=== PATIENT | female | born 1980 | race African-American/Black ===

== ENCOUNTER 2017-04-12 05:30 | Outpatient (CLI) | payer MEDICAID ==
[~2017-04-12] VITALS: Ht 167.6 cm; Wt 149.7 kg
[~2017-04-12 05:30] MED LIST: AC500T PO; AMOX500C2 PO; CARB200T6 PO; CETI10TA17 PO; CYCL10TA9 PO; DULO30CA PO; GABA800T2 PO; HCTZ12.5T PO; HYDR-3816 PO; HYDR-757 PO; HYDR1TAB3 PO; IBP800T PO; LRZ1T PO; METR500T PO; MOBIC; MTF500T PO; NAPR-243 PO; OMEP40CA36 PO; ONDA8TAB9 PO; PREG50C PO; PRM25T PO; RABE20TA PO; TRAM50TA2 PO; TRAZ150T42 PO; VENL25TA5 PO
[2017-04-12] MEDS ORDERED: CHOL500050 PO (11:31)
[2017-04-12] MEDS ORDERED: NF-PILO5T PO (11:31)
[2017-04-12] MEDS ORDERED: CYCL10TA9 PO (11:31)
== END 2017-04-12 11:33 ==
LOC: PREOP 05:30
PROVIDERS: ATTEND Surgery
DX: Z01.818 Encounter for other preprocedural examination (principal); D64.9 Anemia, unspecified

== ENCOUNTER 2017-04-16 10:14 | Day surgery (SDC) | payer MEDICAID ==
[~2017-04-16] VITALS: Ht 167.6 cm; Wt 149.7 kg
[~2017-04-16 10:14] MED LIST changes: +CHOL500050 PO; +NF-PILO5T PO
--- OUTSIDE RECORDS SUMMARY | 2017-04-16 10:19 | XMS REPORT | Continuity of Care Document ---
Author Author [employer] Organization [facility] Address Unknown Phone Unavailable Care Team Providers Care Director Of Tax Services Name Role Phone [employer] Unavailable Unavailable Problems Medications Allergies, Adverse Reactions, Alerts Immunizations Results Vital Signs Encounters Location Location Details Encounter Type Encounter Number Reason For Visit Attending Provider ADM Date DC Date Status Source O 02/19/2017 Active [facility] OUTPATIENT [id number] JONI ACKERMAN 02/19/20172016 Active [facility] Procedures Plan of Care Social History Assessment and Plan Family History Value Date Source Advance Directives Order Name Results Value Date Source
--- OUTSIDE RECORDS SUMMARY | 2017-04-16 10:19 | XMS REPORT | Clinical Summary ---
Author Author [facility] Organization [facility] Address Unknown Phone Unavailable Care Team Providers Care Warehouse Insulation Worker Name Role Phone PCP Unavailable Source Comments Some departments are not documenting in the electronic medical record. If you do not see the information that you expected, contact Release of Information in the Health Information Management department at [phone] for further assistance in locating additional records.[facility] Allergies Active Allergy Reactions Severity Noted Date Comments Meperidine SWELLING 07/23/2007 Duloxetine NAUSEA AND VOMITING Low 12/21/2015 Venlafaxine NAUSEA ONLY Low 12/21/2015 Pregabalin NAUSEA AND VOMITING Low 12/21/2015 Naproxen NAUSEA AND VOMITING Low 12/21/2015 Gabapentin NAUSEA AND VOMITING Low 12/21/2015 Current Medications Prescription Sig. Disp. Refills Start End Date Status Date cyclobenzaprine Take 10 mg by mouth three Active (FLEXERIL) 10 mg tablet times daily as needed for Muscle Cramps. traMADol (ULTRAM) 50 mg Take 50 mg by mouth every Active tablet 6 hours as needed for Pain. omeprazole DR(+) Take 40 mg by mouth twice Active (PRILOSEC) 40 mg capsule daily. sertraline (ZOLOFT) 100 Take 100 mg by mouth Active mg tablet daily. hydrocortisone (CORTEF) 5 Take 20 mg by mouth daily Active mg tab with breakfast. HYDROcodone/acetaminophen Take 1 Tab by mouth every Active (NORCO) 7.5/325 mg tablet 6 hours as needed for Pain ergocalciferol (VITAMIN Take 1 Cap by mouth every 8 Cap 0 02/24/20 Active D) 50,000 unit 7 days. After eight 16 capsuleIndications: weeks, recheck blood VITAMIN D DEFICIENCY level. Indications: VITAMIN D DEFICIENCY fluticasone (FLONASE) 50 Apply to each nostril as Active mcg/actuation nasal spray directed daily. Shake bottle gently before using. vitamins, B complex tab Take 1 Tab by mouth Active daily. carBAMazepine (TEGRETOL) Take 1 Tab by mouth twice 60 Tab 2 11/16/19 Active 200 mg tabletIndications: daily. 17 Fibromyalgia, Carpal tunnel syndrome of left wrist, Paresthesia of both feet phentermine-topiramate Take 1 Cap by mouth every Active (QSYMIA) 3.75-23 mg morning. capsule pilocarpine (SALAGEN) 5 Take 1 Tab by mouth three 100 Tab 3 11/22/19 Active mg tabletIndications: times daily. Indications: 17 XEROSTOMIA XEROSTOMIA Active Problems Problem Noted Date Chronic pain of left knee 08/01/2016 Idiopathic polyneuropathy 04/17/2016 JOSE positive 04/17/2016 Chronic nonintractable headache 04/17/2016 Heat intolerance 04/17/2016 Malaise and fatigue 02/22/2016 Hypovitaminosis D 02/22/2016 Fibromyalgia 12/21/2015 Bipolar affective disorder (HCC) 08/19/2007 Alcoholism ([facility]) 08/19/2007 Obesity 08/19/2007 Encounters Date Type Specialty Care Team Description 02/19/2017 Hospital Tab Norman DO Fibromyalgia Encounter 02/19/2017 Office Visit Neurology Tab Norman DO Fibromyalgia (Primary Dx);Idiopathic polyneuropathy;JOSE positive;Morbid obesity, unspecified obesity type 02/11/2017 Telephone Allergy,Immunology and Emerald Arita MD Follow- up Phone Call Rheumatology from Last 3 Months Family History Medical History Relation Name Comments Autism Brother Allergy-severe Daughter Arthritis Father Heart Attack Mother Heart Disease Mother Arthritis Other Cancer Other Colon/ Breast Diabetes Other Stroke Other Allergy-severe Son Anxiety Son Fibromyalgia Son Inflammatory Bowel Son Disease Other Son Chronic Fatigue Syndrome Relation Name Status Comments Brother Alive Daughter Alive Father Alive Maternal Grandmother cancer, ? primary Mother obese, panic attacks Other Paternal Grandfather colon cancer Son Alive Social History Tobacco Use Types Packs/Day Years Used Date Never Smoker Smokeless Tobacco: Never Used Tobacco Cessation: Counseling Given: No Alcohol Use Drinks/Week oz/Week Comments No 0 Standard 0.0 drinks three times a year now drinks or equivalent Sex Assigned at Date Recorded Not on file Last Filed Vital Signs Vital Sign Reading Time Taken Blood Pressure 146/87 02/19/2017 10:31 AM CDT Pulse 99 02/19/2017 10:31 AM CDT Temperature 37.1 C (98.7 F) 02/19/2017 10:31 AM CDT Respiratory Rate 16 02/19/2017 10:31 AM CDT Oxygen Saturation 100% 02/19/2017 10:31 AM CDT Inhaled Oxygen - - Concentration Weight 151 kg (333 lb) 02/19/2017 10:31 AM CDT Height 167.6 cm (5' 6") 02/19/2017 10:31 AM CDT Body Mass Index 53.75 02/19/2017 10:31 AM CDT Plan of Treatment Health Maintenance Due Date Last Done Comments PHYSICAL (COMPREHENSIVE) 1988 EXAM PERTUSSIS VACCINE 1992 TETANUS VACCINE 1998 CERVICAL CANCER SCREENING 2011 INFLUENZA VACCINE 01/29/2017 Results * CBC AND DIFF (02/19/2017 11:52 AM) Component Value Ref Range White Blood Cells 6.1 4.5 - 11.0 K/UL RBC 4.68 4.0 - 5.0 M/UL Hemoglobin 11.6 (L) 12.0 - 15.0 GM/DL Hematocrit 36.1 36 - 45 % MCV 77.2 (L) 80 - 100 FL MCH 24.7 (L) 26 - 34 PG MCHC 32.0 32.0 - 36.0 G/DL RDW 15.0 11 - 15 % Platelet Count 278 150 - 400 K/UL MPV 8.8 7 - 11 FL Neutrophils 51 41 - 77 % Lymphocytes 39 24 - 44 % Monocytes 7 4 - 12 % Eosinophils 2 0 - 5 % Basophils 1 0 - 2 % Absolute Neutrophil Count 3.10 1.8 - 7.0 K/UL Absolute Lymph Count 2.40 1.0 - 4.8 K/UL Absolute Monocyte Count 0.40 0 - 0.80 K/UL Absolute Eosinophil Count 0.10 0 - 0.45 K/UL Absolute Basophil Count 0.10 0 - 0.20 K/UL Specimen Performing Laboratory [facility] [address] [place] [address] * COMPREHENSIVE METABOLIC PANEL (02/19/2017 11:52 AM) Component Value Ref Range Sodium 140 137 - 147 MMOL/L Potassium 3.9 3.5 - 5.1 MMOL/L Chloride 108 98 - 110 MMOL/L Glucose 96 70 - 100 MG/DL Blood Urea Nitrogen 12 7 - 25 MG/DL Creatinine 0.92 0.4 - 1.00 MG/DL Calcium 9.0 8.5 - 10.6 MG/DL Total Protein 7.0 6.0 - 8.0 G/DL Total Bilirubin 0.3 0.3 - 1.2 MG/DL Albumin 3.8 3.5 - 5.0 G/DL Alk Phosphatase 67 25 - 110 U/L AST (SGOT) 16 7 - 40 U/L CO2 25 21 - 30 MMOL/L ALT (SGPT) 17 7 - 56 U/L Anion Gap 7 3 - 12 eGFR Non >60 >60 mL/min Comment: The eGFR is not validated for use in drug dosing adjustments. Continue to use estimated creatinine clearance per dosing reference text. Please contact the Clinical Pharmacist for questions. eGFR >60 >60 mL/min Comment: The eGFR is not validated for use in drug dosing adjustments. Continue to use estimated creatinine clearance per dosing reference text. Please contact the Clinical Pharmacist for questions. Specimen Performing Laboratory [facility] [address] [place] [address] from Last 3 Months
--- OUTSIDE RECORDS SUMMARY | 2017-04-16 10:20 | XMS REPORT ---
Author Author MILIND CHU [facility] Address [address] [place] [address] Care Team Providers Care Tail Board Man Name Role Phone MILIND CHU Unavailable PROBLEMS Type Condition ICD9-CM Code QAN92-AG Code Onset Dates Condition Status SNOMED Code Problem History of anemia Z86.2 Active 586039877 Problem Arthritis of both knees M19.90 Active 988379345 Problem Fibromyalgia M79.7 Active 78312842 Problem Pain in left knee M25.562 Active 30134441 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 85358377 Problem Pain in right knee M25.561 Active 11601693 Problem Unspecified nonsuppurative otitis media, right ear H65.91 Active 82831545 Problem Other chronic pain G89.29 Active 84964570 Problem Insomnia due to medical condition G47.01 Active 654108224 Problem Bad odor of urine R82.90 Active 988067661538700 Problem Long-term use of high-risk medication Z79.899 Active 893118647 Problem Tinnitus of right ear H93.11 Active 80501964 Problem Vitamin D deficiency E55.9 Active 82306620 Problem Pre-diabetes R73.03 Active 575929335 Problem Morbid obesity due to excess calories E66.01 Active 578339809 Problem SI (sacroiliac) pain M53.3 Active 496299881 Problem Neuropathy G62.9 Active 985976560 Problem Depression F32.9 Active 13276365 Problem Chronic fatigue R53.82 Active 27845621 Problem Chronic fatigue, unspecified R53.82 Active 46688756 Problem Heartburn R12 Active 54326634 Problem Memory change R41.3 Active 881402160 Problem Idiopathic neuropathy G60.9 Active 61825627 Problem Pain in right shoulder M25.511 Active 50974595 Problem Systemic involvement of connective tissue, unspecified M35.9 Active 629882596 ALLERGIES Substance Reaction Event Type Date Status Neurontin Unknown Drug Allergy Aug, Active Lyrica Nausea, diarrhea, headaches Drug Allergy Aug, Active Effexor Unknown Drug Allergy Aug, Active Cymbalta 30 Mg Capsule, Delayed Release(e.c.) Unknown Non Drug Allergy Aug, Active SOCIAL HISTORY Never Assessed PLAN OF CARE Activity Details Follow Up 4 Weeks Reason:weight VITAL SIGNS Height 68 in 2016-09-06 Weight 358 lbs 2016-09-06 Temperature 98.4 degrees Fahrenheit 2016-09-06 Heart Rate 70 bpm 2016-09-06 Respiratory Rate 20 2016-09-06 BMI 54.43 kg/m2 2016-09-06 Blood pressure systolic 110 mmHg 2016-09-06 Blood pressure diastolic 82 mmHg 2016-09-06 MEDICATIONS Medication Instructions Dosage Frequency Start Date End Date Duration Status Wheelchair - xtra large Jul, Active Carbamazepine 200 MG Orally Twice a day 1 tablet 12h Active Fluticasone Propionate 50 MCG/ACT Nasally Once a day 1 spray in each nostril 24h Sep, Active Phentermine HCl 37.5 MG Orally Once a day 1 tablet 24h Aug,Sep 28 days Active Omeprazole 40 MG Orally Once a day 1 capsule 24h Active Hydrocodone-Acetaminophen Active Cholecalciferol 54995 UNIT Orally once weekly for 8 weeks once completed start 5,000 units OTC daily 1 tablet Jul, Active Cetirizine HCl 10 MG Orally Once a day 1 tablet 24h Active Cyclobenzaprine HCl 10 mg Orally Three times a day 1 tablet 8h 30 Active RESULTS Name Result Date Reference Range A1C (IN HOUSE) 2016-09-06 A1C IN HOUSE 5.9 4.3 - 5.6 % Previous A1c N/A Lot [id number] Exp date PROCEDURES Procedure Date Ordered Result Body Site GLYCATED HEMOGLOBIN TEST September 06, 2016 IMMUNIZATIONS No Known Immunizations MEDICAL (GENERAL) HISTORY Type Description Date Medical History endocine disorders patient was told was pre-diabetec at urgent care Medical History fibromyalgia 2009 Medical History psychiatric disorders Bipolar dx 2 in 2nd grade not on anymeds at this time , PTSD Medical History ADHD in 2nd grade not on meds at this time Medical History chlamydial infections Medical History trichomoniasis Medical History Carpal tunnel syndrome Medical History Bipolar I disorder, most recent episode (or current) manic, moderate Medical History Anorexia Medical History Quit Smoking August 2015 Surgical History tubal ligation 2004 Surgical History right knee surgery 01/18/2016 Hospitalization History Surgeries only
--- OUTSIDE RECORDS SUMMARY | 2017-04-16 10:20 | XMS REPORT | Encounter Summary ---
Author Author [facility] Organization [facility] Address Unknown Phone Unavailable Care Team Providers Care Dressed Poultry Grader Name Role Phone PCP Unavailable Encounter Details Date Type Department Care Team Description [facility]2017 [facility] En[facility] [address] [facility] [address] [place] [address] [address] [place] [address] [phone] Social History Tobacco Use Types Packs/Day Years Used Date Never Smoker Smokeless Tobacco: Never Used Alcohol Use Drinks/Week oz/Week Comments No 0 Standard 0.0 drinks three times a year now drinks or equivalent Sex Assigned at Date Recorded Not on file as of this encounter Functional Status Functional Status Response Date of Assessment Does the patient have a hearing impairment: No 08/01/2016 Does the patient have a visual impairment: Yes 08/01/2016 Does the patient have impaired ambulation: Yes 08/01/2016 Does the patient have an activity of daily living No 08/01/2016 (ADL) impairment: Does the patient have an instrumental activity of No 08/01/2016 daily living (IADL) impairment: Cognitive Status Response Date of Assessment Does the patient have a cognitive impairment: No 08/01/2016 as of this encounter Medications at Time of Discharge Medication Sig. Disp. Refills Start Date End Date carBAMazepine (TEGRETOL) Take 1 Tab by mouth twice 60 Tab 2 2016 200 mg tabletIndications: daily. Fibromyalgia, Carpal tunnel syndrome of left wrist, Paresthesia of both feet cyclobenzaprine Take 10 mg by mouth three (FLEXERIL) 10 mg tablet times daily as needed for Muscle Cramps. ergocalciferol (VITAMIN Take 1 Cap by mouth every 8 Cap 0 02/24/2016 D) 50,000 unit 7 days. After eight capsuleIndications: weeks, recheck blood VITAMIN D DEFICIENCY level. Indications: VITAMIN D DEFICIENCY fluticasone (FLONASE) 50 Apply to each nostril as mcg/actuation nasal spray directed daily. Shake bottle gently before using. HYDROcodone/acetaminophen Take 1 Tab by mouth every (NORCO) 7.5/325 mg tablet 6 hours as needed for Pain hydrocortisone (CORTEF) 5 Take 20 mg by mouth daily mg tab with breakfast. omeprazole DR(+) Take 40 mg by mouth twice (PRILOSEC) 40 mg capsule daily. phentermine-topiramate Take 1 Cap by mouth every (QSYMIA) 3.75-23 mg morning. capsule pilocarpine (SALAGEN) 5 Take 1 Tab by mouth three 100 Tab 3 2016 mg tabletIndications: times daily. Indications: XEROSTOMIA XEROSTOMIA sertraline (ZOLOFT) 100 Take 100 mg by mouth mg tablet daily. traMADol (ULTRAM) 50 mg Take 50 mg by mouth every tablet 6 hours as needed for Pain. vitamins, B complex tab Take 1 Tab by mouth daily. as of this encounter Plan of Treatment Not on fileas of this encounter Results * COMPREHENSIVE METABOLIC PANEL (02/19/2017 11:52 AM) [...] Performing Laboratory [facility] [address] [place] [address] * CBC AND DIFF (02/19/2017 11:52 AM) [...] - 0.20 K/UL Specimen Performing Laboratory [facility] [address] [place] [address] in this encounter Visit Diagnoses Diagnosis Fibromyalgia Mylagia and myositis, unspecified Idiopathic polyneuropathy Unspecified hereditary and idiopathic peripheral neuropathy JOSE positive Other and unspecified nonspecific immunological findings Morbid obesity, unspecified obesity type (HCC) in this encounter Admitting Diagnoses Diagnosis Fibromyalgia Hereditary and idiopathic neuropathy, unspecified Other specified abnormal immunological findings in serum Morbid (severe) obesity due to excess calories (HCC) Morbid (severe) obesity due to excess calories in this encounter
--- OUTSIDE RECORDS SUMMARY | 2017-04-16 10:20 | XMS REPORT | Encounter Summary ---
Author Author [facility] Organization [facility] Address Unknown Phone Unavailable Care Team Providers Care Accounting Officer Name Role Phone PCP Unavailable Reason for Visit * Reason Comments Follow-up Phone Call Encounter Details Date Type Department Care Team Description 02/11/2017 Telephone [facility] Emerald Arita MD Follow-up Phone Call Physicians - Internal [address] [facility] Medicine [address] [place] [address] [address] [facility] [phone] [place] [address] Social History Tobacco Use Types Packs/Day Years [...] impairment: No 08/01/2016 as of this encounter Miscellaneous Notes * Telephone Encounter - Vero Cruz RN - 02/12/2017 2:46 PM CDT Per discussion with Dr. Arita, regarding labs and symptoms, left voicemail advising patient to arrange urgent visit with PCP or ordering provider of labs, if unable to see PCP then to go to urgent care. * Telephone Encounter - Amy Mcgee RN - 02/11/2017 3:01 PM CDT Pt called and lvm inquiring about results. Called pt and she stated that she was having some new symptoms. Pt stated that she does have neck and jaw pain. Pt stated that that the jaw pain is right below her ear. Pt stated that this is on both sides. Pt stated that she got results back that showed her creatinine was high. Pt stated that she has her labs done at [facility]. Pt stated that she had these done on 01/20/17. Pt stated that she has been experiencing some kidney pain, but no blood/odor/burning sensations. Pt stated that she has also had a metallic taste in her mouth lately. Pt stated that the salivary glands continue to be blocked and they are bigger as well. Informed pt that return call would be made with recommendations. Pt stated understanding. Routing to [facility] Pham for f/u. in this encounter Plan of Treatment Not on fileas of this encounter Visit Diagnoses Not on filein this encounter
--- OUTSIDE RECORDS SUMMARY | 2017-04-16 10:20 | XMS REPORT ---
Author Author MILIND CHU [facility] [employer] Address Unknown Phone Unavailable Care Team Providers Care Director Specialty Name Role Phone MILIND CHU CP Unavailable Allergies No Known Allergies Problems Problem Type Condition ICD-9 Code Onset Dates Condition Status Problem Dysfunction of Eustachian tube 381.81 Active Problem Disturbance of skin sensation 782.0 Active Problem Nausea with vomiting 787.01 Active Problem Unspecified tinnitus 388.30 Active Problem Candidiasis of skin and nails 112.3 Active Problem Insomnia, unspecified 780.52 Active Problem Cough 786.2 Active Problem Acute pharyngitis 462 Active Problem Pain in joint, site unspecified 719.40 Active Problem Unspecified hereditary and idiopathic peripheral neuropathy 356.9 Active Problem Unspecified episodic mood disorder 296.90 Active Problem Unspecified visual loss 369.9 Active Problem Unspecified sleep disturbance 780.50 Active Problem Pain in joint, lower leg 719.46 Active Problem Anxiety state, unspecified 300.00 Active Problem Allergic rhinitis, cause unspecified 477.9 Active Problem Other atopic dermatitis and related conditions 691.8 Active Problem Pain in soft tissues of limb 729.5 Active Problem Pain in thoracic spine 724.1 Active Problem Other diseases of nasal cavity and sinuses 478.19 Active Problem Anorexia 783.0 Active Problem Excessive or frequent menstruation 626.2 Active Problem Screening for malignant neoplasm of the cervix V76.2 Active Problem Unspecified pruritic disorder 698.9 Active Problem Carpal tunnel syndrome 354.0 Active Problem Bipolar I disorder, most recent episode (or current) mixed, moderate 296.62 Active Problem Routine general medical examination at health care facility V70.0 Active Problem Depressive disorder, not elsewhere classified 311 Active Problem Other and unspecified bipolar disorders 296.89 Active Problem Chondromalacia 733.92 Active Problem Contact dermatitis and other eczema, due to unspecified cause 692.9 Active Problem Unspecified alopecia 704.00 Active Problem Bipolar I disorder, most recent episode (or current) manic, moderate 296.42 Active Medications No Known Medications Results No Known Results Summary Purpose [employer] Submission
--- OUTSIDE RECORDS SUMMARY | 2017-04-16 10:20 | XMS REPORT | Encounter Summary ---
Author Author [facility] Organization [facility] Address Unknown Phone Unavailable Care Team Providers Care Sole Leather Cutting Machine Operator Name Role Phone PCP Unavailable Reason for Visit * Reason Comments Neuropathy 6mo FUV Weakness left side of body, has worsened Other numbness in the feet Encounter Details Date Type Department Care Team Description 02/19/2017 [facility] Visit [facility] Tab Norman DO Fibromyalgia (Primary [address] Dx);Idiopathic DC DEWEY MS 2011 polyneuropathy;JOSE [place] [address] positive;Morbid obesity, [place] [address] unspecified obesity type [phone] Social History Tobacco Use Types Packs/Day Years Used Date Never Smoker Smokeless Tobacco: Never Used Alcohol Use Drinks/Week oz/Week Comments No 0 Standard 0.0 drinks three times a year now drinks or equivalent Sex Assigned at Date Recorded Not on file as of this encounter Last Filed Vital Signs Vital Sign Reading [...] Mass Index 53.75 02/19/2017 10:31 AM CDT in this encounter Functional Status Functional Status Response [...] impairment: No 08/01/2016 as of this encounter Progress Notes * Tab Norman, DO - 02/19/2017 10:00 AM CDT Formatting of this note may be different from the original. Date of Service: 02/19/2017 Subjective: Prisca Randall is a 36 y.o. female. History of Present Illness I last saw Prisca in March. She says that her symptoms have intensified. There is increased tingling in both feet. It happens daily and is worse at night. It lasts about 20 minutes. Getting up to walking can help. She has had associated cramps in the legs 'something feeling.' She grads it 03/10. She saw Rheumatology because of an elevated JOSE level. No definite connective tissue disease has yet been found. She has fibromyalgia. She says that she is 'confined to my bedroom.' She says she finds it very hard to get up and move around in the shop. She saw Dr. Horton and has not been back to see her. She do not agree with the advice to ' get up and move around more.' She says that she is trying to do more activity on her own such as get up and walking, standing to cook, and picking up things around the house. She is also planning and considering bariatric surgery for weight loss. She has lost 25 pounds, but she does not think she will be able to lose as much weight she needs to on her own. She has tried gabapentin, Cymbalta, and Lyrica in the past. Previous EMG have shown a mild sensorimotor polyneuropathy. Workup was otherwise benign except for positive JOSE. Previous MRI head from November 06, 2016, was also unremarkable. There is no sign of any demyelinating process. She says that she has been told that she had 'kidney problems.' Last blood work here from October showed normal renal function. There have been no other changes. ([id number]) Review of Systems Constitutional: Positive for activity change, appetite change, chills, diaphoresis and fatigue. HENT: Positive for dental problem, hearing loss, mouth sores, sneezing, sore throat and tinnitus. Eyes: Positive for photophobia. Respiratory: Positive for apnea, cough, chest tightness and shortness of breath. Cardiovascular: Positive for leg swelling. Gastrointestinal: Positive for abdominal pain, constipation, diarrhea and nausea. Endocrine: Positive for cold intolerance and heat intolerance. Genitourinary: Positive for flank pain, frequency, menstrual problem and pelvic pain. Musculoskeletal: Positive for arthralgias, back pain, joint swelling, neck pain and neck stiffness. Skin: Positive for rash and wound. Allergic/Immunologic: Negative. Neurological: Positive for dizziness, speech difficulty, weakness, light- headedness, numbness and headaches. Hematological: Bruises/bleeds easily. Psychiatric/Behavioral: Positive for agitation, confusion, decreased concentration and sleep disturbance. The patient is nervous/anxious. Chief Complaint: Chief Complaint Patient presents with Neuropathy 6mo FUV Weakness left side of body, has worsened Other numbness in the feet Past Medical History: Past Medical History: Diagnosis Date Anemia Anxiety disorder Arthritis Asthma Bipolar affective disorder (HCC) diagnosed as child, eighth grade Cancer (HCC) Depression Fibromyalgia Hx: recurrent pneumonia Hypertension OA (osteoarthritis) Surgical History: Past Surgical History: Procedure Laterality Date HX CHOLECYSTECTOMY 02/02 HX SURGERY L.E.A.P LEEP PROCEDURE 2005 TUBAL LIGATION Social History: Social History Social History Marital status: Single Spouse name: N/A Number of children: N/A Years of education: N/A Occupational History Not on file. Social History Main Topics Smoking status: Never Smoker Smokeless tobacco: Never Used Alcohol use No Comment: drinks three times a year now Drug use: No Sexual activity: Not on file Other Topics Concern Not on file Social History Narrative Family History: Family History Problem Relation Age of Onset Heart Attack Mother Heart Disease Mother Arthritis Father Autism Brother Anxiety Son Inflammatory Bowel Disease Son Allergy-severe Son Fibromyalgia Son Other Son Chronic Fatigue Syndrome Allergy-severe Daughter Cancer Other Colon/ Breast Arthritis Other Diabetes Other Stroke Other Allergies: Allergies Allergen Reactions Meperidine SWELLING Cymbalta [Duloxetine] NAUSEA AND VOMITING Effexor [Venlafaxine] NAUSEA ONLY Lyrica [Pregabalin] NAUSEA AND VOMITING Naproxen NAUSEA AND VOMITING Neurontin [Gabapentin] NAUSEA AND VOMITING Objective: carBAMazepine (TEGRETOL) 200 mg tablet Take 1 Tab by mouth twice daily. cyclobenzaprine (FLEXERIL) 10 mg tablet Take 10 mg by mouth three times daily as needed for Muscle Cramps. ergocalciferol (VITAMIN D) 50,000 unit capsule Take 1 Cap by mouth every 7 days. After eight weeks, recheck blood level. Indications: VITAMIN D DEFICIENCY fluticasone (FLONASE) 50 mcg/actuation nasal spray Apply to each nostril as directed daily. Shake bottle gently before using. HYDROcodone/acetaminophen (NORCO) 7.5/325 mg tablet Take 1 Tab by mouth every 6 hours as needed for Pain hydrocortisone (CORTEF) 5 mg tab Take 20 mg by mouth daily with breakfast. omeprazole DR(+) (PRILOSEC) 40 mg capsule Take 40 mg by mouth twice daily. phentermine-topiramate (QSYMIA) 3.75-23 mg capsule Take 1 Cap by mouth every morning. pilocarpine (SALAGEN) 5 mg tablet Take 1 Tab by mouth three times daily. Indications: XEROSTOMIA sertraline (ZOLOFT) 100 mg tablet Take 100 mg by mouth daily. traMADol (ULTRAM) 50 mg tablet Take 50 mg by mouth every 6 hours as needed for Pain. vitamins, B complex tab Take 1 Tab by mouth daily. Vitals: 02/19/17 1031 BP: 146/87 Pulse: 99 Resp: 16 Temp: 37.1 C (98.7 F) TempSrc: Oral SpO2: 100% Weight: (!) 151 kg (333 lb) Height: 167.6 cm (66") Body mass index is 53.75 kg/(m^2). Physical Exam General: AAOx4, NAD HEENT: NC/AT Cardiac: RRR Speech: fluent, no dysarthria or aphasia CN:PERRL, EOMI, facial sensation symmetric, No facial droop, tongue midline Motor: tone normal Strength: SA/EF/EE/WF/WE/HF/KE/DF/ 5/5 Sensation: LT symmetric in all limbs DTRs, 2/2 in BR/B / P/A Gait: antalgic without ataxia, uses cane Assessment and Plan: 1. Fibromyalgia. 2. Mild sensorimotor polyneuropathy. 3. Positive JOSE. Plan: 1. Increase carbamazepine to 400 b.i.d. Side effect risks were discussed today. 2. Check CBC and CMP. I have asked the patient to follow up results on MyChart before starting carbamazepine. She will have labs drawn today. 3. I offered physical therapy, which she declined it. 4. She is planning on bariatric surgery, which I think could be helpful for her generalized pain. 5. Follow up with pain management. She says that she has not gone back and seeing Dr. Horton. Chronic pain management probably will be most helpful for her. 6. If she does not respond to carbamazepine, I do not think there is really anything else neurologically that I am going to offer for her. For now, I will set up a six-month followup. If there is side effect or neurologic changes, I have asked her to call me. If however, she has had similar symptoms as now, then I will consider discharging her to care of her primary care provider with recommended pain management followup. ([id number]) This note was prepared with partial use of dictation and errors of satellite dish technician are possible. Please contact me with any questions. in this encounter Plan of Treatment Not [...] Pharmacist for questions. Specimen Performing Laboratory [facility] [address] [place] [address] * CBC AND DIFF (02/19/2017 11:52 AM) [...] Specimen Performing Laboratory [facility] MA[facility] [address] [place] [address] in this encounter Visit Diagnoses Diagnosis Fibromyalgia - Primary Mylagia and myositis, unspecified Idiopathic polyneuropathy Unspecified hereditary and idiopathic peripheral neuropathy JOSE positive Other and unspecified nonspecific immunological findings Morbid obesity, unspecified obesity type (HCC) in this encounter
--- OUTSIDE RECORDS SUMMARY | 2017-04-16 10:20 | XMS REPORT ---
Author Author MILIND CHU [facility] e[employer] Address Unknown Phone Unavailable Care Team Providers Care Social Media Analyst Name Role Phone MILIND CHU CP Unavailable Allergies, Adverse Reactions, Alerts Substance Reaction Event Type Neurontin Info Not Available Drug Allergy Lyrica Nausea, diarrhea, headaches Drug Allergy Effexor Info Not Available Drug Allergy Cymbalta 30 Mg Capsule, Delayed Release(e.c.) Info Not Available Non Drug Allergy Problems Problem Type Condition Code Onset Dates Condition Status Assessment Middle ear effusion, right H65.91 Active Problem Fibromyalgia M79.7 Active 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 Assessment Heartburn R12 Active Assessment Fibromyalgia M79.7 Active Problem Depression F32.9 Active Problem Long-term use of high-risk medication Z79.899 Active Problem Chronic fatigue R53.82 Active Problem Tinnitus of right ear H93.11 Active Problem Vitamin D deficiency E55.9 Active Problem Heartburn R12 Active Problem Chronic fatigue, unspecified R53.82 Active Medications Medication Code System Code Instructions Start Date End Date Status Dosage Zyrtec Allergy [facility] [address]-36 10 mg Orally Once a day October 27, 2015 Apr 24, 2016 1 tablet as needed Cortisporin [facility] [address]-59 3.5-45943-7 Otic Three times a day January 08, 2016 4 drops into affected ear Omeprazole [facility] [address]-99 40 MG Orally Once a day 1 capsule Cyclobenzaprine HCl [facility] [address]-42 10 MG TAKE ONE TABLET BY MOUTH THREE TIMES DAILY NEEDED PredniSONE [facility] [address]-06 40 mg Orally Once a day start 01/09/16DecemberJanuary 12, 2016 1 tablet Tramadol HCl [facility] [address]-41 50 mg Orally every 6 hrs prn must last 30 days 1 tablet as needed sertraline [facility] 0 100 mg Apr 12, 2014 1 tablet by Oral route 1 time per day Fluticasone Propionate [facility] [address]-94 50 MCG/ACT Nasally Once a day October 27, 2015 1 spray in each nostril Carbamazepine [facility] [address]-51 200 MG Orally Twice a day 1 tablet Procedures Procedure Coding System Code Date Office Visit, Est Pt., Level 4 CPT-4 15439 January 11, 2016 Vital Signs Date/Time: January 11, 2016 Cardiac Monitoring Heart Rate 80 bpm Weight 349.1 lbs Height 68 in Blood Pressure Diastolic 78 mmHg Blood Pressure Systolic 126 mmHg Results No Known Results Summary Purpose eClinicalWorks Submission
--- OUTSIDE RECORDS SUMMARY | 2017-04-16 10:20 | XMS REPORT ---
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 01659953 Problem Pain in right knee M25.561 Active 61232152 Problem Unspecified nonsuppurative otitis media, right ear H65.91 Active 87382598 Problem Other chronic pain G89.29 Active 12896280 Problem Insomnia due to medical condition G47.01 Active 689873876 Problem Bad odor of urine R82.90 Active 923927983676752 Problem Long-term use of high-risk medication Z79.899 Active 799873276 Problem Tinnitus of right ear H93.11 Active 37254029 Problem Vitamin D deficiency E55.9 Active 18294214 Problem Pre-diabetes R73.03 Active 166619839 Problem Morbid obesity due to excess calories E66.01 Active 124259769 Problem SI (sacroiliac) pain M53.3 Active 720012967 Problem Neuropathy G62.9 Active 579949509 Problem Depression F32.9 Active 90838743 Problem Chronic fatigue R53.82 Active 13449939 Problem Chronic fatigue, unspecified R53.82 Active 87319971 Problem Heartburn R12 Active 51031720 Problem Memory change R41.3 Active 543458234 Problem Idiopathic neuropathy G60.9 Active 73648808 Problem Pain in right shoulder M25.511 Active 89578174 Problem Systemic involvement of connective tissue, unspecified M35.9 Active 382674270 ALLERGIES Unknown Allergies SOCIAL HISTORY No smoking Hx information available PLAN OF CARE VITAL SIGNS MEDICATIONS Medication Instructions Dosage Frequency Start Date End Date Duration Status Cholecalciferol 61253 UNIT Orally once weekly for 8 weeks once completed start 5,000 units OTC daily 1 tablet Jul, Active RESULTS No Results PROCEDURES No Known procedures IMMUNIZATIONS No Known Immunizations
--- OUTSIDE RECORDS SUMMARY | 2017-04-16 10:20 | XMS REPORT ---
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
--- OUTSIDE RECORDS SUMMARY | 2017-04-16 10:21 | XMS REPORT ---
Author Author MILIND CHU Organization [employer] Address Unknown Phone Unavailable Care Team Providers Care Homicide Investigator Name Role Phone MILIND CHU CP Unavailable [...]
--- OUTSIDE RECORDS SUMMARY | 2017-04-16 10:21 | XMS REPORT ---
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 Problem Vitamin D deficiency E55.9 Active Assessment Vitamin D deficiency E55.9 Active Assessment Diarrhea R19.7 Active Assessment Fibromyalgia M79.7 Active Assessment 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 Medications Medication Code System Code Instructions Start Date End Date Status Dosage Cyclobenzaprine HCl [facility] [address]-46 10 MG Orally Three times a day prn 1 [place] [address]-02 20 MG Orally Once a day September 08, 2014 1 Tablet by Oral route 1 time per day Vitamin D3 [facility] 48361-[address]16 1,000 unit September 14, 2014 3 Tablet by Oral route 1 time per day total of 3,000 units daily sertraline NDC 0 100 mg Apr 12, 2014 1 tablet by Oral route 1 time per day Tramadol HCl [facility] [address]-67 50 MG Orally every 6 hrs 1 tablet as needed Procedures Procedure Coding System Code Date Office Visit, Est Pt., Level 4 CPT-4 59557 Apr 06, 2015 COMPREHEN METABOLIC PANEL CPT-4 94372 Apr 06, 2015 Vital Signs Date/Time: Apr 06, 2015 Temperature 97.4 F Weight 306.0 lbs Height 68 in BMI 46.52 Index Blood Pressure Diastolic 84 mmHg Blood Pressure Systolic 128 mmHg Cardiac Monitoring Heart Rate 80 bpm Results No Known Results Summary Purpose eClinicalWorks Submission
--- OUTSIDE RECORDS SUMMARY | 2017-04-16 10:21 | XMS REPORT ---
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 87823338 Problem Pain in right knee M25.561 Active 67424424 Problem Unspecified nonsuppurative otitis media, right ear H65.91 Active 01839656 Problem Other chronic pain G89.29 Active 03319302 Problem Insomnia due to medical condition G47.01 Active 718435860 Problem Bad odor of urine R82.90 Active 053838409039406 Problem Long-term use of high-risk medication Z79.899 Active 875077405 Problem Tinnitus of right ear H93.11 Active 29260297 Problem Vitamin D deficiency E55.9 Active 65820983 Problem Pre-diabetes R73.03 Active 861530488 Problem Morbid obesity due to excess calories E66.01 Active 655982746 Problem SI (sacroiliac) pain M53.3 Active 228225023 Problem Neuropathy G62.9 Active 258296774 Problem Depression F32.9 Active 23832824 Problem Chronic fatigue R53.82 Active 69677125 Problem Chronic fatigue, unspecified R53.82 Active 94053357 Problem Heartburn R12 Active 96954477 Problem Memory change R41.3 Active 776890320 Problem Idiopathic neuropathy G60.9 Active 70331125 Problem Pain in right shoulder M25.511 Active 23730890 Problem Systemic involvement of connective tissue, unspecified M35.9 Active 592612231 ALLERGIES No Information SOCIAL HISTORY Never Assessed PLAN OF CARE VITAL SIGNS MEDICATIONS Unknown Medications RESULTS No Results PROCEDURES No Known procedures IMMUNIZATIONS No Known Immunizations MEDICAL (GENERAL) HISTORY Type Description Date Medical History 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
--- OUTSIDE RECORDS SUMMARY | 2017-04-16 10:21 | XMS REPORT ---
Author Author MILIND CHU [facility] e[employer] Address Unknown Phone Unavailable Care Team Providers Care Concession Attendant Name Role Phone MILIND CHU CP Unavailable [...] medication Z79.899 Active Problem Heartburn R12 Active Assessment H/O right knee surgery Z98.89 Active Assessment Fibromyalgia M79.7 Active Assessment Pain in right shoulder M25.511 Active Assessment Dermatitis L30.9 Active Medications Medication Code System Code Instructions Start Date End Date Status Dosage Zyrtec Allergy [facility] [address]-25 10 mg Orally Once a day October 27, 2015 Apr 24, 2016 1 tablet as needed Cortisporin [facility] [address]-74 3.5-86447-0 Otic Three times a day January 08, 2016 4 drops into affected ear Cyclobenzaprine HCl [facility] [address]-22 10 mg Orally Three times a day 1 tablet Tramadol HCl [facility] [address]-40 50 mg Orally every 6 hrs prn must last 30 days 1 tablet as needed Fluticasone Propionate [facility] [address]-82 50 MCG/ACT Nasally Once a day October 27, 2015 1 spray in each nostril Carbamazepine [facility] [address]-83 200 MG Orally Twice a day 1 tablet Triamcinolone Acetonide [facility] [address]-56 0.1 % Externally Twice a day Feb 15, 2016 1 application to affected area PredniSONE [facility] [address]-93 10 mg Orally twice a day Feb 15, 2016Jan 1 tablet Omeprazole [facility] [address]-42 40 MG Orally Once a day 1 capsule Bath/Shower Seat [facility] 07834-26[address] -1 SHOWER CHAIR NEEDED FOR SAFETY Feb 15, 2016 as directed sertraline [facility] 0 100 mg Apr 12, 2014 1 tablet by Oral route 1 time per day Procedures Procedure Coding System Code Date Office Visit, Est Pt., Level 4 CPT-4 28101 Feb 15, 2016 X-RAY EXAM OF SHOULDER CPT-4 38057 Feb 15, 2016 Vital Signs Date/Time: Feb 15, 2016 Cardiac Monitoring Heart Rate 88 bpm Weight 360 lbs Height 68 in BMI 54.73 Index Blood Pressure Diastolic 76 mmHg Blood Pressure Systolic 132 mmHg Results No Known Results Summary Purpose eClinicalWorks Submission
--- OUTSIDE RECORDS SUMMARY | 2017-04-16 10:21 | XMS REPORT ---
Author Author JADE FERNANDES [facility] [employer] Address Unknown Phone Unavailable Care Team Providers Care Lace Inspector Name Role Phone JADE FERNANDES Unavailable Allergies, Adverse Reactions, Alerts Substance Reaction Event Type Neurontin Info Not Available Drug Allergy Lyrica Nausea, diarrhea, headaches Drug Allergy Effexor Info Not Available Drug Allergy Cymbalta 30 Mg Capsule, Delayed Release(e.c.) Info Not Available Non Drug Allergy Problems Problem Type Condition Code Onset Dates Condition Status Assessment Otalgia of right ear H92.01 Active Problem Fibromyalgia M79.7 Active 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 Assessment Middle ear effusion, right H65.91 Active Problem Depression F32.9 Active Problem Long-term use of high-risk medication Z79.899 Active Problem Chronic fatigue R53.82 Active Problem Tinnitus of right ear H93.11 Active Problem Vitamin D deficiency E55.9 Active Problem Heartburn R12 Active Problem Chronic fatigue, unspecified R53.82 Active Medications Medication Code System Code Instructions Start Date End Date Status Dosage sertraline ND 0 100 mg Apr 12, 2014 1 tablet by Oral route 1 time per day Sudafed 12 Hour [facility] [address]-66 120 MG Orally every 12 hrs for decongestion January 08, 2016 1 tablet Cyclobenzaprine HCl [facility] [address]-33 10 MG TAKE ONE TABLET BY MOUTH THREE TIMES DAILY NEEDED Omeprazole [facility] [address]-23 40 mg Orally Once a day Jul 28, 2015 1 capsule Cortisporin [facility] [address]-32 3.5-78491-3 Otic Three times a day January 08, 2016 4 drops into affected ear Vitamin D3 [facility] 57588-57626 1,000 unit 3 Tablet by Oral route 1 time per day total of 3,000 units daily Fluticasone Propionate [facility] [address]-84 50 MCG/ACT Nasally Once a day October 27, 2015 1 spray in each nostril Zoloft NDC 0 100 mg Oral 2 tab Tramadol HCl [facility] [address]-61 50 mg Orally every 6 hrs prn must last 30 days 1 tablet as needed PredniSONE [facility] [address]-85 40 mg Orally Once a day start 01/09/16DecemberJanuary 12, 2016 1 tablet Zyrtec Allergy [facility] [address]-59 10 mg Orally Once a day October 27, 2015 Apr 24, 2016 1 tablet as needed Procedures Procedure Coding System Code Date THER/PROPH/DIAG INJ, SC/IM CPT-4 22705 January 08, 2016 Office Visit, Est Pt., Level 3 CPT-4 80448 January 08, 2016 SOLUMEDROL (UP TO 125 MG) CPT-4 J2930 January 08, 2016 Vital Signs Date/Time: January 08, 2016 Cardiac Monitoring Heart Rate 88 bpm Weight 340.6 lbs Height 68 in Blood Pressure Diastolic 78 mmHg Blood Pressure Systolic 128 mmHg Results No Known Results Summary Purpose eClinicalWorks Submission
--- OUTSIDE RECORDS SUMMARY | 2017-04-16 10:21 | XMS REPORT ---
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
--- OUTSIDE RECORDS SUMMARY | 2017-04-16 10:21 | XMS REPORT ---
Author Author MILIND CHU [facility] eClinicalWorks Address Unknown Phone Unavailable Care Team Providers Care Medical Office Representative Name Role Phone MILIND CHU CP Unavailable [...] Z79.899 Active Problem Heartburn R12 Active Medications Medication Code System Code Instructions Start Date End Date Status Dosage Tramadol HCl [facility] [address]-78 50 mg Orally every 6 hrs prn must last 28 days- appt needed for futher refills 1 tablet as needed Results No Known Results Summary Purpose eClinicalWorks Submission
--- OUTSIDE RECORDS SUMMARY | 2017-04-16 10:22 | XMS REPORT ---
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
--- OUTSIDE RECORDS SUMMARY | 2017-04-16 10:22 | XMS REPORT ---
Author Author MACKENZIE SANCHEZ [facility] Address [address] [place] [address] Care Team Providers Care Plans Examiner Name Role Phone DANIEL MACKENZIE Unavailable PROBLEMS Type Condition ICD9-CM Code [id number] Code Onset Dates Condition Status SNOMED Code Problem Pain in right knee M25.561 Active 78046207 Problem Unspecified nonsuppurative otitis media, right ear H65.91 Active 89000162 Problem Other chronic pain G89.29 Active 74631786 Problem Insomnia due to medical condition G47.01 Active 391253702 Problem Long-term use of high-risk medication Z79.899 Active 853491425 Problem Bad odor of urine R82.90 Active 120156868445481 Problem Tinnitus of right ear H93.11 Active 80701291 Problem Vitamin D deficiency E55.9 Active 21589675 Problem Pre-diabetes R73.03 Active 869308913 Problem Morbid obesity due to excess calories E66.01 Active 754376580 Problem SI (sacroiliac) pain M53.3 Active 300372000 Problem Neuropathy G62.9 Active 260566864 Problem Depression F32.9 Active 14929969 Problem Chronic fatigue R53.82 Active 35608899 Problem Chronic fatigue, unspecified R53.82 Active 16045901 Problem Heartburn R12 Active 79991341 Problem Memory change R41.3 Active 909109137 Problem Idiopathic neuropathy G60.9 Active 54271353 Problem Fibromyalgia M79.7 Active 92813058 Problem Pain in right shoulder M25.511 Active 58403137 Problem Arthritis of both knees M19.90 Active 913805915 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
--- OUTSIDE RECORDS SUMMARY | 2017-04-16 10:22 | XMS REPORT ---
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 00158925 Problem Pain in right knee M25.561 Active 73511680 Problem Unspecified nonsuppurative otitis media, right ear H65.91 Active 87272016 Problem Other chronic pain G89.29 Active 97536318 Problem Insomnia due to medical condition G47.01 Active 750190020 Problem Bad odor of urine R82.90 Active 687623771307259 Problem Long-term use of high-risk medication Z79.899 Active 273175480 Problem Tinnitus of right ear H93.11 Active 25222270 Problem Vitamin D deficiency E55.9 Active 95826455 Problem Pre-diabetes R73.03 Active 370030749 Problem Morbid obesity due to excess calories E66.01 Active 262099155 Problem SI (sacroiliac) pain M53.3 Active 142061488 Problem Neuropathy G62.9 Active 017073912 Problem Depression F32.9 Active 00785166 Problem Chronic fatigue R53.82 Active 95452825 Problem Chronic fatigue, unspecified R53.82 Active 47683469 Problem Heartburn R12 Active 48243686 Problem Memory change R41.3 Active 630395698 Problem Idiopathic neuropathy G60.9 Active 68537849 Problem Pain in right shoulder M25.511 Active 22111654 Problem Systemic involvement of connective tissue, unspecified M35.9 Active 948568158 ALLERGIES Substance Reaction Event Type Date Status Neurontin Unknown Drug Allergy Aug, Active Lyrica Nausea, diarrhea, headaches Drug Allergy Aug, Active Effexor Unknown Drug Allergy Aug, Active Cymbalta 30 Mg Capsule, Delayed Release(e.c.) Unknown Non Drug Allergy Aug, Active SOCIAL HISTORY Never Assessed PLAN OF CARE Activity Details Follow Up prn Reason: VITAL SIGNS Height 68 in 2016-08-20 Weight 362 lbs 2016-08-20 Temperature 97 degrees Fahrenheit 2016-08-20 Heart Rate 86 bpm 2016-08-20 Respiratory Rate 18 2016-08-20 BMI 55.04 kg/m2 2016-08-20 Blood pressure systolic 132 mmHg 2016-08-20 Blood pressure diastolic 76 mmHg 2016-08-20 MEDICATIONS Medication Instructions Dosage Frequency Start Date End Date Duration Status Cholecalciferol 59586 UNIT Orally once weekly for 8 weeks once completed start 5,000 units OTC daily 1 tablet Jul, Active Cyclobenzaprine HCl 10 mg Orally Three times a day 1 tablet 8h 30 Active Omeprazole 40 MG Orally Once a day 1 capsule 24h Active Ciprodex 0.3-0.1 % Otic Twice a day 4 drops into right ear 12h Aug, 10 days Active Cetirizine HCl 10 MG Orally Once a day 1 tablet 24h Active Wheelchair - xtra large Jul, Active Hydrocodone-Acetaminophen Active Carbamazepine 200 MG Orally Twice a day 1 tablet 12h Active Fluticasone Propionate 50 MCG/ACT Nasally Once a day 1 spray in each nostril 24h Sep, Active RESULTS No Results PROCEDURES No Known [...]
--- OUTSIDE RECORDS SUMMARY | 2017-04-16 10:22 | XMS REPORT ---
Author Author MILIND CHU [facility] Address [address] [place] [address] Care Team Providers Care Nursery School Attendant Name Role Phone MILIND CHU Unavailable PROBLEMS Type Condition ICD9-CM Code IWS52-IE Code Onset Dates Condition Status SNOMED Code Problem Pain in right knee M25.561 Active 95455775 Problem Unspecified nonsuppurative otitis media, right ear H65.91 Active 65429585 Problem Other chronic pain G89.29 Active 91719472 Problem Insomnia due to medical condition G47.01 Active 896192262 Problem Long-term use of high-risk medication Z79.899 Active 182881456 Problem Bad odor of urine R82.90 Active 305259577730138 Problem Tinnitus of right ear H93.11 Active 14113352 Problem Vitamin D deficiency E55.9 Active 52263357 Problem Pre-diabetes R73.03 Active 991143855 Problem Morbid obesity due to excess calories E66.01 Active 279833238 Problem SI (sacroiliac) pain M53.3 Active 078507276 Problem Neuropathy G62.9 Active 039697037 Problem Depression F32.9 Active 16994818 Problem Chronic fatigue R53.82 Active 61487463 Problem Chronic fatigue, unspecified R53.82 Active 05660718 Problem Heartburn R12 Active 33183145 Problem Memory change R41.3 Active 086492672 Problem Idiopathic neuropathy G60.9 Active 77691782 Problem Fibromyalgia M79.7 Active 34139232 Problem Pain in right shoulder M25.511 Active 97020901 Problem Arthritis of both knees M19.90 Active 939144119 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 77529793 Problem Systemic involvement of connective tissue, unspecified M35.9 Active 942567180 Problem Pain in left knee M25.562 Active 64902913 ALLERGIES Substance Reaction Event Type Date Status Neurontin Unknown Drug Allergy Jul, Active Lyrica Nausea, diarrhea, headaches Drug Allergy Jul, Active Effexor Unknown Drug Allergy Jul, Active Cymbalta 30 Mg Capsule, Delayed Release(e.c.) Unknown Non Drug Allergy Jul, Active SOCIAL HISTORY No smoking Hx information available PLAN OF CARE Activity Details Follow Up 3 Months, prn Reason:pain/fibromyalgia VITAL SIGNS Height 68 in 2016-07-19 Weight 365 lbs 2016-07-19 Temperature 98.4 degrees Fahrenheit 2016-07-19 Heart Rate 90 bpm 2016-07-19 Respiratory Rate 20 2016-07-19 BMI 55.49 kg/m2 2016-07-19 Blood pressure systolic 128 mmHg 2016-07-19 Blood pressure diastolic 88 mmHg 2016-07-19 MEDICATIONS Medication Instructions Dosage Frequency Start Date End Date Duration Status Wheelchair - xtra large Jul, Active Cyclobenzaprine HCl 10 mg Orally Three times a day 1 tablet 8h 30 Active Hydrocodone-Acetaminophen 7.5-325 MG Orally 2 times a day 1/2-1 tablet 12h 16 Aug, 2016 28 days Active Omeprazole 40 MG Orally Once a day 1 capsule 24h Active Carbamazepine 200 MG Orally Twice a day 1 tablet 12h Active Fluticasone Propionate 50 MCG/ACT Nasally Once a day 1 spray in each nostril 24h Sep, Active Cetirizine HCl 10 MG Orally Once a day 1 tablet 24h Active RESULTS No Results PROCEDURES Procedure Date Ordered Related Diagnosis Body Site LAB NOT BILLED BY [facility] Jul 19, 2016 Office Visit, Est Pt., Level 5 Jul 19, 2016 VENIPUNCT, ROUTINE* Jul 19, 2016 IMMUNIZATIONS No Known Immunizations
--- OUTSIDE RECORDS SUMMARY | 2017-04-16 10:22 | XMS REPORT ---
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
--- OUTSIDE RECORDS SUMMARY | 2017-04-16 10:22 | XMS REPORT ---
Author Author MILIND CHU [facility] Address [address] [place] [address] Care Team Providers Care Marine Engineering Consultant Name Role Phone MILIND CHU Unavailable PROBLEMS Type Condition ICD9-CM Code SIJ33-RY Code Onset Dates Condition Status SNOMED Code Problem Pain in left knee M25.562 Active 88991369 Problem Other chronic pain G89.29 Active 05069765 Problem Pain in right knee M25.561 Active 38481641 Problem Insomnia due to medical condition G47.01 Active 354153634 Problem Tinnitus of right ear H93.11 Active 99176147 Problem Bad odor of urine R82.90 Active 622468872297968 Problem Vitamin D deficiency E55.9 Active 02694861 Problem Fibromyalgia M79.7 Active 29183081 Problem Morbid obesity due to excess calories E66.01 Active 489595645 Problem Unspecified nonsuppurative otitis media, right ear H65.91 Active 47735632 Problem SI (sacroiliac) pain M53.3 Active 525754042 Problem Pre-diabetes R73.03 Active 302454966 Problem Long-term use of high-risk medication Z79.899 Active 446234724 Problem Depression F32.9 Active 32480741 Problem Chronic fatigue, unspecified R53.82 Active 36019606 Problem Heartburn R12 Active 38099634 Problem Systemic involvement of connective tissue, unspecified M35.9 Active 431885695 Problem Memory change R41.3 Active 716493444 Problem Chronic fatigue R53.82 Active 84153105 Problem Idiopathic neuropathy G60.9 Active 43637674 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 13784349 Problem Pain in right shoulder M25.511 Active 72604412 Problem Arthritis of both knees M19.90 Active 274126818 ALLERGIES Substance Reaction Event Type Date Status Neurontin Unknown Drug Allergy May, Active Lyrica Nausea, diarrhea, headaches Drug Allergy May, Active Effexor Unknown Drug Allergy May, Active Cymbalta 30 Mg Capsule, Delayed Release(e.c.) Unknown Non Drug Allergy May, Active SOCIAL HISTORY No smoking Hx information available PLAN OF CARE Activity Details Follow Up 2 Months Reason: VITAL SIGNS Height 68 in 2016-05-31 Weight 362 lbs 2016-05-31 Temperature 98.0 degrees Fahrenheit 2016-05-31 Heart Rate 84 bpm 2016-05-31 Respiratory Rate 20 2016-05-31 BMI 55.04 kg/m2 2016-05-31 Blood pressure systolic 136 mmHg 2016-05-31 Blood pressure diastolic 80 mmHg 2016-05-31 MEDICATIONS Medication Instructions Dosage Frequency Start Date End Date Duration Status Carbamazepine 200 MG Orally Twice a day 1 tablet 12h Active Cyclobenzaprine HCl 10 mg Orally Three times a day 1 tablet 8h 30 Active Fluticasone Propionate 50 MCG/ACT Nasally Once a day 1 spray in each nostril 24h Sep, Active Hydrocodone-Acetaminophen 7.5-325 MG Orally every 6 hrs 1 tablet as needed 6h Active Omeprazole 40 MG Orally Once a day 1 capsule 24h Active Tramadol HCl 50 mg Orally every 6 hrs prn must last 30 days 1 tablet as needed Active RESULTS No Results PROCEDURES Procedure Date Ordered Related Diagnosis Body Site Office Visit, Est Pt., Level 4 May 31, 2016 IMMUNIZATIONS No Known Immunizations
--- OUTSIDE RECORDS SUMMARY | 2017-04-16 10:22 | XMS REPORT ---
Author Author MILIND CHU [facility] eClinicalWorks Address Unknown Phone Unavailable Care Team Providers Care Property Preservation Specialist Name Role Phone MILIND CHU CP Unavailable Allergies, Adverse Reactions, Alerts Substance Reaction Event Type Neurontin Info Not Available Drug Allergy Lyrica Nausea, diarrhea, headaches Drug Allergy Effexor Info Not Available Drug Allergy Cymbalta 30 Mg Capsule, Delayed Release(e.c.) Info Not Available Non Drug Allergy Problems Problem Type Condition Code Onset Dates Condition Status Problem Vitamin D deficiency E55.9 Active Problem Chronic fatigue, unspecified R53.82 Active Problem Tinnitus of right ear H93.11 Active Problem Memory change R41.3 Active Problem Pain in right shoulder M25.511 Active Problem Idiopathic neuropathy G60.9 Active Problem Long-term use of high-risk medication Z79.899 Active Problem Heartburn R12 Active Problem Chronic fatigue R53.82 Active Problem Depression F32.9 Active Assessment Idiopathic neuropathy G60.9 Active Assessment Fibromyalgia M79.7 Active Assessment Memory change R41.3 Active 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 [address]-85 50 MCG/ACT Nasally Once a day October 27, 2015 1 spray in each nostril Carbamazepine [facility] [address]-47 200 MG Orally Twice a day 1 tablet Cholecalciferol [facility] [address] UNIT Orally twice weekly Aug 03, 2015 1 tablet Omeprazole [facility] [address]-92 40 MG Orally Once a day 1 capsule Tramadol HCl [facility] [address]-56 50 mg Orally every 6 hrs prn must last 30 days 1 tablet as needed Cyclobenzaprine HCl [facility] [address]-18 10 mg Orally Three times a day 1 tablet Procedures Procedure Coding System Code Date Office Visit, Est Pt., Level 4 CPT-4 53271 May 17, 2016 Vital Signs Date/Time: May 17, 2016 Cardiac Monitoring Heart Rate 84 bpm Weight 360.8 lbs Height 68 in BMI 54.85 Index Blood Pressure Diastolic 80 mmHg Blood Pressure Systolic 124 mmHg Results No Known Results Summary Purpose eClinicalWorks Submission
--- OUTSIDE RECORDS SUMMARY | 2017-04-16 10:22 | XMS REPORT ---
Author Author MILIND CHU Organization eClinicalWorks Address Unknown Phone Unavailable Care Team Providers Care Chief Telephone Operator Name Role Phone MILIND CHU CP Unavailable [...] Instructions Start Date End Date Status Dosage Omeprazole [facility] [address]-67 40 mg Orally Once a day Jul 28, 2015 1 capsule Results No Known Results Summary Purpose eClinicalWorks Submission
--- OUTSIDE RECORDS SUMMARY | 2017-04-16 10:22 | XMS REPORT ---
Author Author MILIND CHU [facility] eClinicalWorks Address Unknown Phone Unavailable Care Team Providers Care Break And Load Operator Name Role Phone MILIND CHU CP Unavailable Allergies, Adverse Reactions, Alerts Substance Reaction Event Type Neurontin Info Not Available Drug Allergy Effexor Info Not Available Drug Allergy Cymbalta 30 Mg Capsule, Delayed Release(e.c.) Info Not Available Non Drug Allergy Problems Problem Type Condition ICD-9 Code Onset Dates Condition Status Problem Other and unspecified bipolar disorders 296.89 Active Problem Routine general medical examination at health care facility V70.0 Active Problem Bipolar I disorder, most recent episode (or current) mixed, moderate 296.62 Active Problem Unspecified sleep disturbance 780.50 Active Assessment Unspecified sleep disturbance 780.50 Active Problem Unspecified episodic mood disorder 296.90 Active Assessment Left ankle pain 719.47 Active Assessment Insomnia 780.52 Active Problem Anxiety state, unspecified 300.00 Active Problem Bipolar I disorder, most recent episode (or current) manic, moderate 296.42 Active Problem Unspecified alopecia 704.00 Active Problem Pain in joint, site unspecified 719.40 Active Problem Chondromalacia 733.92 Active Problem Disturbance of skin sensation 782.0 Active Problem Unspecified tinnitus 388.30 Active Assessment Unspecified hereditary and idiopathic peripheral neuropathy 356.9 Active Assessment Fibromyalgia 729.1 Active Problem Acute pharyngitis 462 Active Problem Unspecified hereditary and idiopathic peripheral neuropathy 356.9 Active Problem Candidiasis of skin and nails 112.3 Active Problem Anorexia 783.0 Active Problem Insomnia, unspecified 780.52 Active Problem Depressive disorder, not elsewhere classified 311 Active Medications Medication Code System Code Instructions Start Date End Date Status Dosage Vitamin D3 [facility] [address] 1,000 unit September 14, 2014 3 Tablet by Oral route 1 time per day total of 3,000 units daily sertraline NDC 0 100 mg Apr 12, 2014 1 tablet by Oral route 1 time per day Cyclobenzaprine HCl [facility] 98292977138 10 MG TAKE ONE TABLET BY MOUTH THREE TIMES DAILY Procedures Procedure Coding System Code Date Office Visit, Est Pt., Level 4 CPT-4 41649 Mar 22, 2015 Vital Signs Date/Time: Mar 22, 2015 Temperature 97.2 F Weight 312.3 lbs Height 68 in BMI 47.48 Index Blood Pressure Diastolic 88 mmHg Blood Pressure Systolic 138 mmHg Cardiac Monitoring Heart Rate 80 bpm Results No Known Results Summary Purpose eClinicalWorks Submission
--- OUTSIDE RECORDS SUMMARY | 2017-04-16 10:26 | XMS REPORT | Continuity of Care Document ---
Author Author [facility] Address Unknown Phone Unavailable Allergies Active Description Code Type Severity Reaction Onset Reported/Identified Relationship to Patient Clinical Status Yes meperidine [id number] Drug Allergy Mild SWELLING 12/12/2009 Yes Demerol Drug Allergy N/A N/A 12/24/2009 Yes Demerol Drug Allergy 12/24/2009 Yes naproxen Drug Allergy N/A N/A 01/04/2010 Yes naproxen Drug Allergy 01/04/2010 Yes Cymbalta 30 mg Capsule, Delayed Release(E.C.) Drug Allergy N/A N/A 10/01/2012 Yes Cymbalta 30 mg Capsule, Delayed Release(E.C.) Drug Allergy 10/01/2012 Yes Effexor Drug Allergy N/A N/A 07/09/2013 Yes Neurontin Drug Allergy N/A N/A 07/09/2013 Yes gabapentin [id number] Drug Allergy Unknown N/A 11/24/2015 Yes NAPROXYN NAPROXYN Unknown ABD PAIN AND VO 11/24/2015 Yes pregabalin [id number] Drug Allergy Unknown N/A 11/24/2015 Yes venlafaxine [id number] Drug Allergy Unknown N/A 11/24/2015 Yes naproxen [id number] Drug Allergy Unknown NAUSEA 01/12/2016 Medications Problems Date Dx Coded Attending Type Code Diagnosis Diagnosed By 12/12/2009 Ot 131.01 12/12/2009 Ot 614.9 12/12/2009 Ot 625.9 12/24/2009 GUZMAN FORD DO 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 12/24/2009 GUZMAN FORD DO 625.3 DYSMENORRHEA 12/24/2009 GUZMAN FORD DO 789.00 ABDOMINAL PAIN UNSPECIFIED SITE 12/24/2009 KIARA WILLAMS MD 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 12/24/2009 EASH KAMI MD, KIARA A 625.3 DYSMENORRHEA 12/24/2009 NOEMÍ MCCLURE MD, KIARA A 789.00 ABDOMINAL PAIN UNSPECIFIED SITE 12/24/2009 CARLEEN ACCOUNT SERVICE ASSOCIATE, KASSY S 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 12/24/2009 CARLEEN ACCOUNT SERVICE ASSOCIATE, KASSY S 625.3 DYSMENORRHEA 12/24/2009 CARLEEN ACCOUNT SERVICE ASSOCIATE, KASSY S 789.00 ABDOMINAL PAIN UNSPECIFIED SITE 12/24/2009 CARLEEN ACCOUNT SERVICE ASSOCIATE, KASSY S 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 12/24/2009 CARLEEN ACCOUNT SERVICE ASSOCIATE, KASSY S 625.3 DYSMENORRHEA 12/24/2009 CARLEEN ACCOUNT SERVICE ASSOCIATE, KASSY S 789.00 ABDOMINAL PAIN UNSPECIFIED SITE 12/24/2009 FORD DO, GUZMAN K 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 12/24/2009 FORD DO, GUZMAN K 625.3 DYSMENORRHEA 12/24/2009 FORD DO, GUZMAN K 789.00 ABDOMINAL PAIN UNSPECIFIED SITE 12/24/2009 RACIEL ACCOUNT SERVICE ASSOCIATE, EVANS R 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 12/24/2009 RAICEL ACCOUNT SERVICE ASSOCIATE, EVANS R 625.3 DYSMENORRHEA 12/24/2009 RACIEL ACCOUNT SERVICE ASSOCIATE, EVANS R 789.00 ABDOMINAL PAIN UNSPECIFIED SITE 12/24/2009 RODRIGUEZ CASHERO ACCOUNT SERVICE ASSOCIATE, ALICE N 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 12/24/2009 RODRIGUEZ CASHERO ACCOUNT SERVICE ASSOCIATE, ALICE N 625.3 DYSMENORRHEA 12/24/2009 RODRIGUEZ CASHERO ACCOUNT SERVICE ASSOCIATE, ALICE N 789.00 ABDOMINAL PAIN UNSPECIFIED SITE 12/24/2009 FORD DO, GUZMAN K 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 12/24/2009 FORD DO, GUZMAN K 625.3 DYSMENORRHEA 12/24/2009 FORD DO, GUZMAN K 789.00 ABDOMINAL PAIN UNSPECIFIED SITE 12/24/2009 CARLEEN ACCOUNT SERVICE ASSOCIATE, KASSY S 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 12/24/2009 CARLEEN ACCOUNT SERVICE ASSOCIATE, KASSY S 625.3 DYSMENORRHEA 12/24/2009 CARLEEN ACCOUNT SERVICE ASSOCIATE, KASSY S 789.00 ABDOMINAL PAIN UNSPECIFIED SITE 12/24/2009 RODRIGUEZ CASHALVAREZ LEE, ALICE N 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 12/24/2009 RODRIGUEZ JESSICAALVAREZ LEE, ALICE N 625.3 DYSMENORRHEA 12/24/2009 RODRIGUEZ CRISTY ACCOUNT SERVICE ASSOCIATE, ALICE N 789.00 ABDOMINAL PAIN UNSPECIFIED SITE 12/24/2009 RACIEL LEE, EVANS R 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 12/24/2009 RACIEL LEE, EVANS R 625.3 DYSMENORRHEA 12/24/2009 RACIEL LEE, EVANS R 789.00 ABDOMINAL PAIN UNSPECIFIED SITE 12/24/2009 FORD DO, GUZMAN K 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 12/24/2009 FORD DO, GUZMAN K 625.3 DYSMENORRHEA 12/24/2009 FORD DO, GUZMAN K 789.00 ABDOMINAL PAIN UNSPECIFIED SITE 12/24/2009 AR LEE, ORLY A 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 12/24/2009 AR LEE, ORLY A 625.3 DYSMENORRHEA 12/24/2009 KATHYE JESUS, ORLY A 789.00 ABDOMINAL PAIN UNSPECIFIED SITE 12/24/2009 RACIEL LEE, EVANS R 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 12/24/2009 RACIEL LEE, EVANS R 625.3 DYSMENORRHEA 12/24/2009 RACIEL LEE, EVANS R 789.00 ABDOMINAL PAIN UNSPECIFIED SITE 12/24/2009 TERRI MUNROE APRN 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 12/24/2009 TERRI MUNROE APRN 625.3 DYSMENORRHEA 12/24/2009 TERRI MUNROE APRN 789.00 ABDOMINAL PAIN UNSPECIFIED SITE 12/24/2009 DEANNE AVILAF, KENYETTA Hernandez 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 12/24/2009 DEANNE AVIALF, KENYETTA W 625.3 DYSMENORRHEA 12/24/2009 DEANNE AVILAF, KENYETTA W 789.00 ABDOMINAL PAIN UNSPECIFIED SITE 12/24/2009 MILIND CHU APRN L 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 12/24/2009 MADL ACCOUNT SERVICE ASSOCIATE, MILIND L 625.3 DYSMENORRHEA 12/24/2009 MADL ACCOUNT SERVICE ASSOCIATE, MILIND L 789.00 ABDOMINAL PAIN UNSPECIFIED SITE 12/24/2009 DEANNE LCMF, KENYETTA W 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 12/24/2009 DEANNE LCMF, KENYETTA W 625.3 DYSMENORRHEA 12/24/2009 DEANNE AICHAMF, KENYETTA W 789.00 ABDOMINAL PAIN UNSPECIFIED SITE 12/24/2009 CINTHIA PORCELAIN ENAMEL REPAIRER, DIANE M 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 12/24/2009 CINTHIA PORCELAIN ENAMEL REPAIRER, DIANE M 625.3 DYSMENORRHEA 12/24/2009 CINTHIA PORCELAIN ENAMEL REPAIRER, DIANE M 789.00 ABDOMINAL PAIN UNSPECIFIED SITE 01/04/2010 LOGAN DO, GUZMAN K V72.31 AGRONOMY SUPERVISOR EXAM, ROUTINE 01/04/2010 NOEMÍ MCCLURE MD, KIARA A V72.31 AGRONOMY SUPERVISOR EXAM, ROUTINE 01/04/2010 CARLEEN LEE, KASSY S V72.31 AGRONOMY SUPERVISOR EXAM, ROUTINE 01/04/2010 ROXANE DURANT APRNNDA S V72.31 AGRONOMY SUPERVISOR EXAM, ROUTINE 01/04/2010 FORD DO, GUZMAN K V72.31 AGRONOMY SUPERVISOR EXAM, ROUTINE 01/04/2010 RACIEL LEE EVANS R V72.31 AGRONOMY SUPERVISOR EXAM, ROUTINE 01/04/2010 MICHAEL MUNIZ ACCOUNT SERVICE ASSOCIATEOMKAR BillCY N V72.31 AGRONOMY SUPERVISOR EXAM, ROUTINE 01/04/2010 FORD DO, GUZMAN K V72.31 AGRONOMY SUPERVISOR EXAM, ROUTINE 01/04/2010 CARLEEN ACCOUNT SERVICE ASSOCIATE, KASSY S V72.31 AGRONOMY SUPERVISOR EXAM, ROUTINE 01/04/2010 MICHAEL MUNIZ ACCOUNT SERVICE ASSOCIATE ALICE N V72.31 AGRONOMY SUPERVISOR EXAM, ROUTINE 01/04/2010 RACIEL ACCOUNT SERVICE ASSOCIATE, EVANS R V72.31 AGRONOMY SUPERVISOR EXAM, ROUTINE 01/04/2010 FORD DO, GUZMAN K V72.31 AGRONOMY SUPERVISOR EXAM, ROUTINE 01/04/2010 ORLY JOYNER APRN A V72.31 AGRONOMY SUPERVISOR EXAM, ROUTINE 01/04/2010 RACIEL ACCOUNT SERVICE ASSOCIATE, EVANS R V72.31 AGRONOMY SUPERVISOR EXAM, ROUTINE 01/04/2010 TERRI MUNROE APRN V72.31 AGRONOMY SUPERVISOR EXAM, ROUTINE 01/04/2010 DEANNE HOLCOMBMF, KENYETTA W V72.31 AGRONOMY SUPERVISOR EXAM, ROUTINE 01/04/2010 VLAD ACCOUNT SERVICE ASSOCIATE, MILIND Andre V72.31 AGRONOMY SUPERVISOR EXAM, ROUTINE 01/04/2010 DEANNE HOLCOMBMF, KENYETTA W V72.31 AGRONOMY SUPERVISOR EXAM, ROUTINE 01/04/2010 CINTHIA JONATHON, DIANE Pham V72.31 AGRONOMY SUPERVISOR EXAM, ROUTINE 01/09/2010 FORD DO, GUZMAN K 278.00 OBESITY, UNSPECIFIED 01/09/2010 FORD DO, GUZMAN K 782.3 Edema 01/09/2010 FORD DO, GUZMAN K 783.5 POLYDIPSIA 01/09/2010 FORD DO, GUZMAN K 788.42 POLYURIA 01/09/2010 NOEMÍ MCCLURE MD, KIARA A 278.00 OBESITY, UNSPECIFIED 01/09/2010 NOEMÍ MCCLURE MD, KIARA A 782.3 Edema 01/09/2010 NOEMÍ MCCLURE MD, KIARA A 783.5 POLYDIPSIA 01/09/2010 NOEMÍ MCCLURE MD, KIARA A 788.42 POLYURIA 01/09/2010 CARLEEN ACCOUNT SERVICE ASSOCIATE, KASSY S 278.00 OBESITY, UNSPECIFIED 01/09/2010 CARLEEN ACCOUNT SERVICE ASSOCIATE, KASSY S 782.3 Edema 01/09/2010 CARLEEN ACCOUNT SERVICE ASSOCIATE, KASSY S 783.5 POLYDIPSIA 01/09/2010 CARLEEN ACCOUNT SERVICE ASSOCIATE, KASSY S 788.42 POLYURIA 01/09/2010 CARLEEN ACCOUNT SERVICE ASSOCIATE, KASSY S 278.00 OBESITY, UNSPECIFIED 01/09/2010 CARLEEN ACCOUNT SERVICE ASSOCIATE, KASSY S 782.3 Edema 01/09/2010 CARLEEN ACCOUNT SERVICE ASSOCIATE, KASSY S 783.5 POLYDIPSIA 01/09/2010 CARLEEN ACCOUNT SERVICE ASSOCIATE, KASSY S 788.42 POLYURIA 01/09/2010 FORD DO, GUZMAN K 278.00 OBESITY, UNSPECIFIED 01/09/2010 FORD DO, GUZMAN K 782.3 Edema 01/09/2010 FORD DO, GUZMAN K 783.5 POLYDIPSIA 01/09/2010 FORD DO, GUZMAN K 788.42 POLYURIA 01/09/2010 EVANS SCHRADER APRN R 278.00 OBESITY, UNSPECIFIED 01/09/2010 RACIEL LEE EVANS R 782.3 Edema 01/09/2010 RACIEL ACCOUNT SERVICE ASSOCIATE, EVANS R 783.5 POLYDIPSIA 01/09/2010 RACIEL ACCOUNT SERVICE ASSOCIATE, EVANS R 788.42 POLYURIA 01/09/2010 MICHAEL MUNIZ APRN, ALICE N 278.00 OBESITY, UNSPECIFIED 01/09/2010 MICHAEL MUNIZ ACCOUNT SERVICE ASSOCIATE, ALICE N 782.3 Edema 01/09/2010 MICHAEL MUNIZ ACCOUNT SERVICE ASSOCIATE, ALICE N 783.5 POLYDIPSIA 01/09/2010 MICHAEL MUNIZ APRN, ALICE N 788.42 POLYURIA 01/09/2010 FORD DO, GUZMAN K 278.00 OBESITY, UNSPECIFIED 01/09/2010 FORD DO, GUZMAN K 782.3 Edema 01/09/2010 FORD DO, GUZMAN K 783.5 POLYDIPSIA 01/09/2010 FORD DO, GUZMAN K 788.42 POLYURIA 01/09/2010 CARLEEN ACCOUNT SERVICE ASSOCIATE, KASSY S 278.00 OBESITY, UNSPECIFIED 01/09/2010 CARLEEN ACCOUNT SERVICE ASSOCIATE, KASSY S 782.3 Edema 01/09/2010 CARLEEN ACCOUNT SERVICE ASSOCIATE, KASSY S 783.5 POLYDIPSIA 01/09/2010 CARLEEN ACCOUNT SERVICE ASSOCIATE, KASSY S 788.42 POLYURIA 01/09/2010 RODRIGUEZKARTIK MUNIZ APRN, ALICE N 278.00 OBESITY, UNSPECIFIED 01/09/2010 RODRIGUEZKARTIK MUNIZ APRN, ALICE N 782.3 Edema 01/09/2010 MICHAEL MUNIZ APRN, ALICE N 783.5 POLYDIPSIA 01/09/2010 RODRIGUEZKARTIK MUNIZ APRN, ALICE N 788.42 POLYURIA 01/09/2010 RACIEL ACCOUNT SERVICE ASSOCIATE, EVANS R 278.00 OBESITY, UNSPECIFIED 01/09/2010 RACIEL ACCOUNT SERVICE ASSOCIATE, EVANS R 782.3 Edema 01/09/2010 RACIEL ACCOUNT SERVICE ASSOCIATE, EVANS R 783.5 POLYDIPSIA 01/09/2010 RACIEL ACCOUNT SERVICE ASSOCIATE, EVANS R 788.42 POLYURIA 01/09/2010 FORD DO, GUZMAN K 278.00 OBESITY, UNSPECIFIED 01/09/2010 FORD DO, GUZMAN K 782.3 Edema 01/09/2010 FORD DO, GUZMAN K 783.5 POLYDIPSIA 01/09/2010 FORD DO, GUZMAN K 788.42 POLYURIA 01/09/2010 RAJOTTE ACCOUNT SERVICE ASSOCIATE, ORLY A 278.00 OBESITY, UNSPECIFIED 01/09/2010 RAJOTTE ACCOUNT SERVICE ASSOCIATE, ORLY A 782.3 Edema 01/09/2010 RAJOTTE ACCOUNT SERVICE ASSOCIATE, ORLY A 783.5 POLYDIPSIA 01/09/2010 RAJOTTE ACCOUNT SERVICE ASSOCIATE, ORLY A 788.42 POLYURIA 01/09/2010 RACIEL ACCOUNT SERVICE ASSOCIATE, EVANS R 278.00 OBESITY, UNSPECIFIED 01/09/2010 RACIEL ACCOUNT SERVICE ASSOCIATE, EVANS R 782.3 Edema 01/09/2010 RACIEL ACCOUNT SERVICE ASSOCIATE, EVANS R 783.5 POLYDIPSIA 01/09/2010 RACIEL ACCOUNT SERVICE ASSOCIATE, EVANS R 788.42 POLYURIA 01/09/2010 MUNROE ACCOUNT SERVICE ASSOCIATE, TERRI D 278.00 OBESITY, UNSPECIFIED 01/09/2010 MUNROE ACCOUNT SERVICE ASSOCIATE, TERRI D 782.3 Edema 01/09/2010 MUNROE ACCOUNT SERVICE ASSOCIATE, TERRI D 783.5 POLYDIPSIA 01/09/2010 MUNROE ACCOUNT SERVICE ASSOCIATE, TERRI D 788.42 POLYURIA 01/09/2010 DEANNE LCMF, KENYETTA W 278.00 OBESITY, UNSPECIFIED 01/09/2010 DEANNE LCMF, KENYETTA W 782.3 Edema 01/09/2010 DEANNE LCMF, KENYETTA W 783.5 POLYDIPSIA 01/09/2010 DEANNE LCMF, KENYETTA W 788.42 POLYURIA 01/09/2010 MADL ACCOUNT SERVICE ASSOCIATE, MILIND L 278.00 OBESITY, UNSPECIFIED 01/09/2010 MADL ACCOUNT SERVICE ASSOCIATE, MILIND L 782.3 Edema 01/09/2010 MADL ACCOUNT SERVICE ASSOCIATE, MILIND L 783.5 POLYDIPSIA 01/09/2010 MADL ACCOUNT SERVICE ASSOCIATE, MILIND L 788.42 POLYURIA 01/09/2010 DEANNE LCMF, KENYETTA W 278.00 OBESITY, UNSPECIFIED 01/09/2010 DEANNE LCMF, KENYETTA W 782.3 Edema 01/09/2010 DEANNE LCMF, KENYETTA W 783.5 POLYDIPSIA 01/09/2010 DEANNE LCMF, KENYETTA W 788.42 POLYURIA 01/09/2010 DIANE ANGELA 278.00 OBESITY, UNSPECIFIED 01/09/2010 CINTHIA PORCELAIN ENAMEL REPAIRER, DIANE M 782.3 Edema 01/09/2010 CINTHIA PORCELAIN ENAMEL REPAIRER, DIANE M 783.5 POLYDIPSIA 01/09/2010 CINTHIA PORCELAIN ENAMEL REPAIRER, DIANE M 788.42 POLYURIA 01/12/2010 FORD DO, GUZMAN K 268.9 VITAMIN D DEFICIENCY 01/12/2010 FORD DO, GUZMAN K 285.9 ANEMIA UNSPECIFIED 01/12/2010 NOEMÍ MCCLURE MD, KIARA A 268.9 VITAMIN D DEFICIENCY 01/12/2010 NOEMÍ MCCLURE MD, KIRAA A 285.9 ANEMIA UNSPECIFIED 01/12/2010 CARLEEN ACCOUNT SERVICE ASSOCIATE, KASSY S 268.9 VITAMIN D DEFICIENCY 01/12/2010 CARLEEN ACCOUNT SERVICE ASSOCIATE, KASSY S 285.9 ANEMIA UNSPECIFIED 01/12/2010 CARLEEN ACCOUNT SERVICE ASSOCIATE, KASSY S 268.9 VITAMIN D DEFICIENCY 01/12/2010 CARLEEN ACCOUNT SERVICE ASSOCIATE, KASSY S 285.9 ANEMIA UNSPECIFIED 01/12/2010 FORD DO, GUZMAN K 268.9 VITAMIN D DEFICIENCY 01/12/2010 FORD DO, GUZMAN K 285.9 ANEMIA UNSPECIFIED 01/12/2010 RACIEL ACCOUNT SERVICE ASSOCIATE, EVANS R 268.9 VITAMIN D DEFICIENCY 01/12/2010 RACIEL ACCOUNT SERVICE ASSOCIATE, EVANS R 285.9 ANEMIA UNSPECIFIED 01/12/2010 MICHAEL CASHERO ACCOUNT SERVICE ASSOCIATE, ALICE N 268.9 VITAMIN D DEFICIENCY 01/12/2010 RODRIGUEZ CASHERO ACCOUNT SERVICE ASSOCIATE, ALICE N 285.9 ANEMIA UNSPECIFIED 01/12/2010 FORD DO, GUZMAN K 268.9 VITAMIN D DEFICIENCY 01/12/2010 FORD DO, GUZMAN K 285.9 ANEMIA UNSPECIFIED 01/12/2010 CARLEEN ACCOUNT SERVICE ASSOCIATE, KASSY S 268.9 VITAMIN D DEFICIENCY 01/12/2010 CARLEEN ACCOUNT SERVICE ASSOCIATE, KASSY S 285.9 ANEMIA UNSPECIFIED 01/12/2010 RODRIGUEZ CASHERO ACCOUNT SERVICE ASSOCIATE, ALICE N 268.9 VITAMIN D DEFICIENCY 01/12/2010 RODRIGUEZ CASHERO ACCOUNT SERVICE ASSOCIATE, ALICE N 285.9 ANEMIA UNSPECIFIED 01/12/2010 RACIEL ACCOUNT SERVICE ASSOCIATE, EVANS R 268.9 VITAMIN D DEFICIENCY 01/12/2010 RACIEL ACCOUNT SERVICE ASSOCIATE, EVANS R 285.9 ANEMIA UNSPECIFIED 01/12/2010 FORD DO, GUZMAN K 268.9 VITAMIN D DEFICIENCY 01/12/2010 FORD DO, GUZMAN K 285.9 ANEMIA UNSPECIFIED 01/12/2010 RAJOTTE ACCOUNT SERVICE ASSOCIATE, ORLY A 268.9 VITAMIN D DEFICIENCY 01/12/2010 RAJOTTE ACCOUNT SERVICE ASSOCIATE, ORLY A 285.9 ANEMIA UNSPECIFIED 01/12/2010 RACIEL ACCOUNT SERVICE ASSOCIATE, EVANS R 268.9 VITAMIN D DEFICIENCY 01/12/2010 RACIEL ACCOUNT SERVICE ASSOCIATE, EVANS R 285.9 ANEMIA UNSPECIFIED 01/12/2010 MUNROE ACCOUNT SERVICE ASSOCIATE, TERRI D 268.9 VITAMIN D DEFICIENCY 01/12/2010 MUNROE ACCOUNT SERVICE ASSOCIATE, TERRI D 285.9 ANEMIA UNSPECIFIED 01/12/2010 DEANNE LCMF, KENYETTA W 268.9 VITAMIN D DEFICIENCY 01/12/2010 DEANNE LCMF, KENYETTA W 285.9 ANEMIA UNSPECIFIED 01/12/2010 MADL ACCOUNT SERVICE ASSOCIATE, MILIND L 268.9 VITAMIN D DEFICIENCY 01/12/2010 MADL ACCOUNT SERVICE ASSOCIATE, MILIND L 285.9 ANEMIA UNSPECIFIED 01/12/2010 DEANNE LCMF, KENYETTA W 268.9 VITAMIN D DEFICIENCY 01/12/2010 DEANNE LCMF, KENYETTA W 285.9 ANEMIA UNSPECIFIED 01/12/2010 CINTHIA PORCELAIN ENAMEL REPAIRER, DIANE M 268.9 VITAMIN D DEFICIENCY 01/12/2010 CINTHIA PORCELAIN ENAMEL REPAIRER, DIANE M 285.9 ANEMIA UNSPECIFIED 01/31/2010 FORD DO, GUZMAN K 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 01/31/2010 FORD DO, GUZMAN K 626.4 IRREGULAR MENSTRUAL CYCLE 01/31/2010 FORD DO, GUZMAN K 780.8 GENERALIZED HYPERHIDROSIS 01/31/2010 KIARA WILLAMS MD A 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 01/31/2010 KIARA WILLAMS MD A 626.4 IRREGULAR MENSTRUAL CYCLE 01/31/2010 KIARA WILLAMS MD A 780.8 GENERALIZED HYPERHIDROSIS 01/31/2010 KASSY DURANT APRN S 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 01/31/2010 KASSY DURANT APRN S 626.4 IRREGULAR MENSTRUAL CYCLE 01/31/2010 KASSY DURANT APRN S 780.8 GENERALIZED HYPERHIDROSIS 01/31/2010 KASSY DURANT APRN S 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 01/31/2010 CARLEEN LEE KASSY S 626.4 IRREGULAR MENSTRUAL CYCLE 01/31/2010 CARLEEN LEE KASSY S 780.8 GENERALIZED HYPERHIDROSIS 01/31/2010 FORD DO, GUZMAN K 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 01/31/2010 FORD DO, GUZMAN K 626.4 IRREGULAR MENSTRUAL CYCLE 01/31/2010 FORD DO, GUZMAN K 780.8 GENERALIZED HYPERHIDROSIS 01/31/2010 RACIEL ACCOUNT SERVICE ASSOCIATE, EVANS R 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 01/31/2010 RACIEL ACCOUNT SERVICE ASSOCIATE, EVANS R 626.4 IRREGULAR MENSTRUAL CYCLE 01/31/2010 RACIEL ACCOUNT SERVICE ASSOCIATE, EVANS R 780.8 GENERALIZED HYPERHIDROSIS 01/31/2010 MICHAEL MUNIZ APRN ALICE N 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 01/31/2010 OMKAR MARTINS APRNCY N 626.4 IRREGULAR MENSTRUAL CYCLE 01/31/2010 OMKAR MARTINS APRNCY N 780.8 GENERALIZED HYPERHIDROSIS 01/31/2010 FORD DO, GUZMAN K 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 01/31/2010 FORD DO, GUZMAN K 626.4 IRREGULAR MENSTRUAL CYCLE 01/31/2010 FORD DO, GUZMAN K 780.8 GENERALIZED HYPERHIDROSIS 01/31/2010 CARLEEN LEE KASSY S 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 01/31/2010 CARLEEN LEE KASSY S 626.4 IRREGULAR MENSTRUAL CYCLE 01/31/2010 CARLEEN LEE KASSY S 780.8 GENERALIZED HYPERHIDROSIS 01/31/2010 OMKAR MARTINS APRNCY N 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 01/31/2010 RODRIGUEZ CASHALVAREZ LEE ALICE N 626.4 IRREGULAR MENSTRUAL CYCLE 01/31/2010 RODRIGUEZ CASHERO ACCOUNT SERVICE ASSOCIATE, ALICE N 780.8 GENERALIZED HYPERHIDROSIS 01/31/2010 RACIEL ACCOUNT SERVICE ASSOCIATE, EVANS R 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 01/31/2010 RACIEL ACCOUNT SERVICE ASSOCIATE, EVANS R 626.4 IRREGULAR MENSTRUAL CYCLE 01/31/2010 RACIEL ACCOUNT SERVICE ASSOCIATE, EVANS R 780.8 GENERALIZED HYPERHIDROSIS 01/31/2010 FORD DO GUZMAN K 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 01/31/2010 FORD DO, GUZMAN K 626.4 IRREGULAR MENSTRUAL CYCLE 01/31/2010 FORD DO, GUZMAN K 780.8 GENERALIZED HYPERHIDROSIS 01/31/2010 KATHYE ACCOUNT SERVICE ASSOCIATE, ORLY A 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 01/31/2010 RAJOTTE ACCOUNT SERVICE ASSOCIATE, ORLY A 626.4 IRREGULAR MENSTRUAL CYCLE 01/31/2010 RAJOTTE ACCOUNT SERVICE ASSOCIATE, ORLY A 780.8 GENERALIZED HYPERHIDROSIS 01/31/2010 RACIEL ACCOUNT SERVICE ASSOCIATE, EVANS R 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 01/31/2010 RACIEL ACCOUNT SERVICE ASSOCIATE, EVANS R 626.4 IRREGULAR MENSTRUAL CYCLE 01/31/2010 RACIEL ACCOUNT SERVICE ASSOCIATE, EVANS R 780.8 GENERALIZED HYPERHIDROSIS 01/31/2010 TERRI MUNROE APRN 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 01/31/2010 TERRI MUNROE APRN 626.4 IRREGULAR MENSTRUAL CYCLE 01/31/2010 TERRI MUNROE APRN 780.8 GENERALIZED HYPERHIDROSIS 01/31/2010 DEANNE AICHAMF, KENYETTA W 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 01/31/2010 DEANNE LCMF, KENYETTA W 626.4 IRREGULAR MENSTRUAL CYCLE 01/31/2010 DEANNE AICHAMF, KENYETTA W 780.8 GENERALIZED HYPERHIDROSIS 01/31/2010 VLAD LEE, MILIND L 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 01/31/2010 MADL JESUS, MILIND L 626.4 IRREGULAR MENSTRUAL CYCLE 01/31/2010 MADL ACCOUNT SERVICE ASSOCIATE, MILIND L 780.8 GENERALIZED HYPERHIDROSIS 01/31/2010 DEANNE LCMF, KENYETTA W 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 01/31/2010 DEANNE LCMF, KENYETTA W 626.4 IRREGULAR MENSTRUAL CYCLE 01/31/2010 DEANNE LCMF, KENYETTA W 780.8 GENERALIZED HYPERHIDROSIS 01/31/2010 DIANE ANGELA 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 01/31/2010 DIANE ANGELA 626.4 IRREGULAR MENSTRUAL CYCLE 01/31/2010 DIANE ANGELA 780.8 GENERALIZED HYPERHIDROSIS 02/08/2010 FORD DOADAMA K 780.79 MALAISE AND FATIGUE 02/08/2010 FORD DO GUZMAN K 787.02 NAUSEA ALONE 02/08/2010 NOEMÍ MCCLURE MD, KIARA A 780.79 MALAISE AND FATIGUE 02/08/2010 NOEMÍ MCCLURE MD, KIARA A 787.02 NAUSEA ALONE 02/08/2010 CARLEEN LEE KASSY S 780.79 MALAISE AND FATIGUE 02/08/2010 CARLEEN ACCOUNT SERVICE ASSOCIATE, KASSY S 787.02 NAUSEA ALONE 02/08/2010 CARLEEN LEE KASSY S 780.79 MALAISE AND FATIGUE 02/08/2010 CARLEEN LEE, KASSY S 787.02 NAUSEA ALONE 02/08/2010 FORD DO GUZMAN K 780.79 MALAISE AND FATIGUE 02/08/2010 FORD DO GUZMAN K 787.02 NAUSEA ALONE 02/08/2010 RACIEL LEE EVANS R 780.79 MALAISE AND FATIGUE 02/08/2010 RACIEL LEE EVANS R 787.02 NAUSEA ALONE 02/08/2010 MICHAEL MUNIZ APRN ALICE N 780.79 MALAISE AND FATIGUE 02/08/2010 OMKAR MARTINS APRNCY N 787.02 NAUSEA ALONE 02/08/2010 FORD DO GUZMAN K 780.79 MALAISE AND FATIGUE 02/08/2010 FORD DO GUZMAN K 787.02 NAUSEA ALONE 02/08/2010 CARLEEN LEE KASSY S 780.79 MALAISE AND FATIGUE 02/08/2010 CARLEEN LEE KASSY S 787.02 NAUSEA ALONE 02/08/2010 MICHAEL MUNIZ APRN ALICE N 780.79 MALAISE AND FATIGUE 02/08/2010 MICHAEL MUNIZ APRN ALICE N 787.02 NAUSEA ALONE 02/08/2010 RACIEL LEE EVANS R 780.79 MALAISE AND FATIGUE 02/08/2010 RACIEL LEE EVANS R 787.02 NAUSEA ALONE 02/08/2010 FORD DO, GUZMAN K 780.79 MALAISE AND FATIGUE 02/08/2010 FORD DO, GUZMAN K 787.02 NAUSEA ALONE 02/08/2010 AR LEE ORLY A 780.79 MALAISE AND FATIGUE 02/08/2010 AR ELE ORLY A 787.02 NAUSEA ALONE 02/08/2010 RACIEL ACCOUNT SERVICE ASSOCIATE, EVANS R 780.79 MALAISE AND FATIGUE 02/08/2010 RACIEL SARMIENTON, EVANS R 787.02 NAUSEA ALONE 02/08/2010 TERRI MUNROE APRN 780.79 MALAISE AND FATIGUE 02/08/2010 TERRI MUNROE APRN 787.02 NAUSEA ALONE 02/08/2010 DEANNE AVILAF, KENYETTA Hernandez 780.79 MALAISE AND FATIGUE 02/08/2010 DEANNE LCMF, KENYETTA Hernandez 787.02 NAUSEA ALONE 02/08/2010 MADL ACCOUNT SERVICE ASSOCIATE, MILIND Andre 780.79 MALAISE AND FATIGUE 02/08/2010 MADL ACCOUNT SERVICE ASSOCIATE, MILIND L 787.02 NAUSEA ALONE 02/08/2010 DEANNE HOLCOMBMF, KENYETTA Hernandez 780.79 MALAISE AND FATIGUE 02/08/2010 DEANNE LCMF, KENYETTA Hernandez 787.02 NAUSEA ALONE 02/08/2010 DIANE ANGELA 780.79 MALAISE AND FATIGUE 02/08/2010 DIANE ANGELA 787.02 NAUSEA ALONE 05/21/2010 Ot 614.9 05/21/2010 Ot 625.9 05/21/2010 Ot 626.8 10/27/2010 LOGAN DO, GUZMAN K 466.0 ACUTE BRONCHITIS 10/27/2010 NOEMÍ MCCLURE MD, KIARA A 466.0 ACUTE BRONCHITIS 10/27/2010 CARLEEN LEE, KASSY S 466.0 ACUTE BRONCHITIS 10/27/2010 CARLEEN LEE, KASSY S 466.0 ACUTE BRONCHITIS 10/27/2010 FORD DO GUZMAN K 466.0 ACUTE BRONCHITIS 10/27/2010 RACIEL SARMIENTON, EVANS R 466.0 ACUTE BRONCHITIS 10/27/2010 MICHAEL MUNIZ ACCOUNT SERVICE ASSOCIATE, ALICE N 466.0 ACUTE BRONCHITIS 10/27/2010 FORD DO GUZMAN K 466.0 ACUTE BRONCHITIS 10/27/2010 CARLEEN LEE, KASSY S 466.0 ACUTE BRONCHITIS 10/27/2010 MICHAEL LOPEZERO ACCOUNT SERVICE ASSOCIATE, ALICE N 466.0 ACUTE BRONCHITIS 10/27/2010 RACIEL SARMIENTON, EVANS R 466.0 ACUTE BRONCHITIS 10/27/2010 FORD DO GUZMAN K 466.0 ACUTE BRONCHITIS 10/27/2010 RAJOTTE ACCOUNT SERVICE ASSOCIATE, ORLY A 466.0 ACUTE BRONCHITIS 10/27/2010 RACIEL ACCOUNT SERVICE ASSOCIATE, EVANS R 466.0 ACUTE BRONCHITIS 10/27/2010 LUDWIG ACCOUNT SERVICE ASSOCIATE, TERRI Dahl 466.0 ACUTE BRONCHITIS 10/27/2010 DEANNE LCMF, KENYETTA W 466.0 ACUTE BRONCHITIS 10/27/2010 VLAD ACCOUNT SERVICE ASSOCIATE, MILIND L 466.0 ACUTE BRONCHITIS 10/27/2010 DEANNE LCMF, KENYETTA W 466.0 ACUTE BRONCHITIS 10/27/2010 CINTHIA HOLT, DIANE M 466.0 ACUTE BRONCHITIS 12/01/2010 FORD DO, GUZMAN K 625.9 PELVIC PAIN 12/01/2010 FORD DO, GUZMAN K 784.0 HEADACHE 12/01/2010 NOEMÍ MCCLURE MD, KIARA A 625.9 PELVIC PAIN 12/01/2010 NOEMÍ MCCLURE MD, KIARA A 784.0 HEADACHE 12/01/2010 CARLEEN ACCOUNT SERVICE ASSOCIATE, KASSY S 625.9 PELVIC PAIN 12/01/2010 CARLEEN ACCOUNT SERVICE ASSOCIATE, KASSY S 784.0 HEADACHE 12/01/2010 CARLEEN ACCOUNT SERVICE ASSOCIATE, KASSY S 625.9 PELVIC PAIN 12/01/2010 CARLEEN ACCOUNT SERVICE ASSOCIATE, KASSY S 784.0 HEADACHE 12/01/2010 FORD DO, GUZMAN K 625.9 PELVIC PAIN 12/01/2010 FORD DO, GUZMAN K 784.0 HEADACHE 12/01/2010 RACIEL ACCOUNT SERVICE ASSOCIATE, EVANS R 625.9 PELVIC PAIN 12/01/2010 RACIEL ACCOUNT SERVICE ASSOCIATE, EVANS R 784.0 HEADACHE 12/01/2010 RODRIGUEZ CASHERO ACCOUNT SERVICE ASSOCIATE, ALICE N 625.9 PELVIC PAIN 12/01/2010 RODRIGUEZ CASHERO ACCOUNT SERVICE ASSOCIATE, ALICE N 784.0 HEADACHE 12/01/2010 FORD DO, GUZMAN K 625.9 PELVIC PAIN 12/01/2010 FORD DO, GUZMAN K 784.0 HEADACHE 12/01/2010 CARLEEN ACCOUNT SERVICE ASSOCIATE, KASSY S 625.9 PELVIC PAIN 12/01/2010 CARLEEN ACCOUNT SERVICE ASSOCIATE, KASSY S 784.0 HEADACHE 12/01/2010 RODRIGUEZ CASHERO ACCOUNT SERVICE ASSOCIATE, ALICE N 625.9 PELVIC PAIN 12/01/2010 RODRIGUEZ CASHERO ACCOUNT SERVICE ASSOCIATE, ALICE N 784.0 HEADACHE 12/01/2010 RACIEL ACCOUNT SERVICE ASSOCIATE, EVANS R 625.9 PELVIC PAIN 12/01/2010 RACIEL ACCOUNT SERVICE ASSOCIATE, EVANS R 784.0 HEADACHE 12/01/2010 FORD DO, GUZMAN K 625.9 PELVIC PAIN 12/01/2010 FORD DO, GUZMAN K 784.0 HEADACHE 12/01/2010 RAJOTTE ACCOUNT SERVICE ASSOCIATE, ORLY A 625.9 PELVIC PAIN 12/01/2010 RAJOTTE ACCOUNT SERVICE ASSOCIATE, ORLY A 784.0 HEADACHE 12/01/2010 RACIEL ACCOUNT SERVICE ASSOCIATE, EVANS R 625.9 PELVIC PAIN 12/01/2010 RACIEL ACCOUNT SERVICE ASSOCIATE, EVANS R 784.0 HEADACHE 12/01/2010 MUNROE ACCOUNT SERVICE ASSOCIATE, TERRI D 625.9 PELVIC PAIN 12/01/2010 MUNROE ACCOUNT SERVICE ASSOCIATE, TERRI D 784.0 HEADACHE 12/01/2010 DEANNE LCMF, KENYETTA W 625.9 PELVIC PAIN 12/01/2010 DEANNE LCMF, KENYETTA W 784.0 HEADACHE 12/01/2010 MADL ACCOUNT SERVICE ASSOCIATE, MILIND L 625.9 PELVIC PAIN 12/01/2010 MADL ACCOUNT SERVICE ASSOCIATE, MILIND L 784.0 HEADACHE 12/01/2010 DEANNE LCMF, KENYETTA W 625.9 PELVIC PAIN 12/01/2010 DEANNE LCMF, KENYETTA W 784.0 HEADACHE 12/01/2010 CINTHIA PORCELAIN ENAMEL REPAIRER, DIANE M 625.9 PELVIC PAIN 12/01/2010 CINTHIA PORCELAIN ENAMEL REPAIRER, DIANE M 784.0 HEADACHE 01/30/2011 FORD DO, GUZMAN K 788.63 URINARY URGENCY 01/30/2011 FORD DO, GUZMAN K V74.5 STD SCREEN 01/30/2011 NOEMÍ MCCLURE MD, KIARA A 788.63 URINARY URGENCY 01/30/2011 NOEMÍ MCCLURE MD, KIARA A V74.5 STD SCREEN 01/30/2011 CARLEEN ACCOUNT SERVICE ASSOCIATE, KASSY S 788.63 URINARY URGENCY 01/30/2011 CARLEEN ACCOUNT SERVICE ASSOCIATE, KASSY S V74.5 STD SCREEN 01/30/2011 CARLEEN ACCOUNT SERVICE ASSOCIATE, KASSY S 788.63 URINARY URGENCY 01/30/2011 CARLEEN ACCOUNT SERVICE ASSOCIATE, KASSY S V74.5 STD SCREEN 01/30/2011 FORD DO, GUZMAN K 788.63 URINARY URGENCY 01/30/2011 FORD DO, GUZMAN K V74.5 STD SCREEN 01/30/2011 RACIEL ACCOUNT SERVICE ASSOCIATE, EVANS R 788.63 URINARY URGENCY 01/30/2011 RACIEL ACCOUNT SERVICE ASSOCIATE, EVANS R V74.5 STD SCREEN 01/30/2011 RODRIGUEZ CASHERO ACCOUNT SERVICE ASSOCIATE, ALICE N 788.63 URINARY URGENCY 01/30/2011 RODRIGUEZ CASHERO ACCOUNT SERVICE ASSOCIATE, ALICE N V74.5 STD SCREEN 01/30/2011 FORD DO, GUZMAN K 788.63 URINARY URGENCY 01/30/2011 FORD DO, GUZMAN K V74.5 STD SCREEN 01/30/2011 CARLEEN ACCOUNT SERVICE ASSOCIATE, KASSY S 788.63 URINARY URGENCY 01/30/2011 CARLEEN ACCOUNT SERVICE ASSOCIATE, KASSY S V74.5 STD SCREEN 01/30/2011 RODRIGUEZ CASHERO ACCOUNT SERVICE ASSOCIATE, ALICE N 788.63 URINARY URGENCY 01/30/2011 RODRIGUEZ CASHERO ACCOUNT SERVICE ASSOCIATE, ALICE N V74.5 STD SCREEN 01/30/2011 RACIEL ACCOUNT SERVICE ASSOCIATE, EVANS R 788.63 URINARY URGENCY 01/30/2011 RACIEL ACCOUNT SERVICE ASSOCIATE, EVANS R V74.5 STD SCREEN 01/30/2011 FORD DO, GUZMAN K 788.63 URINARY URGENCY 01/30/2011 FORD DO, GUZMAN K V74.5 STD SCREEN 01/30/2011 RAJOTTE ACCOUNT SERVICE ASSOCIATE, ORLY A 788.63 URINARY URGENCY 01/30/2011 RAJOTTE ACCOUNT SERVICE ASSOCIATE, ORLY A V74.5 STD SCREEN 01/30/2011 RACIEL ACCOUNT SERVICE ASSOCIATE, EVANS R 788.63 URINARY URGENCY 01/30/2011 RACIEL ACCOUNT SERVICE ASSOCIATE, EVANS R V74.5 STD SCREEN 01/30/2011 LUDWIG ACCOUNT SERVICE ASSOCIATERONNI BillON D 788.63 URINARY URGENCY 01/30/2011 LUDWIG ACCOUNT SERVICE ASSOCIATETERRI Bill V74.5 STD SCREEN 01/30/2011 DEANNE HOLCOMBMF, KENYETTA Hernandez 788.63 URINARY URGENCY 01/30/2011 DEANNE LCMF, KENYETTA Hernandez V74.5 STD SCREEN 01/30/2011 VLAD ACCOUNT SERVICE ASSOCIATEMILIND Bill 788.63 URINARY URGENCY 01/30/2011 MADL ACCOUNT SERVICE ASSOCIATE, MILIND L V74.5 STD SCREEN 01/30/2011 DEANNE AICHAMF, KENYETTA Hernandez 788.63 URINARY URGENCY 01/30/2011 DEANNE AICHAIrish, KENYETTA Hernandez V74.5 STD SCREEN 01/30/2011 DIANE ANGELA 788.63 URINARY URGENCY 01/30/2011 DIANE ANGELA V74.5 STD SCREEN 05/26/2011 Ot 787.03 05/26/2011 Ot 789.06 05/26/2011 Ot 790.5 06/12/2011 Ot 599.0 06/12/2011 Ot 729.1 06/12/2011 Ot 787.02 06/19/2011 FORD DO, GUZMAN K 535.00 ACUTE GASTRITIS (WITHOUT HEMORRHAGE) 06/19/2011 FORD DO, GUZMAN K 729.1 FIBROMYALGIA 06/19/2011 FORD DO, GUZMAN K 788.1 DYSURIA 06/19/2011 NOEMÍ MCCLURE MD, KIARA A 535.00 ACUTE GASTRITIS (WITHOUT HEMORRHAGE) 06/19/2011 NOEMÍ MCCLURE MD, KIARA A 729.1 FIBROMYALGIA 06/19/2011 NOEMÍ MCCLURE MD, KIARA A 788.1 DYSURIA 06/19/2011 CARLEEN ACCOUNT SERVICE ASSOCIATE, KASSY S 535.00 ACUTE GASTRITIS (WITHOUT HEMORRHAGE) 06/19/2011 CARLEEN ACCOUNT SERVICE ASSOCIATE, KASSY S 729.1 FIBROMYALGIA 06/19/2011 CARLEEN ACCOUNT SERVICE ASSOCIATE, KASSY S 788.1 DYSURIA 06/19/2011 CARLEEN ACCOUNT SERVICE ASSOCIATE, KASSY S 535.00 ACUTE GASTRITIS (WITHOUT HEMORRHAGE) 06/19/2011 CARLEEN ACCOUNT SERVICE ASSOCIATE, KASSY S 729.1 FIBROMYALGIA 06/19/2011 CARLEEN ACCOUNT SERVICE ASSOCIATE, KASSY S 788.1 DYSURIA 06/19/2011 FORD DO GUZMAN K 535.00 ACUTE GASTRITIS (WITHOUT HEMORRHAGE) 06/19/2011 FORD DO, GUZMAN K 729.1 FIBROMYALGIA 06/19/2011 FORD DO, GUZMAN K 788.1 DYSURIA 06/19/2011 RACIEL LEE EVANS R 535.00 ACUTE GASTRITIS (WITHOUT HEMORRHAGE) 06/19/2011 RACIEL ACCOUNT SERVICE ASSOCIATE EVANS R 729.1 FIBROMYALGIA 06/19/2011 RACIEL LEE EVANS R 788.1 DYSURIA 06/19/2011 ALICE MARTINS APRN N 535.00 ACUTE GASTRITIS (WITHOUT HEMORRHAGE) 06/19/2011 RODRIGUEZ CASHERO ACCOUNT SERVICE ASSOCIATE, ALICE N 729.1 FIBROMYALGIA 06/19/2011 RODRIGUEZ CASHERO ACCOUNT SERVICE ASSOCIATE, ALICE N 788.1 DYSURIA 06/19/2011 FORD DO, GUZMAN K 535.00 ACUTE GASTRITIS (WITHOUT HEMORRHAGE) 06/19/2011 FORD DO, GUZMAN K 729.1 FIBROMYALGIA 06/19/2011 FORD DO, GUZMAN K 788.1 DYSURIA 06/19/2011 CARLEEN ACCOUNT SERVICE ASSOCIATE, KASSY S 535.00 ACUTE GASTRITIS (WITHOUT HEMORRHAGE) 06/19/2011 CARLEEN ACCOUNT SERVICE ASSOCIATE, KASSY S 729.1 FIBROMYALGIA 06/19/2011 CARLEEN ACCOUNT SERVICE ASSOCIATE, KASSY S 788.1 DYSURIA 06/19/2011 RODRIGUEZ JESSICAALVAREZ ACCOUNT SERVICE ASSOCIATE, ALICE N 535.00 ACUTE GASTRITIS (WITHOUT HEMORRHAGE) 06/19/2011 MICHAEL LOPEZERO ACCOUNT SERVICE ASSOCIATE, ALICE N 729.1 FIBROMYALGIA 06/19/2011 RODRIGUEZ JESSICAERO ACCOUNT SERVICE ASSOCIATE, ALICE N 788.1 DYSURIA 06/19/2011 RACIEL LEE EVANS R 535.00 ACUTE GASTRITIS (WITHOUT HEMORRHAGE) 06/19/2011 RACIEL LEE EVANS R 729.1 FIBROMYALGIA 06/19/2011 RACIEL LEE, EVANS R 788.1 DYSURIA 06/19/2011 FORD DO, GUZMAN K 535.00 ACUTE GASTRITIS (WITHOUT HEMORRHAGE) 06/19/2011 FORD DO, GUZMAN K 729.1 FIBROMYALGIA 06/19/2011 FORD DO, GUZMAN K 788.1 DYSURIA 06/19/2011 AR LEE, ORLY A 535.00 ACUTE GASTRITIS (WITHOUT HEMORRHAGE) 06/19/2011 KATHYE JESUS ORLY A 729.1 FIBROMYALGIA 06/19/2011 KATHYE ACCOUNT SERVICE ASSOCIATE, ORLY A 788.1 DYSURIA 06/19/2011 RACIEL LEE EVANS R 535.00 ACUTE GASTRITIS (WITHOUT HEMORRHAGE) 06/19/2011 RACIEL LEE EVANS R 729.1 FIBROMYALGIA 06/19/2011 RACIEL LEE EVANS R 788.1 DYSURIA 06/19/2011 TERRI MUNROE APRN 535.00 ACUTE GASTRITIS (WITHOUT HEMORRHAGE) 06/19/2011 TERRI MUNROE APRN 729.1 FIBROMYALGIA 06/19/2011 TERRI MUNROE APRN 788.1 DYSURIA 06/19/2011 DEANNE HOLCOMBMF, KENYETTA W 535.00 ACUTE GASTRITIS (WITHOUT HEMORRHAGE) 06/19/2011 DEANNE LCMF, KENYETTA W 729.1 FIBROMYALGIA 06/19/2011 DEANNE LCMF, KENYETTA W 788.1 DYSURIA 06/19/2011 MADL ACCOUNT SERVICE ASSOCIATE, MILIND L 535.00 ACUTE GASTRITIS (WITHOUT HEMORRHAGE) 06/19/2011 MADL ACCOUNT SERVICE ASSOCIATE, MILIND L 729.1 FIBROMYALGIA 06/19/2011 MADL ACCOUNT SERVICE ASSOCIATE, MILIND L 788.1 DYSURIA 06/19/2011 DEANNE HOLCOMBMF, KENYETTA W 535.00 ACUTE GASTRITIS (WITHOUT HEMORRHAGE) 06/19/2011 DEANNE LCMF, KENYETTA W 729.1 FIBROMYALGIA 06/19/2011 DEANNE LCMF, KENYETTA W 788.1 DYSURIA 06/19/2011 DIANE ANGELA M 535.00 ACUTE GASTRITIS (WITHOUT HEMORRHAGE) 06/19/2011 CINTHIA HOLT, DIANE M 729.1 FIBROMYALGIA 06/19/2011 CINTHIA HOLT, DIANE M 788.1 DYSURIA 07/19/2011 LOGAN MCKEON, GUZMAN K 780.52 insomnia 07/19/2011 NOEMÍ MCCLURE MD, KIARA Rebolledo 780.52 insomnia 07/19/2011 PHILLIP DURANT APRNA S 780.52 insomnia 07/19/2011 CARLEEN LEE KASSY S 780.52 insomnia 07/19/2011 FORD DO GUZMAN K 780.52 insomnia 07/19/2011 АННА SCHRADER APRNINA R 780.52 insomnia 07/19/2011 ALICE MARTINS APRN N 780.52 insomnia 07/19/2011 FORD DO GUZMAN K 780.52 insomnia 07/19/2011 CARLEEN LEE KASSY S 780.52 insomnia 07/19/2011 OMKAR MARTINS APRNCY N 780.52 insomnia 07/19/2011 АННА SCHRADER APRNINA R 780.52 insomnia 07/19/2011 FORD DO GUZMAN K 780.52 insomnia 07/19/2011 ORLY JOYNER APRN A 780.52 insomnia 07/19/2011 АННА SCHRADER APRNINA R 780.52 insomnia 07/19/2011 TERRI MUNROE APRN 780.52 insomnia 07/19/2011 DEANNE LCMF, KENYETTA W 780.52 insomnia 07/19/2011 MILIND CHU APRN Jes 780.52 insomnia 07/19/2011 DEANNE BUCKNER, KENYETTA W 780.52 insomnia 07/19/2011 CINTHIA JONATHONDIANE 780.52 insomnia 08/12/2011 Ot 729.1 08/13/2011 FORD DO, GUZMAN K 724.1 PAIN IN THORACIC SPINE 08/13/2011 FORD DO, GUZMAN K 729.5 PAIN IN LIMB 08/13/2011 KIARA WILLAMS MD A 724.1 PAIN IN THORACIC SPINE 08/13/2011 KIARA WILLAMS MD 729.5 PAIN IN LIMB 08/13/2011 CARLEEN ACCOUNT SERVICE ASSOCIATE, KASSY S 724.1 PAIN IN THORACIC SPINE 08/13/2011 CARLEEN ACCOUNT SERVICE ASSOCIATE, KASSY S 729.5 PAIN IN LIMB 08/13/2011 CARLEEN ACCOUNT SERVICE ASSOCIATE, KASSY S 724.1 PAIN IN THORACIC SPINE 08/13/2011 CARLEEN ACCOUNT SERVICE ASSOCIATE, KASSY S 729.5 PAIN IN LIMB 08/13/2011 FORD DO, GUZMAN K 724.1 PAIN IN THORACIC SPINE 08/13/2011 FORD DO, GUZMAN K 729.5 PAIN IN LIMB 08/13/2011 RACIEL ACCOUNT SERVICE ASSOCIATE, EVANS R 724.1 PAIN IN THORACIC SPINE 08/13/2011 RACIEL ACCOUNT SERVICE ASSOCIATE, EVANS R 729.5 PAIN IN LIMB 08/13/2011 RODRIGUEZ CRISTY ACCOUNT SERVICE ASSOCIATE, ALICE N 724.1 PAIN IN THORACIC SPINE 08/13/2011 RODRIGUEZ CASHERO ACCOUNT SERVICE ASSOCIATE, ALICE N 729.5 PAIN IN LIMB 08/13/2011 FORD DO, GUZMAN K 724.1 PAIN IN THORACIC SPINE 08/13/2011 FORD DO, GUZMAN K 729.5 PAIN IN LIMB 08/13/2011 CARLEEN ACCOUNT SERVICE ASSOCIATE, KASSY S 724.1 PAIN IN THORACIC SPINE 08/13/2011 CARLEEN ACCOUNT SERVICE ASSOCIATE, KASSY S 729.5 PAIN IN LIMB 08/13/2011 RODRIGUEZ CASHERO ACCOUNT SERVICE ASSOCIATE, ALICE N 724.1 PAIN IN THORACIC SPINE 08/13/2011 RODRIGUEZ CASHERO ACCOUNT SERVICE ASSOCIATE, ALICE N 729.5 PAIN IN LIMB 08/13/2011 RACIEL ACCOUNT SERVICE ASSOCIATE, EVANS R 724.1 PAIN IN THORACIC SPINE 08/13/2011 RACIEL ACCOUNT SERVICE ASSOCIATE, EVANS R 729.5 PAIN IN LIMB 08/13/2011 FORD DO, GUZMAN K 724.1 PAIN IN THORACIC SPINE 08/13/2011 FORD DO, GUZMAN K 729.5 PAIN IN LIMB 08/13/2011 RAJOTTE ACCOUNT SERVICE ASSOCIATE, ORLY A 724.1 PAIN IN THORACIC SPINE 08/13/2011 RAJOTTE ACCOUNT SERVICE ASSOCIATE, ORLY A 729.5 PAIN IN LIMB 08/13/2011 RACIEL ACCOUNT SERVICE ASSOCIATE, EVANS R 724.1 PAIN IN THORACIC SPINE 08/13/2011 RACIEL ACCOUNT SERVICE ASSOCIATE, EVANS R 729.5 PAIN IN LIMB 08/13/2011 TERRI MUNROE APRN 724.1 PAIN IN THORACIC SPINE 08/13/2011 TERRI MUNROE APRN 729.5 PAIN IN LIMB 08/13/2011 DEANNE BUCKNER, KENYETTA Hernandez 724.1 PAIN IN THORACIC SPINE 08/13/2011 DEANNE AVILAF, KENYETTA Hernandez 729.5 PAIN IN LIMB 08/13/2011 MADL CLEMENTINA LEEWNYA L 724.1 PAIN IN THORACIC SPINE 08/13/2011 MADL JESUS, MILIND L 729.5 PAIN IN LIMB 08/13/2011 DEANNE AVILAF, KENYETTA W 724.1 PAIN IN THORACIC SPINE 08/13/2011 DEANNE LCMF, KENYETTA W 729.5 PAIN IN LIMB 08/13/2011 DIANE ANGELA 724.1 PAIN IN THORACIC SPINE 08/13/2011 DIANE ANGELA 729.5 PAIN IN LIMB 10/05/2011 FORD DO, GUZMAN K 296.90 MOOD DISORDER 10/05/2011 FORD DO, GUZMAN K 300.00 ANXIETY UNSPEC 10/05/2011 FORD DO, GUZMAN K 719.40 ARTHRAIGIA UNSPEC 10/05/2011 FORD DO, GUZMAN K 780.50 SLEEP DISTURBANCE, UNSPECIFIED 10/05/2011 KIARA WILLAMS MD 296.90 MOOD DISORDER 10/05/2011 KIARA WILLAMS MD 300.00 ANXIETY UNSPEC 10/05/2011 EASH KAMI MD, KIARA A 719.40 ARTHRAIGIA UNSPEC 10/05/2011 NOEMÍ MCCLURE MD, KIARA Rebolledo 780.50 SLEEP DISTURBANCE, UNSPECIFIED 10/05/2011 CARLEEN ACCOUNT SERVICE ASSOCIATE, KASSY S 296.90 MOOD DISORDER 10/05/2011 CARLEEN ACCOUNT SERVICE ASSOCIATE, KASSY S 300.00 ANXIETY UNSPEC 10/05/2011 CARLEEN ACCOUNT SERVICE ASSOCIATE, KASSY S 719.40 ARTHRAIGIA UNSPEC 10/05/2011 CARLEEN ACCOUNT SERVICE ASSOCIATE, KASSY S 780.50 SLEEP DISTURBANCE, UNSPECIFIED 10/05/2011 CARLEEN ACCOUNT SERVICE ASSOCIATE, KASSY S 296.90 MOOD DISORDER 10/05/2011 CARLEEN ACCOUNT SERVICE ASSOCIATE, KASSY S 300.00 ANXIETY UNSPEC 10/05/2011 CARLEEN ACCOUNT SERVICE ASSOCIATE, KASSY S 719.40 ARTHRAIGIA UNSPEC 10/05/2011 CARLEEN ACCOUNT SERVICE ASSOCIATE, KASSY S 780.50 SLEEP DISTURBANCE, UNSPECIFIED 10/05/2011 FORD DO, GUZMAN K 296.90 MOOD DISORDER 10/05/2011 FORD DO, GUZMAN K 300.00 ANXIETY UNSPEC 10/05/2011 FORD DO, GUZMAN K 719.40 ARTHRAIGIA UNSPEC 10/05/2011 FORD DO, GUZMAN K 780.50 SLEEP DISTURBANCE, UNSPECIFIED 10/05/2011 RACIEL ACCOUNT SERVICE ASSOCIATE, EVANS R 296.90 MOOD DISORDER 10/05/2011 RACIEL LEE, EVANS R 300.00 ANXIETY UNSPEC 10/05/2011 RACIEL ACCOUNT SERVICE ASSOCIATE, EVANS R 719.40 ARTHRAIGIA UNSPEC 10/05/2011 RACIEL LEE, EVANS R 780.50 SLEEP DISTURBANCE, UNSPECIFIED 10/05/2011 MICHAEL CASHALAVREZ ACCOUNT SERVICE ASSOCIATE, ALICE N 296.90 MOOD DISORDER 10/05/2011 MICHAEL CASHERO ACCOUNT SERVICE ASSOCIATE, ALICE N 300.00 ANXIETY UNSPEC 10/05/2011 RODRIGUEZ CASHERO ACCOUNT SERVICE ASSOCIATE, ALICE N 719.40 ARTHRAIGIA UNSPEC 10/05/2011 MICHAEL CASHERO ACCOUNT SERVICE ASSOCIATE, ALICE N 780.50 SLEEP DISTURBANCE, UNSPECIFIED 10/05/2011 FORD DO, GUZMAN K 296.90 MOOD DISORDER 10/05/2011 FORD DO, GUZMAN K 300.00 ANXIETY UNSPEC 10/05/2011 FORD DO, GUZMAN K 719.40 ARTHRAIGIA UNSPEC 10/05/2011 FORD DO, GUZMAN K 780.50 SLEEP DISTURBANCE, UNSPECIFIED 10/05/2011 CARLEEN ACCOUNT SERVICE ASSOCIATE, KASSY S 296.90 MOOD DISORDER 10/05/2011 CARLEEN ACCOUNT SERVICE ASSOCIATE, KASSY S 300.00 ANXIETY UNSPEC 10/05/2011 CARLEEN ACCOUNT SERVICE ASSOCIATE, KASSY S 719.40 ARTHRAIGIA UNSPEC 10/05/2011 CARLEEN ACCOUNT SERVICE ASSOCIATE, KASSY S 780.50 SLEEP DISTURBANCE, UNSPECIFIED 10/05/2011 MICAHEL LOPEZERO ACCOUNT SERVICE ASSOCIATE, ALICE N 296.90 MOOD DISORDER 10/05/2011 RODRIGUEZ CASHERO ACCOUNT SERVICE ASSOCIATE, ALICE N 300.00 ANXIETY UNSPEC 10/05/2011 RODRIGUEZ JESSICAERO ACCOUNT SERVICE ASSOCIATE, ALICE N 719.40 ARTHRAIGIA UNSPEC 10/05/2011 MICHAEL LOPEZERO ACCOUNT SERVICE ASSOCIATE, ALICE N 780.50 SLEEP DISTURBANCE, UNSPECIFIED 10/05/2011 RACIEL SARMIENTON, EVANS R 296.90 MOOD DISORDER 10/05/2011 RACIEL SARMIENTON, EVANS R 300.00 ANXIETY UNSPEC 10/05/2011 RACIEL SARMIENTON, EVANS R 719.40 ARTHRAIGIA UNSPEC 10/05/2011 RACIEL SARMIENTON, EVANS R 780.50 SLEEP DISTURBANCE, UNSPECIFIED 10/05/2011 FORD DO, GUZMAN K 296.90 MOOD DISORDER 10/05/2011 FORD DO, GUZMAN K 300.00 ANXIETY UNSPEC 10/05/2011 FORD DO, GUZMAN K 719.40 ARTHRAIGIA UNSPEC 10/05/2011 FORD DO, GUZMAN K 780.50 SLEEP DISTURBANCE, UNSPECIFIED 10/05/2011 AR ACCOUNT SERVICE ASSOCIATE, ORLY A 296.90 MOOD DISORDER 10/05/2011 AR SARMIENTON, ORLY A 300.00 ANXIETY UNSPEC 10/05/2011 KATHYE ACCOUNT SERVICE ASSOCIATE, ORLY A 719.40 ARTHRAIGIA UNSPEC 10/05/2011 KATHYE ACCOUNT SERVICE ASSOCIATE, ORLY A 780.50 SLEEP DISTURBANCE, UNSPECIFIED 10/05/2011 RACIEL SARMIENTON, EVANS R 296.90 MOOD DISORDER 10/05/2011 RACIEL SARMIENTON, EVANS R 300.00 ANXIETY UNSPEC 10/05/2011 RACIEL SARMIENTON, EVANS R 719.40 ARTHRAIGIA UNSPEC 10/05/2011 RACIEL LEE, EVANS R 780.50 SLEEP DISTURBANCE, UNSPECIFIED 10/05/2011 TERRI MUNROE APRN 296.90 MOOD DISORDER 10/05/2011 TERRI MUNROE APRN 300.00 ANXIETY UNSPEC 10/05/2011 TERRI MUNROE APRN 719.40 ARTHRAIGIA UNSPEC 10/05/2011 TERRI MUNROE APRN 780.50 SLEEP DISTURBANCE, UNSPECIFIED 10/05/2011 DEANNE LCMF, KENYETTA W 296.90 MOOD DISORDER 10/05/2011 DEANNE MF, KENYETTA W 300.00 ANXIETY UNSPEC 10/05/2011 [facility] KENYETTA W 719.40 ARTHRAIGIA UNSPEC 10/05/2011 [facility], KENYETTA W 780.50 SLEEP DISTURBANCE, UNSPECIFIED 10/05/2011 MADL ACCOUNT SERVICE ASSOCIATE, MILIND L 296.90 MOOD DISORDER 10/05/2011 MADL ACCOUNT SERVICE ASSOCIATE, MILIND L 300.00 ANXIETY UNSPEC 10/05/2011 MADL ACCOUNT SERVICE ASSOCIATE, MILIND L 719.40 ARTHRAIGIA UNSPEC 10/05/2011 MADL ACCOUNT SERVICE ASSOCIATE, MILIND L 780.50 SLEEP DISTURBANCE, UNSPECIFIED 10/05/2011 [facility], KENYETTA W 296.90 MOOD DISORDER 10/05/2011 [facility], KENYETTA W 300.00 ANXIETY UNSPEC 10/05/2011 [facility], KENYETTA W 719.40 ARTHRAIGIA UNSPEC 10/05/2011 [facility], KENYETTA W 780.50 SLEEP DISTURBANCE, UNSPECIFIED 10/05/2011 DIANE ANGELA M 296.90 MOOD DISORDER 10/05/2011 CINTHIA PORCELAIN ENAMEL REPAIRER, DIANE M 300.00 ANXIETY UNSPEC 10/05/2011 CINTHIA PORCELAIN ENAMEL REPAIRER, IDANE M 719.40 ARTHRAIGIA UNSPEC 10/05/2011 CINTHIA PORCELAIN ENAMEL REPAIRER, DIANE M 780.50 SLEEP DISTURBANCE, UNSPECIFIED 10/14/2011 Ot 780.96 10/24/2011 FORD DO, GUZMAN K 782.0 SENSORY DISTURBANCE SKIN 10/24/2011 FORD DO GUZMAN K 787.01 NAUSEA WITH VOMITING 10/24/2011 KIARA WILLAMS MD 782.0 SENSORY DISTURBANCE SKIN 10/24/2011 KIARA WILLAMS MD 787.01 NAUSEA WITH VOMITING 10/24/2011 CARLEEN ACCOUNT SERVICE ASSOCIATE, KASSY S 782.0 SENSORY DISTURBANCE SKIN 10/24/2011 PHILLIP DURANT APRNA S 787.01 NAUSEA WITH VOMITING 10/24/2011 PHILLIP DURANT APRNA S 782.0 SENSORY DISTURBANCE SKIN 10/24/2011 PHILLIP DURANT APRNA S 787.01 NAUSEA WITH VOMITING 10/24/2011 FORD DO, GUZMAN K 782.0 SENSORY DISTURBANCE SKIN 10/24/2011 FORD DO, GUZMAN K 787.01 NAUSEA WITH VOMITING 10/24/2011 RACIEL LEE EVANS R 782.0 SENSORY DISTURBANCE SKIN 10/24/2011 RACIEL LEE EVANS R 787.01 NAUSEA WITH VOMITING 10/24/2011 MICHAEL MUNIZ APRN ALICE N 782.0 SENSORY DISTURBANCE SKIN 10/24/2011 MICHAEL MUNIZ APRN ALICE N 787.01 NAUSEA WITH VOMITING 10/24/2011 FORD DO, GUZMAN K 782.0 SENSORY DISTURBANCE SKIN 10/24/2011 FORD DO, GUZMAN K 787.01 NAUSEA WITH VOMITING 10/24/2011 PHILLIP DURANT APRNA S 782.0 SENSORY DISTURBANCE SKIN 10/24/2011 KASSY DURANT APRN S 787.01 NAUSEA WITH VOMITING 10/24/2011 MICHAEL MUNIZ APRN ALICE N 782.0 SENSORY DISTURBANCE SKIN 10/24/2011 MICHAEL MUNIZ APRN, ALICE N 787.01 NAUSEA WITH VOMITING 10/24/2011 RACIEL LEE EVANS R 782.0 SENSORY DISTURBANCE SKIN 10/24/2011 RACIEL LEE EVANS R 787.01 NAUSEA WITH VOMITING 10/24/2011 FORD DO, GUZMAN K 782.0 SENSORY DISTURBANCE SKIN 10/24/2011 FORD DO, GUZMAN K 787.01 NAUSEA WITH VOMITING 10/24/2011 AR LEE, ORLY A 782.0 SENSORY DISTURBANCE SKIN 10/24/2011 AR LEE ORLY A 787.01 NAUSEA WITH VOMITING 10/24/2011 RACIEL LEE EVANS R 782.0 SENSORY DISTURBANCE SKIN 10/24/2011 RACIEL LEE EVANS R 787.01 NAUSEA WITH VOMITING 10/24/2011 TERRI MUNROE APRN 782.0 SENSORY DISTURBANCE SKIN 10/24/2011 TERRI MUNROE APRN 787.01 NAUSEA WITH VOMITING 10/24/2011 DEANNE LCMF, KENYETTA W 782.0 SENSORY DISTURBANCE SKIN 10/24/2011 DEANNE LCMF, KENYETTA W 787.01 NAUSEA WITH VOMITING 10/24/2011 MADL ACCOUNT SERVICE ASSOCIATE, MILIND L 782.0 SENSORY DISTURBANCE SKIN 10/24/2011 MADL ACCOUNT SERVICE ASSOCIATE, MILIND L 787.01 NAUSEA WITH VOMITING 10/24/2011 DEANNE LCMF, KENYETTA W 782.0 SENSORY DISTURBANCE SKIN 10/24/2011 DEANNE LCMF, KENYETTA W 787.01 NAUSEA WITH VOMITING 10/24/2011 CINTHIA PORCELAIN ENAMEL REPAIRER, DIANE M 782.0 SENSORY DISTURBANCE SKIN 10/24/2011 CINTHIA PORCELAIN ENAMEL REPAIRER, DIANE M 787.01 NAUSEA WITH VOMITING 08/05/2012 GUZMAN FORD DO K 626.2 EXCESSIVE OR FREQUENT MENSTRUATION 08/05/2012 GUZMAN FORD DO V76.2 CERVICAL CANCER SCREENING (PAP SMEAR) 08/05/2012 KIARA WILLAMS MD 626.2 EXCESSIVE OR FREQUENT MENSTRUATION 08/05/2012 KIARA WILLAMS MD V76.2 CERVICAL CANCER SCREENING (PAP SMEAR) 08/05/2012 KASSY DURANT APRN S 626.2 EXCESSIVE OR FREQUENT MENSTRUATION 08/05/2012 ROXANE DURANT APRNNDA S V76.2 CERVICAL CANCER SCREENING (PAP SMEAR) 08/05/2012 PHILLIP DURANT APRNA S 626.2 EXCESSIVE OR FREQUENT MENSTRUATION 08/05/2012 ROXANE DURANT APRNNDA S V76.2 CERVICAL CANCER SCREENING (PAP SMEAR) 08/05/2012 GUZMAN FORD DO K 626.2 EXCESSIVE OR FREQUENT MENSTRUATION 08/05/2012 FORD GUZMAN MCKEON K V76.2 CERVICAL CANCER SCREENING (PAP SMEAR) 08/05/2012 АННА SCHRADER APRNINA R 626.2 EXCESSIVE OR FREQUENT MENSTRUATION 08/05/2012 RACIEL LEE EVANS R V76.2 CERVICAL CANCER SCREENING (PAP SMEAR) 08/05/2012 ALICE MARTINS APRN N 626.2 EXCESSIVE OR FREQUENT MENSTRUATION 08/05/2012 ALICE MARTINS APRN N V76.2 CERVICAL CANCER SCREENING (PAP SMEAR) 08/05/2012 FORD DO, GUZMAN K 626.2 EXCESSIVE OR FREQUENT MENSTRUATION 08/05/2012 FORD DO, GUZMAN K V76.2 CERVICAL CANCER SCREENING (PAP SMEAR) 08/05/2012 CARLEEN ACCOUNT SERVICE ASSOCIATE, KASSY S 626.2 EXCESSIVE OR FREQUENT MENSTRUATION 08/05/2012 CARLEEN ACCOUNT SERVICE ASSOCIATE, KASSY S V76.2 CERVICAL CANCER SCREENING (PAP SMEAR) 08/05/2012 OMKAR MARTINS APRNCY N 626.2 EXCESSIVE OR FREQUENT MENSTRUATION 08/05/2012 RODRIGUEZ JESSICAERO ACCOUNT SERVICE ASSOCIATE, ALICE N V76.2 CERVICAL CANCER SCREENING (PAP SMEAR) 08/05/2012 RACIEL ACCOUNT SERVICE ASSOCIATE, EVANS R 626.2 EXCESSIVE OR FREQUENT MENSTRUATION 08/05/2012 RACIEL SARMIENTON, EVANS R V76.2 CERVICAL CANCER SCREENING (PAP SMEAR) 08/05/2012 LOGAN MCKEON, GUZMAN K 626.2 EXCESSIVE OR FREQUENT MENSTRUATION 08/05/2012 FORD , GUZMAN K V76.2 CERVICAL CANCER SCREENING (PAP SMEAR) 08/05/2012 AR LEE, ORLY A 626.2 EXCESSIVE OR FREQUENT MENSTRUATION 08/05/2012 KATHYE JESUS, ORLY A V76.2 CERVICAL CANCER SCREENING (PAP SMEAR) 08/05/2012 RACIEL LEE, EVANS R 626.2 EXCESSIVE OR FREQUENT MENSTRUATION 08/05/2012 RACIEL LEE, EVANS R V76.2 CERVICAL CANCER SCREENING (PAP SMEAR) 08/05/2012 TERRI MUNROE APRN 626.2 EXCESSIVE OR FREQUENT MENSTRUATION 08/05/2012 TERRI MUNROE APRN V76.2 CERVICAL CANCER SCREENING (PAP SMEAR) 08/05/2012 KENYETTA NORRIS 626.2 EXCESSIVE OR FREQUENT MENSTRUATION 08/05/2012 DEANNE BUCKNER, KENYETTA Hernandez V76.2 CERVICAL CANCER SCREENING (PAP SMEAR) 08/05/2012 MILIND CHU APRN 626.2 EXCESSIVE OR FREQUENT MENSTRUATION 08/05/2012 MILIND CHU APRN V76.2 CERVICAL CANCER SCREENING (PAP SMEAR) 08/05/2012 DEANNE BUCKNER, KENYETTA Hernandez 626.2 EXCESSIVE OR FREQUENT MENSTRUATION 08/05/2012 DEANNE BUCKNER, KEYNETTA Hernandez V76.2 CERVICAL CANCER SCREENING (PAP SMEAR) 08/05/2012 DIANE ANGELA 626.2 EXCESSIVE OR FREQUENT MENSTRUATION 08/05/2012 DIANE ANGELA V76.2 CERVICAL CANCER SCREENING (PAP SMEAR) 07/09/2013 PHILLIP DURANT APRNA S 704.00 ALOPECIA UNSPECIFIED 07/09/2013 PHILLIP DURANT APRNA S V70.0 EXAM - ROUTINE H&P 07/09/2013 ROXANE DURANT APRNNDA S 704.00 ALOPECIA UNSPECIFIED 07/09/2013 ROXANE DURANT APRNNDA S V70.0 EXAM - ROUTINE H&P 07/09/2013 FORD DO, GUZMAN K 704.00 ALOPECIA UNSPECIFIED 07/09/2013 FORD DO, GUZMAN K V70.0 EXAM - ROUTINE H&P 07/09/2013 RACIEL LEE EVANS R 704.00 ALOPECIA UNSPECIFIED 07/09/2013 RACIEL LEE EVANS R V70.0 EXAM - ROUTINE H&P 07/09/2013 MICHAEL MUNIZ APRN ALICE N 704.00 ALOPECIA UNSPECIFIED 07/09/2013 MICHAEL LOPEZERO JESUS, ALICE N V70.0 EXAM - ROUTINE H&P 07/09/2013 FORD DO, GUZMAN K 704.00 ALOPECIA UNSPECIFIED 07/09/2013 FORD DO, GUZMAN K V70.0 EXAM - ROUTINE H&P 07/09/2013 ROXANE DURANT APRNNDA S 704.00 ALOPECIA UNSPECIFIED 07/09/2013 ROXANE DURANT APRNNDA S V70.0 EXAM - ROUTINE H&P 07/09/2013 MICHAEL MUNIZ APRN, ALICE N 704.00 ALOPECIA UNSPECIFIED 07/09/2013 MICHAEL LOPEZERO ACCOUNT SERVICE ASSOCIATE, ALICE N V70.0 EXAM - ROUTINE H&P 07/09/2013 RACIEL LEE EVANS R 704.00 ALOPECIA UNSPECIFIED 07/09/2013 RACIEL LEE EVANS R V70.0 EXAM - ROUTINE H&P 07/09/2013 FORD DO, GUZMAN K 704.00 ALOPECIA UNSPECIFIED 07/09/2013 FORD DO, GUZMAN K V70.0 EXAM - ROUTINE H&P 07/09/2013 RAJOTTE ACCOUNT SERVICE ASSOCIATE, ORLY A 704.00 ALOPECIA UNSPECIFIED 07/09/2013 AR SARMIENTON, ORLY A V70.0 EXAM - ROUTINE H&P 07/09/2013 RACIEL SARMIENTON, EVANS R 704.00 ALOPECIA UNSPECIFIED 07/09/2013 RACIEL SARMIENTON, EVANS R V70.0 EXAM - ROUTINE H&P 07/09/2013 MUNROE ACCOUNT SERVICE ASSOCIATE, TERRI D 704.00 ALOPECIA UNSPECIFIED 07/09/2013 MUNROE ACCOUNT SERVICE ASSOCIATE, TERRI D V70.0 EXAM - ROUTINE H&P 07/09/2013 DEANNE LCMF, KENYETTA W 704.00 ALOPECIA UNSPECIFIED 07/09/2013 DEANNE MF, KENYETTA W V70.0 EXAM - ROUTINE H&P 07/09/2013 MADL ACCOUNT SERVICE ASSOCIATE, MILIND L 704.00 ALOPECIA UNSPECIFIED 07/09/2013 MADL ACCOUNT SERVICE ASSOCIATE, MILIND L V70.0 EXAM - ROUTINE H&P 07/09/2013 [facility]NE [facility] KENYETTA W 704.00 ALOPECIA UNSPECIFIED 07/09/2013 [facility]NE [facility], KENYETTA W V70.0 EXAM - ROUTINE H&P 07/09/2013 CINTHIA HOLT, DIANE M 704.00 ALOPECIA UNSPECIFIED 07/09/2013 CINTHIA PORCELAIN ENAMEL REPAIRER, DIANE M V70.0 EXAM - ROUTINE H&P 09/01/2013 KASSY DURANT APRN S 354.0 CARPAL TUNNEL SYNDROME 09/01/2013 ADAM FORD DOA K 354.0 CARPAL TUNNEL SYNDROME 09/01/2013 АННА SCHRADER APRNINA R 354.0 CARPAL TUNNEL SYNDROME 09/01/2013 MICHAEL MUNIZ APRN, ALICE N 354.0 CARPAL TUNNEL SYNDROME 09/01/2013 FORD DO GUZMAN K 354.0 CARPAL TUNNEL SYNDROME 09/01/2013 PHILLIP DURANT APRNA S 354.0 CARPAL TUNNEL SYNDROME 09/01/2013 MICHAEL MUNIZ APRN, ALICE N 354.0 CARPAL TUNNEL SYNDROME 09/01/2013 RACIEL ELE, EVANS R 354.0 CARPAL TUNNEL SYNDROME 09/01/2013 FORD ADAM MCKEONA K 354.0 CARPAL TUNNEL SYNDROME 09/01/2013 RAJOTTE ACCOUNT SERVICE ASSOCIATE, ORLY A 354.0 CARPAL TUNNEL SYNDROME 09/01/2013 RACIEL LEE, EVANS R 354.0 CARPAL TUNNEL SYNDROME 09/01/2013 TERRI MUNROE APRN 354.0 CARPAL TUNNEL SYNDROME 09/01/2013 DEANNE AVILAF, KENYETTA W 354.0 CARPAL TUNNEL SYNDROME 09/01/2013 VLAD LEE, MILIND L 354.0 CARPAL TUNNEL SYNDROME 09/01/2013 DEANNE AVILAF, KENYETTA Hernandez 354.0 CARPAL TUNNEL SYNDROME 09/01/2013 DIANE ANGELA 354.0 CARPAL TUNNEL SYNDROME 09/03/2013 FORD DO, GUZMAN K 733.92 CHONDROMALACIA 09/03/2013 RACIEL LEE, EVANS R 733.92 CHONDROMALACIA 09/03/2013 MICHAEL MUNIZ ACCOUNT SERVICE ASSOCIATE, ALICE N 733.92 CHONDROMALACIA 09/03/2013 FORD DO, GUZMAN K 733.92 CHONDROMALACIA 09/03/2013 CARLEEN LEE KASSY S 733.92 CHONDROMALACIA 09/03/2013 MICHAEL MUNIZ ACCOUNT SERVICE ASSOCIATE, ALICE N 733.92 CHONDROMALACIA 09/03/2013 RACIEL ACCOUNT SERVICE ASSOCIATE, EVANS R 733.92 CHONDROMALACIA 09/03/2013 FORD DO, GUZMAN K 733.92 CHONDROMALACIA 09/03/2013 AR LEE ORLY A 733.92 CHONDROMALACIA 09/03/2013 RACIEL LEE, EVANS R 733.92 CHONDROMALACIA 09/03/2013 TERRI MUNROE APRN 733.92 CHONDROMALACIA 09/03/2013 DEANNE AVILAF, KENYETTA Hernandez 733.92 CHONDROMALACIA 09/03/2013 VLAD LEE, MILIND L 733.92 CHONDROMALACIA 09/03/2013 DEANNE AVILAF, KENYETTA Hernandez 733.92 CHONDROMALACIA 09/03/2013 DIANE ANGELA 733.92 CHONDROMALACIA 09/15/2013 RACIEL LEE, EVANS R 462 ACUTE PHARYNGITIS 09/15/2013 RACIEL LEE, EVANS R 786.2 COUGH 09/15/2013 MICHAEL MUNIZ APRN, ALICE N 462 ACUTE PHARYNGITIS 09/15/2013 RODRIGUEZ CASHERO ACCOUNT SERVICE ASSOCIATE, ALICE N 786.2 COUGH 09/15/2013 FORD DO, GUZMAN K 462 ACUTE PHARYNGITIS 09/15/2013 FORD DO, GUZMAN K 786.2 COUGH 09/15/2013 CARLEEN ACCOUNT SERVICE ASSOCIATE, KASSY S 462 ACUTE PHARYNGITIS 09/15/2013 CARLEEN ACCOUNT SERVICE ASSOCIATE, KASSY S 786.2 COUGH 09/15/2013 MICHAEL MUNIZ ACCOUNT SERVICE ASSOCIATE, ALICE N 462 ACUTE PHARYNGITIS 09/15/2013 MICHAEL LOPEZERO ACCOUNT SERVICE ASSOCIATE, ALICE N 786.2 COUGH 09/15/2013 RACIEL ACCOUNT SERVICE ASSOCIATE, EVANS R 462 ACUTE PHARYNGITIS 09/15/2013 RACIEL ACCOUNT SERVICE ASSOCIATE, EVANS R 786.2 COUGH 09/15/2013 FORD DO, GUZMAN K 462 ACUTE PHARYNGITIS 09/15/2013 FORD DO, GUZMAN K 786.2 COUGH 09/15/2013 RAJOTTE ACCOUNT SERVICE ASSOCIATE, ORLY A 462 ACUTE PHARYNGITIS 09/15/2013 RAJOTTE ACCOUNT SERVICE ASSOCIATE, ORLY A 786.2 COUGH 09/15/2013 RACIEL ACCOUNT SERVICE ASSOCIATE, EVANS R 462 ACUTE PHARYNGITIS 09/15/2013 RACIEL ACCOUNT SERVICE ASSOCIATE, EVANS R 786.2 COUGH 09/15/2013 LUDWIG ACCOUNT SERVICE ASSOCIATETERRI Bill D 462 ACUTE PHARYNGITIS 09/15/2013 LUDWIG ACCOUNT SERVICE ASSOCIATETERRI D 786.2 COUGH 09/15/2013 DEANNE LCMF, KENYETTA W 462 ACUTE PHARYNGITIS 09/15/2013 DEANNE LCMF, KENYETTA W 786.2 COUGH 09/15/2013 MADL ACCOUNT SERVICE ASSOCIATE, MILIND L 462 ACUTE PHARYNGITIS 09/15/2013 MADL ACCOUNT SERVICE ASSOCIATE, MILIND L 786.2 COUGH 09/15/2013 DEANNE LCMF, KENYETTA W 462 ACUTE PHARYNGITIS 09/15/2013 DEANNE LCMF, KENYETTA W 786.2 COUGH 09/15/2013 DIANE ANGELA 462 ACUTE PHARYNGITIS 09/15/2013 DIANE ANGELA 786.2 COUGH 09/29/2013 MICHAEL MUNIZ ACCOUNT SERVICE ASSOCIATE, ALICE N 477.9 ALLERGIC RHINITIS CAUSE UNSPECIFIED 09/29/2013 MICHAEL MUNIZ ACCOUNT SERVICE ASSOCIATE, ALICE N 478.19 OTHER DISEASES OF NASAL CAVITY AND SINUSES 09/29/2013 FORD DO, GUZMAN K 477.9 ALLERGIC RHINITIS CAUSE UNSPECIFIED 09/29/2013 FORD DO, GUZMAN K 478.19 OTHER DISEASES OF NASAL CAVITY AND SINUSES 09/29/2013 CARLEEN ACCOUNT SERVICE ASSOCIATE, KASSY S 477.9 ALLERGIC RHINITIS CAUSE UNSPECIFIED 09/29/2013 CARLEEN ACCOUNT SERVICE ASSOCIATE, KASSY S 478.19 OTHER DISEASES OF NASAL CAVITY AND SINUSES 09/29/2013 RODRIGUEZ CASHERO ACCOUNT SERVICE ASSOCIATE, ALICE N 477.9 ALLERGIC RHINITIS CAUSE UNSPECIFIED 09/29/2013 RODRIGUEZ CASHERO ACCOUNT SERVICE ASSOCIATE, ALICE N 478.19 OTHER DISEASES OF NASAL CAVITY AND SINUSES 09/29/2013 RACIEL ACCOUNT SERVICE ASSOCIATE, EVANS R 477.9 ALLERGIC RHINITIS CAUSE UNSPECIFIED 09/29/2013 RACIEL ACCOUNT SERVICE ASSOCIATE, EVANS R 478.19 OTHER DISEASES OF NASAL CAVITY AND SINUSES 09/29/2013 FORD DO, GUZMAN K 477.9 ALLERGIC RHINITIS CAUSE UNSPECIFIED 09/29/2013 FORD DO, GUZMAN K 478.19 OTHER DISEASES OF NASAL CAVITY AND SINUSES 09/29/2013 RAJOTTE ACCOUNT SERVICE ASSOCIATE, ORLY A 477.9 ALLERGIC RHINITIS CAUSE UNSPECIFIED 09/29/2013 RAJOTTE ACCOUNT SERVICE ASSOCIATE, ORLY A 478.19 OTHER DISEASES OF NASAL CAVITY AND SINUSES 09/29/2013 RACIEL ACCOUNT SERVICE ASSOCIATE, EVANS R 477.9 ALLERGIC RHINITIS CAUSE UNSPECIFIED 09/29/2013 RACIEL ACCOUNT SERVICE ASSOCIATE, EVANS R 478.19 OTHER DISEASES OF NASAL CAVITY AND SINUSES 09/29/2013 TERRI MUNROE APRN 477.9 ALLERGIC RHINITIS CAUSE UNSPECIFIED 09/29/2013 TERRI MUNROE APRN 478.19 OTHER DISEASES OF NASAL CAVITY AND SINUSES 09/29/2013 DEANNE AVILAFKENYETTA W 477.9 ALLERGIC RHINITIS CAUSE UNSPECIFIED 09/29/2013 DEANNE AVILAF, KENYETTA W 478.19 OTHER DISEASES OF NASAL CAVITY AND SINUSES 09/29/2013 BONNYL MILIND LEE 477.9 ALLERGIC RHINITIS CAUSE UNSPECIFIED 09/29/2013 MADL ACCOUNT SERVICE ASSOCIATEMILIND L 478.19 OTHER DISEASES OF NASAL CAVITY AND SINUSES 09/29/2013 DEANNE AVILAF, KENYETTA W 477.9 ALLERGIC RHINITIS CAUSE UNSPECIFIED 09/29/2013 DEANNE MF, KENYETTA W 478.19 OTHER DISEASES OF NASAL CAVITY AND SINUSES 09/29/2013 DIANE ANGELA M 477.9 ALLERGIC RHINITIS CAUSE UNSPECIFIED 09/29/2013 CINTHIA HOLT, DIANE M 478.19 OTHER DISEASES OF NASAL CAVITY AND SINUSES 11/02/2013 LOGAN DO GUZMAN K 719.46 PAIN IN JOINT INVOLVING LOWER LEG 11/02/2013 KASSY DURANT APRN 719.46 PAIN IN JOINT INVOLVING LOWER LEG 11/02/2013 MICHAEL MUNIZ APRN, ALICE N 719.46 PAIN IN JOINT INVOLVING LOWER LEG 11/02/2013 RACIEL LEE EVANS R 719.46 PAIN IN JOINT INVOLVING LOWER LEG 11/02/2013 LOGAN DO GUZMAN K 719.46 PAIN IN JOINT INVOLVING LOWER LEG 11/02/2013 MU JOYNER APRNYL A 719.46 PAIN IN JOINT INVOLVING LOWER LEG 11/02/2013 RACIEL LEE EVANS R 719.46 PAIN IN JOINT INVOLVING LOWER LEG 11/02/2013 TERRI MUNROE APRN 719.46 PAIN IN JOINT INVOLVING LOWER LEG 11/02/2013 [facility] KENYETTA W 719.46 PAIN IN JOINT INVOLVING LOWER LEG 11/02/2013 MILIND CHU APRN 719.46 PAIN IN JOINT INVOLVING LOWER LEG 11/02/2013 [facility], KENYETTA W 719.46 PAIN IN JOINT INVOLVING LOWER LEG 11/02/2013 DIANE ANGELA 719.46 PAIN IN JOINT INVOLVING LOWER LEG 12/01/2013 MICHAEL MUNIZ APRN, ALICE N 691.8 OTHER ATOPIC DERMATITIS AND RELATED CONDITIONS 12/01/2013 RODRIGUEZ CASHERO ACCOUNT SERVICE ASSOCIATE, ALICE N 698.9 UNSPECIFIED PRURITIC DISORDER 12/01/2013 RACIEL LEE EVANS R 691.8 OTHER ATOPIC DERMATITIS AND RELATED CONDITIONS 12/01/2013 RACIEL LEE EVANS R 698.9 UNSPECIFIED PRURITIC DISORDER 12/01/2013 FORD DO GUZMAN K 691.8 OTHER ATOPIC DERMATITIS AND RELATED CONDITIONS 12/01/2013 FORD DO GUZMAN K 698.9 UNSPECIFIED PRURITIC DISORDER 12/01/2013 RAJLEON LEE ORLY A 691.8 OTHER ATOPIC DERMATITIS AND RELATED CONDITIONS 12/01/2013 AR LEE ORLY A 698.9 UNSPECIFIED PRURITIC DISORDER 12/01/2013 RACEIL LEE EVANS R 691.8 OTHER ATOPIC DERMATITIS AND RELATED CONDITIONS 12/01/2013 RACIEL LEE, EVANS R 698.9 UNSPECIFIED PRURITIC DISORDER 12/01/2013 TERRI MUNROE APRN 691.8 OTHER ATOPIC DERMATITIS AND RELATED CONDITIONS 12/01/2013 TERRI MUNROE APRN 698.9 UNSPECIFIED PRURITIC DISORDER 12/01/2013 DEANNE LCMF, KENYETTA W 691.8 OTHER ATOPIC DERMATITIS AND RELATED CONDITIONS 12/01/2013 DEANNE LCMF, KENYETTA W 698.9 UNSPECIFIED PRURITIC DISORDER 12/01/2013 MADL ACCOUNT SERVICE ASSOCIATE, MILIND L 691.8 OTHER ATOPIC DERMATITIS AND RELATED CONDITIONS 12/01/2013 MADL ACCOUNT SERVICE ASSOCIATE, MILIND L 698.9 UNSPECIFIED PRURITIC DISORDER 12/01/2013 DEANNE LCMF, KENYETTA W 691.8 OTHER ATOPIC DERMATITIS AND RELATED CONDITIONS 12/01/2013 DEANNE LCMF, KENYETTA W 698.9 UNSPECIFIED PRURITIC DISORDER 12/01/2013 DIANE ANGELA M 691.8 OTHER ATOPIC DERMATITIS AND RELATED CONDITIONS 12/01/2013 DIANE ANGELA M 698.9 UNSPECIFIED PRURITIC DISORDER 12/17/2013 RACIEL LEE EVANS R 112.3 CANDIDIASIS OF SKIN AND NAILS 12/17/2013 RACIEL LEE EVANS R 388.30 TINNITUS UNSPECIFIED 12/17/2013 FORD DO, GUZMAN K 112.3 CANDIDIASIS OF SKIN AND NAILS 12/17/2013 FORD DO, GUZMAN K 388.30 TINNITUS UNSPECIFIED 12/17/2013 AR LEE ORLY A 112.3 CANDIDIASIS OF SKIN AND NAILS 12/17/2013 AR LEE ORLY A 388.30 TINNITUS UNSPECIFIED 12/17/2013 RACIEL LEE EVANS R 112.3 CANDIDIASIS OF SKIN AND NAILS 12/17/2013 RACIEL LEE EVANS R 388.30 TINNITUS UNSPECIFIED 12/17/2013 TERRI MUNROE APRN 112.3 CANDIDIASIS OF SKIN AND NAILS 12/17/2013 MUNROE ACCOUNT SERVICE ASSOCIATE, TERRI D 388.30 TINNITUS UNSPECIFIED 12/17/2013 DEANNE AVILAF, KENYETTA W 112.3 CANDIDIASIS OF SKIN AND NAILS 12/17/2013 DEANNE AVILAF, KENYETTA W 388.30 TINNITUS UNSPECIFIED 12/17/2013 BONNYL ACCOUNT SERVICE ASSOCIATE, MILIND L 112.3 CANDIDIASIS OF SKIN AND NAILS 12/17/2013 BONNYL ACCOUNT SERVICE ASSOCIATE, MILIND L 388.30 TINNITUS UNSPECIFIED 12/17/2013 DEANNE AVILAF, KENYETTA W 112.3 CANDIDIASIS OF SKIN AND NAILS 12/17/2013 DEANNE HOLCOMBMF, KENYETTA W 388.30 TINNITUS UNSPECIFIED 12/17/2013 DIANE ANGELA M 112.3 CANDIDIASIS OF SKIN AND NAILS 12/17/2013 DIANE ANGELA M 388.30 TINNITUS UNSPECIFIED 12/23/2013 KASSY DURANT E LEARNING DESIGNER Ot 719.40 12/23/2013 KASSY DURANT E LEARNING DESIGNER Ot 733.92 12/23/2013 KASSY DURANT E LEARNING DESIGNER Ot V57.1 04/12/2014 AR SARMIENTON, ORLY A 356.9 NEUROPATHY 04/12/2014 RAJELAINEE ACCOUNT SERVICE ASSOCIATE, ORLY A 369.9 UNSPECIFIED VISUAL LOSS 04/12/2014 AR SARMIENTON, ORLY A 783.0 ANOREXIA 04/12/2014 RACIEL SARMIENTON, EVANS R 356.9 NEUROPATHY 04/12/2014 RACIEL ACCOUNT SERVICE ASSOCIATE, EVANS R 369.9 UNSPECIFIED VISUAL LOSS 04/12/2014 RACIEL JESUS, EVANS R 783.0 ANOREXIA 04/12/2014 TERRI MUNROE APRN D 356.9 NEUROPATHY 04/12/2014 RONNI MUNROE APRNON D 369.9 UNSPECIFIED VISUAL LOSS 04/12/2014 RONNI MUNROE APRNON D 783.0 ANOREXIA 04/12/2014 DEANNE AVILAFKENYETTA W 356.9 NEUROPATHY 04/12/2014 DEANNE AVILAF, KENYETTA W 369.9 UNSPECIFIED VISUAL LOSS 04/12/2014 DEANNE AVILAF, KENYETTA W 783.0 ANOREXIA 04/12/2014 ANN-MARIE CHU APRNA L 356.9 NEUROPATHY 04/12/2014 VLAD ACCOUNT SERVICE ASSOCIATE, MILIND L 369.9 UNSPECIFIED VISUAL LOSS 04/12/2014 VLAD ACCOUNT SERVICE ASSOCIATE, MILIND L 783.0 ANOREXIA 04/12/2014 DEANNE HOLCOMBMF, KENYETTA W 356.9 NEUROPATHY 04/12/2014 DEANNE LCMF, KENYETTA W 369.9 UNSPECIFIED VISUAL LOSS 04/12/2014 DEANNE LCMF, KENYETTA W 783.0 ANOREXIA 04/12/2014 DIANE ANGELA M 356.9 NEUROPATHY 04/12/2014 DIANE ANGELA 369.9 UNSPECIFIED VISUAL LOSS 04/12/2014 DIANE ANGELA 783.0 ANOREXIA 04/26/2014 ORLY JOYNER APRN 381.81 EUSTACHIAN TUBE DYSFUNCTION 04/26/2014 EVANS SCHRADER APRN R 381.81 EUSTACHIAN TUBE DYSFUNCTION 04/26/2014 TERRI MUNROE APRN 381.81 EUSTACHIAN TUBE DYSFUNCTION 04/26/2014 DEANNE AVILAF, KENYETTA W 381.81 EUSTACHIAN TUBE DYSFUNCTION 04/26/2014 MILIND CHU APRN L 381.81 EUSTACHIAN TUBE DYSFUNCTION 04/26/2014 DEANNE HOLCOMBMF, KENYETTA W 381.81 EUSTACHIAN TUBE DYSFUNCTION 04/26/2014 DIANE ANGELA 381.81 EUSTACHIAN TUBE DYSFUNCTION 07/06/2014 АННА SCHRADER APRNINA R 692.9 CONTACT DERMATITIS AND OTHER ECZEMA UNSPECIFIED CAUSE 07/06/2014 TERRI MUNROE APRN 692.9 CONTACT DERMATITIS AND OTHER ECZEMA UNSPECIFIED CAUSE 07/06/2014 DEANNE AVILAF, KENYETTA Hernandez 692.9 CONTACT DERMATITIS AND OTHER ECZEMA UNSPECIFIED CAUSE 07/06/2014 MILIND CHU APRN 692.9 CONTACT DERMATITIS AND OTHER ECZEMA UNSPECIFIED CAUSE 07/06/2014 DEANNE AVILAF, KENYETTA W 692.9 CONTACT DERMATITIS AND OTHER ECZEMA UNSPECIFIED CAUSE 07/06/2014 DIANE ANGELA 692.9 CONTACT DERMATITIS AND OTHER ECZEMA UNSPECIFIED CAUSE 08/09/2014 DEANNE HOLCOMBMF, KENYETTA W 296.42 MO BIPOLAR I MANIC MODERATE 08/09/2014 MILIND CHU APRN L 296.42 MO BIPOLAR I MANIC MODERATE 08/09/2014 DEANNE LCMF, KENYETTA W 296.42 MO BIPOLAR I MANIC MODERATE 08/09/2014 CINTHIA CNS, DIANE M 296.42 MO BIPOLAR I MANIC MODERATE 08/12/2014 MILIND CHU APRN 311 DEPRESSIVE DISORDER NOT ELSEWHERE CLASSIFIED 08/12/2014 DEANNE LCMF, KENYETTA W 311 DEPRESSIVE DISORDER NOT ELSEWHERE CLASSIFIED 08/12/2014 CINTHIA PORCELAIN ENAMEL REPAIRER, DIANE M 311 DEPRESSIVE DISORDER NOT ELSEWHERE CLASSIFIED 09/07/2014 DEANNE LCMF, KENYETTA W 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 I MIXED MODERATE 09/07/2014 CINTHIA PORCELAIN ENAMEL REPAIRER, DIANE M 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 I MIXED MODERATE 09/08/2014 DEANNE LCMF, KENYETTA W 296.89 MO BIPOLAR II 09/08/2014 CINTHIA HOLT, DIANE M 296.89 MO BIPOLAR II 12/03/2014 Ot 368.9 12/03/2014 Ot 729.5 12/03/2014 Ot 781.2 12/03/2014 YESSENIA MILLARD ACCOUNT SERVICE ASSOCIATE Ot 719.47 12/03/2014 YESSENIA MILLARD ACCOUNT SERVICE ASSOCIATE Ot 845.00 12/03/2014 YESSENIA MILLARD ACCOUNT SERVICE ASSOCIATE Ot E000.8 12/03/2014 YESSENIA MILLARD ACCOUNT SERVICE ASSOCIATE Ot E888.9 03/15/2015 Ot 368.9 03/15/2015 Ot 729.5 03/15/2015 Ot 781.2 03/15/2015 Ot 368.9 03/15/2015 Ot 729.5 03/15/2015 Ot 781.2 11/24/2015 YESSENIA MILLARD ACCOUNT SERVICE ASSOCIATE Ot E66.9 OBESITY, UNSPECIFIED 11/24/2015 YESSENIA MILLARD ACCOUNT SERVICE ASSOCIATE Ot M23.91 UNSPECIFIED INTERNAL DERANGEMENT OF RIGH 11/24/2015 YESSENIA MILLARD ACCOUNT SERVICE ASSOCIATE Ot M79.7 FIBROMYALGIA 11/24/2015 YESSENIA MILLARD ACCOUNT SERVICE ASSOCIATE Ot R53.82 CHRONIC FATIGUE, UNSPECIFIED 11/25/2015 YESSENIA MILLARD ACCOUNT SERVICE ASSOCIATE Ot E66.9 OBESITY, UNSPECIFIED 11/25/2015 YESSENIA MILLARD ACCOUNT SERVICE ASSOCIATE Ot M23.91 UNSPECIFIED INTERNAL DERANGEMENT OF RIGH 11/25/2015 YESSENIA MILLARD ACCOUNT SERVICE ASSOCIATE Ot M79.7 FIBROMYALGIA 11/25/2015 YESSENIA MILLARD APRN Ot R53.82 CHRONIC FATIGUE, UNSPECIFIED 12/20/2015 MADL, MILIND L E LEARNING DESIGNER Ot M17.11 UNILATERAL PRIMARY OSTEOARTHRITIS, RIGHT 12/20/2015 MADL, MILIND L E LEARNING DESIGNER Ot M25.461 EFFUSION, RIGHT KNEE 12/20/2015 MADL, MILIND L E LEARNING DESIGNER Ot M25.561 PAIN IN RIGHT KNEE 12/23/2015 MADL, MILIND L E LEARNING DESIGNER Ot M17.11 UNILATERAL PRIMARY OSTEOARTHRITIS, RIGHT 12/23/2015 MADL, MILIND L E LEARNING DESIGNER Ot M25.461 EFFUSION, RIGHT KNEE 12/23/2015 MADL, MILIND L E LEARNING DESIGNER Ot M25.561 PAIN IN RIGHT KNEE 12/26/2015 MADL, MILIND L E LEARNING DESIGNER Ot M17.11 UNILATERAL PRIMARY OSTEOARTHRITIS, RIGHT 12/26/2015 MADL, MILIND L E LEARNING DESIGNER Ot M25.461 EFFUSION, RIGHT KNEE 12/26/2015 MADL, MILIND L E LEARNING DESIGNER Ot M25.561 PAIN IN RIGHT KNEE 12/27/2015 CAESAR DAVIES MD Ot H93.19 TINNITUS, UNSPECIFIED EAR 12/30/2015 CAESAR DAVIES MD Ot H93.19 TINNITUS, UNSPECIFIED EAR 01/06/2016 CAESAR DAVIES MD Ot H93.19 TINNITUS, UNSPECIFIED EAR 01/08/2016 YESSENIA MILLARD APRN Ot H92.01 OTALGIA, RIGHT EAR 01/08/2016 MADL, MILIND L E LEARNING DESIGNER Ot M17.11 UNILATERAL PRIMARY OSTEOARTHRITIS, RIGHT 01/08/2016 MADL, MILIND L E LEARNING DESIGNER Ot M25.461 EFFUSION, RIGHT KNEE 01/08/2016 MADL, MILIND L E LEARNING DESIGNER Ot M25.561 PAIN IN RIGHT KNEE 01/08/2016 CAESAR DAVIES MD Ot H93.19 TINNITUS, UNSPECIFIED EAR 01/10/2016 YESSENIA MILLARD APRN Ot H92.01 OTALGIA, RIGHT EAR 01/12/2016 CAESAR MAGAÑA MD Ot M23.200 DERANG OF UNSP LAT MENSC DUE TO OLD TEAR 01/12/2016 CAESAR MAGAÑA MD Ot Z01.818 ENCOUNTER FOR OTHER PREPROCEDURAL EXAMIN 01/12/2016 ZAFUTA MD, CAESAR P Ot Z11.2 ENCOUNTER FOR SCREENING FOR OTHER BACTER 01/13/2016 CAESAR MAGAÑA MD Ot M23.200 DERANG OF UNSP LAT MENSC DUE TO OLD TEAR 01/13/2016 CAESAR MAGAÑA MD, Ot Z01.818 ENCOUNTER FOR OTHER PREPROCEDURAL EXAMIN 01/13/2016 CAESAR MAGAÑA MD, Ot Z11.2 ENCOUNTER FOR SCREENING FOR OTHER BACTER 01/18/2016 CAESAR MAGAÑA MD, Ot M22.41 CHONDROMALACIA PATELLAE, RIGHT KNEE 01/18/2016 CAESAR MAGAÑA MD, Ot M23.221 DERANG OF POST HORN OF MEDIAL MENSC D/ T 01/19/2016 CAESAR MAGAÑA MD, Ot M22.41 CHONDROMALACIA PATELLAE, RIGHT KNEE 01/19/2016 CAESAR MAGAÑA MD, Ot M23.221 DERANG OF POST HORN OF MEDIAL MENSC D/ T Procedures Code Description [place] [address] ROUTINE VENIPUNCTURE 08/05/2012 03394 [facility] 08/05/2012 85963 HIV ANTIBODIES (RML) 08/05/2012 95276 CULTURE UROGENITAL 08/05/2012 43662 GC/CHLAM PROBE ([facility]) 08/05/2012 37450 TRICHOMONAS (IN-HOUSE) 08/05/2012 81739 PAP SMEAR 2012 Q0091 PAP SMEAR OBTAIN SMEAR 08/05/2012 41964 ROUTINE VENIPUNCTURE 07/09/2013 49998 XRAY KNEE RIGHT 3 VIEWS 07/09/2013 Orthopedi Terri Munroe 07/09/2013 26871 A1C (IN-HOUSE) 96465 CBC 07/09/2013 6355907 GFR CALC (RESULT ONLY) 07/09/2013 45904 CMP 07/09/2013 55698 LIPID PANEL 07/09 50805 TSH 07/09/2013 10196 JOINT INJECTION- LARGE JOINT (SPECIFY MEDCIN DESCRIPTION) 09/03/2013 J1040 DEPO MEDROL 80 MG INJ 09/29/2013 70114 THERAPUTIC INJ SQ/IM 09/29/2013 69646 THERAPUTIC INJ SQ/IM 12/01/2013 J1040 DEPO MEDROL 80 MG INJ 12/01/2013 79059 JOINT INJECTION- LARGE JOINT (SPECIFY MEDCIN DESCRIPTION) 01/07/2014 17759 CERUMEN REMOVAL 04/30/2014 05556 PSYCH DIAGNOSTIC EVALUATION 08/09/2014 61853 A1C (IN-HOUSE) 25100 PSYTX PT&/FAMILY 45 MINUTES 09/28/2014 77599 PSYCH DIAGNOSTIC EVALUATION 10/01/2014 Results Encounters ACCT No. Visit Date/Time Discharge Status Pt. Type Provider Facility Loc./Unit Complaint [id number] 09/28/2014 11:03:00 09/28/2014 23: 59:59 CLS Outpatient KENYETTA NORRIS [id number] 09/08/2014 10:00:00 09/08/2014 23: 59:59 CLS Outpatient DIANE ANGELA [id number] 08/12/2014 14:01:00 08/12/2014 23: 59:59 CLS Outpatient VLAD LEE MILIND L [id number] 08/09/2014 13:05:00 08/09/2014 23: 59:59 CLS Outpatient KENYETTA NORRIS [id number] 07/08/2014 13:35:00 07/08/2014 23: 59:59 CLS Outpatient TERRI MUNROE APRN [id number] 07/06/2014 16:39:00 07/06/2014 23: 59:59 CLS Outpatient EVANS SCHRADER APRN [id number] 04/26/2014 14:30:00 04/26/2014 23: 59:59 CLS Outpatient ORLY JOYNER APRN [id number] 01/07/2014 13:53:00 01/07/2014 23: 59:59 CLS Outpatient GUZMAN FORD DO [id number] 12/17/2013 09:35:00 12/17/2013 23: 59:59 CLS Outpatient EVANS SCHRADER APRN [id number] 12/01/2013 08:04:00 12/01/2013 23: 59:59 CLS Outpatient ALICE MARTINS APRN [id number] 11/10/2013 15:47:00 11/10/2013 23: 59:59 CLS Outpatient KASSY DURANT APRN [id number] 11/05/2013 12:30:00 11/05/2013 23: 59:59 CLS Outpatient GUZMAN FORD DO [id number] 09/29/2013 10:30:00 09/29/2013 23: 59:59 CLS Outpatient ALICE MARTINS APRN [id number] 09/15/2013 15:51:00 09/15/2013 23: 59:59 CLS Outpatient EVANS SCHRADER APRN [id number] 09/03/2013 15:05:00 09/03/2013 23: 59:59 CLS Outpatient GUZMAN FORD DO [id number] 09/01/2013 13:44:00 09/01/2013 23: 59:59 CLS Outpatient KASSY DURANT APRN S [id number] 07/09/2013 12:12:00 07/09/2013 23: 59:59 CLS Outpatient KASSY DURANT APRN S [id number] 10/01/2012 07:56:00 10/01/2012 23: 59:59 CLS Outpatient NOEMÍ MCCLURE MD, KIARA Rebolledo [id number] 08/05/2012 10:40:00 08/05/2012 23: 59:59 CLS Outpatient GUZMAN FORD DO Araceli [id number] 01/18/2016 11:38:00 2015 16:00:00 DIS Outpatient CAESAR MAGAÑA MD [facility] [id number] 01/12/2016 14:19:00 2015 15:00:00 DIS Outpatient CAESAR MAGAÑA MD Via [facility] PREOP [id number] 01/08/2016 10:33:00 2015 10:54:00 DIS Emergency YESSENIA MILLARD APRN [facility] ER [id number] 12/26/2015 09:03:00 2015 23:59:59 CLS Outpatient CAESAR DAVIES MD [facility] RAD [id number] 12/09/2015 17:10:00 2015 23:59:59 CLS Outpatient MILIND CHU [facility] RAD [id number] 11/24/2015 21:52:00 2015 23:13:00 DIS Emergency YESSENIA MILLARD APRN [facility] ER [id number] 12/03/2014 11:06:00 2014 13:32:00 DIS Emergency MILLARDYESSENIA APRN [facility] ER [id number] 12/03/2013 08:00:00 2013 16:46:00 DIS Outpatient KASSY DURANT [facility] REHAB [id number] 02/09/2013 08:55:00 2012 23:59:59 CLS Outpatient [id number] 12/03/2014 11:04:00 Document Registration [id number] 12/03/2014 11:04:00 Document Registration [id number] 10/15/2011 12:24:00 Document Registration [id number] 10/14/2011 18:07:00 Document Registration [id number] 08/12/2011 17:18:00 Document Registration [id number] 05/26/2011 18:09:00 Document Registration [id number] 12/12/2009 14:32:00 Document Registration
--- NOTE | 2017-04-16 10:41 | Progress Note-Pre Operative ---
Pre-Operative Progress Note H&P Reviewed The H&P was reviewed, patient examined and no changes noted. Date Seen by Provider: Apr 16, 2017 Time Seen by Provider: 10:41 Date H&P Reviewed: Apr 16, 2017 Time H&P Reviewed: 10:41 Pre-Operative Diagnosis: anemia RESHMA WETZEL DO Apr 16, 2017 10:41
[2017-04-16] MEDS ORDERED: HURRICAINE EXT TUBE (BENZOCAINE) XX PRN (10:45)
[2017-04-16] MEDS ORDERED: LACTATED RINGERS 1,000 ML IV STA (10:45)
[2017-04-16 10:53] VITALS: BP 128/89
[2017-04-16] MEDS ORDERED: MIDAZOLAM 2 MG/2 ML (VERSED) VIAL ONE (11:03)
[2017-04-16] MEDS ORDERED: PROPOFOL INJECTION 50 ML IV ONE ×2 (11:03→11:16)
--- NOTE | 2017-04-16 11:41 | Progress Note-Post Operative ---
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
--- NOTE | 2017-04-16 11:43 | Discharge Inst-Simple/Standard ---
Discharge Inst-Standard Patient Instructions/Follow Up Plan of Care/Instructions/FU: Follow up with your Primary care doctor. You need repeat colonoscopy at age 51 unless family history of colon cancer which would be earlier, talk to you doctor about when if this is needed. If you have change in condition you should be re-evaluated at that time. Activity as Tolerated: Yes Discharge Diet: Regular Diet RESHMA WETZEL DO Apr 16, 2017 11:43
[2017-04-16 11:55] VITALS: BP 131/95
[2017-04-16 12:20] VITALS: BP 132/90
[2017-04-16 13:00] VITALS: BP 132/90
--- NOTE | 2017-04-17 10:07 | OPERATIVE REPORT ---
DATE OF SERVICE: 04/16/2017 PREOPERATIVE DIAGNOSIS: Anemia. POSTOPERATIVE DIAGNOSIS: Normal esophagogastroduodenoscopy, normal colon. PROCEDURE: EGD and colonoscopy. SURGEON: Reshma Fowler DO ANESTHESIA: Per LAYOUT TECHNICIAN. ESTIMATED BLOOD LOSS: None. COMPLICATIONS: None. INDICATIONS: The patient is a 36-year-old female with a history of iron deficiency anemia. The patient's physicians' wished her to have an EGD and colonoscopy. She understands risks and benefits of procedures and wished to proceed with procedures. Consent was signed and on the chart. DESCRIPTION OF PROCEDURE: The patient was taken to the endoscopy suite, placed in the left lateral recumbent position. Timeout was performed. Scope was inserted in mouth, down into esophagus, stomach and into the duodenum without difficulty. There were no polyps, mass or ulcerations within the duodenum. The scope was slowly retracted back into the stomach, where it was further insufflated noting no erythematous changes. No polyps, masses or ulcerations. Scope was also retroflexed noting no other pathology. Scope was returned to its normal position, slowly withdrawn to back into the distal esophagus. There were no polyps, masses, ulcerations or erythematous changes. Scope was slowly retracted back until completely removed, noting no other pathology. Digital rectal exam was performed. There were no palpable polyps, masses or ulcerations. Scope was inserted in the rectum and advanced all the way to the cecum with minimal difficulty. Prep was adequate. Scope was then slowly retracted back. There were no polyps, mass or ulcerations in the cecum, ascending, transverse, descending and sigmoid colon. Once in the rectum, scope was also retroflexed noting no other pathology. Scope was returned to its normal position, slowly withdrawn until completely removed, noting no other pathology. The patient tolerated procedure well without any complications. She was taken to recovery room in stable condition. RECOMMENDATIONS: The patient will follow up with her primary care provider for continued monitoring of her anemia. If she has any change in condition, she should be reevaluated at that time for repeat endoscopy. Otherwise, she should have her normal screening guidelines unless family history of colon cancer. Job ID: [id number] DocumentID: [id number] Dictated Date: 04/16/2017 11:46:56 Residential Property Tax Appraiser Date: 04/16/2017 23:00:19 Dictated By: RESHMA FOWLER DO
== END 2017-04-16 13:00 | disposition home or self-care (01) ==
LOC: ENDO 10:14
PROVIDERS: ATTEND Surgery
DX: D50.9 Iron deficiency anemia, unspecified (principal); K21.9 Gastro-esophageal reflux disease without esophagitis; E66.01 Morbid (severe) obesity due to excess calories; Z68.43 Body mass index [BMI] 50.0-59.9, adult; F17.210 Nicotine dependence, cigarettes, uncomplicated; J45.909 Unspecified asthma, uncomplicated; M79.7 Fibromyalgia; F43.10 Post-traumatic stress disorder, unspecified; F31.9 Bipolar disorder, unspecified; Z79.899 Other long term (current) drug therapy

== ENCOUNTER 2017-06-08 20:01 | Emergency (ER) | payer MEDICAID ==
[~2017-06-08] VITALS: Ht 168.9 cm; Wt 156.5 kg
--- OUTSIDE RECORDS SUMMARY | 2017-06-08 20:08 | XMS REPORT | Continuity of Care Document ---
Author Author [employer] Organization [facility] Address Unknown Phone Unavailable Care Team Providers Care Fuel Injection Servicer Name Role Phone [employer] Unavailable Unavailable Problems Medications Allergies, Adverse Reactions, Alerts Immunizations Results Vital Signs Encounters Location Location Details Encounter Type Encounter Number Reason For Visit Attending Provider ADM Date DC Date Status Source OUTPATIENT [id number] JONI ACKERMAN 02/19/20172016 Active [facility] O 05/14/2017 Active [facility] OUTPATIENT [id number] 05/14/2017 Active [facility] Procedures Plan of Care Social History Assessment and Plan Family History Value Date Source Advance Directives Order Name Results Value Date Source
--- OUTSIDE RECORDS SUMMARY | 2017-06-08 20:09 | XMS REPORT | Encounter Summary ---
Author Author [facility] Organization [facility] Address Unknown Phone Unavailable Care Team Providers Care Mill Roll Operator Name Role Phone PCP Unavailable Reason for Referral * Consult, Test & Treat (Routine) Status Reason Specialty Diagnoses / Referred By Referred To Procedures Contact Contact No Auth Needed Specialty Obstetrics & Diagnoses Emerald Arita Ukp Purchasing Engineer Services Gynecology Menometrorrhagia 5TH FLOOR POD B Required N92.[address] (ICD-10-CM) - Blvd MED OFFICE BLDG Menometrorrhagia MS [address] [place] [address] Phone: Reason for Visit * Reason Comments Joint Pain Encounter Details Date Type Department Care Team Description 05/14/2017 Office Visit [facility] Emerald Arita MD Positive JOSE (antinuclear Physicians - Internal [address] antibody) (Primary Medicine [place] [address] Dx);Menometrorrhagia;Dry [address] [address] mouth;Fibromyalgia [address] MED [phone] [place] [address] Social History Tobacco Use Types Packs/Day Years Used Date Never Smoker Smokeless Tobacco: Never Used Alcohol Use Drinks/Week oz/Week Comments No 0 Standard 0.0 drinks three times a year now drinks or equivalent Sex Assigned at Date Recorded Not on file as of this encounter Last Filed Vital Signs Vital Sign Reading Time Taken Blood Pressure 124/71 05/14/2017 11:09 AM PHOTOGRAVURE PRESS OPERATOR Pulse 91 05/14/2017 11:09 AM PHOTOGRAVURE PRESS OPERATOR Temperature 36.7 C (98.1 F) 05/14/2017 11:09 AM PHOTOGRAVURE PRESS OPERATOR Respiratory Rate 18 05/14/2017 11:09 AM PHOTOGRAVURE PRESS OPERATOR Oxygen Saturation - - Inhaled Oxygen - - Concentration Weight 154.2 kg (340 lb) 05/14/2017 11:09 AM PHOTOGRAVURE PRESS OPERATOR Height 167.6 cm (5' 5.98") 05/14/2017 11:09 AM PHOTOGRAVURE PRESS OPERATOR Body Mass Index 54.9 05/14/2017 11:09 AM PHOTOGRAVURE PRESS OPERATOR in this encounter Functional Status Functional Status [...] impairment: No 08/01/2016 as of this encounter Instructions * Patient Instructions - Emerald Arita MD - 05/14/2017 11:00 AM PHOTOGRAVURE PRESS OPERATOR 1. Increase pilocarpine up to 10 mg three times per day. 2. Labs. 3. Ultrasound thyroid. in this encounter Progress Notes * Emerald Arita MD - 05/14/2017 11:00 AM PHOTOGRAVURE PRESS OPERATOR Formatting of this note may be different from the original. Date of Service: 05/14/2017 Subjective: Prisca Randall is a 37 y.o. female. History of Present Illness Ms. Randall returns for follow-up of a positive JOSE in the setting of history of fibromyalgia. Ms. Randall reports that she started having symptoms around age 25. Ultimately at age 30 she was diagnosed with fibromyalgia. She has been tried on multiple medications including venlafaxine, duloxetine, pregabalin and gabapentin. She feels like these have had more side effects and have not helped change her symptoms. She has been working very hard in terms of cognitive strategies including breathing and meditation approaches to help with her symptoms. She has been working with Dr. Mayfield here at in regard to fibromyalgia. She also met with Dr. Norman in Neurology who identified evidence of a mild sensorimotor polyneuropathy. It was recommended that she start with replacement for vitamin B12 and B6, in addition to vitamin D replacement. She has history of recurrent episodes of rash previously being diagnosed with eczema. She has significant difficulty with pain which limits her ability to walk for any distance. She did have 1 episode of pleurisy many years ago. This has not been a recurrent issue. She has very disrupted sleep. She does get recurrent mouth sores and these can include the roof of her mouth. She also describes areas of the salivary glands getting enlarged on the inside of her mouth which then she describes that she pops which seems to resolve the pain. She has not had a separate parotid gland swelling. She has significant dry eyes and dry mouth. She has difficulty with tinnitus and hearing loss which have been longstanding. She does report that the tips of her fingers can turn color out in the cold and are sensitive to the cold. She has no prior history of cytopenia. She has not had any prior issue of kidney disease. She underwent evaluation at rheumatology in July 2016 for a positive JOSE. She has a negative SABAS as well as normal complements. She had borderline anemia on CBC but no other leukopenia or thrombocytopenia. Creatinine and urinalysis were both normal. She did have a mildly elevated CRP. It was not felt that she had evidence for a rheumatologic condition. She was last seen in October 2016. At that visit, pilocarpine was initiated to help with the dryness symptoms. She has noticed some improvement in the dryness of the skin. She reports those still having nodules on the inside of the mouth that potentially are more prominent since starting the pilocarpine. She did undergo an EGD and colonoscopy since her last visit to follow-up iron deficiency anemia and no abnormalities were identified. She met with podiatry since last visit due to plantar fasciitis and stretches were recommended in addition to corticosteroid injection which has helped the symptoms significantly. She has been making intentional efforts of increasing her activity level. She is tried to work on improving her quadriceps strengthening and this has helped some of the patellofemoral symptoms. She is working with her primary care doctor about pursuing bariatric surgery, specifically gastric sleeve. She will wake up at night and have blurry vision in the left eye. This is unique to nighttime. It does not appear to be related to darkness but rather waking up and developed.. She reports difficulty with easy bruising. She also went to the emergency room for left sided chest wall pain that was quite severe. She then developed a rash in the same corresponding area but fortunately the pain has improved. She has been having very irregular menstrual cycles. PAST MEDICAL HISTORY 1. Hypertension. 2. Asthma. 3. Headaches. 4. Fibromyalgia. 5. Mild sensorimotor polyneuropathy. 6. Bipolar disorder. 7. Cholecystectomy. 8. Tubal ligation. 9. Knee arthroscopic procedure. 10. Loop electrosurgical excision procedure. SOCIAL HISTORY: Tobacco: Quit all use. Ethanol: 2-3 drinks per year. Illicit drugs: None. Lives with son and daughter. . Not currently working due to health issues. FAMILY HISTORY: Maternal cousin: Scleroderma. Maternal grandmother's sister with arthritis of unclear type. Mother: Heart disease. Review of Systems HENT: Positive for congestion, mouth sores, rhinorrhea and sore throat. Respiratory: Positive for chest tightness, shortness of breath and stridor. Cardiovascular: Positive for chest pain. Gastrointestinal: Positive for constipation and rectal pain. Endocrine: Positive for cold intolerance, heat intolerance, polydipsia and polyuria. Genitourinary: Positive for menstrual problem. Musculoskeletal: Positive for arthralgias, back pain, gait problem, joint swelling, myalgias and neck pain. Skin: Positive for rash. Neurological: Positive for speech difficulty, light-headedness, numbness and headaches. Hematological: Positive for adenopathy. Bruises/bleeds easily. Psychiatric/Behavioral: Positive for confusion, decreased concentration and sleep disturbance. The patient is nervous/anxious. All other systems reviewed and are negative. Objective: carBAMazepine (TEGRETOL) 200 mg tablet Take [...] Take 1 Tab by mouth daily. Vitals: 05/14/17 1109 BP: 124/71 Pulse: 91 Resp: 18 Temp: 36.7 C (98.1 F) TempSrc: Oral Weight: (!) 154.2 kg (340 lb) Height: 167.6 cm (65.98") Body mass index is 54.9 kg/(m^2). Physical Exam General: Alert and oriented, no acute distress. Eye: Clear conjunctiva and lids. HEENT: Moist mucous membranes with no oral or nasal ulcers. Lymph: No cervical or supraclavicular lymphadenopathy. CV: Regular rate and rhythm; no murmur/gallop/rub. Vessels: Normal radial and pedal pulses. Pulm: Clear to auscultation bilaterally. Abdomen: Soft, nontender, nondistended. No hepatosplenomegaly appreciated. Skin: Scattered ecchymoses. On left in inframammary region as well as slightly posterior, erythematous, papular rash. No malar rash, heliotrope rash, Gottron' s papules, sclerodactyly, telangiectasias, or psoriatic plaques. MSK:Diffuse myofascial tenderness. No synovitis appreciated of the upper or lower extremities including sternoclavicular joints, acromioclavicular joints, shoulders, elbows, wrists, MCPs, PIPs, DIPs, knees, and ankles. Assessment and Plan: #1 Positive JOSE, currently no evidence for connective tissue disease #2 Mild sensorimotor polyneuropathy #3 Fibromyalgia #4 Left plantar fasciitis - improved #5 Patellofemoral syndrome with associated quadriceps weakness - improved #6 Dryness symptoms #8 Polyuria It seems like the nighttime symptoms in her left are likely a reflection of dryness symptoms. We reviewed that it may be related to the eye potentially not closing completely at night which may explain why the symptoms are unique to the night. Would recommend follow-up eye exam. We discussed increasing the pilocarpine to maximum of 10 mg 3 times daily. We also discussed ocular lubricants. There is no clear evidence from the standpoint of evolution of connective tissue disease. We will plan to update laboratory monitoring today to evaluate for any evidence of organ dysfunction including CBC, CMP, and urinalysis. She will be pursuing potential bariatric surgery. We discussed the impact that will play from the standpoint of her joints. She describes being told in the past that she has an enlarged thyroid. Will plan for ultrasound, TSH, and TPO antibodies. Recommendations: 1. Increase pilocarpine to maximum 10 mg 3 times daily to help with dryness symptoms. 2. Update with information regarding bariatric surgery. 3. Labs as above. 4. Thyroid ultrasound. ADDENDUM Normal CBC, CMP, TSH. Elevated TPO antibodies - will need annual surveillance of thyroid hormones. UA with RBCs 0-2, protein negative. Will continue with plan as above. in this encounter Plan of Treatment Name Priority Associated Diagnoses Order Schedule US THYROID Routine Menometrorrhagia Expected: 05/14/2017 Positive JOSE (antinuclear (Approximate), Expires: antibody) 05/14/2018 Dry mouth Name Priority Associated Diagnoses Order Schedule AMB REFERRAL TO OB-ELECTRICAL SUPERINTENDENT Routine Menometrorrhagia Ordered: 05/14/2017 as of this encounter Results * URINALYSIS, MICROSCOPIC (05/14/2017 12:55 PM) Component Value Ref Range WBCs,UA 2-10 0 - 2 /HPF RBCs,UA 0-2 0 - 3 /HPF MucousUA TRACE Squamous Epithelial Cells 2-5 0 - 5 Specimen Performing Laboratory Urine MAIN LAB [address] [place] [address] * URINALYSIS DIPSTICK (05/14/2017 12:55 PM) Component Value Ref Range Color,UA YELLOW Turbidity,UA 1+ (A) CLEAR-CLEAR Specific [place]-Urine 1.024 1.003 - 1.035 pH,UA 6.0 5.0 - 8.0 Protein,UA NEG NEG-NEG Glucose,UA NEG NEG-NEG Ketones,UA NEG NEG-NEG Bilirubin,UA NEG NEG-NEG Blood,UA NEG NEG-NEG Urobilinogen,UA NORMAL NORM-NORMAL Nitrite,UA NEG NEG-NEG Leukocytes,UA 1+ (A) NEG-NEG Urine Ascorbic Acid, UA NEG NEG-NEG Specimen Performing Laboratory Urine MAIN LAB [address] [place] [address] * ANTI-THYROPEROXIDASE (MICROSOMAL)AB (05/14/2017 12:42 PM) Component Value Ref Range Microsomal AB, TPO 29.76 (H) <5.61 IU/ML Specimen Performing Laboratory Blood MAIN LAB [address] [place] [address] * TSH WITH FREE T4 REFLEX (05/14/2017 12:42 PM) Component Value Ref Range TSH 0.917 0.35 - 5.00 MCU/ML Specimen Performing Laboratory Blood MAIN LAB [address] [place] [address] * SED RATE (05/14/2017 12:42 PM) Component Value Ref Range Sed Rate -ESR 32 (H) 0 - 20 MM/HR Specimen Performing Laboratory Blood MAIN LAB [address] [place] [address] * COMPREHENSIVE METABOLIC PANEL (05/14/2017 12:42 PM) Component Value Ref Range Sodium 137 137 - 147 MMOL/L Potassium 4.0 3.5 - 5.1 MMOL/L Chloride 105 98 - 110 MMOL/L Glucose 91 70 - 100 MG/DL Blood Urea Nitrogen 9 7 - 25 MG/DL Creatinine 0.86 0.4 - 1.00 MG/DL Calcium 9.5 8.5 - 10.6 MG/DL Total Protein 7.4 6.0 - 8.0 G/DL Total Bilirubin 0.4 0.3 - 1.2 MG/DL Albumin 3.9 3.5 - 5.0 G/DL Alk Phosphatase 82 25 - 110 U/L AST (SGOT) 24 7 - 40 U/L CO2 24 21 - 30 MMOL/L ALT (SGPT) 23 7 - 56 U/L Anion Gap 8 3 - 12 eGFR Non >60 >60 [...] Specimen Performing Laboratory Blood MAIN LAB [address] [place] [address] * C REACTIVE PROTEIN (CRP) (05/14/2017 12:42 PM) Component Value Ref Range C-Reactive Protein 2.29 (H) <1.0 MG/DL Specimen Performing Laboratory Blood MAIN LAB [address] [place] [address] * CBC AND DIFF (05/14/2017 12:42 PM) Component Value Ref Range White Blood Cells 5.9 4.5 - 11.0 K/UL RBC 4.74 4.0 - 5.0 M/UL Hemoglobin 12.0 12.0 - 15.0 GM/DL Hematocrit 36.5 36 - 45 % MCV 77.0 (L) 80 - 100 FL MCH 25.3 (L) 26 - 34 PG MCHC 32.9 32.0 - 36.0 G/DL RDW 14.6 11 - 15 % Platelet Count 278 150 - 400 K/UL MPV 8.7 7 - 11 FL Neutrophils 63 41 - 77 % Lymphocytes 29 24 - 44 % Monocytes 7 4 - 12 % Eosinophils 1 0 - 5 % Basophils 0 0 - 2 % Absolute Neutrophil Count 3.70 1.8 - 7.0 K/UL Absolute Lymph Count 1.70 1.0 - 4.8 K/UL Absolute Monocyte Count 0.40 0 - 0.80 K/UL Absolute Eosinophil Count 0.10 0 - 0.45 K/UL Absolute Basophil Count 0.00 0 - 0.20 K/UL Specimen Performing Laboratory Blood MAIN LAB [address] [place] [address] in this encounter Visit Diagnoses Diagnosis Positive JOSE (antinuclear antibody) - Primary Other and unspecified nonspecific immunological findings Menometrorrhagia Excessive or frequent menstruation Dry mouth Disturbance of salivary secretion Fibromyalgia Mylagia and myositis, unspecified in this encounter
--- OUTSIDE RECORDS SUMMARY | 2017-06-08 20:09 | XMS REPORT | Encounter Summary ---
Author Author [facility] Organization [facility] Address Unknown Phone Unavailable Care Team Providers Care Die Welder Name Role Phone PCP Unavailable Reason for Referral * Consult, Test & Treat Status Reason Specialty Diagnoses / Referred By Referred To Procedures Contact Contact New Request Specialty General Surgery Diagnoses Emerald Arita, Services Morbid obesity MD Required with BMI of [address] ([facility]) [address] [place] [address] Reason for Visit * Reason Comments Results Encounter Details Date Type Department Care Team Description 05/21/2017 Telephone [facility] Emerald Arita MD Results Physicians - Internal [address] [facility] Medicine [place] [address] [place] [address] [address] [phone] [place] [address] Social History Tobacco Use Types [...] encounter Miscellaneous Notes * Telephone Encounter - Phani Scales - 05/21/2017 2:07 PM TREE DOCTOR Faxed results letter to Dr Emerson @ [phone]. Confirmation received @ 1:26pm * Telephone Encounter - Vero Cruz RN - 05/21/2017 10:50 AM TREE DOCTOR Left voicemail advising patient per referral and recommendations below, advised patient if she does not receive a call in 1-2 weeks regarding Bariatric surgery referral to contact [phone]. * Telephone Encounter - Emerald Arita MD - 05/21/2017 10:37 AM TREE DOCTOR I have placed the Bariatric surgery referral. I would agree with the PCP evaluation for the skin rash. Could consider Dermatology referral if persists. * Telephone Encounter - Vero Cruz RN - 05/21/2017 9:23 AM TREE DOCTOR Called and advised patient per results and recommendations below, patient verbalized understanding, will follow-up with PCP to monitor thyroid hormones yearly. Patient inquiring if she can have a referral to for bariatric surgery as other places are requiring a large amount of money up front. Patient also states that the rash that she had while at her appointment 2016 has gotten worse, she is going to the walk-in clinic at her PCP's office for this today. Result letter sent to Admin to be faxed to PCP. Routing to Dr. Arita as FYI for rash and for possible bariatric surgery referral. ----- Message from Emerald Arita MD sent at 05/16/2017 10:18 AM TREE DOCTOR ----- Dear Vero, Could I please get your help to update Ms. Randall regarding the results. She does have evidence of thyroid antibodies (called TPO antibodies). The actual thyroid hormones are normal. When individuals have thyroid antibodies, they are at risk for developing thyroid disease in the future and she should have her thyroid hormones checked once per year. The hemoglobin has now improved to 12.0 which is normal. The remaining blood counts were normal. Kidney and liver tests were normal. The urinalysis was did not demonstrate any blood or protein. The inflammation markers are stable, the ESR is slightly improved and the CRP slightly higher. Please have her keep us posted about the bariatric surgery plan. Thank you so much, Emerald in this encounter Plan of Treatment Name Priority Associated Diagnoses Order Schedule AMB REFERRAL TO BARIATRIC SURGERY Routine Morbid obesity with BMI Ordered: 05/21/2017 of 50.0-59.9, adult (HCC) as of this encounter Visit Diagnoses Diagnosis Morbid obesity with BMI of 50.0-59.9, adult (HCC) - Primary Morbid obesity in this encounter
--- OUTSIDE RECORDS SUMMARY | 2017-06-08 20:09 | XMS REPORT | Encounter Summary ---
Author Author [facility] Organization [facility] Address Unknown Phone Unavailable Care Team Providers Care Housekeeping Coordinator Name Role Phone PCP Unavailable Reason for Visit * Reason Comments Follow-up Phone Call throid ultrasound Encounter Details Date Type Department Care Team Description 05/30/2017 Telephone [facility] Emerald Arita MD Follow-up Phone Call Physicians - Internal [address] (throid ultrasound) Medicine [address] [place] [address] MED [phone] [place] [address] Social History Tobacco Use Types [...] Telephone Encounter - Vero Cruz RN - 05/31/2017 9:31 AM REPORTS DEVELOPER Received voicemail from [facility] in [facility] to be faxed to [phone], to schedule p: [phone], , Tax ID: [id number]. Called [employer], no pre-certification necessary for Thyroid Ultrasound CPT: 26976. Ultrasound order faxed to [facility]. Called and notified patient, she will call and schedule ultrasound, will have results sent to us. * Telephone Encounter - Vero Cruz RN - 05/30/2017 3:53 PM REPORTS DEVELOPER Patient left voicemail inquiring if thyroid ultrasound order was still valid. Called patient, states she would like to complete the ultrasound at [facility] in [place] (p: [phone]). Left voicemail for [facility] requesting return call to follow-up on insurance information for the facility, once obtained, will then proceed with prior authorization through insurance. in this encounter Plan of Treatment Not on fileas of this encounter Visit Diagnoses Not on filein this encounter
--- OUTSIDE RECORDS SUMMARY | 2017-06-08 20:09 | XMS REPORT | Encounter Summary ---
Author Author [facility] Organization [facility] Address Unknown Phone Unavailable Care Team Providers Care Index Clerk Name Role Phone PCP Unavailable Encounter Details Date Type Department Care Team Description 05/14/2017 [facility] Emerald Arita MD Other specified abnormal Encounter [address] [address] [address] [place] [address] [phone] Social History Tobacco Use Types Packs/Day Years [...] on fileas of this encounter Results * URINALYSIS, MICROSCOPIC (05/14/2017 12:55 PM) Component Value Ref Range WBCs,UA 2-10 0 - 2 /HPF RBCs,UA 0-2 0 - 3 /HPF MucousUA TRACE Squamous Epithelial Cells 2-5 0 - 5 Specimen Performing Laboratory Urine MAIN LAB [address] [place] [address] * URINALYSIS DIPSTICK (05/14/2017 12:55 PM) Component Value Ref Range Color,UA YELLOW Turbidity,UA 1+ (A) CLEAR-CLEAR Specific [place]-Urine 1.024 1.003 - 1.035 pH,UA 6.0 5.0 - 8.0 Protein,UA NEG NEG-NEG Glucose,UA NEG NEG-NEG Ketones,UA NEG NEG-NEG Bilirubin,UA NEG NEG-NEG Blood,UA NEG NEG-NEG Urobilinogen,UA NORMAL NORM-NORMAL Nitrite,UA NEG NEG-NEG Leukocytes,UA 1+ (A) NEG-NEG Urine Ascorbic Acid, UA NEG NEG-NEG Specimen Performing Laboratory Urine MAIN LAB [address] [place] [address] * ANTI-THYROPEROXIDASE (MICROSOMAL)AB (05/14/2017 12:42 PM) Component Value Ref Range Microsomal AB, TPO 29.76 (H) <5.61 IU/ML Specimen Performing Laboratory Blood MAIN LAB [address] [place] [address] * TSH WITH FREE T4 REFLEX (05/14/2017 12:42 PM) Component Value Ref Range TSH 0.917 0.35 - 5.00 MCU/ML Specimen Performing Laboratory Blood MAIN LAB [address] [place] [address] * SED RATE (05/14/2017 12:42 PM) Component Value Ref Range Sed Rate -ESR 32 (H) 0 - 20 MM/HR Specimen Performing Laboratory Blood MAIN LAB [address] [place] [address] * COMPREHENSIVE METABOLIC PANEL (05/14/2017 12:42 PM) [...] questions. Specimen Performing Laboratory Blood MAIN LAB [address] [place] [address] * C REACTIVE PROTEIN (CRP) (05/14/2017 12:42 PM) Component Value Ref Range C-Reactive Protein 2.29 (H) <1.0 MG/DL Specimen Performing Laboratory Blood [facility] MAIN LAB [address] [place] [address] * CBC AND DIFF (05/14/2017 12:42 PM) [...] Specimen Performing Laboratory Blood MAIN LAB [address] [place] [address] in this encounter Visit Diagnoses Diagnosis Menometrorrhagia Excessive or frequent menstruation Positive JOSE (antinuclear antibody) Other and unspecified nonspecific immunological findings Dry mouth Disturbance of salivary secretion in this encounter Admitting Diagnoses Diagnosis Other specified abnormal immunological findings in serum Excessive and frequent menstruation with irregular cycle Dry mouth, unspecified in this encounter
--- OUTSIDE RECORDS SUMMARY | 2017-06-08 20:09 | XMS REPORT | Clinical Summary ---
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 If you do not see the information that you expected, contact Release of Information in the Health Information Management department at [phone] for further assistance in locating additional records.[facility] Allergies Active Allergy Reactions Severity Noted Date [...] 12/21/2015 Bipolar affective disorder (HCC) 08/19/2007 Alcoholism ([facility]) 08/19/2007 Obesity 08/19/2007 Encounters Date Type Specialty Care Team Description 05/30/2017 Telephone Allergy,Immunology and Emerald Arita MD Follow- up Phone Call Rheumatology (throid ultrasound) 05/21/2017 Telephone Allergy,Immunology and Emerald Arita MD Results Rheumatology 05/14/2017 Hospital Lab Emerald Arita MD Other specified abnormal Encounter immunological findings in serum 05/14/2017 Office Visit Allergy,Immunology and Emerald Arita MD Positive JOSE (antinuclear Rheumatology antibody) (Primary Dx);Menometrorrhagia;Dry mouth;Fibromyalgia from Last 3 Months Family History Medical [...] Taken Blood Pressure 124/71 05/14/2017 11:09 AM [facility] Pulse 91 05/14/2017 11:09 AM [facility] Temperature 36.7 C (98.1 F) 05/14/2017 11:09 AM [facility] Respiratory Rate 18 05/14/2017 11:09 AM [facility] Oxygen Saturation 100% 02/19/2017 10:31 AM CDT Inhaled Oxygen - - Concentration Weight 154.2 kg (340 lb) 05/14/2017 11:09 AM [facility] Height 167.6 cm (5' 5.98") 05/14/2017 11:09 AM [facility] Body Mass Index 54.9 05/14/2017 11:09 AM [facility] Plan of Treatment Health Maintenance Due Date Last Done Comments PHYSICAL (COMPREHENSIVE) 1988 EXAM PERTUSSIS VACCINE 1992 TETANUS VACCINE 1998 CERVICAL CANCER SCREENING 2011 INFLUENZA VACCINE 01/29/2017 Results * URINALYSIS, MICROSCOPIC (05/14/2017 12:55 PM) Component Value Ref Range WBCs,UA 2-10 0 - 2 /HPF RBCs,UA 0-2 0 - 3 /HPF MucousUA TRACE Squamous Epithelial Cells 2-5 0 - 5 Specimen Performing Laboratory Urine [facility]IN [facility] [address] [place] [id number] * URINALYSIS DIPSTICK (05/14/2017 12:55 PM) Component Value Ref Range Color,UA YELLOW Turbidity,UA 1+ (A) CLEAR-CLEAR Specific Lyons-Urine 1.024 1.003 - 1.035 pH,UA 6.0 5.0 - 8.0 Protein,UA NEG NEG-NEG Glucose,UA NEG NEG-NEG Ketones,UA NEG NEG-NEG Bilirubin,UA NEG NEG-NEG Blood,UA NEG NEG-NEG Urobilinogen,UA NORMAL NORM-NORMAL Nitrite,UA NEG NEG-NEG Leukocytes,UA 1+ (A) NEG-NEG Urine Ascorbic Acid, UA NEG NEG-NEG Specimen Performing Laboratory Urine [facility] [address] [place] [id number] * TSH WITH FREE T4 REFLEX (05/14/2017 12:42 PM) Component Value Ref Range TSH 0.917 0.35 - 5.00 MCU/ML Specimen Performing Laboratory Blood MAIN LAB [address] [place] [address] * ANTI-THYROPEROXIDASE (MICROSOMAL)AB (05/14/2017 12:42 PM) Component Value Ref Range Microsomal AB, TPO 29.76 (H) <5.61 IU/ML Specimen Performing Laboratory Blood [facility] [address] [place] [id number] * SED RATE (05/14/2017 12:42 PM) Component Value Ref Range Sed Rate -ESR 32 (H) 0 - 20 MM/HR Specimen Performing Laboratory Blood [facility] [address] [place] [id number] * CBC AND DIFF (05/14/2017 12:42 PM) [...] K/UL Specimen Performing Laboratory Blood [facility] [address] [place] [id number] * C REACTIVE PROTEIN (CRP) (05/14/2017 12:42 PM) Component Value Ref Range C-Reactive Protein 2.29 (H) <1.0 MG/DL Specimen Performing Laboratory Blood [facility] [address] [place] [id number] * COMPREHENSIVE METABOLIC PANEL (05/14/2017 12:42 PM) [...] Performing Laboratory Blood [facility] [address] [place] [address] from Last 3 Months
--- OUTSIDE RECORDS SUMMARY | 2017-06-08 20:15 | XMS REPORT | Continuity of Care Document ---
Author Author [facility] Address Unknown Phone Unavailable Allergies Active Description Code Type Severity Reaction Onset Reported/Identified Relationship to Patient Clinical Status Yes meperidine [id number] Drug Allergy Mild SWELLING 12/12/2009 Yes Demerol [...] Drug Allergy N/A N/A 07/09/2013 Yes gabapentin [id number] Drug Allergy Unknown N/A 11/24/2015 Yes NAPROXYN NAPROXYN Unknown ABD PAIN AND VO 11/24/2015 Yes pregabalin [id number] Drug Allergy Unknown N/A 11/24/2015 Yes venlafaxine [id number] Drug Allergy Unknown N/A 11/24/2015 Yes naproxen [id number] Drug Allergy Unknown NAUSEA 01/12/2016 Medications Problems Date Dx Coded Attending Type Code Diagnosis Diagnosed By 12/12/2009 Ot 131.01 12/12/2009 Ot 614.9 12/12/2009 Ot 625.9 12/24/2009 GUZMAN FORD DO 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 12/24/2009 GUMZAN FORD DO 625.3 DYSMENORRHEA 12/24/2009 GUZMAN FORD DO 789.00 ABDOMINAL PAIN UNSPECIFIED SITE 12/24/2009 KIARA WILLAMS MD 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 12/24/2009 EASH KAMI MD, KIARA A 625.3 DYSMENORRHEA 12/24/2009 NOEMÍ MCCLURE MD, KIARA A 789.00 ABDOMINAL PAIN UNSPECIFIED SITE 12/24/2009 CARLEEN MACHINE II CUTTER, KASSY S 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 12/24/2009 CARLEEN MACHINE II CUTTER, KASSY S 625.3 DYSMENORRHEA 12/24/2009 CARLEEN MACHINE II CUTTER, KASSY S 789.00 ABDOMINAL PAIN UNSPECIFIED SITE 12/24/2009 CARLEEN MACHINE II CUTTER, KASSY S 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 12/24/2009 CARLEEN MACHINE II CUTTER, KASSY S 625.3 DYSMENORRHEA 12/24/2009 CARLEEN MACHINE II CUTTER, KASSY S 789.00 ABDOMINAL PAIN UNSPECIFIED SITE 12/24/2009 FORD DO, GUZMAN K 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 12/24/2009 FORD DO, GUZMAN K 625.3 DYSMENORRHEA 12/24/2009 FORD DO, GUZMAN K 789.00 ABDOMINAL PAIN UNSPECIFIED SITE 12/24/2009 RACIEL MACHINE II CUTTER, EVANS R 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 12/24/2009 RACIEL MACHINE II CUTTER, EVANS R 625.3 DYSMENORRHEA 12/24/2009 RACIEL MACHINE II CUTTER, EVANS R 789.00 ABDOMINAL PAIN UNSPECIFIED SITE 12/24/2009 RODRIGUEZ CASHERO MACHINE II CUTTER, ALICE N 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 12/24/2009 RODRIGUEZ CASHERO MACHINE II CUTTER, ALICE N 625.3 DYSMENORRHEA 12/24/2009 RODRIGUEZ CASHERO MACHINE II CUTTER, ALICE N 789.00 ABDOMINAL PAIN UNSPECIFIED SITE 12/24/2009 FORD DO, GUZMAN K 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 12/24/2009 FORD DO, GUZMAN K 625.3 DYSMENORRHEA 12/24/2009 FORD DO, GUZMAN K 789.00 ABDOMINAL PAIN UNSPECIFIED SITE 12/24/2009 CARLEEN MACHINE II CUTTER, KASSY S 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 12/24/2009 CARLEEN MACHINE II CUTTER, KASSY S 625.3 DYSMENORRHEA 12/24/2009 CARLEEN MACHINE II CUTTER, KASSY S 789.00 ABDOMINAL PAIN UNSPECIFIED SITE 12/24/2009 RODRIGUEZ CASHALVAREZ LEE, ALICE N 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 12/24/2009 RODRIGUEZ JESSICAALVAREZ LEE, ALICE N 625.3 DYSMENORRHEA 12/24/2009 RODRIGUEZ CRISTY MACHINE II CUTTER, ALICE N 789.00 ABDOMINAL PAIN UNSPECIFIED SITE [...] KENYETTA Hernandez 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 12/24/2009 DEANNE AVILAF, KENYETTA W 625.3 DYSMENORRHEA 12/24/2009 DEANNE AVILAF, KENYETTA W 789.00 ABDOMINAL PAIN UNSPECIFIED SITE 12/24/2009 MILIND CHU APRN L 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 12/24/2009 MADL MACHINE II CUTTER, MILIND L 625.3 DYSMENORRHEA 12/24/2009 MADL MACHINE II CUTTER, MILIND L 789.00 ABDOMINAL PAIN UNSPECIFIED SITE 12/24/2009 DEANNE LCMF, KENYETTA W 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 12/24/2009 DEANNE LCMF, KEYNETTA W 625.3 DYSMENORRHEA 12/24/2009 DEANNE AICHAMF, KENYETTA W 789.00 ABDOMINAL PAIN UNSPECIFIED SITE 12/24/2009 CINTHIA GAS TORCH BRAZIER, DIANE M 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 12/24/2009 CINTHIA GAS TORCH BRAZIER, DIANE M 625.3 DYSMENORRHEA 12/24/2009 CINTHIA GAS TORCH BRAZIER, DIANE M 789.00 ABDOMINAL PAIN UNSPECIFIED SITE 01/04/2010 LOGAN DO, GUZMAN K V72.31 FEDERAL MEDIATOR EXAM, ROUTINE 01/04/2010 NOEMÍ MCCLURE MD, KIARA A V72.31 FEDERAL MEDIATOR EXAM, ROUTINE 01/04/2010 CARLEEN LEE, KASSY S V72.31 FEDERAL MEDIATOR EXAM, ROUTINE 01/04/2010 ROXANE DURANT APRNNDA S V72.31 FEDERAL MEDIATOR EXAM, ROUTINE 01/04/2010 FORD DO, GUZMAN K V72.31 FEDERAL MEDIATOR EXAM, ROUTINE 01/04/2010 RACIEL LEE EVANS R V72.31 FEDERAL MEDIATOR EXAM, ROUTINE 01/04/2010 MICHAEL MUNIZ MACHINE II CUTTEROMKAR BillCY N V72.31 FEDERAL MEDIATOR EXAM, ROUTINE 01/04/2010 FORD DO, GUZMAN K V72.31 FEDERAL MEDIATOR EXAM, ROUTINE 01/04/2010 CARLEEN MACHINE II CUTTER, KASSY S V72.31 FEDERAL MEDIATOR EXAM, ROUTINE 01/04/2010 MICHAEL MUNIZ MACHINE II CUTTER ALICE N V72.31 FEDERAL MEDIATOR EXAM, ROUTINE 01/04/2010 RACIEL MACHINE II CUTTER, EVANS R V72.31 FEDERAL MEDIATOR EXAM, ROUTINE 01/04/2010 FORD DO, GUZMAN K V72.31 FEDERAL MEDIATOR EXAM, ROUTINE 01/04/2010 ORLY JOYNER APRN A V72.31 FEDERAL MEDIATOR EXAM, ROUTINE 01/04/2010 RACIEL MACHINE II CUTTER, EVANS R V72.31 FEDERAL MEDIATOR EXAM, ROUTINE 01/04/2010 TERRI MUNROE APRN V72.31 FEDERAL MEDIATOR EXAM, ROUTINE 01/04/2010 DEANNE HOLCOMBMF, KENYETTA W V72.31 FEDERAL MEDIATOR EXAM, ROUTINE 01/04/2010 VLAD MACHINE II CUTTER, MILIND Andre V72.31 FEDERAL MEDIATOR EXAM, ROUTINE 01/04/2010 DEANNE HOLCOMBMF, KENYETTA W V72.31 FEDERAL MEDIATOR EXAM, ROUTINE 01/04/2010 CINTHIA JONATHON, DIANE Pham V72.31 FEDERAL MEDIATOR EXAM, ROUTINE 01/09/2010 FORD DO, GUZMAN K [...] MD, KIARA A 788.42 POLYURIA 01/09/2010 CARLEEN MACHINE II CUTTER, KASSY S 278.00 OBESITY, UNSPECIFIED 01/09/2010 CARLEEN MACHINE II CUTTER, KASSY S 782.3 Edema 01/09/2010 CARLEEN MACHINE II CUTTER, KASSY S 783.5 POLYDIPSIA 01/09/2010 CARLEEN MACHINE II CUTTER, KASSY S 788.42 POLYURIA 01/09/2010 CARLEEN MACHINE II CUTTER, KASSY S 278.00 OBESITY, UNSPECIFIED 01/09/2010 CARLEEN MACHINE II CUTTER, KASSY S 782.3 Edema 01/09/2010 CARLEEN MACHINE II CUTTER, KASSY S 783.5 POLYDIPSIA 01/09/2010 CARLEEN MACHINE II CUTTER, KASSY S 788.42 POLYURIA 01/09/2010 FORD DO, GUZMAN K 278.00 OBESITY, UNSPECIFIED 01/09/2010 FORD DO, GUZMAN K 782.3 Edema 01/09/2010 FORD DO, GUZMAN K 783.5 POLYDIPSIA 01/09/2010 FORD DO, GUZMAN K 788.42 POLYURIA 01/09/2010 EVANS SCHRADER APRN R 278.00 OBESITY, UNSPECIFIED 01/09/2010 RACIEL LEE EVANS R 782.3 Edema 01/09/2010 RACIEL MACHINE II CUTTER, EVANS R 783.5 POLYDIPSIA 01/09/2010 RACIEL MACHINE II CUTTER, EVANS R 788.42 POLYURIA 01/09/2010 MICHAEL MUNIZ APRN, ALICE N 278.00 OBESITY, UNSPECIFIED 01/09/2010 MICHAEL MUNIZ MACHINE II CUTTER, ALICE N 782.3 Edema 01/09/2010 MICHAEL MUNIZ MACHINE II CUTTER, ALICE N 783.5 POLYDIPSIA 01/09/2010 MICHAEL MUNIZ APRN, ALICE N 788.42 POLYURIA 01/09/2010 FORD DO, GUZMAN K 278.00 OBESITY, UNSPECIFIED 01/09/2010 FORD DO, GUZMAN K 782.3 Edema 01/09/2010 FORD DO, GUZMAN K 783.5 POLYDIPSIA 01/09/2010 FORD DO, GUZMAN K 788.42 POLYURIA 01/09/2010 CARLEEN MACHINE II CUTTER, KASSY S 278.00 OBESITY, UNSPECIFIED 01/09/2010 CARLEEN MACHINE II CUTTER, KASSY S 782.3 Edema 01/09/2010 CARLEEN MACHINE II CUTTER, KASSY S 783.5 POLYDIPSIA 01/09/2010 CARLEEN MACHINE II CUTTER, KASSY S 788.42 POLYURIA 01/09/2010 RODRIGUEZKARTIK MUNIZ APRN, ALICE N 278.00 OBESITY, UNSPECIFIED 01/09/2010 RODRIGUEZKARTIK MUNIZ APRN, ALICE N 782.3 Edema 01/09/2010 MICHAEL MUNIZ APRN, ALICE N 783.5 POLYDIPSIA 01/09/2010 RODRIGUEZKARTIK MUNIZ APRN, ALICE N 788.42 POLYURIA 01/09/2010 RACIEL MACHINE II CUTTER, EVANS R 278.00 OBESITY, UNSPECIFIED 01/09/2010 RACIEL MACHINE II CUTTER, EVANS R 782.3 Edema 01/09/2010 RACIEL MACHINE II CUTTER, EVANS R 783.5 POLYDIPSIA 01/09/2010 RACIEL MACHINE II CUTTER, EVANS R 788.42 POLYURIA 01/09/2010 FORD DO, GUZMAN K 278.00 OBESITY, UNSPECIFIED 01/09/2010 FORD DO, GUZMAN K 782.3 Edema 01/09/2010 FORD DO, GUZMAN K 783.5 POLYDIPSIA 01/09/2010 FORD DO, GUZMAN K 788.42 POLYURIA 01/09/2010 RAJOTTE MACHINE II CUTTER, ORLY A 278.00 OBESITY, UNSPECIFIED 01/09/2010 RAJOTTE MACHINE II CUTTER, ORLY A 782.3 Edema 01/09/2010 RAJOTTE MACHINE II CUTTER, ORLY A 783.5 POLYDIPSIA 01/09/2010 RAJOTTE MACHINE II CUTTER, ORLY A 788.42 POLYURIA 01/09/2010 RACIEL MACHINE II CUTTER, EVANS R 278.00 OBESITY, UNSPECIFIED 01/09/2010 RACIEL MACHINE II CUTTER, EVANS R 782.3 Edema 01/09/2010 RACIEL MACHINE II CUTTER, EVANS R 783.5 POLYDIPSIA 01/09/2010 RACIEL MACHINE II CUTTER, EVANS R 788.42 POLYURIA 01/09/2010 MUNROE MACHINE II CUTTER, TERRI D 278.00 OBESITY, UNSPECIFIED 01/09/2010 MUNROE MACHINE II CUTTER, TERRI D 782.3 Edema 01/09/2010 MUNROE MACHINE II CUTTER, TERRI D 783.5 POLYDIPSIA 01/09/2010 MUNROE MACHINE II CUTTER, TERRI D 788.42 POLYURIA 01/09/2010 DEANNE LCMF, KENYETTA W 278.00 OBESITY, UNSPECIFIED 01/09/2010 DEANNE LCMF, KENYETTA W 782.3 Edema 01/09/2010 DEANNE LCMF, KENYETTA W 783.5 POLYDIPSIA 01/09/2010 DEANNE LCMF, KENYETTA W 788.42 POLYURIA 01/09/2010 MADL MACHINE II CUTTER, MILIND L 278.00 OBESITY, UNSPECIFIED 01/09/2010 MADL MACHINE II CUTTER, MILIND L 782.3 Edema 01/09/2010 MADL MACHINE II CUTTER, MILIND L 783.5 POLYDIPSIA 01/09/2010 MADL MACHINE II CUTTER, MILIND L 788.42 POLYURIA 01/09/2010 DEANNE LCMF, KENYETTA W 278.00 OBESITY, UNSPECIFIED 01/09/2010 DEANNE LCMF, KENYETTA W 782.3 Edema 01/09/2010 DEANNE LCMF, KENYETTA W 783.5 POLYDIPSIA 01/09/2010 DEANNE LCMF, KENYETTA W 788.42 POLYURIA 01/09/2010 DIANE ANGELA 278.00 OBESITY, UNSPECIFIED 01/09/2010 CINTHIA GAS TORCH BRAZIER, DIANE M 782.3 Edema 01/09/2010 CINTHIA GAS TORCH BRAZIER, DIANE M 783.5 POLYDIPSIA 01/09/2010 CINTHIA GAS TORCH BRAZIER, DIANE M 788.42 POLYURIA 01/12/2010 FORD DO, GUZMAN K 268.9 VITAMIN D DEFICIENCY 01/12/2010 FORD DO, GUZMAN K 285.9 ANEMIA UNSPECIFIED 01/12/2010 NOEMÍ MCCLURE MD, KIARA A 268.9 VITAMIN D DEFICIENCY 01/12/2010 NOEMÍ MCCLURE MD, KIARA A 285.9 ANEMIA UNSPECIFIED 01/12/2010 CARLEEN MACHINE II CUTTER, KASSY S 268.9 VITAMIN D DEFICIENCY 01/12/2010 CARLEEN MACHINE II CUTTER, KASSY S 285.9 ANEMIA UNSPECIFIED 01/12/2010 CARLEEN MACHINE II CUTTER, KASSY S 268.9 VITAMIN D DEFICIENCY 01/12/2010 CARLEEN MACHINE II CUTTER, KASSY S 285.9 ANEMIA UNSPECIFIED 01/12/2010 FORD DO, GUZMAN K 268.9 VITAMIN D DEFICIENCY 01/12/2010 FORD DO, GUZMAN K 285.9 ANEMIA UNSPECIFIED 01/12/2010 RACIEL MACHINE II CUTTER, EVANS R 268.9 VITAMIN D DEFICIENCY 01/12/2010 RACIEL MACHINE II CUTTER, EVANS R 285.9 ANEMIA UNSPECIFIED 01/12/2010 MICHAEL CASHERO MACHINE II CUTTER, ALICE N 268.9 VITAMIN D DEFICIENCY 01/12/2010 RODRIGUEZ CASHERO MACHINE II CUTTER, ALICE N 285.9 ANEMIA UNSPECIFIED 01/12/2010 FORD DO, GUZMNA K 268.9 VITAMIN D DEFICIENCY 01/12/2010 FORD DO, GUZMAN K 285.9 ANEMIA UNSPECIFIED 01/12/2010 CARLEEN MACHINE II CUTTER, KASSY S 268.9 VITAMIN D DEFICIENCY 01/12/2010 CARLEEN MACHINE II CUTTER, KASSY S 285.9 ANEMIA UNSPECIFIED 01/12/2010 RODRIGUEZ CASHERO MACHINE II CUTTER, ALICE N 268.9 VITAMIN D DEFICIENCY 01/12/2010 RODRIGUEZ CASHERO MACHINE II CUTTER, ALICE N 285.9 ANEMIA UNSPECIFIED 01/12/2010 RACIEL MACHINE II CUTTER, EVANS R 268.9 VITAMIN D DEFICIENCY 01/12/2010 RACIEL MACHINE II CUTTER, EVANS R 285.9 ANEMIA UNSPECIFIED 01/12/2010 FORD DO, GUZMAN K 268.9 VITAMIN D DEFICIENCY 01/12/2010 FORD DO, GUZMAN K 285.9 ANEMIA UNSPECIFIED 01/12/2010 RAJOTTE MACHINE II CUTTER, ORLY A 268.9 VITAMIN D DEFICIENCY 01/12/2010 RAJOTTE MACHINE II CUTTER, ORLY A 285.9 ANEMIA UNSPECIFIED 01/12/2010 RACIEL MACHINE II CUTTER, EVANS R 268.9 VITAMIN D DEFICIENCY 01/12/2010 RACIEL MACHINE II CUTTER, EVANS R 285.9 ANEMIA UNSPECIFIED 01/12/2010 MUNROE MACHINE II CUTTER, TERRI D 268.9 VITAMIN D DEFICIENCY 01/12/2010 MUNROE MACHINE II CUTTER, TERRI D 285.9 ANEMIA UNSPECIFIED 01/12/2010 DEANNE LCMF, KENYETTA W 268.9 VITAMIN D DEFICIENCY 01/12/2010 DEANNE LCMF, KENYETTA W 285.9 ANEMIA UNSPECIFIED 01/12/2010 MADL MACHINE II CUTTER, MILIND L 268.9 VITAMIN D DEFICIENCY 01/12/2010 MADL MACHINE II CUTTER, MILIND L 285.9 ANEMIA UNSPECIFIED 01/12/2010 DEANNE LCMF, KENYETTA W 268.9 VITAMIN D DEFICIENCY 01/12/2010 DEANNE LCMF, KENYETTA W 285.9 ANEMIA UNSPECIFIED 01/12/2010 CINTHIA GAS TORCH BRAZIER, DIANE M 268.9 VITAMIN D DEFICIENCY 01/12/2010 CINTHIA GAS TORCH BRAZIER, DIANE M 285.9 ANEMIA UNSPECIFIED 01/31/2010 FORD [...] GUZMAN K 780.8 GENERALIZED HYPERHIDROSIS 01/31/2010 RACIEL MACHINE II CUTTER, EVANS R 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 01/31/2010 RACIEL MACHINE II CUTTER, EVANS R 626.4 IRREGULAR MENSTRUAL CYCLE 01/31/2010 RACIEL MACHINE II CUTTER, EVANS R 780.8 GENERALIZED HYPERHIDROSIS 01/31/2010 MICHAEL [...] 626.4 IRREGULAR MENSTRUAL CYCLE 01/31/2010 RODRIGUEZ CASHERO MACHINE II CUTTER, ALICE N 780.8 GENERALIZED HYPERHIDROSIS 01/31/2010 RACIEL MACHINE II CUTTER, EVANS R 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 01/31/2010 RACIEL MACHINE II CUTTER, EVANS R 626.4 IRREGULAR MENSTRUAL CYCLE 01/31/2010 RACIEL MACHINE II CUTTER, EVANS R 780.8 GENERALIZED HYPERHIDROSIS 01/31/2010 FORD DO GUZMAN K 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 01/31/2010 FORD DO, GUZMAN K 626.4 IRREGULAR MENSTRUAL CYCLE 01/31/2010 FORD DO, GUZMAN K 780.8 GENERALIZED HYPERHIDROSIS 01/31/2010 KATHYE MACHINE II CUTTER, ORLY A 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 01/31/2010 RAJOTTE MACHINE II CUTTER, ORLY A 626.4 IRREGULAR MENSTRUAL CYCLE 01/31/2010 RAJOTTE MACHINE II CUTTER, ORLY A 780.8 GENERALIZED HYPERHIDROSIS 01/31/2010 RACIEL MACHINE II CUTTER, EVANS R 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 01/31/2010 RACIEL MACHINE II CUTTER, EVANS R 626.4 IRREGULAR MENSTRUAL CYCLE 01/31/2010 RACIEL MACHINE II CUTTER, EVANS R 780.8 GENERALIZED HYPERHIDROSIS 01/31/2010 TERRI [...] L 626.4 IRREGULAR MENSTRUAL CYCLE 01/31/2010 MADL MACHINE II CUTTER, MILIND L 780.8 GENERALIZED HYPERHIDROSIS 01/31/2010 DEANNE [...] S 780.79 MALAISE AND FATIGUE 02/08/2010 CARLEEN MACHINE II CUTTER, KASSY S 787.02 NAUSEA ALONE 02/08/2010 CARLEEN [...] A 780.79 MALAISE AND FATIGUE 02/08/2010 AR LEE ORLY A 787.02 NAUSEA ALONE 02/08/2010 RACIEL MACHINE II CUTTER, EVANS R 780.79 MALAISE AND FATIGUE 02/08/2010 RACIEL SARMEINTON, EVANS R 787.02 NAUSEA ALONE 02/08/2010 TERRI MUNROE APRN 780.79 MALAISE AND FATIGUE 02/08/2010 TERRI MUNROE APRN 787.02 NAUSEA ALONE 02/08/2010 DEANNE AVILAF, KENYETTA Hernandez 780.79 MALAISE AND FATIGUE 02/08/2010 DEANNE LCMF, KENYETTA Hernandez 787.02 NAUSEA ALONE 02/08/2010 MADL MACHINE II CUTTER, MILIND Andre 780.79 MALAISE AND FATIGUE 02/08/2010 MADL MACHINE II CUTTER, MILIND L 787.02 NAUSEA ALONE 02/08/2010 DEANNE [...] R 466.0 ACUTE BRONCHITIS 10/27/2010 MICHAEL MUNIZ MACHINE II CUTTER, ALICE N 466.0 ACUTE BRONCHITIS 10/27/2010 FORD DO GUZMAN K 466.0 ACUTE BRONCHITIS 10/27/2010 CARLEEN LEE, KASSY S 466.0 ACUTE BRONCHITIS 10/27/2010 MICHAEL LOPEZERO MACHINE II CUTTER, ALICE N 466.0 ACUTE BRONCHITIS 10/27/2010 RACIEL SARMIENTON, EVANS R 466.0 ACUTE BRONCHITIS 10/27/2010 FORD DO GUZMAN K 466.0 ACUTE BRONCHITIS 10/27/2010 RAJOTTE MACHINE II CUTTER, ORLY A 466.0 ACUTE BRONCHITIS 10/27/2010 RACIEL MACHINE II CUTTER, EVANS R 466.0 ACUTE BRONCHITIS 10/27/2010 LUDWIG MACHINE II CUTTER, TERRI Dahl 466.0 ACUTE BRONCHITIS 10/27/2010 DEANNE LCMF, KENYETTA W 466.0 ACUTE BRONCHITIS 10/27/2010 VLAD MACHINE II CUTTER, MILIND L 466.0 ACUTE BRONCHITIS 10/27/2010 DEANNE LCMF, KENYETTA W 466.0 ACUTE BRONCHITIS 10/27/2010 CINTHIA HOLT, DIANE M 466.0 ACUTE BRONCHITIS 12/01/2010 FORD DO, GUZMAN K 625.9 PELVIC PAIN 12/01/2010 FORD DO, GUZMAN K 784.0 HEADACHE 12/01/2010 NOEMÍ MCCLURE MD, KIARA A 625.9 PELVIC PAIN 12/01/2010 NOEMÍ MCCLURE MD, KIARA A 784.0 HEADACHE 12/01/2010 CARLEEN MACHINE II CUTTER, KASSY S 625.9 PELVIC PAIN 12/01/2010 CARLEEN MACHINE II CUTTER, KASSY S 784.0 HEADACHE 12/01/2010 CARLEEN MACHINE II CUTTER, KASSY S 625.9 PELVIC PAIN 12/01/2010 CARLEEN MACHINE II CUTTER, KASSY S 784.0 HEADACHE 12/01/2010 FORD DO, GUZMAN K 625.9 PELVIC PAIN 12/01/2010 FORD DO, GUZMAN K 784.0 HEADACHE 12/01/2010 RACIEL MACHINE II CUTTER, EVANS R 625.9 PELVIC PAIN 12/01/2010 RACIEL MACHINE II CUTTER, EVANS R 784.0 HEADACHE 12/01/2010 RODRIGUEZ CASHERO MACHINE II CUTTER, ALICE N 625.9 PELVIC PAIN 12/01/2010 RODRIGUEZ CASHERO MACHINE II CUTTER, ALICE N 784.0 HEADACHE 12/01/2010 FORD DO, GUZMAN K 625.9 PELVIC PAIN 12/01/2010 FORD DO, GUZMAN K 784.0 HEADACHE 12/01/2010 CARLEEN MACHINE II CUTTER, KASSY S 625.9 PELVIC PAIN 12/01/2010 CARLEEN MACHINE II CUTTER, KASSY S 784.0 HEADACHE 12/01/2010 RODRIGUEZ CASHERO MACHINE II CUTTER, ALICE N 625.9 PELVIC PAIN 12/01/2010 RODRIGUEZ CASHERO MACHINE II CUTTER, ALICE N 784.0 HEADACHE 12/01/2010 RACIEL MACHINE II CUTTER, EVANS R 625.9 PELVIC PAIN 12/01/2010 RACIEL MACHINE II CUTTER, EVANS R 784.0 HEADACHE 12/01/2010 FORD DO, GUZMAN K 625.9 PELVIC PAIN 12/01/2010 FORD DO, GUZMAN K 784.0 HEADACHE 12/01/2010 RAJOTTE MACHINE II CUTTER, ORLY A 625.9 PELVIC PAIN 12/01/2010 RAJOTTE MACHINE II CUTTER, ORLY A 784.0 HEADACHE 12/01/2010 RACIEL MACHINE II CUTTER, EVANS R 625.9 PELVIC PAIN 12/01/2010 RACIEL MACHINE II CUTTER, EVANS R 784.0 HEADACHE 12/01/2010 MUNROE MACHINE II CUTTER, TERRI D 625.9 PELVIC PAIN 12/01/2010 MUNROE MACHINE II CUTTER, TERRI D 784.0 HEADACHE 12/01/2010 DEANNE LCMF, KENYETTA W 625.9 PELVIC PAIN 12/01/2010 DEANNE LCMF, KENYETTA W 784.0 HEADACHE 12/01/2010 MADL MACHINE II CUTTER, MILIND L 625.9 PELVIC PAIN 12/01/2010 MADL MACHINE II CUTTER, MILIND L 784.0 HEADACHE 12/01/2010 DEANNE LCMF, KENYETTA W 625.9 PELVIC PAIN 12/01/2010 DEANNE LCMF, KENYETTA W 784.0 HEADACHE 12/01/2010 CINTHIA GAS TORCH BRAZIER, DIANE M 625.9 PELVIC PAIN 12/01/2010 CINTHIA GAS TORCH BRAZIER, DIANE M 784.0 HEADACHE 01/30/2011 FORD DO, GUZMAN K 788.63 URINARY URGENCY 01/30/2011 FORD DO, GUZMAN K V74.5 STD SCREEN 01/30/2011 NOEMÍ MCCLURE MD, KIARA A 788.63 URINARY URGENCY 01/30/2011 NOEMÍ MCCLURE MD, KIARA A V74.5 STD SCREEN 01/30/2011 CARLEEN MACHINE II CUTTER, KASSY S 788.63 URINARY URGENCY 01/30/2011 CARLEEN MACHINE II CUTTER, KASSY S V74.5 STD SCREEN 01/30/2011 CARLEEN MACHINE II CUTTER, KASSY S 788.63 URINARY URGENCY 01/30/2011 CARLEEN MACHINE II CUTTER, KASSY S V74.5 STD SCREEN 01/30/2011 FORD DO, GUZMAN K 788.63 URINARY URGENCY 01/30/2011 FORD DO, GUZMAN K V74.5 STD SCREEN 01/30/2011 RACIEL MACHINE II CUTTER, EVANS R 788.63 URINARY URGENCY 01/30/2011 RACIEL MACHINE II CUTTER, EVANS R V74.5 STD SCREEN 01/30/2011 RODRIGUEZ CASHERO MACHINE II CUTTER, ALICE N 788.63 URINARY URGENCY 01/30/2011 RODRIGUEZ CASHERO MACHINE II CUTTER, ALICE N V74.5 STD SCREEN 01/30/2011 FORD DO, GUZMAN K 788.63 URINARY URGENCY 01/30/2011 FORD DO, GUZMAN K V74.5 STD SCREEN 01/30/2011 CARLEEN MACHINE II CUTTER, KASSY S 788.63 URINARY URGENCY 01/30/2011 CARLEEN MACHINE II CUTTER, KASSY S V74.5 STD SCREEN 01/30/2011 RODRIGUEZ CASHERO MACHINE II CUTTER, ALICE N 788.63 URINARY URGENCY 01/30/2011 RODRIGUEZ CASHERO MACHINE II CUTTER, ALICE N V74.5 STD SCREEN 01/30/2011 RACIEL MACHINE II CUTTER, EVANS R 788.63 URINARY URGENCY 01/30/2011 RACIEL MACHINE II CUTTER, EVANS R V74.5 STD SCREEN 01/30/2011 FORD DO, GUZMAN K 788.63 URINARY URGENCY 01/30/2011 FORD DO, GUZMAN K V74.5 STD SCREEN 01/30/2011 RAJOTTE MACHINE II CUTTER, ORLY A 788.63 URINARY URGENCY 01/30/2011 RAJOTTE MACHINE II CUTTER, ORLY A V74.5 STD SCREEN 01/30/2011 RACIEL MACHINE II CUTTER, EVANS R 788.63 URINARY URGENCY 01/30/2011 RACIEL MACHINE II CUTTER, EVANS R V74.5 STD SCREEN 01/30/2011 LUDWIG MACHINE II CUTTERRONNI BillON D 788.63 URINARY URGENCY 01/30/2011 LUDWIG MACHINE II CUTTERTERRI Bill V74.5 STD SCREEN 01/30/2011 DEANNE HOLCOMBMF, KENYETTA Hernandez 788.63 URINARY URGENCY 01/30/2011 DEANNE LCMF, KENYETTA Hernandez V74.5 STD SCREEN 01/30/2011 VLAD MACHINE II CUTTERMILIND Bill 788.63 URINARY URGENCY 01/30/2011 MADL MACHINE II CUTTER, MILIND L V74.5 STD SCREEN 01/30/2011 DEANNE [...] MD, KIARA A 788.1 DYSURIA 06/19/2011 CARLEEN MACHINE II CUTTER, KASSY S 535.00 ACUTE GASTRITIS (WITHOUT HEMORRHAGE) 06/19/2011 CARLEEN MACHINE II CUTTER, KASSY S 729.1 FIBROMYALGIA 06/19/2011 CARLEEN MACHINE II CUTTER, KASSY S 788.1 DYSURIA 06/19/2011 CARLEEN MACHINE II CUTTER, KASSY S 535.00 ACUTE GASTRITIS (WITHOUT HEMORRHAGE) 06/19/2011 CARLEEN MACHINE II CUTTER, KASSY S 729.1 FIBROMYALGIA 06/19/2011 CARLEEN MACHINE II CUTTER, KASSY S 788.1 DYSURIA 06/19/2011 FORD DO GUZMAN K 535.00 ACUTE GASTRITIS (WITHOUT HEMORRHAGE) 06/19/2011 FORD DO, GUZMAN K 729.1 FIBROMYALGIA 06/19/2011 FORD DO, GUZMAN K 788.1 DYSURIA 06/19/2011 RACIEL LEE EVANS R 535.00 ACUTE GASTRITIS (WITHOUT HEMORRHAGE) 06/19/2011 RACIEL MACHINE II CUTTER EVANS R 729.1 FIBROMYALGIA 06/19/2011 RACIEL LEE EVANS R 788.1 DYSURIA 06/19/2011 ALICE MARTINS APRN N 535.00 ACUTE GASTRITIS (WITHOUT HEMORRHAGE) 06/19/2011 RODRIGUEZ CASHERO MACHINE II CUTTER, ALICE N 729.1 FIBROMYALGIA 06/19/2011 RODRIGUEZ CASHERO MACHINE II CUTTER, ALICE N 788.1 DYSURIA 06/19/2011 FORD DO, GUZMAN K 535.00 ACUTE GASTRITIS (WITHOUT HEMORRHAGE) 06/19/2011 FORD DO, GUZMAN K 729.1 FIBROMYALGIA 06/19/2011 FORD DO, GUZMAN K 788.1 DYSURIA 06/19/2011 CARLEEN MACHINE II CUTTER, KASSY S 535.00 ACUTE GASTRITIS (WITHOUT HEMORRHAGE) 06/19/2011 CARLEEN MACHINE II CUTTER, KASSY S 729.1 FIBROMYALGIA 06/19/2011 CARLEEN MACHINE II CUTTER, KASSY S 788.1 DYSURIA 06/19/2011 RODRIGUEZ JESSICAALVAREZ MACHINE II CUTTER, ALICE N 535.00 ACUTE GASTRITIS (WITHOUT HEMORRHAGE) 06/19/2011 MICHAEL LOPEZERO MACHINE II CUTTER, ALICE N 729.1 FIBROMYALGIA 06/19/2011 RODRIGUEZ JESSICAERO MACHINE II CUTTER, ALICE N 788.1 DYSURIA 06/19/2011 RACIEL LEE [...] JESUS ORLY A 729.1 FIBROMYALGIA 06/19/2011 KATHYE MACHINE II CUTTER, ORLY A 788.1 DYSURIA 06/19/2011 RACIEL LEE [...] LCMF, KENYETTA W 788.1 DYSURIA 06/19/2011 MADL MACHINE II CUTTER, MILIND L 535.00 ACUTE GASTRITIS (WITHOUT HEMORRHAGE) 06/19/2011 MADL MACHINE II CUTTER, MILIND L 729.1 FIBROMYALGIA 06/19/2011 MADL MACHINE II CUTTER, MILIND L 788.1 DYSURIA 06/19/2011 DEANNE HOLCOMBMF, [...] CARLEEN LEE KASSY S 780.52 insomnia 07/19/2011 OMKRA MARTINS APRNCY N 780.52 insomnia 07/19/2011 АННА [...] MD 729.5 PAIN IN LIMB 08/13/2011 CARLEEN MACHINE II CUTTER, KASSY S 724.1 PAIN IN THORACIC SPINE 08/13/2011 CARLEEN MACHINE II CUTTER, KASSY S 729.5 PAIN IN LIMB 08/13/2011 CARLEEN MACHINE II CUTTER, KASSY S 724.1 PAIN IN THORACIC SPINE 08/13/2011 CARLEEN MACHINE II CUTTER, KASSY S 729.5 PAIN IN LIMB 08/13/2011 FORD DO, GUZMAN K 724.1 PAIN IN THORACIC SPINE 08/13/2011 FORD DO, GUZMAN K 729.5 PAIN IN LIMB 08/13/2011 RACIEL MACHINE II CUTTER, EVANS R 724.1 PAIN IN THORACIC SPINE 08/13/2011 RACIEL MACHINE II CUTTER, EVANS R 729.5 PAIN IN LIMB 08/13/2011 RODRIGUEZ CRISTY MACHINE II CUTTER, ALICE N 724.1 PAIN IN THORACIC SPINE 08/13/2011 RODRIGUEZ CASHERO MACHINE II CUTTER, ALICE N 729.5 PAIN IN LIMB 08/13/2011 FORD DO, GUZMAN K 724.1 PAIN IN THORACIC SPINE 08/13/2011 FORD DO, GUZMAN K 729.5 PAIN IN LIMB 08/13/2011 CARLEEN MACHINE II CUTTER, KASSY S 724.1 PAIN IN THORACIC SPINE 08/13/2011 CARLEEN MACHINE II CUTTER, KASSY S 729.5 PAIN IN LIMB 08/13/2011 RODRIGUEZ CASHERO MACHINE II CUTTER, ALICE N 724.1 PAIN IN THORACIC SPINE 08/13/2011 RODRIGUEZ CASHERO MACHINE II CUTTER, ALICE N 729.5 PAIN IN LIMB 08/13/2011 RACIEL MACHINE II CUTTER, EVANS R 724.1 PAIN IN THORACIC SPINE 08/13/2011 RACIEL MACHINE II CUTTER, EVANS R 729.5 PAIN IN LIMB 08/13/2011 FORD DO, GUZMAN K 724.1 PAIN IN THORACIC SPINE 08/13/2011 FORD DO, GUZMAN K 729.5 PAIN IN LIMB 08/13/2011 RAJOTTE MACHINE II CUTTER, ORLY A 724.1 PAIN IN THORACIC SPINE 08/13/2011 RAJOTTE MACHINE II CUTTER, ORLY A 729.5 PAIN IN LIMB 08/13/2011 RACIEL MACHINE II CUTTER, EVANS R 724.1 PAIN IN THORACIC SPINE 08/13/2011 RACIEL MACHINE II CUTTER, EVANS R 729.5 PAIN IN LIMB 08/13/2011 [...] Rebolledo 780.50 SLEEP DISTURBANCE, UNSPECIFIED 10/05/2011 CARLEEN MACHINE II CUTTER, KASSY S 296.90 MOOD DISORDER 10/05/2011 CARLEEN MACHINE II CUTTER, KASSY S 300.00 ANXIETY UNSPEC 10/05/2011 CARLEEN MACHINE II CUTTER, KASSY S 719.40 ARTHRAIGIA UNSPEC 10/05/2011 CARLEEN MACHINE II CUTTER, KASSY S 780.50 SLEEP DISTURBANCE, UNSPECIFIED 10/05/2011 CARLEEN MACHINE II CUTTER, KASSY S 296.90 MOOD DISORDER 10/05/2011 CARLEEN MACHINE II CUTTER, KASSY S 300.00 ANXIETY UNSPEC 10/05/2011 CARLEEN MACHINE II CUTTER, KASSY S 719.40 ARTHRAIGIA UNSPEC 10/05/2011 CARLEEN MACHINE II CUTTER, KASSY S 780.50 SLEEP DISTURBANCE, UNSPECIFIED 10/05/2011 FORD DO, GUZMAN K 296.90 MOOD DISORDER 10/05/2011 FORD DO, GUZMAN K 300.00 ANXIETY UNSPEC 10/05/2011 FORD DO, GUZMAN K 719.40 ARTHRAIGIA UNSPEC 10/05/2011 FORD DO, GUZMAN K 780.50 SLEEP DISTURBANCE, UNSPECIFIED 10/05/2011 RACIEL MACHINE II CUTTER, EVANS R 296.90 MOOD DISORDER 10/05/2011 RACIEL LEE, EVANS R 300.00 ANXIETY UNSPEC 10/05/2011 RACIEL MACHINE II CUTTER, EVANS R 719.40 ARTHRAIGIA UNSPEC 10/05/2011 RACIEL LEE, EVANS R 780.50 SLEEP DISTURBANCE, UNSPECIFIED 10/05/2011 MICHAEL CASHALVAREZ MACHINE II CUTTER, ALICE N 296.90 MOOD DISORDER 10/05/2011 MICHAEL CASHERO MACHINE II CUTTER, ALICE N 300.00 ANXIETY UNSPEC 10/05/2011 RODRIGUEZ CASHERO MACHINE II CUTTER, ALICE N 719.40 ARTHRAIGIA UNSPEC 10/05/2011 MICHAEL CASHERO MACHINE II CUTTER, ALICE N 780.50 SLEEP DISTURBANCE, UNSPECIFIED 10/05/2011 FORD DO, GUZMAN K 296.90 MOOD DISORDER 10/05/2011 FORD DO, GUZMAN K 300.00 ANXIETY UNSPEC 10/05/2011 FORD DO, GUZMAN K 719.40 ARTHRAIGIA UNSPEC 10/05/2011 FORD DO, GUZMAN K 780.50 SLEEP DISTURBANCE, UNSPECIFIED 10/05/2011 CARLEEN MACHINE II CUTTER, KASSY S 296.90 MOOD DISORDER 10/05/2011 CARLEEN MACHINE II CUTTER, KASSY S 300.00 ANXIETY UNSPEC 10/05/2011 CARLEEN MACHINE II CUTTER, KASSY S 719.40 ARTHRAIGIA UNSPEC 10/05/2011 CARLEEN MACHINE II CUTTER, KASSY S 780.50 SLEEP DISTURBANCE, UNSPECIFIED 10/05/2011 MICHAEL LOPEZERO MACHINE II CUTTER, ALICE N 296.90 MOOD DISORDER 10/05/2011 RODRIGUEZ CASHERO MACHINE II CUTTER, ALICE N 300.00 ANXIETY UNSPEC 10/05/2011 RODRIGUEZ JESSICAERO MACHINE II CUTTER, ALICE N 719.40 ARTHRAIGIA UNSPEC 10/05/2011 MICHAEL LOPEZERO MACHINE II CUTTER, ALICE N 780.50 SLEEP DISTURBANCE, UNSPECIFIED 10/05/2011 [...] K 780.50 SLEEP DISTURBANCE, UNSPECIFIED 10/05/2011 AR MACHINE II CUTTER, ORLY A 296.90 MOOD DISORDER 10/05/2011 AR SARMIENTON, ORLY A 300.00 ANXIETY UNSPEC 10/05/2011 KATHYE MACHINE II CUTTER, ORLY A 719.40 ARTHRAIGIA UNSPEC 10/05/2011 KATHYE MACHINE II CUTTER, ORLY A 780.50 SLEEP DISTURBANCE, UNSPECIFIED 10/05/2011 [...] 780.50 SLEEP DISTURBANCE, UNSPECIFIED 10/05/2011 DEANNE LCMF, KENYETAT W 296.90 MOOD DISORDER 10/05/2011 DEANNE MF, KENYETTA W 300.00 ANXIETY UNSPEC 10/05/2011 [facility] 719.40 ARTHRAIGIA UNSPEC 10/05/2011 [facility] [place] W 780.50 SLEEP DISTURBANCE, UNSPECIFIED 10/05/2011 MADL MACHINE II CUTTER, MILIND L 296.90 MOOD DISORDER 10/05/2011 MADL MACHINE II CUTTER, MILIND L 300.00 ANXIETY UNSPEC 10/05/2011 MADL MACHINE II CUTTER, MILIND L 719.40 ARTHRAIGIA UNSPEC 10/05/2011 MADL MACHINE II CUTTER, MILIND L 780.50 SLEEP DISTURBANCE, UNSPECIFIED 10/05/2011 [facility] W 296.90 MOOD DISORDER 10/05/2011 [facility] W 300.00 ANXIETY UNSPEC 10/05/2011 [facility] [place] W 719.40 ARTHRAIGIA UNSPEC 10/05/2011 [facility] [place] W 780.50 SLEEP DISTURBANCE, UNSPECIFIED 10/05/2011 DIANE ANGELA M 296.90 MOOD DISORDER 10/05/2011 CINTHIA GAS TORCH BRAZIER, DIANE M 300.00 ANXIETY UNSPEC 10/05/2011 CINTHIA GAS TORCH BRAZIER, DIANE M 719.40 ARTHRAIGIA UNSPEC 10/05/2011 CINTHIA GAS TORCH BRAZIER, DIANE M 780.50 SLEEP DISTURBANCE, UNSPECIFIED 10/14/2011 Ot 780.96 10/24/2011 FORD DO, GUZMAN K 782.0 SENSORY DISTURBANCE SKIN 10/24/2011 FORD DO GUZMAN K 787.01 NAUSEA WITH VOMITING 10/24/2011 KIARA WILLAMS MD 782.0 SENSORY DISTURBANCE SKIN 10/24/2011 KIARA WILLAMS MD 787.01 NAUSEA WITH VOMITING 10/24/2011 CARLEEN MACHINE II CUTTER, KASSY S 782.0 SENSORY DISTURBANCE SKIN 10/24/2011 [...] GUZMAN K 787.01 NAUSEA WITH VOMITING 10/24/2011 PIHLLIP DURANT APRNA S 782.0 SENSORY DISTURBANCE SKIN [...] W 787.01 NAUSEA WITH VOMITING 10/24/2011 MADL MACHINE II CUTTER, MILIND L 782.0 SENSORY DISTURBANCE SKIN 10/24/2011 MADL MACHINE II CUTTER, MILIND L 787.01 NAUSEA WITH VOMITING 10/24/2011 DEANNE LCMF, KENYETTA W 782.0 SENSORY DISTURBANCE SKIN 10/24/2011 DEANNE LCMF, KENYETTA W 787.01 NAUSEA WITH VOMITING 10/24/2011 CINTHIA GAS TORCH BRAZIER, DIANE M 782.0 SENSORY DISTURBANCE SKIN 10/24/2011 CINTHIA GAS TORCH BRAZIER, DIANE M 787.01 NAUSEA WITH VOMITING 08/05/2012 [...] CERVICAL CANCER SCREENING (PAP SMEAR) 08/05/2012 CARLEEN MACHINE II CUTTER, KASSY S 626.2 EXCESSIVE OR FREQUENT MENSTRUATION 08/05/2012 CARLEEN MACHINE II CUTTER, KASSY S V76.2 CERVICAL CANCER SCREENING (PAP SMEAR) 08/05/2012 OMKAR MARTINS APRNCY N 626.2 EXCESSIVE OR FREQUENT MENSTRUATION 08/05/2012 RODRIGUEZ JESSICAERO MACHINE II CUTTER, ALICE N V76.2 CERVICAL CANCER SCREENING (PAP SMEAR) 08/05/2012 RACIEL MACHINE II CUTTER, EVANS R 626.2 EXCESSIVE OR FREQUENT MENSTRUATION [...] R 704.00 ALOPECIA UNSPECIFIED 07/09/2013 RACIEL LEE EVNAS R V70.0 EXAM - ROUTINE H&P 07/09/2013 [...] N 704.00 ALOPECIA UNSPECIFIED 07/09/2013 MICHAEL LOPEZERO MACHINE II CUTTER, ALICE N V70.0 EXAM - ROUTINE H&P 07/09/2013 RACIEL LEE EVANS R 704.00 ALOPECIA UNSPECIFIED 07/09/2013 RACIEL LEE EVANS R V70.0 EXAM - ROUTINE H&P 07/09/2013 FORD DO, GUZMAN K 704.00 ALOPECIA UNSPECIFIED 07/09/2013 FORD DO, GUZMAN K V70.0 EXAM - ROUTINE H&P 07/09/2013 RAJOTTE MACHINE II CUTTER, ORLY A 704.00 ALOPECIA UNSPECIFIED 07/09/2013 AR SARMIENTON, ORLY A V70.0 EXAM - ROUTINE H&P 07/09/2013 RACIEL SARMIENTON, EVANS R 704.00 ALOPECIA UNSPECIFIED 07/09/2013 RACIEL SARMIENTON, EVANS R V70.0 EXAM - ROUTINE H&P 07/09/2013 MUNROE MACHINE II CUTTER, TERRI D 704.00 ALOPECIA UNSPECIFIED 07/09/2013 MUNROE MACHINE II CUTTER, TERRI D V70.0 EXAM - ROUTINE H&P 07/09/2013 DEANNE LCMF, KENYETTA W 704.00 ALOPECIA UNSPECIFIED 07/09/2013 DEANNE MF, KENYETTA W V70.0 EXAM - ROUTINE H&P 07/09/2013 MADL MACHINE II CUTTER, MILIND L 704.00 ALOPECIA UNSPECIFIED 07/09/2013 MADL MACHINE II CUTTER, MILIND L V70.0 EXAM - ROUTINE H&P 07/09/2013 [facility] 704.00 ALOPECIA UNSPECIFIED 07/09/2013 [facility] W V70.0 EXAM - ROUTINE H&P 07/09/2013 CINTHIA HOLT, DIANE M 704.00 ALOPECIA UNSPECIFIED 07/09/2013 CINTHIA GAS TORCH BRAZIER, DIANE M V70.0 EXAM - ROUTINE H&P [...] N 354.0 CARPAL TUNNEL SYNDROME 09/01/2013 RACIEL LEE, EVANS R 354.0 CARPAL TUNNEL SYNDROME 09/01/2013 FORD ADAM MCKEONA K 354.0 CARPAL TUNNEL SYNDROME 09/01/2013 RAJOTTE MACHINE II CUTTER, ORLY A 354.0 CARPAL TUNNEL SYNDROME 09/01/2013 [...] EVANS R 733.92 CHONDROMALACIA 09/03/2013 MICHAEL MUNIZ MACHINE II CUTTER, ALICE N 733.92 CHONDROMALACIA 09/03/2013 FORD DO, GUZMAN K 733.92 CHONDROMALACIA 09/03/2013 CARLEEN LEE KASSY S 733.92 CHONDROMALACIA 09/03/2013 MICHAEL MUNIZ MACHINE II CUTTER, ALICE N 733.92 CHONDROMALACIA 09/03/2013 RACIEL MACHINE II CUTTER, EVANS R 733.92 CHONDROMALACIA 09/03/2013 FORD DO, [...] N 462 ACUTE PHARYNGITIS 09/15/2013 RODRIGUEZ CASHERO MACHINE II CUTTER, ALICE N 786.2 COUGH 09/15/2013 FORD DO, GUZMAN K 462 ACUTE PHARYNGITIS 09/15/2013 FORD DO, GUZMAN K 786.2 COUGH 09/15/2013 CARLEEN MACHINE II CUTTER, KASSY S 462 ACUTE PHARYNGITIS 09/15/2013 CARLEEN MACHINE II CUTTER, KASSY S 786.2 COUGH 09/15/2013 MICHAEL MUNIZ MACHINE II CUTTER, ALICE N 462 ACUTE PHARYNGITIS 09/15/2013 MICHAEL LOPEZERO MACHINE II CUTTER, ALICE N 786.2 COUGH 09/15/2013 RACIEL MACHINE II CUTTER, EVANS R 462 ACUTE PHARYNGITIS 09/15/2013 RACIEL MACHINE II CUTTER, EVANS R 786.2 COUGH 09/15/2013 FORD DO, GUZMAN K 462 ACUTE PHARYNGITIS 09/15/2013 FORD DO, GUZMAN K 786.2 COUGH 09/15/2013 RAJOTTE MACHINE II CUTTER, ORLY A 462 ACUTE PHARYNGITIS 09/15/2013 RAJOTTE MACHINE II CUTTER, ORLY A 786.2 COUGH 09/15/2013 RACIEL MACHINE II CUTTER, EVANS R 462 ACUTE PHARYNGITIS 09/15/2013 RACIEL MACHINE II CUTTER, EVANS R 786.2 COUGH 09/15/2013 LUDWIG MACHINE II CUTTERTERRI Bill D 462 ACUTE PHARYNGITIS 09/15/2013 LUDWIG MACHINE II CUTTERTERRI D 786.2 COUGH 09/15/2013 DEANNE LCMF, KENYETTA W 462 ACUTE PHARYNGITIS 09/15/2013 DEANNE LCMF, KENYETTA W 786.2 COUGH 09/15/2013 MADL MACHINE II CUTTER, MILIND L 462 ACUTE PHARYNGITIS 09/15/2013 MADL MACHINE II CUTTER, MILIND L 786.2 COUGH 09/15/2013 DEANNE LCMF, KENYETTA W 462 ACUTE PHARYNGITIS 09/15/2013 DEANNE LCMF, KENYETTA W 786.2 COUGH 09/15/2013 DIANE ANGELA 462 ACUTE PHARYNGITIS 09/15/2013 DIANE ANGELA 786.2 COUGH 09/29/2013 MICHAEL MUNIZ MACHINE II CUTTER, ALICE N 477.9 ALLERGIC RHINITIS CAUSE UNSPECIFIED 09/29/2013 MICHAEL MUNIZ MACHINE II CUTTER, ALICE N 478.19 OTHER DISEASES OF NASAL CAVITY AND SINUSES 09/29/2013 FORD DO, GUZMAN K 477.9 ALLERGIC RHINITIS CAUSE UNSPECIFIED 09/29/2013 FORD DO, GUZMAN K 478.19 OTHER DISEASES OF NASAL CAVITY AND SINUSES 09/29/2013 CARLEEN MACHINE II CUTTER, KASSY S 477.9 ALLERGIC RHINITIS CAUSE UNSPECIFIED 09/29/2013 CARLEEN MACHINE II CUTTER, KASSY S 478.19 OTHER DISEASES OF NASAL CAVITY AND SINUSES 09/29/2013 RODRIGUEZ CASHERO MACHINE II CUTTER, ALICE N 477.9 ALLERGIC RHINITIS CAUSE UNSPECIFIED 09/29/2013 RODRIGUEZ CASHERO MACHINE II CUTTER, ALICE N 478.19 OTHER DISEASES OF NASAL CAVITY AND SINUSES 09/29/2013 RACIEL MACHINE II CUTTER, EVANS R 477.9 ALLERGIC RHINITIS CAUSE UNSPECIFIED 09/29/2013 RACIEL MACHINE II CUTTER, EVANS R 478.19 OTHER DISEASES OF NASAL CAVITY AND SINUSES 09/29/2013 FORD DO, GUZMAN K 477.9 ALLERGIC RHINITIS CAUSE UNSPECIFIED 09/29/2013 FORD DO, GUZMAN K 478.19 OTHER DISEASES OF NASAL CAVITY AND SINUSES 09/29/2013 RAJOTTE MACHINE II CUTTER, ORLY A 477.9 ALLERGIC RHINITIS CAUSE UNSPECIFIED 09/29/2013 RAJOTTE MACHINE II CUTTER, ORLY A 478.19 OTHER DISEASES OF NASAL CAVITY AND SINUSES 09/29/2013 RACIEL MACHINE II CUTTER, EVANS R 477.9 ALLERGIC RHINITIS CAUSE UNSPECIFIED 09/29/2013 RACIEL MACHINE II CUTTER, EVANS R 478.19 OTHER DISEASES OF NASAL CAVITY AND SINUSES 09/29/2013 TERRI MUNROE APRN 477.9 ALLERGIC RHINITIS CAUSE UNSPECIFIED 09/29/2013 TERRI MUNROE APRN 478.19 OTHER DISEASES OF NASAL CAVITY AND SINUSES 09/29/2013 DEANNE AVLIAFKENYETTA W 477.9 ALLERGIC RHINITIS CAUSE UNSPECIFIED 09/29/2013 DEANNE AVILAF, KENYETTA W 478.19 OTHER DISEASES OF NASAL CAVITY AND SINUSES 09/29/2013 BONNYL MILIND LEE 477.9 ALLERGIC RHINITIS CAUSE UNSPECIFIED 09/29/2013 MADL MACHINE II CUTTERMILIND L 478.19 OTHER DISEASES OF NASAL CAVITY [...] IN JOINT INVOLVING LOWER LEG 11/02/2013 [facility] W 719.46 PAIN IN JOINT INVOLVING LOWER LEG 11/02/2013 MILIND CHU APRN 719.46 PAIN IN JOINT INVOLVING LOWER LEG 11/02/2013 [facility] [place] W 719.46 PAIN IN JOINT INVOLVING LOWER LEG 11/02/2013 DIANE ANGELA 719.46 PAIN IN JOINT INVOLVING LOWER LEG 12/01/2013 MICHAEL MUNIZ APRN, ALICE N 691.8 OTHER ATOPIC DERMATITIS AND RELATED CONDITIONS 12/01/2013 RODRIGUEZ CASHERO MACHINE II CUTTER, ALICE N 698.9 UNSPECIFIED PRURITIC DISORDER 12/01/2013 [...] ORLY A 698.9 UNSPECIFIED PRURITIC DISORDER 12/01/2013 RACIEL LEE [...] W 698.9 UNSPECIFIED PRURITIC DISORDER 12/01/2013 MADL MACHINE II CUTTER, MILIND L 691.8 OTHER ATOPIC DERMATITIS AND RELATED CONDITIONS 12/01/2013 MADL MACHINE II CUTTER, MILIND L 698.9 UNSPECIFIED PRURITIC DISORDER 12/01/2013 [...] CANDIDIASIS OF SKIN AND NAILS 12/17/2013 MUNROE MACHINE II CUTTER, TERRI D 388.30 TINNITUS UNSPECIFIED 12/17/2013 DEANNE AVILAF, KENYETTA W 112.3 CANDIDIASIS OF SKIN AND NAILS 12/17/2013 DEANNE AVILAF, KENYETTA W 388.30 TINNITUS UNSPECIFIED 12/17/2013 BONNYL MACHINE II CUTTER, MILIND L 112.3 CANDIDIASIS OF SKIN AND NAILS 12/17/2013 BONNYL MACHINE II CUTTER, MILIND L 388.30 TINNITUS UNSPECIFIED 12/17/2013 DEANNE AVILAF, KENYETTA W 112.3 CANDIDIASIS OF SKIN AND NAILS 12/17/2013 DEANNE HOLCOMBMF, KENYETTA W 388.30 TINNITUS UNSPECIFIED 12/17/2013 DIANE ANGELA M 112.3 CANDIDIASIS OF SKIN AND NAILS 12/17/2013 DIANE ANGELA M 388.30 TINNITUS UNSPECIFIED 12/23/2013 KASSY DURANT WINDOWS DEPLOYMENT TECHNICIAN Ot 719.40 12/23/2013 KASSY DURANT WINDOWS DEPLOYMENT TECHNICIAN Ot 733.92 12/23/2013 KASSY DURANT WINDOWS DEPLOYMENT TECHNICIAN Ot V57.1 04/12/2014 AR SARMIENTON, ORLY A 356.9 NEUROPATHY 04/12/2014 RAJELAINEE MACHINE II CUTTER, ORLY A 369.9 UNSPECIFIED VISUAL LOSS 04/12/2014 AR SARMIENTON, ORLY A 783.0 ANOREXIA 04/12/2014 RACIEL SARMIENTON, EVANS R 356.9 NEUROPATHY 04/12/2014 RACIEL MACHINE II CUTTER, EVANS R 369.9 UNSPECIFIED VISUAL LOSS 04/12/2014 [...] CHU APRNA L 356.9 NEUROPATHY 04/12/2014 VLAD MACHINE II CUTTER, MILIND L 369.9 UNSPECIFIED VISUAL LOSS 04/12/2014 VLAD MACHINE II CUTTER, MILIND L 783.0 ANOREXIA 04/12/2014 DEANNE HOLCOMBMF, [...] DEPRESSIVE DISORDER NOT ELSEWHERE CLASSIFIED 08/12/2014 CINTHIA GAS TORCH BRAZIER, DIANE M 311 DEPRESSIVE DISORDER NOT ELSEWHERE CLASSIFIED 09/07/2014 DEANNE LCMF, KENYETTA W 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 I MIXED MODERATE 09/07/2014 CINTHIA GAS TORCH BRAZIER, DIANE M 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 I MIXED MODERATE 09/08/2014 DEANNE LCMF, KENYETTA W 296.89 MO BIPOLAR II 09/08/2014 CINTHIA HOLT, DIANE M 296.89 MO BIPOLAR II 12/03/2014 Ot 368.9 12/03/2014 Ot 729.5 12/03/2014 Ot 781.2 12/03/2014 YESSENIA MILLARD MACHINE II CUTTER Ot 719.47 12/03/2014 YESSENIA MILLARD MACHINE II CUTTER Ot 845.00 12/03/2014 YESSENIA MILLARD MACHINE II CUTTER Ot E000.8 12/03/2014 YESESNIA MILLARD MACHINE II CUTTER Ot E888.9 03/15/2015 Ot 368.9 03/15/2015 Ot 729.5 03/15/2015 Ot 781.2 03/15/2015 Ot 368.9 03/15/2015 Ot 729.5 03/15/2015 Ot 781.2 11/24/2015 YESSENIA MILLARD MACHINE II CUTTER Ot E66.9 OBESITY, UNSPECIFIED 11/24/2015 YESSENIA MILLARD MACHINE II CUTTER Ot M23.91 UNSPECIFIED INTERNAL DERANGEMENT OF RIGH 11/24/2015 YESSENIA MILLARD MACHINE II CUTTER Ot M79.7 FIBROMYALGIA 11/24/2015 YESSENIA MILLARD MACHINE II CUTTER Ot R53.82 CHRONIC FATIGUE, UNSPECIFIED 11/25/2015 YESSENIA MILLARD MACHINE II CUTTER Ot E66.9 OBESITY, UNSPECIFIED 11/25/2015 YESSENIA MILLARD MACHINE II CUTTER Ot M23.91 UNSPECIFIED INTERNAL DERANGEMENT OF RIGH 11/25/2015 YESSENIA MILLARD MACHINE II CUTTER Ot M79.7 FIBROMYALGIA 11/25/2015 YESSENIA MILLARD APRN Ot R53.82 CHRONIC FATIGUE, UNSPECIFIED 12/20/2015 MADL, MILIND L WINDOWS DEPLOYMENT TECHNICIAN Ot M17.11 UNILATERAL PRIMARY OSTEOARTHRITIS, RIGHT 12/20/2015 MADL, MILIND L WINDOWS DEPLOYMENT TECHNICIAN Ot M25.461 EFFUSION, RIGHT KNEE 12/20/2015 MADL, MILIND L WINDOWS DEPLOYMENT TECHNICIAN Ot M25.561 PAIN IN RIGHT KNEE 12/23/2015 MADL, MILIND L WINDOWS DEPLOYMENT TECHNICIAN Ot M17.11 UNILATERAL PRIMARY OSTEOARTHRITIS, RIGHT 12/23/2015 MADL, MILIND L WINDOWS DEPLOYMENT TECHNICIAN Ot M25.461 EFFUSION, RIGHT KNEE 12/23/2015 MADL, MILIND L WINDOWS DEPLOYMENT TECHNICIAN Ot M25.561 PAIN IN RIGHT KNEE 12/26/2015 MADL, MILIND L WINDOWS DEPLOYMENT TECHNICIAN Ot M17.11 UNILATERAL PRIMARY OSTEOARTHRITIS, RIGHT 12/26/2015 MADL, MILIND L WINDOWS DEPLOYMENT TECHNICIAN Ot M25.461 EFFUSION, RIGHT KNEE 12/26/2015 MADL, MILIND L WINDOWS DEPLOYMENT TECHNICIAN Ot M25.561 PAIN IN RIGHT KNEE 12/27/2015 CAESAR DAVIES MD Ot H93.19 TINNITUS, UNSPECIFIED EAR 12/30/2015 CAESAR DAVIES MD Ot H93.19 TINNITUS, UNSPECIFIED EAR 01/06/2016 CAESAR DAVIES MD Ot H93.19 TINNITUS, UNSPECIFIED EAR 01/08/2016 YESSENIA MILLARD APRN Ot H92.01 OTALGIA, RIGHT EAR 01/08/2016 MADL, MILIND L WINDOWS DEPLOYMENT TECHNICIAN Ot M17.11 UNILATERAL PRIMARY OSTEOARTHRITIS, RIGHT 01/08/2016 MADL, MILIND L WINDOWS DEPLOYMENT TECHNICIAN Ot M25.461 EFFUSION, RIGHT KNEE 01/08/2016 MADL, MILIND L WINDOWS DEPLOYMENT TECHNICIAN Ot M25.561 PAIN IN RIGHT KNEE 01/08/2016 [...] DUE TO OLD TEAR 01/13/2016 CAESAR MAGAÑA MD Ot Z01.818 ENCOUNTER FOR OTHER PREPROCEDURAL EXAMIN 01/13/2016 CAESAR MAGAÑA MD Ot Z11.2 ENCOUNTER FOR SCREENING FOR OTHER BACTER 01/18/2016 CAESAR MAGAÑA MD Ot M22.41 CHONDROMALACIA PATELLAE, RIGHT KNEE 01/18/2016 CAESAR MAGAÑA MD Ot M23.221 DERANG OF POST HORN OF MEDIAL MENSC D/ T 01/19/2016 CAESAR MAGAÑA MD Ot M22.41 CHONDROMALACIA PATELLAE, RIGHT KNEE 01/19/2016 CAESAR MAGAÑA MD Ot M23.221 DERANG OF POST HORN OF MEDIAL MENSC D/ T 04/12/2017 RESHMA WETZEL DO Ot D64.9 ANEMIA, UNSPECIFIED 04/12/2017 RESHMA WETZEL DO Ot Z01.818 ENCOUNTER FOR OTHER PREPROCEDURAL EXAMIN 04/16/2017 RESHMA WETZEL DO Ot D64.9 ANEMIA, UNSPECIFIED 04/16/2017 RESHMA WETZEL DO Ot Z01.818 ENCOUNTER FOR OTHER PREPROCEDURAL EXAMIN 04/16/2017 RESHMA WETZEL DO Ot D50.9 IRON DEFICIENCY ANEMIA, UNSPECIFIED 04/16/2017 RESHMA WETZEL DO Ot E66.01 MORBID (SEVERE) OBESITY DUE TO EXCESS CA 04/16/2017 RESHMA WETZEL DO Ot F17.210 NICOTINE DEPENDENCE, CIGARETTES, UNCOMPL 04/16/2017 RESHMA WETZEL DO Ot F31.9 BIPOLAR DISORDER, UNSPECIFIED 04/16/2017 RESHMA WETZEL DO Ot F43.10 POST-TRAUMATIC STRESS DISORDER, UNSPECIF 04/16/2017 RESHMA WETZEL DO Ot J45.909 UNSPECIFIED ASTHMA, UNCOMPLICATED 04/16/2017 RESHMA WETZEL DO Ot K21.9 GASTRO-ESOPHAGEAL REFLUX DISEASE WITHOUT 04/16/2017 RESHMA WETZEL DO Ot M79.7 FIBROMYALGIA 04/16/2017 RESHMA WETZEL DO Ot Z68.43 BODY MASS INDEX (BMI) 50-59.9 , ADULT 04/16/2017 RESHMA WETZEL DO Ot Z79.899 OTHER PRISON (CURRENT) DRUG THERAPY 04/25/2017 RESHMA WETZEL DO Ot D50.9 IRON DEFICIENCY ANEMIA, UNSPECIFIED 04/25/2017 RESHMA WETZEL DO Ot E66.01 MORBID (SEVERE) OBESITY DUE TO EXCESS CA 04/25/2017 DAMARI MCKEON RESHMA Nabila Ot F17.210 NICOTINE DEPENDENCE, CIGARETTES, UNCOMPL 04/25/2017 DAMARI MCKEON RESHMA Nabila Ot F31.9 BIPOLAR DISORDER, UNSPECIFIED 04/25/2017 DAMARI MCKEON RESHMA Dahl Ot F43.10 POST-TRAUMATIC STRESS DISORDER, UNSPECIF 04/25/2017 WETZEL RESHMA D Ot J45.909 UNSPECIFIED ASTHMA, UNCOMPLICATED 04/25/2017 DAMARI MCKEON RESHMA D Ot K21.9 GASTRO-ESOPHAGEAL REFLUX DISEASE WITHOUT 04/25/2017 WETZEL RESHMA Nabila Ot M79.7 FIBROMYALGIA 04/25/2017 WETZEL RESHMA Dahl Ot Z68.43 BODY MASS INDEX (BMI) 50-59.9 , ADULT 04/25/2017 RESHMA WETZEL DO Ot Z79.899 OTHER PRISON (CURRENT) DRUG THERAPY 05/10/2017 YESSENIA MILLARD APRN Ot F31.9 BIPOLAR DISORDER, UNSPECIFIED 05/10/2017 YESSENIA MILLARD APRN Ot F41.9 ANXIETY DISORDER, UNSPECIFIED 05/10/2017 YESSENIA MILLARD APRN Ot F43.10 POST-TRAUMATIC STRESS DISORDER, UNSPECIF 05/10/2017 YESSENIA MILLARD APRN Ot G62.9 POLYNEUROPATHY, UNSPECIFIED 05/10/2017 YESSENIA MILLARD APRN Ot J45.909 UNSPECIFIED ASTHMA, UNCOMPLICATED 05/10/2017 YESSENIA MILLARD APRN Ot K21.9 GASTRO-ESOPHAGEAL REFLUX DISEASE WITHOUT 05/10/2017 YESSENIA MILLARD APRN Ot R07.81 PLEURODYNIA 05/10/2017 YESSENIA MILLARD APRN Ot R07.89 OTHER CHEST PAIN 05/10/2017 YESSENIA MILLARD APRN Ot Z87.891 PERSONAL HISTORY OF NICOTINE DEPENDENCE 05/10/2017 YESSENIA MILLARD APRN Ot Z98.51 TUBAL LIGATION STATUS 05/13/2017 YESSENIA MILLARD APRN Ot F31.9 BIPOLAR DISORDER, UNSPECIFIED 05/13/2017 YESSENIA MILLARD APRN Ot F41.9 ANXIETY DISORDER, UNSPECIFIED 05/13/2017 YESSENIA MILLARD APRN Ot F43.10 POST-TRAUMATIC STRESS DISORDER, UNSPECIF 05/13/2017 YESSENIA MILLARD APRN Ot G62.9 POLYNEUROPATHY, UNSPECIFIED 05/13/2017 YESSENIA MILLARD APRN Ot J45.909 UNSPECIFIED ASTHMA, UNCOMPLICATED 05/13/2017 YESSENIA MILLARD APRN Ot K21.9 GASTRO-ESOPHAGEAL REFLUX DISEASE WITHOUT 05/13/2017 YESSENIA MILLARD APRN Ot R07.81 PLEURODYNIA 05/13/2017 YESSENIA MILLARD APRN Ot R07.89 OTHER CHEST PAIN 05/13/2017 YESSENIA MILLARD APRN Ot Z87.891 PERSONAL HISTORY OF NICOTINE DEPENDENCE 05/13/2017 YESSENIA MILLARD APRN Ot Z98.51 TUBAL LIGATION STATUS Procedures Code [place] [address] ROUTINE VENIPUNCTURE 08/05/2012 30591 [facility] 08/05/2012 26341 HIV ANTIBODIES (RML) 08/05/2012 72797 CULTURE UROGENITAL 08/05/2012 11807 GC/CHLAM PROBE ([facility]) 08/05/2012 30405 TRICHOMONAS (IN-HOUSE) 08/05/2012 33075 PAP SMEAR 2012 Q0091 PAP SMEAR OBTAIN SMEAR 08/05/2012 07563 ROUTINE VENIPUNCTURE 07/09/2013 69638 XRAY KNEE RIGHT 3 VIEWS 07/09/2013 Orthopedi Terri Munroe 07/09/2013 56974 A1C (IN-HOUSE) 45834 CBC 07/09/2013 6488258 GFR CALC (RESULT ONLY) 07/09/2013 09296 CMP 07/09/2013 24113 LIPID PANEL 07/09 32547 TSH 07/09/2013 18001 JOINT INJECTION- LARGE JOINT (SPECIFY MEDCIN DESCRIPTION) 09/03/2013 J1040 DEPO MEDROL 80 MG INJ 09/29/2013 21703 THERAPUTIC INJ SQ/IM 09/29/2013 55256 THERAPUTIC INJ SQ/IM 12/01/2013 J1040 DEPO MEDROL 80 MG INJ 12/01/2013 40947 JOINT INJECTION- LARGE JOINT (SPECIFY MEDCIN DESCRIPTION) 01/07/2014 48227 CERUMEN REMOVAL 04/30/2014 12874 PSYCH DIAGNOSTIC EVALUATION 08/09/2014 04138 A1C (IN-HOUSE) 82705 PSYTX PT&/FAMILY 45 MINUTES 09/28/2014 23301 PSYCH DIAGNOSTIC EVALUATION 10/01/2014 Results Encounters ACCT No. Visit Date/Time Discharge Status Pt. Type Provider Facility Loc./Unit Complaint [id number] 09/28/2014 11:03:00 09/28/2014 23: 59:59 CLS Outpatient KENYETTA NORRIS [id number] 09/08/2014 10:00:00 09/08/2014 23: 59:59 CLS Outpatient DIANE ANGELA [id number] 08/12/2014 14:01:00 08/12/2014 23: 59:59 CLS Outpatient MILIND CHU APRN [id number] 08/09/2014 13:05:00 08/09/2014 23: 59:59 CLS Outpatient KENYETTA NORRIS [id number] 07/08/2014 13:35:00 07/08/2014 23: 59:59 CLS Outpatient TERRI MUNROE APRN [id number] 07/06/2014 16:39:00 07/06/2014 23: 59:59 CLS Outpatient EVANS SCHRADER APRN [id number] 04/26/2014 14:30:00 04/26/2014 23: 59:59 CLS Outpatient ORLY JOYNER APRN [id number] 01/07/2014 13:53:00 01/07/2014 23: 59:59 CLS Outpatient GUZMAN FORD DO [id number] 12/17/2013 09:35:00 12/17/2013 23: 59:59 CLS Outpatient EVANS SCHRADER APRN [id number] 12/01/2013 08:04:00 12/01/2013 23: 59:59 CLS Outpatient ALICE MARTINS APRN [id number] 11/10/2013 15:47:00 11/10/2013 23: 59:59 CLS Outpatient KASSY DURANT APRN [id number] 11/05/2013 12:30:00 11/05/2013 23: 59:59 CLS Outpatient GUZMAN FORD DO [id number] 09/29/2013 10:30:00 09/29/2013 23: 59:59 CLS Outpatient ALICE MARTINS APRN [id number] 09/15/2013 15:51:00 09/15/2013 23: 59:59 CLS Outpatient EVANS SCHRADER APRN [place] [id number] 09/03/2013 15:05:00 09/03/2013 23: 59:59 CLS Outpatient GUZMAN FORD DO Araceli [id number] 09/01/2013 13:44:00 09/01/2013 23: 59:59 CLS Outpatient CARLEEN MACHINE II CUTTERKASSY Bill S [id number] 07/09/2013 12:12:00 07/09/2013 23: 59:59 CLS Outpatient CARLEEN MACHINE II CUTTERKASSY Bill S [id number] 10/01/2012 07:56:00 10/01/2012 23: 59:59 CLS Outpatient NOEMÍ MCCLURE MD, KIARA Rebolledo [id number] 08/05/2012 10:40:00 08/05/2012 23: 59:59 CLS Outpatient GUZMAN FORD DO [id number] 05/31/2017 12:14:00 2016 23:59:59 CLS Preadmit FLORA VILLANUEVA, MARCO ANTONIO Andre [facility] RAD R76.8 POSITIVE JOSE [id number] 05/10/2017 13:13:00 2016 13:59:00 DIS Emergency YESSENIA MILLARD MACHINE II CUTTER [facility] ER LT RIB PAIN [id number] 04/16/2017 10:14:00 2016 13:00:00 DIS Outpatient RESHMA WETZEL DO [facility] ENDO HX OF ANEMIA [id number] 04/12/2017 05:30:00 2016 11:33:00 DIS Outpatient RESHMA WETZEL DO [facility] PREOP HX OF ANEMIA [id number] 01/18/2016 11:38:00 2015 16:00:00 DIS Outpatient ARCHANA VILLANUEVA, CAESAR Brock [facility] SDC RIGHT TORN MENISCUS [id number] 01/12/2016 14:19:00 2015 15:00:00 DIS Outpatient CAESAR MAGAÑA MD [facility] PREOP RIGHT TORN MENISCUS [id number] 01/08/2016 10:33:00 2015 10:54:00 DIS Emergency YESSENIA MILLARD MACHINE II CUTTER [facility] ER [id number] 12/26/2015 09:03:00 2015 23:59:59 CLS Outpatient CAESAR DAVIES MD [facility] RAD [id number] 12/09/2015 17:10:00 2015 23:59:59 CLS Outpatient SORAYA CHUNYKesha Andre [employer] TECHNICIAN [facility] RAD [id number] 11/24/2015 21:52:00 2015 23:13:00 DIS Emergency YESSENIA MILALRD APRN [facility] ER [id number] 12/03/2014 11:06:00 2014 13:32:00 DIS Emergency YESSENIA MILLARD APRN [facility] ER [id number] 12/03/2013 08:00:00 2013 16:46:00 DIS Outpatient KASSY DURANTP [facility] REHAB [id number] 02/09/2013 08:55:00 2012 23:59:59 CLS Outpatient [id number] 12/03/2014 11:04:00 Document Registration [id number] 12/03/2014 11:04:00 Document Registration [id number] 10/15/2011 12:24:00 Document Registration [id number] 10/14/2011 18:07:00 Document Registration [id number] 08/12/2011 17:18:00 Document Registration [id number] 05/26/2011 18:09:00 Document Registration [id number] 12/12/2009 14:32:00 Document Registration
[2017-06-08] MEDS ORDERED: ACYC400T PO (20:54)
--- NOTE | 2017-06-08 22:07 | ED EENT ---
History of Present Illness General Chief Complaint: Dental Problems/Pain Stated Complaint: TOOTH INFECTION,NAUSEA, STOMACH PAIN Nursing Triage Note: Ambulatory to ER with complaints of dental pain s/p tooth extraction. Patient reports that her dentist advised that she had an infected tooth, gave her antibiotics and then pulled the tooth. Patient reports that she has been nauseated, and also having stomach cramps since having her tooth pulled yesterday. Source: patient Exam Limitations: no limitations History of Present Illness Time seen by provider: 22:07 Allergies and Home Medications Allergies Coded Allergies: meperidine (Unverified Allergy, Mild, SWELLING, 12/12/09) gabapentin (Verified Allergy, Unknown, 11/24/15) naproxen (Verified Allergy, Unknown, NAUSEA, 01/12/16) pregabalin (Verified Allergy, Unknown, 11/24/15) venlafaxine (Verified Allergy, Unknown, 11/24/15) Home Medications Acyclovir 400 Mg Tablet, 400 MG PO FIVE TIMES DAILY, (Reported) Amoxicillin 500 Mg Capsule, 500 MG PO TID for 7 Days, (Reported) Carbamazepine 200 Mg Tablet, 200 MG PO BID, (Reported) takes for neuropathy Cefdinir 300 Mg Capsule, 300 MG PO BID, #10 Ref 0 Prescribed by: TODD DIAS on 06/09/1731 Cetirizine HCl 10 Mg Tablet, 10 MG PO DAILY, (Reported) Cholecalciferol (Vitamin D3) 5,000 Unit Capsule, 5,000 UNIT PO DAILY, (Reported) Cyclobenzaprine HCl 10 Mg Tablet, 10 MG PO TID, (Reported) Famotidine 20 Mg Tablet, 20 MG PO BID, #14 Ref 0 Prescribed by: TODD DIAS on 06/09/1729 Omeprazole 40 Mg Capsule.dr, 40 MG PO BID, (Reported) Ondansetron 8 Mg Tab.rapdis, 8 MG PO Q6H PRN for NAUSEA/VOMITING-1ST LINE, #10 Ref 0 Prescribed by: TODD DIAS on 06/09/1729 Pilocarpine 5 Mg Tab, 5 MG PO TID, (Reported) Past Ndhzran-Heeazu-Usrfdd Hx Patient Social History Alcohol Use: Occasionally Uses Number of Drinks Today: HH Alcohol Beverage of Choice: Wine Recreational Drug Use: No Smoking Status: Former Smoker Type Used: Cigarettes Former Smoker, Quit: Apr 29, 2015 2nd Hand Smoke Exposure: No Recent Foreign Travel: No Contact w/Someone Who Travel: No Recent Infectious Disease Expo: No Recent Hopitalizations: No Physical Abuse: No Sexual Abuse: No Mistreated: No Fear: No Immunizations Up To Date Tetanus Booster (TDap): Unknown Date of Influenza Vaccine: Aug 10, 2011 Seasonal Allergies Seasonal Allergies: Yes Surgeries History of Surgeries: Yes (leep procedure, R knee scope, EGD, COLONOSCOPY) Surgeries: Gallbladder, Tubal Ligation Respiratory History of Respiratory Disorde: Yes (excercised induced asthma) Respiratory Disorders: Asthma Currently Using CPAP: No Currently Using BIPAP: No Cardiovascular History of Cardiac Disorders: No Neurological History of Neurological Disord: Yes Neurological Disorders: Neuropathy 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 System Hx 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 Disorders: No Sexually Transmitted Disease: No Female 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 Disorders: Denies 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 Genitourinary History of Genitourinary Disor: No Gastrointestinal History of Gastrointestinal Di: Yes Gastrointestinal Disorders: Gastroesophageal Reflux Musculoskeletal History of Musculoskeletal Dis: Yes (osteoarthritis, chronic fatique syndrome) Musculoskeletal Disorders: Arthritis, Fibromyalgia, Chronic Back Pain Endocrine History of Endocrine Disorders: No HEENT HEENT Disorders: Tinnitis Hearing Impairment: Deaf Cancer History of Cancer: No Psychosocial History of Psychiatric Problem: Yes (mood disorder) Behavioral Health Disorders: Anxiety, PTSD, Bipolar, Depression Suicide Risk Score: 0 Integumentary History of Skin or Integumenta: Yes Skin/Integumentary Disorders: Eczema, Pruritis Blood Transfusions History of Blood Disorders: No Physical Exam Vital Signs Vital Sign - Last 12Hours 06/08/17 20:46 Temp 98.4 Pulse 86 Resp 18 B/P (MAP) 136/77 (96) Pulse Ox 100 O2 Delivery Room Air Progress/Results/Core Measures Results/Orders My Orders Orders - TODD DIAS Ondansetron Oral Dissolve Tab (Zofran (06/08/17 22:52) Fentanyl Injection (Sublimaze Injection (06/08/17 22:52) Rx-Ondansetron Po (Rx-Zofran Po) (06/09/17 00:27) Vital Signs/I&O Vital Sign - Last 12Hours 06/08/17 20:46 Temp 98.4 Pulse 86 Resp 18 B/P (MAP) 136/77 (96) Pulse Ox 100 O2 Delivery Room Air Blood Pressure Mean: 96 Departure Impression Impression: Primary Impression: Nausea alone Additional Impression: History of recent dental procedure Disposition: HOME, SELF-CARE Condition: Improved Departure-Patient Inst. Decision time for Depature: 00:29 Referrals: GUZMAN FORD DO (PCP) Primary Care Physician MILIND CHU (Family) Primary Care Physician Patient Instructions: Nausea and Vomiting, Adult Add. Discharge Instructions: All discharge instructions reviewed with patient and/or family. Voiced understanding. Medications as instructed. Stop the amoxicillin and acyclovir. Clear liquid diet until symptoms improve, then increase diet slowly to a low-fat , bland diet. Avoid spicy and fatty foods. Ice packs or warm packs as needed. Tylenol extra strength [id number] as directed for pain. Follow-up with [facility] tomorrow or Saturday as an outpatient for recheck. Call first in the morning for appointment time. Follow-up with your dentist for recheck this week. Return to the emergency department for worsened nausea, vomiting, fever, facial swelling, difficulty swallowing, difficulty breathing, vomiting blood, black stools, or any other concerns. Scripts Cefdinir (Cefdinir) 300 Mg Capsule 300 MG PO BID, #10 CAP 0 Refills Prov: TODD DIAS 06/09/17 Famotidine (Pepcid) 20 Mg Tablet 20 MG PO BID, #14 TAB 0 Refills Prov: TODD DIAS 06/09/17 Ondansetron (Ondansetron Odt) 8 Mg Tab.rapdis 8 MG PO Q6H Y for NAUSEA/VOMITING-1ST LINE, #10 TAB 0 Refills Prov: TODD DIAS 06/09/17 TODD DIAS Jun 08, 2017 22:07
[2017-06-08] MEDS ORDERED: ONDANSETRON 4 MG (ZOFRAN) ORAL DISSOLVE TAB SL STA (22:52)
[2017-06-08] MEDS ORDERED: fentaNYL INJECTION 100 MCG/2 ML AMP IM STA (22:52)
[2017-06-09] MEDS ORDERED: RX-ONDANSETRON 4 MG ODT (ZOFRAN) PPK #4 PO STA (00:27)
[2017-06-09] MEDS ORDERED: ONDA8TAB13 PO ×2 (00:30→00:53)
[2017-06-09] MEDS ORDERED: FAMO-119 PO ×2 (00:30→00:53)
[2017-06-09] MEDS ORDERED: CEFD300C3 PO ×2 (00:32→00:53)
[2017-06-09 00:50] VITALS: BP 134/91
== END 2017-06-09 00:50 | disposition home or self-care (01) ==
LOC: EDUNIT# 20:01 → ER 20:02
DX: R11.0 Nausea (principal); F43.10 Post-traumatic stress disorder, unspecified; F41.9 Anxiety disorder, unspecified; F31.9 Bipolar disorder, unspecified; K21.9 Gastro-esophageal reflux disease without esophagitis; G62.9 Polyneuropathy, unspecified; M19.90 Unspecified osteoarthritis, unspecified site; J45.909 Unspecified asthma, uncomplicated; Z98.51 Tubal ligation status; Z98.818 Other dental procedure status; Z87.891 Personal history of nicotine dependence
CPT/HCPCS: 99284

== ENCOUNTER → 2017-06-25 | Outpatient (CLI) | payer MEDICAID ==
[~2017-06-25] MED LIST changes: +ACYC400T PO; +CEFD300C3 PO; +FAMO-119 PO; +ONDA8TAB13 PO
--- NOTE | 2017-06-25 13:07 | Diagnostic Imaging Report ---
CLINICAL INDICATION: Patient with positive JOSE. COMPARISONS: None. FINDINGS: THYROID NODULES: None. THYROID GLAND: The thyroid gland has normal size, shape and echogenicity. The right lobe measures 4.6 cm x 1.9 cm x 3.1 cm and the left lobe measures 5.0 cm x 1.5 cm x 2.1 cm in their three dimensions. ISTHMUS: The isthmus is unremarkable and measures 4 mm in thickness. IMPRESSION: Unremarkable thyroid ultrasound. Dictated by: Dictated on workstation # [id number]
== END ==
LOC: RAD 12:22
PROVIDERS: ATTEND Internal Medicine Rheumatology
DX: R76.8 Other specified abnormal immunological findings in serum (principal); N92.1 Excessive and frequent menstruation with irregular cycle; R68.2 Dry mouth, unspecified
CPT/HCPCS: 76536

== ENCOUNTER → 2017-08-06 | Outpatient (CLI) | payer MEDICAID ==
[~2017-08-06] MED LIST changes: +HYDR-34 PO; -HYDR-3816 PO
--- NOTE | 2017-08-06 14:39 | Diagnostic Imaging Report ---
EXAMINATION: Pelvic ultrasound. INDICATION: Uterine bleeding. COMPARISON: There are no prior studies available for comparison. FINDINGS: The uterus is nongravid and prominent measuring 9.7 x 6.9 x 4.9 cm. The endometrial lining is thickened measuring 12 mm (normal 5 mm or less). This finding is nonspecific. Correlation with the patient's menstrual cycle would be recommended. There is no focal mass involving the uterus to suggest a fibroid. Neither ovary was identified. There is no pelvic mass or free fluid collection visualized. IMPRESSION: 1. The uterus is prominent, but there is no focal mass involving the uterus to suggest a fibroid. 2. The endometrial lining is slightly thickened, but this finding is nonspecific. Correlation with the patient's menstrual cycle would be recommended. 3. The ovaries were not visualized. Dictated by: Dictated on workstation # [id number]
== END ==
LOC: RAD 12:28
DX: N93.9 Abnormal uterine and vaginal bleeding, unspecified (principal); N94.6 Dysmenorrhea, unspecified
CPT/HCPCS: 76830; 76856

== ENCOUNTER 2018-03-06 11:15 | Outpatient (RCR) | payer MEDICAID ==
[~2018-03-06 11:15] MED LIST changes: +HYDR-4226 PO
== END 2018-03-06 12:08 | disposition home or self-care (01) ==
PROVIDERS: ATTEND Nurse Practitioner Primary Care
DX: M54.12 Radiculopathy, cervical region (principal); G60.3 Idiopathic progressive neuropathy

== ENCOUNTER 2018-03-07 08:50 | Outpatient (CLI) | payer MEDICAID | END 2018-03-07 09:20 | disposition home or self-care (01) | LOC: SLEEP 08:50 | PROVIDERS: ATTEND Surgery | DX: G47.10 Hypersomnia, unspecified (principal); F39 Unspecified mood [affective] disorder ==

== ENCOUNTER 2018-06-15 18:53 | Emergency (ER) | payer MEDICAID ==
[~2018-06-15] VITALS: Ht 168.9 cm; Wt 156.5 kg
--- OUTSIDE RECORDS SUMMARY | 2018-06-15 18:58 | XMS REPORT | Clinical Summary ---
Author Author [facility] Organization 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
--- OUTSIDE RECORDS SUMMARY | 2018-06-15 18:59 | XMS REPORT | Encounter Summary ---
Author Author [facility] Organization [facility] Address Unknown Phone Unavailable Care Team Providers Care Toolroom Checker Name Role Phone Tai Son MD Unavailable Shelbi Alonso MD Unavailable Tab Norman DO Unavailable Aiden Mayfield MD Unavailable Maribel Robertson RN Unavailable Unavailable Donna Longo APRN PCP Encounter Details Care Team Description Date Type Department Luanne Murphy MD [address] [place] [address] Mixed incontinence 05/21/2018 Hospital Clinlab Encounter [facility] [address] [place] [address] Social History Date Tobacco Use Types Packs/Day Years Used Never Smoker Smokeless Tobacco: Never Used Alcohol Use Drinks/Week oz/Week Comments No 0 Standard 0.0 drinks three times a year now drinks or equivalent Sex Assigned at Date Recorded Not on file Industry Job Start Date Occupation Not on file Not on file Not on file Travel End Travel History Travel Start No recent travel history available. as of this encounter Functional Status Date of Assessment Functional Status Response 08/01/2016 Does the patient have a hearing impairment: No 08/01/2016 Does the patient have a visual impairment: Yes 08/01/2016 Does the patient have impaired ambulation: Yes 08/01/2016 Does the patient have an activity of daily living No (ADL) impairment: 08/01/2016 Does the patient have an instrumental activity of No daily living (IADL) impairment: Date of Assessment Cognitive Status Response 08/01/2016 Does the patient have a cognitive impairment: No as of this encounter Medications at Time of Discharge Start Date End Date Medication Sig Dispensed Refills 11/15/2016 carBAMazepine (TEGRETOL) Take 1 Tab by 60 Tab 2 200 mg tabletIndications: mouth twice Fibromyalgia, Carpal daily. tunnel syndrome of left wrist, Paresthesia of both feet clobetasol (TEMOVATE) Apply 0 0.05 % topical cream topically to affected area twice daily. 02/24/2016 ergocalciferol (VITAMIN Take 1 Cap by 8 Cap 0 D) 50,000 unit mouth every 7 capsuleIndications: days. After vitamin D deficiency eight weeks, recheck blood level. Indications: VITAMIN D DEFICIENCY fluticasone (FLONASE) 50 Apply to 0 mcg/actuation nasal spray each nostril as directed daily. Shake bottle gently before using. HYDROcodone/acetaminophen Take 1 Tab by 0 (NORCO) 7.5/325 mg tablet mouth every 6 hours as needed for Pain hydrocortisone (CORTEF) 5 Take 20 mg by 0 mg tab mouth daily with breakfast. 08/09/2017 norethindrone(+) Take 1 tablet 90 tablet 3 (AYGESTIN) 5 mg by mouth tabIndications: Abnormal daily. uterine bleeding (AUB) omeprazole DR(+) Take 40 mg by 0 (PRILOSEC) 40 mg capsule mouth twice daily. 11/21/2016 pilocarpine (SALAGEN) 5 Take 1 Tab by 100 Tab 3 mg tabletIndications: mouth three Xerostomia times daily. Indications: XEROSTOMIA rOPINIRole (REQUIP) 0.5 Take 0.5 mg 0 mg tablet by mouth three times daily. tiZANidine (ZANAFLEX) 4 Take 4 mg by 0 mg capsule mouth three times daily. vitamins, B complex tab Take 1 Tab by 0 mouth daily. 06/04/2018 amitriptyline (ELAVIL) 10 Take 10 mg by 0 mg tablet mouth at bedtime as needed. 06/04/2018 cyclobenzaprine Take 10 mg by 0 (FLEXERIL) 10 mg tablet mouth three times daily as needed for Muscle Cramps. 06/04/2018 phentermine-topiramate Take 1 Cap by 0 (QSYMIA) 3.75-23 mg mouth every capsule morning. 06/04/2018 sertraline (ZOLOFT) 100 Take 100 mg 0 mg tablet by mouth daily. 06/04/2018 traMADol (ULTRAM) 50 mg Take 50 mg by 0 tablet mouth every 6 hours as needed for Pain. as of this encounter Plan of Treatment Care Team Description Date Type Specialty Luanne Murphy MD [address] [place] [address] Abnormal uterine bleeding (AUB) 07/24/2018 Hospital Encounter Luanne Murphy MD [address] [place] [address] HYSTEROSCOPY WITH ENDOMETRIAL BIOPSY/ POLYPECTOMY WITH/ WITHOUT DILATION AND CURETTAGE WITH MYOSURE 07/24/2018 Surgery as of this encounter Procedures Comments Procedure Name Priority Date/Time Associated Diagnosis UA REFLEX CULTURE LABEL Routine 05/21/2018 Urinary incontinence, 1:50 PM HIGH TENSION TESTER mixed URINALYSIS MICROSCOPIC Routine 05/21/2018 Urinary incontinence, REFLEX TO CULTURE 1:50 PM HIGH TENSION TESTER mixed URINALYSIS DIPSTICK Routine 05/21/2018 Urinary incontinence, REFLEX TO CULTURE 1:50 PM HIGH TENSION TESTER mixed in this encounter Results * URINALYSIS MICROSCOPIC REFLEX TO CULTURE (05/21/2018 1:50 PM HIGH TENSION TESTER) WBCs,UA 0-2 0 - 2 /HPF [facility] RBCs,UA 2-10 0 - 3 /HPF [facility] Comment,UA Urine submitted for reflex [facility] culture if criteria are met:WBC>10, positive nitrite and/or >=1+ leukocyte esterase. If quantity is not sufficient, an addendum will follow. MucousUA 4+ [facility] Bacteria,UA FEW (A) NEG-NEG [facility] Squamous Epithelial Cells 0-2 0 - 5 [facility] Specimen Urine Performing Organization Address City/State/Zipcode Phone Number [facility] [address] [place] [address] * URINALYSIS DIPSTICK REFLEX TO CULTURE (05/21/2018 1:50 PM HIGH TENSION TESTER) Color,UA YELLOW [facility] Turbidity,UA CLEAR CLEAR-CLEAR [facility] Specific [place]-Urine 1.031 1.003 - 1.035 [facility] pH,UA 5.0 5.0 - 8.0 [facility] Protein,UA 1+ (A) NEG-NEG [facility] Glucose,UA NEG NEG-NEG [facility] Ketones,UA TRACE (A) NEG-NEG [facility] Bilirubin,UA NEG NEG-NEG [facility] Blood,UA NEG NEG-NEG [facility] Urobilinogen,UA INCREASED (A) NORM-NORMAL [facility] Nitrite,UA NEG NEG-NEG [facility] Leukocytes,UA NEG NEG-NEG [facility] Urine Ascorbic Acid, UA NEG NEG-NEG [facility] Specimen Urine Performing Organization Address City/[facility]/Zipcode Phone Number MAIN LAB [address] [place] [address] * UA REFLEX CULTURE LABEL (05/21/2018 1:50 PM HIGH TENSION TESTER) UA Reflex Culture LAB LABEL [facility] Specimen Urine Performing Organization Address [facility] Phone Number [facility] [address] [place] [address] in this encounter Visit Diagnoses Diagnosis Urinary incontinence, mixed Mixed incontinence urge and stress (male)(female) in this encounter
--- OUTSIDE RECORDS SUMMARY | 2018-06-15 18:59 | XMS REPORT | Encounter Summary ---
Author Author [facility] Organization [facility] Address Unknown Phone Unavailable Care Team Providers Care Ic Engineer Name Role Phone Tai Son MD Unavailable Shelbi Alonso MD Unavailable Tab Norman DO Unavailable Aiden Mayfield MD Unavailable Maribel Robertson RN Unavailable Unavailable Donna Longo APRN PCP Reason for Referral * Consult, Test & Treat (Routine) Referred By Contact Referred To Contact Status Reason Specialty Diagnoses / Procedures Emerald Arita MD [address] [facility] [address] [place] [address] [facility] [address] [place] [address] Authorized Specialty Services Endocrinology, Diagnoses Required Metabolism & Anti-TPO Genetics antibodies present Positive JOSE (antinuclear antibody) Reason for Visit * Reason Comments Results Encounter Details Care Team Description Date Type Department Emerald Arita MD [address] [facility] [address] [place] [address] [phone] Results 04/30/2018 Telephone [id number] [place] [address] Social History Date Tobacco Use Types Packs/Day [...] cognitive impairment: No as of this encounter Miscellaneous Notes * Telephone Encounter - Emerald Arita MD - 04/30/2018 1:02 PM CDT Endocrine referral signed. * Telephone Encounter - Vero Cruz RN - 04/30/2018 9:17 AM CDT Called and advised patient per results and recommendations below, patient verbalized understanding, is interested in referral at . Provided patient with phone number for Endocrinology to follow-up on referral if she does not receive a call in 1-2 weeks to schedule. Routing to Dr. Arita to approval referral (see pending order). ----- Message from Emerald Arita MD sent at 2018 10:03 AM CDT ----- Dear Vero, Could I please get your help to update Ms. Randall regarding the results. The celiac disease testing via tTG test was negative. The TPO antibodies which can be associated with autoimmune thyroid disease continue to be elevated. The thyroid stimulating hormone itself is normal. The CRP is slightly elevated at 1.12 but improved compared to prior values. The hemoglobin demonstrates mild anemia which is similar to prior values. The urinalysis was normal. The double stranded DNA antibody, test associated with lupus, was negative. The complements were not low (which can be associated with diseases like lupus). She had discussed potential evaluation with Endocrinology - would she like me to refer to [facility]? Thank you so much, Emerald in this encounter Plan of Treatment Care Team Description Date Type Specialty Luanne Murphy MD [address] [place] [address] Abnormal uterine bleeding (AUB) 07/24/2018 Hospital Encounter Luanne Murphy MD [address] [place] [address] HYSTEROSCOPY WITH ENDOMETRIAL BIOPSY/ POLYPECTOMY WITH/ WITHOUT DILATION AND CURETTAGE WITH MYOSURE 07/24/2018 Surgery Order Schedule Name Priority Associated Diagnoses Ordered: 04/30/2018 AMB REFERRAL TO ENDOCRINOLOGY Routine Anti-TPO antibodies present Positive JOSE (antinuclear antibody) as of this encounter Visit Diagnoses Diagnosis Anti-TPO antibodies present - Primary Other and unspecified nonspecific immunological findings Positive JOSE (antinuclear antibody) Other and unspecified nonspecific immunological findings in this encounter
--- OUTSIDE RECORDS SUMMARY | 2018-06-15 18:59 | XMS REPORT | Encounter Summary ---
Author Author [facility] Organization [facility] Address Unknown Phone Unavailable Care Team Providers Care Energy And Conservation Technician Name Role Phone Tai Son MD Unavailable Shelbi Alonso MD Unavailable Tab Norman DO Unavailable Aiden Mayfield MD Unavailable Maribel Robertson RN Unavailable Unavailable Donna Longo APRN PCP Reason for Referral * Consult, Test & Treat Referred By Contact Referred To Contact Status Reason Specialty Diagnoses / Procedures Luanne Murphy MD [address] [place] [address] Zeina Lincoln No Auth Needed Specialty Services Genetics / Diagnoses Required Oncology Family history of cancer Z80.9 (ICD-10-CM) - Family history of cancer * Consult, Test & Treat Referred By Contact Referred To Contact Status Reason Specialty Diagnoses / Procedures Luanne Murphy MD [address] [place] [address] Coco Ferrer, PT [address] [address] New Request Specialty Services Rehabilitation Diagnoses Required Urinary incontinence, mixed Anal pain Reason for Visit * Reason Comments Abnormal Uterine Bleeding Encounter Details Care Team Description Date Type Department Luanne Murphy MD [address] [place] [address] [phone] Abnormal uterine bleeding (AUB) (Primary Dx); BMI 50.0-59.9, adult (HCC); Urinary incontinence, mixed; Anal pain; Family history of cancer 05/21/2018 Office Visit [facility] Physicians - OBGYN [facility] Level 5B [address] [place] [address] Social History Date Tobacco Use Types Packs/Day [...] travel history available. as of this encounter Last Filed Vital Signs Time Taken Vital Sign Reading 05/21/2018 10:16 AM LOBSTERMAN Blood Pressure 116/80 05/21/2018 10:16 AM LOBSTERMAN Pulse 109 - Temperature - - Respiratory Rate - - Oxygen Saturation - - Inhaled Oxygen - Concentration 05/21/2018 10:16 AM LOBSTERMAN Weight 156.8 kg (345 lb 9.6 oz) 05/21/2018 10:16 AM LOBSTERMAN Height 172.7 cm (5' 8") 05/21/2018 10:16 AM LOBSTERMAN Body Mass Index 52.55 in this encounter Functional Status Date of Assessment [...] cognitive impairment: No as of this encounter Progress Notes * Luanne Murphy MD - 05/21/2018 10:00 AM LOBSTERMAN Date of Service: 05/21/2018 Subjective: Prisca Randall is a 38 y.o. female. History of Present Illness P2 here to f/u AUB and progressive dysmenorrhea. Last seen 08/2017 - rx'ed aygestin. Patient NEVER took medication. Patient reports gaining >100 lbs on DMPA. She does not like the idea of an IUD - very reluctant to try Mirena. Recent labs: hgb 11, MCV 73. TSH wnl EMB 05/2017 [facility] [facility] outside radiology 2017: Ut 10 cm, no focal masses, ovaries not visualized. Contraception method tubal ligation, abstinence C/o increase urinary urgency and frequency. Low voiding volume. + stress urinary incontinence. No dysuria. No hematuria. C/o pulsating anal pain with bowel movements. Has 4-5 bowel movements per day. Denies straining. No constipation. No blood per rectum. Pap 05/2017: cotesting neg. Hx of LEEP in 2004. Scheduled for gastric bypass in May 2018. PMHx sign for Chronic pain. Positive JOSE in the setting of history of fibromyalgia Not currently working. Lives a simple life, minimizes stress. Review of Systems Constitutional: Positive for fatigue and unexpected weight change. Negative for fever. HENT: Positive for voice change. Respiratory: Positive for shortness of breath. Negative for cough. Cardiovascular: Negative for chest pain and leg swelling. Gastrointestinal: Positive for constipation, diarrhea and nausea. Negative for abdominal pain, blood in stool and vomiting. Genitourinary: Positive for difficulty urinating, frequency, menstrual problem, pelvic pain and vaginal discharge. Negative for dyspareunia, dysuria, enuresis, genital sores, hematuria, urgency, vaginal bleeding and vaginal pain. Musculoskeletal: Positive for arthralgias and back pain. Skin: Positive for rash. Neurological: Positive for light-headedness. Negative for headaches. Hematological: Negative for adenopathy. Bruises/bleeds easily. Psychiatric/Behavioral: Positive for confusion. The patient is nervous/anxious. Objective: amitriptyline (ELAVIL) 10 mg tablet Take 10 mg by mouth at bedtime as needed. carBAMazepine (TEGRETOL) 200 mg tablet Take 1 Tab by mouth twice daily. clobetasol (TEMOVATE) 0.05 % topical cream Apply topically to affected area twice daily. cyclobenzaprine (FLEXERIL) 10 mg tablet [...] 20 mg by mouth daily with breakfast. norethindrone(+) (AYGESTIN) 5 mg tab Take 1 tablet by mouth daily. omeprazole DR(+) (PRILOSEC) 40 mg capsule Take 40 mg by mouth twice daily. phentermine-topiramate (QSYMIA) 3.75-23 mg capsule Take 1 Cap by mouth every morning. pilocarpine (SALAGEN) 5 mg tablet Take 1 Tab by mouth three times daily. Indications: XEROSTOMIA rOPINIRole (REQUIP) 0.5 mg tablet Take 0.5 mg by mouth three times daily. sertraline (ZOLOFT) 100 mg tablet Take 100 mg by mouth daily. tiZANidine (ZANAFLEX) 4 mg capsule Take 4 mg by mouth three times daily. traMADol (ULTRAM) 50 mg tablet Take 50 mg by mouth every 6 hours as needed for Pain. vitamins, B complex tab Take 1 Tab by mouth daily. Vitals: 05/21/18 1016 BP: 116/80 Pulse: 109 Weight: (!) 156.8 kg (345 lb 9.6 oz) Height: 172.7 cm (68") Body mass index is 52.55 kg/m. Physical Exam Constitutional: She is oriented to person, place, and time. She appears well- developed and well-nourished. Head: Normocephalic. Neck: Normal range of motion. Cardiovascular: Normal rate. Pulmonary/Chest: Effort normal. Musculoskeletal: Normal range of motion. Neurological: She is alert and oriented to person, place, and time. Psychiatric: She has a normal mood and affect. Assessment and Plan: 1. Abnormal uterine bleeding (AUB) Suspect possible adenomyosis based on progressive dysmenorrhea, slightly enlarged uterus, and midline tenderness. Also likely ovulatory dysfunction 2/2 weight. Recommended another EMB since it has been 1 year. Also recommended Mirena IUD again. Discussed the need for endometrial protection. Patient willing to try Mirena, but NOT without anesthesia. Refuses EMB in office as well- needs anesthesia. Plan for hsc, D&C, Mirena IUD insertion. Discussed r/b/a of surgery. Risks mentioned included cramping pain, bleeding, anxiety, uterine perforation. All tissue to be sent to pathology 2. BMI 50.0-59.9, adult (HCC) Weight loss should also help AUB. Discussed that with weight loss she may also become a candidate for surgery. 3. Urinary incontinence, mixed Start with behavioral modifications. Fluid limitation 6-8 glasses/day, bladder friendly diet, timed void w/ bladder training. Referral to pelvic floor PT. - AMB REFERRAL TO PELVIC FLOOR REHAB - URINALYSIS DIPSTICK REFLEX TO CULTURE; Future - URINALYSIS MICROSCOPIC REFLEX TO CULTURE; Future - UA REFLEX CULTURE LABEL; Future 4. Anal pain - AMB REFERRAL TO PELVIC FLOOR REHAB 5. Family history of cancer Patient very concerned b/c of many family members with cancer. She does not know if any of therm have had genetic testing. - AMB REFERRAL TO GENETIC COUNSELING Visit billed by time. Total Time 40 minutes. Estimated [id number] counseling time >50% of visit regarding above issues. TERMAN in this encounter Plan of Treatment Care Team Description Date Type Specialty Luanne Murphy MD [address] [place] [address] [phone] Abnormal uterine bleeding (AUB) 07/24/2018 Hospital Encounter Luanne Murphy MD [address] [place] [address] [phone] HYSTEROSCOPY WITH ENDOMETRIAL BIOPSY/ POLYPECTOMY WITH/ WITHOUT DILATION AND CURETTAGE WITH MYOSURE 07/24/2018 Surgery Order Schedule Name Priority Associated Diagnoses Ordered: 05/21/2018 AMB REFERRAL TO PELVIC FLOOR REHAB Routine Urinary incontinence, mixed Anal pain Ordered: 05/21/2018 AMB REFERRAL TO GENETIC COUNSELING Routine Family history of cancer as of this encounter Results * UA REFLEX CULTURE LABEL (05/21/2018 1:50 PM LOBSTERMAN) UA Reflex Culture LAB LABEL [facility] Specimen Urine Performing Organization Address City/State/Zipcode Phone Number [facility] [address] [place] [address] * URINALYSIS MICROSCOPIC REFLEX TO CULTURE (05/21/2018 1:50 PM LOBSTERMAN) WBCs,UA 0-2 0 - 2 /HPF [facility] [...] MAIN LAB Specimen Urine Performing Organization Address [facility] Phone Number [facility] [address] [place] [address] * URINALYSIS DIPSTICK REFLEX TO CULTURE (05/21/2018 1:50 PM LOBSTERMAN) Color,UA YELLOW [facility] Turbidity,UA CLEAR CLEAR-CLEAR [facility] Specific [place]-Urine 1.031 1.003 - 1.035 [facility] [...] MAIN LAB Specimen Urine Performing Organization Address City/[facility] Phone Number [facility] [address] [place] [address] in this encounter Visit Diagnoses Diagnosis Abnormal uterine bleeding (AUB) - Primary BMI 50.0-59.9, adult (HCC) Body Mass Index 50.0-59.9, adult Urinary incontinence, mixed Mixed incontinence urge and stress (male)(female) Anal pain Anal or rectal pain Family history of cancer Family history of unspecified malignant neoplasm in this encounter
--- OUTSIDE RECORDS SUMMARY | 2018-06-15 18:59 | XMS REPORT | Encounter Summary ---
Author Author [facility] Address Unknown Phone Unavailable Care Team Providers Care Farm Specialist Name Role Phone Tai Son MD Unavailable Shelbi Alonso MD Unavailable Tab Norman DO Unavailable Aiden Mayfield MD Unavailable Maribel Robertson RN Unavailable Unavailable Donna Longo APRN PCP Reason for Referral * Radiology Services (Routine) Referred By Contact Referred To Contact Status Reason Specialty Diagnoses / Procedures Horacio Merrill MD [address] [facility] [address] [place] [address] New Request Radiology Diagnoses Pain in pelvis Rectal pain P rocedures CT ABD/PELV W CONTRAST Reason for Visit * Reason Comments Constipation Nausea Diarrhea Anal Pain * Consult, Test & Treat (Routine) Referred By Contact Referred To Contact Status Reason Specialty Diagnoses / Procedures Emerald Arita MD [address] [facility] [address] [place] [address] [facility] Level 2B [address] [place] [address] No Auth Needed Specialty Services Gastroenterology Diagnoses Required Rectal pain Encounter Details Care Team Description Date Type Department Emerald Arita MD [address] [place] [address] [phone] Horacio Merrill MD [address] [place] [address] Pain in pelvis (Primary Dx); Rectal pain 06/04/2018 Office Visit [facility] - Internal Medicine [facility] [address] [place] [address] Social History Date Tobacco Use Types Packs/Day [...] Vital Signs Time Taken Vital Sign Reading 06/04/2018 2:02 PM TYPEWRITER ALIGNER Blood Pressure 122/86 06/04/2018 2:02 PM TYPEWRITER ALIGNER Pulse 85 06/04/2018 2:02 PM TYPEWRITER ALIGNER Temperature 36.7 C (98.1 F) 06/04/2018 2:02 PM TYPEWRITER ALIGNER Respiratory Rate 18 - Oxygen Saturation - - Inhaled Oxygen - Concentration 06/04/2018 2:02 PM TYPEWRITER ALIGNER Weight 157.4 kg (347 lb) 06/04/2018 2:02 PM TYPEWRITER ALIGNER Height 172.7 cm (5' 8") 06/04/2018 2:02 PM TYPEWRITER ALIGNER Body Mass Index 52.76 in this encounter Functional Status Date of [...] cognitive impairment: No as of this encounter Patient Instructions * Patient Instructions* Caryl Ruiz RN - 06/04/2018 1:40 PM TYPEWRITER ALIGNER A CT has been ordered for you, you will schedule this at check out today. If you do not schedule at check or need to cancel/reschedule please call radiology scheduling at [phone]. Please increase your amitriptyline to 25mg daily. If you have any questions or concerns please contact Dr. Madina Hutson 's nurse, at [phone]. WRITER ALIGNER in this encounter Progress Notes * Horacio Merrill MD - 06/04/2018 1:40 PM TYPEWRITER ALIGNER Subjective: History of Present Illness Prisca Randall is a 38 y.o. female. This is a 38-year-old -Armenian female with history of fibromyalgia who is been complaining of some rectal pain and spasm. She has these episodes once every couple of months. However recently she had 3 episodes in 2 weeks. This starts usually when she has the urge to have a bowel movement. She feels that her rectum goes into a spasm and then she cannot evacuate. She is on tizanidine as well as amitriptyline 10 g p.o. nightly. She had an upper endoscopy that was normal except for a small hiatal hernia as per the patient. Colonoscopy in December 2017 was normal. We will try to get the reports for own review. Her appetite is good and weight is stable. She is scheduled for a gastric sleeve surgery for weight loss. She also has been abstaining from gluten as she feels that this causes rash by abstaining the symptom has resolved. Social historyshe is single, has 2 children, does not smoke or drink alcohol and is not working Family history grandmother had lymphoma Review of Systems Constitutional: Positive for appetite change, chills, diaphoresis and fatigue. HENT: Positive for dental problem, hearing loss, mouth sores, rhinorrhea and tinnitus. Eyes: Positive for photophobia and discharge. Respiratory: Positive for shortness of breath. Cardiovascular: Positive for leg swelling. Gastrointestinal: Positive for constipation, diarrhea, nausea and rectal pain. Endocrine: Positive for heat intolerance, polydipsia and polyuria. Genitourinary: Positive for frequency, menstrual problem, pelvic pain and urgency. Musculoskeletal: Positive for back pain, myalgias, neck pain and neck stiffness. Skin: Positive for rash. Allergic/Immunologic: Positive for environmental allergies. Neurological: Positive for dizziness, speech difficulty, light-headedness, numbness and headaches. Hematological: Bruises/bleeds easily. Psychiatric/Behavioral: Positive for sleep disturbance. The patient is nervous/ anxious. All other systems reviewed and are negative. Comprehensive 10 point ROS taken, and otherwise negative except as above. Active Ambulatory Problems Diagnosis Date Noted Bipolar affective disorder ([facility]) 08/19/2007 Alcoholism ([facility]) 08/19/2007 Obesity 08/19/2007 Fibromyalgia 12/21/2015 Malaise and fatigue 02/22/2016 Hypovitaminosis D 02/22/2016 Idiopathic polyneuropathy 04/17/2016 JOSE positive 04/17/2016 Chronic nonintractable headache 04/17/2016 Heat intolerance 04/17/2016 Chronic pain of left knee 08/01/2016 Resolved Ambulatory Problems Diagnosis Date Noted No Resolved Ambulatory Problems Past Medical History: Diagnosis Date Anemia Anxiety disorder Arthritis Asthma Bipolar affective disorder ([facility]) Cancer ([facility]) Depression Fibromyalgia History of human papillomavirus infection Hx: recurrent pneumonia Hypertension OA (osteoarthritis) Social History Social History Marital status: Single Spouse name: N/A Number of children: N/A Years of education: N/A Social History Main Topics Smoking status: Never Smoker Smokeless tobacco: Never Used Alcohol use No Comment: drinks three times a year now Drug use: No Sexual activity: No Other Topics Concern Not on file Social History Narrative No narrative on file Family History Problem Relation Age of Onset Heart Attack Mother Heart Disease Mother Arthritis Father Autism Brother Anxiety Son Inflammatory Bowel Disease Son Allergy-severe Son Fibromyalgia Son Other Son Chronic Fatigue Syndrome Allergy-severe Daughter Cancer Other Colon/ Breast Arthritis Other Diabetes Other Stroke Other Allergies Allergen Reactions Meperidine SWELLING Cymbalta [Duloxetine] NAUSEA AND VOMITING Effexor [Venlafaxine] NAUSEA ONLY Lyrica [Pregabalin] NAUSEA AND VOMITING Naproxen NAUSEA AND VOMITING Neurontin [Gabapentin] NAUSEA AND VOMITING Patient Active Problem List Diagnosis Date Noted Chronic pain of left knee 08/01/2016 Idiopathic polyneuropathy 04/17/2016 JOSE positive 04/17/2016 Chronic nonintractable headache 04/17/2016 Heat intolerance 04/17/2016 Malaise and fatigue 02/22/2016 Hypovitaminosis D 02/22/2016 Fibromyalgia 12/21/2015 Bipolar affective disorder ([facility]) 08/19/2007 Alcoholism ([facility]) 08/19/2007 Obesity 08/19/2007 Objective: amitriptyline (ELAVIL) 10 mg tablet Take 10 mg by mouth at bedtime as needed. carBAMazepine (TEGRETOL) 200 mg tablet Take 1 Tab by mouth twice daily. cetirizine (ZYRTEC) 10 mg tablet Take 10 mg by mouth every morning. clobetasol (TEMOVATE) 0.05 % topical cream Apply topically to affected area twice daily. ergocalciferol (VITAMIN D) 50,000 unit capsule Take [...] Take 40 mg by mouth twice daily. pilocarpine (SALAGEN) 5 mg tablet Take 1 Tab by mouth three times daily. Indications: XEROSTOMIA rOPINIRole (REQUIP) 0.5 mg tablet Take 0.5 mg by mouth three times daily. tiZANidine (ZANAFLEX) 4 mg capsule Take 4 mg by mouth three times daily. vitamins, B complex tab Take 1 Tab by mouth daily. Vitals: 06/04/18 1402 BP: 122/86 Pulse: 85 Resp: 18 Temp: 36.7 C (98.1 F) TempSrc: Oral Weight: (!) 157.4 kg (347 lb) Height: 172.7 cm (68") Body mass index is 52.76 kg/m. Physical Exam General appearance alert, cooperative, no distress, appears stated age, obese Head Normocephalic, without obvious abnormality, atraumatic Eyes conjunctivae/corneas clear. EOM's intact. pupils equally round, accommodation normal. Nose Nares normal. No drainage or sinus tenderness. Throat Lips, mucosa, and tongue normal. Teeth and gums normal Neck supple, symmetrical, trachea midline, and no JVD Back symmetric, no curvature. ROM normal. No CVA tenderness Lungs clear to auscultation bilaterally Chest wall no tenderness Heart regular rate and rhythm, S1, S2 normal, no murmur, click, rub or gallop Abdomen soft, non-tender. Bowel sounds normal. No masses, No organomegaly Extremities extremities normal, atraumatic, no cyanosis or edema Pulses 2+ and symmetric Skin Skin color, texture, turgor normal. No rashes or lesions Neurologic Normal Assessment and Plan: This is a 38-year-old -Armenian female with history of fibromyalgia who is been complaining of some rectal pain and spasm. She has these episodes once every couple of months. However recently she had 3 episodes in 2 weeks. This starts usually when she has the urge to have a bowel movement. She feels that her rectum goes into a spasm and then she cannot evacuate. She is on tizanidine as well as amitriptyline 10 g p.o. nightly. She had an upper endoscopy that was normal except for a small hiatal hernia as per the patient. Colonoscopy in December 2017 was normal. We will try to get the reports for own review. Her appetite is good and weight is stable. She is scheduled for a gastric sleeve surgery for weight loss. She also has been abstaining from gluten as she feels that this causes rash by abstaining the symptom has resolved. I discussed the patient that in all probability she has functional pain or due to visceral hyperalgesia. I will schedule her for a CT abdomen and pelvis to rule out any sinister pathology. We will increase amitriptyline to 25 g p.o. nightly. The dose will be escalated further as required. If even then the pain does not improve then we may proceed with an anorectal manometry to rule out any evidence of pelvic floor dysfunction. Follow-up on an as-needed basis. Thank you for allowing us to part spent in her care and please return to call us if have any questions. WRITER ALIGNER in this encounter Miscellaneous Notes * Addendum Note - Horacio Merrill MD - 06/04/2018 1:40 PM TYPEWRITER ALIGNER Addended by: HORACIO MERRILL on: 06/04/2018 04:03 PM Modules accepted: Level of Service WRITER ALIGNER in this encounter Plan of Treatment Care Team Description Date Type Specialty Luanne Murphy MD [address] [place] [address] Abnormal uterine bleeding (AUB) 07/24/2018 Hospital Encounter Luanne Murphy MD [address] [place] [address] HYSTEROSCOPY WITH ENDOMETRIAL BIOPSY/ POLYPECTOMY WITH/ WITHOUT DILATION AND CURETTAGE WITH MYOSURE 07/24/2018 Surgery Order Schedule Name Priority Associated Diagnoses Expected: 06/04/2018 (Approximate), Expires: 06/04/2019 CT ABD/PELV W CONTRAST Routine Pain in pelvis Rectal pain as of this encounter Visit Diagnoses Diagnosis Pain in pelvis - Primary Rectal pain Anal or rectal pain in this encounter
--- OUTSIDE RECORDS SUMMARY | 2018-06-15 18:59 | XMS REPORT | Encounter Summary ---
Author Author [facility] Organization [facility] Address Unknown Phone Unavailable Care Team Providers Care Food And Beverage Order Clerk Name Role Phone Tai Son MD Unavailable Shelbi Alonso MD Unavailable Tab Norman DO Unavailable Aiden Mayfield MD Unavailable Maribel Robertson RN Unavailable Unavailable Donna Longo APRN PCP Encounter Details Care Team Description Date Type Department Luanne Murphy MD [address] [place] [address] Abnormal uterine bleeding (AUB) (Primary Dx) 05/22/2018 Prep for Case [facility] Physicians - OBGYN [facility] Level 5B [address] [place] [address] Social History Date Tobacco Use [...] cognitive impairment: No as of this encounter Plan of Treatment Care Team Description Date Type Specialty Luanne Murphy MD [address] [place] [address] Abnormal uterine bleeding (AUB) 07/24/2018 Hospital Encounter Luanne Murphy MD [address] [place] [address] HYSTEROSCOPY WITH ENDOMETRIAL BIOPSY/ POLYPECTOMY WITH/ WITHOUT DILATION AND CURETTAGE WITH MYOSURE 07/24/2018 Surgery as of this encounter Visit Diagnoses Diagnosis Abnormal uterine bleeding (AUB) - Primary in this encounter
--- OUTSIDE RECORDS SUMMARY | 2018-06-15 18:59 | XMS REPORT | Encounter Summary ---
Author Author [facility] Organization [facility] Address Unknown Phone Unavailable Care Team Providers Care Engineering Inspector Name Role Phone Tai Son MD Unavailable Shelbi Alonso MD Unavailable Tab Norman DO Unavailable Aiden Mayfield MD Unavailable Maribel Robertson RN Unavailable Unavailable Donna Longo APRN PCP Reason for Visit * Reason Comments Error Encounter Details Care Team Description Date Type Department Horacio Painter MD [address] [facility] [address] [place] [address] Error 06/09/2018 Telephone [facility] Physicians [facility] Level 2B [address] [place] [address] Social History Date Tobacco Use [...] encounter Miscellaneous Notes * Telephone Encounter - Cheri Multani LPN - 06/09/2018 3:15 PM MOPHEAD SEWER EAD SEWER in this encounter Plan of Treatment Care Team Description Date Type Specialty Luanne Murphy MD [address] [place] [address] Abnormal uterine bleeding (AUB) 07/24/2018 Hospital Encounter Luanne Murphy MD [address] [place], [place] [id number] HYSTEROSCOPY WITH ENDOMETRIAL BIOPSY/ POLYPECTOMY WITH/ WITHOUT DILATION AND CURETTAGE WITH MYOSURE 07/24/2018 Surgery as of this encounter Visit Diagnoses Not on filein this encounter
--- OUTSIDE RECORDS SUMMARY | 2018-06-15 18:59 | XMS REPORT | Clinical Summary ---
Author Author [facility] Organization [facility] Address Unknown Phone Unavailable Care Team Providers Care Ice Bag Assembler Name Role Phone Tai Son MD Unavailable Shelbi Alonso MD Unavailable Tab Norman DO Unavailable Aiden Mayfield MD Unavailable Maribel Robertson RN Unavailable Unavailable Donna Longo APRN PCP Source Comments Some departments are not documenting in the electronic medical record. If you do not see the information that you expected, contact Release of Information in the Health Information Management department at [phone] for further assistance in locating additional records.[facility] Allergies Comments Active Allergy Reactions Severity Noted Date Duloxetine NAUSEA AND Low 12/21/2015 VOMITING Venlafaxine NAUSEA ONLY Low 12/21/2015 Pregabalin NAUSEA AND Low 12/21/2015 VOMITING Meperidine SWELLING 07/23/2007 Naproxen NAUSEA AND Low 12/21/2015 VOMITING Gabapentin NAUSEA AND Low 12/21/2015 VOMITING Medications End Date Status Medication Sig Dispensed Refills Start Date Active omeprazole DR(+) Take 40 mg by 0 (PRILOSEC) 40 mg capsule mouth twice daily. Active hydrocortisone (CORTEF) 5 Take 20 mg by 0 mg tab mouth daily with breakfast. Active HYDROcodone/acetaminophen Take 1 Tab by 0 (NORCO) 7.5/325 mg tablet mouth every 6 hours as needed for Pain Active ergocalciferol (VITAMIN Take 1 Cap by 8 Cap 0 D) 50,000 unit mouth every 7 6 capsuleIndications: days. After vitamin D deficiency eight weeks, recheck blood level. Indications: VITAMIN D DEFICIENCY Active fluticasone (FLONASE) 50 Apply to 0 mcg/actuation nasal spray each nostril as directed daily. Shake bottle gently before using. Active vitamins, B complex tab Take 1 Tab by 0 mouth daily. Active carBAMazepine (TEGRETOL) Take 1 Tab by 60 Tab 2 200 mg tabletIndications: mouth twice 7 Fibromyalgia, Carpal daily. tunnel syndrome of left wrist, Paresthesia of both feet Active pilocarpine (SALAGEN) 5 Take 1 Tab by 100 Tab 3 mg tabletIndications: mouth three 7 Xerostomia times daily. Indications: XEROSTOMIA Active norethindrone(+) Take 1 tablet 90 tablet 3 (AYGESTIN) 5 mg by mouth 8 tabIndications: Abnormal daily. uterine bleeding (AUB) Active rOPINIRole (REQUIP) 0.5 Take 0.5 mg 0 mg tablet by mouth three times daily. Active tiZANidine (ZANAFLEX) 4 Take 4 mg by 0 mg capsule mouth three times daily. Active clobetasol (TEMOVATE) Apply 0 0.05 % topical cream topically to affected area twice daily. Active cetirizine (ZYRTEC) 10 mg Take 10 mg by 0 tablet mouth every morning. Active amitriptyline (ELAVIL) 25 Take one 30 tablet 2 mg tablet tablet by 8 mouth at bedtime as needed. 06/04/2018 Discontinued cyclobenzaprine Take 10 mg by 0 (FLEXERIL) 10 mg tablet mouth three times daily as needed for Muscle Cramps. 06/04/2018 Discontinued traMADol (ULTRAM) 50 mg Take 50 mg by 0 tablet mouth every 6 hours as needed for Pain. 06/04/2018 Discontinued sertraline (ZOLOFT) 100 Take 100 mg 0 mg tablet by mouth daily. 06/04/2018 Discontinued phentermine-topiramate Take 1 Cap by 0 (QSYMIA) 3.75-23 mg mouth every capsule morning. 06/04/2018 Discontinued amitriptyline (ELAVIL) 10 Take 10 mg by 0 mg tablet mouth at bedtime as needed. Active Problems Problem Noted Date Chronic pain of left knee 08/01/2016 Idiopathic polyneuropathy 04/17/2016 JOSE positive 04/17/2016 Chronic nonintractable headache 04/17/2016 Heat intolerance 04/17/2016 Malaise and fatigue 02/22/2016 Hypovitaminosis D 02/22/2016 Fibromyalgia 12/21/2015 Bipolar affective disorder 08/19/2007 Alcoholism 08/19/2007 Obesity 08/19/2007 Encounters Care Team Description Date Type Specialty Horacio Painter MD Error 06/09/2018 Telephone Gastroenterology Emerald Arita MD Rastogi, Amit, MD Pain in pelvis (Primary Dx); Rectal pain 06/04/2018 Office Visit Gastroenterology Luanne Murphy MD Abnormal uterine bleeding (AUB) (Primary Dx) 05/22/2018 Prep for Case Obstetrics & Gynecology Luanne Murphy MD Mixed incontinence 05/21/2018 Hospital Lab Encounter Luanne Murphy MD Abnormal uterine bleeding (AUB) (Primary Dx); BMI 50.0-59.9, adult (HCC); Urinary incontinence, mixed; Anal pain; Family history of cancer 05/21/2018 Office Visit Obstetrics & Gynecology Emerald Arita MD Results 04/30/2018 Telephone Rheumatology Emerald Arita MD Other specified abnormal immunological findings in serum 04/24/2018 Hospital Lab Encounter Emerald Arita MD Positive JOSE (antinuclear antibody) (Primary Dx); Rectal pain; Stress incontinence; Urinary urgency; Fibromyalgia 04/24/2018 Office Visit Rheumatology Emerald Arita MD Other (pre-op clearance) 04/15/2018 Telephone Rheumatology Emerald Arita MD General Question (fax number ) 04/03/2018 Telephone Rheumatology from Last 3 Months Family History [...] Grandfather colon cancer Son Alive Social History Date Tobacco Use Types Packs/Day Years Used Never Smoker Smokeless Tobacco: Never Used Tobacco Cessation: Counseling Given: No Alcohol Use Drinks/Week oz/Week Comments No 0 Standard 0.0 drinks three times a year now drinks or equivalent Sex Assigned at Date Recorded Not on file Industry Job Start Date Occupation Not on file Not on file Not on file Travel End Travel History Travel Start No recent travel history available. Last Filed Vital Signs Time Taken Vital Sign Reading 06/04/2018 2:02 PM [employer] Blood Pressure 122/86 06/04/2018 2:02 PM [employer] Pulse 85 06/04/2018 2:02 PM [employer] Temperature 36.7 C (98.1 F) 06/04/2018 2:02 PM [employer] Respiratory Rate 18 04/24/2018 11:19 AM CDT Oxygen Saturation 100% - Inhaled Oxygen - Concentration 06/04/2018 2:02 PM [employer] Weight 157.4 kg (347 lb) 06/04/2018 2:02 PM [employer] Height 172.7 cm (5' 8") 06/04/2018 2:02 PM [employer] Body Mass Index 52.76 Plan of Treatment Care Team Description Date Type Specialty Luanne Murphy MD [address] [place] [address] Abnormal uterine bleeding (AUB) 07/24/2018 Hospital Encounter Luanne Murphy MD [address] [place] [address] HYSTEROSCOPY WITH ENDOMETRIAL BIOPSY/ POLYPECTOMY WITH/ WITHOUT DILATION AND CURETTAGE WITH MYOSURE 07/24/2018 Surgery Health Maintenance Due Date Last Done Comments PHYSICAL (COMPREHENSIVE) 1988 EXAM HIV SCREENING 1996 DTAP/TDAP VACCINES (1 - 1999 Tdap) INFLUENZA VACCINE 01/29/2018 CERVICAL CANCER SCREENING 06/19/2020 06/19/2017 Procedures Comments Procedure Name Priority Date/Time Associated Diagnosis URINALYSIS MICROSCOPIC Routine 05/21/2018 Urinary incontinence, REFLEX TO CULTURE 1:50 PM [employer] mixed URINALYSIS DIPSTICK Routine 05/21/2018 Urinary incontinence, REFLEX TO CULTURE 1:50 PM [employer] mixed UA REFLEX CULTURE LABEL Routine 05/21/2018 Urinary incontinence, 1:50 PM [employer] mixed PROTEIN/CR RATIO,UR RAN Routine 04/24/2018 Positive JOSE (antinuclear 12:39 PM CDT antibody) Rectal pain Stress incontinence URINALYSIS, MICROSCOPIC Routine 04/24/2018 Positive JOSE (antinuclear 12:38 PM CDT antibody) Rectal pain Stress incontinence URINALYSIS DIPSTICK Routine 04/24/2018 Positive JOSE (antinuclear 12:38 PM CDT antibody) Rectal pain Stress incontinence CELIAC SCREEN Routine 04/24/2018 Positive JOSE (antinuclear 12:37 PM CDT antibody) Rectal pain Stress incontinence ANTI-THYROPEROXIDASE Routine 04/24/2018 Positive JOSE (antinuclear (MICROSOMAL)AB 12:37 PM CDT antibody) Rectal pain Stress incontinence TSH WITH FREE T4 REFLEX Routine 04/24/2018 Positive JOSE (antinuclear 12:37 PM CDT antibody) Rectal pain Stress incontinence ANTI-DNA DOUBLE STRAND Routine 04/24/2018 Positive JOSE (antinuclear 12:37 PM CDT antibody) Rectal pain Stress incontinence C3 COMPLEMENT 3 Routine 04/24/2018 Positive JOSE (antinuclear 12:37 PM CDT antibody) Rectal pain Stress incontinence C4 COMPLEMENT 4 Routine 04/24/2018 Positive JOSE (antinuclear 12:37 PM CDT antibody) Rectal pain Stress incontinence COMPREHENSIVE METABOLIC Routine 04/24/2018 Positive JOSE (antinuclear PANEL 12:37 PM CDT antibody) Rectal pain Stress incontinence C REACTIVE PROTEIN (CRP) Routine 04/24/2018 Positive JOSE (antinuclear 12:37 PM CDT antibody) Rectal pain Stress incontinence CBC AND DIFF Routine 04/24/2018 Positive JOSE (antinuclear 12:37 PM CDT antibody) Rectal pain Stress incontinence from Last 3 Months Results * UA REFLEX CULTURE LABEL (05/21/2018 1:50 PM [employer] [facility]) UA Reflex Culture LAB LABEL [facility] Specimen Urine Performing Organization Address City/State/Zipcode Phone Number [facility] [address] [place] [address] * URINALYSIS MICROSCOPIC REFLEX TO CULTURE (05/21/2018 1:50 PM [employer]) WBCs,UA 0-2 0 - 2 /HPF [facility] [...] MAIN LAB Specimen Urine Performing Organization Address [facility] Phone Number [facility] [address] [phone] * URINALYSIS DIPSTICK REFLEX TO CULTURE (05/21/2018 1:50 PM [employer]) Color,UA YELLOW [facility] Turbidity,UA CLEAR CLEAR-CLEAR [facility] Specific [place]-Urine 1.031 1.003 - 1.035 [facility] [...] MAIN LAB Specimen Urine Performing Organization Address [facility] Phone Number [facility] [address] [place] [address] * PROTEIN/CR RATIO,UR RAN (04/24/2018 12:39 PM CDT) Protein, Random 12 MG/DL [facility] Creatinine, Random 176 MG/DL [facility] Protein/CR ratio 0.1 [facility] Specimen Urine - Urine Performing Organization Address [facility] Phone Number [facility] [address] [place] [address] * URINALYSIS, MICROSCOPIC (04/24/2018 12:38 PM CDT) WBCs,UA 2-10 0 - 2 /HPF [facility] RBCs,UA NONE 0 - 3 /HPF [facility] MucousUA TRACE [facility] Bacteria,UA FEW (A) NEG-NEG [facility] Squamous Epithelial Cells 2-5 0 - 5 [facility] Specimen Urine - Urine Performing Organization Address [facility] Phone Number [facility] [address] [place] [address] * URINALYSIS DIPSTICK (04/24/2018 12:38 PM CDT) Color,UA YELLOW [facility] Turbidity,UA CLEAR CLEAR-CLEAR [facility] Specific [place]-Urine 1.020 1.003 - 1.035 [facility] pH,UA 6.0 5.0 - 8.0 [facility] Protein,UA NEG NEG-NEG [facility] Glucose,UA NEG NEG-NEG [facility] Ketones,UA NEG NEG-NEG [facility] Bilirubin,UA NEG NEG-NEG [facility] Blood,UA NEG NEG-NEG [facility] Urobilinogen,UA NORMAL NORM-NORMAL [facility] Nitrite,UA NEG NEG-NEG [facility] Leukocytes,UA 2+ (A) NEG-NEG [facility] Urine Ascorbic Acid, UA NEG NEG-NEG [facility] Specimen Urine - Urine Performing Organization Address [facility] Phone Number [facility] [address] [place] [address] * CELIAC SCREEN (04/24/2018 12:37 PM CDT) TTG IgA <0.5 <15 U/mL [facility] Interpretation NORMAL [facility] Specimen Blood Performing Organization Address [facility] Phone Number [facility] [address] [place] [address] * TSH WITH FREE T4 REFLEX (04/24/2018 12:37 PM CDT) TSH 3.740 0.35 - 5.00 MCU/ML [facility] Specimen Blood Performing Organization Address [facility] Phone Number [facility] [address] [place] [address] * ANTI-THYROPEROXIDASE (MICROSOMAL)AB (04/24/2018 12:37 PM CDT) Microsomal AB, TPO 376.20 (H) <5.61 IU/ML [facility] Specimen Blood Performing Organization Address [facility] Phone Number [facility] [address] [place] [address] * ANTI-DNA DOUBLE STRAND (04/24/2018 12:37 PM CDT) DNA Double Strand AB <10 <10 TITER [facility] Specimen Blood Performing Organization Address [facility] Phone Number [facility] [address] [place] [address] * CBC AND DIFF (04/24/2018 12:37 PM CDT) White Blood Cells 7.0 4.5 - 11.0 K/UL [facility] RBC 4.74 4.0 - 5.0 M/UL [facility] Hemoglobin 11.1 (L) 12.0 - 15.0 GM/DL [facility] Hematocrit 34.7 (L) 36 - 45 % [facility] MCV 73.2 (L) 80 - 100 FL [facility] MCH 23.4 (L) 26 - 34 PG [facility] MCHC 31.9 (L) 32.0 - 36.0 G/DL [facility] RDW 17.0 (H) 11 - 15 % [facility] Platelet Count 312 150 - 400 K/UL [facility] MPV 9.0 7 - 11 FL [facility] Neutrophils 51 41 - 77 % [facility] Lymphocytes 39 24 - 44 % [facility] Monocytes 7 4 - 12 % [facility] Eosinophils 2 0 - 5 % [facility] Basophils 1 0 - 2 % [facility] Absolute Neutrophil Count 3.70 1.8 - 7.0 K/UL [facility] Absolute Lymph Count 2.70 1.0 - 4.8 K/UL [facility] Absolute Monocyte Count 0.50 0 - 0.80 K/UL [facility] Absolute Eosinophil Count 0.10 0 - 0.45 K/UL [facility] Absolute Basophil Count 0.00 0 - 0.20 K/UL [facility] Specimen Blood Performing Organization Address [facility] Phone Number [facility] [address] [place] [address] * C3 COMPLEMENT 3 (04/24/2018 12:37 PM CDT) Complemnt C3 221.0 (H) 88 - 200 MG/DL [facility] Specimen Blood Performing Organization Address [facility]/Zipcode Phone Number [facility] [address] [place] [address] * C4 COMPLEMENT 4 (04/24/2018 12:37 PM CDT) Complemnt C4 53.0 (H) 10 - 49 MG/DL [facility] Specimen Blood Performing Organization Address [facility] Phone Number [facility] [address] [place] [address] * C REACTIVE PROTEIN (CRP) (04/24/2018 12:37 PM CDT) C-Reactive Protein 1.12 (H) <1.0 MG/DL [facility] Specimen Blood Performing Organization Address [facility] Phone Number [facility] [address] [place] [address] * COMPREHENSIVE METABOLIC PANEL (04/24/2018 12:37 PM CDT) Sodium 136 (L) 137 - 147 MMOL/L [facility] Potassium 4.3 3.5 - 5.1 MMOL/L [facility] Chloride 103 98 - 110 MMOL/L [facility] Glucose 91 70 - 100 MG/DL [facility] Blood Urea Nitrogen 10 7 - 25 MG/DL [facility] Creatinine 0.87 0.4 - 1.00 MG/DL [facility] Calcium 9.3 8.5 - 10.6 MG/DL [facility] Total Protein 7.5 6.0 - 8.0 G/DL [facility] Total Bilirubin 0.4 0.3 - 1.2 MG/DL [facility] Albumin 4.1 3.5 - 5.0 G/DL [facility] Alk Phosphatase 75 25 - 110 U/L [facility] AST (SGOT) 15 7 - 40 U/L [facility] CO2 27 21 - 30 MMOL/L [facility] ALT (SGPT) 12 7 - 56 U/L [facility] Anion Gap 6 3 - 12 [facility] eGFR Non >60 >60 mL/min [facility] Comment: The eGFR is not validated for use in drug dosing adjustments.Continue to use estimated creatinine clearance per dosing reference text.Please contact the Clinical Pharmacist for questions. eGFR >60 >60 mL/min [facility] Comment: The eGFR is not validated for use in drug dosing adjustments.Continue to use estimated creatinine clearance per dosing reference text.Please contact the Clinical Pharmacist for questions. Specimen Blood Performing Organization Address City/[facility] Phone Number [facility]IN LAB [address] [place] [address] from Last 3 Months Insurance Payer Benefit Subscriber ID Type Phone Address Plan / Group [employer] [place] [employer] xxxxxxxxxxx Medicaid (Work) Advance Directives Patient has advance care planning documents on file. For more information, please contact: [facility] [address] [place] [address]
--- OUTSIDE RECORDS SUMMARY | 2018-06-15 19:00 | XMS REPORT | Encounter Summary ---
Author Author [facility] Organization [facility] Address Unknown Phone Unavailable Care Team Providers Care Special Inspector Name Role Phone Tai Son MD Unavailable Shelbi Alonso MD Unavailable Tab Norman DO Unavailable Aiden Mayfield MD Unavailable Maribel Robertson RN Unavailable Unavailable Donna Longo APRN PCP Encounter Details Care Team Description Date Type Department Emerald Arita MD [address] [facility] [address] [place] [address] [phone] Other specified abnormal immunological findings in serum 04/24/2018 Hospital Clinlab Encounter [facility] [address] [place] [address] Social History Date Tobacco Use Types Packs/Day [...] of left wrist, Paresthesia of both feet 02/24/2016 ergocalciferol (VITAMIN Take 1 Cap by [...] Date Type Specialty Luanne Murphy MD [address] [place] [address] [phone] Abnormal uterine bleeding (AUB) 07/24/2018 Hospital Encounter Luanne Murphy MD [address] [place], [place] [id number] HYSTEROSCOPY WITH ENDOMETRIAL BIOPSY/ POLYPECTOMY WITH/ WITHOUT DILATION AND CURETTAGE WITH MYOSURE 07/24/2018 Surgery as of this encounter Procedures Comments Procedure Name Priority Date/Time Associated Diagnosis PROTEIN/CR RATIO,UR RAN Routine 04/24/2018 Positive JOSE [...] PM CDT antibody) Rectal pain Stress incontinence in this encounter Results * PROTEIN/CR RATIO,UR RAN (04/24/2018 12:39 PM CDT) Protein, Random 12 MG/DL [facility] Creatinine, Random 176 MG/DL [facility] Protein/CR ratio 0.1 [facility] Specimen Urine - Urine Performing Organization Address [facility] Phone Number [facility] [address] [phone] * URINALYSIS, MICROSCOPIC (04/24/2018 12:38 PM CDT) WBCs,UA 2-10 0 - 2 /HPF [facility] RBCs,UA NONE 0 - 3 /HPF [facility] MucousUA TRACE [facility] Bacteria,UA FEW (A) NEG-NEG [facility] Squamous Epithelial Cells 2-5 0 - 5 [facility] Specimen Urine - Urine Performing Organization Address [facility] Phone Number [facility] [address] [place] [address] * URINALYSIS DIPSTICK (04/24/2018 12:38 PM CDT) Color,UA YELLOW [facility] Turbidity,UA CLEAR CLEAR-CLEAR [facility] Specific [place]-Urine 1.020 1.003 - 1.035 [facility] [...] LAB Urine Ascorbic Acid, UA NEG NEG-NEG MAIN LAB Specimen Urine - Urine Performing Organization Address [facility] Phone Number [facility] [address] [place] [address] * CELIAC SCREEN (04/24/2018 12:37 PM CDT) TTG IgA <0.5 <15 U/mL MAIN LAB Interpretation NORMAL [facility] Specimen Blood Performing Organization Address [facility] Phone Number [facility] [address] [place] [address] * ANTI-THYROPEROXIDASE (MICROSOMAL)AB (04/24/2018 12:37 PM CDT) Microsomal AB, TPO 376.20 (H) <5.61 IU/ML [facility] Specimen Blood Performing Organization Address [facility] Phone Number MAIN LAB [address] [place] [address] * TSH WITH FREE T4 REFLEX (04/24/2018 12:37 PM CDT) TSH 3.740 0.35 - 5.00 MCU/ML [facility]IN LAB Specimen Blood Performing Organization Address [facility] Phone Number [facility] LAB [address] [place] [address] * ANTI-DNA DOUBLE STRAND (04/24/2018 12:37 PM CDT) DNA Double Strand AB <10 <10 TITER [facility]IN LAB Specimen Blood Performing Organization Address [facility] Phone Number [facility] [address] [place] [address] * C3 COMPLEMENT 3 (04/24/2018 12:37 PM CDT) Complemnt C3 221.0 (H) 88 - 200 MG/DL [facility] Specimen Blood Performing Organization Address [facility] Phone Number [facility] [address] [place] [address] * C4 COMPLEMENT 4 (04/24/2018 12:37 PM CDT) Complemnt C4 53.0 (H) 10 - 49 MG/DL [facility] Specimen Blood Performing Organization Address [facility] Phone Number [facility] [address] [place] [address] * COMPREHENSIVE METABOLIC PANEL (04/24/2018 12:37 PM [...] Pharmacist for questions. eGFR >60 >60 mL/min [facility] Comment: The eGFR is not validated for use in drug dosing adjustments.Continue to use estimated creatinine clearance per dosing reference text.Please contact the Clinical Pharmacist for questions. Specimen Blood Performing Organization Address City/[facility]/Zipcode Phone Number [facility] [address] [place] [address] * C REACTIVE PROTEIN (CRP) (04/24/2018 12:37 PM CDT) C-Reactive Protein 1.12 (H) <1.0 MG/DL [facility] Specimen Blood Performing Organization Address City/[facility]/Zipcode Phone Number [facility] [address] [place] [address] * CBC AND DIFF (04/24/2018 12:37 PM CDT) White Blood Cells 7.0 4.5 - 11.0 K/UL [facility] RBC 4.74 4.0 - 5.0 M/UL [facility] Hemoglobin 11.1 (L) 12.0 - 15.0 [...] MAIN LAB Specimen Blood Performing Organization Address City/State/Zipcode Phone Number [facility] [address] [place] [address] in this encounter Visit Diagnoses Diagnosis Positive JOSE (antinuclear antibody) Other and unspecified nonspecific immunological findings Rectal pain Anal or rectal pain Stress incontinence Female stress incontinence in this encounter
--- OUTSIDE RECORDS SUMMARY | 2018-06-15 19:00 | XMS REPORT | Encounter Summary ---
Author Author [facility] Organization [facility] Address Unknown Phone Unavailable Care Team Providers Care Grips Name Role Phone Tai Son MD Unavailable Shelbi Alonso MD Unavailable Tab Norman DO Unavailable Aiden Mayfield MD Unavailable Maribel Robertson RN Unavailable Unavailable Donna Longo APRN PCP Reason for Referral * Consult, Test & Treat (Routine) Referred By Contact Referred To Contact Status Reason Specialty Diagnoses / Procedures Emerald Arita MD [address] [place] [address] [facility] Level [address] [place] [address] No Auth Needed Specialty Services Gastroenterology Diagnoses Required Rectal pain Reason for Visit * Reason Comments Office Visit Follow Up Encounter Details Care Team Description Date Type Department Emerald Arita MD [address] [facility] [address] [place] [address] [phone] Positive JOSE (antinuclear antibody) (Primary Dx); Rectal pain; Stress incontinence; Urinary urgency; Fibromyalgia 04/24/2018 Office Visit [facility] [id number] [address] [place], [place] [id number] Social History Date Tobacco Use Types Packs/Day [...] Vital Signs Time Taken Vital Sign Reading 04/24/2018 11:19 AM CDT Blood Pressure 131/75 04/24/2018 11:19 AM CDT Pulse 97 04/24/2018 11:19 AM CDT Temperature 36.6 C (97.8 F) 04/24/2018 11:19 AM CDT Respiratory Rate 19 04/24/2018 11:19 AM CDT Oxygen Saturation 100% - Inhaled Oxygen - Concentration 04/24/2018 11:19 AM CDT Weight 156.9 kg (346 lb) 04/24/2018 11:19 AM CDT Height 172.7 cm (5' 8") 04/24/2018 11:19 AM CDT Body Mass Index 52.61 in this encounter Functional Status Date of [...] this encounter Patient Instructions * Patient Instructions* Emerald Arita MD - 04/24/2018 11:00 AM CDT - Interstitial cystitis in this encounter Progress Notes * Emerald Arita MD - 04/24/2018 11:00 AM CDT Date of Service: 04/24/2018 Subjective: Prisca Randall is a 37 y.o. female. History of Present IllnessMs. Randall returns for follow-up of a positive [...] rheumatology in July 2016 for a positive JOSE ( 1:160). She has a negative SABAS as well as normal complements. She had borderline anemia on CBC but no other leukopenia or thrombocytopenia. Creatinine and urinalysis were both normal. She did have a mildly elevated CRP. It was not felt that she had evidence for a rheumatologic condition. In October 2016, pilocarpine was initiated to help with the dryness symptoms. Current visit: She has significant concerns that she has celiac disease. She noted some worsening in her overall symptoms after gluten exposure particularly noticing symptoms with liquor but not wine. She also has concerns regarding hypothyroidism. She underwent evaluation for her thyroid no goiter or nodules were identified but she does feel like her thyroid is enlarged. She is in a significant difficulty with hemorrhoids over the last year which continue to persist. She has difficulty with severe rectal pain which she describes as cramps particularly related to bowel movements. There can be significant delays in between bowel movements as a result of the symptoms. This can trigger significant whole body muscle cramps. She reports difficulty with urinary stress incontinence. She also describes urinary urgency and frequency in the absence of a urinary tract infection. She has difficulty with paresthesias of the right upper extremity. She underwent evaluation and there was concern regarding the possibility of a spinal issue causing these symptoms. She reports significant sensitivity to the bra strap on her right shoulder. She was diagnosed with restless leg syndrome and recently started on ropinirole. Even in the first few days she is noticing improvement in the symptoms. She has been having fluctuating difficulty with lack of appetite. If she tries to force herself to eat during these time periods that she can develop vomiting. She is able to drink water during these time periods. She is currently scheduled for bariatric surgery in May 2018. She is working with a twister hand in anticipation. It is felt that she is not getting sufficient protein in her diet currently. She is planning to start some different sources of protein such as powder peanut butter. She has no symptoms of lightheadedness with change in position. She describes a sensation of feeling like she is tilting to one side and overall being unable to focus her eyes. This become more problematic over the last few days. She continues to note significant sleep alteration. She typically goes to bed between 37 AM. She has concerns regarding increasing social anxiety. She was evaluated by Dr. Murphy in Gynecology for abnormal uterine bleeding. Norethindrone was prescribed; she has not yet started that. PAST MEDICAL HISTORY 1. Hypertension. 2. Asthma. [...] type. Mother: Heart disease. Review of Systems Objective: amitriptyline (ELAVIL) 10 mg tablet Take [...] Take 1 Tab by mouth daily. Vitals: 04/24/18 1119 BP: 131/75 Pulse: 97 Resp: 19 Temp: 36.6 C (97.8 F) TempSrc: Oral SpO2: 100% Weight: (!) 156.9 kg (346 lb) Height: 172.7 cm (68") Body mass index is 52.61 kg/m. Physical Exam General: Alert and oriented, no acute distress. Eye: Clear conjunctiva and lids. HEENT: Moist mucous membranes with no oral or nasal ulcers. Lymph: No cervical or supraclavicular lymphadenopathy. CV: Regular rate and rhythm; no murmur/gallop/rub. Vessels: Normal radial and pedal pulses. Pulm: Clear to auscultation bilaterally. Abdomen: Soft, nontender, nondistended. Skin: Scattered ecchymoses. On left in inframammary [...] #2 Mild sensorimotor polyneuropathy #3 Fibromyalgia #4 Urinary urgency and frequency #5 Urinary stress incontinence #6 Rectal pain with bowel movements, question of pelvic floor dysfunction We reviewed updating complements and double-stranded DNA antibodies as these can fluctuate with disease activity along with CBC, CMP, and urinalysis to evaluate for evidence of evolution of a connective tissue disease. Currently, based on today's symptoms there is not clear evidence of evolution of a connective tissue disease. Would not recommend empiric immunosuppression. We will plan to follow-up with Dr. Murphy regarding the urinary symptoms. It is unclear if the urgency or frequency potentially could be related to interstitial cystitis. We will plan for referral to Gastroenterology due to the rectal pain associated with bowel movements. Question if pelvic floor dysfunction could be playing a role in her symptoms. She also has concerns regarding celiac disease. We will plan to update serology at this point in time. She has concerns regarding hypothyroidism. We will plan to update thyroid testing. She is scheduled for bariatric surgery in May 2018. Will be helpful to observe change in symptoms following the surgery including of polyarthralgia/ myalgia. Recommendations: 1. Lab work as described above. 2. Gastroenterology referral for evaluation of rectal pain associated with bowel movements, question of pelvic floor dysfunction. 3. Review with Dr. Murphy regarding increasing symptoms of urinary urgency, urinary frequency, and stress incontinence. ADDENDUM: Labs hemoglobin 11.1, platelets 312, white blood cell 7.0, CRP 1.12, creatinine 0.87, ALT 12, TPO 376, TSH 3.74, C3 221, C4 53, negative tTG IgA, UA with WBCs 2 -10, no red blood cells, protein/creatinine ratio 0.1. Huberin minutes, greater than 50% spent in counseling and coordination of care. in this encounter Plan of Treatment Care Team Description Date Type Specialty Luanne Murphy MD [address] [place] [address] Abnormal uterine bleeding (AUB) 07/24/2018 Hospital Encounter Luanne Murphy MD [address] [place], [place] [id number] HYSTEROSCOPY WITH ENDOMETRIAL BIOPSY/ POLYPECTOMY WITH/ WITHOUT DILATION AND CURETTAGE WITH MYOSURE 07/24/2018 Surgery Order Schedule Name Priority Associated Diagnoses Ordered: 04/24/2018 AMB REFERRAL TO GASTROENTEROLOGY Routine Rectal pain as of this encounter Results * PROTEIN/CR RATIO,UR RAN (04/24/2018 12:39 PM CDT) Protein, Random 12 MG/DL [facility] Creatinine, Random 176 MG/DL [facility] Protein/CR ratio 0.1 [facility] Specimen Urine - Urine Performing Organization Address [facility] Phone Number [facility] [address] [place] [address] * URINALYSIS, MICROSCOPIC (04/24/2018 12:38 PM CDT) WBCs,UA 2-10 0 - 2 /HPF [facility] RBCs,UA NONE 0 - 3 /HPF [facility] MucousUA TRACE [facility] Bacteria,UA FEW (A) NEG-NEG [facility] Squamous Epithelial Cells 2-5 0 - 5 [facility] Specimen Urine - Urine Performing Organization Address [facility] Phone Number [facility] [address] [place] [address] * URINALYSIS DIPSTICK (04/24/2018 12:38 PM CDT) Color,UA YELLOW [facility] Turbidity,UA CLEAR CLEAR-CLEAR [facility] Specific [place]-Urine 1.020 1.003 - 1.035 [facility] pH,UA 6.0 5.0 - 8.0 [facility] Protein,UA NEG NEG-NEG [facility] Glucose,UA NEG NEG-NEG [facility] Ketones,UA NEG NEG-NEG [facility] Bilirubin,UA NEG NEG-NEG [facility] Blood,UA NEG NEG-NEG [facility] Urobilinogen,UA NORMAL NORM-NORMAL [facility] Nitrite,UA NEG NEG-NEG [facility] Leukocytes,UA 2+ (A) NEG-NEG [facility] Urine Ascorbic Acid, UA NEG NEG-NEG [facility] Specimen Urine - Urine Performing Organization Address [facility] Centercomt Phone Number [facility] LAB [address] [place] [address] * CELIAC SCREEN (04/24/2018 12:37 PM CDT) TTG IgA <0.5 <15 U/mL [facility] Interpretation NORMAL [facility] Specimen Blood Performing Organization Address [facility] Phone Number [facility] [address] [place] [address] * ANTI-THYROPEROXIDASE (MICROSOMAL)AB (04/24/2018 12:37 PM CDT) Microsomal AB, TPO 376.20 (H) <5.61 IU/ML [facility] Specimen Blood Performing Organization Address [facility] Phone Number [facility] [address] [place] [phone] * TSH WITH FREE T4 REFLEX (04/24/2018 12:37 PM CDT) TSH 3.740 0.35 - 5.00 MCU/ML [facility] Specimen Blood Performing Organization Address [facility]ode Phone Number [facility] [address] [place] [address] * ANTI-DNA DOUBLE STRAND (04/24/2018 12:37 PM CDT) DNA Double Strand AB <10 <10 TITER [facility] Specimen Blood Performing Organization Address [facility]ode Phone Number [facility] [address] [place] [phone] * C3 COMPLEMENT 3 (04/24/2018 12:37 PM CDT) Complemnt C3 221.0 (H) 88 - 200 MG/DL [facility] Specimen Blood Performing Organization Address [facility]ode Phone Number [facility] [address] [place] [address] * C4 COMPLEMENT 4 (04/24/2018 12:37 PM CDT) Complemnt C4 53.0 (H) 10 - 49 MG/DL [facility] Specimen Blood Performing Organization Address City/[facility]/Zipcode Phone Number MAIN LAB [address] [place] [address] * COMPREHENSIVE METABOLIC PANEL (04/24/2018 12:37 PM [...] Performing Organization Address City/[facility]/Zipcode Phone Number MAIN LAB [address] [place] [address] * C REACTIVE PROTEIN (CRP) (04/24/2018 12:37 PM CDT) C-Reactive Protein 1.12 (H) <1.0 MG/DL [facility] Specimen Blood Performing Organization Address City/[facility]/Zipcode Phone Number MAIN LAB [address] [place] [address] * CBC AND DIFF (04/24/2018 12:37 PM [...] City/State/Zipcode Phone Number [facility] [address] [place] [address] in this encounter Visit Diagnoses Diagnosis Positive JOSE (antinuclear antibody) - Primary Other and unspecified nonspecific immunological findings Rectal pain Anal or rectal pain Stress incontinence Female stress incontinence Urinary urgency Urgency of urination Fibromyalgia Mylagia and myositis, unspecified in this encounter
--- OUTSIDE RECORDS SUMMARY | 2018-06-15 19:00 | XMS REPORT | Encounter Summary ---
Author Author [facility] Organization [facility] Address Unknown Phone Unavailable Care Team Providers Care Help Desk Consultant Name Role Phone Tai Son MD Unavailable Shelbi Alonso MD Unavailable Tab Norman DO Unavailable Aiden Mayfield MD Unavailable Maribel Robertson RN Unavailable Unavailable Janeen Emerson PCP Reason for Visit * Reason Comments General Question fax number Encounter Details Care Team Description Date Type Department Emerald Arita MD [address] [facility] [address] [place] [address] General Question (fax number ) 04/03/2018 Telephone [facility] [address] [place] [address] [address] [place] [address] Social History Date Tobacco Use Types Packs/Day [...] encounter Miscellaneous Notes * Telephone Encounter - Lashae Marion RN - 04/03/2018 4:42 PM CDT Message received from Ashley with Dr. Stearns's office requesting the fax number to send a document for surgery clearance. Patient is supposed to have Sleeve Gastrectomy in May or July 2018. I provided the fax number [phone]. Looks like we have not seen the patient since , however patient has a follow up scheduled 04/24/18. Ashley says that paper are not needed back before then. in this encounter Plan of Treatment Care Team Description Date Type Specialty Luanne Murphy MD [address] [place], [place] [phone] Abnormal uterine bleeding (AUB) 07/24/2018 Hospital Encounter Luanne Murphy MD [address] [place], [place] [phone] HYSTEROSCOPY WITH ENDOMETRIAL BIOPSY/ POLYPECTOMY WITH/ WITHOUT DILATION AND CURETTAGE WITH MYOSURE 07/24/2018 Surgery as of this encounter Visit Diagnoses Not on filein this encounter
--- OUTSIDE RECORDS SUMMARY | 2018-06-15 19:00 | XMS REPORT | Encounter Summary ---
Author Author [facility] Organization [facility] Address Unknown Phone Unavailable Care Team Providers Care Trim Attacher Name Role Phone Tai Son MD Unavailable Shelbi Alonso MD Unavailable Tab Norman DO Unavailable Aiden Mayfield MD Unavailable Maribel Robertson RN Unavailable Unavailable Janeen Emerson PCP Reason for Visit * Reason Comments Other pre-op clearance Encounter Details Care Team Description Date Type Department Emerald Arita MD [address] [facility] [address] [place] [address] Other (pre-op clearance) 04/15/2018 Telephone [facility] [address] [place] [phone] [place] [address] Social History Date Tobacco Use [...] Telephone Encounter - Vero Cruz RN - 04/15/2018 12:12 PM CDT Received Pre-op Medical/Cardiac Clearance Request Form from Dr. Roshan Webber's office, General and Bariatric Surgery (p: [phone], f: ) for laproscopic sleeve gastrectomy surgery May 2018 or July 2018. Received voicemail from Ashley with Dr. Webber's office inquiring about clearance form. Per Dr. Arita, called and notified Ashley to obtain clearance from patient's PCP or if established, her Tape Recorder Repairer, patient currently does not have evidence of a rheumatologic disease. Ashley verbalized understanding. in this encounter Plan of Treatment Care Team Description Date Type Specialty Luanne Murphy MD [address] [place] [address] Abnormal uterine bleeding (AUB) 07/24/2018 Hospital Encounter Luanne Murphy MD [address] [place] [address] HYSTEROSCOPY WITH ENDOMETRIAL BIOPSY/ POLYPECTOMY WITH/ WITHOUT DILATION AND CURETTAGE WITH MYOSURE 07/24/2018 Surgery as of this encounter Visit Diagnoses Not on filein this encounter
--- OUTSIDE RECORDS SUMMARY | 2018-06-15 19:00 | XMS REPORT ---
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 Name Role Phone ALEX HUTCHINSON Unavailable PROBLEMS Type Condition ICD9-CM Code GFA93-NQ Code Onset Dates Condition Status SNOMED Code Problem Arthritis of both knees M19.90 Active 909095410 Problem Insomnia due to medical condition G47.01 Active 035579256 Problem Pre-diabetes R73.03 Active 878617871 Problem Restless leg syndrome G25.81 Active 73738829 Problem Paresthesia of skin R20.2 Active 30185451 Problem Chronic seasonal allergic rhinitis, unspecified trigger J30.2 Active 681356573 Problem No diagnosis or condition on [place] I Z03.89 Active 8645432 Problem Morbid obesity E66.01 Active 507032420 Problem Idiopathic neuropathy G60.9 Active Problem Abnormal x-ray of cervical spine R93.7 Active 643401917 Problem Fibromyalgia M79.7 Active 56239738 Problem Long-term use of high-risk medication Z79.899 Active 170084027 Problem Heartburn R12 Active 93904994 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 [address] [id number], [place] [address] May, BMI 50.0-59.9, adult Z68.43 [facility] [address] [id number], [place] [address] May, BMI 50.0-59.9, adult Z68.43 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 ; Chronic seasonal allergic rhinitis, unspecified trigger J30.2 ; Heartburn R12 and BMI 50.0-59.9, adult Z68.43 [facility] [id number] [place] [address] 40052- 1258 Mar, Vitamin D deficiency E55.9 [place] [address] 33513- 9664 Mar, Weight loss counseling, encounter for Z71.3 ; Vitamin D deficiency E55.9 ; Dermatitis L30.9 ; Chronic seasonal allergic rhinitis, unspecified trigger J30.2 ; Heartburn R12 ; Restless leg syndrome G25.81 and BMI 50.0-59.9, adult Z68.43 [place] [id number] [place] [address] 72733- 2619 Mar, Cervicalgia M54.2 ; 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 ; Paresthesia of upper and lower extremities of both sides R20.2 ; Weight loss counseling, encounter for Z71.3 and BMI 50.0-59.9, adult Z68.43 [place] [id number] [place] [address] 28926- 3854 Jan, Encounter for weight loss counseling Z71.3 ; 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 ; Arthritis of both knees M19.90 and BMI 50.0-59.9 , adult Z68.43 [place] [id number] [place] [address] 77915- 2901 Dec, Weight loss counseling, encounter for Z71.3 ; BMI 50.0-59.9 , adult Z68.43 ; 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 ; Abnormal x-ray of cervical spine R93.7 and Vitamin D deficiency E55.9 [place] [id number] [place] [address] 08917- 4032 Dec, Encounter for weight loss counseling Z71.3 ; Fibromyalgia M79.7 and BMI 50.0-59.9, adult Z68.43 [place] [id number] [place] [address] 24146- 4942 Nov, [place] [address] 52814- 2618 Nov, Morbid obesity E66.01 ; Paresthesia of upper and lower extremities of both sides R20.2 ; Hair loss L65.9 ; Fibromyalgia M79.7 and BMI 50.0-59.9, adult Z68.43 [place] [address] 13965- 7512 Nov, Vitamin D deficiency E55.9 [place] [address] 92641- 6736 Nov, Arthritis of both knees M19.90 and Vitamin D deficiency E55.9 [place] [address] 92639- 0641 Nov, Chronic seasonal allergic rhinitis, unspecified trigger J30.2 and Heartburn R12 [place] [id number] [place] [address] 00384- 1461 Nov, [place] [address] 37563- 9548 Nov, Vitamin D deficiency E55.9 [place] [id number] [place] [address] 63389- 9076 October, Morbid obesity E66.01 ; Hemorrhoids, unspecified hemorrhoid type K64.9 ; Pre-diabetes R73.03 and BMI 50.0-59.9, adult Z68.43 [place] [address] 17918- 0011 October, [place] [id number] [place] [address] 21164- 5286 October, [place] [address] 74732- 0955 October, Left arm numbness R20.0 ; Paresthesia of skin R20.2 ; Anesthesia of skin R20.0 and BMI 50.0-59.9, adult Z68.43 [place] [id number] [place] [address] 27313- 0354 Sep, BMI 50.0-59.9, adult Z68.43 ; Fibromyalgia M79.7 ; Idiopathic neuropathy G60.9 ; Vitamin D deficiency E55.9 ; Chronic seasonal allergic rhinitis, unspecified trigger J30.2 and Long-term use of high-risk medication Z79.899 [address] [address] 93502- 6788 Aug, Fibromyalgia M79.7 [place] [address] 91581- 7464 Aug, No diagnosis or condition on [place] I Z03.[address] 56901- 0367 Aug, Chronic seasonal allergic rhinitis, unspecified trigger J30.2 ; Fibromyalgia M79.7 ; Heartburn R12 ; Pre-diabetes R73.03 ; Change of voice R49.9 and BMI 50.0-59.9, adult Z68.43 [place] [id number] [place] [address] 51593- 1877 Aug, Fibromyalgia M79.7 [place] [address] 03026- 2459 May, Chronic seasonal allergic rhinitis, unspecified trigger J30.2 ; Vaginal itching L29.8 and Vaginal yeast infection B37.[address] 12953- 9496 May, Arthritis of both knees M19.90 [facility] IN [facility] [id number] [place] [address] 56350 -4039 May, Herpes zoster without complication B02.9 and Vaginal penny B37.3 [id number] [place] [address] 64263- 0730 Mar, [place] [address] 74629- 4478 Mar, Arthritis of both knees M19.90 [place] [id number] [place] [address] 18163- 7334 Mar, Arthritis of both knees M19.90 ; Elevated serum creatinine R79.89 ; Fibromyalgia M79.7 ; Idiopathic neuropathy G60.9 ; Vitamin D deficiency E55.9 ; Pre-diabetes R73.03 and Insomnia due to medical condition G47.01 [address] [address] 11976- 2838 Mar, [place] [address] 76331- 2887 Jan, [place] [address] 04305- 3033 Jan, Pes planus of left foot M21.42 ; Plantar fasciitis of left foot M72.2 and Neuropathy G62.9 [place] [id number] [place] [address] 28602- 4432 Jan, Arthritis of both knees M19.90 ; Fibromyalgia M79.7 ; Idiopathic neuropathy G60.9 ; Vitamin D deficiency E55.9 ; Pre-diabetes R73.03 ; Insomnia due to medical condition G47.01 ; Bad odor of urine R82.90 and SI ( sacroiliac) pain M53.3 [place] [id number] [place] [address] 46923- 9741 Jan, [place] [address] 62655- 7459 Jan, Elevated serum creatinine R79.89 [place] [id number] [place] [address] 69864- 8551 Dec, [place] [address] 68613- 2375 Dec, Arthritis of both knees M19.90 ; Fibromyalgia M79.7 ; Idiopathic neuropathy G60.9 ; Vitamin D deficiency E55.9 and Pre-diabetes R73.03 [place] [id number] [place] [address] 90005- 9401 Dec, Arthritis of both knees M19.90 [place] [address] 64394- 4938 October, [place] [address] 09512- 9274 October, [place] [address] 39436- 3683 October, Fibromyalgia M79.7 [place] [address] 01687- 0064 October, Skin tag L91.8 ; Left foot pain M79.672 and Rash and nonspecific skin eruption R21 [place] [id number] [place] [address] 20649- 6749 Aug, [place] [address] 15385- 4198 Aug, Arthritis of both knees M19.90 ; Fibromyalgia M79.7 ; Idiopathic neuropathy G60.9 ; Vitamin D deficiency E55.9 ; Morbid obesity due to excess calories E66.01 and History of prediabetes Z87.898 [facility] WALK IN [facility] [id number] [place] [address] 94807 -2252 Aug, Blood in ear canal, right H92.21 [place] [id number] [place] [address] 97026- 0005 Jul, [place] [address] 12210- 5481 Jul, Arthritis of both knees M19.90 ; Fibromyalgia M79.7 ; Idiopathic neuropathy G60.9 and Vitamin D deficiency E55.9 [place] [id number] [place] [address] 54072- 8778 Jul, Fibromyalgia M79.7 [place] [address] 33267- 1425 May, Fibromyalgia M79.7 ; Idiopathic neuropathy G60.9 ; Vitamin D deficiency E55.9 ; Memory change R41.3 ; Xerostomia K11.7 and Heartburn R12 [place] [address] 32585- 3231 May, Fibromyalgia M79.7 ; Idiopathic neuropathy G60.9 ; Vitamin D deficiency E55.9 and Memory change R41.3 [place] [id number] [place] [address] 89681- 8190 May, [place] [id number] [place] [address] 89703- 2634 Mar, [place] [id number] [place] [address] 54836- 7184 Jan, [place] [id number] [place] [address] 59613- 7017 Jan, [place] [id number] [place] [address] 63234- 1019 Jan, Dermatitis L30.9 ; Pain in right shoulder M25.511 ; Fibromyalgia M79.7 and H/O right knee surgery Z98.89 [place] [id number] [place] [address] 89254- 9199 Dec, [place] [id number] [place] [address] 30388- 4089 Dec, Middle ear effusion, right H65.91 ; Fibromyalgia M79.7 and Heartburn R12 [facility] WALK IN [facility] [address] [place] [address] 35510 -0311 Dec, Otalgia of right ear H92.01 and Middle ear effusion, right H65.91 [place] [id number] [place] [address] 83552- 6940 17 Nov, 2015 Acute pain of right knee M25.561 [place] [id number] [place] [address] 19482- 1498 Nov, [place] [id number] [place] [address] 94109- 6291 Nov, Acute pain of right knee M25.561 [place] [id number] [place] [address] 85925- 6924 October, Osteoarthritis of both knees, unspecified osteoarthritis type M17.0 [id number] [place] [address] 34754- 9230 October, [id number] [place] [address] 16065- 2607 Sep, [id number] [place] [address] 00598- 4292 Sep, Fibromyalgia M79.7 ; Chronic fatigue R53.82 ; Sinusitis J32.9 ; Bronchiolitis J21.9 ; Weight gain R63.5 and Heartburn R12 [id number] [place] [address] 98809- 9669 Sep, Mild hearing loss of right ear H91.91 and Tinnitus of right ear H93.11 [id number] [place] [address] 57403- 0837 Aug, [id number] [place] [address] 83205- 6514 Aug, Fibromyalgia M79.7 and Depression F32.9 [id number] [place] [address] 89672- 7249 Aug, [id number] [place] [address] 13119- 2585 Jul, Fibromyalgia M79.7 ; 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 ; Vitamin D deficiency E55.9 ; Long-term use of high-risk medication Z79.899 ; Heartburn R12 ; Chronic fatigue, unspecified R53.82 and Tinnitus of right ear H93.11 [id number] [place] [address] 94721- 2273 Mar, Fibromyalgia M79.7 ; 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 ; Vitamin D deficiency E55.9 ; Diarrhea R19.7 ; Long-term use of high- risk medication Z79.899 and Heartburn R12 [place] [id number] [place] [address] 96373- 7442 Mar, Fibromyalgia 729.1 ; Unspecified hereditary and idiopathic peripheral neuropathy 356.9 ; Unspecified sleep disturbance 780.50 ; Left ankle pain 719.47 and Insomnia 780.52 [id number] [place] [address] 54810- 3381 Mar, Unspecified episodic mood disorder 296.90 and Anxiety state , unspecified 300.00 [id number] [place] [address] 05521- 3468 Mar, Chondromalacia of right knee 717.7 [id number] [place] [address] 32722- 6512 Jan, [id number] [place] [address] 16916- 3899 Dec, Left foot pain 729.5 [place] [id number] [place] [address] 93175- 9774 Sep, [place] [id number] [place] [address] 35847- 5452 Sep, [address] [id number]- 0813 Aug, [id number] [place] [address] 96168162- [address]3 Aug, [address] [id number]- 8694 Aug, [facility] [place] [facility] [address] [id number] [place] [address]- 5323 16 Aug, 2014 [facility] [place] [facility] [address] [id number] [place] [address]- 8986 Aug, [facility] [place] [facility] [address] [id number] [place] [address]- 4733 Aug, [facility] [place] [facility] [address] [id number] [place] [address]- 4027 Aug, [facility] [place] [facility] [address] [id number] [place] [address]- 3934 Aug, [facility] [place] [facility] [address] [id number] [place] [address]- 4502 Aug, [facility] [place] [facility] [address] [id number] [place] [address]- 5428 Aug, [facility] [place] [facility] [address] [id number] [place] [address]- 3183 Aug, [facility] [place] [facility] [address] [id number] [place] [address]- 7385 Aug, [facility] [place] [facility] [address] [id number] [place] [address]- 8558 Aug, [facility] [place] [facility] [address] [id number] [place] [address]- 8975 Aug, [facility] [place] [facility] [address] [id number] [place] [address]- 9880 Aug, [facility] [place] [facility] [address] [id number] [place] 6207 Aug, [facility] [place] [facility] [address] [id number] [place] [address]- 9469 Jul, [facility] [place] [facility] [address] [id number] [place] 6512 Jul, [facility] [place] [facility] [address] [id number] [place] [address]- 1649 Jul, [facility] [place] [facility] [address] [id number] [place] [address]- 4390 Jul, [facility] [place] [facility] [address] [id number] [place] [address]- 7989 May, [facility] [place] [facility] [address] [id number] [place] [address]- 9160 May, [facility] [place] [facility] [address] [id number] [place] [address]- 1358 May, [facility] [place] [facility] [address] [id number] [place] [address]- 7889 Mar, [facility] [place] [facility] [address] [id number] [place] [address]- 1932 Mar, [facility] [place] [facility] [address] [id number] [place] [address]- 3618 Mar, [facility] [place] [facility] [address] [id number] [place] [address]- 3025 Mar, [facility] [place] [facility] [address] [id number] [place] [address]- 5700 Dec, [facility] [place] [facility] [address] [id number] [place] [address]- 6409 Dec, [facility] [place] [facility] [address] [id number] [place] [address]- 8152 Nov, [facility] [place] [facility] [address] [id number] [place] [address]- 1304 Nov, [facility] [place] [facility] [address] [id number] [place] [address]- 8709 Nov, [facility] [place] [facility] [address] [id number] [place] [address]- 0221 Nov, [facility] [place] [facility] [address] [id number] [place] [address]- 8667 Nov, [facility] [place] [facility] [address] [id number] [place] [address]- 6327 Nov, [facility] [place] [facility] [address] [id number] [place] [address]- 6523 October, [facility] [place] [facility] [address] [id number] [place] [address]- 1849 October, [facility] [place] [facility] [address] [id number] [place] [address]- 4119 October, [facility] [place] [facility] [address] [id number] [place] [address]- 0326 October, [facility] [place] [facility] [address] [id number] [place] [address]- 5232 October, [facility] [place] [facility] [address] [id number] [place] [address]- 6591 October, [facility] [place] [facility] [address] [id number] [place] [address]- 7058 October, [facility] [place] [facility] [address] [id number] [place] [address]- 4718 October, [facility] [place] [facility] [address] [id number] [place] [address]- 0423 October, [facility] [place] [facility] [address] [id number] [place] [address]- 1188 October, [facility] [place] [facility] [address] [id number] [place] [address]- 9150 October, [facility] [place] [facility] [address] [id number] [place] [address]- 1452 October, [facility] [place] [facility] [address] [id number] [place] [address]- 1528 October, [facility] [place] [facility] [address] [id number] [place] [address]- 9209 Sep, [facility] [place] [facility] [address] [id number] [address]- 5621 Sep, [facility] [place] [facility] [address] [id number] [place] [address]- 2947 Aug, [facility] [place] [facility] [address] [id number] [place] [address]- 9482 Aug, [facility] [place] [facility] [address] [id number] [place] [address]- 3166 Aug, [facility] [place] [facility] [address] [id number] [place] [address]- 7508 Aug, [facility] [place] [facility] [address] [id number] [place] 3945 Aug, [facility] [place] [facility] [address] [id number] [place] [address]- 2818 Aug, [facility] [place] [facility] [address] [facility] [id number] [place] [address]- 5005 Aug, [facility] [place] [facility] [address] [facility] [id number] [place] [address]- 6144 Aug, [facility] [place] [facility] [address] [facility] [id number] [place] [address]- 5199 Aug, [facility] [place] [facility] [address] [facility] [id number] [place] [address]- 1085 Aug, [facility] [place] [facility] [address] [facility] [id number] [place] [address]- 0999 Aug, [facility] [place] [facility] [address] [facility] [id number], [place] [address]- 5618 Aug, [facility] [place] [facility] [address] [id number], [place] [address]- 6264 Jul, [facility] [place] [facility] [address] [id number], [place] [address]- 6399 Jul, [facility] [place] [facility] [address] [facility] [id number], [place] [address]- 4540 Jul, [facility] [place] [facility] [address] [id number] [place] [address]- 4938 Jul, [facility] [address] [id number] [place] [address]- 2334 Mar, [facility] [place] [facility] [address] [id number] [place] [address]- 7823 Mar, [facility] [place] [facility] [address] [id number] [place] [address]- 7300 Jan, [facility] [place] [facility] [address] [id number] [place] [address]- 9667 Sep, [facility] [place] [facility] [address] [id number] [place] [address]- 5682 14 Aug, 2012 [facility] [address] [facility] [id number] [place] [address]- 5490 Aug, [facility] [address] [id number] [place] [address]- 7923 Aug, [facility] [address] [id number] [place] [address]- 3282 Aug, [facility] [address] [facility] [id number] [place] [address]- 5736 Aug, [facility] [place] [facility] [address] [id number] [place] [address] October, [facility] [address] [id number] [place] [address] October, [facility] [place] [facility] [address] [id number] [place] [address] Sep, [facility] [place] [facility] [address] [id number] [place] [address] Sep, [facility] [place] [facility] [address] [id number] [place] [address] Sep, [facility] [place] [facility] [address] [id number] [place] [address] 19 Sep, 2011 [facility] [address] [id number] [place] [address] 18 Sep, 2011 [facility] [place] [facility] [address] [id number] [place] [address] 11 Sep, 2011 [facility] [address] [id number] [place] [address] 10 Sep, 2011 [facility] [address] [id number] [place] [address] 09 Sep, 2011 [facility] [address] [id number] [place] [address] 07 Sep, 2011 [facility] [address] [id number] [place] [address] 06 Sep, 2011 [facility] [address] [id number] [address] Aug, [facility] [place] [facility] [address] [id number] [place] [address] 17 Aug, 2011 [facility] [address] [id number] [place] [address] 13 Aug, 2011 [facility] [address] [facility] [id number] [place] [address] Aug, [facility] [address] [facility] [id number] [place] [address] Jul, [facility] [place] [facility] [address] [id number] [place] [address] Jul, [facility] [place] [facility] [address] [id number] [place] [address] Jul, [facility] [place] [facility] [address] [id number] [place] [address] May, [facility] [place] [facility] [address] [facility] [id number] [place] [address] May, [facility] [place] [facility] [address] [facility] [id number] [place] [address] May, [facility] [address] [facility] [id number], [place] [address] Jan, [facility] [address] [facility] [id number] [place] [address] Dec, IMMUNIZATIONS No Known Immunizations SOCIAL HISTORY Never Assessed REASON FOR VISIT LVM PLAN OF CARE VITAL SIGNS MEDICATIONS Medication Instructions Dosage Frequency Start Date End Date Duration Status Esomeprazole Magnesium 20 MG Orally Once a day 1 packet mixed with 15 ml of water 1 hour before a meal 24h May, Active RESULTS No Results PROCEDURES No Known procedures INSTRUCTIONS MEDICATIONS ADMINISTERED No Known Medications MEDICAL (GENERAL) HISTORY Type Description Date Medical [...] episode (or current) manic, moderate Medical History Quit Smoking August 2015 Medical History Systemic involvement of connective tissue, unspecified Medical History Chronic fatigue Medical History Chronic seasonal allergic rhinitis, unspecified trigger Medical History History of anemia Medical History Spinal stenosis of cervical region Medical History Spinal stenosis of lumbar region at multiple levels Medical History Restless leg syndrome Medical History Spinal stenosis of lumbar region at multiple levels Surgical History tubal ligation 2004 Surgical History right knee surgery 01/18/2016 Surgical History tooth removal 06/16/17 Surgical History Biopsy of Uterus 06/19/17 Hospitalization History Surgeries only Hospitalization History ER chest pain 05/2017
--- OUTSIDE RECORDS SUMMARY | 2018-06-15 19:01 | XMS REPORT ---
Author Author ALEX HUTCHINSON [facility] Address [address] [place] [address] Care Team Providers Care Skein Yarn Dyer Helper Name Role Phone ALEX HUTCHINSON Unavailable PROBLEMS Type Condition ICD9-CM Code FDU90-NA Code Onset Dates Condition Status SNOMED Code Problem Arthritis of both knees M19.90 Active 419620352 Problem Insomnia due to medical condition G47.01 Active 981081160 Problem Pre-diabetes R73.03 Active 309290164 Problem Restless leg syndrome G25.81 Active 11071143 Problem Paresthesia of skin R20.2 Active 70891269 Problem Chronic seasonal allergic rhinitis, unspecified trigger J30.2 Active 507225187 Problem No diagnosis or condition on Benson I Z03.89 Active 9513461 Problem Morbid obesity E66.01 Active 129066116 Problem Idiopathic neuropathy G60.9 Active Problem Abnormal x-ray of cervical spine R93.7 Active 106462946 Problem Fibromyalgia M79.7 Active 34485395 Problem Long-term use of high-risk medication Z79.899 Active 743713774 Problem Heartburn R12 Active 80129655 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 54613024 Problem Depression F32.9 Active 26749443 Problem Vitamin D deficiency E55.9 Active 32055143 Problem Other chronic pain G89.29 Active 26445337 ALLERGIES Substance Reaction Event Type Date Status Neurontin Unknown Drug Allergy May, Active Naproxen Unknown Drug Allergy May, Active Lyrica Nausea, diarrhea, headaches Drug Allergy May, Active Effexor Unknown Drug Allergy May, Active Demerol Unknown Drug Allergy May, Active Cymbalta 30 Mg Capsule, Delayed Release(e.c.) Unknown Non Drug Allergy May, Active ENCOUNTERS Encounter Location Date Diagnosis [facility] [address] [facility] [id number] [address] May, BMI 50.0-59.9, adult Z68.43 [place] [id number] [place] [address] 25442- 3199 May, BMI 50.0-59.9, adult Z68.43 [place] [id number] [place] [address] 34752- 3785 May, Fibromyalgia M79.7 ; Restless leg syndrome G25.81 ; Vitamin D deficiency E55.9 ; 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 ; Chronic seasonal allergic rhinitis, unspecified trigger J30.2 ; Heartburn R12 and BMI 50.0-59.9, adult Z68.43 [place] [id number] [place] [address] 68068- 2605 Mar, Vitamin D deficiency E55.9 [facility] [place] [id number] [place] [address] 77187- 2608 Mar, Weight loss counseling, encounter for Z71.3 ; Vitamin D deficiency E55.9 ; Dermatitis L30.9 ; Chronic seasonal allergic rhinitis, unspecified trigger J30.2 ; Heartburn R12 ; Restless leg syndrome G25.81 and BMI 50.0-59.9, adult Z68.43 [place] [id number] [place] [address] 78860- 5240 Mar, Cervicalgia M54.2 ; 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 ; Paresthesia of upper and lower extremities of both sides R20.2 ; Weight loss counseling, encounter for Z71.3 and BMI 50.0-59.9, adult Z68.43 [place] [id number] [place] [address] 27192- 7247 Jan, Encounter for weight loss counseling Z71.3 ; 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 ; Arthritis of both knees M19.90 and BMI 50.0-59.9 , adult Z68.43 [place] [id number] [place] [address] 62962- 6719 Dec, Weight loss counseling, encounter for Z71.3 ; BMI 50.0-59.9 , adult Z68.43 ; 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 ; Abnormal x-ray of cervical spine R93.7 and Vitamin D deficiency E55.9 [place] [id number] [place] [address] 61843- 2095 09 Dec, 2017 Encounter for weight loss counseling Z71.3 ; Fibromyalgia M79.7 and BMI 50.0-59.9, adult Z68.43 [place] [address] 42714- 5510 Nov, [place] [address] 04001- 2864 Nov, Morbid obesity E66.01 ; Paresthesia of upper and lower extremities of both sides R20.2 ; Hair loss L65.9 ; Fibromyalgia M79.7 and BMI 50.0-59.9, adult Z68.43 [place] [address] 04171- 3449 Nov, Vitamin D deficiency E55.9 [place] [address] 24035- 9089 Nov, Arthritis of both knees M19.90 and Vitamin D deficiency E55.9 [facility] [address] [place] [id number] [place] [address] 29948- 1357 Nov, Chronic seasonal allergic rhinitis, unspecified trigger J30.2 and Heartburn R12 [facility] [id number] [place] [address] 32458- 3235 Nov, [place] [address] 46878- 7800 Nov, Vitamin D deficiency E55.9 [place] [address] 81206- 9437 October, Morbid obesity E66.01 ; Hemorrhoids, unspecified hemorrhoid type K64.9 ; Pre-diabetes R73.03 and BMI 50.0-59.9, adult Z68.43 [place] [address] [address] 9918 October, [place] [address] [address] [id number] [place] [address] 59841- 8995 October, [place] [address] [address] [id number] [place] [address] 77765- 1490 October, Left arm numbness R20.0 ; Paresthesia of skin R20.2 ; Anesthesia of skin R20.0 and BMI 50.0-59.9, adult Z68.43 [place] [address] [place] [id number] [place] [address] 22545- 4857 Sep, BMI 50.0-59.9, adult Z68.43 ; Fibromyalgia M79.7 ; Idiopathic neuropathy G60.9 ; Vitamin D deficiency E55.9 ; Chronic seasonal allergic rhinitis, unspecified trigger J30.2 and Long-term use of high-risk medication Z79.899 [place] [id number] [place] [address] 93851- 5074 Aug, Fibromyalgia M79.7 [facility] [place] [address] [address] [id number] [place] [address] 20584- 4514 Aug, No diagnosis or condition on Benson I Z03.89 [facility] [address] [id number] [place] [address] 33461- 2518 Aug, Chronic seasonal allergic rhinitis, unspecified trigger J30.2 ; Fibromyalgia M79.7 ; Heartburn R12 ; Pre-diabetes R73.03 ; Change of voice R49.9 and BMI 50.0-59.9, adult Z68.43 [place] [id number] [place] [address] 67392- 3015 Aug, Fibromyalgia M79.7 [place] [address] [id number] [place] [address] 62491- 6381 May, Chronic seasonal allergic rhinitis, unspecified trigger J30.2 ; Vaginal itching L29.8 and Vaginal yeast infection B37.3 [place] [id number] [place] [address] 86412- 6338 May, Arthritis of both knees M19.90 [facility] [address] 6[address]67 -6307 May, Herpes zoster without complication B02.9 and Vaginal penny B37.[address] 02596- 4333 Mar, [place] [address] 40338- 4641 Mar, Arthritis of both knees M19.[address] 76696- 7054 Mar, Arthritis of both knees M19.90 ; Elevated serum creatinine R79.89 ; Fibromyalgia M79.7 ; Idiopathic neuropathy G60.9 ; Vitamin D deficiency E55.9 ; Pre-diabetes R73.03 and Insomnia due to medical condition G47.01 [place] [address] 80127- 2864 Mar, [address] 40649- 4399 Jan, [address] 76223- 8352 Jan, Pes planus of left foot M21.42 ; Plantar fasciitis of left foot M72.2 and Neuropathy G62.9 [place] [address] [place] [id number] [place] [address] 45017- 0718 Jan, Arthritis of both knees M19.90 ; Fibromyalgia M79.7 ; Idiopathic neuropathy G60.9 ; Vitamin D deficiency E55.9 ; Pre-diabetes R73.03 ; Insomnia due to medical condition G47.01 ; Bad odor of urine R82.90 and SI ( sacroiliac) pain M53.[address] 94650- 4050 Jan, [id number] [place] [address] 75330- 3392 Jan, Elevated serum creatinine R79.89 [place] [address] [address] [id number] [place] [address] 50309- 4750 Dec, [place] [address] [address] [id number] [place] [address] 77685- 5320 Dec, Arthritis of both knees M19.90 ; Fibromyalgia M79.7 ; Idiopathic neuropathy G60.9 ; Vitamin D deficiency E55.9 and Pre-diabetes R73.03 [place] [address] [address] [id number] [place] [address] 62737- 4647 Dec, Arthritis of both knees M19.90 [place] [address] [address] [id number] [place] [address] 16722- 3547 October, [place] [address] [address] [id number] [place] [address] 15697- 2552 October, [place] [address] [address] [id number] [place] [address] 01326- 5424 October, Fibromyalgia M79.7 [place] [address] [address] [id number] [place] [address] 48755- 9745 October, Skin tag L91.8 ; Left foot pain M79.672 and Rash and nonspecific skin eruption R21 [place] [address] [id number] [place] [address] 64148- 0865 Aug, [place] [address] [place] [address] [id number] [place] [address] 50759- 8633 Aug, Arthritis of both knees M19.90 ; Fibromyalgia M79.7 ; Idiopathic neuropathy G60.9 ; Vitamin D deficiency E55.9 ; Morbid obesity due to excess calories E66.01 and History of prediabetes Z87.898 [facility] [id number] [place] [address] 09961 -8826 Aug, Blood in ear canal, right H92.21 [facility] [address] [place] [address] [id number] [place] [address]- 9776 Jul, [facility] [address] [id number] [place] [address] 39711- 7286 Jul, Arthritis of both knees M19.90 ; Fibromyalgia M79.7 ; Idiopathic neuropathy G60.9 and Vitamin D deficiency E55.9 [facility] [id number] [place] [address] 33684- 8488 Jul, Fibromyalgia M79.7 [facility] [id number] [place] [address] 52744- 9308 May, Fibromyalgia M79.7 ; Idiopathic neuropathy G60.9 ; Vitamin D deficiency E55.9 ; Memory change R41.3 ; Xerostomia K11.7 and Heartburn R12 [facility] [id number] [place] [address] 14449- 9403 May, Fibromyalgia M79.7 ; Idiopathic neuropathy G60.9 ; Vitamin D deficiency E55.9 and Memory change R41.3 [place] [id number] [place] [address] 18268- 8296 May, [facility] [address] [id number] [place] [address] 07821- 4378 Mar, [facility] [address] [id number] [place] [address] 77677- 0944 Jan, [facility] [id number] [place] [address] 92764- 2269 Jan, [facility] [id number] [place] [address] 84318- 4839 Jan, Dermatitis L30.9 ; Pain in right shoulder M25.511 ; Fibromyalgia M79.7 and H/O right knee surgery Z98.89 [facility] [id number] [place] [address] 35257- 8884 Dec, [facility] [id number] [place] [address] 18552- 1943 Dec, Middle ear effusion, right H65.91 ; Fibromyalgia M79.7 and Heartburn R12 [facility] [id number] [place] [address] 58788 -8172 Dec, Otalgia of right ear H92.01 and Middle ear effusion, right H65.91 [facility] [address] [id number] [place] [address] 12996- 0309 Nov, Acute pain of right knee M25.561 [facility] [address] 92797- 4494 Nov, [place] [address] 11751- 4932 Nov, Acute pain of right knee M25.561 [place] [address] 46081- 9706 October, Osteoarthritis of both knees, unspecified osteoarthritis type M17.0 [facility] [address] 87886- 8481 October, [place] [address] 29493- 0676 Sep, [facility] [address] [id number] [place] [address] 19149- 3199 Sep, Fibromyalgia M79.7 ; Chronic fatigue R53.82 ; Sinusitis J32.9 ; Bronchiolitis J21.9 ; Weight gain R63.5 and Heartburn R12 [place] [address] [id number] [place] [address] 31814- 9177 Sep, Mild hearing loss of right ear H91.91 and Tinnitus of right ear H93.11 [place] [address] [id number] [place] [address] 37513- 1768 Aug, [place] [address] [id number] [place] [address] 56144- 0052 Aug, Fibromyalgia M79.7 and Depression F32.9 [place] [address] [id number] [place] [address] 12040- 7209 Aug, [place] [address] 00185- 4625 Jul, Fibromyalgia M79.7 ; 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 ; Vitamin D deficiency E55.9 ; Long-term use of high-risk medication Z79.899 ; Heartburn R12 ; Chronic fatigue, unspecified R53.82 and Tinnitus of right ear H93.11 [place] [address] [address] [id number] [place] [address] 54403- 1573 Mar, Fibromyalgia M79.7 ; 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 ; Vitamin D deficiency E55.9 ; Diarrhea R19.7 ; Long-term use of high- risk medication Z79.899 and Heartburn R12 [place] [address] [id number] [place] [address] 31395- 4723 Mar, Fibromyalgia 729.1 ; Unspecified hereditary and idiopathic peripheral neuropathy 356.9 ; Unspecified sleep disturbance 780.50 ; Left ankle pain 719.47 and Insomnia 780.52 [place] [address] 10366- 8606 Mar, Unspecified episodic mood disorder 296.90 and Anxiety state , unspecified 300.00 [place] [address] [place] [id number] [place] [address] 47144- 6136 Mar, Chondromalacia of right knee 717.7 [place] [address] [place] [id number] [place] [address] 96593- 0961 Jan, [place] [address] [place] [id number] [place] [address] 35791- 9673 Dec, Left foot pain 729.5 [place] [address] [place] [id number] [place] [address] 06132- 1692 Sep, [place] [address] [place] [address] [id number] [place] [address] 48248- 3594 Sep, [facility] [place] [facility] [address] [id number] [place] [address]- 0290 17 Aug, 2014 [facility] [place] [facility] [address] [id number] [place] [address]- 6623 17 Aug, 2014 [facility] [place] [facility] [address] [id number] [place] [address]- 8273 16 Aug, 2014 [facility] [place] [facility] [address] [id number] [place] [address]- 1815 16 Aug, 2014 [facility] [place] [facility] [address] [id number] [place] [address]- 9798 11 Aug, 2014 [facility] [place] [facility] [address] [id number] [place] [address]- 0919 11 Aug, 2014 [facility] [place] [facility] [address] [id number] [place] [address]- 9916 11 Aug, 2014 [facility] [place] [facility] [address] [id number] [place] [address]- 5964 11 Aug, 2014 [facility] [place] [facility] [address] [id number] [place] [address]- 1820 10 Aug, 2014 [facility] [place] [facility] [address] [id number] [place] [address]- 4009 10 Aug, 2014 [facility] [place] [facility] [address] [id number] [place] [address]- 6501 05 Aug, 2014 [facility] [place] [facility] [address] [id number] [place] [address]- 9913 05 Aug, 2014 [facility] [place] [facility] [address] [id number] [place] [address]- 2538 Aug, [facility] [place] [facility] [address] [id number] [place] [address]- 2235 Aug, [facility] [place] [facility] [address] [id number] [place] [address]- 6751 09 Aug, 2014 [facility] [place] [facility] [address] [id number] [place] [address]- 5072 Aug, [facility] [place] [facility] [address] [id number] [place] [address]- 6698 Jul, [facility] [place] [facility] [address] [id number] [place] [address]- 2426 Jul, [facility] [place] [facility] [address] [id number] [place] [address]- 2263 Jul, [facility] [place] [facility] [address] [id number] [place] [address]- 4629 Jul, [facility] [place] [facility] [address] [id number] [place] 0000 May, [facility] [place] [facility] [address] [id number] [place] [address]- 1989 May, [facility] [place] [facility] [address] [id number] [place] [address]- 5608 May, [facility] [place] [facility] [address] [id number] [place] [address]- 9216 Mar, [facility] [place] [facility] [address] [id number] [place] [address]- 7540 Mar, [facility] [place] [facility] [address] [id number] [place] [address]- 8945 Mar, [facility] [place] [facility] [address] [id number] [place] [address]- 0216 Mar, [facility] [place] [facility] [address] [id number] [place] [address]- 3660 Dec, [facility] [place] [facility] [address] [id number] [place] 4124 Dec, [facility] [place] [facility] [address] [id number] [place] [address]- 1556 Nov, [facility] [place] [facility] [address] [id number] [place] [address]- 3556 Nov, [facility] [place] [facility] [address] [id number] [place] [address]- 3849 Nov, [facility] [address] [id number] [place] [address]- 9949 Nov, [facility] [place] [facility] [address] [id number] [place] [address]- 2959 Nov, [facility] [address] [id number] [place] [address]- 2530 Nov, [facility] [place] [facility] [address] [id number] [place] [address]- 3249 October, [facility] [address] [id number] [place] [address]- 1740 October, [facility] [address] [id number] [place] [address]- 2479 October, [facility] [address] [id number] [place] [address]- 7673 October, [facility] [address] [id number] [place] [address]- 2763 October, [facility] [place] [facility] [address] [id number] [place] [address]- 6021 October, [facility] [address] [id number] [place] [address]- 5612 October, [facility] [place] [facility] [address] [id number] [place] [address]- 8362 October, [facility] [place] [facility] [address] [id number] [place] [address]- 8241 October, [facility] [place] [facility] [address] [id number] [place] [address]- 4890 October, [facility] [place] [facility] [address] [id number] [place] [address]- 7606 October, [facility] [place] [facility] [address] [id number] [place] [address]- 1982 October, [facility] [place] [facility] [address] [id number] [place] [address]- 4784 October, [facility] [place] [facility] [address] [id number] [place] [address]- 7530 Sep, [facility] [place] [facility] [address] [id number] [place] 7116 Sep, [facility] [place] [facility] [address] [id number] [place] [address]- 1930 Aug, [facility] [place] [facility] [address] [id number] [place] [address]- 4146 Aug, [facility] [place] [facility] [address] [id number] [place] [address]- 7263 Aug, [facility] [place] [facility] [address] [id number] [place] [address]- 8424 Aug, [facility] [place] [facility] [address] [id number] [place] [address]- 1871 Aug, [facility] [place] [facility] [address] [id number] [place] [address]- 4622 Aug, [facility] [place] [facility] [address] [id number] [place] [address]- 5837 Aug, [facility] [place] [facility] [address] [id number] [place] [address]- 9482 Aug, [facility] [place] [facility] [address] [id number] [place] [address]- 7229 Aug, [facility] [place] [facility] [address] [id number] [place] [address]- 8601 Aug, [facility] [place] [facility] [address] [id number] [place] [address]- 6593 Aug, [facility] [place] [facility] [address] [id number] [place] [address]- 3490 Aug, [facility] [place] [facility] [address] [id number] [place] [address]- 0157 Jul, [facility] [address] [id number] [place] [address]- 1751 Jul, [facility] [address] [id number] [place] [address]- 8288 Jul, [facility] [address] [id number] [place] [address]- 0599 Jul, [facility] [address] [id number] [place] [address]- 5213 Mar, [facility] [address] [id number] [place] [address]- 6188 Mar, [facility] [address] [id number] [place] [address]- 7964 Jan, [facility] [address] [id number] [place] [address]- 5783 Sep, [facility] [address] [id number] [place] [address]- 9114 Aug, [facility] [address] [id number] [place] [address]- 5856 Aug, [facility] [address] [id number] [place] [address]- 0139 Aug, [facility] [address] [id number] [place] [address]- 3657 Aug, [facility] [address] [id number] [place] [address]- 9878 Aug, [facility] [address] [id number] [place] [address] October, [facility] [address] [id number] [place] [address] October, [facility] [address] [id number] [place] [address] Sep, [facility] [address] [id number] [place] [address] Sep, [facility] [place] [facility] [address] [id number] [place] [address] Sep, [facility] [place] [facility] [address] [id number] [place] [address] Sep, [facility] [place] [facility] [address] [id number] [place] [address] 18 Sep, 2011 [facility] [place] [facility] [address] [id number] [place] [address] Sep, [facility] [place] [facility] [address] [id number] [place] [address] Sep, [facility] [place] [facility] [address] [id number] [place] [address] Sep, [facility] [place] [facility] [address] [id number] [place] [address] Sep, [facility] [place] [facility] [address] [id number] [place] [address] Sep, [facility] [place] [facility] [address] [id number] [place] [address] Aug, [facility] [place] [facility] [address] [id number] [place] [address] 17 Aug, 2011 [facility] [place] [facility] [address] [id number] [place] [address] Aug, [facility] [place] [facility] [address] [id number] [place] [address] Aug, [facility] [place] [facility] [address] [id number] [place] [address] Jul, [facility] [place] [facility] [address] [id number] [place] [address] Jul, [facility] [place] [facility] [address] [facility] [id number] [place] [id number] Jul, [facility] [address] [id number] [place] [address] May, [facility] [address] [id number] [place] [id number] May, [facility] [address] [id number] [place] [address] May, [facility] [address] [id number] [place] [address] Jan, [facility] [address] [facility] [id number] [place] [address] Dec, IMMUNIZATIONS No Known Immunizations SOCIAL HISTORY Never Assessed REASON FOR VISIT Weight management Ed GENTILE PLAN OF CARE Activity Details Follow Up 3 Months Reason:fibromyalgia VITAL SIGNS Height 68 in 2018-05-19 Weight 347.1 lbs 2018-05-19 Temperature 98.7 degrees Fahrenheit 2018-05-19 Heart Rate 68 bpm 2018-05-19 Respiratory Rate 22 2018-05-19 BMI 52.77 kg/m2 2018-05-19 Blood pressure systolic 124 mmHg 2018-05-19 Blood pressure diastolic 86 mmHg 2018-05-19 MEDICATIONS Medication Instructions Dosage Frequency Start Date End Date Duration Status Tizanidine HCl 4 MG Orally, crushed take with applesauce twice a day 1 tablet 12h 30 days Active Esomeprazole Magnesium 20 mg Orally Once a day 1 packet mixed with 15 ml of water 1 hour before a meal 24h May, 30 day(s) Active Wheelchair - xtra large Jul, Active Cetirizine HCl 1 mg/ml Orally Once a day 10 ml 24h Active Fluticasone Propionate 50 MCG/ACT Nasally Once a day 1 spray in each nostril 24h Active Pilocarpine HCl 5 MG Orally Three times a day 1 tablet 8h Active Ropinirole HCl 0.5 MG Orally, crush and take with applesauce Once a day 1/2- 1 tablet 1 to 3 hours before bedtime 24h Mar, 30 day(s) Active Amitriptyline HCl 10 mg Orally, crush tablets and take with applesauce Once a day at hs 2 tablet 30 days Active Cholecalciferol 83225 UNIT Orally once weekly 1 tablet Active Hydrocodone-Acetaminophen Active RESULTS No Results PROCEDURES No Known [...]
--- OUTSIDE RECORDS SUMMARY | 2018-06-15 19:01 | XMS REPORT ---
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 Name Role Phone ALEX HUTCHINSON Unavailable PROBLEMS Type Condition ICD9-CM Code RHY10-[id number] Code Onset Dates Condition Status SNOMED Code Problem Arthritis of both knees M19.90 Active 366041174 Problem Insomnia due to medical condition G47.01 Active 564420289 Problem Pre-diabetes R73.03 Active 857578281 Problem Restless leg syndrome G25.81 Active 23692550 Problem Paresthesia of skin R20.2 Active 25477387 Problem Chronic seasonal allergic rhinitis, unspecified trigger J30.2 Active 407819990 Problem No diagnosis or condition on Gile I Z03.89 Active 6133994 Problem Morbid obesity E66.01 Active 195803772 Problem Idiopathic neuropathy G60.9 Active Problem Abnormal x-ray of cervical spine R93.7 Active 279034742 Problem Fibromyalgia M79.7 Active 49013438 Problem Long-term use of high-risk medication Z79.899 Active 204049025 Problem Heartburn R12 Active 72020633 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 08874197 Problem Depression F32.9 Active 29289003 Problem Vitamin D deficiency E55.9 Active 84012937 Problem Other chronic pain G89.29 Active 86257952 ALLERGIES No Information ENCOUNTERS Encounter Location Date Diagnosis [facility] [address] [id number], [place] [address] May, BMI 50.0-59.9, adult Z68.43 [facility] [address] [id number], [place] [address] May, BMI 50.0-59.9, adult Z68.43 [facility] [address] [id number], [place] [address] May, BMI 50.0-59.9, adult Z68.43 ; Fibromyalgia M79.7 ; Vitamin D deficiency E55.9 ; 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 ; Chronic seasonal allergic rhinitis, unspecified trigger J30.2 ; Restless leg syndrome G25.81 and Heartburn R12 [address] [address] [id number] [place] [address] 34477- 4953 Mar, Vitamin D deficiency E55.9 [place] [address] 00597- 2403 Mar, Weight loss counseling, encounter for Z71.3 ; Vitamin D deficiency E55.9 ; Dermatitis L30.9 ; Chronic seasonal allergic rhinitis, unspecified trigger J30.2 ; Heartburn R12 ; Restless leg syndrome G25.81 and BMI 50.0-59.9, adult Z68.43 [place] [id number] [place] [address] 35986- 5221 Mar, Cervicalgia M54.2 ; 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 ; Paresthesia of upper and lower extremities of both sides R20.2 ; Weight loss counseling, encounter for Z71.3 and BMI 50.0-59.9, adult Z68.43 [place] [id number] [place] [address] 81114- 7664 Jan, Encounter for weight loss counseling Z71.3 ; 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 ; Arthritis of both knees M19.90 and BMI 50.0-59.9 , adult Z68.43 [place] [id number] [place] [address] 23866- 4136 Dec, Weight loss counseling, encounter for Z71.3 ; BMI 50.0-59.9 , adult Z68.43 ; 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 ; Abnormal x-ray of cervical spine R93.7 and Vitamin D deficiency E55.9 [place] [id number] [place] [address] 70718- 6448 Dec, Encounter for weight loss counseling Z71.3 ; Fibromyalgia M79.7 and BMI 50.0-59.9, adult Z68.43 [place] [id number] [place] [address] 26253- 7050 Nov, [place] [address] 02761- 0156 Nov, Morbid obesity E66.01 ; Paresthesia of upper and lower extremities of both sides R20.2 ; Hair loss L65.9 ; Fibromyalgia M79.7 and BMI 50.0-59.9, adult Z68.43 [place] [address] 27166- 2984 Nov, Vitamin D deficiency E55.9 [place] [address] 98301- 5689 Nov, Arthritis of both knees M19.90 and Vitamin D deficiency E55.9 [place] [address] 93805- 5373 Nov, Chronic seasonal allergic rhinitis, unspecified trigger J30.2 and Heartburn R12 [place] [id number] [place] [address] 47574- 0124 Nov, [place] [address] 05917- 5689 Nov, Vitamin D deficiency E55.9 [place] [id number] [place] [address] 21450- 9044 October, Morbid obesity E66.01 ; Hemorrhoids, unspecified hemorrhoid type K64.9 ; Pre-diabetes R73.03 and BMI 50.0-59.9, adult Z68.43 [place] [address] 38106- 1448 October, [place] [id number] [place] [address] 35688- 9230 October, [place] [address] 55943- 5332 October, Left arm numbness R20.0 ; Paresthesia of skin R20.2 ; Anesthesia of skin R20.0 and BMI 50.0-59.9, adult Z68.43 [place] [id number] [place] [address] 84716- 7335 Sep, BMI 50.0-59.9, adult Z68.43 ; Fibromyalgia M79.7 ; Idiopathic neuropathy G60.9 ; Vitamin D deficiency E55.9 ; Chronic seasonal allergic rhinitis, unspecified trigger J30.2 and Long-term use of high-risk medication Z79.899 [place] [address] 83469- 6449 Aug, Fibromyalgia M79.7 [place] [address] 57787- 0224 Aug, No diagnosis or condition on Gile I Z03.[address] 74572- 0252 Aug, Chronic seasonal allergic rhinitis, unspecified trigger J30.2 ; Fibromyalgia M79.7 ; Heartburn R12 ; Pre-diabetes R73.03 ; Change of voice R49.9 and BMI 50.0-59.9, adult Z68.43 [place] [id number] [place] [address] 58219- 4565 Aug, Fibromyalgia M79.7 [place] [address] 46609- 5516 May, Chronic seasonal allergic rhinitis, unspecified trigger J30.2 ; Vaginal itching L29.8 and Vaginal yeast infection B37.[address] 96625- 2345 May, Arthritis of both knees M19.90 [facility] [id number] [place] [address] 12153 -0597 May, Herpes zoster without complication B02.9 and Vaginal penny B37.[address] [place] [address] 83485- 0092 Mar, [place] [address] 51472- 4168 Mar, Arthritis of both knees M19.90 [place] [id number] [place] [address] 44697- 3985 Mar, Arthritis of both knees M19.90 ; Elevated serum creatinine R79.89 ; Fibromyalgia M79.7 ; Idiopathic neuropathy G60.9 ; Vitamin D deficiency E55.9 ; Pre-diabetes R73.03 and Insomnia due to medical condition G47.01 [place] [address] 93676- 5569 Mar, [place] [address] 14682- 3354 Jan, [place] [address] 39825- 3721 Jan, Pes planus of left foot M21.42 ; Plantar fasciitis of left foot M72.2 and Neuropathy G62.9 [place] [id number] [place] [address] 56399- 7628 Jan, Arthritis of both knees M19.90 ; Fibromyalgia M79.7 ; Idiopathic neuropathy G60.9 ; Vitamin D deficiency E55.9 ; Pre-diabetes R73.03 ; Insomnia due to medical condition G47.01 ; Bad odor of urine R82.90 and SI ( sacroiliac) pain M53.3 [place] [id number] [place] [address] 24814- 1629 Jan, [place] [address] 51110- 0247 Jan, Elevated serum creatinine R79.89 [place] [id number] [place] [address] 65268- 8066 Dec, [place] [address] 92945- 3796 Dec, Arthritis of both knees M19.90 ; Fibromyalgia M79.7 ; Idiopathic neuropathy G60.9 ; Vitamin D deficiency E55.9 and Pre-diabetes R73.03 [place] [id number] [place] [address] 64201- 5550 Dec, Arthritis of both knees M19.90 [place] [address] 60426- 4226 October, [place] [address] 38904- 1028 October, [place] [address] 31712- 9315 October, Fibromyalgia M79.7 [place] [address] 06984- 9211 October, Skin tag L91.8 ; Left foot pain M79.672 and Rash and nonspecific skin eruption R21 [place] [id number] [place] [address] 72983- 7293 Aug, [place] [address] 34998- 1290 Aug, Arthritis of both knees M19.90 ; Fibromyalgia M79.7 ; Idiopathic neuropathy G60.9 ; Vitamin D deficiency E55.9 ; Morbid obesity due to excess calories E66.01 and History of prediabetes Z87.898 [facility] [id number] [place] [address] 60124 -4038 Aug, Blood in ear canal, right H92.21 [place] [id number] [place] [address] 26315- 5480 Jul, [place] [address] 85829- 8717 Jul, Arthritis of both knees M19.90 ; Fibromyalgia M79.7 ; Idiopathic neuropathy G60.9 and Vitamin D deficiency E55.9 [place] [id number] [place] [address] 32276- 0831 Jul, Fibromyalgia M79.7 [place] [address] 97061- 1339 May, Fibromyalgia M79.7 ; Idiopathic neuropathy G60.9 ; Vitamin D deficiency E55.9 ; Memory change R41.3 ; Xerostomia K11.7 and Heartburn R12 [place] [address] 61021- 0578 May, Fibromyalgia M79.7 ; Idiopathic neuropathy G60.9 ; Vitamin D deficiency E55.9 and Memory change R41.3 [place] [id number] [place] [address] 81298- 9981 May, [place] [id number] [place] [address] 83175- 0390 Mar, [place] [id number] [place] [address] 34342- 7348 Jan, [place] [id number] [place] [address] 20991- 2273 Jan, [place] [id number] [place] [address] 05071- 8223 Jan, Dermatitis L30.9 ; Pain in right shoulder M25.511 ; Fibromyalgia M79.7 and H/O right knee surgery Z98.89 [place] [id number] [place] [address] 22703- 4411 Dec, [place] [id number] [place] [address] 72162- 7963 Dec, Middle ear effusion, right H65.91 ; Fibromyalgia M79.7 and Heartburn R12 [facility] [address] [place] [address] 22114 -7512 Dec, Otalgia of right ear H92.01 and Middle ear effusion, right H65.91 [place] [id number] [place] [address] 49815- 0851 17 Nov, 2015 Acute pain of right knee M25.561 [place] [id number] [place] [address] 43577- 7963 Nov, [place] [id number] [place] [address] 70043- 5528 Nov, Acute pain of right knee M25.561 [place] [id number] [place] [address] 91682- 6287 October, Osteoarthritis of both knees, unspecified osteoarthritis type M17.0 [id number] [place] [address] 39516- 4236 October, [id number] [place] [address] 19159- 0785 Sep, [id number] [place] [address] 10697- 1340 Sep, Fibromyalgia M79.7 ; Chronic fatigue R53.82 ; Sinusitis J32.9 ; Bronchiolitis J21.9 ; Weight gain R63.5 and Heartburn R12 [id number] [place] [address] 62792- 2832 Sep, Mild hearing loss of right ear H91.91 and Tinnitus of right ear H93.11 [id number] [place] [address] 09160- 2020 Aug, [id number] [place] [address] 93965- 1934 Aug, Fibromyalgia M79.7 and Depression F32.9 [id number] [place] [address] 57670- 6492 Aug, [id number] [place] [address] 84412- 8127 Jul, Fibromyalgia M79.7 ; 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 ; Vitamin D deficiency E55.9 ; Long-term use of high-risk medication Z79.899 ; Heartburn R12 ; Chronic fatigue, unspecified R53.82 and Tinnitus of right ear H93.11 [id number] [place] [address] 39771- 1297 Mar, Fibromyalgia M79.7 ; 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 ; Vitamin D deficiency E55.9 ; Diarrhea R19.7 ; Long-term use of high- risk medication Z79.899 and Heartburn R12 [place] [id number] [place] [address] 24230- 0698 Mar, Fibromyalgia 729.1 ; Unspecified hereditary and idiopathic peripheral neuropathy 356.9 ; Unspecified sleep disturbance 780.50 ; Left ankle pain 719.47 and Insomnia 780.52 [id number] [place] [address] 76775- 0430 Mar, Unspecified episodic mood disorder 296.90 and Anxiety state , unspecified 300.00 [id number] [place] [address] 04043- 2090 Mar, Chondromalacia of right knee 717.7 [id number] [place] [address] 12701- 5059 Jan, [id number] [place] [address] 58728- 6461 Dec, Left foot pain 729.5 [place] [id number] [place] [address] 99666- 6961 Sep, [place] [id number] [place] [address] 39852- 4413 Sep, [address] 08036135- 8056 Aug, [id number] [place] [address] 61237136- 8860 Aug, [address] 07921977- 6445 Aug, [facility] [place] [facility] [address] [id number] [place] [address]- 5151 16 Aug, 2014 [facility] [place] [facility] [address] [id number] [place] [address]- 6470 Aug, [facility] [place] [facility] [address] [id number] [place] [address]- 0339 Aug, [facility] [place] [facility] [address] [id number] [place] [address]- 1362 Aug, [facility] [place] [facility] [address] [id number] [place] [address]- 8968 Aug, [facility] [place] [facility] [address] [id number] [place] [address]- 3048 Aug, [facility] [place] [facility] [address] [id number] [place] [address]- 2115 Aug, [facility] [place] [facility] [address] [id number] [place] [address]- 9322 Aug, [facility] [place] [facility] [address] [id number] [place] [address]- 8045 Aug, [facility] [place] [facility] [address] [id number] [place] [address]- 0394 Aug, [facility] [place] [facility] [address] [id number] [place] [address]- 5779 Aug, [facility] [place] [facility] [address] [id number] [place] [address]- 6202 Aug, [facility] [place] [facility] [address] [id number] [place]90 Aug, [facility] [place] [facility] [address] [id number] [place] [address]- 2185 Jul, [facility] [place] [facility] [address] [id number] [place] 8330 Jul, [facility] [place] [facility] [address] [id number] [place] [address]- 0899 Jul, [facility] [place] [facility] [address] [id number] [place] [address]- 2557 Jul, [facility] [place] [facility] [address] [id number] [place] [address]- 4346 May, [facility] [place] [facility] [address] [id number] [place] [address]- 2440 May, [facility] [place] [facility] [address] [id number] [place] [address]- 1210 May, [facility] [place] [facility] [address] [id number] [place] [address]- 0372 Mar, [facility] [place] [facility] [address] [id number] [place] [address]- 4509 Mar, [facility] [place] [facility] [address] [id number] [place] [address]- 7565 Mar, [facility] [place] [facility] [address] [id number] [place] [address]- 4915 Mar, [facility] [place] [facility] [address] [id number] [place] [address]- 0313 Dec, [facility] [place] [facility] [address] [id number] [place] [address]- 8361 Dec, [facility] [place] [facility] [address] [id number] [place] [address]- 9421 Nov, [facility] [place] [facility] [address] [id number] [place] [address]- 0372 Nov, [facility] [place] [facility] [address] [id number] [place] [address]- 4701 Nov, [facility] [place] [facility] [address] [id number] [place] [address]- 2195 Nov, [facility] [place] [facility] [address] [id number] [place] [address]- 0996 Nov, [facility] [place] [facility] [address] [id number] [place] [address]- 9897 Nov, [facility] [place] [facility] [address] [id number] [place] [address]- 7872 October, [facility] [place] [facility] [address] [id number] [place] [address]- 7395 October, [facility] [place] [facility] [address] [id number] [place] [address]- 2331 October, [facility] [place] [facility] [address] [id number] [place] [address]- 9388 October, [facility] [place] [facility] [address] [id number] [place] [address]- 8012 October, [facility] [place] [facility] [address] [id number] [place] [address]- 4399 October, [facility] [place] [facility] [address] [id number] [place] [address]- 8127 October, [facility] [place] [facility] [address] [id number] [place] [address]- 5742 October, [facility] [place] [facility] [address] [id number] [place] [address]- 7681 October, [facility] [place] [facility] [address] [id number] [place] [address]- 0568 October, [facility] [place] [facility] [address] [id number] [place] [address]- 3574 October, [facility] [place] [facility] [address] [id number] [place] [address]- 6078 October, [facility] [place] [facility] [address] [id number] [place] [address]- 3612 October, [facility] [place] [facility] [address] [id number] [place] [address]- 9605 Sep, [facility] [place] [facility] [address] [id number] [address]- 5587 Sep, [facility] [place] [facility] [address] [id number] [place] [address]- 5019 Aug, [facility] [place] [facility] [address] [id number] [place] [address]- 7340 Aug, [facility] [place] [facility] [address] [id number] [place] [address]- 6685 Aug, [facility] [place] [facility] [address] [id number] [place] [address]- 0630 Aug, [facility] [place] [facility] [address] [id number] [place] 9391 Aug, [facility] [place] [facility] [address] [id number] [place] [address]- 0379 Aug, [facility] [place] [facility] [address] [facility] [id number] [place] [address]- 4615 Aug, [facility] [place] [facility] [address] [facility] [id number] [place] [address]- 2192 Aug, [facility] [place] [facility] [address] [facility] [id number] [place] [address]- 6385 Aug, [facility] [place] [facility] [address] [facility] [id number] [place] [address]- 4452 Aug, [facility] [place] [facility] [address] [facility] [id number] [place] [address]- 6119 Aug, [facility] [place] [facility] [address] [facility] [id number], [place] [address]- 9311 Aug, [facility] [place] [facility] [address] [id number], [place] [address]- 4369 Jul, [facility] [place] [facility] [address] [id number], [place] [address]- 4104 Jul, [facility] [place] [facility] [address] [facility] [id number], [place] [address]- 5405 Jul, [facility] [place] [facility] [address] [id number] [place] [address]- 4710 Jul, [facility] [address] [id number] [place] [address]- 9806 Mar, [facility] [place] [facility] [address] [id number] [place] [address]- 2059 Mar, [facility] [place] [facility] [address] [id number] [place] [address]- 4401 Jan, [facility] [place] [facility] [address] [id number] [place] [address]- 9846 Sep, [facility] [place] [facility] [address] [id number] [place] [address]- 9409 14 Aug, 2012 [facility] [address] [facility] [id number] [place] [address]- 0022 Aug, [facility] [address] [id number] [place] [address]- 9991 Aug, [facility] [address] [id number] [place] [address]- 0555 Aug, [facility] [address] [facility] [id number] [place] [address]- 9700 Aug, [facility] [place] [facility] [address] [id number] [place] [address]- 8499 October, [facility] [address] [id number] [place] [address]- 5867 October, [facility] [place] [facility] [address] [id number] [place] [address] Sep, [facility] [place] [facility] [address] [id number] [place] [address] Sep, [facility] [place] [facility] [address] [id number] [place] [address] Sep, [facility] [place] [facility] [address] [id number] [place] [address] 19 Sep, 2011 [facility] [address] [id number] [place] [address] 18 Sep, 2011 [facility] [place] [facility] [address] [id number] [place] [address] 11 Sep, 2011 [facility] [address] [id number] [place] [address] 10 Sep, 2011 [facility] [address] [id number] [place] [address] 09 Sep, 2011 [facility] [address] [id number] [place] [address] 07 Sep, 2011 [facility] [address] [id number] [place] [address] 06 Sep, 2011 [facility] [address] [id number] [place] [address] Aug, [facility] [place] [facility] [address] [id number] [place] [address] 17 Aug, 2011 [facility] [address] [id number] [place] [address] 13 Aug, 2011 [facility] [address] [facility] [id number] [place] [address] Aug, [facility] [address] [facility] [id number] [place] [address] Jul, [facility] [place] [facility] [address] [id number] [place] [address] Jul, [facility] [place] [facility] [address] [id number] [place] [address] Jul, [facility] [place] [facility] [address] [id number] [place] [address] May, [facility] [place] [facility] [address] [facility] [id number] [place] [address] May, [facility] [place] [facility] [address] [facility] [id number] [place] [address] May, [facility] [address] [facility] [id number] [address] Jan, [facility] [address] [facility] [id number] [place] [address] Dec, IMMUNIZATIONS No Known Immunizations SOCIAL HISTORY Never Assessed REASON FOR VISIT Prior Authorization Request PLAN OF CARE VITAL SIGNS MEDICATIONS Medication Instructions Dosage Frequency Start Date End Date Duration Status Esomeprazole Magnesium 10 MG Orally Once a day 2 packet mixed with 15 ml of water [...]
[2018-06-15] MEDS ORDERED: ONDA4SOL11 (19:02)
[2018-06-15] MEDS ORDERED: HYDR118S10 (19:02)
[2018-06-15] MEDS ORDERED: AMIT25TA9 (19:02)
[2018-06-15] MEDS ORDERED: ERGO50006 (19:02)
[2018-06-15] MEDS ORDERED: CETI-265 (19:02)
--- OUTSIDE RECORDS SUMMARY | 2018-06-15 19:02 | XMS REPORT ---
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 Name Role Phone ALEX HUTCHINSON Unavailable PROBLEMS Type Condition ICD9-CM Code MPH56-ZK Code Onset Dates Condition Status SNOMED Code Problem Arthritis of both knees M19.90 Active 325723407 Problem Insomnia due to medical condition G47.01 Active 374308743 Problem Pre-diabetes R73.03 Active 469548223 Problem Restless leg syndrome G25.81 Active 96986359 Problem Paresthesia of skin R20.2 Active 28583021 Problem Chronic seasonal allergic rhinitis, unspecified trigger J30.2 Active 918820350 Problem No diagnosis or condition on Paradox I Z03.89 Active 7476633 Problem Morbid obesity E66.01 Active 046711479 Problem Idiopathic neuropathy G60.9 Active Problem Abnormal x-ray of cervical spine R93.7 Active 264561224 Problem Fibromyalgia M79.7 Active 17664816 Problem Long-term use of high-risk medication Z79.899 Active 283849579 Problem Heartburn R12 Active 01329234 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 28585258 Problem Depression F32.9 Active 57957656 Problem Vitamin D deficiency E55.9 Active 23847588 Problem Other chronic pain G89.29 Active 75516344 ALLERGIES Substance Reaction Event Type Date Status Neurontin Unknown Drug Allergy Mar, Active Naproxen Unknown Drug Allergy Mar, Active Lyrica Nausea, diarrhea, headaches Drug Allergy Mar, Active Effexor Unknown Drug Allergy Mar, Active Demerol Unknown Drug Allergy Mar, Active Cymbalta 30 Mg Capsule, Delayed Release(e.c.) Unknown Non Drug Allergy Mar, Active ENCOUNTERS Encounter Location Date Diagnosis [facility] [address] [facility] [id number] [address] May, [place] [id number] [place] [address] 82621- 7612 Mar, Weight loss counseling, encounter for Z71.3 ; Vitamin D deficiency E55.9 ; Dermatitis L30.9 ; Chronic seasonal allergic rhinitis, unspecified trigger J30.2 ; Heartburn R12 ; Restless leg syndrome G25.81 and BMI 50.0-59.9, adult Z68.43 [place] [address] [address] Mar, Cervicalgia M54.2 ; 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 ; Paresthesia of upper and lower extremities of both sides R20.2 ; Weight loss counseling, encounter for Z71.3 and BMI 50.0-59.9, adult Z68.[address] [address]- [address] Jan, Encounter for weight loss counseling Z71.3 ; 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 ; Arthritis of both knees M19.90 and BMI 50.0-59.9 , adult Z68.43 [place] [id number] [place] [address] 46128- 5612 Dec, Weight loss counseling, encounter for Z71.3 ; BMI 50.0-59.9 , adult Z68.43 ; 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 ; Abnormal x-ray of cervical spine R93.7 and Vitamin D deficiency E55.9 [place] [id number] [place] [address] 00276- 2557 Dec, Encounter for weight loss counseling Z71.3 ; Fibromyalgia M79.7 and BMI 50.0-59.9, adult Z68.43 [place] [address] [address]- 7938 Nov, [place] [address] 02593- 7522 Nov, Morbid obesity E66.01 ; Paresthesia of upper and lower extremities of both sides R20.2 ; Hair loss L65.9 ; Fibromyalgia M79.7 and BMI 50.0-59.9, adult Z68.43 [place] [id number] [place] [address] 74863- 6687 Nov, Vitamin D deficiency E55.9 [place] [id number] [place] [address] 24917- 4819 07 Nov, 2017 Arthritis of both knees M19.90 and Vitamin D deficiency E55.9 [place] [address] 21241- 9649 Nov, Chronic seasonal allergic rhinitis, unspecified trigger J30.2 and Heartburn R12 [address] [address]- [address]66 Nov, [place] [address] 44230- 0286 Nov, Vitamin D deficiency E55.9 [place] [address] 52645- 8398 October, Morbid obesity E66.01 ; Hemorrhoids, unspecified hemorrhoid type K64.9 ; Pre-diabetes R73.03 and BMI 50.0-59.9, adult Z68.43 [place] [id number] [place] [address] 69295- 2784 October, [place] [id number] [place] [address] 41189- 4584 October, [place] [id number] [place] [address] 50945- 8219 October, Left arm numbness R20.0 ; Paresthesia of skin R20.2 ; Anesthesia of skin R20.0 and BMI 50.0-59.9, adult Z68.43 [place] [id number] [place] [address] 68611- 1486 Sep, BMI 50.0-59.9, adult Z68.43 ; Fibromyalgia M79.7 ; Idiopathic neuropathy G60.9 ; Vitamin D deficiency E55.9 ; Chronic seasonal allergic rhinitis, unspecified trigger J30.2 and Long-term use of high-risk medication Z79.899 [place] [address] 66523- 2523 Aug, Fibromyalgia M79.7 [facility] [id number] [place] [address] 35750- 9430 Aug, No diagnosis or condition on Paradox I Z03.89 [place] [address] 237583- 1340 Aug, Chronic seasonal allergic rhinitis, unspecified trigger J30.2 ; Fibromyalgia M79.7 ; Heartburn R12 ; Pre-diabetes R73.03 ; Change of voice R49.9 and BMI 50.0-59.9, adult Z68.43 [place] [address] 74020- 2247 Aug, Fibromyalgia M79.7 [place] [address] 19109- 9957 May, Chronic seasonal allergic rhinitis, unspecified trigger J30.2 ; Vaginal itching L29.8 and Vaginal yeast infection B37.3 [place] [id number] [place] [address] 74031- 2312 May, Arthritis of both knees M19.90 [facility] [id number] [place] [address] 86357 -6311 May, Herpes zoster without complication B02.9 and Vaginal penny B37.3 [facility] [id number] [place] [address] 84014- 8033 Mar, [facility] [address] 69185- 8887 Mar, Arthritis of both knees M19.90 [facility] [id number] [place] [address] 12621- 7524 Mar, Arthritis of both knees M19.90 ; Elevated serum creatinine R79.89 ; Fibromyalgia M79.7 ; Idiopathic neuropathy G60.9 ; Vitamin D deficiency E55.9 ; Pre-diabetes R73.03 and Insomnia due to medical condition G47.01 [place] [id number] [place] [address] 36913- 7083 Mar, [place] [id number] [place] [address] 43442- 9922 Jan, [place] [address] 30490- 7277 Jan, Pes planus of left foot M21.42 ; Plantar fasciitis of left foot M72.2 and Neuropathy G62.9 [place] [id number] [place] [address] 62709- 1835 Jan, Arthritis of both knees M19.90 ; Fibromyalgia M79.7 ; Idiopathic neuropathy G60.9 ; Vitamin D deficiency E55.9 ; Pre-diabetes R73.03 ; Insomnia due to medical condition G47.01 ; Bad odor of urine R82.90 and SI ( sacroiliac) pain M53.3 [place] [id number] [place] [address] 54502- 2053 Jan, [place] [id number] [place] [address] 99726- 6163 Jan, Elevated serum creatinine R79.89 [place] [id number] [place] [address] 27242- 9163 Dec, [place] [id number] [place] [address] 75379- 8600 Dec, Arthritis of both knees M19.90 ; Fibromyalgia M79.7 ; Idiopathic neuropathy G60.9 ; Vitamin D deficiency E55.9 and Pre-diabetes R73.03 [place] [id number] [place] [address] 80022- 7211 Dec, Arthritis of both knees M19.90 [place] [id number] [place] [address] 31297- 1316 October, [facility] [id number] [place] [address] 95476- 5483 October, [facility] [address] 23595- 3448 October, Fibromyalgia M79.7 [place] [address] 80506- 9593 October, Skin tag L91.8 ; Left foot pain M79.672 and Rash and nonspecific skin eruption R21 [place] [id number] [place] [address] 94506- 5614 Aug, [place] [address] 39127- 1009 Aug, Arthritis of both knees M19.90 ; Fibromyalgia M79.7 ; Idiopathic neuropathy G60.9 ; Vitamin D deficiency E55.9 ; Morbid obesity due to excess calories E66.01 and History of prediabetes Z87.898 [facility] [id number] [place] [address] 59425 -3075 Aug, Blood in ear canal, right H92.21 [place] [id number] [place] [address] 52014- 6485 Jul, [place] [id number] [place] [address] 92677- 0463 Jul, Arthritis of both knees M19.90 ; Fibromyalgia M79.7 ; Idiopathic neuropathy G60.9 and Vitamin D deficiency E55.9 [place] [id number] [place] [address] 96328- 0560 Jul, Fibromyalgia M79.7 [place] [address] 12639- 3139 May, Fibromyalgia M79.7 ; Idiopathic neuropathy G60.9 ; Vitamin D deficiency E55.9 ; Memory change R41.3 ; Xerostomia K11.7 and Heartburn R12 [place] [id number] [place] [address] 73268- 2294 May, Fibromyalgia M79.7 ; Idiopathic neuropathy G60.9 ; Vitamin D deficiency E55.9 and Memory change R41.3 [facility] [id number] [place] [address] 23468- 3671 May, [facility] [id number] [place] [address] 64870- 6369 Mar, [facility] [id number] [place] [address] 80815- 8401 Jan, [facility] [address] 09165- 7760 Jan, [facility] [id number] [place] [address] 65715- 3365 Jan, Dermatitis L30.9 ; Pain in right shoulder M25.511 ; Fibromyalgia M79.7 and H/O right knee surgery Z98.89 [facility] [id number] [place] [address] 97951- 1653 Dec, [facility] [id number] [place] [address] 13749- 6369 Dec, Middle ear effusion, right H65.91 ; Fibromyalgia M79.7 and Heartburn R12 [facility] [id number] [place] [address] 64882 -2894 Dec, Otalgia of right ear H92.01 and Middle ear effusion, right H65.91 [facility] [id number] [place] [address] 00409- 7727 Nov, Acute pain of right knee M25.561 [facility] [id number] [place] [address] 65382- 0533 Nov, [facility] [id number] [place] [address] 80398- 3137 Nov, Acute pain of right knee M25.561 [place] [id number] [place] [address] 32986- 5123 October, Osteoarthritis of both knees, unspecified osteoarthritis type M17.0 [place] [id number] [place] [address] 21918- 0533 October, [place] [id number] [place] [address] 58587- 0627 Sep, [place] [id number] [place] [address] 29135- 6902 Sep, Fibromyalgia M79.7 ; Chronic fatigue R53.82 ; Sinusitis J32.9 ; Bronchiolitis J21.9 ; Weight gain R63.5 and Heartburn R12 [place] [id number] [place] [address] 61954- 0999 Sep, Mild hearing loss of right ear H91.91 and Tinnitus of right ear H93.11 [place] [id number] [place] [address] 28361- 4427 Aug, [place] [id number] [place] [address] 82581- 8525 Aug, Fibromyalgia M79.7 and Depression F32.9 [place] [id number] [place] [address] 96704- 2555 Aug, [place] [id number] [place] [address] 30269- 3947 Jul, Fibromyalgia M79.7 ; 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 ; Vitamin D deficiency E55.9 ; Long-term use of high-risk medication Z79.899 ; Heartburn R12 ; Chronic fatigue, unspecified R53.82 and Tinnitus of right ear H93.11 [address] [place] [address] 61065- 0832 07 Mar, 2015 Fibromyalgia M79.7 ; 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 ; Vitamin D deficiency E55.9 ; Diarrhea R19.7 ; Long-term use of high- risk medication Z79.899 and Heartburn R12 [facility] [address] [address]- 5576 Mar, Fibromyalgia 729.1 ; Unspecified hereditary and idiopathic peripheral neuropathy 356.9 ; Unspecified sleep disturbance 780.50 ; Left ankle pain 719.47 and Insomnia 780.52 [facility] [id number] [place] [address] 19206- 9327 Mar, Unspecified episodic mood disorder 296.90 and Anxiety state , unspecified 300.00 [facility] [id number] [place] [address] 34321- 0922 Mar, Chondromalacia of right knee 717.7 [facility] [id number] [place] [address] 48033- 7310 Jan, [facility] [id number] [place] [address] 61749- 7965 Dec, Left foot pain 729.5 [facility] [id number] [place] [address] 58567- 1688 Sep, [facility] [id number] [place] [address] 19427- 7790 Sep, [facility] [id number] [place] [address] 11625- 0576 17 Aug, 2014 [facility] [id number] [place] [address] 91660- 2589 17 Aug, 2014 [facility] [id number] [place] [address] 69978- 3557 16 Aug, 2014 [facility] [id number] [place] [address] 77890- 4342 16 Aug, 2014 [facility] [id number] [place] [address] [id number]- 1860 11 Aug, 2014 [facility] [id number] [place] [address] 38011- 7114 Aug, [facility] [place] [facility] [address] [id number] [place] [address]- 3311 Aug, [facility] [place] [facility] [address] [id number] [place] [address]- 4268 Aug, [facility] [place] [facility] [address] [id number] [place] [address]- 8643 Aug, [facility] [place] [facility] [address] [id number] [place] [address]- 0729 Aug, [facility] [place] [facility] [address] [id number] [place] [address]- 9400 Aug, [facility] [place] [facility] [address] [id number] [place] [address]- 5683 Aug, [facility] [place] [facility] [address] [id number] [place] [address]- 9592 Aug, [facility] [place] [facility] [address] [id number] [place] [address]- 2879 Aug, [facility] [place] [facility] [address] [id number] [place] [address]- 7544 Aug, [facility] [place] [facility] [address] [id number] [place] [address]- 1146 Aug, [facility] [place] [facility] [address] [facility] [id number] [place] [address]- 2143 Jul, [facility] [place] [facility] [address] [id number] [place] [address]- 7209 Jul, [facility] [place] [facility] [address] [id number] [place] [address]- 7376 Jul, [facility] [place] [facility] [address] [id number] [place] [address]- 3046 Jul, [facility] [place] [facility] [address] [id number] [place] [address]- 3455 May, [facility] [place] [facility] [address] [id number] [place] [address]- 0116 May, [facility] [place] [facility] [address] [id number] [place] 8501 May, [facility] [place] [facility] [address] [id number] [place] [address]- 6323 Mar, [facility] [place] [facility] [address] [id number] [place] [address]- 4366 Mar, [facility] [place] [facility] [address] [id number] [place] [address]- 2077 Mar, [facility] [place] [facility] [address] [id number] [place] [address]- 6212 Mar, [facility] [place] [facility] [address] [id number] [place] [address]- 0967 Dec, [facility] [place] [facility] [address] [id number] [place] [address]- 2492 Dec, [facility] [place] [facility] [address] [id number] [place] [address]- 6866 Nov, [facility] [place] [facility] [address] [id number] [place] [address]- 3028 Nov, [facility] [place] [facility] [address] [id number] [place] [address]- 7123 Nov, [facility] [place] [facility] [address] [id number] [place] [address]- 8943 Nov, [facility] [place] [facility] [address] [id number] [place] [address]- 0419 Nov, [facility] [place] [facility] [address] [id number] [place] [address]- 5338 Nov, [facility] [place] [facility] [address] [id number] [place] [address]- 9576 October, [facility] [place] [facility] [address] [id number] [place] [address]- 9248 October, [facility] [place] [facility] [address] [id number] [place] [address]- 5677 October, [facility] [address] [id number] [place] [address]- 9155 October, [facility] [address] [id number] [place] [address]- 9806 October, [facility] [address] [id number] [place] [address]- 1249 October, [facility] [address] [id number] [place] [address]- 3889 October, [facility] [address] [id number] [place] [address]- 9890 October, [facility] [address] [id number] [place] [address]- 7576 October, [facility] [address] [id number] [place] [address]- 0407 October, [facility] [address] [id number] [place] [address]- 4763 October, [facility] [address] [id number] [place] [address]- 6060 October, [facility] [address] [id number] [place] [address]- 6570 October, [facility] [address] [id number] [place] [address]- 7954 Sep, [facility] [address] [id number] [place] [address]- 3075 Sep, [facility] [place] [facility] [address] [id number] [place] [address]- 8749 Aug, [facility] [place] [facility] [address] [id number] [place] [address]- 2566 Aug, [facility] [address] [id number] [place] [address]- 2660 Aug, [facility] [place] [facility] [address] [id number] [place] [address]- 3377 Aug, [facility] [place] [facility] [address] [id number] [place] [address]- 4280 Aug, [facility] [place] [facility] [address] [id number] [place] [address]- 7023 Aug, [facility] [place] [facility] [address] [id number] [place] [address]- 3383 Aug, [facility] [place] [facility] [address] [id number] [place] [address]- 0677 Aug, [facility] [place] [facility] [address] [id number] [place] [address]- 8880 Aug, [facility] [place] [facility] [address] [id number] [place] [address]- 8557 Aug, [facility] [place] [facility] [address] [id number] [place] [address]- 6052 Aug, [facility] [place] [facility] [address] [id number] [place] [address]- 9398 Aug, [facility] [place] [facility] [address] [id number] [place] [address]- 5437 Jul, [facility] [place] [facility] [address] [id number] [place] [address]- 7920 Jul, [facility] [place] [facility] [address] [id number] [address]- 7307 Jul, [facility] [place] [facility] [address] [id number] [place] [address]- 1118 Jul, [facility] [place] [facility] [address] [id number] [place] [address]- 0083 Mar, [facility] [place] [facility] [address] [id number] [place] [address]- 9634 Mar, [facility] [place] [facility] [address] [id number] [place] [address]- 6229 Jan, [facility] [address] [id number] [place] [address] Sep, [facility] [address] [id number] [place] [address] 14 Aug, 2012 [facility] [address] [id number] [place] [address] 12 Aug, 2012 [facility] [address] [id number] [place] [address] 254 08 Aug, 2012 [facility] [address] [id number] [place] [address] 07 Aug, 2012 [facility] [address] [id number] [place] [address] 05 Aug, 2012 [facility] [address] [id number] [place] [address] October, [facility] [address] [id number] [place] [address] October, [facility] [address] [id number] [place] [address] 27 Sep, 2011 [facility] [address] [id number] [place] [address] 26 Sep, 2011 [facility] [address] [id number] [place] [address] 25 Sep, 2011 [facility] [address] [id number] [place] [address] 19 Sep, 2011 [facility] [place] [facility] [address] [id number] [place] [address] 18 Sep, 2011 [facility] [address] [id number] [place] [address] 11 Sep, 2011 [facility] [address] [id number] [place] [address] Sep, [facility] [address] [facility] [id number] [place] [address] Sep, [facility] [address] [facility] [id number] [place] [address] Sep, [facility] [address] [facility] [id number] [place] [address] Sep, [facility] [address] [facility] [id number] [place] [address] Aug, [facility] [address] [facility] [id number] [place] [address] 17 Aug, 2011 [facility] [address] [facility] [id number] [place] [address] 13 Aug, 2011 [facility] [address] [facility] [id number] [place] [address] Aug, [facility] [address] [id number] [address] Jul, [facility] [address] [id number] [address] Jul, [facility] [address] [id number] [address] Jul, [facility] [address] [id number] [address] May, [facility] [address] [facility] [id number] [address] May, [facility] [address] [facility] [id number] [address] May, [facility] [address] [facility] [id number] [address] Jan, [facility] [address] [id number] [address] Dec, IMMUNIZATIONS No Known Immunizations SOCIAL HISTORY Never Assessed REASON FOR VISIT Weight loss follow up- [place], [place] PLAN OF CARE Activity Details Follow Up 4 Weeks Reason: Pending Test VITAMIN D, 25-H VITAL SIGNS Height 68 in 2018-04-21 Weight 345.5 lbs 2018-04-21 Temperature 99.3 degrees Fahrenheit 2018-04-21 Heart Rate 99 bpm 2018-04-21 Respiratory Rate 22 2018-04-21 BMI 52.53 kg/m2 2018-04-21 Blood pressure systolic 134 mmHg 2018-04-21 Blood pressure diastolic 84 mmHg 2018-04-21 MEDICATIONS Medication Instructions Dosage Frequency Start Date End Date Duration Status Clobetasol Propionate 0.05 % Externally Twice a day 1 application to affected area 12h Mar, May, 10 day(s) Active Fluticasone Propionate 50 MCG/ACT Nasally Once a day 1 spray in each nostril 24h Active Pilocarpine HCl 5 MG Orally Three times a day 1 tablet 8h Active Ropinirole HCl 0.5 MG Orally Once a day 1/2-1 tablet 1 to 3 hours before bedtime 24h Mar, 30 day(s) Active Omeprazole 40 mg Orally Once a day 1 capsule 24h 30 days Active Cetirizine HCl 10 mg Orally Once a day 1 tablet 24h 30 days Active Hydrocodone-Acetaminophen 7.5-325 MG Orally daily prn 1/2-1 tablet Mar, Mar, 28 days Active Wheelchair - xtra large Jul, Active Tizanidine HCl 4 MG Orally twice a day 1 capsule 12h May, 30 days Active Amitriptyline HCl 10 mg Orally Once a day at hs 2 tablet 30 days Active RESULTS No Results PROCEDURES Procedure Date Ordered Result Body Site [facility] 2018 INSTRUCTIONS MEDICATIONS ADMINISTERED No Known Medications MEDICAL [...]
--- OUTSIDE RECORDS SUMMARY | 2018-06-15 19:02 | XMS REPORT ---
Author Author ALEX HUTCHINSON [facility] Address [address] [place] [address] Care Team Providers Care Food Editor Name Role Phone ALEX HUTCHINSON Unavailable PROBLEMS Type Condition ICD9-CM Code BND42-JR Code Onset Dates Condition Status SNOMED Code Problem Arthritis of both knees M19.90 Active 342212944 Problem Insomnia due to medical condition G47.01 Active 808670364 Problem Pre-diabetes R73.03 Active 780123319 Problem Restless leg syndrome G25.81 Active 87521725 Problem Paresthesia of skin R20.2 Active 45391563 Problem Chronic seasonal allergic rhinitis, unspecified trigger J30.2 Active 168746797 Problem No diagnosis or condition on Industry I Z03.89 Active 5085435 Problem Morbid obesity E66.01 Active 035781630 Problem Idiopathic neuropathy G60.9 Active Problem Abnormal x-ray of cervical spine R93.7 Active 025149424 Problem Fibromyalgia M79.7 Active 52152846 Problem Long-term use of high-risk medication Z79.899 Active 507580675 Problem Heartburn R12 Active 28809758 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 51346302 Problem Depression F32.9 Active 17679777 Problem Vitamin D deficiency E55.9 Active 37684575 Problem Other chronic pain G89.29 Active 51692155 ALLERGIES No Information ENCOUNTERS Encounter Location Date Diagnosis [facility] [address] [facility] [id number] [address] May, [facility] [address], [place] [address] Mar, Vitamin D deficiency E55.9 [facility] [address] [id number], [place] [address] Mar, Weight loss counseling, encounter for Z71.3 ; Vitamin D deficiency E55.9 ; Dermatitis L30.9 ; Chronic seasonal allergic rhinitis, unspecified trigger J30.2 ; Heartburn R12 ; Restless leg syndrome G25.81 and BMI 50.0-59.9, adult Z68.43 [place] [id number] [place] [address] 61060- 0883 Mar, Cervicalgia M54.2 ; 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 ; Paresthesia of upper and lower extremities of both sides R20.2 ; Weight loss counseling, encounter for Z71.3 and BMI 50.0-59.9, adult Z68.43 [place] [address] [address] Jan, Encounter for weight loss counseling Z71.3 ; 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 ; Arthritis of both knees M19.90 and BMI 50.0-59.9 , adult Z68.43 [place] [address] [address]- 7242 Dec, Weight loss counseling, encounter for Z71.3 ; BMI 50.0-59.9 , adult Z68.43 ; 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 ; Abnormal x-ray of cervical spine R93.7 and Vitamin D deficiency E55.9 [place] [id number] [place] [address] 77837- 7467 Dec, Encounter for weight loss counseling Z71.3 ; Fibromyalgia M79.7 and BMI 50.0-59.9, adult Z68.43 [place] [id number] [place] [address] 38830- 0066 Nov, [place] [address] 92733- 0532 Nov, Morbid obesity E66.01 ; Paresthesia of upper and lower extremities of both sides R20.2 ; Hair loss L65.9 ; Fibromyalgia M79.7 and BMI 50.0-59.9, adult Z68.43 [place] [address] 58477- 3251 Nov, Vitamin D deficiency E55.9 [place] [id number] [place] [address] 59760- 6363 Nov, Arthritis of both knees M19.90 and Vitamin D deficiency E55.9 [place] [id number] [place] [address] 29756- 2004 Nov, Chronic seasonal allergic rhinitis, unspecified trigger J30.2 and Heartburn R12 [place] [id number] [place] [address] 43939- 1411 Nov, [place] [id number] [place] [address] 21623- 6015 Nov, Vitamin D deficiency E55.9 [place] [id number] [place] [address] 09218- 4330 October, Morbid obesity E66.01 ; Hemorrhoids, unspecified hemorrhoid type K64.9 ; Pre-diabetes R73.03 and BMI 50.0-59.9, adult Z68.43 [place] [id number] [place] [address] 22254- 7732 October, [place] [id number] [place] [address] 93760- 2221 October, [place] [id number] [place] [address] 34887- 4547 October, Left arm numbness R20.0 ; Paresthesia of skin R20.2 ; Anesthesia of skin R20.0 and BMI 50.0-59.9, adult Z68.43 [place] [id number] [place] [address] 91904- 8842 Sep, BMI 50.0-59.9, adult Z68.43 ; Fibromyalgia M79.7 ; Idiopathic neuropathy G60.9 ; Vitamin D deficiency E55.9 ; Chronic seasonal allergic rhinitis, unspecified trigger J30.2 and Long-term use of high-risk medication Z79.899 [place] [id number] [place] [address] 48720- 4731 Aug, Fibromyalgia M79.7 [place] [address] 14965- 1311 Aug, No diagnosis or condition on Industry I Z03.89 [place] [address] 28856- 3985 Aug, Chronic seasonal allergic rhinitis, unspecified trigger J30.2 ; Fibromyalgia M79.7 ; Heartburn R12 ; Pre-diabetes R73.03 ; Change of voice R49.9 and BMI 50.0-59.9, adult Z68.43 [place] [address] 77681- 3678 Aug, Fibromyalgia M79.7 [place] [address] 39715- 8088 May, Chronic seasonal allergic rhinitis, unspecified trigger J30.2 ; Vaginal itching L29.8 and Vaginal yeast infection B37.3 [place] [id number] [place] [address] 12349- 9808 May, Arthritis of both knees M19.90 [facility] [place] [id number] [place] [address] 30640 -4437 May, Herpes zoster without complication B02.9 and Vaginal epnny B37.3 [place] [address] 36667- 4632 Mar, [place] [address] 65555- 4518 Mar, Arthritis of both knees M19.90 [place] [address] 85117- 8385 Mar, Arthritis of both knees M19.90 ; Elevated serum creatinine R79.89 ; Fibromyalgia M79.7 ; Idiopathic neuropathy G60.9 ; Vitamin D deficiency E55.9 ; Pre-diabetes R73.03 and Insomnia due to medical condition G47.01 [place] [address], [place] [address] Mar, [place] [id number] [place] [address] 51046- 9778 Jan, [place] [id number] [place] [address] 78320- 9947 Jan, Pes planus of left foot M21.42 ; Plantar fasciitis of left foot M72.2 and Neuropathy G62.9 [place] [id number] [place] [address] 93353- 5093 Jan, Arthritis of both knees M19.90 ; Fibromyalgia M79.7 ; Idiopathic neuropathy G60.9 ; Vitamin D deficiency E55.9 ; Pre-diabetes R73.03 ; Insomnia due to medical condition G47.01 ; Bad odor of urine R82.90 and SI ( sacroiliac) pain M53.3 [place] [id number] [place] [address] 19588- 9597 Jan, [place] [id number] [place] [address] 37390- 0765 Jan, Elevated serum creatinine R79.89 [place] [id number] [place] [address] 15160- 7138 Dec, [place] [id number] [place] [address] 40913- 6066 Dec, Arthritis of both knees M19.90 ; Fibromyalgia M79.7 ; Idiopathic neuropathy G60.9 ; Vitamin D deficiency E55.9 and Pre-diabetes R73.03 [place] [address], [place] [address] 8333 Dec, Arthritis of both knees M19.90 [place] [id number] [place] [address] 23434- 4237 October, [place] [id number] [place] [address] 55162- 6289 October, [place] [id number] [place] [address] 22106- 1213 October, Fibromyalgia M79.7 [place] [address] 31959- 0590 October, Skin tag L91.8 ; Left foot pain M79.672 and Rash and nonspecific skin eruption R21 [place] [address] 08854- 2416 Aug, [place] [address] 90089- 3596 Aug, Arthritis of both knees M19.90 ; Fibromyalgia M79.7 ; Idiopathic neuropathy G60.9 ; Vitamin D deficiency E55.9 ; Morbid obesity due to excess calories E66.01 and History of prediabetes Z87.898 [facility] WALK IN [facility] [id number] [place] [address] 33039 -0844 Aug, Blood in ear canal, right H92.21 [place] [id number] [place] [address] 34049- 8473 Jul, [place] [address] 13656- 2418 Jul, Arthritis of both knees M19.90 ; Fibromyalgia M79.7 ; Idiopathic neuropathy G60.9 and Vitamin D deficiency E55.9 [place] [id number] [place] [address] 52099- 9058 Jul, Fibromyalgia M79.7 [place] [id number] [place] [address] 00502- 3661 May, Fibromyalgia M79.7 ; Idiopathic neuropathy G60.9 ; Vitamin D deficiency E55.9 ; Memory change R41.3 ; Xerostomia K11.7 and Heartburn R12 [place] [id number] [place] [address] 19385- 9248 May, Fibromyalgia M79.7 ; Idiopathic neuropathy G60.9 ; Vitamin D deficiency E55.9 and Memory change R41.3 [facility] [id number] [place] [address] 26016- 3185 May, [facility] [id number] [place] [address] 42189- 2295 Mar, [facility] [id number] [place] [address] 85895- 2596 Jan, [facility] [address] 37254- 1529 Jan, [facility] [id number] [place] [address] 25762- 4940 Jan, Dermatitis L30.9 ; Pain in right shoulder M25.511 ; Fibromyalgia M79.7 and H/O right knee surgery Z98.89 [facility] [id number] [place] [address] 50390- 7110 Dec, [facility] [id number] [place] [address] 31459- 6602 Dec, Middle ear effusion, right H65.91 ; Fibromyalgia M79.7 and Heartburn R12 [facility] [id number] [place] [address] 79569 -7472 Dec, Otalgia of right ear H92.01 and Middle ear effusion, right H65.91 [facility] [id number] [place] [address] 21133- 7571 Nov, Acute pain of right knee M25.561 [facility] [id number] [place] [address] 52508- 4219 Nov, [facility] [id number] [place] [address] 93648- 3397 Nov, Acute pain of right knee M25.561 [facility] [id number] [place] [address] 78678- 0061 October, Osteoarthritis of both knees, unspecified osteoarthritis type M17.0 [place] [address], [place] [address]- 3924 October, [place] [id number] [place] [address] 63257- 1732 Sep, [place] [id number] [place] [address] 87071- 3176 Sep, Fibromyalgia M79.7 ; Chronic fatigue R53.82 ; Sinusitis J32.9 ; Bronchiolitis J21.9 ; Weight gain R63.5 and Heartburn R12 [place] [id number] [place] [address] 93291- 0430 Sep, Mild hearing loss of right ear H91.91 and Tinnitus of right ear H93.11 [place] [address] [id number] [place] [address] 36496- 1679 Aug, [place] [id number] [place] [address] 81212- 3903 Aug, Fibromyalgia M79.7 and Depression F32.9 [place] [id number] [place] [address] 63288- 8371 Aug, [place] [id number] [place] [address] 94440- 8875 Jul, Fibromyalgia M79.7 ; 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 ; Vitamin D deficiency E55.9 ; Long-term use of high-risk medication Z79.899 ; Heartburn R12 ; Chronic fatigue, unspecified R53.82 and Tinnitus of right ear H93.11 [place] [address], [place] [address]- 3909 Mar, Fibromyalgia M79.7 ; 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 ; Vitamin D deficiency E55.9 ; Diarrhea R19.7 ; Long-term use of high- risk medication Z79.899 and Heartburn R12 [place] [address], [place] [address]- 5705 Mar, Fibromyalgia 729.1 ; Unspecified hereditary and idiopathic peripheral neuropathy 356.9 ; Unspecified sleep disturbance 780.50 ; Left ankle pain 719.47 and Insomnia 780.52 [facility] [id number] [place] [address] 85651- 4669 22 Mar, 2015 Unspecified episodic mood disorder 296.90 and Anxiety state , unspecified 300.00 [facility] [id number] [place] [address] 08751- 2651 17 Mar, 2015 Chondromalacia of right knee 717.7 [facility] [id number] [place] [address] 99782- 8663 Jan, [facility] [address] 45685- 6482 Dec, Left foot pain 729.5 [facility] [id number] [place] [address] 23089- 2613 Sep, [facility] [id number] [place] [address] 25159- 0737 Sep, [facility] [id number] [place] [address] 77438- 1707 17 Aug, 2014 [facility] [id number] [place] [address] 70740- 3302 17 Aug, 2014 [facility] [id number] [place] [address] 32781- 9668 16 Aug, 2014 [facility] [id number] [place] [address] 51885- 2543 16 Aug, 2014 [facility] [id number] [place] [address] 24808- 7822 11 Aug, 2014 [facility] [id number] [place] [address] 49298- 5156 Aug, [facility] [id number] [place] [address] 59657- 0018 11 Aug, 2014 [facility] [id number] [place] [address] 45680- 2806 Aug, [facility] [place] [facility] [address] [id number] [place] [address]- 8548 Aug, [facility] [place] [facility] [address] [id number] [place] [address]- 1492 Aug, [facility] [place] [facility] [address] [facility] [id number] [place] [address]- 2850 Aug, [facility] [place] [facility] [address] [id number] [place] [address]- 5021 Aug, [facility] [place] [facility] [address] [id number] [place] [address]- 2378 Aug, [facility] [place] [facility] [address] [facility] [id number] [place] [address]- 6253 Aug, [facility] [place] [facility] [address] [facility] [id number] [place] [address]- 8660 Aug, [facility] [place] [facility] [address] [facility] [id number] [place] [address]- 7304 Aug, [facility] [place] [facility] [address] [facility] [id number] [place] [address]- 5671 Jul, [facility] [place] [facility] [address] [facility] [id number] [place] [address]- 0611 Jul, [facility] [place] [facility] [address] [facility] [id number], [place] [address]- 5432 Jul, [facility] [place] [facility] [address] [facility] [id number], [place] [address]- 0772 Jul, [facility] [place] [facility] [address] [facility] [id number] [place] [address]- 8753 May, [facility] [place] [facility] [address] [facility] [id number] [place] [address]- 4310 May, [facility] [place] [facility] [address] [facility] [id number] [place] [address]- 0548 May, [facility] [place] [facility] [address] [id number] [place] [address]- 3921 Mar, [facility] [place] [facility] [address] [id number] [place] [address]- 4994 Mar, [facility] [place] [facility] [address] [id number] [place] [address]- 4720 Mar, [facility] [place] [facility] [address] [id number] [place] [address]- 8340 Mar, [facility] [place] [facility] [address] [id number] [place] [address]- 0273 Dec, [facility] [place] [facility] [address] [id number] [place] [address]- 9209 Dec, [facility] [place] [facility] [address] [id number] [place] [address]- 6720 Nov, [facility] [place] [facility] [address] [id number] [place] [address]- 5125 Nov, [facility] [place] [facility] [address] [id number] [place] [address]- 9279 Nov, [facility] [place] [facility] [address] [id number] [place] [address]- 9244 Nov, [facility] [place] [facility] [address] [id number] [place] [address]- 9113 Nov, [facility] [place] [facility] [address] [id number] [place] [address]- 4962 Nov, [facility] [place] [facility] [address] [id number] [place] [address]- 1409 October, [facility] [place] [facility] [address] [id number] [place] [address]- 7230 October, [facility] [place] [facility] [address] [id number] [place] [address]- 3548 October, [facility] [place] [facility] [address] [id number] [place] [address]- 7815 October, [facility] [place] [facility] [address] [id number] [place] [address]- 3119 October, [facility] [place] [facility] [address] [id number] [place] [address]- 8974 October, [facility] [place] [facility] [address] [id number] [place] 4751 October, [facility] [place] [facility] [address] [id number] [place] [address]- 6286 October, [facility] [place] [facility] [address] [id number] [place] [address]- 1401 October, [facility] [place] [facility] [address] [id number] [place] [address]- 7590 October, [facility] [place] [facility] [address] [id number] [place] [address]- 3676 October, [facility] [place] [facility] [address] [id number] [place] [address]- 4023 October, [facility] [place] [facility] [address] [id number] [place] [address]- 3338 October, [facility] [place] [facility] [address] [id number] [place] [address]- 8520 Sep, [facility] [place] [facility] [address] [id number] [place] [address]- 3982 Sep, [facility] [place] [facility] [address] [id number] [place] [address]- 7710 Aug, [facility] [place] [facility] [address] [id number] [place] [address]- 2545 Aug, [facility] [place] [facility] [address] [id number] [place] [address]- 9693 Aug, [facility] [place] [facility] [address] [id number] [place] [address]- 0200 Aug, [facility] [place] [facility] [address] [id number] [place] [address]- 3105 Aug, [facility] [place] [facility] [address] [id number] [place] [address]- 1981 Aug, [facility] [place] [facility] [address] [id number] [place] [address]- 9145 Aug, [facility] [place] [facility] [address] [id number] [place] [address]- 8489 Aug, [facility] [place] [facility] [address] [id number] [place] [address]- 1717 Aug, [facility] [place] [facility] [address] [id number] [place] [address]- 1523 Aug, [facility] [place] [facility] [address] [id number] [place] [address]- 2643 Aug, [facility] [place] [facility] [address] [facility] [id number] [place] [address]- 5366 Aug, [facility] [place] [facility] [address] [id number] [place] [address]- 0374 Jul, [facility] [place] [facility] [address] [id number] [place] [address]- 6334 Jul, [facility] [place] [facility] [address] [facility] [id number] [place] [address]- 4689 Jul, [facility] [place] [facility] [address] [id number] [place] [address]- 2183 Jul, [facility] [place] [facility] [address] [id number] [place] [address]- 2322 Mar, [facility] [place] [facility] [address] [id number] [place] [address]- 1701 Mar, [facility] [place] [facility] [address] [id number] [place] [address]- 8276 Jan, [facility] [place] [facility] [address] [id number] [place] [address]- 6975 Sep, [facility] [address] [id number] [place] [address]- 6836 14 Aug, 2012 [facility] [place] [facility] [address] [id number] [place] [address]- 2766 12 Aug, 2012 [facility] [address] [id number] [place] [address]- 7056 08 Aug, 2012 [facility] [address] [id number] [place] [address]- 7786 07 Aug, 2012 [facility] [address] [id number] [place] [address] Aug, [facility] [address] [id number] [place] [address] October, [facility] [address] [id number] [place] [address] October, [facility] [address] [id number] [place] [address] Sep, [facility] [address] [id number] [place] [address] Sep, [facility] [address] [id number] [place] [address] Sep, [facility] [address] [id number] [place] [address] Sep, [facility] [place] [facility] [address] [id number] [place] [address] 18 Sep, 2011 [facility] [place] [facility] [address] [id number] [place] [address] 11 Sep, 2011 [facility] [place] [facility] [address] [id number] [place] [address] 10 Sep, 2011 [facility] [place] [facility] [address] [id number] [place] [address] 09 Sep, 2011 [facility] [address] [place] [address] 07 Sep, 2011 [facility] [address] [place] [address] Sep, [facility] [address] [place] [address] Aug, [facility] [id number] [place] [address] 17 Aug, 2011 [facility] [id number] [place] [address] Aug, [facility] [id number] [place] [address] Aug, [facility] [id number] [place] [address] Jul, [facility] [id number] [place] [address] Jul, [facility] [id number] [place] [address] Jul, [facility] [id number] [place] [address] May, [facility] [address] [place] [address] May, [facility] [address] [place] [address] May, [facility] [id number] [place] [address] Jan, [facility] [id number] [place] [address] Dec, IMMUNIZATIONS No Known Immunizations SOCIAL HISTORY Never Assessed REASON FOR VISIT New Rx from lab PLAN OF CARE VITAL SIGNS MEDICATIONS Medication Instructions Dosage Frequency Start Date End Date Duration Status Cholecalciferol 88715 UNIT Orally once weekly 1 tablet 30 day(s) Active RESULTS No Results PROCEDURES No Known [...]
--- OUTSIDE RECORDS SUMMARY | 2018-06-15 19:03 | XMS REPORT ---
Author Author ALEX HUTCHINSON [facility] Address [address] [place] [address] Care Team Providers Care Customer Response Representative Name Role Phone ALEX HUTCHINSON Unavailable PROBLEMS Type Condition ICD9-CM Code URE19-TY Code Onset Dates Condition Status SNOMED Code Problem Other chronic pain G89.29 Active 91857703 Problem Pre-diabetes R73.03 Active 375818268 Problem Arthritis of both knees M19.90 Active 414920872 Problem Paresthesia of skin R20.2 Active 45605320 Problem Morbid obesity E66.01 Active 255606211 Problem No diagnosis or condition on [place] I Z03.89 Active 4384046 Problem Insomnia due to medical condition G47.01 Active 316150184 Problem Idiopathic neuropathy G60.9 Active Problem Chronic seasonal allergic rhinitis, unspecified trigger J30.2 Active 995962689 Problem Abnormal x-ray of cervical spine R93.7 Active 330594646 Problem Vitamin D deficiency E55.9 Active 61019980 Problem Heartburn R12 Active 72414183 Problem Fibromyalgia M79.7 Active 12733327 Problem Long-term use of high-risk medication Z79.899 Active 202671314 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 41294550 Problem Depression F32.9 Active 72950575 ALLERGIES Substance Reaction Event Type Date Status Neurontin Unknown Drug Allergy Jan, Active Naproxen Unknown Drug Allergy Jan, Active Lyrica Nausea, diarrhea, headaches Drug Allergy Jan, Active Effexor Unknown Drug Allergy Jan, Active Demerol Unknown Drug Allergy Jan, Active Cymbalta 30 Mg Capsule, Delayed Release(e.c.) Unknown Non Drug Allergy Jan, Active ENCOUNTERS Encounter Location Date Diagnosis [facility] [address] [facility] [id number], [place] [address] Mar, [facility] [id number] [place] [address] 51183- 5870 Jan, Encounter for weight loss counseling Z71.3 ; 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 ; Arthritis of both knees M19.90 and BMI 50.0-59.9 , adult Z68.43 [facility] [facility] [id number] [place] [address] 05549- 6141 Dec, Weight loss counseling, encounter for Z71.3 ; BMI 50.0-59.9 , adult Z68.43 ; 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 ; Abnormal x-ray of cervical spine R93.7 and Vitamin D deficiency E55.9 [place] [address] 8[address]27- 5525 Dec, Encounter for weight loss counseling Z71.3 ; Fibromyalgia M79.7 and BMI 50.0-59.9, adult Z68.43 [facility] [facility] [id number] [place] [address] 40114- 6948 Nov, [place] [address] 78468- 4147 Nov, Morbid obesity E66.01 ; Paresthesia of upper and lower extremities of both sides R20.2 ; Hair loss L65.9 ; Fibromyalgia M79.7 and BMI 50.0-59.9, adult Z68.43 [place] [id number] [place] [address] 96093- 4297 Nov, Vitamin D deficiency E55.9 [facility] [facility] [id number] [place] [address] 51009- 7061 Nov, Arthritis of both knees M19.90 and Vitamin D deficiency E55.9 [facility] [facility] [id number] [place] [address] 24320- 1212 Nov, Chronic seasonal allergic rhinitis, unspecified trigger J30.2 and Heartburn R12 [place] [id number] [place] [address] 47034- 3759 Nov, [place] [id number] [place] [address] 38677- 3338 Nov, Vitamin D deficiency E55.9 [place] [address] 25196- 2249 October, Morbid obesity E66.01 ; Hemorrhoids, unspecified hemorrhoid type K64.9 ; Pre-diabetes R73.03 and BMI 50.0-59.9, adult Z68.43 [place] [address] 64507- 3479 October, [place] [address] 42462- 4510 October, [place] [address] 39871- 1255 October, Left arm numbness R20.0 ; Paresthesia of skin R20.2 ; Anesthesia of skin R20.0 and BMI 50.0-59.9, adult Z68.43 [place] [id number] [place] [address] 41764- 7937 Sep, BMI 50.0-59.9, adult Z68.43 ; Fibromyalgia M79.7 ; Idiopathic neuropathy G60.9 ; Vitamin D deficiency E55.9 ; Chronic seasonal allergic rhinitis, unspecified trigger J30.2 and Long-term use of high-risk medication Z79.8[address] [place] [id number] [place] [address] 87981- 9703 Aug, Fibromyalgia M79.7 [place] [id number] [place] [address] 06561- 8764 Aug, No diagnosis or condition on [place] I Z03.[address] 93707- 5448 Aug, Chronic seasonal allergic rhinitis, unspecified trigger J30.2 ; Fibromyalgia M79.7 ; Heartburn R12 ; Pre-diabetes R73.03 ; Change of voice R49.9 and BMI 50.0-59.9, adult Z68.43 [place] [id number] [place] [address] 21791- 0470 Aug, Fibromyalgia M79.7 [place] [id number] [place] [address] 55470- 9850 May, Chronic seasonal allergic rhinitis, unspecified trigger J30.2 ; Vaginal itching L29.8 and Vaginal yeast infection B37.3 [place] [id number] [place] [address] 51984- 5110 May, Arthritis of both knees M19.90 [facility] [id number] [place] [address] 18589 -6542 May, Herpes zoster without complication B02.9 and Vaginal penny B37.3 [place] [id number] [place] [address] 42210- 1737 Mar, [place] [id number] [place] [address] 80708- 9297 Mar, Arthritis of both knees M19.90 [place] [id number] [place] [address] 44718- 9214 Mar, Arthritis of both knees M19.90 ; Elevated serum creatinine R79.89 ; Fibromyalgia M79.7 ; Idiopathic neuropathy G60.9 ; Vitamin D deficiency E55.9 ; Pre-diabetes R73.03 and Insomnia due to medical condition G47.01 [place] [id number] [place] [address] 71461- 0404 Mar, [place] [id number] [place] [address] 75473- 2384 Jan, [place] [id number] [place] [address] 25999- 1221 Jan, Pes planus of left foot M21.42 ; Plantar fasciitis of left foot M72.2 and Neuropathy G62.9 [place] [id number] [place] [address] 87351- 2743 Jan, Arthritis of both knees M19.90 ; Fibromyalgia M79.7 ; Idiopathic neuropathy G60.9 ; Vitamin D deficiency E55.9 ; Pre-diabetes R73.03 ; Insomnia due to medical condition G47.01 ; Bad odor of urine R82.90 and SI ( sacroiliac) pain M53.3 [facility] [id number] [place] [address] 69985- 9151 Jan, [facility] [id number] [place] [address] 35932- 4013 Jan, Elevated serum creatinine R79.89 [facility] [id number] [place] [address] 36101- 3120 Dec, [place] [id number] [place] [address] 51748- 6998 Dec, Arthritis of both knees M19.90 ; Fibromyalgia M79.7 ; Idiopathic neuropathy G60.9 ; Vitamin D deficiency E55.9 and Pre-diabetes R73.03 [facility] [id number] [place] [address] 93245- 2805 Dec, Arthritis of both knees M19.90 [facility] [id number] [place] [address] 85603- 3164 October, [facility] [id number] [place] [address] 18902- 9277 October, [facility] [id number] [place] [address] 04196- 6234 October, Fibromyalgia M79.7 [facility] [id number] [place] [address] 26818- 0029 October, Skin tag L91.8 ; Left foot pain M79.672 and Rash and nonspecific skin eruption R21 [facility] [id number] [place] [address] 16883- 5496 Aug, [facility] [id number] [place] [address] 64193- 1692 Aug, Arthritis of both knees M19.90 ; Fibromyalgia M79.7 ; Idiopathic neuropathy G60.9 ; Vitamin D deficiency E55.9 ; Morbid obesity due to excess calories E66.01 and History of prediabetes Z87.898 [facility] [id number] [place] [address] 05868 -5336 Aug, Blood in ear canal, right H92.21 [facility] [address] 78623- 8871 Jul, [place] [address] 51949- 0631 Jul, Arthritis of both knees M19.90 ; Fibromyalgia M79.7 ; Idiopathic neuropathy G60.9 and Vitamin D deficiency E55.9 [place] [id number] [place] [address] 32661- 8008 Jul, Fibromyalgia M79.7 [facility] [address] 72607- 1211 May, Fibromyalgia M79.7 ; Idiopathic neuropathy G60.9 ; Vitamin D deficiency E55.9 ; Memory change R41.3 ; Xerostomia K11.7 and Heartburn R12 [place] [id number] [place] [address] 01405- 4031 May, Fibromyalgia M79.7 ; Idiopathic neuropathy G60.9 ; Vitamin D deficiency E55.9 and Memory change R41.3 [place] [id number] [place] [address] 96642- 4097 May, [place] [id number] [place] [address] 31147- 4648 Mar, [place] [address] 82209- 5949 Jan, [place] [address] 42834- 2059 Jan, [place] [address] 59807- 9691 Jan, Dermatitis L30.9 ; Pain in right shoulder M25.511 ; Fibromyalgia M79.7 and H/O right knee surgery Z98.89 [facility] [id number] [place] [address] 27654- 6433 Dec, [facility] [address] 27891- 4605 Dec, Middle ear effusion, right H65.91 ; Fibromyalgia M79.7 and Heartburn R12 [facility] [address] 86700 -0773 Dec, Otalgia of right ear H92.01 and Middle ear effusion, right H65.91 [facility] [id number] [place] [address] 20318- 5724 Nov, Acute pain of right knee M25.561 [place] [address] 07496- 9065 Nov, [place] [address] 64057- 8381 Nov, Acute pain of right knee M25.561 [facility] [id number] [place] [address] 90803- 0776 October, Osteoarthritis of both knees, unspecified osteoarthritis type M17.0 [facility] [address] 96920- 0605 October, [place] [id number] [place] [address] 19165- 6968 Sep, [place] [address] 96247- 3661 Sep, Fibromyalgia M79.7 ; Chronic fatigue R53.82 ; Sinusitis J32.9 ; Bronchiolitis J21.9 ; Weight gain R63.5 and Heartburn R12 [facility] [address] 82298- 9426 Sep, Mild hearing loss of right ear H91.91 and Tinnitus of right ear H93.11 [place] [id number] [place] [address] 30707- 5665 Aug, [place] [id number] [place] [address] 89111- 5581 Aug, [place] [address] 10901- 5206 Aug, Fibromyalgia M79.7 and Depression F32.9 [place] [id number] [place] [address] 57343- 9297 Aug, [place] [id number] [place] [address] 61761- 9135 Jul, Fibromyalgia M79.7 ; 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 ; Vitamin D deficiency E55.9 ; Long-term use of high-risk medication Z79.899 ; Heartburn R12 ; Chronic fatigue, unspecified R53.82 and Tinnitus of right ear H93.11 [place] [id number] [place] [address] 92108- 1836 Mar, Fibromyalgia M79.7 ; 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 ; Vitamin D deficiency E55.9 ; Diarrhea R19.7 ; Long-term use of high- risk medication Z79.899 and Heartburn R12 [place] [id number] [place] [address] 24117- 1796 Mar, Fibromyalgia 729.1 ; Unspecified hereditary and idiopathic peripheral neuropathy 356.9 ; Unspecified sleep disturbance 780.50 ; Left ankle pain 719.47 and Insomnia 780.52 [place] [id number] [place] [address] 41143- 9515 Mar, Unspecified episodic mood disorder 296.90 and Anxiety state , unspecified 300.00 [place] [id number] [place] [address] 43306- 5111 Mar, Chondromalacia of right knee 717.7 [facility] [address] [id number] [place] [address]- 6930 Jan, [facility] [address] [id number] [place] [address]- 5125 Dec, Left foot pain 729.5 [facility] [place] [facility] [address] [facility] [id number] [place] [address]- 7696 14 Sep, 2014 [facility] [place] [facility] [address] [id number] [place] [address]- 5081 13 Sep, 2014 [facility] [place] [facility] [address] [id number] [place] [address]- 5916 17 Aug, 2014 [facility] [place] [facility] [address] [facility] [id number] [place] [address]- 3295 17 Aug, 2014 [facility] [place] [facility] [address] [facility] [id number] [place] [address]- 7973 16 Aug, 2014 [facility] [place] [facility] [address] [facility] [id number] [place] [address]- 6299 16 Aug, 2014 [facility] [place] [facility] [address] [id number] [place] [address]- 5116 11 Aug, 2014 [facility] [place] [facility] [address] [facility] [id number] [place] [address]- 7331 11 Aug, 2014 [facility] [place] [facility] [address] [facility] [id number], [place] [address]- 1857 11 Aug, 2014 [facility] [place] [facility] [address] [id number], [place] [address]- 9629 11 Aug, 2014 [facility] [place] [facility] [address] [id number] [place] [address]- 1400 10 Aug, 2014 [facility] [place] [facility] [address] [facility] [id number] [place] 1589 10 Aug, 2014 [facility] [place] [facility] [address] [facility] [id number] [place] [address]- 8968 05 Aug, 2014 [facility] [place] [facility] [address] [facility] [id number] [place] [address]- 0383 Aug, [facility] [place] [facility] [address] [id number] [place] [address]- 9527 Aug, 2014 [facility] [place] [facility] [address] [id number] [place] [address]- 5827 Aug, 2014 [facility] [place] [facility] [address] [id number] [place] [address]- 4881 Aug, 2014 [facility] [place] [facility] [address] [id number] [place] [address]- 6358 Aug, [facility] [place] [facility] [address] [id number] [place] [address]- 8193 Jul, [facility] [place] [facility] [address] [facility] [id number] [place] [address]- 5515 Jul, [facility] [place] [facility] [address] [facility] [id number] [place] [address]- 1370 Jul, [facility] [place] [facility] [address] [id number] [place] [address]- 4809 Jul, [facility] [place] [facility] [address] [facility] [id number] [place] [address]- 7955 May, [facility] [place] [facility] [address] [facility] [id number] [place] [address]- 3031 May, [facility] [place] [facility] [address] [id number] [place] [address]- 1060 May, [facility] [place] [facility] [address] [id number] [place] [address]- 5190 Mar, [facility] [place] [facility] [address] [id number] [place] [address]- 8436 Mar, [facility] [place] [facility] [address] [facility] [id number] [place] [address]- 3604 Mar, [facility] [place] [facility] [address] [facility] [id number] [place] [address]- 6160 Mar, [facility] [place] [facility] [address] [id number] [place] [address]- 2836 Dec, [facility] [place] [facility] [address] [id number] [place] [address]- 3249 Dec, [facility] [place] [facility] [address] [id number] [place] [address]- 5478 Nov, [facility] [place] [facility] [address] [id number] [place] [address]- 8417 Nov, [facility] [place] [facility] [address] [id number] [place] [address]- 7396 Nov, [facility] [place] [facility] [address] [id number] [place] [address]- 6908 Nov, [facility] [place] [facility] [address] [id number] [place] [address]- 3395 Nov, [facility] [place] [facility] [address] [id number] [place] [address]- 3751 Nov, [facility] [place] [facility] [address] [id number] [place] [address]- 2562 October, [facility] [place] [facility] [address] [id number] [place] [address]- 4437 October, [facility] [place] [facility] [address] [id number] [place] [address]- 6294 October, [facility] [place] [facility] [address] [id number] [place] [address]- 2200 October, [facility] [place] [facility] [address] [id number] [place] [address]- 5197 October, [facility] [place] [facility] [address] [id number] [place] [address]- 7620 October, [facility] [place] [facility] [address] [id number] [place] [address]- 3743 October, [facility] [place] [facility] [address] [id number] [place] [address]- 0879 October, [facility] [place] [facility] [address] [id number] [place] [address]- 6566 October, [facility] [place] [facility] [address] [id number] [place] 1169 October, [facility] [place] [facility] [address] [id number] [place] [address]- 5724 October, [facility] [place] [facility] [address] [id number] [place] [address]- 1229 October, [facility] [place] [facility] [address] [id number] [place] [address]- 7961 October, [facility] [place] [facility] [address] [id number] [place] [address]- 1168 Sep, [facility] [place] [facility] [address] [id number] [place] [address]- 1371 Sep, [facility] [place] [facility] [address] [id number] [place] [address]- 2976 Aug, [facility] [place] [facility] [address] [id number] [place] [address]- 9078 Aug, [facility] [place] [facility] [address] [id number] [place] [address]- 6863 Aug, [facility] [place] [facility] [address] [id number] [place] [address]- 3475 Aug, [facility] [place] [facility] [address] [id number] [place] [address]- 8575 Aug, [facility] [place] [facility] [address] [id number] [place] [address]- 3014 Aug, [facility] [place] [facility] [address] [id number] [place] 3597 Aug, [facility] [place] [facility] [address] [id number] [place] [address]- 3997 Aug, [facility] [place] [facility] [address] [id number] [place] [address]- 3780 Aug, [facility] [place] [facility] [address] [id number] [place] [address]- 4845 Aug, [facility] [place] [facility] [address] [id number] [place] [address]- 6066 Aug, [facility] [place] [facility] [address] [id number] [place] [address]- 2400 Aug, [facility] [place] [facility] [address] [id number] [place] [address]- 1621 Jul, [facility] [place] [facility] [address] [id number] [place] [address]- 7524 Jul, [facility] [place] [facility] [address] [id number] [place] [address]- 6370 Jul, [facility] [place] [facility] [address] [id number] [place] [address]- 0980 Jul, [facility] [place] [facility] [address] [id number] [place] [address]- 6190 Mar, [facility] [place] [facility] [address] [id number] [place] [address]- 4267 Mar, [facility] [place] [facility] [address] [id number] [place] [address]- 4625 Jan, [facility] [place] [facility] [address] [id number] [place] [address]- 1249 Sep, [facility] [place] [facility] [address] [id number] [place] [address]- 1429 Aug, [facility] [place] [facility] [address] [id number] [place] [address]- 1861 Aug, [facility] [place] [facility] [address] [id number] [place] [address]- 0619 Aug, [facility] [place] [facility] [address] [id number] [place] [address]- 5714 07 Aug, 2012 [facility] [address] [id number] [place] [address]- 3564 05 Aug, 2012 [facility] [address] [id number] [place] [address]- 3952 October, [facility] [address] [id number] [place] [address]- 1944 October, [facility] [address] [id number] [place] [address]- 0600 Sep, [facility] [address] [id number] [place] [address]- 0705 Sep, [facility] [address] [id number] [place] [address]- 7670 Sep, [facility] [address] [id number] [place] [address] Sep, [facility] [address] [id number] [place] [address] 18 Sep, 2011 [facility] [address] [id number] [place] [address] Sep, [facility] [address] [id number] [place] [address] Sep, [facility] [address] [id number] [place] [address] Sep, [facility] [place] [facility] [address] [id number] [place] [address] Sep, [facility] [place] [facility] [address] [id number] [place] [address] 06 Sep, 2011 [facility] [place] [facility] [address] [id number] [place] [address] Aug, [facility] [address] [id number] [place] [address] 17 Aug, 2011 [facility] [address] [facility] [id number], [place] [address] Aug, [facility] [address] [id number], [place] [address] Aug, [facility] [address] [id number], [place] [address] Jul, [facility] [id number], [place] [address] Jul, [facility] [address] [id number], [place] [address] Jul, [facility] [id number], [place] [address] May, [facility] [id number], [place] [address] May, [facility] [id number], [place] [address] May, [facility] [address] [id number], [place] [address] Jan, [facility] [address] [id number], [place] [address] Dec, IMMUNIZATIONS No Known Immunizations SOCIAL HISTORY Never Assessed REASON FOR VISIT Weight loss, Jguison. GENTILE PLAN OF CARE Activity Details Follow Up 4 Weeks Reason:wt loss VITAL SIGNS Height 68 in 2018-02-20 Weight 338.8 lbs 2018-02-20 Temperature 98.6 degrees Fahrenheit 2018-02-20 Heart Rate 84 bpm 2018-02-20 Respiratory Rate 18 2018-02-20 BMI 51.51 kg/m2 2018-02-20 Blood pressure systolic 138 mmHg 2018-02-20 Blood pressure diastolic 78 mmHg 2018-02-20 MEDICATIONS Medication Instructions Dosage Frequency Start Date End Date Duration Status Pilocarpine HCl 5 MG Orally Three times a day 1 tablet 8h Active Amitriptyline HCl 10 mg Orally Once a day at hs 2 tablet 30 days Active Tizanidine HCl 4 MG Orally twice a day 1 capsule 12h May, 30 days Active Wheelchair - xtra large Jul, Active Omeprazole 40 mg Orally Once a day 1 capsule 24h 30 days Active Hydrocodone-Acetaminophen 7.5-325 MG Orally daily prn 1/2-1 tablet Sep, Active Fluticasone Propionate 50 MCG/ACT Nasally Once a day 1 spray in each nostril 24h Active Cetirizine HCl 10 mg Orally Once a day 1 tablet 24h 30 days Active RESULTS No Results PROCEDURES No Known [...]
--- OUTSIDE RECORDS SUMMARY | 2018-06-15 19:03 | XMS REPORT ---
Author Author ALEX HUTCHINSON [facility] Address [address] [place] [address] Care Team Providers Care Rac Specialist Name Role Phone ALEX HUTCHINSON Unavailable PROBLEMS ALLERGIES ENCOUNTERS IMMUNIZATIONS No Known Immunizations SOCIAL HISTORY No smoking Hx information available REASON FOR VISIT PLAN OF CARE VITAL SIGNS MEDICATIONS RESULTS No Results PROCEDURES No Known procedures INSTRUCTIONS MEDICATIONS ADMINISTERED No Known Medications MEDICAL (GENERAL) HISTORY
--- OUTSIDE RECORDS SUMMARY | 2018-06-15 19:04 | XMS REPORT ---
Author Author ALEX HUTCHINSON [facility] Address [address] [place] [address] Care Team Providers Care Transportation Manager Name Role Phone ALEX HUTCHINSON Unavailable PROBLEMS Type Condition ICD9-CM Code CVP02-OK Code Onset Dates Condition Status SNOMED Code Problem Other chronic pain G89.29 Active 72765384 Problem Pre-diabetes R73.03 Active 998147300 Problem Arthritis of both knees M19.90 Active 348068823 Problem Paresthesia of skin R20.2 Active 95388827 Problem Morbid obesity E66.01 Active 743072876 Problem No diagnosis or condition on [place] I Z03.89 Active 9965703 Problem Insomnia due to medical condition G47.01 Active 298597737 Problem Idiopathic neuropathy G60.9 Active Problem Chronic seasonal allergic rhinitis, unspecified trigger J30.2 Active 014983337 Problem Abnormal x-ray of cervical spine R93.7 Active 876578465 Problem Vitamin D deficiency E55.9 Active 95932769 Problem Heartburn R12 Active 31548664 Problem Fibromyalgia M79.7 Active 84253094 Problem Long-term use of high-risk medication Z79.899 Active 207592830 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 01227397 Problem Depression F32.9 Active 74143099 ALLERGIES Substance Reaction Event Type Date Status Neurontin Unknown Drug Allergy Dec, Active Naproxen Unknown Drug Allergy Dec, Active Lyrica Nausea, diarrhea, headaches Drug Allergy Dec, Active Effexor Unknown Drug Allergy Dec, Active Demerol Unknown Drug Allergy Dec, Active Cymbalta 30 Mg Capsule, Delayed Release(e.c.) Unknown Non Drug Allergy Dec, Active ENCOUNTERS Encounter Location Date Diagnosis [facility] [address] [facility] [id number] [address] Mar, [facility] [id number] [place] [address] 76616- 6386 Jan, Encounter for weight loss counseling Z71.3 ; 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 ; Arthritis of both knees M19.90 and BMI 50.0-59.9 , adult Z68.43 [facility] [id number] [place] [address] 45663- 3982 Dec, Weight loss counseling, encounter for Z71.3 ; BMI 50.0-59.9 , adult Z68.43 ; 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 ; Abnormal x-ray of cervical spine R93.7 and Vitamin D deficiency E55.9 [facility] [address] [address]30- 1056 Dec, Encounter for weight loss counseling Z71.3 ; Fibromyalgia M79.7 and BMI 50.0-59.9, adult Z68.43 [facility] [id number] [place] [address] 00514- 8516 Nov, [facility] [address] 49004- 2960 Nov, Morbid obesity E66.01 ; Paresthesia of upper and lower extremities of both sides R20.2 ; Hair loss L65.9 ; Fibromyalgia M79.7 and BMI 50.0-59.9, adult Z68.43 [facility] [id number] [place] [address] 96128- 6489 Nov, Vitamin D deficiency E55.9 [facility] [id number] [place] [address] 26238- 8597 Nov, Arthritis of both knees M19.90 and Vitamin D deficiency E55.9 [facility] [id number] [place] [address] 53430- 1929 Nov, Chronic seasonal allergic rhinitis, unspecified trigger J30.2 and Heartburn R12 [facility] [id number] [place] [address] 60733- 2177 Nov, [facility] [id number] [place] [address] 06193- 2020 Nov, Vitamin D deficiency E55.9 [facility] [address] 53252- 5192 October, Morbid obesity E66.01 ; Hemorrhoids, unspecified hemorrhoid type K64.9 ; Pre-diabetes R73.03 and BMI 50.0-59.9, adult Z68.43 [facility] [address] 13779- 2120 October, [facility] [address] 08395- 4260 October, [facility] [address] 94215- 2789 October, Left arm numbness R20.0 ; Paresthesia of skin R20.2 ; Anesthesia of skin R20.0 and BMI 50.0-59.9, adult Z68.43 [facility] [id number] [place] [address] 84431- 5175 Sep, BMI 50.0-59.9, adult Z68.43 ; Fibromyalgia M79.7 ; Idiopathic neuropathy G60.9 ; Vitamin D deficiency E55.9 ; Chronic seasonal allergic rhinitis, unspecified trigger J30.2 and Long-term use of high-risk medication Z79.899 [id number] [place] [address] 53371- 8430 Aug, Fibromyalgia M79.7 [facility] [id number] [place] [address] 38279- 8864 Aug, No diagnosis or condition on [place] I Z03.[address] 13532- 5776 Aug, Chronic seasonal allergic rhinitis, unspecified trigger J30.2 ; Fibromyalgia M79.7 ; Heartburn R12 ; Pre-diabetes R73.03 ; Change of voice R49.9 and BMI 50.0-59.9, adult Z68.43 [facility] [id number] [place] [address] 77167- 8120 Aug, Fibromyalgia M79.7 [facility] [id number] [place] [address] 72062- 7424 May, Chronic seasonal allergic rhinitis, unspecified trigger J30.2 ; Vaginal itching L29.8 and Vaginal yeast infection B37.3 [facility] [id number] [place] [address] 17154- 6675 May, Arthritis of both knees M19.90 [facility] [id number] [place] [address] 91253 -3437 May, Herpes zoster without complication B02.9 and Vaginal penny B37.3 [facility] [id number] [place] [address] 03091- 4882 Mar, [facility] [id number] [place] [address] 91301- 9031 Mar, Arthritis of both knees M19.90 [facility] [id number] [place] [address] 82329- 8681 Mar, Arthritis of both knees M19.90 ; Elevated serum creatinine R79.89 ; Fibromyalgia M79.7 ; Idiopathic neuropathy G60.9 ; Vitamin D deficiency E55.9 ; Pre-diabetes R73.03 and Insomnia due to medical condition G47.01 [facility] [id number] [place] [address] 02864- 5683 Mar, [facility] [id number] [place] [address] 38644- 6299 Jan, [facility] [id number] [place] [address] 68806- 0908 Jan, Pes planus of left foot M21.42 ; Plantar fasciitis of left foot M72.2 and Neuropathy G62.9 [facility] [id number] [place] [address] 25020- 8464 Jan, Arthritis of both knees M19.90 ; Fibromyalgia M79.7 ; Idiopathic neuropathy G60.9 ; Vitamin D deficiency E55.9 ; Pre-diabetes R73.03 ; Insomnia due to medical condition G47.01 ; Bad odor of urine R82.90 and SI ( sacroiliac) pain M53.3 [facility] [id number] [place] [address] 36588- 7655 Jan, [facility] [id number] [place] [address] 75970- 8639 Jan, Elevated serum creatinine R79.89 [facility] [id number] [place] [address] 23374- 5129 Dec, [facility] [id number] [place] [address] 91023- 8230 Dec, Arthritis of both knees M19.90 ; Fibromyalgia M79.7 ; Idiopathic neuropathy G60.9 ; Vitamin D deficiency E55.9 and Pre-diabetes R73.03 [facility] [id number] [place] [address] 71553- 5820 Dec, Arthritis of both knees M19.90 [facility] [id number] [place] [address] 92452- 9854 October, [facility] [id number] [place] [address] 26058- 6370 October, [facility] [id number] [place] [address] 14756- 6577 October, Fibromyalgia M79.7 [facility] [id number] [place] [address] 78930- 3815 October, Skin tag L91.8 ; Left foot pain M79.672 and Rash and nonspecific skin eruption R21 [facility] [id number] [place] [address] 63931- 2234 Aug, [facility] [id number] [place] [address] 17863- 0689 Aug, Arthritis of both knees M19.90 ; Fibromyalgia M79.7 ; Idiopathic neuropathy G60.9 ; Vitamin D deficiency E55.9 ; Morbid obesity due to excess calories E66.01 and History of prediabetes Z87.898 [facility] [id number] [place] [address] 56940 -1571 Aug, Blood in ear canal, right H92.21 [facility] [address] 34638- 0001 Jul, [facility] [address] 94002- 3460 Jul, Arthritis of both knees M19.90 ; Fibromyalgia M79.7 ; Idiopathic neuropathy G60.9 and Vitamin D deficiency E55.9 [facility] [id number] [place] [address] 78841- 8330 Jul, Fibromyalgia M79.7 [facility] [address] 45291- 2228 May, Fibromyalgia M79.7 ; Idiopathic neuropathy G60.9 ; Vitamin D deficiency E55.9 ; Memory change R41.3 ; Xerostomia K11.7 and Heartburn R12 [facility] [id number] [place] [address] 68723- 5321 May, Fibromyalgia M79.7 ; Idiopathic neuropathy G60.9 ; Vitamin D deficiency E55.9 and Memory change R41.3 [facility] [id number] [place] [address] 47734- 2462 May, [facility] [id number] [place] [address] 30289- 0560 Mar, [facility] [address] 31653- 5522 Jan, [facility] [address] 61819- 9854 Jan, [facility] [address] 72472- 9926 Jan, Dermatitis L30.9 ; Pain in right shoulder M25.511 ; Fibromyalgia M79.7 and H/O right knee surgery Z98.89 [facility] [id number] [place] [address] 37056- 7879 Dec, [facility] [address] 66209- 8434 Dec, Middle ear effusion, right H65.91 ; Fibromyalgia M79.7 and Heartburn R12 [facility] [address] 68049 -9287 Dec, Otalgia of right ear H92.01 and Middle ear effusion, right H65.91 [facility] [id number] [place] [address] 36024- 4195 Nov, Acute pain of right knee M25.561 [facility] [address] 90669- 2303 Nov, [facility] [address] 12970- 2325 Nov, Acute pain of right knee M25.561 [facility] [id number] [place] [address] 64130- 2654 October, Osteoarthritis of both knees, unspecified osteoarthritis type M17.0 [facility] [address] 59594- 3491 October, [facility] [id number] [place] [address] 00984- 3925 Sep, [facility] [address] 20319- 0822 Sep, Fibromyalgia M79.7 ; Chronic fatigue R53.82 ; Sinusitis J32.9 ; Bronchiolitis J21.9 ; Weight gain R63.5 and Heartburn R12 [facility] [address] 42317- 2210 Sep, Mild hearing loss of right ear H91.91 and Tinnitus of right ear H93.11 [facility] [id number] [place] [address] 23919- 1721 Aug, [facility] [id number] [place] [address] 00360- 9221 Aug, [facility] [address] 52861- 2553 Aug, Fibromyalgia M79.7 and Depression F32.9 [facility] [id number] [place] [address] 47538- 5902 Aug, [facility] [id number] [place] [address] 41438- 9189 Jul, Fibromyalgia M79.7 ; 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 ; Vitamin D deficiency E55.9 ; Long-term use of high-risk medication Z79.899 ; Heartburn R12 ; Chronic fatigue, unspecified R53.82 and Tinnitus of right ear H93.11 [facility] [id number] [place] [address] 82028- 6991 Mar, Fibromyalgia M79.7 ; 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 ; Vitamin D deficiency E55.9 ; Diarrhea R19.7 ; Long-term use of high- risk medication Z79.899 and Heartburn R12 [facility] [id number] [place] [address] 02672- 7966 Mar, Fibromyalgia 729.1 ; Unspecified hereditary and idiopathic peripheral neuropathy 356.9 ; Unspecified sleep disturbance 780.50 ; Left ankle pain 719.47 and Insomnia 780.52 [facility] [id number] [place] [address] 49930- 5387 Mar, Unspecified episodic mood disorder 296.90 and Anxiety state , unspecified 300.00 [facility] [id number] [place] [address] 71809- 5855 Mar, Chondromalacia of right knee 717.7 [facility] [address] [id number] [place] [address]- 7643 Jan, [facility] [address] [id number] [place] [address]- 2445 Dec, Left foot pain 729.5 [facility] [place] [facility] [address] [facility] [id number] [place] [address]- 7346 14 Sep, 2014 [facility] [place] [facility] [address] [id number] [place] [address]- 8980 13 Sep, 2014 [facility] [place] [facility] [address] [id number] [place] [address]- 0690 17 Aug, 2014 [facility] [place] [facility] [address] [facility] [id number] [place] [address]- 0364 17 Aug, 2014 [facility] [place] [facility] [address] [facility] [id number] [place] [address]- 7912 16 Aug, 2014 [facility] [place] [facility] [address] [facility] [id number] [place] [address]- 0246 16 Aug, 2014 [facility] [place] [facility] [address] [id number] [place] [address]- 4950 11 Aug, 2014 [facility] [place] [facility] [address] [facility] [id number] [place] [address]- 5730 11 Aug, 2014 [facility] [place] [facility] [address] [facility] [id number] [place] [address]- 7952 11 Aug, 2014 [facility] [place] [facility] [address] [id number] [place] [address]- 2290 11 Aug, 2014 [facility] [place] [facility] [address] [id number] [place] [address]- 9831 10 Aug, 2014 [facility] [place] [facility] [address] [facility] [id number] [place]- 2151 10 Aug, 2014 [facility] [place] [facility] [address] [facility] [id number] [place] [address]- 2198 05 Aug, 2014 [facility] [place] [facility] [address] [facility] [id number] [place] [address]- 4904 Aug, [facility] [place] [facility] [address] [id number] [place] [address]- 8223 Aug, 2014 [facility] [place] [facility] [address] [id number] [place] [address]- 5466 Aug, 2014 [facility] [place] [facility] [address] [id number] [place] [address]- 4586 Aug, 2014 [facility] [place] [facility] [address] [id number] [place] [address]- 8574 Aug, [facility] [place] [facility] [address] [id number] [place] [address]- 8198 Jul, [facility] [place] [facility] [address] [facility] [id number] [place] [address]- 2180 Jul, [facility] [place] [facility] [address] [facility] [id number] [place] [address]- 6772 Jul, [facility] [place] [facility] [address] [id number] [place] [address]- 6207 Jul, [facility] [place] [facility] [address] [facility] [id number] [place] [address]- 6744 May, [facility] [place] [facility] [address] [facility] [id number] [place] [address]- 7394 May, [facility] [place] [facility] [address] [id number] [place] [address]- 4825 May, [facility] [place] [facility] [address] [id number] [place] [address]- 8774 Mar, [facility] [place] [facility] [address] [id number] [place] [address]- 6597 Mar, [facility] [place] [facility] [address] [facility] [id number] [place] [address]- 8522 Mar, [facility] [place] [facility] [address] [facility] [id number] [place] [address]- 6702 Mar, [facility] [place] [facility] [address] [id number] [place] [address]- 1351 Dec, [facility] [place] [facility] [address] [id number] [place] [address]- 1796 Dec, [facility] [place] [facility] [address] [id number] [place] [address]- 1469 Nov, [facility] [place] [facility] [address] [id number] [place] [address]- 6923 Nov, [facility] [place] [facility] [address] [id number] [place] [address]- 0960 Nov, [facility] [place] [facility] [address] [id number] [place] [address]- 5893 Nov, [facility] [place] [facility] [address] [id number] [place] [address]- 4803 Nov, [facility] [place] [facility] [address] [id number] [place] [address]- 5694 Nov, [facility] [place] [facility] [address] [id number] [place] [address]- 1542 October, [facility] [place] [facility] [address] [id number] [place] [address]- 8947 October, [facility] [place] [facility] [address] [id number] [place] [address]- 7689 October, [facility] [place] [facility] [address] [id number] [place] [address]- 7351 October, [facility] [place] [facility] [address] [id number] [place] [address]- 4604 October, [facility] [place] [facility] [address] [id number] [place] [address]- 7989 October, [facility] [place] [facility] [address] [id number] [place] [address]- 1666 October, [facility] [place] [facility] [address] [id number] [place] [address]- 1322 October, [facility] [place] [facility] [address] [id number] [place] [address]- 3432 October, [facility] [place] [facility] [address] [id number] [place] 0718 October, [facility] [place] [facility] [address] [id number] [place] [address]- 3534 October, [facility] [place] [facility] [address] [id number] [place] [address]- 1904 October, [facility] [place] [facility] [address] [id number] [place] [address]- 7403 October, [facility] [place] [facility] [address] [id number] [place] [address]- 6174 Sep, [facility] [place] [facility] [address] [id number] [place] [address]- 5198 Sep, [facility] [place] [facility] [address] [id number] [place] [address]- 1433 Aug, [facility] [place] [facility] [address] [id number] [place] [address]- 9781 Aug, [facility] [place] [facility] [address] [id number] [place] [address]- 2430 Aug, [facility] [place] [facility] [address] [id number] [place] [address]- 2395 Aug, [facility] [place] [facility] [address] [id number] [place] [address]- 1643 Aug, [facility] [place] [facility] [address] [id number] [place] [address]- 8456 Aug, [facility] [place] [facility] [address] [id number] [place] 3612 Aug, [facility] [place] [facility] [address] [id number] [place] [address]- 7267 Aug, [facility] [place] [facility] [address] [id number] [place] [address]- 7379 Aug, [facility] [place] [facility] [address] [id number] [place] [address]- 5570 Aug, [facility] [place] [facility] [address] [id number] [place] [address]- 2336 Aug, [facility] [place] [facility] [address] [id number] [place] [address]- 7832 Aug, [facility] [place] [facility] [address] [id number] [place] [address]- 8184 Jul, [facility] [place] [facility] [address] [id number] [place] [address]- 5262 Jul, [facility] [place] [facility] [address] [id number] [place] [address]- 4718 Jul, [facility] [place] [facility] [address] [id number] [place] [address]- 2145 Jul, [facility] [place] [facility] [address] [id number] [place] [address]- 5803 Mar, [facility] [place] [facility] [address] [id number] [place] [address]- 4035 Mar, [facility] [place] [facility] [address] [id number] [place] [address]- 8502 Jan, [facility] [place] [facility] [address] [id number] [place] [address]- 6397 Sep, [facility] [place] [facility] [address] [id number] [place] [address]- 3683 Aug, [facility] [place] [facility] [address] [id number] [place] [address] Aug, [facility] [place] [facility] [address] [id number] [place] [address] Aug, [facility] [place] [facility] [address] [id number] [place] [address] 07 Aug, 2012 [facility] [address] [id number] [place] [address] 05 Aug, 2012 [facility] [address] [id number] [place] [address] October, [facility] [address] [id number] [place] [address] October, [facility] [address] [id number] [place] [address] Sep, [facility] [address] [id number] [place] [address] Sep, [facility] [address] [id number] [place] [address] Sep, [facility] [address] [id number] [place] [address] Sep, [facility] [address] [id number] [place] [address] 18 Sep, 2011 [facility] [address] [id number] [place] [address] Sep, [facility] [address] [id number] [place] [address] Sep, [facility] [address] [id number] [place] [address] Sep, [facility] [place] [facility] [address] [id number] [place] [address] Sep, [facility] [place] [facility] [address] [id number] [place] [address] 06 Sep, 2011 [facility] [place] [facility] [address] [id number] [place] [address] Aug, [facility] [address] [id number] [place] [address] 17 Aug, 2011 [facility] [address] [facility] [id number] [address] Aug, [facility] [address] [id number] [address] Aug, [facility] [address] [id number] [address] Jul, [facility] [id number] [address] Jul, [facility] [id number] [address] Jul, [facility] [id number] [address] May, [facility] [id number] [address] May, [facility] [id number] [address] May, [facility] [address] [id number] [address] Jan, [facility] [address] [id number] [address] Dec, IMMUNIZATIONS No Known Immunizations SOCIAL HISTORY Never Assessed REASON FOR VISIT Weight Loss. ISRAEL Flores, Needs an order for PT and new medication for Vitamin D , the one she has makes her ill. PLAN OF CARE Activity Details Follow Up 4 Weeks Reason:wt loss VITAL SIGNS Height 68 in 2018-01-20 Weight 335.2 lbs 2018-01-20 Temperature 97.8 degrees Fahrenheit 2018-01-20 Heart Rate 95 bpm 2018-01-20 Respiratory Rate 22 2018-01-20 Oximetry 98 % 2018-01-20 BMI 50.96 kg/m2 2018-01-20 Blood pressure systolic 126 mmHg 2018-01-20 Blood pressure diastolic 78 mmHg 2018-01-20 MEDICATIONS Medication Instructions Dosage Frequency Start Date End Date Duration Status Wheelchair - xtra large Jul, Active Hydrocodone-Acetaminophen 7.5-325 MG Orally daily prn 1/2-1 tablet Sep, Active Cetirizine HCl 10 mg Orally Once a day 1 tablet 24h 30 days Active Amitriptyline HCl 10 mg Orally Once a day at hs 1 tablet 28 Active Pilocarpine HCl 5 MG Orally Three times a day 1 tablet 8h Active Cholecalciferol 58226 UNIT Orally twice weekly 1 capsule Dec, Jan, 12 Weeks Active Fluticasone Propionate 50 MCG/ACT Nasally Once a day 1 spray in each nostril 24h Active Omeprazole 40 mg Orally Once a day 1 capsule 24h 30 days Active RESULTS No Results [...]
--- OUTSIDE RECORDS SUMMARY | 2018-06-15 19:04 | XMS REPORT ---
Author Author ALEX HUTCHINSON [facility] Address [address] [place] [address] Care Team Providers Care Director Operations Name Role Phone ALEX HUTCHINSON Unavailable PROBLEMS Type Condition ICD9-CM Code NHS43-BP Code Onset Dates Condition Status SNOMED Code Problem Other chronic pain G89.29 Active 31012855 Problem Pre-diabetes R73.03 Active 335179403 Problem Arthritis of both knees M19.90 Active 904782710 Problem Paresthesia of skin R20.2 Active 59505402 Problem Morbid obesity E66.01 Active 945566145 Problem No diagnosis or condition on [place] I Z03.89 Active 2010242 Problem Insomnia due to medical condition G47.01 Active 767626103 Problem Idiopathic neuropathy G60.9 Active Problem Chronic seasonal allergic rhinitis, unspecified trigger J30.2 Active 284584558 Problem Abnormal x-ray of cervical spine R93.7 Active 676611189 Problem Vitamin D deficiency E55.9 Active 14986864 Problem Heartburn R12 Active 34527867 Problem Fibromyalgia M79.7 Active 55136373 Problem Long-term use of high-risk medication Z79.899 Active 000596003 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 59266251 Problem Depression F32.9 Active 81488917 ALLERGIES Substance Reaction Event Type Date Status Neurontin Unknown Drug Allergy Dec, Active Naproxen Unknown Drug Allergy Dec, Active Lyrica Nausea, diarrhea, headaches Drug Allergy Dec, Active Effexor Unknown Drug Allergy Dec, Active Demerol Unknown Drug Allergy Dec, Active Cymbalta 30 Mg Capsule, Delayed Release(e.c.) Unknown Non Drug Allergy Dec, Active ENCOUNTERS Encounter Location Date Diagnosis [facility] [address] [facility] [id number] [address] Mar, [facility] [id number] [place] [address] 24895- 2560 Jan, Encounter for weight loss counseling Z71.3 ; 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 ; Arthritis of both knees M19.90 and BMI 50.0-59.9 , adult Z68.43 [place] [id number] [place] [address] 49971- 9029 Dec, Weight loss counseling, encounter for Z71.3 ; BMI 50.0-59.9 , adult Z68.43 ; 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 ; Abnormal x-ray of cervical spine R93.7 and Vitamin D deficiency E55.9 [place] [address] 56692- 8500 Dec, Encounter for weight loss counseling Z71.3 ; Fibromyalgia M79.7 and BMI 50.0-59.9, adult Z68.43 [place] [id number] [place] [address] 74871- 5960 Nov, [place] [address] 83688- 8339 Nov, Morbid obesity E66.01 ; Paresthesia of upper and lower extremities of both sides R20.2 ; Hair loss L65.9 ; Fibromyalgia M79.7 and BMI 50.0-59.9, adult Z68.43 [place] [id number] [place] [address] 92699- 4963 Nov, Vitamin D deficiency E55.9 [place] [id number] [place] [address] 46175- 6837 Nov, Arthritis of both knees M19.90 and Vitamin D deficiency E55.9 [place] [id number] [place] [address] 66182- 1308 Nov, Chronic seasonal allergic rhinitis, unspecified trigger J30.2 and Heartburn R12 [place] [id number] [place] [address] 56707- 0167 Nov, [place] [address] [place] [id number] [place] [address] 64380- 9214 Nov, Vitamin D deficiency E55.9 [place] [address] 07394- 3604 October, Morbid obesity E66.01 ; Hemorrhoids, unspecified hemorrhoid type K64.9 ; Pre-diabetes R73.03 and BMI 50.0-59.9, adult Z68.43 [place] [address] 14459- 0714 October, [place] [address] 22559- 8349 October, [place] [address] 47189- 0984 October, Left arm numbness R20.0 ; Paresthesia of skin R20.2 ; Anesthesia of skin R20.0 and BMI 50.0-59.9, adult Z68.43 [place] [id number] [place] [address] 26174- 9538 Sep, BMI 50.0-59.9, adult Z68.43 ; Fibromyalgia M79.7 ; Idiopathic neuropathy G60.9 ; Vitamin D deficiency E55.9 ; Chronic seasonal allergic rhinitis, unspecified trigger J30.2 and Long-term use of high-risk medication Z79.899 [place] [id number] [place] [address] 83440- 4029 Aug, Fibromyalgia M79.7 [place] [id number] [place] [address] 97418- 8967 Aug, No diagnosis or condition on [place] I Z03.[address] 22332- 4208 Aug, Chronic seasonal allergic rhinitis, unspecified trigger J30.2 ; Fibromyalgia M79.7 ; Heartburn R12 ; Pre-diabetes R73.03 ; Change of voice R49.9 and BMI 50.0-59.9, adult Z68.43 [place] [id number] [place] [address] 09254- 5865 Aug, Fibromyalgia M79.7 [place] [id number] [place] [address] 45657- 2596 May, Chronic seasonal allergic rhinitis, unspecified trigger J30.2 ; Vaginal itching L29.8 and Vaginal yeast infection B37.3 [place] [id number] [place] [address] 47308- 7468 May, Arthritis of both knees M19.90 [facility] [id number] [place] [address] 56523 -1553 May, Herpes zoster without complication B02.9 and Vaginal penny B37.3 [place] [id number] [place] [address] 66618- 6240 Mar, [place] [id number] [place] [address] 96022- 2569 Mar, Arthritis of both knees M19.90 [place] [id number] [place] [address] 81807- 8745 Mar, Arthritis of both knees M19.90 ; Elevated serum creatinine R79.89 ; Fibromyalgia M79.7 ; Idiopathic neuropathy G60.9 ; Vitamin D deficiency E55.9 ; Pre-diabetes R73.03 and Insomnia due to medical condition G47.01 [place] [id number] [place] [address] 32235- 7040 Mar, [place] [id number] [place] [address] 00540- 3819 Jan, [place] [id number] [place] [address] 79864- 1864 Jan, Pes planus of left foot M21.42 ; Plantar fasciitis of left foot M72.2 and Neuropathy G62.9 [place] [id number] [place] [address] 82080- 2165 Jan, Arthritis of both knees M19.90 ; Fibromyalgia M79.7 ; Idiopathic neuropathy G60.9 ; Vitamin D deficiency E55.9 ; Pre-diabetes R73.03 ; Insomnia due to medical condition G47.01 ; Bad odor of urine R82.90 and SI ( sacroiliac) pain M53.3 [facility] [id number] [place] [address] 29179- 3350 Jan, [facility] [id number] [place] [address] 57576- 9395 Jan, Elevated serum creatinine R79.89 [facility] [id number] [place] [address] 93390- 6975 Dec, [place] [id number] [place] [address] 20514- 1030 Dec, Arthritis of both knees M19.90 ; Fibromyalgia M79.7 ; Idiopathic neuropathy G60.9 ; Vitamin D deficiency E55.9 and Pre-diabetes R73.03 [facility] [id number] [place] [address] 50928- 0250 Dec, Arthritis of both knees M19.90 [facility] [id number] [place] [address] 60203- 0398 October, [facility] [id number] [place] [address] 31864- 8385 October, [facility] [id number] [place] [address] 79202- 5220 October, Fibromyalgia M79.7 [facility] [id number] [place] [address] 55066- 6488 October, Skin tag L91.8 ; Left foot pain M79.672 and Rash and nonspecific skin eruption R21 [facility] [id number] [place] [address] 42029- 4259 Aug, [facility] [id number] [place] [address] 26061- 8980 Aug, Arthritis of both knees M19.90 ; Fibromyalgia M79.7 ; Idiopathic neuropathy G60.9 ; Vitamin D deficiency E55.9 ; Morbid obesity due to excess calories E66.01 and History of prediabetes Z87.898 [facility] [id number] [place] [address] 58952 -0757 Aug, Blood in ear canal, right H92.21 [facility] [address] 42214- 9438 Jul, [place] [address] 77656- 6751 Jul, Arthritis of both knees M19.90 ; Fibromyalgia M79.7 ; Idiopathic neuropathy G60.9 and Vitamin D deficiency E55.9 [place] [id number] [place] [address] 52777- 3256 Jul, Fibromyalgia M79.7 [facility] [address] 49666- 0701 May, Fibromyalgia M79.7 ; Idiopathic neuropathy G60.9 ; Vitamin D deficiency E55.9 ; Memory change R41.3 ; Xerostomia K11.7 and Heartburn R12 [place] [id number] [place] [address] 00609- 2472 May, Fibromyalgia M79.7 ; Idiopathic neuropathy G60.9 ; Vitamin D deficiency E55.9 and Memory change R41.3 [place] [id number] [place] [address] 63921- 9509 May, [place] [id number] [place] [address] 01224- 6274 Mar, [place] [address] 27917- 5649 Jan, [place] [address] 71453- 8177 Jan, [place] [address] 97471- 6573 Jan, Dermatitis L30.9 ; Pain in right shoulder M25.511 ; Fibromyalgia M79.7 and H/O right knee surgery Z98.89 [facility] [id number] [place] [address] 89925- 9129 Dec, [facility] [address] 50350- 3087 Dec, Middle ear effusion, right H65.91 ; Fibromyalgia M79.7 and Heartburn R12 [facility] [address] 81312 -6382 Dec, Otalgia of right ear H92.01 and Middle ear effusion, right H65.91 [facility] [id number] [place] [address] 59449- 4232 Nov, Acute pain of right knee M25.561 [place] [address] 77257- 5900 Nov, [place] [address] 38121- 8196 Nov, Acute pain of right knee M25.561 [facility] [id number] [place] [address] 30877- 7644 October, Osteoarthritis of both knees, unspecified osteoarthritis type M17.0 [facility] [address] 53045- 2141 October, [place] [id number] [place] [address] 61629- 0647 Sep, [place] [address] 31791- 9110 Sep, Fibromyalgia M79.7 ; Chronic fatigue R53.82 ; Sinusitis J32.9 ; Bronchiolitis J21.9 ; Weight gain R63.5 and Heartburn R12 [facility] [address] 17507- 4906 Sep, Mild hearing loss of right ear H91.91 and Tinnitus of right ear H93.11 [place] [id number] [place] [address] 19767- 0868 Aug, [place] [id number] [place] [address] 16423- 5711 Aug, [place] [address] 49866- 4251 Aug, Fibromyalgia M79.7 and Depression F32.9 [place] [id number] [place] [address] 31315- 9878 Aug, [place] [id number] [place] [address] 43823- 2948 Jul, Fibromyalgia M79.7 ; 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 ; Vitamin D deficiency E55.9 ; Long-term use of high-risk medication Z79.899 ; Heartburn R12 ; Chronic fatigue, unspecified R53.82 and Tinnitus of right ear H93.11 [place] [id number] [place] [address] 12056- 1374 Mar, Fibromyalgia M79.7 ; 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 ; Vitamin D deficiency E55.9 ; Diarrhea R19.7 ; Long-term use of high- risk medication Z79.899 and Heartburn R12 [place] [id number] [place] [address] 54687- 7124 Mar, Fibromyalgia 729.1 ; Unspecified hereditary and idiopathic peripheral neuropathy 356.9 ; Unspecified sleep disturbance 780.50 ; Left ankle pain 719.47 and Insomnia 780.52 [place] [id number] [place] [address] 01486- 2335 Mar, Unspecified episodic mood disorder 296.90 and Anxiety state , unspecified 300.00 [place] [id number] [place] [address] 24324- 3244 Mar, Chondromalacia of right knee 717.7 [facility] [address] [id number] [place] [address]- 1237 Jan, [facility] [address] [id number] [place] [address]- 0263 Dec, Left foot pain 729.5 [facility] [place] [facility] [address] [facility] [id number] [place] [address]- 9776 14 Sep, 2014 [facility] [place] [facility] [address] [id number] [place] [address]- 9519 13 Sep, 2014 [facility] [place] [facility] [address] [id number] [place] [address]- 0330 17 Aug, 2014 [facility] [place] [facility] [address] [facility] [id number] [place] [address]- 5494 17 Aug, 2014 [facility] [place] [facility] [address] [facility] [id number] [place] [address]- 0211 16 Aug, 2014 [facility] [place] [facility] [address] [facility] [id number] [place] [address]- 9654 16 Aug, 2014 [facility] [place] [facility] [address] [id number] [place] [address]- 0942 11 Aug, 2014 [facility] [place] [facility] [address] [facility] [id number] [place] [address]- 3120 11 Aug, 2014 [facility] [place] [facility] [address] [facility] [id number] [address]- 2655 11 Aug, 2014 [facility] [place] [facility] [address] [id number], [place] [address]- 9659 11 Aug, 2014 [facility] [place] [facility] [address] [id number] [place] [address]- 5242 10 Aug, 2014 [facility] [place] [facility] [address] [facility] [id number] [place]- 3242 10 Aug, 2014 [facility] [place] [facility] [address] [facility] [id number] [place] [address]- 5697 05 Aug, 2014 [facility] [place] [facility] [address] [facility] [id number] [place] [address]- 2872 Aug, [facility] [place] [facility] [address] [id number] [place] [address]- 2703 Aug, 2014 [facility] [place] [facility] [address] [id number] [place] [address]- 7929 Aug, 2014 [facility] [place] [facility] [address] [id number] [place] [address]- 4500 Aug, 2014 [facility] [place] [facility] [address] [id number] [place] [address]- 5682 Aug, [facility] [place] [facility] [address] [id number] [place] [address]- 4600 Jul, [facility] [place] [facility] [address] [facility] [id number] [place] [address]- 9091 Jul, [facility] [place] [facility] [address] [facility] [id number] [place] [address]- 2256 Jul, [facility] [place] [facility] [address] [id number] [place] [address]- 1163 Jul, [facility] [place] [facility] [address] [facility] [id number] [place] [address]- 7189 May, [facility] [place] [facility] [address] [facility] [id number] [place] [address]- 7369 May, [facility] [place] [facility] [address] [id number] [place] [address]- 0065 May, [facility] [place] [facility] [address] [id number] [place] [address]- 3322 Mar, [facility] [place] [facility] [address] [id number] [place] [address]- 5107 Mar, [facility] [place] [facility] [address] [facility] [id number] [place] [address]- 5043 Mar, [facility] [place] [facility] [address] [facility] [id number] [place] [address]- 9717 Mar, [facility] [place] [facility] [address] [id number] [place] [address]- 9088 Dec, [facility] [place] [facility] [address] [id number] [place] [address]- 4248 Dec, [facility] [place] [facility] [address] [id number] [place] [address]- 6599 Nov, [facility] [place] [facility] [address] [id number] [place] [address]- 0027 Nov, [facility] [place] [facility] [address] [id number] [place] [address]- 4371 Nov, [facility] [place] [facility] [address] [id number] [place] [address]- 7164 Nov, [facility] [place] [facility] [address] [id number] [place] [address]- 0384 Nov, [facility] [place] [facility] [address] [id number] [place] [address]- 1736 Nov, [facility] [place] [facility] [address] [id number] [place] [address]- 6789 October, [facility] [place] [facility] [address] [id number] [place] [address]- 3174 October, [facility] [place] [facility] [address] [id number] [place] [address]- 6251 October, [facility] [place] [facility] [address] [id number] [place] [address]- 4851 October, [facility] [place] [facility] [address] [id number] [place] [address]- 6010 October, [facility] [place] [facility] [address] [id number] [place] [address]- 8455 October, [facility] [place] [facility] [address] [id number] [place] [address]- 6381 October, [facility] [place] [facility] [address] [id number] [place] [address]- 5549 October, [facility] [place] [facility] [address] [id number] [place] [address]- 4517 October, [facility] [place] [facility] [address] [id number] [place] 9941 October, [facility] [place] [facility] [address] [id number] [place] [address]- 7512 October, [facility] [place] [facility] [address] [id number] [place] [address]- 8681 October, [facility] [place] [facility] [address] [id number] [place] [address]- 9262 October, [facility] [place] [facility] [address] [id number] [place] [address]- 7980 Sep, [facility] [place] [facility] [address] [id number] [place] [address]- 2709 Sep, [facility] [place] [facility] [address] [id number] [place] [address]- 8897 Aug, [facility] [place] [facility] [address] [id number] [place] [address]- 0251 Aug, [facility] [place] [facility] [address] [id number] [place] [address]- 0603 Aug, [facility] [place] [facility] [address] [id number] [place] [address]- 1565 Aug, [facility] [place] [facility] [address] [id number] [place] [address]- 5320 Aug, [facility] [place] [facility] [address] [id number] [place] [address]- 9017 Aug, [facility] [place] [facility] [address] [id number] [place] 1649 Aug, [facility] [place] [facility] [address] [id number] [place] [address]- 4111 Aug, [facility] [place] [facility] [address] [id number] [place] [address]- 4782 Aug, [facility] [place] [facility] [address] [id number] [place] [address]- 1886 Aug, [facility] [place] [facility] [address] [id number] [place] [address]- 6506 Aug, [facility] [place] [facility] [address] [id number] [place] [address]- 8310 Aug, [facility] [place] [facility] [address] [id number] [place] [address]- 6249 Jul, [facility] [place] [facility] [address] [id number] [place] [address]- 8722 Jul, [facility] [place] [facility] [address] [id number] [place] [address]- 1152 Jul, [facility] [place] [facility] [address] [id number] [place] [address]- 2490 Jul, [facility] [place] [facility] [address] [id number] [place] [address]- 0013 Mar, [facility] [place] [facility] [address] [id number] [place] [address]- 3587 Mar, [facility] [place] [facility] [address] [id number] [place] [address]- 9812 Jan, [facility] [place] [facility] [address] [id number] [place] [address]- 0530 Sep, [facility] [place] [facility] [address] [id number] [place] [address]- 0681 Aug, [facility] [place] [facility] [address] [id number] [place] [address]- 2810 Aug, [facility] [place] [facility] [address] [id number] [place] [address]- 2354 Aug, [facility] [place] [facility] [address] [id number] [place] [address]- 6029 07 Aug, 2012 [facility] [address] [id number] [place] [address]- 7246 05 Aug, 2012 [facility] [address] [id number] [place] [address] October, [facility] [address] [id number] [place] [address] October, [facility] [address] [id number] [place] [address] Sep, [facility] [address] [id number] [place] [address] Sep, [facility] [address] [id number] [place] [address] Sep, [facility] [address] [id number] [place] [address] Sep, [facility] [address] [id number] [place] [address] 18 Sep, 2011 [facility] [address] [id number] [place] [address] Sep, [facility] [address] [id number] [place] [address] Sep, [facility] [address] [id number] [place] [address] Sep, [facility] [place] [facility] [address] [id number] [place] [address] Sep, [facility] [place] [facility] [address] [id number] [place] [address] 06 Sep, 2011 [facility] [place] [facility] [address] [id number] [place] [address] Aug, [facility] [address] [id number] [place] [address] 17 Aug, 2011 [facility] [address] [id number] [address] Aug, [facility] [id number] [address] Aug, [facility] [address] [id number] [address] Jul, [facility] [id number] [address] Jul, [facility] [id number] [address] Jul, [facility] [id number] [address] May, [facility] [id number], [place] [address] May, [facility] [id number] [place] [address] May, [facility] [id number], [place] [address] Jan, [facility] [address] [id number], [place] [address] Dec, IMMUNIZATIONS No Known Immunizations SOCIAL HISTORY Never Assessed REASON FOR VISIT [facility] Activity Details Follow Up 4 Weeks Reason:wt loss VITAL SIGNS Height 68 in 2018-01-06 Weight 350.3 lbs 2018-01-06 Temperature 98.0 degrees Fahrenheit 2018-01-06 Heart Rate 84 bpm 2018-01-06 Respiratory Rate 20 2018-01-06 BMI 53.26 kg/m2 2018-01-06 Blood pressure systolic 118 mmHg 2018-01-06 Blood pressure diastolic 74 mmHg 2018-01-06 MEDICATIONS Medication Instructions Dosage Frequency Start Date End Date Duration Status Pilocarpine HCl 5 MG Orally Three times a day 1 tablet 8h Active Wheelchair - xtra large Jul, Active Fluticasone Propionate 50 MCG/ACT Nasally Once a day 1 spray in each nostril 24h Active Tizanidine HCl 4 MG Orally 2 times a day 1 tablet as needed 12h 27 Aug, 2017 Nov, 28 days Active Cetirizine HCl 10 mg Orally Once a day 1 tablet 24h 30 days Active Hydrocodone-Acetaminophen 7.5-325 MG Orally daily prn 1/2-1 tablet Sep, Active Vitamin D (Ergocalciferol) 94827 UNIT Orally once weekly x 10 weeks 1 capsule Nov, Active Omeprazole 40 mg Orally Once a day 1 capsule 24h 30 days Active Amitriptyline HCl 10 mg Orally Once a day at hs 1 tablet 28 Active RESULTS No Results PROCEDURES No Known [...]
--- OUTSIDE RECORDS SUMMARY | 2018-06-15 19:05 | XMS REPORT ---
Author Author ALEX HUTCHINSON [facility] Address [address] [place] [address] Care Team Providers Care Director Dietetics Department Name Role Phone ALEX HUTCHINSON Unavailable PROBLEMS Type Condition ICD9-CM Code SQN46-NN Code Onset Dates Condition Status SNOMED Code Problem Other chronic pain G89.29 Active 46340765 Problem Pre-diabetes R73.03 Active 438637896 Problem Arthritis of both knees M19.90 Active 969888975 Problem Paresthesia of skin R20.2 Active 41894973 Problem Morbid obesity E66.01 Active 462047767 Problem No diagnosis or condition on [place] I Z03.89 Active 6494388 Problem Insomnia due to medical condition G47.01 Active 742443280 Problem Idiopathic neuropathy G60.9 Active Problem Chronic seasonal allergic rhinitis, unspecified trigger J30.2 Active 160771506 Problem Abnormal x-ray of cervical spine R93.7 Active 317546438 Problem Vitamin D deficiency E55.9 Active 90168902 Problem Heartburn R12 Active 25048678 Problem Fibromyalgia M79.7 Active 71036582 Problem Long-term use of high-risk medication Z79.899 Active 825010569 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 85197362 Problem Depression F32.9 Active 74702094 ALLERGIES No Information ENCOUNTERS Encounter Location Date Diagnosis [facility] [id number] [address] Mar, [facility] [id number] [place] [address] 35233- 6986 Jan, Encounter for weight loss counseling Z71.3 ; 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 ; Arthritis of both knees M19.90 and BMI 50.0-59.9 , adult Z68.43 [facility] [address] [id number] [address] Dec, Weight loss counseling, encounter for Z71.3 ; BMI 50.0-59.9 , adult Z68.43 ; 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 ; Abnormal x-ray of cervical spine R93.7 and Vitamin D deficiency E55.9 [place] [id number] [place] [address] 80806- 5190 Dec, Encounter for weight loss counseling Z71.3 ; Fibromyalgia M79.7 and BMI 50.0-59.9, adult Z68.43 [place] [id number] [place] [address] 06311- 9062 Nov, [address] [address]- [address]60 Nov, Morbid obesity E66.01 ; Paresthesia of upper and lower extremities of both sides R20.2 ; Hair loss L65.9 ; Fibromyalgia M79.7 and BMI 50.0-59.9, adult Z68.43 [place] [id number] [place] [address] 72690- 3109 Nov, Vitamin D deficiency E55.[address] 18718- 6442 Nov, Arthritis of both knees M19.90 and Vitamin D deficiency E55.9 [id number] [place] [address] 74967- 9849 Nov, Chronic seasonal allergic rhinitis, unspecified trigger J30.2 and Heartburn R12 [place] [id number] [place] [address] 18022- 7459 Nov, [address] 27498- 1047 Nov, Vitamin D deficiency E55.9 [place] [id number] [place] [address] 08228- 8203 October, Morbid obesity E66.01 ; Hemorrhoids, unspecified hemorrhoid type K64.9 ; Pre-diabetes R73.03 and BMI 50.0-59.9, adult Z68.43 [place] [id number] [place] [address] 20798- 8949 October, [place] [address] 49415- 7067 October, [place] [address] 06650- 1636 October, Left arm numbness R20.0 ; Paresthesia of skin R20.2 ; Anesthesia of skin R20.0 and BMI 50.0-59.9, adult Z68.43 [place] [address] 69722- 7111 Sep, BMI 50.0-59.9, adult Z68.43 ; Fibromyalgia M79.7 ; Idiopathic neuropathy G60.9 ; Vitamin D deficiency E55.9 ; Chronic seasonal allergic rhinitis, unspecified trigger J30.2 and Long-term use of high-risk medication Z79.899 [place] [address] 03448- 3433 Aug, Fibromyalgia M79.7 [place] [address] 74577- 7116 Aug, No diagnosis or condition on [place] I Z03.89 [place] [address] 55658- 0144 Aug, Chronic seasonal allergic rhinitis, unspecified trigger J30.2 ; Fibromyalgia M79.7 ; Heartburn R12 ; Pre-diabetes R73.03 ; Change of voice R49.9 and BMI 50.0-59.9, adult Z68.43 [place] [address] 58731- 7632 Aug, Fibromyalgia M79.7 [place] [address] 95855- 6007 May, Chronic seasonal allergic rhinitis, unspecified trigger J30.2 ; Vaginal itching L29.8 and Vaginal yeast infection B37.3 [facility] [address] [address] 66[address] May, Arthritis of both knees M19.90 [facility] [address] [place] [address] 00463 -8055 May, Herpes zoster without complication B02.9 and Vaginal penny B37.3 [facility] [id number] [place] [address] 02887- 7856 Mar, [facility] [address] [place] [address] 19103- 6367 Mar, Arthritis of both knees M19.90 [place] [id number] [place] [address] 25733- 5766 Mar, Arthritis of both knees M19.90 ; Elevated serum creatinine R79.89 ; Fibromyalgia M79.7 ; Idiopathic neuropathy G60.9 ; Vitamin D deficiency E55.9 ; Pre-diabetes R73.03 and Insomnia due to medical condition G47.01 [facility] [id number] [place] [address] 38401- 0975 Mar, [place] [id number] [place] [address] 08286- 8074 Jan, [place] [id number] [place] [address] 78504- 3167 Jan, Pes planus of left foot M21.42 ; Plantar fasciitis of left foot M72.2 and Neuropathy G62.9 [facility] [address] [place] [address] 27361- 0483 Jan, Arthritis of both knees M19.90 ; Fibromyalgia M79.7 ; Idiopathic neuropathy G60.9 ; Vitamin D deficiency E55.9 ; Pre-diabetes R73.03 ; Insomnia due to medical condition G47.01 ; Bad odor of urine R82.90 and SI ( sacroiliac) pain M53.3 [place] [id number] [place] [address] 83712- 6458 Jan, [facility] [address] [place] [address] 89565- 8910 Jan, Elevated serum creatinine R79.89 [facility] [address] [place] [address] 64012- 1581 Dec, [facility] [id number] [place] [address] 59742- 8003 Dec, Arthritis of both knees M19.90 ; Fibromyalgia M79.7 ; Idiopathic neuropathy G60.9 ; Vitamin D deficiency E55.9 and Pre-diabetes R73.03 [place] [id number] [place] [address] 67755- 0294 Dec, Arthritis of both knees M19.90 [place] [id number] [place] [address] 70416- 0517 October, [place] [id number] [place] [address] 49085- 6448 October, [facility] [id number] [place] [address] 73488- 0987 October, Fibromyalgia M79.7 [facility] [id number] [place] [address] 09778- 2150 October, Skin tag L91.8 ; Left foot pain M79.672 and Rash and nonspecific skin eruption R21 [place] [address] [place] [address] 11805- 6938 Aug, [facility] [address] [place] [address] 31488- 2254 Aug, Arthritis of both knees M19.90 ; Fibromyalgia M79.7 ; Idiopathic neuropathy G60.9 ; Vitamin D deficiency E55.9 ; Morbid obesity due to excess calories E66.01 and History of prediabetes Z87.898 [facility] [address] [place] [address] 47026 -5097 Aug, Blood in ear canal, right H92.21 [facility] [id number] [place] [address] 08995- 1018 Jul, [place] [address] 28209- 8828 Jul, Arthritis of both knees M19.90 ; Fibromyalgia M79.7 ; Idiopathic neuropathy G60.9 and Vitamin D deficiency E55.9 [place] [address] 25314- 0545 Jul, Fibromyalgia M79.7 [place] [address] 30618- 2068 May, Fibromyalgia M79.7 ; Idiopathic neuropathy G60.9 ; Vitamin D deficiency E55.9 ; Memory change R41.3 ; Xerostomia K11.7 and Heartburn R12 [place] [address] 52747- 9086 May, Fibromyalgia M79.7 ; Idiopathic neuropathy G60.9 ; Vitamin D deficiency E55.9 and Memory change R41.3 [place] [address] 90494- 8134 May, [place] [address] 53241- 7049 Mar, [place] [id number] [place] [address] 37878- 0104 Jan, [facility] [address] 86115- 6954 Jan, [place] [address] 32281- 0509 Jan, Dermatitis L30.9 ; Pain in right shoulder M25.511 ; Fibromyalgia M79.7 and H/O right knee surgery Z98.89 [place] [address] 85688- 9157 Dec, [place] [address] [address]- 3921 13 Dec, 2015 Middle ear effusion, right H65.91 ; Fibromyalgia M79.7 and Heartburn R12 [facility] [id number] [place] [address] 13182 -8708 Dec, Otalgia of right ear H92.01 and Middle ear effusion, right H65.91 [facility] [id number] [place] [address] 05125- 5551 Nov, Acute pain of right knee M25.561 [facility] [id number] [place] [address] 94246- 7190 Nov, [place] [id number] [place] [address] 44393- 2823 Nov, Acute pain of right knee M25.561 [facility] [id number] [place] [address] 24290- 1248 October, Osteoarthritis of both knees, unspecified osteoarthritis type M17.0 [facility] [id number] [place] [address] 00209- 0039 October, [place] [id number] [place] [address] 29127- 5923 Sep, [facility] [id number] [place] [address] 14999- 7798 Sep, Fibromyalgia M79.7 ; Chronic fatigue R53.82 ; Sinusitis J32.9 ; Bronchiolitis J21.9 ; Weight gain R63.5 and Heartburn R12 [facility] [address] [address]- 5284 Sep, Mild hearing loss of right ear H91.91 and Tinnitus of right ear H93.11 [facility] [id number] [place] [address] 99583- 2138 Aug, [facility] [id number] [place] [address] 80815- 6775 Aug, [facility] [id number] [place] [address] 59193- 8257 Aug, Fibromyalgia M79.7 and Depression F32.9 [place] [id number] [place] [address] 51183- 4248 Aug, [place] [id number] [place] [address] 86300- 3748 Jul, Fibromyalgia M79.7 ; 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 ; Vitamin D deficiency E55.9 ; Long-term use of high-risk medication Z79.899 ; Heartburn R12 ; Chronic fatigue, unspecified R53.82 and Tinnitus of right ear H93.11 [place] [id number] [place] [address] 71030- 9365 Mar, Fibromyalgia M79.7 ; 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 ; Vitamin D deficiency E55.9 ; Diarrhea R19.7 ; Long-term use of high- risk medication Z79.899 and Heartburn R12 [place] [id number] [place] [address] 37662- 4794 Mar, Fibromyalgia 729.1 ; Unspecified hereditary and idiopathic peripheral neuropathy 356.9 ; Unspecified sleep disturbance 780.50 ; Left ankle pain 719.47 and Insomnia 780.52 [place] [id number] [place] [address] 69009- 5231 Mar, Unspecified episodic mood disorder 296.90 and Anxiety state , unspecified 300.00 [place] [id number] [place] [address] 29983- 5972 Mar, Chondromalacia of right knee 717.7 [place] [id number] [place] [address] 60557- 2793 Jan, [place] [id number] [place] [address] 58342- 4985 Dec, Left foot pain 729.5 [place] [address] [place] [address]- 2876 14 Sep, 2014 [facility] [place] [facility] [address] [id number] [place] [address]- 2359 13 Sep, 2014 [facility] [place] [facility] [address] [id number] [place] [address]- 2227 17 Aug, 2014 [facility] [place] [facility] [address] [id number] [place] [address]- 1469 17 Aug, 2014 [facility] [place] [facility] [address] [id number] [place] [address]- 0002 16 Aug, 2014 [facility] [place] [facility] [address] [id number] [place] [address]- 0988 16 Aug, 2014 [facility] [place] [facility] [address] [id number] [place] [address]- 7330 11 Aug, 2014 [facility] [place] [facility] [address] [id number] [place] [address]- 0890 11 Aug, 2014 [facility] [place] [facility] [address] [id number] [place] [address]- 1446 11 Aug, 2014 [facility] [place] [facility] [address] [id number] [place] [address]- 1695 11 Aug, 2014 [facility] [place] [facility] [address] [id number] [place] [address]- 2289 10 Aug, 2014 [facility] [place] [facility] [address] [id number] [place] [address]- 9182 10 Aug, 2014 [facility] [place] [facility] [address] [id number] [place] [address]- 2159 05 Aug, 2014 [facility] [place] [facility] [address] [id number] [place] 2427 05 Aug, 2014 [facility] [place] [facility] [address] [id number] [place] [address]- 7079 12 Aug, 2014 [facility] [place] [facility] [address] [id number] [place] [address]- 3311 12 Aug, 2014 [facility] [place] [facility] [address] [id number] [place] [address]- 9120 Aug, [facility] [place] [facility] [address] [id number] [place] [address]- 3401 Aug, [facility] [place] [facility] [address] [id number] [place] [address]- 1252 Jul, [facility] [place] [facility] [address] [id number] [place] [address]- 0167 Jul, [facility] [place] [facility] [address] [id number] [place] [address]- 1361 Jul, [facility] [place] [facility] [address] [id number] [place] [address]- 7075 Jul, [facility] [place] [facility] [address] [facility] [id number] [place] [address]- 6197 May, [facility] [place] [facility] [address] [id number] [address]- 6503 May, [facility] [place] [facility] [address] [id number] [place] [address]- 1856 May, [facility] [place] [facility] [address] [id number] [address]- 4431 Mar, [facility] [place] [facility] [address] [id number] [address]- 8231 Mar, [facility] [place] [facility] [address] [id number] [place] [address]- 6738 Mar, [facility] [place] [facility] [address] [id number] [place] [address]- 6558 Mar, [facility] [place] [facility] [address] [id number] [address]- 5140 Dec, [facility] [place] [facility] [address] [id number] [address]- 6794 Dec, [facility] [place] [facility] [address] [id number] [address]- 6526 Nov, [facility] [place] [facility] [address] [id number] [place] [address]- 8993 Nov, [facility] [place] [facility] [address] [id number] [place] [address]- 1135 Nov, [facility] [place] [facility] [address] [id number] [place] [address]- 0458 Nov, [facility] [place] [facility] [address] [id number] [place] [address]- 4949 Nov, [facility] [place] [facility] [address] [id number] [place] [address]- 7506 Nov, [facility] [place] [facility] [address] [id number] [place] [address]- 7719 October, [facility] [place] [facility] [address] [id number] [place] [address]- 2309 October, [facility] [place] [facility] [address] [id number] [place] [address]- 2277 October, [facility] [place] [facility] [address] [id number] [place] [address]- 7168 October, [facility] [place] [facility] [address] [id number] [place] [address]- 8757 October, [facility] [place] [facility] [address] [id number] [place] [address]- 6004 October, [facility] [place] [facility] [address] [id number] [place] [address]- 3273 October, [facility] [place] [facility] [address] [id number] [place] [address]- 6813 October, [facility] [place] [facility] [address] [id number] [place] [address]- 8966 October, [facility] [place] [facility] [address] [id number] [place] [address]- 3061 October, [facility] [place] [facility] [address] [id number] [place] [address]- 9094 October, [facility] [place] [facility] [address] [id number] [place] [address]- 9242 October, [facility] [place] [facility] [address] [id number] [place] [address]- 5196 October, [facility] [place] [facility] [address] [id number] [place] [address]- 6519 Sep, [facility] [place] [facility] [address] [id number] [place] [address]- 4048 Sep, [facility] [place] [facility] [address] [id number] [place] [address]- 1114 Aug, [facility] [place] [facility] [address] [id number] [place] [address]- 2444 Aug, [facility] [place] [facility] [address] [id number] [place] [address]- 7459 Aug, [facility] [place] [facility] [address] [id number] [place] [address]- 2554 Aug, [facility] [place] [facility] [address] [id number] [place] [address]- 8617 Aug, [facility] [place] [facility] [address] [id number] [place] [address]- 7704 Aug, [facility] [place] [facility] [address] [id number] [place] [address]- 7191 Aug, [facility] [place] [facility] [address] [id number] [place] [address]- 0867 Aug, [facility] [place] [facility] [address] [id number] [place] [address]- 5955 Aug, [facility] [place] [facility] [address] [id number] [place] [address]- 7716 Aug, [facility] [place] [facility] [address] [id number] [place] [address]- 5786 Aug, [facility] [address] [id number] [place] [address]- 9461 Aug, [facility] [place] [facility] [address] [id number] [place] [address]- 0752 Jul, [facility] [place] [facility] [address] [facility] [id number] [place] [address]- 6280 Jul, [facility] [place] [facility] [address] [id number] [address]- 0799 Jul, [facility] [place] [facility] [address] [id number] [place] [address]- 8618 Jul, [facility] [place] [facility] [address] [facility] [id number] [address]- 3984 Mar, [facility] [place] [facility] [address] [facility] [id number] [address]- 7266 Mar, [facility] [place] [facility] [address] [id number] [address]- 2165 Jan, [facility] [place] [facility] [address] [id number] [place] [address]- 8261 Sep, [facility] [place] [facility] [address] [facility] [id number] [address]- 6106 Aug, [facility] [place] [facility] [address] [id number] [place] [address]- 4566 Aug, [facility] [place] [facility] [address] [id number] [address]- 7255 Aug, [facility] [place] [facility] [address] [id number] [place] [address]- 2950 Aug, [facility] [place] [facility] [address] [id number] [place] [address]- 9525 Aug, [facility] [place] [facility] [address] [facility] [id number] [address]- 8723 October, [facility] [place] [facility] [address] [id number] [place] [address]- 8814 October, [facility] [place] [facility] [address] [id number] [place] [address]- 4746 Sep, [facility] [place] [facility] [address] [id number] [place] [address] Sep, [facility] [place] [facility] [address] [id number] [place] [address] Sep, [facility] [place] [facility] [address] [id number] [place] [address] Sep, [facility] [place] [facility] [address] [id number] [place] [address] Sep, [facility] [place] [facility] [address] [id number] [place] [address] Sep, [facility] [place] [facility] [address] [id number] [place] [address] Sep, [facility] [place] [facility] [address] [id number] [place] [address] Sep, [facility] [place] [facility] [address] [id number] [place] [address] Sep, [facility] [place] [facility] [address] [id number] [place] [address] Sep, [facility] [place] [facility] [address] [id number] [place] [address] Aug, [facility] [place] [facility] [address] [id number] [place] [address] 17 Aug, 2011 [facility] [place] [facility] [address] [id number] [place] [address] 13 Aug, 2011 [facility] [place] [facility] [address] [id number] [place] [address] 10 Aug, 2011 [facility] [place] [facility] [address] [id number] [place] [address] Jul, [facility] [address] [facility] [id number] [place] [address] Jul, [facility] [address] [id number] [place] [address] Jul, [facility] [address] [id number] [place] [address] May, [facility] [address] [id number] [place] [address] May, [facility] [address] [id number] [place] [address] May, [facility] [address] [id number] [place] [address] Jan, [facility] [address] [id number] [place] [address] Dec, IMMUNIZATIONS No Known Immunizations SOCIAL HISTORY Never Assessed REASON FOR VISIT Medical question PLAN OF CARE VITAL SIGNS MEDICATIONS Unknown [...]
--- OUTSIDE RECORDS SUMMARY | 2018-06-15 19:05 | XMS REPORT ---
Author Author ALEX HUTCHINSON [facility] Address [address] [place] [address] Care Team Providers Care Aix Architect Name Role Phone ALEX HUTCHINSON Unavailable PROBLEMS Type Condition ICD9-CM Code MSL61-HK Code Onset Dates Condition Status SNOMED Code Problem Other chronic pain G89.29 Active 28912119 Problem Pre-diabetes R73.03 Active 602711286 Problem Arthritis of both knees M19.90 Active 864434732 Problem Paresthesia of skin R20.2 Active 53925424 Problem Morbid obesity E66.01 Active 675984396 Problem No diagnosis or condition on [place] I Z03.89 Active 4618597 Problem Insomnia due to medical condition G47.01 Active 027248604 Problem Idiopathic neuropathy G60.9 Active Problem Chronic seasonal allergic rhinitis, unspecified trigger J30.2 Active 045573423 Problem Abnormal x-ray of cervical spine R93.7 Active 781756571 Problem Vitamin D deficiency E55.9 Active 75026229 Problem Heartburn R12 Active 24522797 Problem Fibromyalgia M79.7 Active 27180823 Problem Long-term use of high-risk medication Z79.899 Active 542875901 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 ; Abnormal x-ray of cervical spine R93.7 and Vitamin D deficiency E55.9 [place] [address] [address]74- 1405 Dec, Encounter for weight loss counseling Z71.3 ; Fibromyalgia M79.7 and BMI 50.0-59.9, adult Z68.43 [place] [id number] [place] [address] 24596- 0813 Nov, [place] [address] 27369- 0097 Nov, Morbid obesity E66.01 ; Paresthesia of upper and lower extremities of both sides R20.2 ; Hair loss L65.9 ; Fibromyalgia M79.7 and BMI 50.0-59.9, adult Z68.43 [place] [id number] [place] [address] 52127- 0536 Nov, Vitamin D deficiency E55.9 [facility] [id number] [place] [address] 87582- 3822 Nov, Arthritis of both knees M19.90 and Vitamin D deficiency E55.9 [place] [id number] [place] [address] 15980- 6176 Nov, Chronic seasonal allergic rhinitis, unspecified trigger J30.2 and Heartburn R12 [place] [id number] [place] [address] 74279- 7967 Nov, [place] [id number] [place] [address] 59170- 1945 Nov, Vitamin D deficiency E55.9 [place] [address] 20297- 4316 October, Morbid obesity E66.01 ; Hemorrhoids, unspecified hemorrhoid type K64.9 ; Pre-diabetes R73.03 and BMI 50.0-59.9, adult Z68.43 [place] [address] 60991- 3430 October, [place] [address] 61365- 5721 October, [place] [address] 29548- 9117 October, Left arm numbness R20.0 ; Paresthesia of skin R20.2 ; Anesthesia of skin R20.0 and BMI 50.0-59.9, adult Z68.43 [place] [id number] [place] [address] 91166- 0062 Sep, BMI 50.0-59.9, adult Z68.43 ; Fibromyalgia M79.7 ; Idiopathic neuropathy G60.9 ; Vitamin D deficiency E55.9 ; Chronic seasonal allergic rhinitis, unspecified trigger J30.2 and Long-term use of high-risk medication Z79.899 [place] [id number] [place] [address] 49094- 6422 Aug, Fibromyalgia M79.7 [place] [id number] [place] [address] 69838- 4594 Aug, No diagnosis or condition on [place] I Z03.[address] 80287- 3033 Aug, Chronic seasonal allergic rhinitis, unspecified trigger J30.2 ; Fibromyalgia M79.7 ; Heartburn R12 ; Pre-diabetes R73.03 ; Change of voice R49.9 and BMI 50.0-59.9, adult Z68.43 [place] [id number] [place] [address] 30557- 5102 Aug, Fibromyalgia M79.7 [place] [id number] [place] [address] 61647- 7300 May, Chronic seasonal allergic rhinitis, unspecified trigger J30.2 ; Vaginal itching L29.8 and Vaginal yeast infection B37.3 [place] [id number] [place] [address] 41893- 3423 May, Arthritis of both knees M19.90 [facility] [id number] [place] [address] 80338 -2981 May, Herpes zoster without complication B02.9 and Vaginal penny B37.3 [place] [id number] [place] [address] 18084- 8885 Mar, [place] [id number] [place] [address] 51563- 0835 Mar, Arthritis of both knees M19.90 [place] [id number] [place] [address] 70450- 8782 Mar, Arthritis of both knees M19.90 ; Elevated serum creatinine R79.89 ; Fibromyalgia M79.7 ; Idiopathic neuropathy G60.9 ; Vitamin D deficiency E55.9 ; Pre-diabetes R73.03 and Insomnia due to medical condition G47.01 [place] [id number] [place] [address] 19893- 4209 Mar, [place] [id number] [place] [address] 53894- 9773 Jan, [place] [id number] [place] [address] 38075- 6957 Jan, Pes planus of left foot M21.42 ; Plantar fasciitis of left foot M72.2 and Neuropathy G62.9 [place] [id number] [place] [address] 73065- 0120 Jan, Arthritis of both knees M19.90 ; Fibromyalgia M79.7 ; Idiopathic neuropathy G60.9 ; Vitamin D deficiency E55.9 ; Pre-diabetes R73.03 ; Insomnia due to medical condition G47.01 ; Bad odor of urine R82.90 and SI ( sacroiliac) pain M53.3 [facility] [id number] [place] [address] 61160- 0809 Jan, [facility] [id number] [place] [address] 31604- 1796 Jan, Elevated serum creatinine R79.89 [facility] [id number] [place] [address] 39046- 3061 Dec, [place] [id number] [place] [address] 86534- 9188 Dec, Arthritis of both knees M19.90 ; Fibromyalgia M79.7 ; Idiopathic neuropathy G60.9 ; Vitamin D deficiency E55.9 and Pre-diabetes R73.03 [facility] [id number] [place] [address] 35869- 4469 Dec, Arthritis of both knees M19.90 [facility] [id number] [place] [address] 47265- 4516 October, [facility] [id number] [place] [address] 53431- 2921 October, [facility] [id number] [place] [address] 92857- 7082 October, Fibromyalgia M79.7 [facility] [id number] [place] [address] 71227- 0286 October, Skin tag L91.8 ; Left foot pain M79.672 and Rash and nonspecific skin eruption R21 [facility] [id number] [place] [address] 72657- 1773 Aug, [facility] [id number] [place] [address] 27431- 3736 Aug, Arthritis of both knees M19.90 ; Fibromyalgia M79.7 ; Idiopathic neuropathy G60.9 ; Vitamin D deficiency E55.9 ; Morbid obesity due to excess calories E66.01 and History of prediabetes Z87.898 [facility] [id number] [place] [address] 46091 -3282 Aug, Blood in ear canal, right H92.21 [facility] [address] 67659- 1400 Jul, [place] [address] 20095- 4565 Jul, Arthritis of both knees M19.90 ; Fibromyalgia M79.7 ; Idiopathic neuropathy G60.9 and Vitamin D deficiency E55.9 [place] [id number] [place] [address] 31848- 1656 Jul, Fibromyalgia M79.7 [facility] [address] 52344- 9279 May, Fibromyalgia M79.7 ; Idiopathic neuropathy G60.9 ; Vitamin D deficiency E55.9 ; Memory change R41.3 ; Xerostomia K11.7 and Heartburn R12 [place] [id number] [place] [address] 07378- 8851 May, Fibromyalgia M79.7 ; Idiopathic neuropathy G60.9 ; Vitamin D deficiency E55.9 and Memory change R41.3 [place] [id number] [place] [address] 25508- 7476 May, [place] [id number] [place] [address] 67904- 3988 Mar, [place] [address] 44037- 2489 Jan, [place] [address] 79158- 7263 Jan, [place] [address] 55351- 2614 Jan, Dermatitis L30.9 ; Pain in right shoulder M25.511 ; Fibromyalgia M79.7 and H/O right knee surgery Z98.89 [facility] [id number] [place] [address] 09730- 7151 Dec, [facility] [address] 18850- 7685 Dec, Middle ear effusion, right H65.91 ; Fibromyalgia M79.7 and Heartburn R12 [facility] [address] 40693 -4738 Dec, Otalgia of right ear H92.01 and Middle ear effusion, right H65.91 [facility] [id number] [place] [address] 28181- 4510 Nov, Acute pain of right knee M25.561 [place] [address] 79190- 1044 Nov, [place] [address] 05490- 9426 Nov, Acute pain of right knee M25.561 [facility] [id number] [place] [address] 87547- 3283 October, Osteoarthritis of both knees, unspecified osteoarthritis type M17.0 [facility] [address] 47884- 6801 October, [place] [id number] [place] [address] 02985- 3793 Sep, [place] [address] 59559- 5763 Sep, Fibromyalgia M79.7 ; Chronic fatigue R53.82 ; Sinusitis J32.9 ; Bronchiolitis J21.9 ; Weight gain R63.5 and Heartburn R12 [facility] [address] 47922- 3691 Sep, Mild hearing loss of right ear H91.91 and Tinnitus of right ear H93.11 [place] [id number] [place] [address] 10981- 4707 Aug, [place] [id number] [place] [address] 06138- 7844 Aug, [place] [address] 91948- 1863 Aug, Fibromyalgia M79.7 and Depression F32.9 [place] [id number] [place] [address] 61919- 9100 Aug, [place] [id number] [place] [address] 65532- 1340 Jul, Fibromyalgia M79.7 ; 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 ; Vitamin D deficiency E55.9 ; Long-term use of high-risk medication Z79.899 ; Heartburn R12 ; Chronic fatigue, unspecified R53.82 and Tinnitus of right ear H93.11 [place] [id number] [place] [address] 79996- 1306 Mar, Fibromyalgia M79.7 ; 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 ; Vitamin D deficiency E55.9 ; Diarrhea R19.7 ; Long-term use of high- risk medication Z79.899 and Heartburn R12 [place] [id number] [place] [address] 07895- 3004 Mar, Fibromyalgia 729.1 ; Unspecified hereditary and idiopathic peripheral neuropathy 356.9 ; Unspecified sleep disturbance 780.50 ; Left ankle pain 719.47 and Insomnia 780.52 [place] [id number] [place] [address] 96811- 9592 Mar, Unspecified episodic mood disorder 296.90 and Anxiety state , unspecified 300.00 [place] [id number] [place] [address] 09354- 4741 Mar, Chondromalacia of right knee 717.7 [facility] [address] [id number] [place] [address]- 3080 Jan, [facility] [address] [id number] [place] [address]- 4884 Dec, Left foot pain 729.5 [facility] [place] [facility] [address] [facility] [id number] [place] [address]- 9026 14 Sep, 2014 [facility] [place] [facility] [address] [id number] [place] [address]- 4748 13 Sep, 2014 [facility] [place] [facility] [address] [id number] [place] [address]- 5534 17 Aug, 2014 [facility] [place] [facility] [address] [facility] [id number] [place] [address]- 1765 17 Aug, 2014 [facility] [place] [facility] [address] [facility] [id number] [place] [address]- 1313 16 Aug, 2014 [facility] [place] [facility] [address] [facility] [id number] [place] [address]- 9445 16 Aug, 2014 [facility] [place] [facility] [address] [id number] [place] [address]- 0824 11 Aug, 2014 [facility] [place] [facility] [address] [facility] [id number] [place] [address]- 7230 11 Aug, 2014 [facility] [place] [facility] [address] [facility] [id number], [place] [address]- 0476 11 Aug, 2014 [facility] [place] [facility] [address] [id number], [place] [address]- 3153 11 Aug, 2014 [facility] [place] [facility] [address] [id number] [place] [address]- 2580 10 Aug, 2014 [facility] [place] [facility] [address] [facility] [id number] [place] 6856 10 Aug, 2014 [facility] [place] [facility] [address] [facility] [id number] [place] [address]- 4351 05 Aug, 2014 [facility] [place] [facility] [address] [facility] [id number] [place] [address]- 9055 Aug, [facility] [place] [facility] [address] [id number] [place] [address]- 4093 Aug, 2014 [facility] [place] [facility] [address] [id number] [place] [address]- 2536 Aug, 2014 [facility] [place] [facility] [address] [id number] [place] [address]- 3193 Aug, 2014 [facility] [place] [facility] [address] [id number] [place] [address]- 9755 Aug, [facility] [place] [facility] [address] [id number] [place] [address]- 8546 Jul, [facility] [place] [facility] [address] [facility] [id number] [place] [address]- 5673 Jul, [facility] [place] [facility] [address] [facility] [id number] [place] [address]- 5877 Jul, [facility] [place] [facility] [address] [id number] [place] [address]- 2686 Jul, [facility] [place] [facility] [address] [facility] [id number] [place] [address]- 1673 May, [facility] [place] [facility] [address] [facility] [id number] [place] [address]- 1141 May, [facility] [place] [facility] [address] [id number] [place] [address]- 2087 May, [facility] [place] [facility] [address] [id number] [place] [address]- 6387 Mar, [facility] [place] [facility] [address] [id number] [place] [address]- 7695 Mar, [facility] [place] [facility] [address] [facility] [id number] [place] [address]- 0727 Mar, [facility] [place] [facility] [address] [facility] [id number] [place] [address]- 4000 Mar, [facility] [place] [facility] [address] [id number] [place] [address]- 9823 Dec, [facility] [place] [facility] [address] [id number] [place] [address]- 2310 Dec, [facility] [place] [facility] [address] [id number] [place] [address]- 6311 Nov, [facility] [place] [facility] [address] [id number] [place] [address]- 1865 Nov, [facility] [place] [facility] [address] [id number] [place] [address]- 7133 Nov, [facility] [place] [facility] [address] [id number] [place] [address]- 4858 Nov, [facility] [place] [facility] [address] [id number] [place] [address]- 5298 Nov, [facility] [place] [facility] [address] [id number] [place] [address]- 8051 Nov, [facility] [place] [facility] [address] [id number] [place] [address]- 5291 October, [facility] [place] [facility] [address] [id number] [place] [address]- 3311 October, [facility] [place] [facility] [address] [id number] [place] [address]- 3296 October, [facility] [place] [facility] [address] [id number] [place] [address]- 7486 October, [facility] [place] [facility] [address] [id number] [place] [address]- 3615 October, [facility] [place] [facility] [address] [id number] [place] [address]- 3357 October, [facility] [place] [facility] [address] [id number] [place] [address]- 9412 October, [facility] [place] [facility] [address] [id number] [place] [address]- 7705 October, [facility] [place] [facility] [address] [id number] [place] [address]- 4425 October, [facility] [place] [facility] [address] [id number] [place] 3033 October, [facility] [place] [facility] [address] [id number] [place] [address]- 5441 October, [facility] [place] [facility] [address] [id number] [place] [address]- 9309 October, [facility] [place] [facility] [address] [id number] [place] [address]- 2400 October, [facility] [place] [facility] [address] [id number] [place] [address]- 8062 Sep, [facility] [place] [facility] [address] [id number] [place] [address]- 0978 Sep, [facility] [place] [facility] [address] [id number] [place] [address]- 6214 Aug, [facility] [place] [facility] [address] [id number] [place] [address]- 2624 Aug, [facility] [place] [facility] [address] [id number] [place] [address]- 5681 Aug, [facility] [place] [facility] [address] [id number] [place] [address]- 6483 Aug, [facility] [place] [facility] [address] [id number] [place] [address]- 0999 Aug, [facility] [place] [facility] [address] [id number] [place] [address]- 5455 Aug, [facility] [place] [facility] [address] [id number] [place] 1660 Aug, [facility] [place] [facility] [address] [id number] [place] [address]- 0419 Aug, [facility] [place] [facility] [address] [id number] [place] [address]- 7996 Aug, [facility] [place] [facility] [address] [id number] [place] [address]- 4850 Aug, [facility] [place] [facility] [address] [id number] [place] [address]- 2476 Aug, [facility] [place] [facility] [address] [id number] [place] [address]- 3478 Aug, [facility] [place] [facility] [address] [id number] [place] [address]- 8024 Jul, [facility] [place] [facility] [address] [id number] [place] [address]- 8717 Jul, [facility] [place] [facility] [address] [id number] [place] [address]- 6509 Jul, [facility] [place] [facility] [address] [id number] [place] [address]- 0785 Jul, [facility] [place] [facility] [address] [id number] [place] [address]- 6306 Mar, [facility] [place] [facility] [address] [id number] [place] [address]- 1253 Mar, [facility] [place] [facility] [address] [id number] [place] [address]- 6106 Jan, [facility] [place] [facility] [address] [id number] [place] [address]- 6277 Sep, [facility] [place] [facility] [address] [id number] [place] [address]- 8548 Aug, [facility] [place] [facility] [address] [id number] [place] [address]- 3912 Aug, [facility] [place] [facility] [address] [id number] [place] [address]- 5357 Aug, [facility] [place] [facility] [address] [id number] [place] [address]- 1206 07 Aug, 2012 [facility] [address] [id number] [place] [address]- 2503 05 Aug, 2012 [facility] [address] [id number] [place] [address]- 3887 October, [facility] [address] [id number] [place] [address]- 6537 October, [facility] [address] [id number] [place] [address]- 6038 Sep, [facility] [address] [id number] [place] [address]- 6642 Sep, [facility] [address] [id number] [place] [address]- 1393 Sep, [facility] [address] [id number] [place] [address] Sep, [facility] [address] [id number] [place] [address] 18 Sep, 2011 [facility] [address] [id number] [place] [address] Sep, [facility] [address] [id number] [place] [address] Sep, [facility] [address] [id number] [place] [address] Sep, [facility] [place] [facility] [address] [id number] [place] [address] Sep, [facility] [place] [facility] [address] [id number] [place] [address] 06 Sep, 2011 [facility] [place] [facility] [address] [id number] [place] [address] Aug, [facility] [address] [id number] [place] [address] 17 Aug, 2011 [facility] [address] [id number] [address] Aug, [facility] [address] [id number], [place] [address] Aug, [facility] [address] [id number], [place] [address] Jul, [facility] [id number], [place] [address] Jul, [facility] [id number], [place] [address] Jul, [facility] [id number], [place] [address] May, [facility] [id number], [place] [address] May, [facility] [id number], [place] [address] May, [facility] [id number], [place] [address] Jan, [facility] [address] [id number], [place] [address] Dec, IMMUNIZATIONS No Known Immunizations SOCIAL HISTORY Never Assessed REASON FOR VISIT Weight Loss-KRUPA Prieto PLAN OF CARE Activity Details Follow Up 4 Weeks Reason:wt loss VITAL SIGNS Height 68 in 2017-12-20 Weight 337 lbs 2017-12-20 Temperature 98.4 degrees Fahrenheit 2017-12-20 Heart Rate 80 bpm 2017-12-20 Respiratory Rate 18 2017-12-20 BMI 51.24 kg/m2 2017-12-20 Blood pressure systolic 128 mmHg 2017-12-20 Blood pressure diastolic 68 mmHg 2017-12-20 MEDICATIONS Medication Instructions Dosage Frequency Start Date End Date Duration Status Fluticasone Propionate 50 MCG/ACT Nasally Once a day 1 spray in each nostril 24h Active Amitriptyline HCl 10 mg Orally Once a day at hs 1 tablet 28 Active Vitamin D (Ergocalciferol) 57963 UNIT Orally once weekly x 10 weeks 1 capsule Nov, Active Cetirizine HCl 10 mg Orally Once a day 1 tablet 24h 30 days Active Omeprazole 40 mg Orally Once a day 1 capsule 24h 30 days Active Wheelchair - xtra large Jul, Active Pilocarpine HCl 5 MG Orally Three times a day 1 tablet 8h Active Hydrocodone-Acetaminophen 7.5-325 MG Orally daily prn 1/2-1 tablet Sep, Active BuPROPion HCl 75 MG Orally Once a day x 1wk then increase to twice daily 1 tablet October, 30 day(s) Not-Taking RESULTS No Results PROCEDURES Procedure Date Ordered Result Body Site LAB NOT BILLED BY [facility] December 20, 2017 VENIPUNCT, ROUTINE* December 20, 2017 INSTRUCTIONS MEDICATIONS ADMINISTERED No Known Medications MEDICAL [...]
--- OUTSIDE RECORDS SUMMARY | 2018-06-15 19:06 | XMS REPORT ---
Author Author ALEX HUTCHINSON [facility] Address [address] [place] [address] Care Team Providers Care Customer Energy Specialist Name Role Phone ALEX HUTCHINSON Unavailable PROBLEMS Type Condition ICD9-CM Code CBP24-YY Code Onset Dates Condition Status SNOMED Code Problem Other chronic pain G89.29 Active 85508169 Problem Pre-diabetes R73.03 Active 640379672 Problem Arthritis of both knees M19.90 Active 887081635 Problem Paresthesia of skin R20.2 Active 08439363 Problem Morbid obesity E66.01 Active 272170852 Problem No diagnosis or condition on [place] I Z03.89 Active 0976381 Problem Insomnia due to medical condition G47.01 Active 003931437 Problem Idiopathic neuropathy G60.9 Active Problem Chronic seasonal allergic rhinitis, unspecified trigger J30.2 Active 913570527 Problem Abnormal x-ray of cervical spine R93.7 Active 529520055 Problem Vitamin D deficiency E55.9 Active 90178673 Problem Heartburn R12 Active 56850428 Problem Fibromyalgia M79.7 Active 57576150 Problem Long-term use of high-risk medication Z79.899 Active 031184579 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 06417031 Problem Depression F32.9 Active 72419241 ALLERGIES No Information ENCOUNTERS Encounter Location Date Diagnosis [facility] [id number] [address] Mar, [facility] [id number] [place] [address] 01131- 6936 Jan, Encounter for weight loss counseling Z71.3 ; 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 ; Arthritis of both knees M19.90 and BMI 50.0-59.9 , adult Z68.43 [facility] [id number], [place] [address] Dec, Weight loss counseling, encounter for Z71.3 ; BMI 50.0-59.9 , adult Z68.43 ; 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 ; Abnormal x-ray of cervical spine R93.7 and Vitamin D deficiency E55.9 [place] [id number] [place] [address] 09369- 8437 Dec, Encounter for weight loss counseling Z71.3 ; Fibromyalgia M79.7 and BMI 50.0-59.9, adult Z68.43 [place] [id number] [place] [address] 73374- 9505 Nov, [address] [address]- [address] Nov, Morbid obesity E66.01 ; Paresthesia of upper and lower extremities of both sides R20.2 ; Hair loss L65.9 ; Fibromyalgia M79.7 and BMI 50.0-59.9, adult Z68.43 [place] [id number] [place] [address] 47218- 5197 Nov, Vitamin D deficiency E55.[address] [address]- 1604 Nov, Arthritis of both knees M19.90 and Vitamin D deficiency E55.9 [id number] [place] [address] 13418- 6669 Nov, Chronic seasonal allergic rhinitis, unspecified trigger J30.2 and Heartburn R12 [place] [id number] [place] [address] 30547- 0526 Nov, [address] [address]- 1915 Nov, Vitamin D deficiency E55.9 [place] [id number] [place] [address] 01406- 8087 October, Morbid obesity E66.01 ; Hemorrhoids, unspecified hemorrhoid type K64.9 ; Pre-diabetes R73.03 and BMI 50.0-59.9, adult Z68.43 [place] [id number] [place] [address] 64163- 1268 October, [place] [address] [address]- 5879 October, [place] [address] 33862- 1814 October, Left arm numbness R20.0 ; Paresthesia of skin R20.2 ; Anesthesia of skin R20.0 and BMI 50.0-59.9, adult Z68.43 [place] [address] 87893- 2466 Sep, BMI 50.0-59.9, adult Z68.43 ; Fibromyalgia M79.7 ; Idiopathic neuropathy G60.9 ; Vitamin D deficiency E55.9 ; Chronic seasonal allergic rhinitis, unspecified trigger J30.2 and Long-term use of high-risk medication Z79.899 [place] [address] 82525- 0142 Aug, Fibromyalgia M79.7 [place] [address] 55475- 8726 Aug, No diagnosis or condition on [place] I Z03.89 [place] [address] 84063- 1933 Aug, Chronic seasonal allergic rhinitis, unspecified trigger J30.2 ; Fibromyalgia M79.7 ; Heartburn R12 ; Pre-diabetes R73.03 ; Change of voice R49.9 and BMI 50.0-59.9, adult Z68.43 [place] [address] 42123- 4118 Aug, Fibromyalgia M79.7 [place] [address] 75445- 2404 May, Chronic seasonal allergic rhinitis, unspecified trigger J30.2 ; Vaginal itching L29.8 and Vaginal yeast infection B37.3 [facility] [address], [place] [address] May, Arthritis of both knees M19.90 [facility] [id number] [place] [address] 34905 -3319 May, Herpes zoster without complication B02.9 and Vaginal penny B37.3 [facility] [id number] [place] [address] 08563- 3046 Mar, [facility] [id number] [place] [address] 88674- 1651 Mar, Arthritis of both knees M19.90 [place] [id number] [place] [address] 28561- 5804 Mar, Arthritis of both knees M19.90 ; Elevated serum creatinine R79.89 ; Fibromyalgia M79.7 ; Idiopathic neuropathy G60.9 ; Vitamin D deficiency E55.9 ; Pre-diabetes R73.03 and Insomnia due to medical condition G47.01 [facility] [id number] [place] [address] 82987- 3730 Mar, [place] [id number] [place] [address] 03066- 7933 Jan, [place] [id number] [place] [address] 90457- 8486 Jan, Pes planus of left foot M21.42 ; Plantar fasciitis of left foot M72.2 and Neuropathy G62.9 [facility] [id number] [place] [address] 62006- 3471 Jan, Arthritis of both knees M19.90 ; Fibromyalgia M79.7 ; Idiopathic neuropathy G60.9 ; Vitamin D deficiency E55.9 ; Pre-diabetes R73.03 ; Insomnia due to medical condition G47.01 ; Bad odor of urine R82.90 and SI ( sacroiliac) pain M53.3 [place] [id number] [place] [address] 68612- 5332 Jan, [facility] [address] [place] [address] 11216- 0062 Jan, Elevated serum creatinine R79.89 [facility] [address] [place] [address] 01278- 2431 Dec, [facility] [id number] [place] [address] 53742- 3149 Dec, Arthritis of both knees M19.90 ; Fibromyalgia M79.7 ; Idiopathic neuropathy G60.9 ; Vitamin D deficiency E55.9 and Pre-diabetes R73.03 [place] [id number] [place] [address] 26260- 3200 Dec, Arthritis of both knees M19.90 [place] [id number] [place] [address] 68627- 7598 October, [place] [id number] [place] [address] 42370- 8370 October, [facility] [id number] [place] [address] 55306- 5358 October, Fibromyalgia M79.7 [facility] [id number] [place] [address] 15796- 4939 October, Skin tag L91.8 ; Left foot pain M79.672 and Rash and nonspecific skin eruption R21 [place] [address] [place] [address] 02214- 4729 Aug, [facility] [address] [place] [address] 37914- 5382 Aug, Arthritis of both knees M19.90 ; Fibromyalgia M79.7 ; Idiopathic neuropathy G60.9 ; Vitamin D deficiency E55.9 ; Morbid obesity due to excess calories E66.01 and History of prediabetes Z87.898 [facility] [address] [place] [address] 55345 -8797 Aug, Blood in ear canal, right H92.21 [facility] [id number] [place] [address] 38165- 2794 Jul, [place] [address] 88638- 3689 Jul, Arthritis of both knees M19.90 ; Fibromyalgia M79.7 ; Idiopathic neuropathy G60.9 and Vitamin D deficiency E55.9 [place] [address] 03110- 3381 Jul, Fibromyalgia M79.7 [place] [address] 85345- 8466 May, Fibromyalgia M79.7 ; Idiopathic neuropathy G60.9 ; Vitamin D deficiency E55.9 ; Memory change R41.3 ; Xerostomia K11.7 and Heartburn R12 [place] [address] 09294- 6488 May, Fibromyalgia M79.7 ; Idiopathic neuropathy G60.9 ; Vitamin D deficiency E55.9 and Memory change R41.3 [place] [address] 20274- 1787 May, [place] [address] 19910- 6430 Mar, [place] [id number] [place] [address] 73813- 1012 Jan, [facility] [address] 01064- 7154 Jan, [place] [address] 78071- 5861 Jan, Dermatitis L30.9 ; Pain in right shoulder M25.511 ; Fibromyalgia M79.7 and H/O right knee surgery Z98.89 [place] [address] 32867- 7121 Dec, [place] [address] [address]- 1856 13 Dec, 2015 Middle ear effusion, right H65.91 ; Fibromyalgia M79.7 and Heartburn R12 [facility] [address] [place] [address] 59830 -5283 Dec, Otalgia of right ear H92.01 and Middle ear effusion, right H65.91 [facility] [id number] [place] [address] 42720- 7874 Nov, Acute pain of right knee M25.561 [facility] [id number] [place] [address] 75484- 7483 Nov, [place] [id number] [place] [address] 62512- 1441 Nov, Acute pain of right knee M25.561 [facility] [id number] [place] [address] 22760- 3027 October, Osteoarthritis of both knees, unspecified osteoarthritis type M17.0 [facility] [id number] [place] [address] 07967- 7513 October, [place] [id number] [place] [address] 25012- 9549 Sep, [facility] [id number] [place] [address] 60984- 9261 Sep, Fibromyalgia M79.7 ; Chronic fatigue R53.82 ; Sinusitis J32.9 ; Bronchiolitis J21.9 ; Weight gain R63.5 and Heartburn R12 [facility] [address], [place] [address]- 4028 Sep, Mild hearing loss of right ear H91.91 and Tinnitus of right ear H93.11 [facility] [id number] [place] [address] 41405- 5673 Aug, [facility] [id number] [place] [address] 02573- 2691 Aug, [facility] [id number] [place] [address] 80308- 7775 Aug, Fibromyalgia M79.7 and Depression F32.9 [place] [id number] [place] [address] 96996- 9132 Aug, [place] [id number] [place] [address] 60044- 7938 Jul, Fibromyalgia M79.7 ; 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 ; Vitamin D deficiency E55.9 ; Long-term use of high-risk medication Z79.899 ; Heartburn R12 ; Chronic fatigue, unspecified R53.82 and Tinnitus of right ear H93.11 [place] [id number] [place] [address] 24354- 0104 Mar, Fibromyalgia M79.7 ; 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 ; Vitamin D deficiency E55.9 ; Diarrhea R19.7 ; Long-term use of high- risk medication Z79.899 and Heartburn R12 [place] [id number] [place] [address] 44427- 0824 Mar, Fibromyalgia 729.1 ; Unspecified hereditary and idiopathic peripheral neuropathy 356.9 ; Unspecified sleep disturbance 780.50 ; Left ankle pain 719.47 and Insomnia 780.52 [place] [id number] [place] [address] 41238- 3845 Mar, Unspecified episodic mood disorder 296.90 and Anxiety state , unspecified 300.00 [place] [id number] [place] [address] 65879- 9744 Mar, Chondromalacia of right knee 717.7 [place] [id number] [place] [address] 77291- 4358 Jan, [place] [id number] [place] [address] 48415- 3187 Dec, Left foot pain 729.5 [place] [address] [place] [address]- 9688 14 Sep, 2014 [facility] [place] [facility] [address] [id number] [place] [address]- 5548 13 Sep, 2014 [facility] [place] [facility] [address] [id number] [place] [address]- 5786 17 Aug, 2014 [facility] [place] [facility] [address] [id number] [place] [address]- 3345 17 Aug, 2014 [facility] [place] [facility] [address] [id number] [place] [address]- 5948 16 Aug, 2014 [facility] [place] [facility] [address] [id number] [place] [address]- 1383 16 Aug, 2014 [facility] [place] [facility] [address] [id number] [place] [address]- 9793 11 Aug, 2014 [facility] [place] [facility] [address] [id number] [place] [address]- 2748 11 Aug, 2014 [facility] [place] [facility] [address] [id number] [place] [address]- 3812 11 Aug, 2014 [facility] [place] [facility] [address] [id number] [place] [address]- 5749 11 Aug, 2014 [facility] [place] [facility] [address] [id number] [place] [address]- 1127 10 Aug, 2014 [facility] [place] [facility] [address] [id number] [place] [address]- 3121 10 Aug, 2014 [facility] [place] [facility] [address] [id number] [place] [address]- 4943 05 Aug, 2014 [facility] [place] [facility] [address] [id number] [place] 9392 05 Aug, 2014 [facility] [place] [facility] [address] [id number] [place] [address]- 5801 12 Aug, 2014 [facility] [place] [facility] [address] [id number] [place] [address]- 4275 12 Aug, 2014 [facility] [place] [facility] [address] [id number] [place] [address]- 1352 Aug, [facility] [place] [facility] [address] [id number] [place] [address]- 5133 Aug, [facility] [place] [facility] [address] [id number] [place] [address]- 6980 Jul, [facility] [place] [facility] [address] [id number] [place] [address]- 2575 Jul, [facility] [place] [facility] [address] [id number] [place] [address]- 7192 Jul, [facility] [place] [facility] [address] [id number] [place] [address]- 0192 Jul, [facility] [place] [facility] [address] [facility] [id number] [place] [address]- 6295 May, [facility] [place] [facility] [address] [id number], [place] [address]- 9574 May, [facility] [place] [facility] [address] [id number] [place] [address]- 1544 May, [facility] [place] [facility] [address] [id number], [place] [address]- 5864 Mar, [facility] [place] [facility] [address] [id number], [place] [address]- 7292 Mar, [facility] [place] [facility] [address] [id number], [place] [address]- 2083 Mar, [facility] [place] [facility] [address] [id number] [place] [address]- 2128 Mar, [facility] [place] [facility] [address] [id number], [place] [address]- 1869 Dec, [facility] [place] [facility] [address] [id number], [place] [address]- 2117 Dec, [facility] [place] [facility] [address] [id number], [place] [address]- 2191 Nov, [facility] [place] [facility] [address] [id number] [place] [address]- 9806 Nov, [facility] [place] [facility] [address] [id number] [place] [address]- 3113 Nov, [facility] [place] [facility] [address] [id number] [place] [address]- 4038 Nov, [facility] [place] [facility] [address] [id number] [place] [address]- 1707 Nov, [facility] [place] [facility] [address] [id number] [place] [address]- 9952 Nov, [facility] [place] [facility] [address] [id number] [place] [address]- 5857 October, [facility] [place] [facility] [address] [id number] [place] [address]- 5895 October, [facility] [place] [facility] [address] [id number] [place] [address]- 1779 October, [facility] [place] [facility] [address] [id number] [place] [address]- 7769 October, [facility] [place] [facility] [address] [id number] [place] [address]- 3628 October, [facility] [place] [facility] [address] [id number] [place] [address]- 7229 October, [facility] [place] [facility] [address] [id number] [place] [address]- 9555 October, [facility] [place] [facility] [address] [id number] [place] [address]- 7899 October, [facility] [place] [facility] [address] [id number] [place] [address]- 6323 October, [facility] [place] [facility] [address] [id number] [place] [address]- 1098 October, [facility] [place] [facility] [address] [id number] [place] [address]- 5668 October, [facility] [place] [facility] [address] [id number] [place] [address]- 4149 October, [facility] [place] [facility] [address] [id number] [place] [address]- 4416 October, [facility] [place] [facility] [address] [id number] [place] [address]- 9635 Sep, [facility] [place] [facility] [address] [id number] [place] [address]- 3168 Sep, [facility] [place] [facility] [address] [id number] [place] [address]- 2538 Aug, [facility] [place] [facility] [address] [id number] [place] [address]- 9686 Aug, [facility] [place] [facility] [address] [id number] [place] [address]- 7691 Aug, [facility] [place] [facility] [address] [id number] [place] [address]- 8612 Aug, [facility] [place] [facility] [address] [id number] [place] [address]- 0316 Aug, [facility] [place] [facility] [address] [id number] [place] [address]- 7373 Aug, [facility] [place] [facility] [address] [id number] [place] [address]- 5689 Aug, [facility] [place] [facility] [address] [id number] [place] [address]- 5306 Aug, [facility] [place] [facility] [address] [id number] [place] [address]- 0462 Aug, [facility] [place] [facility] [address] [id number] [place] [address]- 9026 Aug, [facility] [place] [facility] [address] [id number] [place] [address]- 8650 Aug, [facility] [address] [id number] [place] [address]- 3062 Aug, [facility] [place] [facility] [address] [id number] [place] [address]- 9176 Jul, [facility] [place] [facility] [address] [facility] [id number] [place] [address]- 6403 Jul, [facility] [place] [facility] [address] [id number], [place] [address]- 0938 Jul, [facility] [place] [facility] [address] [id number] [place] [address]- 9440 Jul, [facility] [place] [facility] [address] [facility] [id number], [place] [address]- 6585 Mar, [facility] [place] [facility] [address] [facility] [id number], [place] [address]- 4980 Mar, [facility] [place] [facility] [address] [id number], [place] [address]- 1772 Jan, [facility] [place] [facility] [address] [id number], [place] [address]- 7784 Sep, [facility] [place] [facility] [address] [facility] [id number], [place] [address]- 9880 Aug, [facility] [place] [facility] [address] [id number], [place] [address]- 0529 Aug, [facility] [place] [facility] [address] [id number], [place] [address]- 1541 Aug, [facility] [place] [facility] [address] [id number], [place] [address]- 1454 Aug, [facility] [place] [facility] [address] [id number], [place] [address]- 5935 Aug, [facility] [place] [facility] [address] [facility] [id number], [place] [address]- 0615 October, [facility] [place] [facility] [address] [id number] [place] [address]- 2845 October, [facility] [place] [facility] [address] [id number] [place] [address]- 8487 Sep, [facility] [place] [facility] [address] [id number] [place] [address]- 9136 Sep, [facility] [place] [facility] [address] [id number] [place] [address]- 9135 Sep, [facility] [place] [facility] [address] [id number] [place] [address]- 7131 Sep, [facility] [place] [facility] [address] [id number] [place] [address] Sep, [facility] [place] [facility] [address] [id number] [place] [address] Sep, [facility] [place] [facility] [address] [id number] [place] [address] Sep, [facility] [place] [facility] [address] [id number] [place] [address] Sep, [facility] [place] [facility] [address] [id number] [place] [address] Sep, [facility] [place] [facility] [address] [id number] [place] [address] Sep, [facility] [place] [facility] [address] [id number] [place] [address] Aug, [facility] [place] [facility] [address] [id number] [place] [address] 17 Aug, 2011 [facility] [place] [facility] [address] [id number] [place] [address] 13 Aug, 2011 [facility] [place] [facility] [address] [id number] [place] [address] 10 Aug, 2011 [facility] [place] [facility] [address] [id number], [place] [address] Jul, [facility] [address] [facility] [id number], [place] [address] Jul, [facility] [address] [id number], [place] [address] Jul, [facility] [address] [id number], [place] [address] May, [facility] [address] [id number], [place] [address] May, [facility] [address] [id number], [place] [address] May, [facility] [address] [id number], [place] [address] Jan, [facility] [address] [id number], [place] [address] Dec, IMMUNIZATIONS No Known Immunizations SOCIAL HISTORY Never Assessed REASON FOR VISIT med order, lab deferred PLAN OF CARE VITAL SIGNS MEDICATIONS Medication Instructions Dosage Frequency Start Date End Date Duration Status Vitamin D (Ergocalciferol) 58486 UNIT Orally once weekly x 10 weeks 1 capsule Nov, Active RESULTS No Results PROCEDURES No Known [...]
--- OUTSIDE RECORDS SUMMARY | 2018-06-15 19:06 | XMS REPORT ---
Author Author ALEX HUTCHINSON [facility] Address [address] [place] [address] Care Team Providers Care Patch Sander Name Role Phone ALEX HUTCHINSON Unavailable PROBLEMS Type Condition ICD9-CM Code MLL37-SU Code Onset Dates Condition Status SNOMED Code Problem Other chronic pain G89.29 Active 12660737 Problem Pre-diabetes R73.03 Active 005512791 Problem Arthritis of both knees M19.90 Active 354059812 Problem Paresthesia of skin R20.2 Active 39848674 Problem Morbid obesity E66.01 Active 047423678 Problem No diagnosis or condition on [place] I Z03.89 Active 9422270 Problem Insomnia due to medical condition G47.01 Active 748728809 Problem Idiopathic neuropathy G60.9 Active Problem Chronic seasonal allergic rhinitis, unspecified trigger J30.2 Active 066296086 Problem Abnormal x-ray of cervical spine R93.7 Active 619516850 Problem Vitamin D deficiency E55.9 Active 66326570 Problem Heartburn R12 Active 16395336 Problem Fibromyalgia M79.7 Active 24859842 Problem Long-term use of high-risk medication Z79.899 Active 994089605 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 69243507 Problem Depression F32.9 Active 33841324 ALLERGIES No Information ENCOUNTERS Encounter Location Date Diagnosis [facility] [address] [facility] [id number] [address] Mar, [facility] [address] [place] [address] 20354- 7917 Jan, Encounter for weight loss counseling Z71.3 ; 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 ; Arthritis of both knees M19.90 and BMI 50.0-59.9 , adult Z68.43 [facility] [address] [id number] [address] Dec, Weight loss counseling, encounter for Z71.3 ; BMI 50.0-59.9 , adult Z68.43 ; 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 ; Abnormal x-ray of cervical spine R93.7 and Vitamin D deficiency E55.9 [place] [id number] [place] [address] 94036- 8422 Dec, Encounter for weight loss counseling Z71.3 ; Fibromyalgia M79.7 and BMI 50.0-59.9, adult Z68.43 [place] [id number] [place] [address] 80678- 8561 Nov, [address] [address]- 9186 Nov, Morbid obesity E66.01 ; Paresthesia of upper and lower extremities of both sides R20.2 ; Hair loss L65.9 ; Fibromyalgia M79.7 and BMI 50.0-59.9, adult Z68.43 [place] [id number] [place] [address] 83858- 9279 Nov, Vitamin D deficiency E55.[address] 0[address]18- 4935 Nov, Arthritis of both knees M19.90 and Vitamin D deficiency E55.9 [id number] [place] [address] 12320- 7868 Nov, Chronic seasonal allergic rhinitis, unspecified trigger J30.2 and Heartburn R12 [place] [id number] [place] [address] 11239- 5705 Nov, [address] 76760- 2655 Nov, Vitamin D deficiency E55.9 [place] [id number] [place] [address] 92308- 2345 October, Morbid obesity E66.01 ; Hemorrhoids, unspecified hemorrhoid type K64.9 ; Pre-diabetes R73.03 and BMI 50.0-59.9, adult Z68.43 [place] [id number] [place] [address] 68192- 5243 October, [place] [address] 57497- 2249 October, [place] [address] 94995- 7087 October, Left arm numbness R20.0 ; Paresthesia of skin R20.2 ; Anesthesia of skin R20.0 and BMI 50.0-59.9, adult Z68.43 [place] [address] 23190- 8650 Sep, BMI 50.0-59.9, adult Z68.43 ; Fibromyalgia M79.7 ; Idiopathic neuropathy G60.9 ; Vitamin D deficiency E55.9 ; Chronic seasonal allergic rhinitis, unspecified trigger J30.2 and Long-term use of high-risk medication Z79.899 [place] [address] 62706- 5161 Aug, Fibromyalgia M79.7 [place] [address] 95463- 5964 Aug, No diagnosis or condition on [place] I Z03.89 [place] [address] 00867- 0701 Aug, Chronic seasonal allergic rhinitis, unspecified trigger J30.2 ; Fibromyalgia M79.7 ; Heartburn R12 ; Pre-diabetes R73.03 ; Change of voice R49.9 and BMI 50.0-59.9, adult Z68.43 [place] [address] 48959- 6722 Aug, Fibromyalgia M79.7 [place] [address] 47207- 4229 May, Chronic seasonal allergic rhinitis, unspecified trigger J30.2 ; Vaginal itching L29.8 and Vaginal yeast infection B37.3 [facility] [address] [address] 8043 May, Arthritis of both knees M19.90 [facility] [address] [place] [address] 67389 -1274 May, Herpes zoster without complication B02.9 and Vaginal penny B37.3 [facility] [address] [place] [address] 58605- 1796 Mar, [facility] [address] [place] [address] 08020- 8468 Mar, Arthritis of both knees M19.90 [place] [id number] [place] [address] 71466- 5791 Mar, Arthritis of both knees M19.90 ; Elevated serum creatinine R79.89 ; Fibromyalgia M79.7 ; Idiopathic neuropathy G60.9 ; Vitamin D deficiency E55.9 ; Pre-diabetes R73.03 and Insomnia due to medical condition G47.01 [facility] [id number] [place] [address] 31048- 3126 Mar, [place] [id number] [place] [address] 03624- 6086 Jan, [place] [id number] [place] [address] 23525- 1165 Jan, Pes planus of left foot M21.42 ; Plantar fasciitis of left foot M72.2 and Neuropathy G62.9 [facility] [address] [place] [address] 67239- 1983 Jan, Arthritis of both knees M19.90 ; Fibromyalgia M79.7 ; Idiopathic neuropathy G60.9 ; Vitamin D deficiency E55.9 ; Pre-diabetes R73.03 ; Insomnia due to medical condition G47.01 ; Bad odor of urine R82.90 and SI ( sacroiliac) pain M53.3 [place] [id number] [place] [address] 20790- 2875 Jan, [facility] [address] [place] [address] 95828- 2009 Jan, Elevated serum creatinine R79.89 [facility] [address] [place] [address] 49561- 1126 Dec, [facility] [id number] [place] [address] 34300- 9569 Dec, Arthritis of both knees M19.90 ; Fibromyalgia M79.7 ; Idiopathic neuropathy G60.9 ; Vitamin D deficiency E55.9 and Pre-diabetes R73.03 [place] [id number] [place] [address] 51136- 1271 Dec, Arthritis of both knees M19.90 [place] [id number] [place] [address] 40496- 7406 October, [place] [id number] [place] [address] 82957- 7421 October, [facility] [id number] [place] [address] 84994- 2187 October, Fibromyalgia M79.7 [facility] [id number] [place] [address] 55952- 0306 October, Skin tag L91.8 ; Left foot pain M79.672 and Rash and nonspecific skin eruption R21 [place] [address] [place] [address] 12363- 0051 Aug, [facility] [address] [place] [address] 45544- 3215 Aug, Arthritis of both knees M19.90 ; Fibromyalgia M79.7 ; Idiopathic neuropathy G60.9 ; Vitamin D deficiency E55.9 ; Morbid obesity due to excess calories E66.01 and History of prediabetes Z87.898 [facility] [address] [place] [address] 09658 -7473 Aug, Blood in ear canal, right H92.21 [facility] [id number] [place] [address] 54921- 5381 Jul, [place] [address] 82089- 8511 Jul, Arthritis of both knees M19.90 ; Fibromyalgia M79.7 ; Idiopathic neuropathy G60.9 and Vitamin D deficiency E55.9 [place] [address] 52827- 8373 Jul, Fibromyalgia M79.7 [place] [address] 17962- 1854 May, Fibromyalgia M79.7 ; Idiopathic neuropathy G60.9 ; Vitamin D deficiency E55.9 ; Memory change R41.3 ; Xerostomia K11.7 and Heartburn R12 [place] [address] 37244- 6102 May, Fibromyalgia M79.7 ; Idiopathic neuropathy G60.9 ; Vitamin D deficiency E55.9 and Memory change R41.3 [place] [address] 38808- 6927 May, [place] [address] 71299- 2490 Mar, [place] [id number] [place] [address] 17147- 8054 Jan, [facility] [address] 42806- 1838 Jan, [place] [address] 46253- 0078 Jan, Dermatitis L30.9 ; Pain in right shoulder M25.511 ; Fibromyalgia M79.7 and H/O right knee surgery Z98.89 [place] [address] 73365- 6460 Dec, [place] [address] [address]- 0154 13 Dec, 2015 Middle ear effusion, right H65.91 ; Fibromyalgia M79.7 and Heartburn R12 [facility] [address] [place] [address] 13250 -9483 Dec, Otalgia of right ear H92.01 and Middle ear effusion, right H65.91 [facility] [id number] [place] [address] 97063- 7429 Nov, Acute pain of right knee M25.561 [facility] [id number] [place] [address] 56409- 4426 Nov, [place] [id number] [place] [address] 01448- 4155 Nov, Acute pain of right knee M25.561 [facility] [id number] [place] [address] 42739- 8524 October, Osteoarthritis of both knees, unspecified osteoarthritis type M17.0 [facility] [id number] [place] [address] 74592- 3998 October, [place] [id number] [place] [address] 70975- 8586 Sep, [facility] [id number] [place] [address] 57644- 1983 Sep, Fibromyalgia M79.7 ; Chronic fatigue R53.82 ; Sinusitis J32.9 ; Bronchiolitis J21.9 ; Weight gain R63.5 and Heartburn R12 [facility] [address] [address]- 8383 Sep, Mild hearing loss of right ear H91.91 and Tinnitus of right ear H93.11 [facility] [id number] [place] [address] 66990- 7062 Aug, [facility] [id number] [place] [address] 51857- 6197 Aug, [facility] [id number] [place] [address] 86753- 6349 Aug, Fibromyalgia M79.7 and Depression F32.9 [place] [id number] [place] [address] 06845- 5804 Aug, [place] [id number] [place] [address] 69821- 0754 Jul, Fibromyalgia M79.7 ; 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 ; Vitamin D deficiency E55.9 ; Long-term use of high-risk medication Z79.899 ; Heartburn R12 ; Chronic fatigue, unspecified R53.82 and Tinnitus of right ear H93.11 [place] [id number] [place] [address] 96960- 5082 Mar, Fibromyalgia M79.7 ; 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 ; Vitamin D deficiency E55.9 ; Diarrhea R19.7 ; Long-term use of high- risk medication Z79.899 and Heartburn R12 [place] [id number] [place] [address] 46287- 7023 Mar, Fibromyalgia 729.1 ; Unspecified hereditary and idiopathic peripheral neuropathy 356.9 ; Unspecified sleep disturbance 780.50 ; Left ankle pain 719.47 and Insomnia 780.52 [place] [id number] [place] [address] 17308- 8824 Mar, Unspecified episodic mood disorder 296.90 and Anxiety state , unspecified 300.00 [place] [id number] [place] [address] 63211- 8694 Mar, Chondromalacia of right knee 717.7 [place] [id number] [place] [address] 10948- 5137 Jan, [place] [id number] [place] [address] 89611- 7724 Dec, Left foot pain 729.5 [place] [address] [place] [address]- 0412 14 Sep, 2014 [facility] [place] [facility] [address] [id number] [place] [address]- 6987 13 Sep, 2014 [facility] [place] [facility] [address] [id number] [place] [address]- 5635 17 Aug, 2014 [facility] [place] [facility] [address] [id number] [place] [address]- 1143 17 Aug, 2014 [facility] [place] [facility] [address] [id number] [place] [address]- 0890 16 Aug, 2014 [facility] [place] [facility] [address] [id number] [place] [address]- 6730 16 Aug, 2014 [facility] [place] [facility] [address] [id number] [place] [address]- 8551 11 Aug, 2014 [facility] [place] [facility] [address] [id number] [place] [address]- 8818 11 Aug, 2014 [facility] [place] [facility] [address] [id number] [place] [address]- 2951 11 Aug, 2014 [facility] [place] [facility] [address] [id number] [place] [address]- 4951 11 Aug, 2014 [facility] [place] [facility] [address] [id number] [place] [address]- 4785 10 Aug, 2014 [facility] [place] [facility] [address] [id number] [place] [address]- 2092 10 Aug, 2014 [facility] [place] [facility] [address] [id number] [place] [address]- 6032 05 Aug, 2014 [facility] [place] [facility] [address] [id number] [place]- 2584 05 Aug, 2014 [facility] [place] [facility] [address] [id number] [place] [address]- 5319 12 Aug, 2014 [facility] [place] [facility] [address] [id number] [place] [address]- 0079 12 Aug, 2014 [facility] [place] [facility] [address] [id number] [place] [address]- 6417 Aug, [facility] [place] [facility] [address] [id number] [place] [address]- 2658 Aug, [facility] [place] [facility] [address] [id number] [place] [address]- 2480 Jul, [facility] [place] [facility] [address] [id number] [place] [address]- 6737 Jul, [facility] [place] [facility] [address] [id number] [place] [address]- 5308 Jul, [facility] [place] [facility] [address] [id number] [place] [address]- 7376 Jul, [facility] [place] [facility] [address] [facility] [id number] [place] [address]- 7975 May, [facility] [place] [facility] [address] [id number] [address]- 5043 May, [facility] [place] [facility] [address] [id number] [place] [address]- 7551 May, [facility] [place] [facility] [address] [id number] [place] [address]- 8537 Mar, [facility] [place] [facility] [address] [id number] [place] [address]- 1978 Mar, [facility] [place] [facility] [address] [id number] [address]- 1976 Mar, [facility] [place] [facility] [address] [id number] [place] [address]- 0191 Mar, [facility] [place] [facility] [address] [id number] [place] [address]- 8249 Dec, [facility] [place] [facility] [address] [id number] [place] [address]- 3644 Dec, [facility] [place] [facility] [address] [id number] [address]- 6989 Nov, [facility] [place] [facility] [address] [id number] [place] [address]- 0205 Nov, [facility] [place] [facility] [address] [id number] [place] [address]- 4383 Nov, [facility] [place] [facility] [address] [id number] [place] [address]- 6262 Nov, [facility] [place] [facility] [address] [id number] [place] [address]- 4002 Nov, [facility] [place] [facility] [address] [id number] [place] [address]- 8064 Nov, [facility] [place] [facility] [address] [id number] [place] [address]- 4169 October, [facility] [place] [facility] [address] [id number] [place] [address]- 6198 October, [facility] [place] [facility] [address] [id number] [place] [address]- 4921 October, [facility] [place] [facility] [address] [id number] [place] [address]- 4858 October, [facility] [place] [facility] [address] [id number] [place] [address]- 0088 October, [facility] [place] [facility] [address] [id number] [place] [address]- 8604 October, [facility] [place] [facility] [address] [id number] [place] [address]- 6077 October, [facility] [place] [facility] [address] [id number] [place] [address]- 3510 October, [facility] [place] [facility] [address] [id number] [place] [address]- 0322 October, [facility] [place] [facility] [address] [id number] [place] [address]- 0081 October, [facility] [place] [facility] [address] [id number] [place] [address]- 5223 October, [facility] [place] [facility] [address] [id number] [place] [address]- 1157 October, [facility] [place] [facility] [address] [id number] [place] [address]- 4066 October, [facility] [place] [facility] [address] [id number] [place] [address]- 4933 Sep, [facility] [place] [facility] [address] [id number] [place] [address]- 0647 Sep, [facility] [place] [facility] [address] [id number] [place] [address]- 8139 Aug, [facility] [place] [facility] [address] [id number] [place] [address]- 4536 Aug, [facility] [place] [facility] [address] [id number] [place] [address]- 2986 Aug, [facility] [place] [facility] [address] [id number] [place] [address]- 9623 Aug, [facility] [place] [facility] [address] [id number] [place] [address]- 5765 Aug, [facility] [place] [facility] [address] [id number] [place] [address]- 9070 Aug, [facility] [place] [facility] [address] [id number] [place] [address]- 8006 Aug, [facility] [place] [facility] [address] [id number] [place] [address]- 1050 Aug, [facility] [place] [facility] [address] [id number] [place] [address]- 6159 Aug, [facility] [place] [facility] [address] [id number] [place] [address]- 5296 Aug, [facility] [place] [facility] [address] [id number] [place] [address]- 0415 Aug, [facility] [address] [id number] [place] [address]- 1544 Aug, [facility] [place] [facility] [address] [id number] [place] [address]- 5403 Jul, [facility] [place] [facility] [address] [facility] [id number] [place] [address]- 8858 Jul, [facility] [place] [facility] [address] [id number] [address]- 2944 Jul, [facility] [place] [facility] [address] [id number] [place] [address]- 4017 Jul, [facility] [place] [facility] [address] [facility] [id number] [place] [address]- 5472 Mar, [facility] [place] [facility] [address] [facility] [id number] [place] [address]- 0356 Mar, [facility] [place] [facility] [address] [id number] [place] [address]- 3980 Jan, [facility] [place] [facility] [address] [id number] [place] [address]- 5185 Sep, [facility] [place] [facility] [address] [facility] [id number] [place] [address]- 3834 Aug, [facility] [place] [facility] [address] [id number] [place] [address]- 6149 Aug, [facility] [place] [facility] [address] [id number] [place] [address]- 1474 Aug, [facility] [place] [facility] [address] [id number] [place] [address]- 8538 Aug, [facility] [place] [facility] [address] [id number] [place] [address]- 8142 Aug, [facility] [place] [facility] [address] [facility] [id number] [place] [address]- 2968 October, [facility] [place] [facility] [address] [id number] [place] [address]- 0305 October, [facility] [place] [facility] [address] [id number] [place] [address]- 6311 Sep, [facility] [place] [facility] [address] [id number] [place] [address]- 9226 Sep, [facility] [place] [facility] [address] [id number] [place] [address]- 2855 Sep, [facility] [place] [facility] [address] [id number] [place] [address]- 1493 Sep, [facility] [place] [facility] [address] [id number] [place] [address]- 5030 Sep, [facility] [place] [facility] [address] [id number] [place] [address]- 7598 Sep, [facility] [place] [facility] [address] [id number] [place] [address]- 2937 Sep, [facility] [place] [facility] [address] [id number] [place] [address]- 0811 Sep, [facility] [place] [facility] [address] [id number] [place] [address]- 1013 Sep, [facility] [place] [facility] [address] [id number] [place] [address]- 5962 Sep, [facility] [place] [facility] [address] [id number] [place] [address]- 3901 Aug, [facility] [place] [facility] [address] [id number] [place] [address]- 7558 17 Aug, 2011 [facility] [place] [facility] [address] [id number] [place] [address]- 4822 13 Aug, 2011 [facility] [place] [facility] [address] [id number] [place] [address]- 6297 10 Aug, 2011 [facility] [place] [facility] [address] [id number] [place] [address]- 6436 Jul, [facility] [address] [facility] [id number] [place] [address]- 7566 Jul, [facility] [address] [id number] [address]- 3196 Jul, [facility] [address] [id number] [address]- 6866 May, [facility] [address] [id number] [address] May, [facility] [address] [facility] [id number] [place] [address] May, [facility] [address] [id number] [address] Jan, [facility] [address] [id number] [address] Dec, IMMUNIZATIONS No Known Immunizations SOCIAL HISTORY Never Assessed REASON FOR VISIT Prior Authorization Request PLAN OF CARE VITAL SIGNS MEDICATIONS Medication Instructions Dosage Frequency Start Date End Date Duration Status Amitriptyline HCl 10 mg Orally Once a day at hs 1 tablet 28 Active Cetirizine HCl 10 mg Orally Once a day 1 tablet 24h 30 days Active Fluticasone Propionate 50 MCG/ACT Nasally Once [...]
--- OUTSIDE RECORDS SUMMARY | 2018-06-15 19:07 | XMS REPORT ---
Author Author ALEX HUTCHINSON Organization [facility] Address [address] [place] [address] Care Team Providers Care Travel Agency Manager Name Role Phone ALEX HUTCHINSON Unavailable PROBLEMS Type Condition ICD9-CM Code UGX28-AF Code Onset Dates Condition Status SNOMED Code Problem Other chronic pain G89.29 Active 46396961 Problem Pre-diabetes R73.03 Active 086622811 Problem Arthritis of both knees M19.90 Active 159769768 Problem Paresthesia of skin R20.2 Active 97109401 Problem Morbid obesity E66.01 Active 158150424 Problem No diagnosis or condition on Ramona I Z03.89 Active 0527981 Problem Insomnia due to medical condition G47.01 Active 873685597 Problem Idiopathic neuropathy G60.9 Active Problem Chronic seasonal allergic rhinitis, unspecified trigger J30.2 Active 762023856 Problem Abnormal x-ray of cervical spine R93.7 Active 190906515 Problem Vitamin D deficiency E55.9 Active 43891874 Problem Heartburn R12 Active 09750797 Problem Fibromyalgia M79.7 Active 56835921 Problem Long-term use of high-risk medication Z79.899 Active 313279412 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 71486504 Problem Depression F32.9 Active 39390068 ALLERGIES No Information ENCOUNTERS Encounter Location Date Diagnosis [facility] [address] [address] Jan, [facility] [address] [place] [address] 37338- 5096 Dec, Weight loss counseling, encounter for Z71.3 ; BMI 50.0-59.9 , adult Z68.43 ; 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 ; Abnormal x-ray of cervical spine R93.7 and Vitamin D deficiency E55.9 [facility] [id number] [place] [address] 85864- 2991 09 Dec, 2017 Encounter for weight loss counseling Z71.3 ; Fibromyalgia M79.7 and BMI 50.0-59.9, adult Z68.43 [place] [id number] [place] [address] 08178- 3412 Nov, [place] [address] 16339- 0329 Nov, Morbid obesity E66.01 ; Paresthesia of upper and lower extremities of both sides R20.2 ; Hair loss L65.9 ; Fibromyalgia M79.7 and BMI 50.0-59.9, adult Z68.43 [place] [address] 45297- 3483 Nov, Vitamin D deficiency E55.9 [place] [id number] [place] [address] 77002- 8520 07 Nov, 2017 Arthritis of both knees M19.90 and Vitamin D deficiency E55.9 [place] [address] 42111- 1048 Nov, Chronic seasonal allergic rhinitis, unspecified trigger J30.2 and Heartburn R12 [place] [id number] [place] [address] 77732- 4585 Nov, [place] [id number] [place] [address] 89164- 3210 Nov, Vitamin D deficiency E55.9 [place] [id number] [place] [address] 34221- 2504 October, Morbid obesity E66.01 ; Hemorrhoids, unspecified hemorrhoid type K64.9 ; Pre-diabetes R73.03 and BMI 50.0-59.9, adult Z68.43 [place] [id number] [place] [address] 68140- 9235 October, [place] [address] 51412- 6793 October, [place] [id number] [place] [address] 18628- 2346 October, Left arm numbness R20.0 ; Paresthesia of skin R20.2 ; Anesthesia of skin R20.0 and BMI 50.0-59.9, adult Z68.43 [place] [address] 64911- 4863 Sep, BMI 50.0-59.9, adult Z68.43 ; Fibromyalgia M79.7 ; Idiopathic neuropathy G60.9 ; Vitamin D deficiency E55.9 ; Chronic seasonal allergic rhinitis, unspecified trigger J30.2 and Long-term use of high-risk medication Z79.899 [place] [address] 71697- 7103 Aug, Fibromyalgia M79.[address] 63645- 9222 Aug, No diagnosis or condition on Ramona I Z03.89 [place] [address] 96815- 8747 Aug, Chronic seasonal allergic rhinitis, unspecified trigger J30.2 ; Fibromyalgia M79.7 ; Heartburn R12 ; Pre-diabetes R73.03 ; Change of voice R49.9 and BMI 50.0-59.9, adult Z68.43 [place] [address] 58386- 1674 Aug, Fibromyalgia M79.7 [place] [address] 68352- 2328 May, Chronic seasonal allergic rhinitis, unspecified trigger J30.2 ; Vaginal itching L29.8 and Vaginal yeast infection B37.[address] 96679- 6649 May, Arthritis of both knees M19.90 [facility] [address] 79929 -2616 May, Herpes zoster without complication B02.9 and Vaginal penny B37.3 [place] [id number] [place] [address] 33084- 4639 Mar, [place] [id number] [place] [address] 03418- 4782 Mar, Arthritis of both knees M19.90 [place] [id number] [place] [address] 16073- 4388 Mar, Arthritis of both knees M19.90 ; Elevated serum creatinine R79.89 ; Fibromyalgia M79.7 ; Idiopathic neuropathy G60.9 ; Vitamin D deficiency E55.9 ; Pre-diabetes R73.03 and Insomnia due to medical condition G47.01 [place] [id number] [place] [address] 54892- 2022 Mar, [place] [id number] [place] [address] 24124- 8978 Jan, [place] [id number] [place] [address] 83150- 5708 Jan, Pes planus of left foot M21.42 ; Plantar fasciitis of left foot M72.2 and Neuropathy G62.9 [place] [id number] [place] [address] 49241- 4965 Jan, Arthritis of both knees M19.90 ; Fibromyalgia M79.7 ; Idiopathic neuropathy G60.9 ; Vitamin D deficiency E55.9 ; Pre-diabetes R73.03 ; Insomnia due to medical condition G47.01 ; Bad odor of urine R82.90 and SI ( sacroiliac) pain M53.3 [place] [id number] [place] [address] 70795- 4396 Jan, [place] [id number] [place] [address] 64782- 1444 Jan, Elevated serum creatinine R79.89 [place] [address] 53046- 7746 Dec, [facility] [address] [place] [address] 23793- 4161 Dec, Arthritis of both knees M19.90 ; Fibromyalgia M79.7 ; Idiopathic neuropathy G60.9 ; Vitamin D deficiency E55.9 and Pre-diabetes R73.03 [facility] [id number] [place] [address] 34944- 4644 Dec, Arthritis of both knees M19.90 [place] [id number] [place] [address] 07316- 9897 October, [place] [id number] [place] [address] 46231- 7285 October, [facility] [id number] [place] [address] 28452- 1192 October, Fibromyalgia M79.7 [place] [id number] [place] [address] 81020- 6359 October, Skin tag L91.8 ; Left foot pain M79.672 and Rash and nonspecific skin eruption R21 [place] [id number] [place] [address] 53710- 0977 Aug, [place] [id number] [place] [address] 18708- 1402 Aug, Arthritis of both knees M19.90 ; Fibromyalgia M79.7 ; Idiopathic neuropathy G60.9 ; Vitamin D deficiency E55.9 ; Morbid obesity due to excess calories E66.01 and History of prediabetes Z87.898 [facility] [address], [place] [address] Aug, Blood in ear canal, right H92.21 [facility] [address] [place] [address] 49332- 8838 Jul, [facility] [id number] [place] [address] 83039- 0002 Jul, Arthritis of both knees M19.90 ; Fibromyalgia M79.7 ; Idiopathic neuropathy G60.9 and Vitamin D deficiency E55.9 [facility] [address] 56653- 5380 Jul, Fibromyalgia M79.7 [facility] [id number] [place] [address] 14564- 5127 May, Fibromyalgia M79.7 ; Idiopathic neuropathy G60.9 ; Vitamin D deficiency E55.9 ; Memory change R41.3 ; Xerostomia K11.7 and Heartburn R12 [place] [id number] [place] [address] 88299- 2900 May, Fibromyalgia M79.7 ; Idiopathic neuropathy G60.9 ; Vitamin D deficiency E55.9 and Memory change R41.3 [place] [address] 15849- 3494 May, [facility] [address] 07300- 3412 Mar, [facility] [address] 53464- 5657 Jan, [place] [address] 98869- 8950 Jan, [place] [id number] [place] [address] 08517- 3176 Jan, Dermatitis L30.9 ; Pain in right shoulder M25.511 ; Fibromyalgia M79.7 and H/O right knee surgery Z98.89 [facility] [id number] [place] [address] 92606- 8073 Dec, [place] [address] 23811- 9113 Dec, Middle ear effusion, right H65.91 ; Fibromyalgia M79.7 and Heartburn R12 [facility] [id number] [place] [address] 45632 -3571 Dec, Otalgia of right ear H92.01 and Middle ear effusion, right H65.91 [place] [id number] [place] [address] 96084- 7229 Nov, Acute pain of right knee M25.561 [place] [id number] [place] [address] 28096- 8259 Nov, [place] [id number] [place] [address] 73268- 5629 Nov, Acute pain of right knee M25.561 [place] [address] [place] [address] 79201- 0070 October, Osteoarthritis of both knees, unspecified osteoarthritis type M17.0 [place] [id number] [place] [address] 74831- 4908 October, [place] [id number] [place] [address] 95931- 4492 Sep, [place] [id number] [place] [address] 38034- 5688 Sep, Fibromyalgia M79.7 ; Chronic fatigue R53.82 ; Sinusitis J32.9 ; Bronchiolitis J21.9 ; Weight gain R63.5 and Heartburn R12 [place] [id number] [place] [address] 67499- 6639 Sep, Mild hearing loss of right ear H91.91 and Tinnitus of right ear H93.11 [place] [id number] [place] [address] 47662- 3584 Aug, [place] [id number] [place] [address] 22031- 9581 Aug, [place] [id number] [place] [address] 78310- 8555 Aug, Fibromyalgia M79.7 and Depression F32.9 [place] [id number] [place] [address] 88282- 5525 Aug, [place] [id number] [place] [address] 84950- 0035 Jul, Fibromyalgia M79.7 ; 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 ; Vitamin D deficiency E55.9 ; Long-term use of high-risk medication Z79.899 ; Heartburn R12 ; Chronic fatigue, unspecified R53.82 and Tinnitus of right ear H93.11 [place] [address] 44821- 9580 Mar, Fibromyalgia M79.7 ; 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 ; Vitamin D deficiency E55.9 ; Diarrhea R19.7 ; Long-term use of high- risk medication Z79.899 and Heartburn R12 [place] [id number] [place] [address] 59402- 9314 Mar, Fibromyalgia 729.1 ; Unspecified hereditary and idiopathic peripheral neuropathy 356.9 ; Unspecified sleep disturbance 780.50 ; Left ankle pain 719.47 and Insomnia 780.52 [place] [id number] [place] [address] 74188- 1510 Mar, Unspecified episodic mood disorder 296.90 and Anxiety state , unspecified 300.00 [place] [id number] [place] [address] 78717- 2415 Mar, Chondromalacia of right knee 717.7 [place] [id number] [place] [address] 47654- 7555 Jan, [place] [id number] [place] [address] 73020- 3891 Dec, Left foot pain 729.5 [place] [address] 39110- 7225 Sep, [place] [id number] [place] [address] 89347- 4746 Sep, [place] [address] 24621- 2842 17 Aug, 2014 [facility] [place] [facility] [address] [id number] [place] [address]- 1081 17 Aug, 2014 [facility] [place] [facility] [address] [id number] [place] [address]- 8389 16 Aug, 2014 [facility] [place] [facility] [address] [id number] [place] [address]- 9973 16 Aug, 2014 [facility] [place] [facility] [address] [id number] [place] [address]- 0868 11 Aug, 2014 [facility] [place] [facility] [address] [id number] [place] [address]- 6652 11 Aug, 2014 [facility] [place] [facility] [address] [id number] [place] [address]- 4456 Aug, [facility] [place] [facility] [address] [id number] [place] [address]- 7201 Aug, [facility] [place] [facility] [address] [id number] [place] [address]- 2770 10 Aug, 2014 [facility] [place] [facility] [address] [id number] [place] [address]- 2132 10 Aug, 2014 [facility] [place] [facility] [address] [id number] [place] [address]- 1595 05 Aug, 2014 [facility] [place] [facility] [address] [id number] [place] [address]- 3976 Aug, [facility] [place] [facility] [address] [id number] [place] [address]- 7131 Aug, [facility] [place] [facility] [address] [id number] [place] [address]- 0172 Aug, [facility] [place] [facility] [address] [id number] [place] 0855 Aug, [facility] [place] [facility] [address] [id number] [place] [address]- 7388 Aug, [facility] [place] [facility] [address] [id number] [place] [address] 2546 Jul, [facility] [place] [facility] [address] [id number] [place] [address]- 6909 Jul, [facility] [place] [facility] [address] [id number] [place] [address]- 2546 Jul, [facility] [place] [facility] [address] [id number] [place] [address]- 8966 Jul, [facility] [place] [facility] [address] [id number] [place] [address]- 5441 May, [facility] [place] [facility] [address] [id number] [place] [address]- 8685 May, [facility] [place] [facility] [address] [id number] [place] [address]- 9212 May, [facility] [place] [facility] [address] [id number] [place] [address]- 9984 Mar, [facility] [place] [facility] [address] [id number] [place] [address]- 0640 Mar, [facility] [place] [facility] [address] [id number] [place] [address]- 7911 Mar, [facility] [place] [facility] [address] [id number] [place] [address]- 3259 Mar, [facility] [place] [facility] [address] [id number] [place] [address]- 8005 Dec, [facility] [place] [facility] [address] [id number] [place] [address]- 4946 Dec, [facility] [place] [facility] [address] [id number] [place] [address]- 4851 Nov, [facility] [place] [facility] [address] [id number] [place] [address]- 2546 Nov, [facility] [place] [facility] [address] [id number] [place] [address]- 4055 Nov, [facility] [place] [facility] [address] [id number] [place] [address]- 6470 Nov, [facility] [place] [facility] [address] [id number] [place] [address]- 6222 Nov, [facility] [place] [facility] [address] [id number] [place] [address]- 8900 Nov, [facility] [place] [facility] [address] [id number] [place] [address]- 2220 October, [facility] [place] [facility] [address] [id number] [place] [address]- 4518 October, [facility] [place] [facility] [address] [id number] [place] [address]- 7864 October, [facility] [place] [facility] [address] [id number] [place] [address]- 9756 October, [facility] [place] [facility] [address] [id number] [place] [address]- 9908 October, [facility] [place] [facility] [address] [id number] [place] [address]- 9851 October, [facility] [place] [facility] [address] [id number] [place] [address]- 2153 October, [facility] [place] [facility] [address] [id number] [place] [address]- 7263 October, [facility] [place] [facility] [address] [id number] [place] [address]- 7318 October, [facility] [place] [facility] [address] [id number] [place] [address]- 8726 October, [facility] [place] [facility] [address] [id number] [place] [address]- 3268 October, [facility] [place] [facility] [address] [id number] [place] [address]- 4144 October, [facility] [place] [facility] [address] [id number] [place] [address]- 8928 October, [facility] [place] [facility] [address] [id number] [place] [address]- 7677 Sep, [facility] [place] [facility] [address] [id number] [place] [address]- 2609 Sep, [facility] [place] [facility] [address] [id number] [place] [address]- 8093 Aug, [facility] [place] [facility] [address] [id number] [place] [address]- 2928 Aug, [facility] [place] [facility] [address] [id number] [place] [address]- 2603 Aug, [facility] [place] [facility] [address] [id number] [place] [address]- 8626 Aug, [facility] [place] [facility] [address] [id number] [place] [address]- 0778 Aug, [facility] [place] [facility] [address] [id number] [place] [address]- 2454 Aug, [facility] [place] [facility] [address] [id number] [place] [address]- 1201 Aug, [facility] [place] [facility] [address] [facility] [id number] [place] [address]- 3351 Aug, [facility] [place] [facility] [address] [id number] [place] [address]- 8179 Aug, [facility] [place] [facility] [address] [id number] [place] [address]- 2202 Aug, [facility] [place] [facility] [address] [id number] [place] [address]- 6144 Aug, [facility] [place] [facility] [address] [id number] [place] [address]- 3020 Aug, [facility] [place] [facility] [address] [id number] [place] [address]- 3718 Jul, [facility] [place] [facility] [address] [id number] [place] [address]- 7420 Jul, [facility] [address] [id number] [place] [address]- 7692 Jul, [facility] [address] [id number] [place] [address]- 8005 Jul, [facility] [place] [facility] [address] [id number] [place] [address]- 7185 Mar, [facility] [address] [id number] [place] [address]- 1495 Mar, [facility] [place] [facility] [address] [id number] [place] [address]- 8985 Jan, [facility] [address] [id number] [place] [address]- 9057 Sep, [facility] [address] [id number] [place] [address]- 9407 Aug, [facility] [address] [id number] [place] [address]- 8508 Aug, [facility] [address] [id number] [place] [address]- 6724 Aug, [facility] [address] [id number] [place] [address]- 3307 Aug, [facility] [place] [facility] [address] [id number] [address]- 0887 Aug, [facility] [place] [facility] [address] [id number] [place] [address]- 5223 October, [facility] [place] [facility] [address] [id number] [place] [address]- 0546 October, [facility] [place] [facility] [address] [id number] [place] [address]- 7015 Sep, [facility] [place] [facility] [address] [id number] [place] [address]- 2169 26 Sep, 2011 [facility] [address] [id number] [place] [address]- 6896 25 Sep, 2011 [facility] [place] [facility] [address] [id number] [place] [address]- 2166 19 Sep, 2011 [facility] [address] [id number] [place] [address]- 3386 18 Sep, 2011 [facility] [place] [facility] [address] [id number] [place] [address]- 4938 11 Sep, 2011 [facility] [address] [id number] [place] [address]- 3072 Sep, [facility] [address] [id number] [place] [address]- 6011 09 Sep, 2011 [facility] [address] [id number] [place] [address]- 9599 07 Sep, 2011 [facility] [address] [id number] [place] [address]- 1299 06 Sep, 2011 [facility] [address] [id number] [place] [address]- 0483 07 Aug, 2011 [facility] [address] [id number] [place] [address] 17 Aug, 2011 [facility] [place] [facility] [address] [id number] [place] [address] 13 Aug, 2011 [facility] [place] [facility] [address] [id number] [place] [address] 10 Aug, 2011 [facility] [place] [facility] [address] [id number] [place] [address] Jul, [facility] [place] [facility] [address] [id number] [place] [address] Jul, [facility] [place] [facility] [address] [id number] [place] [address] Jul, [facility] [address] [facility] [id number] [place] [address] May, [facility] [address] [facility] [id number], [place] [address] May, [facility] [address] [facility] [id number], [place] [address] May, [facility] [address] [facility] [id number], [place] [address] Jan, [facility] [address] [facility] [id number], [place] [address] Dec, IMMUNIZATIONS No Known Immunizations SOCIAL HISTORY Never Assessed REASON FOR VISIT Lab (walk-in) PLAN OF CARE VITAL SIGNS MEDICATIONS Unknown Medications RESULTS No Results PROCEDURES Procedure Date Ordered Result Body Site LAB NOT BILLED BY [facility] December 05, 2017 INSTRUCTIONS MEDICATIONS ADMINISTERED No Known Medications [...] unspecified trigger Medical History History of anemia Surgical History tubal ligation 2004 Surgical History right knee surgery 01/18/2016 Surgical History tooth removal 06/16/17 Surgical History Biopsy of Uterus 06/19/17 Hospitalization History Surgeries only Hospitalization History ER chest pain 05/2017
--- OUTSIDE RECORDS SUMMARY | 2018-06-15 19:07 | XMS REPORT ---
Author Author ALEX HUTCHINSON Organization [facility] Address [address] [place] [address] Care Team Providers Care [employer] Name Role Phone ALEX HUTCHINSON Unavailable PROBLEMS Type Condition ICD9-CM Code [id number] Code Onset Dates Condition Status SNOMED Code Problem Other chronic pain G89.29 Active 69347729 Problem Pre-diabetes R73.03 Active 715096751 Problem Arthritis of both knees M19.90 Active 862717042 Problem Paresthesia of skin R20.2 Active 57239078 Problem Morbid obesity E66.01 Active 359570675 Problem No diagnosis or condition on Price I Z03.89 Active 6856936 Problem Insomnia due to medical condition G47.01 Active 373048155 Problem Idiopathic neuropathy G60.9 Active Problem Chronic seasonal allergic rhinitis, unspecified trigger J30.2 Active 456039679 Problem Abnormal x-ray of cervical spine R93.7 Active 835905271 Problem Vitamin D deficiency E55.9 Active 25280611 Problem Heartburn R12 Active 59723183 Problem Fibromyalgia M79.7 Active 07548756 Problem Long-term use of high-risk medication Z79.899 Active 003549211 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 91526682 Problem Depression F32.9 Active 73539541 ALLERGIES No Information ENCOUNTERS Encounter Location Date Diagnosis [facility] [address], [place] [address] Jan, [facility] [id number] [place] [address] 52445- 4210 Dec, Weight loss counseling, encounter for Z71.3 ; BMI 50.0-59.9 , adult Z68.43 ; 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43 [place] [address] 35226- 1264 Nov, Vitamin D deficiency E55.9 [place] [id number] [place] [address] 78333- 6749 07 Nov, 2017 Arthritis of both knees M19.90 and Vitamin D deficiency E55.9 [place] [address] 71913- 6418 Nov, Chronic seasonal allergic rhinitis, unspecified trigger J30.2 and Heartburn R12 [place] [id number] [place] [address] 08791- 9064 Nov, [place] [id number] [place] [address] 26331- 2265 Nov, Vitamin D deficiency E55.9 [place] [address] [id number] [place] [address] 33443- 9698 October, Morbid obesity E66.01 ; Hemorrhoids, unspecified hemorrhoid type K64.9 ; Pre-diabetes R73.03 and BMI 50.0-59.9, adult Z68.43 [place] [address] [id number] [place] [address] 14318- 2374 October, [place] [address] 46405- 0272 October, [place] [id number] [place] [address] 02439- 0204 October, Left arm numbness R20.0 ; Paresthesia of skin R20.2 ; Anesthesia of skin R20.0 and BMI 50.0-59.9, adult Z68.43 [place] [address] 20341- 2613 Sep, BMI 50.0-59.9, adult Z68.43 ; Fibromyalgia M79.7 ; Idiopathic neuropathy G60.9 ; Vitamin D deficiency E55.9 ; Chronic seasonal allergic rhinitis, unspecified trigger J30.2 and Long-term use of high-risk medication Z79.899 [place] [address] 89552- 5740 Aug, Fibromyalgia M79.[address] 19635- 4143 Aug, No diagnosis or condition on Price I Z03.89 [place] [address] 29070- 7331 Aug, Chronic seasonal allergic rhinitis, unspecified trigger J30.2 ; Fibromyalgia M79.7 ; Heartburn R12 ; Pre-diabetes R73.03 ; Change of voice R49.9 and BMI 50.0-59.9, adult Z68.43 [place] [address] 53097- 6113 Aug, Fibromyalgia M79.7 [place] [address] 83407- 4646 May, Chronic seasonal allergic rhinitis, unspecified trigger J30.2 ; Vaginal itching L29.8 and Vaginal yeast infection B37.[address] 09739- 9276 May, Arthritis of both knees M19.90 [facility] [address] 78072 -2085 May, Herpes zoster without complication B02.9 and Vaginal penny B37.3 [place] [id number] [place] [address] 32165- 9101 Mar, [place] [id number] [place] [address] 92460- 4675 Mar, Arthritis of both knees M19.90 [place] [id number] [place] [address] 28431- 7161 Mar, Arthritis of both knees M19.90 ; Elevated serum creatinine R79.89 ; Fibromyalgia M79.7 ; Idiopathic neuropathy G60.9 ; Vitamin D deficiency E55.9 ; Pre-diabetes R73.03 and Insomnia due to medical condition G47.01 [place] [id number] [place] [address] 95243- 9136 Mar, [place] [id number] [place] [address] 28577- 3876 Jan, [place] [id number] [place] [address] 27749- 1942 Jan, Pes planus of left foot M21.42 ; Plantar fasciitis of left foot M72.2 and Neuropathy G62.9 [place] [id number] [place] [address] 82564- 9177 Jan, Arthritis of both knees M19.90 ; Fibromyalgia M79.7 ; Idiopathic neuropathy G60.9 ; Vitamin D deficiency E55.9 ; Pre-diabetes R73.03 ; Insomnia due to medical condition G47.01 ; Bad odor of urine R82.90 and SI ( sacroiliac) pain M53.3 [place] [id number] [place] [address] 93606- 6088 Jan, [place] [id number] [place] [address] 71041- 2729 Jan, Elevated serum creatinine R79.89 [place] [address] 14867- 8488 Dec, [facility] [id number] [place] [address] 32381- 8185 Dec, Arthritis of both knees M19.90 ; Fibromyalgia M79.7 ; Idiopathic neuropathy G60.9 ; Vitamin D deficiency E55.9 and Pre-diabetes R73.03 [facility] [id number] [place] [address] 76242- 3508 Dec, Arthritis of both knees M19.90 [place] [id number] [place] [address] 13371- 0631 October, [place] [address] [id number] [place] [address] 85390- 6339 October, [facility] [id number] [place] [address] 42314- 3625 October, Fibromyalgia M79.7 [place] [id number] [place] [address] 15122- 7852 October, Skin tag L91.8 ; Left foot pain M79.672 and Rash and nonspecific skin eruption R21 [place] [address] [address] [id number] [place] [address] 43071- 6768 Aug, [place] [address] [address] [id number] [place] [address] 68323- 7288 Aug, Arthritis of both knees M19.90 ; Fibromyalgia M79.7 ; Idiopathic neuropathy G60.9 ; Vitamin D deficiency E55.9 ; Morbid obesity due to excess calories E66.01 and History of prediabetes Z87.898 [facility] [address], [place] [address] Aug, Blood in ear canal, right H92.21 [facility] [id number] [place] [address] 99949- 8628 Jul, [facility] [id number] [place] [address] 53996- 3308 Jul, Arthritis of both knees M19.90 ; Fibromyalgia M79.7 ; Idiopathic neuropathy G60.9 and Vitamin D deficiency E55.9 [facility] [address] 04010- 8078 Jul, Fibromyalgia M79.7 [facility] [id number] [place] [address] 71859- 1508 May, Fibromyalgia M79.7 ; Idiopathic neuropathy G60.9 ; Vitamin D deficiency E55.9 ; Memory change R41.3 ; Xerostomia K11.7 and Heartburn R12 [place] [id number] [place] [address] 25159- 2002 May, Fibromyalgia M79.7 ; Idiopathic neuropathy G60.9 ; Vitamin D deficiency E55.9 and Memory change R41.3 [place] [address] 68504- 7838 May, [facility] [address] 63780- 0851 Mar, [facility] [address] 40116- 0345 Jan, [place] [address] 65953- 5939 Jan, [place] [address] [address] [id number] [place] [address] 84135- 2913 Jan, Dermatitis L30.9 ; Pain in right shoulder M25.511 ; Fibromyalgia M79.7 and H/O right knee surgery Z98.89 [facility] [id number] [place] [address] 44555- 7090 Dec, [place] [address] 89727- 6723 Dec, Middle ear effusion, right H65.91 ; Fibromyalgia M79.7 and Heartburn R12 [facility] [id number] [place] [address] 10372 -6331 Dec, Otalgia of right ear H92.01 and Middle ear effusion, right H65.91 [place] [address] [id number] [place] [address] 76384- 9541 Nov, Acute pain of right knee M25.561 [place] [address] [id number] [place] [address] 98596- 6510 Nov, [place] [address] [id number] [place] [address] 75489- 6032 Nov, Acute pain of right knee M25.561 [place] [id number] [place] [address] 76338- 4109 October, Osteoarthritis of both knees, unspecified osteoarthritis type M17.0 [place] [id number] [place] [address] 00292- 2189 October, [place] [id number] [place] [address] 87293- 9967 Sep, [place] [address] [id number] [place] [address] 90386- 8110 Sep, Fibromyalgia M79.7 ; Chronic fatigue R53.82 ; Sinusitis J32.9 ; Bronchiolitis J21.9 ; Weight gain R63.5 and Heartburn R12 [place] [address] [id number] [place] [address] 62800- 5998 Sep, Mild hearing loss of right ear H91.91 and Tinnitus of right ear H93.11 [place] [address] [address] [id number] [place] [address] 97013- 5420 Aug, [place] [address] [id number] [place] [address] 00679- 6334 Aug, [place] [address] [id number] [place] [address] 78135- 6319 Aug, Fibromyalgia M79.7 and Depression F32.9 [place] [address] [id number] [place] [address] 77749- 4714 Aug, [place] [address] [id number] [place] [address] 97910- 4483 Jul, Fibromyalgia M79.7 ; 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 ; Vitamin D deficiency E55.9 ; Long-term use of high-risk medication Z79.899 ; Heartburn R12 ; Chronic fatigue, unspecified R53.82 and Tinnitus of right ear H93.11 [place] [address] 48984- 9968 Mar, Fibromyalgia M79.7 ; 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 ; Vitamin D deficiency E55.9 ; Diarrhea R19.7 ; Long-term use of high- risk medication Z79.899 and Heartburn R12 [place] [address] [id number] [place] [address] 70111- 2015 Mar, Fibromyalgia 729.1 ; Unspecified hereditary and idiopathic peripheral neuropathy 356.9 ; Unspecified sleep disturbance 780.50 ; Left ankle pain 719.47 and Insomnia 780.52 [place] [address] [id number] [place] [address] 15533- 0101 Mar, Unspecified episodic mood disorder 296.90 and Anxiety state , unspecified 300.00 [place] [address] [id number] [place] [address] 03018- 1263 Mar, Chondromalacia of right knee 717.7 [place] [address] [id number] [place] [address] 11242- 6480 Jan, [place] [address] [place] [id number] [place] [address] 43571- 4770 Dec, Left foot pain 729.5 [place] [address] 91637- 8404 Sep, [place] [address] [id number] [place] [address] 62752- 9939 Sep, [place] [address] 68115- 5642 17 Aug, 2014 [facility] [place] [facility] [address] [id number] [place] [address]- 3157 17 Aug, 2014 [facility] [place] [facility] [address] [id number] [place] [address]- 4035 16 Aug, 2014 [facility] [place] [facility] [address] [id number] [place] [address]- 1071 16 Aug, 2014 [facility] [place] [facility] [address] [id number] [place] [address]- 6971 11 Aug, 2014 [facility] [place] [facility] [address] [id number] [place] [address]- 4550 11 Aug, 2014 [facility] [place] [facility] [address] [id number] [place] [address]- 1445 Aug, [facility] [place] [facility] [address] [id number] [place] [address]- 7562 Aug, [facility] [place] [facility] [address] [id number] [place] [address]- 8313 10 Aug, 2014 [facility] [place] [facility] [address] [id number] [place] [address]- 3006 10 Aug, 2014 [facility] [place] [facility] [address] [id number] [place] [address]- 3528 05 Aug, 2014 [facility] [place] [facility] [address] [id number] [place] [address]- 8433 Aug, [facility] [place] [facility] [address] [id number] [place] [address]- 1199 Aug, [facility] [place] [facility] [address] [id number] [place] [address]- 2328 Aug, [facility] [place] [facility] [address] [id number] [place] 2601 Aug, [facility] [place] [facility] [address] [id number] [place] [address]- 5288 Aug, [facility] [place] [facility] [address] [id number] [place] [address] 2546 Jul, [facility] [place] [facility] [address] [id number] [place] [address]- 9633 Jul, [facility] [place] [facility] [address] [id number] [place] [address]- 2546 Jul, [facility] [place] [facility] [address] [id number] [place] [address]- 3596 Jul, [facility] [place] [facility] [address] [id number] [place] [address]- 7243 May, [facility] [place] [facility] [address] [id number] [place] [address]- 4582 May, [facility] [place] [facility] [address] [id number] [place] [address]- 3058 May, [facility] [place] [facility] [address] [id number] [place] [address]- 2894 Mar, [facility] [place] [facility] [address] [id number] [place] [address]- 7260 Mar, [facility] [place] [facility] [address] [id number] [place] [address]- 6672 Mar, [facility] [place] [facility] [address] [id number] [place] [address]- 7252 Mar, [facility] [place] [facility] [address] [id number] [place] [address]- 8350 Dec, [facility] [place] [facility] [address] [id number] [place] [address]- 7360 Dec, [facility] [place] [facility] [address] [id number] [place] [address]- 1708 Nov, [facility] [place] [facility] [address] [id number] [place] [address]- 2546 Nov, [facility] [place] [facility] [address] [id number] [place] [address]- 3164 Nov, [facility] [place] [facility] [address] [id number] [place] [address]- 8711 Nov, [facility] [place] [facility] [address] [id number] [place] [address]- 2001 Nov, [facility] [place] [facility] [address] [id number] [place] [address]- 4399 Nov, [facility] [place] [facility] [address] [id number] [place] [address]- 4123 October, [facility] [place] [facility] [address] [id number] [place] [address]- 3310 October, [facility] [place] [facility] [address] [id number] [place] [address]- 0816 October, [facility] [place] [facility] [address] [id number] [place] [address]- 2114 October, [facility] [place] [facility] [address] [id number] [place] [address]- 6952 October, [facility] [place] [facility] [address] [id number] [place] [address]- 2621 October, [facility] [place] [facility] [address] [id number] [place] [address]- 8796 October, [facility] [place] [facility] [address] [id number] [place] [address]- 6198 October, [facility] [place] [facility] [address] [id number] [place] [address]- 6172 October, [facility] [place] [facility] [address] [id number] [place] [address]- 0883 October, [facility] [place] [facility] [address] [id number] [place] [address]- 5158 October, [facility] [place] [facility] [address] [id number] [place] [address]- 2367 October, [facility] [place] [facility] [address] [id number] [place] [address]- 8622 October, [facility] [place] [facility] [address] [id number] [place] [address]- 3761 Sep, [facility] [place] [facility] [address] [id number] [place] [address]- 1127 Sep, [facility] [place] [facility] [address] [id number] [place] [address]- 9561 Aug, [facility] [place] [facility] [address] [id number] [place] [address]- 7304 Aug, [facility] [place] [facility] [address] [id number] [place] [address]- 6648 Aug, [facility] [place] [facility] [address] [id number] [place] [address]- 1309 Aug, [facility] [place] [facility] [address] [id number] [place] [address]- 9275 Aug, [facility] [place] [facility] [address] [id number] [place] [address]- 4654 Aug, [facility] [place] [facility] [address] [id number] [place] [address]- 3412 Aug, [facility] [place] [facility] [address] [facility] [id number] [place] [address]- 1154 Aug, [facility] [place] [facility] [address] [id number] [place] [address]- 2274 Aug, [facility] [place] [facility] [address] [id number] [place] [address]- 6831 Aug, [facility] [place] [facility] [address] [id number] [place] [address]- 0106 Aug, [facility] [place] [facility] [address] [id number] [place] [address]- 2576 Aug, [facility] [place] [facility] [address] [id number] [place] [address]- 3850 Jul, [facility] [place] [facility] [address] [id number] [place] [address]- 0136 Jul, [facility] [address] [id number] [place] [address]- 8898 Jul, [facility] [address] [id number] [place] [address]- 6895 Jul, [facility] [place] [facility] [address] [id number] [place] [address]- 4887 Mar, [facility] [address] [id number] [place] [address]- 8550 Mar, [facility] [place] [facility] [address] [id number] [place] [address]- 6713 Jan, [facility] [address] [id number] [place] [address]- 6916 Sep, [facility] [address] [id number] [place] [address]- 1491 Aug, [facility] [address] [id number] [place] [address]- 8566 Aug, [facility] [address] [id number] [place] [address]- 5438 Aug, [facility] [address] [id number] [place] [address]- 2410 Aug, [facility] [place] [facility] [address] [id number] [address]- 4626 Aug, [facility] [place] [facility] [address] [id number] [place] [address]- 2651 October, [facility] [place] [facility] [address] [id number] [place] [address]- 4246 October, [facility] [place] [facility] [address] [id number] [place] [address]- 2779 Sep, [facility] [place] [facility] [address] [id number] [place] [address]- 7269 26 Sep, 2011 [facility] [address] [id number] [place] [address]- 0270 25 Sep, 2011 [facility] [place] [facility] [address] [id number] [place] [address]- 2266 19 Sep, 2011 [facility] [address] [id number] [place] [address]- 0446 18 Sep, 2011 [facility] [place] [facility] [address] [id number] [place] [address]- 6455 11 Sep, 2011 [facility] [address] [id number] [place] [address] Sep, [facility] [address] [id number] [place] [address] 09 Sep, 2011 [facility] [address] [id number] [place] [address] 07 Sep, 2011 [facility] [address] [id number] [place] [address] 06 Sep, 2011 [facility] [address] [id number] [place] [address] 07 Aug, 2011 [facility] [address] [id number] [place] [address] 17 Aug, 2011 [facility] [place] [facility] [address] [id number] [place] [address] 13 Aug, 2011 [facility] [place] [facility] [address] [id number] [place] [address] 10 Aug, 2011 [facility] [place] [facility] [address] [id number] [place] [address] Jul, [facility] [place] [facility] [address] [id number] [place] [address] Jul, [facility] [place] [facility] [address] [id number] [place] [address] Jul, [facility] [address] [facility] [id number] [place] [address] May, [facility] [address] [facility] [id number] [address] May, [facility] [address] [facility] [id number] [address] May, [facility] [address] [facility] [id number], [place] [address] Jan, [facility] [address] [facility] [id number] [address] Dec, IMMUNIZATIONS No Known Immunizations SOCIAL HISTORY Never Assessed REASON FOR VISIT Requests return call PLAN OF CARE VITAL SIGNS MEDICATIONS Unknown [...]
--- OUTSIDE RECORDS SUMMARY | 2018-06-15 19:08 | XMS REPORT ---
Author Author ALEX HUTCHINSON [facility] Address [address] [place] [address] Care Team Providers Care Sequins Slinger Name Role Phone ALEX HUTCHINSON Unavailable PROBLEMS Type Condition ICD9-CM Code GMV94-DN Code Onset Dates Condition Status SNOMED Code Problem Other chronic pain G89.29 Active 03972902 Problem Pre-diabetes R73.03 Active 688274178 Problem Arthritis of both knees M19.90 Active 198754826 Problem Paresthesia of skin R20.2 Active 12488187 Problem Morbid obesity E66.01 Active 972195221 Problem No diagnosis or condition on [place] I Z03.89 Active 7356030 Problem Insomnia due to medical condition G47.01 Active 167467099 Problem Idiopathic neuropathy G60.9 Active Problem Chronic seasonal allergic rhinitis, unspecified trigger J30.2 Active 802978295 Problem Abnormal x-ray of cervical spine R93.7 Active 815813628 Problem Vitamin D deficiency E55.9 Active 56023111 Problem Heartburn R12 Active 95214319 Problem Fibromyalgia M79.7 Active 86477190 Problem Long-term use of high-risk medication Z79.899 Active 200458521 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 22241913 Problem Depression F32.9 Active 06532463 ALLERGIES Substance Reaction Event Type Date Status Neurontin Unknown Drug Allergy October, Active Naproxen Unknown Drug Allergy October, Active Lyrica Nausea, diarrhea, headaches Drug Allergy October, Active Effexor Unknown Drug Allergy October, Active Demerol Unknown Drug Allergy October, Active Cymbalta 30 Mg Capsule, Delayed Release(e.c.) Unknown Non Drug Allergy October, Active ENCOUNTERS Encounter Location Date Diagnosis [facility] [address] [facility] [id number] [address] Jan, [facility] [address] [place] [id number] [place] [address] 9[address]65- 1676 Dec, Weight loss counseling, encounter for Z71.3 ; BMI 50.0-59.9 , adult Z68.43 ; 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 ; Abnormal x-ray of cervical spine R93.7 and Vitamin D deficiency E55.9 [place] [address] [address]- [address] Dec, Encounter for weight loss counseling Z71.3 ; Fibromyalgia M79.7 and BMI 50.0-59.9, adult Z68.43 [place] [address] 8[address]84- 6934 Nov, [place] [address] 83[address]- 5415 Nov, Morbid obesity E66.01 ; Paresthesia of upper and lower extremities of both sides R20.2 ; Hair loss L65.9 ; Fibromyalgia M79.7 and BMI 50.0-59.9, adult Z68.43 [place] [address] 89977- 0131 Nov, Vitamin D deficiency E55.9 [place] [address] 29085- 8097 Nov, Arthritis of both knees M19.90 and Vitamin D deficiency E55.9 [place] [address] 84478- 1181 Nov, Chronic seasonal allergic rhinitis, unspecified trigger J30.2 and Heartburn R12 [place] [address] [place] [id number] [place] [address] 25302- 9579 Nov, [place] [address] 51862- 2895 Nov, Vitamin D deficiency E55.9 [place] [address] 75529- 7458 October, Morbid obesity E66.01 ; Hemorrhoids, unspecified hemorrhoid type K64.9 ; Pre-diabetes R73.03 and BMI 50.0-59.9, adult Z68.43 [place] [address] 13050- 3331 October, [place] [address] 62761- 2865 October, [place] [address] 95691- 0982 October, Left arm numbness R20.0 ; Paresthesia of skin R20.2 ; Anesthesia of skin R20.0 and BMI 50.0-59.9, adult Z68.43 [place] [address] 42867- 1069 Sep, BMI 50.0-59.9, adult Z68.43 ; Fibromyalgia M79.7 ; Idiopathic neuropathy G60.9 ; Vitamin D deficiency E55.9 ; Chronic seasonal allergic rhinitis, unspecified trigger J30.2 and Long-term use of high-risk medication Z79.899 [place] [address] 07479- 5692 Aug, Fibromyalgia M79.7 [place] [address] 33710- 2332 Aug, No diagnosis or condition on [place] I Z03.89 [place] [address] 46260- 7687 Aug, Chronic seasonal allergic rhinitis, unspecified trigger J30.2 ; Fibromyalgia M79.7 ; Heartburn R12 ; Pre-diabetes R73.03 ; Change of voice R49.9 and BMI 50.0-59.9, adult Z68.43 [place] [address] 86030- 0690 Aug, Fibromyalgia M79.7 [place] [address] 31109- 8542 May, Chronic seasonal allergic rhinitis, unspecified trigger J30.2 ; Vaginal itching L29.8 and Vaginal yeast infection B37.3 [facility] [address] 84014- 3654 May, Arthritis of both knees M19.90 [facility] [id number] [place] [address] 77168 -9597 May, Herpes zoster without complication B02.9 and Vaginal penny B37.3 [facility] [id number] [place] [address] 43783- 3952 Mar, [facility] [address] 32806- 7907 Mar, Arthritis of both knees M19.90 [place] [address] 72775- 3820 Mar, Arthritis of both knees M19.90 ; Elevated serum creatinine R79.89 ; Fibromyalgia M79.7 ; Idiopathic neuropathy G60.9 ; Vitamin D deficiency E55.9 ; Pre-diabetes R73.03 and Insomnia due to medical condition G47.01 [facility] [id number] [place] [address] 94252- 4312 Mar, [place] [id number] [place] [address] 47243- 7556 Jan, [place] [address] 98208- 0799 Jan, Pes planus of left foot M21.42 ; Plantar fasciitis of left foot M72.2 and Neuropathy G62.9 [facility] [id number] [place] [address] 54850- 5822 Jan, Arthritis of both knees M19.90 ; Fibromyalgia M79.7 ; Idiopathic neuropathy G60.9 ; Vitamin D deficiency E55.9 ; Pre-diabetes R73.03 ; Insomnia due to medical condition G47.01 ; Bad odor of urine R82.90 and SI ( sacroiliac) pain M53.3 [place] [address] [address] Jan, [place] [address] [place] [id number] [place] [address] 77120- 3481 Jan, Elevated serum creatinine R79.89 [facility] [id number] [place] [address] 86319- 8978 Dec, [place] [address] [address] [id number] [place] [address] 72679- 8320 Dec, Arthritis of both knees M19.90 ; Fibromyalgia M79.7 ; Idiopathic neuropathy G60.9 ; Vitamin D deficiency E55.9 and Pre-diabetes R73.03 [place] [address] [address] [id number] [place] [address] 19560- 7663 Dec, Arthritis of both knees M19.90 [place] [address] [place] [address] [id number] [place] [address] 70029- 5603 October, [place] [address] [place] [address] [id number] [place] [address] 13064- 1653 October, [place] [address] [place] [address] [id number] [place] [address] 31126- 6676 October, Fibromyalgia M79.7 [facility] [address] [id number] [place] [address] 19657- 1765 October, Skin tag L91.8 ; Left foot pain M79.672 and Rash and nonspecific skin eruption R21 [place] [address] [place] [address] 06395- 4318 Aug, [place] [address] [place] [id number] [place] [address] 47555- 7815 Aug, Arthritis of both knees M19.90 ; Fibromyalgia M79.7 ; Idiopathic neuropathy G60.9 ; Vitamin D deficiency E55.9 ; Morbid obesity due to excess calories E66.01 and History of prediabetes Z87.898 [facility] [address] [place] [address] 08510 -8661 Aug, Blood in ear canal, right H92.21 [place] [address] [place] [id number] [place] [address] 24742- 7398 Jul, [place] [address] [place] [id number] [place] [address] 12789- 2549 Jul, Arthritis of both knees M19.90 ; Fibromyalgia M79.7 ; Idiopathic neuropathy G60.9 and Vitamin D deficiency E55.9 [place] [address] [address] [id number] [place] [address] 07801- 0479 Jul, Fibromyalgia M79.7 [place] [address] 67203- 3134 May, Fibromyalgia M79.7 ; Idiopathic neuropathy G60.9 ; Vitamin D deficiency E55.9 ; Memory change R41.3 ; Xerostomia K11.7 and Heartburn R12 [place] [address] [address] [id number] [place] [address] 47942- 2641 May, Fibromyalgia M79.7 ; Idiopathic neuropathy G60.9 ; Vitamin D deficiency E55.9 and Memory change R41.3 [place] [address] [address] [id number] [place] [address] 33810- 6164 May, [place] [address] [address] [id number] [place] [address] 62920- 4640 Mar, [place] [address] [place] [address] [id number] [place] [address] 35472- 7492 Jan, [place] [address] [id number] [place] [address] 74065- 6321 Jan, [place] [address] [place] [address] [id number] [place] [address] 57633- 3968 Jan, Dermatitis L30.9 ; Pain in right shoulder M25.511 ; Fibromyalgia M79.7 and H/O right knee surgery Z98.89 [place] [address] [address] [id number] [place] [address] 47355- 6777 Dec, [facility] [address] [place] [address] 02936- 8479 Dec, Middle ear effusion, right H65.91 ; Fibromyalgia M79.7 and Heartburn R12 [facility] [address] [address] Dec, Otalgia of right ear H92.01 and Middle ear effusion, right H65.91 [facility] [id number] [place] [address] 87674- 1954 Nov, Acute pain of right knee M25.561 [place] [address] [id number] [place] [address] 42141- 5303 Nov, [place] [address] [address] [id number] [place] [address] 03708- 2152 Nov, Acute pain of right knee M25.561 [facility] [address] [id number] [place] [address] 88680- 3390 October, Osteoarthritis of both knees, unspecified osteoarthritis type M17.0 [facility] [address] [id number] [place] [address] 30061- 3236 October, [place] [address] [place] [address] [id number] [place] [address] 10367- 7079 Sep, [facility] [id number] [place] [address] 02226- 1132 Sep, Fibromyalgia M79.7 ; Chronic fatigue R53.82 ; Sinusitis J32.9 ; Bronchiolitis J21.9 ; Weight gain R63.5 and Heartburn R12 [facility] [address] [id number] [place] [address] 56017- 1639 Sep, Mild hearing loss of right ear H91.91 and Tinnitus of right ear H93.11 [facility] [id number] [place] [address] 74115- 2140 Aug, [facility] [address] [place] [id number] [place] [address]- 4834 Aug, [place] [address] [place] [address] [id number] [place] [address] 85138- 8418 Aug, Fibromyalgia M79.7 and Depression F32.9 [place] [address] [address] [id number] [place] [address] 42981- 7380 Aug, [place] [address] 33957- 6520 Jul, Fibromyalgia M79.7 ; 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 ; Vitamin D deficiency E55.9 ; Long-term use of high-risk medication Z79.899 ; Heartburn R12 ; Chronic fatigue, unspecified R53.82 and Tinnitus of right ear H93.11 [place] [address] [id number] [place] [address] 49140- 9579 Mar, Fibromyalgia M79.7 ; 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 ; Vitamin D deficiency E55.9 ; Diarrhea R19.7 ; Long-term use of high- risk medication Z79.899 and Heartburn R12 [place] [address] 27605- 2324 Mar, Fibromyalgia 729.1 ; Unspecified hereditary and idiopathic peripheral neuropathy 356.9 ; Unspecified sleep disturbance 780.50 ; Left ankle pain 719.47 and Insomnia 780.52 [place] [address] [address] [id number] [place] [address] 37322- 6277 Mar, Unspecified episodic mood disorder 296.90 and Anxiety state , unspecified 300.00 [place] [address] [place] [id number] [place] [address] 59295- 2218 Mar, Chondromalacia of right knee 717.7 [place] [id number] [place] [address] 43989- 0991 Jan, [place] [address] [place] [address] [id number] [place] [address] 88851- 7404 Dec, Left foot pain 729.5 [facility] [place] [facility] [address] [id number] [place] [address]- 1476 14 Sep, 2014 [facility] [place] [facility] [address] [id number] [place] [address]- 4426 13 Sep, 2014 [facility] [place] [facility] [address] [id number] [place] [address]- 5966 17 Aug, 2014 [facility] [place] [facility] [address] [id number] [place] [address]- 9170 17 Aug, 2014 [facility] [place] [facility] [address] [id number] [place] [address]- 3776 16 Aug, 2014 [facility] [place] [facility] [address] [id number] [place] [address]- 3978 16 Aug, 2014 [facility] [place] [facility] [address] [id number] [place] [address]- 6723 11 Aug, 2014 [facility] [place] [facility] [address] [id number] [place] [address]- 9493 11 Aug, 2014 [facility] [place] [facility] [address] [id number] [place] [address]- 9934 11 Aug, 2014 [facility] [place] [facility] [address] [id number] [place] [address]- 0923 11 Aug, 2014 [facility] [place] [facility] [address] [id number] [place] [address]- 9965 10 Aug, 2014 [facility] [place] [facility] [address] [id number] [place] [address]- 9330 10 Aug, 2014 [facility] [place] [facility] [address] [id number] [place] [address]- 0065 05 Aug, 2014 [facility] [place] [facility] [address] [id number] [place] [address]- 5088 05 Aug, 2014 [facility] [place] [facility] [address] [id number] [place] [address]- 0604 12 Aug, 2014 [facility] [place] [facility] [address] [id number] [address]- 7191 Aug, 2014 [facility] [place] [facility] [address] [id number] [place] [address]- 5829 Aug, [facility] [place] [facility] [address] [id number] [place] [address]- 2673 Aug, [facility] [place] [facility] [address] [facility] [id number] [place] [address]- 6492 Jul, [facility] [place] [facility] [address] [id number] [place] [address]- 3318 Jul, [facility] [place] [facility] [address] [facility] [id number] [place] [address]- 4542 Jul, [facility] [place] [facility] [address] [id number] [place] [address]- 8777 Jul, [facility] [place] [facility] [address] [facility] [id number] [address]- 1810 May, [facility] [place] [facility] [address] [facility] [id number] [place] [address]- 9564 May, [facility] [place] [facility] [address] [facility] [id number] [place] [address]- 8065 May, [facility] [place] [facility] [address] [facility] [id number] [place] [address]- 9623 Mar, [facility] [place] [facility] [address] [facility] [id number] [place] [address]- 0951 Mar, [facility] [place] [facility] [address] [facility] [id number] [address]- 0107 Mar, [facility] [place] [facility] [address] [id number] [place] [address]- 7799 Mar, [facility] [place] [facility] [address] [facility] [id number] [address]- 6605 Dec, [facility] [place] [facility] [address] [facility] [id number] [place] [address]- 4228 Dec, [facility] [place] [facility] [address] [id number] [place] [address]- 3235 Nov, [facility] [place] [facility] [address] [id number] [place] [address]- 9387 Nov, [facility] [place] [facility] [address] [id number] [place] [address]- 7117 Nov, [facility] [place] [facility] [address] [id number] [place] [address]- 9521 Nov, [facility] [place] [facility] [address] [id number] [place] [address]- 1479 Nov, [facility] [place] [facility] [address] [id number] [place] [address]- 4588 Nov, [facility] [place] [facility] [address] [id number] [place] [address]- 2032 October, [facility] [place] [facility] [address] [id number] [place] [address]- 9300 October, [facility] [place] [facility] [address] [id number] [place] [address]- 6584 October, [facility] [place] [facility] [address] [id number] [place] [address]- 9259 October, [facility] [place] [facility] [address] [id number] [place] [address]- 4222 October, [facility] [place] [facility] [address] [id number] [place] [address]- 2273 October, [facility] [place] [facility] [address] [id number] [place] [address]- 2003 October, [facility] [place] [facility] [address] [id number] [place] [address]- 5818 October, [facility] [place] [facility] [address] [id number] [place] 1279 October, [facility] [place] [facility] [address] [id number] [place] [address]- 6411 October, [facility] [place] [facility] [address] [id number] [place] [address]- 0682 October, [facility] [place] [facility] [address] [id number] [place] [address]- 1966 October, [facility] [place] [facility] [address] [id number] [place] [address]- 9708 October, [facility] [place] [facility] [address] [id number] [place] [address]- 8819 Sep, [facility] [place] [facility] [address] [id number] [place] [address]- 0693 Sep, [facility] [place] [facility] [address] [id number] [place] [address]- 4919 Aug, [facility] [place] [facility] [address] [id number] [place] [address]- 8241 Aug, [facility] [place] [facility] [address] [id number] [place] [address]- 6834 Aug, [facility] [place] [facility] [address] [id number] [place] [address]- 1669 Aug, [facility] [place] [facility] [address] [id number] [place] [address]- 1230 Aug, [facility] [place] [facility] [address] [id number] [place] [address]- 4952 Aug, [facility] [place] [facility] [address] [id number] [address]- 4255 Aug, [facility] [place] [facility] [address] [id number] [place] [address]- 5667 Aug, [facility] [place] [facility] [address] [id number] [place] [address]- 8154 Aug, [facility] [place] [facility] [address] [id number] [place] [address]- 2516 Aug, [facility] [place] [facility] [address] [id number] [place] [address]- 9361 Aug, [facility] [address] [id number] [place] [address]- 1783 Aug, [facility] [address] [id number] [place] [address]- 3271 Jul, [facility] [address] [id number] [place] [address]- 1364 Jul, [facility] [address] [id number] [place] [address]- 5513 Jul, [facility] [address] [id number] [place] [address]- 5461 Jul, [facility] [address] [facility] [id number] [place] [address]- 5798 Mar, [facility] [address] [id number] [place] [address]- 2036 Mar, [facility] [address] [id number] [place] [address]- 5133 Jan, [facility] [address] [id number] [place] [address]- 0616 Sep, [facility] [address] [facility] [id number] [place] [address]- 9139 Aug, [facility] [address] [id number] [place] [address]- 7070 Aug, [facility] [address] [id number] [place] [address]- 8023 08 Aug, 2012 [facility] [place] [facility] [address] [id number] [place] [address]- 1280 Aug, [facility] [place] [facility] [address] [id number] [place] [address]- 7865 05 Aug, 2012 [facility] [place] [facility] [address] [id number] [place] [address]- 1424 October, [facility] [place] [facility] [address] [id number] [place] [address]- 9092 October, [facility] [place] [facility] [address] [id number] [place] [address]- 2581 Sep, [facility] [place] [facility] [address] [id number] [place] [address]- 5274 Sep, [facility] [place] [facility] [address] [id number] [place] [address]- 6067 Sep, [facility] [place] [facility] [address] [id number] [place] [address]- 3787 Sep, [facility] [place] [facility] [address] [id number] [place] [address]- 3655 Sep, [facility] [place] [facility] [address] [id number] [place] [address]- 4695 Sep, [facility] [place] [facility] [address] [id number] [place] [address]- 5180 Sep, [facility] [place] [facility] [address] [id number] [place] [address]- 5257 Sep, [facility] [place] [facility] [address] [id number] [place] [address]- 0078 Sep, [facility] [place] [facility] [address] [id number] [place] [address] Sep, [facility] [place] [facility] [address] [id number] [place] [address] Aug, [facility] [place] [facility] [address] [id number] [place] [address] 17 Aug, 2011 [facility] [place] [facility] [address] [id number] [place] [address] 13 Aug, 2011 [facility] [place] [facility] [address] [id number] [place] [address] 10 Aug, 2011 [facility] [place] [facility] [address] [facility] [id number] [address] Jul, [facility] [address] [id number] [address] Jul, [facility] [id number] [address] Jul, [facility] [address] [id number] [address] May, [facility] [address] [id number] [address] May, [facility] [id number] [address] May, [facility] [id number] [address] Jan, [facility] [id number] [address] Dec, IMMUNIZATIONS No Known Immunizations SOCIAL HISTORY Never Assessed REASON FOR VISIT Weight Loss-Frances, pt thinks she due for blood work PLAN OF CARE Activity Details Follow Up 4 Weeks Reason:wt loss VITAL SIGNS Height 68 in 2017-11-28 Weight 335.1 lbs 2017-11-28 Temperature 98.5 degrees Fahrenheit 2017-11-28 Heart Rate 68 bpm 2017-11-28 Respiratory Rate 18 2017-11-28 BMI 50.95 kg/m2 2017-11-28 Blood pressure systolic 122 mmHg 2017-11-28 Blood pressure diastolic 82 mmHg 2017-11-28 MEDICATIONS Medication Instructions Dosage Frequency Start Date End Date Duration Status Tizanidine HCl 4 MG Orally 2 times a day 1 tablet as needed 12h 27 Aug, 2017 Nov, 28 days Active Amitriptyline HCl 10 mg Orally Once a day at hs 1 tablet 28 Active Pilocarpine HCl 5 MG Orally Three times a day 1 tablet 8h Active Cetirizine HCl 10 mg Orally Once a day 1 tablet 24h Active Wheelchair - xtra large Jul, Active Hydrocodone-Acetaminophen 7.5-325 MG Orally daily prn 1/2-1 tablet Sep, Active BuPROPion HCl 75 MG Orally Once a day x 1wk then increase to twice daily 1 tablet October, 30 day(s) Active Omeprazole 40 MG Orally Once a day 1 capsule 24h Active Preparation H 0.25-88.44 % Rectal 2 times a day as needed as directed October, Nov, 10 days Active Fluticasone Propionate 50 MCG/ACT Nasally Once a day 1 spray in each nostril 24h Active RESULTS No Results PROCEDURES Procedure Date Ordered Result Body Site LAB NOT BILLED BY [facility] November 28, 2017 Hemoglobin Test Send Out 0 dollar November 28, 2017 VENIPUNCT, ROUTINE* November 28, 2017 INSTRUCTIONS MEDICATIONS ADMINISTERED No Known Medications [...]
--- OUTSIDE RECORDS SUMMARY | 2018-06-15 19:08 | XMS REPORT ---
Author Author LULU CHURCHILL [facility] Address [address] [place] [address] Care Team Providers Care Test Engineer Name Role Phone LULU CHURCHILL Unavailable PROBLEMS Type Condition ICD9-CM Code BLP47-TV Code Onset Dates Condition Status SNOMED Code Problem Other chronic pain G89.29 Active 04126968 Problem Pre-diabetes R73.03 Active 724606212 Problem Arthritis of both knees M19.90 Active 787677826 Problem Paresthesia of skin R20.2 Active 87950676 Problem Morbid obesity E66.01 Active 056272432 Problem No diagnosis or condition on [place] I Z03.89 Active 2484237 Problem Insomnia due to medical condition G47.01 Active 028026687 Problem Idiopathic neuropathy G60.9 Active Problem Chronic seasonal allergic rhinitis, unspecified trigger J30.2 Active 392073188 Problem Abnormal x-ray of cervical spine R93.7 Active 088469133 Problem Vitamin D deficiency E55.9 Active 77784809 Problem Heartburn R12 Active 26800925 Problem Fibromyalgia M79.7 Active 51674781 Problem Long-term use of high-risk medication Z79.899 Active 254724266 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 34332244 Problem Depression F32.9 Active 90837227 ALLERGIES No Information ENCOUNTERS Encounter Location Date Diagnosis [facility] [address], [place] [address] Jan, [facility] [id number] [place] [address] 41096- 5209 Dec, Weight loss counseling, encounter for Z71.3 ; BMI 50.0-59.9 , adult Z68.43 ; 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 ; Abnormal x-ray of cervical spine R93.7 and Vitamin D deficiency E55.9 [facility] [id number] [place] [address] 89161- 4227 Dec, Encounter for weight loss counseling Z71.3 ; Fibromyalgia M79.7 and BMI 50.0-59.9, adult Z68.43 [facility] [address] [address]- 4663 Nov, [facility] [address] 76266- 7764 Nov, Morbid obesity E66.01 ; Paresthesia of upper and lower extremities of both sides R20.2 ; Hair loss L65.9 ; Fibromyalgia M79.7 and BMI 50.0-59.9, adult Z68.43 [facility] [address] 33333- 3025 Nov, Vitamin D deficiency E55.9 [facility] [address] 63932- 9482 Nov, Arthritis of both knees M19.90 and Vitamin D deficiency E55.9 [facility] [address] 22525- 0380 Nov, Chronic seasonal allergic rhinitis, unspecified trigger J30.2 and Heartburn R12 [facility] [address] [place] [id number] [place] [address] 04337- 0529 Nov, [facility] [address] [place] [id number] [place] [address] 55008- 9075 Nov, Vitamin D deficiency E55.9 [facility] [address] 98626- 7994 October, Morbid obesity E66.01 ; Hemorrhoids, unspecified hemorrhoid type K64.9 ; Pre-diabetes R73.03 and BMI 50.0-59.9, adult Z68.43 [facility] [address] [place] [id number] [place] [address] 15714- 9089 October, [facility] [address] 09304- 1607 October, [facility] [address] [place] [id number] [place] [address] 53281- 4472 October, Left arm numbness R20.0 ; Paresthesia of skin R20.2 ; Anesthesia of skin R20.0 and BMI 50.0-59.9, adult Z68.43 [facility] [address] [place] [id number] [place] [address] 54245- 8312 Sep, BMI 50.0-59.9, adult Z68.43 ; Fibromyalgia M79.7 ; Idiopathic neuropathy G60.9 ; Vitamin D deficiency E55.9 ; Chronic seasonal allergic rhinitis, unspecified trigger J30.2 and Long-term use of high-risk medication Z79.899 [facility] [address] 79651- 4705 Aug, Fibromyalgia M79.7 [facility] [address] 05920- 2334 Aug, No diagnosis or condition on [place] I Z03.89 [facility] [address] 96404- 1411 Aug, Chronic seasonal allergic rhinitis, unspecified trigger J30.2 ; Fibromyalgia M79.7 ; Heartburn R12 ; Pre-diabetes R73.03 ; Change of voice R49.9 and BMI 50.0-59.9, adult Z68.43 [facility] [address] [place] [id number] [place] [address] 23541- 3951 Aug, Fibromyalgia M79.7 [facility] [address] [place] [id number] [place] [address] 42232- 7236 May, Chronic seasonal allergic rhinitis, unspecified trigger J30.2 ; Vaginal itching L29.8 and Vaginal yeast infection B37.3 [facility] [place] [address] [place] [id number] [place] [address] 50873- 8166 May, Arthritis of both knees M19.90 [facility] [address] 6[address]25 -0237 May, Herpes zoster without complication B02.9 and Vaginal penny B37.3 [facility] [address] [place] [id number] [place] [address] 94741- 1053 Mar, [facility] [place] [address] [place] [id number] [place] [address] 25939- 6846 Mar, Arthritis of both knees M19.90 [facility] [address] 48905- 5696 Mar, Arthritis of both knees M19.90 ; Elevated serum creatinine R79.89 ; Fibromyalgia M79.7 ; Idiopathic neuropathy G60.9 ; Vitamin D deficiency E55.9 ; Pre-diabetes R73.03 and Insomnia due to medical condition G47.01 [place] [address] 90398- 5808 Mar, [place] [address] 36922- 5668 Jan, [facility] [address] 25899- 0291 Jan, Pes planus of left foot M21.42 ; Plantar fasciitis of left foot M72.2 and Neuropathy G62.9 [place] [id number] [place] [address] 59355- 9018 Jan, Arthritis of both knees M19.90 ; Fibromyalgia M79.7 ; Idiopathic neuropathy G60.9 ; Vitamin D deficiency E55.9 ; Pre-diabetes R73.03 ; Insomnia due to medical condition G47.01 ; Bad odor of urine R82.90 and SI ( sacroiliac) pain M53.[address] 05569- 6299 Jan, [address] 46151- 7071 Jan, Elevated serum creatinine R79.[address] 99445- 3203 Dec, [facility] [address] [place] [id number] [place] [address] 65816- 4692 Dec, Arthritis of both knees M19.90 ; Fibromyalgia M79.7 ; Idiopathic neuropathy G60.9 ; Vitamin D deficiency E55.9 and Pre-diabetes R73.03 [facility] [address] [place] [id number] [place] [address] 73143- 0380 Dec, Arthritis of both knees M19.90 [facility] [address] [place] [id number] [place] [address] 25667- 4018 October, [facility] [address] 27720- 2024 October, [facility] [address] [place] [id number] [place] [address] 21444- 9104 October, Fibromyalgia M79.7 [facility] [address] [place] [id number] [place] [address] 23513- 9460 October, Skin tag L91.8 ; Left foot pain M79.672 and Rash and nonspecific skin eruption R21 [facility] [address] [place] [id number] [place] [address] 58208- 7595 Aug, [facility] [address] [place] [id number] [place] [address] 26311- 0150 Aug, Arthritis of both knees M19.90 ; Fibromyalgia M79.7 ; Idiopathic neuropathy G60.9 ; Vitamin D deficiency E55.9 ; Morbid obesity due to excess calories E66.01 and History of prediabetes Z87.898 [facility] [id number] [place] [address] 48279 -5613 Aug, Blood in ear canal, right H92.21 [facility] [address] [place] [id number] [place] [address] 99002- 6361 Jul, [facility] [address] [place] [id number] [place] [address] 43261- 2829 19 Bob, 2017 Arthritis of both knees M19.90 ; Fibromyalgia M79.7 ; Idiopathic neuropathy G60.9 and Vitamin D deficiency E55.9 [facility] [address] 90158- 2629 Jul, Fibromyalgia M79.7 [facility] [address] [place] [id number] [place] [address] 35750- 7759 May, Fibromyalgia M79.7 ; Idiopathic neuropathy G60.9 ; Vitamin D deficiency E55.9 ; Memory change R41.3 ; Xerostomia K11.7 and Heartburn R12 [facility] [address] 49430- 7472 May, Fibromyalgia M79.7 ; Idiopathic neuropathy G60.9 ; Vitamin D deficiency E55.9 and Memory change R41.3 [place] [address] 28433- 6258 May, [facility] [address] 45081- 5413 Mar, [facility] [address] 27199- 5239 Jan, [facility] [address] 36080- 9548 Jan, [facility] [address] [place] [id number] [place] [address] 29285- 3749 Jan, Dermatitis L30.9 ; Pain in right shoulder M25.511 ; Fibromyalgia M79.7 and H/O right knee surgery Z98.89 [facility] [address] [place] [id number] [place] [address] 04408- 3445 Dec, [facility] [address] 11998- 7156 Dec, Middle ear effusion, right H65.91 ; Fibromyalgia M79.7 and Heartburn R12 [facility] [address] [place] [id number] [place] [address] 46522 -5162 Dec, Otalgia of right ear H92.01 and Middle ear effusion, right H65.91 [place] [address] [place] [id number] [place] [address] 78766- 0056 Nov, Acute pain of right knee M25.561 [facility] [place] [address] [place] [id number] [place] [address] 16387- 9081 Nov, [place] [address] 03069- 3182 Nov, Acute pain of right knee M25.561 [facility] [address] [place] [id number] [place] [address] 58228- 4115 October, Osteoarthritis of both knees, unspecified osteoarthritis type M17.0 [facility] [address] [place] [id number] [place] [address] 93853- 6700 October, [facility] [place] [address] [place] [id number] [place] [address] 63419- 1185 Sep, [facility] [address] [place] [id number] [place] [address] 48081- 7232 Sep, Fibromyalgia M79.7 ; Chronic fatigue R53.82 ; Sinusitis J32.9 ; Bronchiolitis J21.9 ; Weight gain R63.5 and Heartburn R12 [place] [address] [place] [id number] [place] [address] 67951- 8658 Sep, Mild hearing loss of right ear H91.91 and Tinnitus of right ear H93.11 [facility] [place] [address] [place] [id number] [place] [address] 37444- 5548 Aug, [facility] [address] [place] [id number] [place] [address] 47041- 7319 Aug, [facility] [address] [place] [id number] [place] [address] 05006- 9925 Aug, Fibromyalgia M79.7 and Depression F32.9 [place] [address] [place] [id number] [place] [address] 73134- 2512 Aug, [facility] [address] [place] [id number] [place] [address] 63483- 2176 Jul, Fibromyalgia M79.7 ; 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 ; Vitamin D deficiency E55.9 ; Long-term use of high-risk medication Z79.899 ; Heartburn R12 ; Chronic fatigue, unspecified R53.82 and Tinnitus of right ear H93.[address] 09686- 3423 Mar, Fibromyalgia M79.7 ; 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 ; Vitamin D deficiency E55.9 ; Diarrhea R19.7 ; Long-term use of high- risk medication Z79.899 and Heartburn R12 [place] [id number] [place] [address] 64578- 5948 Mar, Fibromyalgia 729.1 ; Unspecified hereditary and idiopathic peripheral neuropathy 356.9 ; Unspecified sleep disturbance 780.50 ; Left ankle pain 719.47 and Insomnia 780.52 [place] [id number] [place] [address] 31676- 0574 Mar, Unspecified episodic mood disorder 296.90 and Anxiety state , unspecified 300.00 [place] [id number] [place] [address] 96482- 7693 Mar, Chondromalacia of right knee 717.7 [place] [id number] [place] [address] 61808- 4727 Jan, [place] [id number] [place] [address] 61056- 7774 Dec, Left foot pain 729.[address] 12947- 3866 Sep, [place] [id number] [place] [address] 57968- 3739 Sep, [address] 92679- 8123 17 Aug, 2014 [facility] [place] [facility] [address] [id number] [place] [address]- 8086 17 Aug, 2014 [facility] [place] [facility] [address] [id number] [place] [address]- 2139 16 Aug, 2014 [facility] [place] [facility] [address] [id number] [place] [address]- 1079 16 Aug, 2014 [facility] [place] [facility] [address] [id number] [place] [address]- 0740 11 Aug, 2014 [facility] [place] [facility] [address] [id number] [place] [address]- 8586 11 Aug, 2014 [facility] [place] [facility] [address] [id number] [place] [address]- 6256 11 Aug, 2014 [facility] [place] [facility] [address] [id number] [place] [address]- 8714 11 Aug, 2014 [facility] [place] [facility] [address] [id number] [place] [address]- 8151 10 Aug, 2014 [facility] [place] [facility] [address] [id number] [place] [address]- 1956 10 Aug, 2014 [facility] [place] [facility] [address] [id number] [place] [address]- 5180 05 Aug, 2014 [facility] [place] [facility] [address] [id number] [place] [address]- 6684 05 Aug, 2014 [facility] [place] [facility] [address] [id number] [address]- 0111 Aug, 2014 [facility] [place] [facility] [address] [id number] [place] [address]- 3323 Aug, 2014 [facility] [place] [facility] [address] [id number] [place] [address]- 3979 Aug, [facility] [place] [facility] [address] [facility] [id number] [place] [address]- 7004 Aug, 2014 [facility] [place] [facility] [address] [id number] [place] [address]- 7177 Jul, [facility] [address] [id number] [place] [address]- 9354 Jul, [facility] [place] [facility] [address] [id number] [place] [address]- 8204 Jul, [facility] [address] [id number] [place] [address]- 1372 Jul, [facility] [place] [facility] [address] [id number] [place] [address]- 4034 May, [facility] [address] [id number] [place] [address]- 2035 May, [facility] [place] [facility] [address] [id number] [place] [address]- 6914 May, [facility] [place] [facility] [address] [id number] [place] [address]- 7522 Mar, [facility] [place] [facility] [address] [id number] [place] [address]- 1557 Mar, [facility] [place] [facility] [address] [id number] [place] [address]- 8846 Mar, [facility] [place] [facility] [address] [facility] [id number] [place] [address]- 2475 Mar, [facility] [place] [facility] [address] [id number] [place] [address]- 0677 Dec, [facility] [place] [facility] [address] [id number] [place] [address]- 1850 Dec, [facility] [place] [facility] [address] [id number] [place] [address]- 1470 Nov, [facility] [place] [facility] [address] [id number] [place] [address]- 1686 Nov, [facility] [place] [facility] [address] [id number] [place] [address]- 8949 Nov, [facility] [place] [facility] [address] [id number] [place] [address]- 6194 Nov, [facility] [place] [facility] [address] [id number] [place] [address]- 8390 Nov, [facility] [place] [facility] [address] [id number] [place] [address]- 9538 Nov, [facility] [place] [facility] [address] [id number] [place] [address]- 4621 October, [facility] [place] [facility] [address] [id number] [place] [address]- 4862 October, [facility] [place] [facility] [address] [id number] [place] [address]- 9146 October, [facility] [place] [facility] [address] [id number] [place] [address]- 2548 October, [facility] [place] [facility] [address] [id number] [place] [address]- 0934 October, [facility] [place] [facility] [address] [id number] [place] [address]- 2602 October, [facility] [place] [facility] [address] [id number] [place] [address]- 2096 October, [facility] [place] [facility] [address] [id number] [place] [address]- 1919 October, [facility] [place] [facility] [address] [id number] [place] [address]- 7031 October, [facility] [place] [facility] [address] [id number] [place] [address]- 3307 October, [facility] [place] [facility] [address] [id number] [place] [address]- 0475 October, [facility] [place] [facility] [address] [id number] [place] [address]- 1134 October, [facility] [place] [facility] [address] [id number] [place] [address]- 8585 October, [facility] [place] [facility] [address] [id number] [place] [address]- 4491 Sep, [facility] [place] [facility] [address] [id number] [place] [address]- 3193 Sep, [facility] [place] [facility] [address] [facility] [id number] [place] [address]- 8637 Aug, [facility] [place] [facility] [address] [id number] [place] [address]- 5681 Aug, [facility] [place] [facility] [address] [id number] [place] [address]- 3037 Aug, [facility] [place] [facility] [address] [id number] [place] [address]- 3617 Aug, [facility] [place] [facility] [address] [facility] [id number] [place] [address]- 5174 Aug, [facility] [place] [facility] [address] [facility] [id number] [place] [address]- 0194 Aug, [facility] [place] [facility] [address] [facility] [id number] [place] [address]- 6987 Aug, [facility] [place] [facility] [address] [facility] [id number] [place] [address]- 3827 Aug, [facility] [place] [facility] [address] [id number] [place] [address]- 8088 Aug, [facility] [place] [facility] [address] [id number] [place] [address]- 4171 Aug, [facility] [place] [facility] [address] [id number] [place] [address]- 1012 Aug, [facility] [place] [facility] [address] [id number] [place] 2684 Aug, [facility] [place] [facility] [address] [facility] [id number] [place] [address]- 6296 Jul, [facility] [place] [facility] [address] [id number] [place] [address]- 2788 Jul, [facility] [address] [id number] [place] [address]- 4339 Jul, [facility] [place] [facility] [address] [id number] [place] [address]- 5673 Jul, [facility] [address] [id number] [place] [address]- 3254 Mar, [facility] [address] [id number] [place] [address]- 1965 Mar, [facility] [place] [facility] [address] [id number] [place] [address]- 6874 Jan, [facility] [address] [id number] [place] [address]- 2537 Sep, [facility] [address] [id number] [place] [address]- 7055 Aug, [facility] [address] [id number] [place] [address]- 8002 Aug, [facility] [address] [id number] [place] [address]- 6636 Aug, [facility] [address] [id number] [place] [address]- 6702 Aug, [facility] [address] [id number], [place] [address]- 8144 Aug, [facility] [place] [facility] [address] [id number] [place] [address]- 9992 October, [facility] [place] [facility] [address] [id number] [place] [address]- 5646 October, [facility] [place] [facility] [address] [id number] [place] [address]- 4111 Sep, [facility] [place] [facility] [address] [id number], [place] [address]- 6117 26 Sep, 2011 [facility] [address] [id number] [place] [address]- 9742 25 Sep, 2011 [facility] [place] [facility] [address] [id number] [place] [address]- 8663 19 Sep, 2011 [facility] [address] [id number] [place] [address]- 8051 18 Sep, 2011 [facility] [place] [facility] [address] [id number] [place] [address]- 7471 11 Sep, 2011 [facility] [address] [id number] [place] [address]- 7324 Sep, [facility] [address] [id number] [place] [address]- 8053 09 Sep, 2011 [facility] [address] [id number] [place] [address]- 6213 07 Sep, 2011 [facility] [place] [facility] [address] [id number] [place] [address]- 7752 06 Sep, 2011 [facility] [address] [id number] [place] [address]- 1359 07 Aug, 2011 [facility] [address] [id number] [place] [address]- 3333 17 Aug, 2011 [facility] [address] [id number] [place] [address] 13 Aug, 2011 [facility] [place] [facility] [address] [id number] [place] [address] 10 Aug, 2011 [facility] [place] [facility] [address] [id number] [place] [address] Jul, [facility] [place] [facility] [address] [id number] [place] [address] Jul, [facility] [place] [facility] [address] [id number], [place] [address] Jul, [facility] [address] [facility] [id number], [place] [address] May, [facility] [address] [facility] [id number] [address] May, [facility] [address] [facility] [id number], [place] [address] May, [facility] [address] [facility] [id number], [place] [address] Jan, [facility] [address] [facility] [id number], [place] [address] Dec, IMMUNIZATIONS No Known Immunizations SOCIAL HISTORY Never Assessed REASON FOR VISIT X-ray results PLAN OF CARE VITAL SIGNS MEDICATIONS Unknown [...]
--- OUTSIDE RECORDS SUMMARY | 2018-06-15 19:08 | XMS REPORT ---
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 Name Role Phone ALEX HUTCHINSON Unavailable PROBLEMS Type Condition ICD9-CM Code SAT19-WZ Code Onset Dates Condition Status SNOMED Code Problem Other chronic pain G89.29 Active 15798114 Problem Pre-diabetes R73.03 Active 978284440 Problem Arthritis of both knees M19.90 Active 750240715 Problem Paresthesia of skin R20.2 Active 29113737 Problem Morbid obesity E66.01 Active 752509936 Problem No diagnosis or condition on [place] I Z03.89 Active 6651670 Problem Insomnia due to medical condition G47.01 Active 284052144 Problem Idiopathic neuropathy G60.9 Active Problem Chronic seasonal allergic rhinitis, unspecified trigger J30.2 Active 122952111 Problem Abnormal x-ray of cervical spine R93.7 Active 457517778 Problem Vitamin D deficiency E55.9 Active 94519912 Problem Heartburn R12 Active 85029861 Problem Fibromyalgia M79.7 Active 37720713 Problem Long-term use of high-risk medication Z79.899 Active 876836637 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 74445503 Problem Depression F32.9 Active 12377256 ALLERGIES No Information ENCOUNTERS Encounter Location Date Diagnosis [facility] [place] [address] [address] Jan, [facility] [place] [id number] [place] [address] 14497- 8862 Dec, Weight loss counseling, encounter for Z71.3 ; BMI 50.0-59.9 , adult Z68.43 ; 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 ; Abnormal x-ray of cervical spine R93.7 and Vitamin D deficiency E55.9 [facility] [place] [id number] [place] [address] 42311- 1699 09 Dec, 2017 Encounter for weight loss counseling Z71.3 ; Fibromyalgia M79.7 and BMI 50.0-59.9, adult Z68.43 [place] [id number] [place] [address] 83850- 1491 Nov, [place] [address] 30245- 0181 Nov, Morbid obesity E66.01 ; Paresthesia of upper and lower extremities of both sides R20.2 ; Hair loss L65.9 ; Fibromyalgia M79.7 and BMI 50.0-59.9, adult Z68.43 [place] [address] 22766- 6013 Nov, Vitamin D deficiency E55.9 [place] [id number] [place] [address] 35702- 5030 07 Nov, 2017 Arthritis of both knees M19.90 and Vitamin D deficiency E55.9 [place] [address] 06539- 7966 Nov, Chronic seasonal allergic rhinitis, unspecified trigger J30.2 and Heartburn R12 [place] [id number] [place] [address] 69672- 1244 Nov, [place] [id number] [place] [address] 82530- 8490 Nov, Vitamin D deficiency E55.9 [place] [id number] [place] [address] 01231- 0822 October, Morbid obesity E66.01 ; Hemorrhoids, unspecified hemorrhoid type K64.9 ; Pre-diabetes R73.03 and BMI 50.0-59.9, adult Z68.43 [place] [id number] [place] [address] 36353- 0869 October, [place] [address] 28267- 9843 October, [place] [id number] [place] [address] 00144- 9843 October, Left arm numbness R20.0 ; Paresthesia of skin R20.2 ; Anesthesia of skin R20.0 and BMI 50.0-59.9, adult Z68.43 [place] [address] 64120- 3061 Sep, BMI 50.0-59.9, adult Z68.43 ; Fibromyalgia M79.7 ; Idiopathic neuropathy G60.9 ; Vitamin D deficiency E55.9 ; Chronic seasonal allergic rhinitis, unspecified trigger J30.2 and Long-term use of high-risk medication Z79.899 [place] [address] 39028- 7596 Aug, Fibromyalgia M79.[address] 97690- 3146 Aug, No diagnosis or condition on [place] I Z03.89 [place] [address] 97037- 2193 Aug, Chronic seasonal allergic rhinitis, unspecified trigger J30.2 ; Fibromyalgia M79.7 ; Heartburn R12 ; Pre-diabetes R73.03 ; Change of voice R49.9 and BMI 50.0-59.9, adult Z68.43 [place] [address] 46005- 2334 Aug, Fibromyalgia M79.7 [place] [address] 61166- 6846 May, Chronic seasonal allergic rhinitis, unspecified trigger J30.2 ; Vaginal itching L29.8 and Vaginal yeast infection B37.[address] 64370- 5659 May, Arthritis of both knees M19.90 [facility] [address] 56751 -6657 May, Herpes zoster without complication B02.9 and Vaginal penny B37.3 [place] [id number] [place] [address] 79018- 7568 Mar, [place] [id number] [place] [address] 47571- 7652 Mar, Arthritis of both knees M19.90 [place] [id number] [place] [address] 12478- 3006 Mar, Arthritis of both knees M19.90 ; Elevated serum creatinine R79.89 ; Fibromyalgia M79.7 ; Idiopathic neuropathy G60.9 ; Vitamin D deficiency E55.9 ; Pre-diabetes R73.03 and Insomnia due to medical condition G47.01 [place] [id number] [place] [address] 60916- 3022 Mar, [place] [id number] [place] [address] 55607- 9521 Jan, [place] [id number] [place] [address] 34921- 5555 Jan, Pes planus of left foot M21.42 ; Plantar fasciitis of left foot M72.2 and Neuropathy G62.9 [place] [id number] [place] [address] 95038- 4091 Jan, Arthritis of both knees M19.90 ; Fibromyalgia M79.7 ; Idiopathic neuropathy G60.9 ; Vitamin D deficiency E55.9 ; Pre-diabetes R73.03 ; Insomnia due to medical condition G47.01 ; Bad odor of urine R82.90 and SI ( sacroiliac) pain M53.3 [place] [id number] [place] [address] 19157- 4018 Jan, [place] [id number] [place] [address] 13328- 9856 Jan, Elevated serum creatinine R79.89 [place] [address] 94299- 7011 Dec, [facility] [place] [address] [place] [address] 19164- 5750 Dec, Arthritis of both knees M19.90 ; Fibromyalgia M79.7 ; Idiopathic neuropathy G60.9 ; Vitamin D deficiency E55.9 and Pre-diabetes R73.03 [facility] [place] [id number] [place] [address] 92419- 6766 Dec, Arthritis of both knees M19.90 [place] [id number] [place] [address] 65620- 8944 October, [place] [id number] [place] [address] 84419- 3713 October, [facility] [place] [id number] [place] [address] 49092- 4573 October, Fibromyalgia M79.7 [place] [id number] [place] [address] 79213- 7027 October, Skin tag L91.8 ; Left foot pain M79.672 and Rash and nonspecific skin eruption R21 [place] [id number] [place] [address] 72981- 6866 Aug, [place] [id number] [place] [address] 50737- 9227 Aug, Arthritis of both knees M19.90 ; Fibromyalgia M79.7 ; Idiopathic neuropathy G60.9 ; Vitamin D deficiency E55.9 ; Morbid obesity due to excess calories E66.01 and History of prediabetes Z87.898 [facility] [address], [place] [address] Aug, Blood in ear canal, right H92.21 [facility] [place] [address] [place] [address] 54625- 1881 Jul, [facility] [place] [id number] [place] [address] 03388- 2519 Jul, Arthritis of both knees M19.90 ; Fibromyalgia M79.7 ; Idiopathic neuropathy G60.9 and Vitamin D deficiency E55.9 [facility] [place] [address] 24915- 6365 Jul, Fibromyalgia M79.7 [facility] [place] [id number] [place] [address] 92320- 9577 May, Fibromyalgia M79.7 ; Idiopathic neuropathy G60.9 ; Vitamin D deficiency E55.9 ; Memory change R41.3 ; Xerostomia K11.7 and Heartburn R12 [place] [id number] [place] [address] 61025- 1096 May, Fibromyalgia M79.7 ; Idiopathic neuropathy G60.9 ; Vitamin D deficiency E55.9 and Memory change R41.3 [place] [address] 85595- 5720 May, [facility] [place] [address] 19977- 7762 Mar, [facility] [place] [address] 56275- 3528 Jan, [place] [address] 99010- 2386 Jan, [place] [id number] [place] [address] 72511- 6468 Jan, Dermatitis L30.9 ; Pain in right shoulder M25.511 ; Fibromyalgia M79.7 and H/O right knee surgery Z98.89 [facility] [place] [id number] [place] [address] 43354- 0936 Dec, [place] [address] 59057- 9242 Dec, Middle ear effusion, right H65.91 ; Fibromyalgia M79.7 and Heartburn R12 [facility] [id number] [place] [address] 37759 -3690 Dec, Otalgia of right ear H92.01 and Middle ear effusion, right H65.91 [place] [id number] [place] [address] 91097- 5061 Nov, Acute pain of right knee M25.561 [place] [id number] [place] [address] 73292- 0430 Nov, [place] [id number] [place] [address] 07970- 7898 Nov, Acute pain of right knee M25.561 [place] [id number] [place] [address] 10284- 9025 October, Osteoarthritis of both knees, unspecified osteoarthritis type M17.0 [place] [id number] [place] [address] 84490- 1876 October, [place] [id number] [place] [address] 51713- 4522 Sep, [place] [id number] [place] [address] 44245- 6523 Sep, Fibromyalgia M79.7 ; Chronic fatigue R53.82 ; Sinusitis J32.9 ; Bronchiolitis J21.9 ; Weight gain R63.5 and Heartburn R12 [place] [id number] [place] [address] 47954- 1813 Sep, Mild hearing loss of right ear H91.91 and Tinnitus of right ear H93.11 [place] [id number] [place] [address] 27502- 5942 Aug, [place] [id number] [place] [address] 38821- 2211 Aug, [place] [id number] [place] [address] 42875- 5373 Aug, Fibromyalgia M79.7 and Depression F32.9 [place] [id number] [place] [address] 53739- 1435 Aug, [place] [id number] [place] [address] 53575- 2016 Jul, Fibromyalgia M79.7 ; 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 ; Vitamin D deficiency E55.9 ; Long-term use of high-risk medication Z79.899 ; Heartburn R12 ; Chronic fatigue, unspecified R53.82 and Tinnitus of right ear H93.11 [place] [address] 75997- 5012 Mar, Fibromyalgia M79.7 ; 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 ; Vitamin D deficiency E55.9 ; Diarrhea R19.7 ; Long-term use of high- risk medication Z79.899 and Heartburn R12 [place] [id number] [place] [address] 08104- 7874 Mar, Fibromyalgia 729.1 ; Unspecified hereditary and idiopathic peripheral neuropathy 356.9 ; Unspecified sleep disturbance 780.50 ; Left ankle pain 719.47 and Insomnia 780.52 [place] [id number] [place] [address] 95826- 4003 Mar, Unspecified episodic mood disorder 296.90 and Anxiety state , unspecified 300.00 [place] [id number] [place] [address] 04179- 4825 Mar, Chondromalacia of right knee 717.7 [place] [id number] [place] [address] 17782- 9480 Jan, [place] [id number] [place] [address] 97669- 4374 Dec, Left foot pain 729.5 [place] [address] 92182- 1434 Sep, [place] [id number] [place] [address] 41777- 7014 Sep, [place] [address] 28726- 9279 17 Aug, 2014 [facility] [place] [facility] [address] [id number] [place] [address]- 5345 17 Aug, 2014 [facility] [place] [facility] [address] [id number] [place] [address]- 9049 16 Aug, 2014 [facility] [place] [facility] [address] [id number] [place] [address]- 0224 16 Aug, 2014 [facility] [place] [facility] [address] [id number] [place] [address]- 9951 11 Aug, 2014 [facility] [place] [facility] [address] [id number] [place] [address]- 0871 11 Aug, 2014 [facility] [place] [facility] [address] [id number] [place] [address]- 8507 Aug, [facility] [place] [facility] [address] [id number] [place] [address]- 5372 Aug, [facility] [place] [facility] [address] [id number] [place] [address]- 4331 10 Aug, 2014 [facility] [place] [facility] [address] [id number] [place] [address]- 2262 10 Aug, 2014 [facility] [place] [facility] [address] [id number] [place] [address]- 2090 05 Aug, 2014 [facility] [place] [facility] [address] [id number] [place] [address]- 9023 Aug, [facility] [place] [facility] [address] [id number] [place] [address]- 5152 Aug, [facility] [place] [facility] [address] [id number] [place] [address]- 4887 Aug, [facility] [place] [facility] [address] [id number] [place] 7384 Aug, [facility] [place] [facility] [address] [id number] [place] [address]- 3991 Aug, [facility] [place] [facility] [address] [id number] [place] [address] 2546 Jul, [facility] [place] [facility] [address] [id number] [place] [address]- 8832 Jul, [facility] [place] [facility] [address] [id number] [place] [address]- 2546 Jul, [facility] [place] [facility] [address] [id number] [place] [address]- 4546 Jul, [facility] [place] [facility] [address] [id number] [place] [address]- 6856 May, [facility] [place] [facility] [address] [id number] [place] [address]- 8100 May, [facility] [place] [facility] [address] [id number] [place] [address]- 1065 May, [facility] [place] [facility] [address] [id number] [place] [address]- 7135 Mar, [facility] [place] [facility] [address] [id number] [place] [address]- 3345 Mar, [facility] [place] [facility] [address] [id number] [place] [address]- 8476 Mar, [facility] [place] [facility] [address] [id number] [place] [address]- 5071 Mar, [facility] [place] [facility] [address] [id number] [place] [address]- 7151 Dec, [facility] [place] [facility] [address] [id number] [place] [address]- 9167 Dec, [facility] [place] [facility] [address] [id number] [place] [address]- 6792 Nov, [facility] [place] [facility] [address] [id number] [place] [address]- 2546 Nov, [facility] [place] [facility] [address] [id number] [place] [address]- 6640 Nov, [facility] [place] [facility] [address] [id number] [place] [address]- 4506 Nov, [facility] [place] [facility] [address] [id number] [place] [address]- 1784 Nov, [facility] [place] [facility] [address] [id number] [place] [address]- 7057 Nov, [facility] [place] [facility] [address] [id number] [place] [address]- 3958 October, [facility] [place] [facility] [address] [id number] [place] [address]- 7972 October, [facility] [place] [facility] [address] [id number] [place] [address]- 5559 October, [facility] [place] [facility] [address] [id number] [place] [address]- 4093 October, [facility] [place] [facility] [address] [id number] [place] [address]- 2345 October, [facility] [place] [facility] [address] [id number] [place] [address]- 9128 October, [facility] [place] [facility] [address] [id number] [place] [address]- 2817 October, [facility] [place] [facility] [address] [id number] [place] [address]- 4355 October, [facility] [place] [facility] [address] [id number] [place] [address]- 5194 October, [facility] [place] [facility] [address] [id number] [place] [address]- 3993 October, [facility] [place] [facility] [address] [id number] [place] [address]- 0999 October, [facility] [place] [facility] [address] [id number] [place] [address]- 1649 October, [facility] [place] [facility] [address] [id number] [place] [address]- 1605 October, [facility] [place] [facility] [address] [id number] [place] [address]- 0519 Sep, [facility] [place] [facility] [address] [id number] [place] [address]- 7208 Sep, [facility] [place] [facility] [address] [id number] [place] [address]- 3562 Aug, [facility] [place] [facility] [address] [id number] [place] [address]- 9450 Aug, [facility] [place] [facility] [address] [id number] [place] [address]- 2004 Aug, [facility] [place] [facility] [address] [id number] [place] [address]- 8510 Aug, [facility] [place] [facility] [address] [id number] [place] [address]- 5663 Aug, [facility] [place] [facility] [address] [id number] [place] [address]- 2991 Aug, [facility] [place] [facility] [address] [id number] [place] [address]- 9356 Aug, [facility] [place] [facility] [address] [facility] [id number] [place] [address]- 9465 Aug, [facility] [place] [facility] [address] [id number] [place] [address]- 2928 Aug, [facility] [place] [facility] [address] [id number] [place] [address]- 2184 Aug, [facility] [place] [facility] [address] [id number] [place] [address]- 4586 Aug, [facility] [place] [facility] [address] [id number] [place] [address]- 8652 Aug, [facility] [place] [facility] [address] [id number] [place] [address]- 5057 Jul, [facility] [place] [facility] [address] [id number] [place] [address]- 0182 Jul, [facility] [address] [id number] [place] [address]- 4700 Jul, [facility] [address] [id number] [place] [address]- 5624 Jul, [facility] [place] [facility] [address] [id number] [place] [address]- 0807 Mar, [facility] [address] [id number] [place] [address]- 0557 Mar, [facility] [place] [facility] [address] [id number] [place] [address]- 9371 Jan, [facility] [address] [id number] [place] [address]- 0590 Sep, [facility] [address] [id number] [place] [address]- 6010 Aug, [facility] [address] [id number] [place] [address]- 0738 Aug, [facility] [address] [id number] [place] [address] Aug, [facility] [address] [id number] [place] [address] Aug, [facility] [place] [facility] [address] [id number], [place] [address] Aug, [facility] [place] [facility] [address] [id number] [place] [address] October, [facility] [place] [facility] [address] [id number] [place] [address] October, [facility] [place] [facility] [address] [id number] [place] [address] Sep, [facility] [place] [facility] [address] [id number] [place] [address] 26 Sep, 2011 [facility] [address] [id number] [place] [address] 25 Sep, 2011 [facility] [place] [facility] [address] [id number] [place] [address] 19 Sep, 2011 [facility] [address] [id number] [place] [address] 18 Sep, 2011 [facility] [place] [facility] [address] [id number] [place] [address] 11 Sep, 2011 [facility] [address] [id number] [place] [address] Sep, [facility] [address] [id number] [place] [address] 09 Sep, 2011 [facility] [address] [id number] [place] [address] 07 Sep, 2011 [facility] [address] [id number] [place] [address] 06 Sep, 2011 [facility] [address] [id number] [place] [address] 07 Aug, 2011 [facility] [address] [id number] [place] [address] 17 Aug, 2011 [facility] [place] [facility] [address] [id number] [place] [address] 13 Aug, 2011 [facility] [place] [facility] [address] [id number] [place] [address] 10 Aug, 2011 [facility] [place] [facility] [address] [id number] [place] [address] Jul, [facility] [place] [facility] [address] [id number] [place] [address] Jul, [facility] [place] [facility] [address] [id number] [place] [address] Jul, [facility] [place] [address] [facility] [id number] [place] [address] May, [facility] [place] [address] [facility] [id number], [place] [address] May, [facility] [place] [address] [facility] [id number], [place] [address] May, [facility] [place] [address] [facility] [id number], [place] [address] Jan, [facility] [place] [address] [facility] [id number], [place] [address] Dec, IMMUNIZATIONS No Known Immunizations SOCIAL HISTORY [...]
--- OUTSIDE RECORDS SUMMARY | 2018-06-15 19:09 | XMS REPORT ---
Author Author LULU CHURCHILL [facility] Address [address] [place] [address] Care Team Providers Care Manager Lsw Name Role Phone LULU CHURCHILL Unavailable PROBLEMS Type Condition ICD9-CM Code NRO01-SR Code Onset Dates Condition Status SNOMED Code Problem Other chronic pain G89.29 Active 64708856 Problem Pre-diabetes R73.03 Active 002095201 Problem Arthritis of both knees M19.90 Active 532190842 Problem Paresthesia of skin R20.2 Active 41800478 Problem Morbid obesity E66.01 Active 877751279 Problem No diagnosis or condition on Doerun I Z03.89 Active 7011029 Problem Insomnia due to medical condition G47.01 Active 236703519 Problem Idiopathic neuropathy G60.9 Active Problem Chronic seasonal allergic rhinitis, unspecified trigger J30.2 Active 731391701 Problem Abnormal x-ray of cervical spine R93.7 Active 343512205 Problem Vitamin D deficiency E55.9 Active 36464681 Problem Heartburn R12 Active 65351781 Problem Fibromyalgia M79.7 Active 69244533 Problem Long-term use of high-risk medication Z79.899 Active 204508865 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 42943671 Problem Depression F32.9 Active 64539133 ALLERGIES Substance Reaction Event Type Date Status Neurontin Unknown Drug Allergy October, Active Naproxen Unknown Drug Allergy October, Active Lyrica Nausea, diarrhea, headaches Drug Allergy October, Active Effexor Unknown Drug Allergy October, Active Demerol Unknown Drug Allergy October, Active Cymbalta 30 Mg Capsule, Delayed Release(e.c.) Unknown Non Drug Allergy October, Active ENCOUNTERS Encounter Location Date Diagnosis [facility] [address] [facility] [id number] [address] Jan, [facility] [id number] [place] [address] 86756- 7147 Dec, Weight loss counseling, encounter for Z71.3 ; BMI 50.0-59.9 , adult Z68.43 ; 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 ; Abnormal x-ray of cervical spine R93.7 and Vitamin D deficiency E55.9 [place] [address] [address]- [address] Dec, Encounter for weight loss counseling Z71.3 ; Fibromyalgia M79.7 and BMI 50.0-59.9, adult Z68.43 [place] [address] 79496- 3056 Nov, [place] [address] 60621- 8389 Nov, Morbid obesity E66.01 ; Paresthesia of upper and lower extremities of both sides R20.2 ; Hair loss L65.9 ; Fibromyalgia M79.7 and BMI 50.0-59.9, adult Z68.43 [place] [address] 52622- 6618 Nov, Vitamin D deficiency E55.9 [place] [address] 00881- 1341 Nov, Arthritis of both knees M19.90 and Vitamin D deficiency E55.9 [place] [address] 87703- 5262 Nov, Chronic seasonal allergic rhinitis, unspecified trigger J30.2 and Heartburn R12 [place] [address] 31643- 8712 Nov, [place] [address] 17415- 9842 Nov, Vitamin D deficiency E55.9 [place] [address] 72565- 1102 October, Morbid obesity E66.01 ; Hemorrhoids, unspecified hemorrhoid type K64.9 ; Pre-diabetes R73.03 and BMI 50.0-59.9, adult Z68.43 [place] [address] 56387- 9771 October, [place] [address] 03191- 3434 October, [place] [address] 43112- 3307 October, Left arm numbness R20.0 ; Paresthesia of skin R20.2 ; Anesthesia of skin R20.0 and BMI 50.0-59.9, adult Z68.43 [place] [address] 33573- 0760 Sep, BMI 50.0-59.9, adult Z68.43 ; Fibromyalgia M79.7 ; Idiopathic neuropathy G60.9 ; Vitamin D deficiency E55.9 ; Chronic seasonal allergic rhinitis, unspecified trigger J30.2 and Long-term use of high-risk medication Z79.899 [place] [address] 86474- 8640 Aug, Fibromyalgia M79.7 [place] [address] 60893- 8731 Aug, No diagnosis or condition on Doerun I Z03.89 [place] [address] 37302- 1917 Aug, Chronic seasonal allergic rhinitis, unspecified trigger J30.2 ; Fibromyalgia M79.7 ; Heartburn R12 ; Pre-diabetes R73.03 ; Change of voice R49.9 and BMI 50.0-59.9, adult Z68.43 [place] [address] 85423- 8966 Aug, Fibromyalgia M79.7 [place] [address] 85459- 6910 May, Chronic seasonal allergic rhinitis, unspecified trigger J30.2 ; Vaginal itching L29.8 and Vaginal yeast infection B37.3 [facility] [id number] [place] [address] 66002- 0969 May, Arthritis of both knees M19.90 [facility] [id number] [place] [address] 30198 -8165 May, Herpes zoster without complication B02.9 and Vaginal penny B37.3 [facility] [id number] [place] [address] 58287- 2930 Mar, [facility] [address] 72787- 3480 Mar, Arthritis of both knees M19.90 [place] [address] 76038- 0084 Mar, Arthritis of both knees M19.90 ; Elevated serum creatinine R79.89 ; Fibromyalgia M79.7 ; Idiopathic neuropathy G60.9 ; Vitamin D deficiency E55.9 ; Pre-diabetes R73.03 and Insomnia due to medical condition G47.01 [facility] [id number] [place] [address] 66408- 3050 Mar, [place] [id number] [place] [address] 43340- 7044 Jan, [place] [id number] [place] [address] 65774- 3085 Jan, Pes planus of left foot M21.42 ; Plantar fasciitis of left foot M72.2 and Neuropathy G62.9 [facility] [id number] [place] [address] 56752- 0949 Jan, Arthritis of both knees M19.90 ; Fibromyalgia M79.7 ; Idiopathic neuropathy G60.9 ; Vitamin D deficiency E55.9 ; Pre-diabetes R73.03 ; Insomnia due to medical condition G47.01 ; Bad odor of urine R82.90 and SI ( sacroiliac) pain M53.3 [facility] [id number] [place] [address] 87745- 7818 Jan, [place] [id number] [place] [address] 49918- 6225 Jan, Elevated serum creatinine R79.89 [facility] [id number] [place] [address] 75828- 7326 Dec, [place] [address] 08212- 9981 Dec, Arthritis of both knees M19.90 ; Fibromyalgia M79.7 ; Idiopathic neuropathy G60.9 ; Vitamin D deficiency E55.9 and Pre-diabetes R73.03 [place] [id number] [place] [address] 84296- 0314 Dec, Arthritis of both knees M19.90 [place] [id number] [place] [address] 85192- 7777 October, [place] [address] [id number] [place] [address] 16091- 6638 October, [place] [id number] [place] [address] 15086- 2350 October, Fibromyalgia M79.7 [facility] [id number] [place] [address] 81475- 0298 October, Skin tag L91.8 ; Left foot pain M79.672 and Rash and nonspecific skin eruption R21 [place] [id number] [place] [address] 24458- 5514 Aug, [facility] [id number] [place] [address] 89704- 9848 Aug, Arthritis of both knees M19.90 ; Fibromyalgia M79.7 ; Idiopathic neuropathy G60.9 ; Vitamin D deficiency E55.9 ; Morbid obesity due to excess calories E66.01 and History of prediabetes Z87.898 [facility] [id number] [place] [address] 48023 -7524 Aug, Blood in ear canal, right H92.21 [place] [address] [id number] [place] [address] 79880- 4186 Jul, [place] [id number] [place] [address] 03817- 1513 Jul, Arthritis of both knees M19.90 ; Fibromyalgia M79.7 ; Idiopathic neuropathy G60.9 and Vitamin D deficiency E55.9 [place] [id number] [place] [address] 19104- 4884 Jul, Fibromyalgia M79.7 [place] [address] 06580- 7943 May, Fibromyalgia M79.7 ; Idiopathic neuropathy G60.9 ; Vitamin D deficiency E55.9 ; Memory change R41.3 ; Xerostomia K11.7 and Heartburn R12 [place] [id number] [place] [address] 34197- 9123 May, Fibromyalgia M79.7 ; Idiopathic neuropathy G60.9 ; Vitamin D deficiency E55.9 and Memory change R41.3 [place] [id number] [place] [address] 54121- 5762 May, [place] [id number] [place] [address] 80903- 8694 Mar, [place] [address] [id number] [place] [address] 11882- 8428 Jan, [place] [id number] [place] [address] 45510- 6369 Jan, [place] [address] 18285- 2745 Jan, Dermatitis L30.9 ; Pain in right shoulder M25.511 ; Fibromyalgia M79.7 and H/O right knee surgery Z98.89 [place] [address] 68433- 5687 Dec, [facility] [address] [address] Dec, Middle ear effusion, right H65.91 ; Fibromyalgia M79.7 and Heartburn R12 [facility] [address] [place] [address] 46977 -4798 Dec, Otalgia of right ear H92.01 and Middle ear effusion, right H65.91 [facility] [id number] [place] [address] 71185- 3236 Nov, Acute pain of right knee M25.561 [place] [id number] [place] [address] 90006- 6815 Nov, [place] [id number] [place] [address] 84502- 1397 Nov, Acute pain of right knee M25.561 [facility] [id number] [place] [address] 59382- 3774 October, Osteoarthritis of both knees, unspecified osteoarthritis type M17.0 [facility] [id number] [place] [address] 78951- 0975 October, [place] [id number] [place] [address] 35916- 3975 Sep, [facility] [id number] [place] [address] 18866- 1147 Sep, Fibromyalgia M79.7 ; Chronic fatigue R53.82 ; Sinusitis J32.9 ; Bronchiolitis J21.9 ; Weight gain R63.5 and Heartburn R12 [facility] [id number] [place] [address] 26628- 3700 Sep, Mild hearing loss of right ear H91.91 and Tinnitus of right ear H93.11 [facility] [id number] [place] [address] 46074- 5663 Aug, [facility] [address] [place] [address]- 2734 Aug, [place] [address] 20675- 5343 Aug, Fibromyalgia M79.7 and Depression F32.9 [place] [address] 38071- 7044 Aug, [place] [address] 60477- 2922 Jul, Fibromyalgia M79.7 ; 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 ; Vitamin D deficiency E55.9 ; Long-term use of high-risk medication Z79.899 ; Heartburn R12 ; Chronic fatigue, unspecified R53.82 and Tinnitus of right ear H93.11 [place] [address] 20697- 7438 Mar, Fibromyalgia M79.7 ; 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 ; Vitamin D deficiency E55.9 ; Diarrhea R19.7 ; Long-term use of high- risk medication Z79.899 and Heartburn R12 [place] [id number] [place] [address] 94279- 4292 Mar, Fibromyalgia 729.1 ; Unspecified hereditary and idiopathic peripheral neuropathy 356.9 ; Unspecified sleep disturbance 780.50 ; Left ankle pain 719.47 and Insomnia 780.52 [place] [id number] [place] [address] 71073- 0383 Mar, Unspecified episodic mood disorder 296.90 and Anxiety state , unspecified 300.00 [place] [id number] [place] [address] 71141- 0428 Mar, Chondromalacia of right knee 717.7 [place] [address] [place] [id number] [place] [address] 58612- 1906 Jan, [place] [address] [id number] [place] [address] 54436- 3632 Dec, Left foot pain 729.5 [facility] [place] [facility] [address] [id number] [place] [address]- 8000 14 Sep, 2014 [facility] [place] [facility] [address] [id number] [place] [address]- 8216 13 Sep, 2014 [facility] [place] [facility] [address] [id number] [place] [address]- 5916 17 Aug, 2014 [facility] [place] [facility] [address] [id number] [place] [address]- 6166 17 Aug, 2014 [facility] [place] [facility] [address] [id number] [place] [address]- 9489 16 Aug, 2014 [facility] [place] [facility] [address] [id number] [place] [address]- 0909 16 Aug, 2014 [facility] [place] [facility] [address] [id number] [place] [address]- 0559 11 Aug, 2014 [facility] [place] [facility] [address] [id number] [place] [address]- 9593 11 Aug, 2014 [facility] [place] [facility] [address] [id number] [place] [address]- 9912 11 Aug, 2014 [facility] [place] [facility] [address] [id number] [place] [address]- 9493 11 Aug, 2014 [facility] [place] [facility] [address] [id number] [place] [address]- 6465 10 Aug, 2014 [facility] [place] [facility] [address] [id number] [place] [address]- 3117 10 Aug, 2014 [facility] [place] [facility] [address] [id number] [place] [address]- 6959 05 Aug, 2014 [facility] [place] [facility] [address] [id number] [place] [address]- 4359 05 Aug, 2014 [facility] [place] [facility] [address] [id number] [place] [address]- 7887 12 Aug, 2014 [facility] [place] [facility] [address] [id number] [address]- 2222 Aug, [facility] [place] [facility] [address] [id number] [place] [address]- 4924 Aug, [facility] [place] [facility] [address] [id number], [place] [address]- 2793 Aug, [facility] [place] [facility] [address] [facility] [id number] [place] [address]- 4842 Jul, [facility] [place] [facility] [address] [id number] [place] [address]- 6317 Jul, [facility] [place] [facility] [address] [id number] [place] [address]- 2227 Jul, [facility] [place] [facility] [address] [id number] [place] [address]- 8680 Jul, [facility] [place] [facility] [address] [facility] [id number] [address]- 7616 May, [facility] [place] [facility] [address] [id number] [place] [address]- 2815 May, [facility] [place] [facility] [address] [id number] [address]- 2196 May, [facility] [place] [facility] [address] [facility] [id number] [place] [address]- 7159 Mar, [facility] [place] [facility] [address] [id number], [place] [address]- 1481 Mar, [facility] [place] [facility] [address] [id number], [place] [address]- 8392 Mar, [facility] [place] [facility] [address] [id number][place] [address]- 5982 Mar, [facility] [place] [facility] [address] [id number], [place] [address]- 6658 Dec, [facility] [place] [facility] [address] [facility] [id number] [place] [address]- 1844 Dec, [facility] [place] [facility] [address] [id number] [place] [address]- 2285 Nov, [facility] [place] [facility] [address] [id number] [place] [address]- 8759 Nov, [facility] [place] [facility] [address] [id number] [place] [address]- 3428 Nov, [facility] [place] [facility] [address] [id number] [place] [address]- 9556 Nov, [facility] [place] [facility] [address] [id number] [place] [address]- 2985 Nov, [facility] [place] [facility] [address] [id number] [place] [address]- 6503 Nov, [facility] [place] [facility] [address] [id number] [place] [address]- 3899 October, [facility] [place] [facility] [address] [id number] [place] [address]- 4049 October, [facility] [place] [facility] [address] [id number] [place] [address]- 2817 October, [facility] [place] [facility] [address] [id number] [place] [address]- 0590 October, [facility] [place] [facility] [address] [id number] [place] [address]- 0200 October, [facility] [place] [facility] [address] [id number] [place] [address]- 7791 October, [facility] [place] [facility] [address] [id number] [place] [address]- 1235 October, [facility] [place] [facility] [address] [id number] [place] [address]- 5520 October, [facility] [place] [facility] [address] [id number] [place] [address]- 2686 October, [facility] [place] [facility] [address] [id number] [place] [address]- 9668 October, [facility] [place] [facility] [address] [id number] [place] [address]- 8520 October, [facility] [place] [facility] [address] [id number] [place] [address]- 1926 October, [facility] [place] [facility] [address] [id number] [place] 0905 October, [facility] [place] [facility] [address] [id number] [place] [address]- 1220 Sep, [facility] [place] [facility] [address] [id number] [place] [address]- 4789 Sep, [facility] [place] [facility] [address] [id number] [place] [address]- 5305 Aug, [facility] [place] [facility] [address] [id number] [place] [address]- 6639 Aug, [facility] [place] [facility] [address] [id number] [place] [address]- 3896 Aug, [facility] [place] [facility] [address] [id number] [place] [address]- 0893 Aug, [facility] [place] [facility] [address] [id number] [place] [address]- 4665 Aug, [facility] [place] [facility] [address] [id number] [place] [address]- 3417 Aug, [facility] [place] [facility] [address] [id number] [place] [address]- 2232 Aug, [facility] [place] [facility] [address] [id number] [place] [address]- 3778 Aug, [facility] [place] [facility] [address] [id number] [place] [address]- 3947 Aug, [facility] [place] [facility] [address] [id number] [place] [address]- 6138 Aug, [facility] [place] [facility] [address] [id number] [place] [address]- 6373 Aug, [facility] [address] [id number] [place] [address]- 4882 Aug, [facility] [address] [id number] [place] [address]- 6407 Jul, [facility] [address] [id number] [place] [address]- 6149 Jul, [facility] [address] [id number] [place] [address]- 9952 Jul, [facility] [address] [id number] [place] [address]- 0751 Jul, [facility] [address] [id number] [place] [address]- 6101 Mar, [facility] [address] [id number] [place] [address]- 4250 Mar, [facility] [address] [id number] [place] [address]- 8049 Jan, [facility] [address] [id number] [place] [address]- 7793 Sep, [facility] [address] [id number] [place] [address]- 4363 14 Aug, [address] [facility] [address] [id number] [place] [address]- 9656 Aug, [facility] [address] [id number] [place] [address]- 2546 Aug, [facility] [address] [id number] [place] [address]- 1296 Aug, [facility] [address] [id number] [place] [address]- 2546 Aug, [facility] [address] [id number] [place] [address]- 6948 October, [facility] [place] [facility] [address] [id number] [place] [address]- 4824 October, [facility] [place] [facility] [address] [id number] [place] [address]- 4648 Sep, [facility] [place] [facility] [address] [id number] [place] [address]- 0815 Sep, [facility] [place] [facility] [address] [id number] [place] [address]- 3060 Sep, [facility] [place] [facility] [address] [id number] [place] [address]- 1927 Sep, [facility] [place] [facility] [address] [id number] [place] [address]- 0372 Sep, [facility] [place] [facility] [address] [id number] [place] [address]- 6704 Sep, [facility] [place] [facility] [address] [id number] [place] [address]- 9835 Sep, [facility] [place] [facility] [address] [id number] [place] [address]- 5573 Sep, [facility] [place] [facility] [address] [id number] [place] [address]- 5864 Sep, [facility] [place] [facility] [address] [id number] [place] [address]- 2456 Sep, [facility] [place] [facility] [address] [id number] [place] [address]- 7358 Aug, [facility] [place] [facility] [address] [id number] [place] [address] 17 Aug, 2011 [facility] [place] [facility] [address] [id number] [place] [address] 13 Aug, 2011 [facility] [place] [facility] [address] [id number] [place] [address] 10 Aug, 2011 [facility] [place] [facility] [id number] [address] Jul, [facility] [address] [id number] [address] Jul, [facility] [id number] [address] Jul, [facility] [id number] [address] May, [facility] [id number] [place] [address] May, [facility] [id number] [address] May, [facility] [id number] [address] Jan, [facility] [id number] [address] Dec, IMMUNIZATIONS No Known Immunizations SOCIAL HISTORY Never Assessed REASON FOR VISIT arm numbness, Left arm numbness that will not let up. States she has bad neuropathy but this is different. States she has tried everything including stretching, exercises, massages, medication etc etc -[place] Baldwin PLAN OF CARE Activity Details Follow Up MRI pending xray results Reason:new onset left arm numbness VITAL SIGNS Height 68 in 2017-11-13 Weight 334 lbs 2017-11-13 Temperature 98.4 degrees Fahrenheit 2017-11-13 Heart Rate 90 bpm 2017-11-13 Respiratory Rate 18 2017-11-13 BMI 50.78 kg/m2 2017-11-13 Blood pressure systolic 110 mmHg 2017-11-13 Blood pressure diastolic 70 mmHg 2017-11-13 MEDICATIONS Medication Instructions Dosage Frequency Start Date End Date Duration Status Hydrocodone-Acetaminophen 7.5-325 MG Orally daily prn 1/2-1 tablet Sep, Active Amitriptyline HCl 10 mg Orally Once a day at hs 1 tablet 28 Active Cetirizine HCl 10 mg Orally Once a day 1 tablet 24h Active Tizanidine HCl 4 MG Orally 2 times a day 1 tablet as needed 12h 27 Aug, 2017 Nov, 28 days Active Fluticasone Propionate 50 MCG/ACT Nasally Once a day 1 spray in each nostril 24h Active Omeprazole 40 MG Orally Once a day 1 capsule 24h Active Wheelchair - xtra large Jul, Active Pilocarpine HCl 5 MG Orally Three times a day 1 tablet 8h Active RESULTS Name Result Date Reference Range Xray : Elbow, Left 2 views (IN HOUSE) 2017-11-13 Xray : Spine, Cervical (IN HOUSE) 2017-11-13 PROCEDURES Procedure Date Ordered Result Body Site X-RAY EXAM OF NECK SPINE November 13, 2017 X-RAY EXAM OF ELBOW November 13, 2017 INSTRUCTIONS MEDICATIONS ADMINISTERED No Known Medications [...]
--- OUTSIDE RECORDS SUMMARY | 2018-06-15 19:09 | XMS REPORT ---
Author Author LULU CHURCHILL [facility] Address [address] [place] [address] Care Team Providers Care Cafeteria Attendant Name Role Phone LULU CHURCHILL Unavailable PROBLEMS Type Condition ICD9-CM Code SFK59-BX Code Onset Dates Condition Status SNOMED Code Problem Other chronic pain G89.29 Active 88405348 Problem Pre-diabetes R73.03 Active 053231878 Problem Arthritis of both knees M19.90 Active 951679510 Problem Paresthesia of skin R20.2 Active 35528972 Problem Morbid obesity E66.01 Active 869876743 Problem No diagnosis or condition on Olin I Z03.89 Active 5664083 Problem Insomnia due to medical condition G47.01 Active 645845740 Problem Idiopathic neuropathy G60.9 Active Problem Chronic seasonal allergic rhinitis, unspecified trigger J30.2 Active 377124148 Problem Abnormal x-ray of cervical spine R93.7 Active 349641988 Problem Vitamin D deficiency E55.9 Active 59044871 Problem Heartburn R12 Active 85625914 Problem Fibromyalgia M79.7 Active 61239726 Problem Long-term use of high-risk medication Z79.899 Active 405115985 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 [address] [address] Jan, 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 [id number] [place] [address] 70143- 5610 Dec, Encounter for weight loss counseling Z71.3 ; Fibromyalgia M79.7 and BMI 50.0-59.9, adult Z68.43 [place] [address] 8[address]46- 5866 Nov, [place] [address] 94088- 2241 Nov, Morbid obesity E66.01 ; Paresthesia of upper and lower extremities of both sides R20.2 ; Hair loss L65.9 ; Fibromyalgia M79.7 and BMI 50.0-59.9, adult Z68.43 [place] [address] 02749- 8603 Nov, Vitamin D deficiency E55.9 [place] [address] 29029- 6368 Nov, Arthritis of both knees M19.90 and Vitamin D deficiency E55.9 [place] [address] 41934- 9830 Nov, Chronic seasonal allergic rhinitis, unspecified trigger J30.2 and Heartburn R12 [place] [address] [place] [id number] [place] [address] 47467- 8503 Nov, [place] [address] [place] [id number] [place] [address] 31518- 7147 Nov, Vitamin D deficiency E55.9 [place] [address] 32202- 8937 October, Morbid obesity E66.01 ; Hemorrhoids, unspecified hemorrhoid type K64.9 ; Pre-diabetes R73.03 and BMI 50.0-59.9, adult Z68.43 [place] [address] [place] [id number] [place] [address] 02213- 1186 October, [place] [address] 49971- 4132 October, [place] [address] [place] [id number] [place] [address] 85101- 7119 October, Left arm numbness R20.0 ; Paresthesia of skin R20.2 ; Anesthesia of skin R20.0 and BMI 50.0-59.9, adult Z68.43 [place] [address] [place] [id number] [place] [address] 29215- 7061 Sep, BMI 50.0-59.9, adult Z68.43 ; Fibromyalgia M79.7 ; Idiopathic neuropathy G60.9 ; Vitamin D deficiency E55.9 ; Chronic seasonal allergic rhinitis, unspecified trigger J30.2 and Long-term use of high-risk medication Z79.899 [place] [address] 49545- 6599 Aug, Fibromyalgia M79.7 [place] [address] 25361- 7062 Aug, No diagnosis or condition on Olin I Z03.89 [place] [address] 44644- 8521 Aug, Chronic seasonal allergic rhinitis, unspecified trigger J30.2 ; Fibromyalgia M79.7 ; Heartburn R12 ; Pre-diabetes R73.03 ; Change of voice R49.9 and BMI 50.0-59.9, adult Z68.43 [place] [address] [place] [id number] [place] [address] 03895- 5392 Aug, Fibromyalgia M79.7 [place] [address] [place] [id number] [place] [address] 45106- 1307 May, Chronic seasonal allergic rhinitis, unspecified trigger J30.2 ; Vaginal itching L29.8 and Vaginal yeast infection B37.3 [place] [address] [place] [id number] [place] [address] 50263- 8700 May, Arthritis of both knees M19.90 [facility] [address] [address]25 -8410 May, Herpes zoster without complication B02.9 and Vaginal penny B37.3 [place] [address] [place] [id number] [place] [address] 42159- 4901 Mar, [place] [address] [place] [id number] [place] [address] 43694- 9670 Mar, Arthritis of both knees M19.90 [place] [address] 35483- 6299 Mar, Arthritis of both knees M19.90 ; Elevated serum creatinine R79.89 ; Fibromyalgia M79.7 ; Idiopathic neuropathy G60.9 ; Vitamin D deficiency E55.9 ; Pre-diabetes R73.03 and Insomnia due to medical condition G47.01 [place] [address] 03878- 5220 Mar, [place] [address] 42311- 8060 Jan, [place] [address] 89101- 9402 Jan, Pes planus of left foot M21.42 ; Plantar fasciitis of left foot M72.2 and Neuropathy G62.9 [place] [id number] [place] [address] 61939- 4572 Jan, Arthritis of both knees M19.90 ; Fibromyalgia M79.7 ; Idiopathic neuropathy G60.9 ; Vitamin D deficiency E55.9 ; Pre-diabetes R73.03 ; Insomnia due to medical condition G47.01 ; Bad odor of urine R82.90 and SI ( sacroiliac) pain M53.[address] 63554- 7803 Jan, [address] 03269- 3968 Jan, Elevated serum creatinine R79.[address] 95612- 8518 Dec, [facility] [address] [place] [id number] [place] [address] 74541- 9812 Dec, Arthritis of both knees M19.90 ; Fibromyalgia M79.7 ; Idiopathic neuropathy G60.9 ; Vitamin D deficiency E55.9 and Pre-diabetes R73.03 [facility] [address] [place] [id number] [place] [address] 81458- 4525 Dec, Arthritis of both knees M19.90 [place] [address] [place] [id number] [place] [address] 13678- 6545 October, [place] [address] 53512- 7061 October, [facility] [address] [place] [id number] [place] [address] 10176- 7891 October, Fibromyalgia M79.7 [place] [address] [place] [id number] [place] [address] 93750- 9682 October, Skin tag L91.8 ; Left foot pain M79.672 and Rash and nonspecific skin eruption R21 [place] [address] [place] [id number] [place] [address] 78556- 3413 Aug, [facility] [address] [place] [id number] [place] [address] 19017- 5343 Aug, Arthritis of both knees M19.90 ; Fibromyalgia M79.7 ; Idiopathic neuropathy G60.9 ; Vitamin D deficiency E55.9 ; Morbid obesity due to excess calories E66.01 and History of prediabetes Z87.898 [facility] [id number] [place] [address] 71778 -8347 Aug, Blood in ear canal, right H92.21 [facility] [address] [place] [id number] [place] [address] 48115- 5243 Jul, [facility] [address] [place] [id number] [place] [address] 23266- 6642 19 Bob, 2017 Arthritis of both knees M19.90 ; Fibromyalgia M79.7 ; Idiopathic neuropathy G60.9 and Vitamin D deficiency E55.9 [facility] [address] 92420- 1312 Jul, Fibromy[address] M79.7 [facility] [address] [place] [id number] [place] [address] 63129- 8846 May, Fibromyalgia M79.7 ; Idiopathic neuropathy G60.9 ; Vitamin D deficiency E55.9 ; Memory change R41.3 ; Xerostomia K11.[address] [facility] [address] 32625- 4048 May, Fibromyalgia M79.7 ; Idiopathic neuropathy G60.9 ; Vitamin D deficiency E55.9 and Memory change R41.3 [place] [address] 67090- 3590 May, [facility] [address] 45072- 1295 Mar, [facility] [address] 54588- 2787 Jan, [facility] [address] 00350- 8913 Jan, [facility] [address] [place] [id number] [place] [address] 26386- 1269 Jan, Dermatitis L30.9 ; Pain in right shoulder M25.511 ; Fibromyalgia M79.7 and H/O right knee surgery Z98.89 [facility] [address] [place] [id number] [place] [address] 25574- 9198 Dec, [facility] [address] 85628- 3764 Dec, Middle ear effusion, right H65.91 ; Fibromyalgia M79.7 and Heartburn R12 [facility] [address] [place] [id number] [place] [address] 96176 -8616 Dec, Otalgia of right ear H92.01 and Middle ear effusion, right H65.91 [place] [address] [place] [id number] [place] [address] 36771- 9998 Nov, Acute pain of right knee M25.561 [place] [address] [place] [id number] [place] [address] 31255- 4846 Nov, [place] [address] 60873- 1929 Nov, Acute pain of right knee M25.561 [place] [address] [place] [id number] [place] [address] 26165- 9267 October, Osteoarthritis of both knees, unspecified osteoarthritis type M17.0 [place] [address] [place] [id number] [place] [address] 64947- 0702 October, [place] [address] [place] [id number] [place] [address] 36225- 0186 Sep, [place] [address] [place] [id number] [place] [address] 87531- 4170 Sep, Fibromyalgia M79.7 ; Chronic fatigue R53.82 ; Sinusitis J32.9 ; Bronchiolitis J21.9 ; Weight gain R63.5 and Heartburn R12 [place] [address] [place] [id number] [place] [address] 53387- 4322 Sep, Mild hearing loss of right ear H91.91 and Tinnitus of right ear H93.11 [place] [address] [place] [id number] [place] [address] 88777- 9970 Aug, [place] [address] [place] [id number] [place] [address] 71317- 7089 Aug, [place] [address] [place] [id number] [place] [address] 19975- 3786 Aug, Fibromyalgia M79.7 and Depression F32.9 [place] [address] [place] [id number] [place] [address] 12897- 8081 Aug, [place] [address] [place] [id number] [place] [address] 87446- 7197 Jul, Fibromyalgia M79.7 ; 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 ; Vitamin D deficiency E55.9 ; Long-term use of high-risk medication Z79.899 ; Heartburn R12 ; Chronic fatigue, unspecified R53.82 and Tinnitus of right ear H93.[address] 06816- 4556 Mar, Fibromyalgia M79.7 ; 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 ; Vitamin D deficiency E55.9 ; Diarrhea R19.7 ; Long-term use of high- risk medication Z79.899 and Heartburn R12 [place] [id number] [place] [address] 39019- 4045 Mar, Fibromyalgia 729.1 ; Unspecified hereditary and idiopathic peripheral neuropathy 356.9 ; Unspecified sleep disturbance 780.50 ; Left ankle pain 719.47 and Insomnia 780.52 [place] [id number] [place] [address] 94096- 2595 Mar, Unspecified episodic mood disorder 296.90 and Anxiety state , unspecified 300.00 [place] [id number] [place] [address] 84871- 0782 Mar, Chondromalacia of right knee 717.7 [place] [id number] [place] [address] 39533- 2860 Jan, [place] [id number] [place] [address] 99734- 1542 Dec, Left foot pain 729.[address] 27070- 5961 Sep, [place] [id number] [place] [address] 07923- 9443 Sep, [address] 02168- 6079 17 Aug, 2014 [facility] [place] [facility] [address] [id number] [place] [address]- 0156 17 Aug, 2014 [facility] [place] [facility] [address] [id number] [place] [address]- 6988 16 Aug, 2014 [facility] [place] [facility] [address] [id number] [place] [address]- 4346 16 Aug, 2014 [facility] [place] [facility] [address] [id number] [place] [address]- 1488 11 Aug, 2014 [facility] [place] [facility] [address] [id number] [place] [address]- 0043 11 Aug, 2014 [facility] [place] [facility] [address] [id number] [place] [address]- 7155 11 Aug, 2014 [facility] [place] [facility] [address] [id number] [place] [address]- 6994 11 Aug, 2014 [facility] [place] [facility] [address] [id number] [place] [address]- 3924 10 Aug, 2014 [facility] [place] [facility] [address] [id number] [place] [address]- 6066 10 Aug, 2014 [facility] [place] [facility] [address] [id number] [place] [address]- 9585 05 Aug, 2014 [facility] [place] [facility] [address] [id number] [place] [address]- 3513 05 Aug, 2014 [facility] [place] [facility] [address] [id number] [address]- 9689 Aug, 2014 [facility] [place] [facility] [address] [id number] [place] [address]- 9713 Aug, 2014 [facility] [place] [facility] [address] [id number] [place] [address]- 2049 Aug, [facility] [place] [facility] [address] [facility] [id number] [place] [address]- 8705 Aug, 2014 [facility] [place] [facility] [address] [id number] [place] [address]- 7666 Jul, [facility] [address] [id number] [place] [address]- 4288 Jul, [facility] [place] [facility] [address] [id number] [place] [address]- 3181 Jul, [facility] [address] [id number] [place] [address]- 7373 Jul, [facility] [place] [facility] [address] [id number] [place] [address]- 8340 May, [facility] [address] [id number] [place] [address]- 6282 May, [facility] [place] [facility] [address] [id number] [place] [address]- 4598 May, [facility] [place] [facility] [address] [id number] [place] [address]- 0650 Mar, [facility] [place] [facility] [address] [id number] [place] [address]- 8542 Mar, [facility] [place] [facility] [address] [id number] [place] [address]- 1713 Mar, [facility] [place] [facility] [address] [facility] [id number] [place] [address]- 7084 Mar, [facility] [place] [facility] [address] [id number] [place] [address]- 4169 Dec, [facility] [place] [facility] [address] [id number] [place] [address]- 0561 Dec, [facility] [place] [facility] [address] [id number] [place] [address]- 0573 Nov, [facility] [place] [facility] [address] [id number] [place] [address]- 4906 Nov, [facility] [place] [facility] [address] [id number] [place] [address]- 4058 Nov, [facility] [place] [facility] [address] [id number] [place] [address]- 7940 Nov, [facility] [place] [facility] [address] [id number] [place] [address]- 2658 Nov, [facility] [place] [facility] [address] [id number] [place] [address]- 0283 Nov, [facility] [place] [facility] [address] [id number] [place] [address]- 9565 October, [facility] [place] [facility] [address] [id number] [place] [address]- 3075 October, [facility] [place] [facility] [address] [id number] [place] [address]- 1228 October, [facility] [place] [facility] [address] [id number] [place] [address]- 0893 October, [facility] [place] [facility] [address] [id number] [place] [address]- 2194 October, [facility] [place] [facility] [address] [id number] [place] [address]- 7756 October, [facility] [place] [facility] [address] [id number] [place] [address]- 6964 October, [facility] [place] [facility] [address] [id number] [place] [address]- 5849 October, [facility] [place] [facility] [address] [id number] [place] [address]- 3946 October, [facility] [place] [facility] [address] [id number] [place] [address]- 1427 October, [facility] [place] [facility] [address] [id number] [place] [address]- 9975 October, [facility] [place] [facility] [address] [id number] [place] [address]- 8734 October, [facility] [place] [facility] [address] [id number] [place] [address]- 8247 October, [facility] [place] [facility] [address] [id number] [place] [address]- 7943 Sep, [facility] [place] [facility] [address] [id number] [place] [address]- 3700 Sep, [facility] [place] [facility] [address] [facility] [id number] [place] [address]- 5136 Aug, [facility] [place] [facility] [address] [id number] [place] [address]- 9578 Aug, [facility] [place] [facility] [address] [id number] [place] [address]- 1940 Aug, [facility] [place] [facility] [address] [id number] [place] [address]- 8698 Aug, [facility] [place] [facility] [address] [facility] [id number] [place] [address]- 1182 Aug, [facility] [place] [facility] [address] [facility] [id number] [place] [address]- 1374 Aug, [facility] [place] [facility] [address] [facility] [id number] [place] [address]- 4543 Aug, [facility] [place] [facility] [address] [facility] [id number] [place] [address]- 1308 Aug, [facility] [place] [facility] [address] [id number] [place] [address]- 9303 Aug, [facility] [place] [facility] [address] [id number] [place] [address]- 4161 Aug, [facility] [place] [facility] [address] [id number] [place] [address]- 4837 Aug, [facility] [place] [facility] [address] [id number] [place] 9729 Aug, [facility] [place] [facility] [address] [facility] [id number] [place] [address]- 4720 Jul, [facility] [place] [facility] [address] [id number] [place] [address]- 7518 Jul, [facility] [address] [id number] [place] [address]- 1206 Jul, [facility] [place] [facility] [address] [id number] [place] [address]- 8931 Jul, [facility] [address] [id number] [place] [address]- 6594 Mar, [facility] [address] [id number] [place] [address]- 1323 Mar, [facility] [place] [facility] [address] [id number] [place] [address]- 1233 Jan, [facility] [address] [id number] [place] [address]- 4297 Sep, [facility] [address] [id number] [place] [address]- 2499 Aug, [facility] [address] [id number] [place] [address]- 1992 Aug, [facility] [address] [id number] [place] [address]- 6014 Aug, [facility] [address] [id number] [place] [address]- 6720 Aug, [facility] [address] [id number] [address]- 5976 Aug, [facility] [place] [facility] [address] [id number] [place] [address]- 4501 October, [facility] [place] [facility] [address] [id number] [place] [address]- 9016 October, [facility] [place] [facility] [address] [id number] [place] [address]- 0208 Sep, [facility] [place] [facility] [address] [id number] [address]- 8857 26 Sep, 2011 [facility] [address] [id number] [place] [address]- 2613 25 Sep, 2011 [facility] [place] [facility] [address] [id number] [place] [address]- 5102 19 Sep, 2011 [facility] [address] [id number] [place] [address]- 4289 18 Sep, 2011 [facility] [place] [facility] [address] [id number] [place] [address]- 1109 11 Sep, 2011 [facility] [address] [id number] [place] [address]- 8464 Sep, [facility] [address] [id number] [place] [address]- 1851 09 Sep, 2011 [facility] [address] [id number] [place] [address]- 6450 07 Sep, 2011 [facility] [place] [facility] [address] [id number] [place] [address] 06 Sep, 2011 [facility] [address] [id number] [place] [address] 07 Aug, 2011 [facility] [address] [id number] [place] [address] 17 Aug, 2011 [facility] [address] [id number] [place] [address] 13 Aug, 2011 [facility] [place] [facility] [address] [id number] [place] [address] 10 Aug, 2011 [facility] [place] [facility] [address] [id number] [place] [address] Jul, [facility] [place] [facility] [address] [id number] [place] [address] Jul, [facility] [place] [facility] [address] [id number] [address] Jul, [facility] [address] [facility] [id number] [place] [id number] May, [facility] [address] [facility] [id number] [address] May, [facility] [address] [facility] [id number] [address] May, [facility] [address] [facility] [id number] [address] Jan, [facility] [address] [facility] [id number] [address] Dec, IMMUNIZATIONS No Known Immunizations SOCIAL HISTORY [...]
--- OUTSIDE RECORDS SUMMARY | 2018-06-15 19:10 | XMS REPORT ---
Author Author MILIND CHU [facility] Address [address] [place] [address] Care Team Providers Care Film Technician Name Role Phone MILIND CHU Unavailable PROBLEMS Type Condition ICD9-CM Code PSG21-EB Code Onset Dates Condition Status SNOMED Code Problem Other chronic pain G89.29 Active 98979509 Problem Pre-diabetes R73.03 Active 802807340 Problem Arthritis of both knees M19.90 Active 712502049 Problem Paresthesia of skin R20.2 Active 41709540 Problem Morbid obesity E66.01 Active 070102361 Problem No diagnosis or condition on [place] I Z03.89 Active 6101742 Problem Insomnia due to medical condition G47.01 Active 912183927 Problem Idiopathic neuropathy G60.9 Active Problem Chronic seasonal allergic rhinitis, unspecified trigger J30.2 Active 206145562 Problem Abnormal x-ray of cervical spine R93.7 Active 036409692 Problem Vitamin D deficiency E55.9 Active 86243919 Problem Heartburn R12 Active 45370979 Problem Fibromyalgia M79.7 Active 57446096 Problem Long-term use of high-risk medication Z79.899 Active 209203524 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 38866387 Problem Depression F32.9 Active 37159843 ALLERGIES Substance Reaction Event Type Date Status Neurontin Unknown Drug Allergy Sep, Active Naproxen Unknown Drug Allergy Sep, Active Lyrica Nausea, diarrhea, headaches Drug Allergy Sep, Active Effexor Unknown Drug Allergy Sep, Active Demerol Unknown Drug Allergy Sep, Active Cymbalta 30 Mg Capsule, Delayed Release(e.c.) Unknown Non Drug Allergy Sep, Active ENCOUNTERS Encounter Location Date Diagnosis [facility] [place] [address] [facility] [id number] [place] [address] Jan, [facility] [place] [address] [place] [place] [id number] [place] [address]- 2815 Dec, Weight loss counseling, encounter for Z71.3 ; BMI 50.0-59.9 , adult Z68.43 ; 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 ; Abnormal x-ray of cervical spine R93.7 and Vitamin D deficiency E55.9 [place] [address] [address]- [address] Dec, Encounter for weight loss counseling Z71.3 ; Fibromyalgia M79.7 and BMI 50.0-59.9, adult Z68.43 [place] [address] [address]- 7867 Nov, [place] [address] 04458- 4152 Nov, Morbid obesity E66.01 ; Paresthesia of upper and lower extremities of both sides R20.2 ; Hair loss L65.9 ; Fibromyalgia M79.7 and BMI 50.0-59.9, adult Z68.43 [place] [address] 43291- 5255 Nov, Vitamin D deficiency E55.9 [place] [address] 71404- 7518 Nov, Arthritis of both knees M19.90 and Vitamin D deficiency E55.9 [place] [address] 37377- 9947 Nov, Chronic seasonal allergic rhinitis, unspecified trigger J30.2 and Heartburn R12 [place] [address] [place] [id number] [place] [address] 02748- 9425 Nov, [place] [address] 39942- 9993 Nov, Vitamin D deficiency E55.9 [place] [address] 93641- 5881 October, Morbid obesity E66.01 ; Hemorrhoids, unspecified hemorrhoid type K64.9 ; Pre-diabetes R73.03 and BMI 50.0-59.9, adult Z68.43 [place] [address] 61301- 1401 October, [place] [address] 75225- 0241 October, [place] [address] 55955- 8461 October, Left arm numbness R20.0 ; Paresthesia of skin R20.2 ; Anesthesia of skin R20.0 and BMI 50.0-59.9, adult Z68.43 [place] [address] 48485- 8029 Sep, BMI 50.0-59.9, adult Z68.43 ; Fibromyalgia M79.7 ; Idiopathic neuropathy G60.9 ; Vitamin D deficiency E55.9 ; Chronic seasonal allergic rhinitis, unspecified trigger J30.2 and Long-term use of high-risk medication Z79.899 [place] [address] 12597- 7165 Aug, Fibromyalgia M79.7 [place] [address] 68809- 2332 Aug, No diagnosis or condition on [place] I Z03.89 [place] [address] 65545- 3066 Aug, Chronic seasonal allergic rhinitis, unspecified trigger J30.2 ; Fibromyalgia M79.7 ; Heartburn R12 ; Pre-diabetes R73.03 ; Change of voice R49.9 and BMI 50.0-59.9, adult Z68.43 [place] [address] 16893- 7264 Aug, Fibromyalgia M79.7 [place] [address] 70362- 9167 27 Dec, 2017 Chronic seasonal allergic rhinitis, unspecified trigger J30.2 ; Vaginal itching L29.8 and Vaginal yeast infection B37.3 [facility] [place] [address] 10138- 2568 May, Arthritis of both knees M19.90 [facility] [id number] [place] [address] 26201 -5614 May, Herpes zoster without complication B02.9 and Vaginal penny B37.3 [facility] [place] [id number] [place] [address] 75832- 7680 Mar, [facility] [place] [address] 73777- 4141 Mar, Arthritis of both knees M19.90 [place] [address] 64565- 7766 Mar, Arthritis of both knees M19.90 ; Elevated serum creatinine R79.89 ; Fibromyalgia M79.7 ; Idiopathic neuropathy G60.9 ; Vitamin D deficiency E55.9 ; Pre-diabetes R73.03 and Insomnia due to medical condition G47.01 [facility] [place] [address] [id number] [place] [address] 78801- 4368 Mar, [place] [address] [place] [id number] [place] [address] 16750- 9778 Jan, [place] [address] 15693- 6531 Jan, Pes planus of left foot M21.42 ; Plantar fasciitis of left foot M72.2 and Neuropathy G62.9 [facility] [place] [address] [id number] [place] [address] 79465- 5618 Jan, Arthritis of both knees M19.90 ; Fibromyalgia M79.7 ; Idiopathic neuropathy G60.9 ; Vitamin D deficiency E55.9 ; Pre-diabetes R73.03 ; Insomnia due to medical condition G47.01 ; Bad odor of urine R82.90 and SI ( sacroiliac) pain M53.3 [place] [address], [place] [address] Jan, [place] [address] [place] [id number] [place] [address] 16625- 7246 Jan, Elevated serum creatinine R79.89 [facility] [place] [id number] [place] [address] 20618- 1469 Dec, [place] [address] [id number] [place] [address] 53580- 2215 Dec, Arthritis of both knees M19.90 ; Fibromyalgia M79.7 ; Idiopathic neuropathy G60.9 ; Vitamin D deficiency E55.9 and Pre-diabetes R73.03 [place] [address] [place] [id number] [place] [address] 48188- 6591 Dec, Arthritis of both knees M19.90 [place] [address] [place] [id number] [place] [address] 07547- 8862 October, [place] [address] [id number] [place] [address] 24936- 8407 October, [place] [address] [place] [id number] [place] [address] 96671- 8373 October, Fibromyalgia M79.7 [facility] [place] [address] [place] [id number] [place] [address] 63033- 5271 October, Skin tag L91.8 ; Left foot pain M79.672 and Rash and nonspecific skin eruption R21 [place] [address] [place] [id number] [place] [address] 72340- 1610 Aug, [place] [address] [place] [id number] [place] [address] 95013- 6600 Aug, Arthritis of both knees M19.90 ; Fibromyalgia M79.7 ; Idiopathic neuropathy G60.9 ; Vitamin D deficiency E55.9 ; Morbid obesity due to excess calories E66.01 and History of prediabetes Z87.898 [facility] [address] [place] [address] 79499 -7451 Aug, Blood in ear canal, right H92.21 [place] [address] [id number] [place] [address] 27161- 4362 Jul, [place] [address] [id number] [place] [address] 31046- 9719 Jul, Arthritis of both knees M19.90 ; Fibromyalgia M79.7 ; Idiopathic neuropathy G60.9 and Vitamin D deficiency E55.9 [place] [address] [id number] [place] [address] 04172- 1355 Jul, Fibromyalgia M79.7 [place] [address] 66489- 9619 May, Fibromyalgia M79.7 ; Idiopathic neuropathy G60.9 ; Vitamin D deficiency E55.9 ; Memory change R41.3 ; Xerostomia K11.7 and Heartburn R12 [place] [address] [id number] [place] [address] 92193- 4642 May, Fibromyalgia M79.7 ; Idiopathic neuropathy G60.9 ; Vitamin D deficiency E55.9 and Memory change R41.3 [place] [address] [id number] [place] [address] 18291- 0938 May, [place] [address] [address] [id number] [place] [address] 76318- 6002 Mar, [place] [address] [address] [id number] [place] [address] 06201- 2885 Jan, [place] [address] [id number] [place] [address] 25958- 2261 Jan, [place] [address] 28371- 9271 Jan, Dermatitis L30.9 ; Pain in right shoulder M25.511 ; Fibromyalgia M79.7 and H/O right knee surgery Z98.89 [place] [address] 22310- 5584 Dec, [facility] [place] [address] [place] [address] 94040- 5812 Dec, Middle ear effusion, right H65.91 ; Fibromyalgia M79.7 and Heartburn R12 [facility] [address], [place] [address] Dec, Otalgia of right ear H92.01 and Middle ear effusion, right H65.91 [facility] [place] [id number] [place] [address] 90337- 9679 Nov, Acute pain of right knee M25.561 [place] [address] [id number] [place] [address] 40139- 0319 Nov, [place] [address] [id number] [place] [address] 61424- 2819 Nov, Acute pain of right knee M25.561 [facility] [place] [id number] [place] [address] 70358- 8885 October, Osteoarthritis of both knees, unspecified osteoarthritis type M17.0 [facility] [place] [id number] [place] [address] 99703- 0241 October, [facility] [place] [id number] [place] [address] 74018- 7705 Sep, [facility] [place] [id number] [place] [address] 89434- 0434 Sep, Fibromyalgia M79.7 ; Chronic fatigue R53.82 ; Sinusitis J32.9 ; Bronchiolitis J21.9 ; Weight gain R63.5 and Heartburn R12 [facility] [place] [id number] [place] [address] 29110- 8122 Sep, Mild hearing loss of right ear H91.91 and Tinnitus of right ear H93.11 [facility] [place] [id number] [place] [address] 04492- 5352 Aug, [facility] [place] [address] [place] [address]- 8084 Aug, [place] [address] [id number] [place] [address] 47383- 0433 Aug, Fibromyalgia M79.7 and Depression F32.9 [place] [id number] [place] [address] 85495- 8858 Aug, [place] [address] 41317- 9109 Jul, Fibromyalgia M79.7 ; 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 ; Vitamin D deficiency E55.9 ; Long-term use of high-risk medication Z79.899 ; Heartburn R12 ; Chronic fatigue, unspecified R53.82 and Tinnitus of right ear H93.11 [place] [id number] [place] [address] 71253- 2865 Mar, Fibromyalgia M79.7 ; 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 ; Vitamin D deficiency E55.9 ; Diarrhea R19.7 ; Long-term use of high- risk medication Z79.899 and Heartburn R12 [place] [address] [id number] [place] [address] 41829- 7549 Mar, Fibromyalgia 729.1 ; Unspecified hereditary and idiopathic peripheral neuropathy 356.9 ; Unspecified sleep disturbance 780.50 ; Left ankle pain 719.47 and Insomnia 780.52 [place] [address] [place] [id number] [place] [address] 25471- 0630 Mar, Unspecified episodic mood disorder 296.90 and Anxiety state , unspecified 300.00 [place] [address] [id number] [place] [address] 71761- 9901 Mar, Chondromalacia of right knee 717.7 [place] [address] [id number] [place] [address] 69403- 2817 Jan, [place] [address] [id number] [place] [address] 75146- 0732 Dec, Left foot pain 729.5 [facility] [place] [facility] [address] [id number] [place] [address]- 0329 14 Sep, 2014 [facility] [place] [facility] [address] [id number] [place] [address]- 7058 13 Sep, 2014 [facility] [place] [facility] [address] [id number] [place] [address]- 7867 17 Aug, 2014 [facility] [place] [facility] [address] [id number] [place] [address]- 1422 17 Aug, 2014 [facility] [place] [facility] [address] [id number] [place] [address]- 0396 16 Aug, 2014 [facility] [place] [facility] [address] [id number] [place] [address]- 2168 16 Aug, 2014 [facility] [place] [facility] [address] [id number] [place] [address]- 9609 11 Aug, 2014 [facility] [place] [facility] [address] [id number] [place] [address]- 5629 11 Aug, 2014 [facility] [place] [facility] [address] [id number] [place] [address]- 7659 11 Aug, 2014 [facility] [place] [facility] [address] [id number] [place] [address]- 9260 11 Aug, 2014 [facility] [place] [facility] [address] [id number] [place] [address]- 4931 10 Aug, 2014 [facility] [place] [facility] [address] [id number] [place] [address]- 2690 10 Aug, 2014 [facility] [place] [facility] [address] [id number] [place] [address]- 4079 05 Aug, 2014 [facility] [place] [facility] [address] [id number] [place] [address]- 6223 05 Aug, 2014 [facility] [place] [facility] [address] [id number] [place] [address]- 7507 12 Aug, 2014 [facility] [place] [facility] [address] [id number], [place] [address]- 8859 Aug, [facility] [place] [facility] [address] [id number] [place] [address]- 2862 Aug, [facility] [place] [facility] [address] [id number], [place] [address]- 9120 Aug, [facility] [place] [facility] [address] [facility] [id number] [place] [address]- 3832 Jul, [facility] [place] [facility] [address] [id number] [place] [address]- 0422 Jul, [facility] [place] [facility] [address] [facility] [id number] [place] [address]- 9357 Jul, [facility] [place] [facility] [address] [facility] [id number] [place] [address]- 9051 Jul, [facility] [place] [facility] [address] [facility] [id number], [place] [address]- 6318 May, [facility] [place] [facility] [address] [facility] [id number], [place] [address]- 4564 May, [facility] [place] [facility] [address] [facility] [id number], [place] [address]- 1219 May, [facility] [place] [facility] [address] [facility] [id number], [place] [address]- 5017 Mar, [facility] [place] [facility] [address] [facility] [id number], [place] [address]- 2644 Mar, [facility] [place] [facility] [address] [facility] [id number], [place] [address]- 6259 Mar, [facility] [place] [facility] [address] [id number], [place] [address]- 1188 Mar, [facility] [place] [facility] [address] [facility] [id number] 9217 Dec, [facility] [place] [facility] [address] [facility] [id number], [place] [address]- 8685 Dec, [facility] [place] [facility] [address] [id number] [place] [address]- 8593 Nov, [facility] [place] [facility] [address] [id number] [place] 7525 Nov, [facility] [place] [facility] [address] [id number] [place] [address]- 6977 Nov, [facility] [place] [facility] [address] [id number] [place] [address]- 5011 Nov, [facility] [place] [facility] [address] [id number] [place] [address]- 6809 Nov, [facility] [place] [facility] [address] [id number] [place] [address]- 5562 Nov, [facility] [place] [facility] [address] [id number] [place] [address]- 3607 October, [facility] [place] [facility] [address] [id number] [place] [address]- 6363 October, [facility] [place] [facility] [address] [id number] [place] [address]- 0301 October, [facility] [place] [facility] [address] [id number] [place] [address]- 6148 October, [facility] [place] [facility] [address] [id number] [place] [address]- 3496 October, [facility] [place] [facility] [address] [id number] [place] [address]- 4514 October, [facility] [place] [facility] [address] [id number] [place] [address]- 7087 October, [facility] [place] [facility] [address] [id number] [place] 2953 October, [facility] [place] [facility] [address] [id number] [place] [address]- 6452 October, [facility] [place] [facility] [address] [id number] [place] [address]- 9367 October, [facility] [place] [facility] [address] [id number] [place] [address]- 1644 October, [facility] [place] [facility] [address] [id number] [place] [address]- 1577 October, [facility] [place] [facility] [address] [id number] [place] [address]- 1513 October, [facility] [place] [facility] [address] [id number] [place] [address]- 9591 Sep, [facility] [place] [facility] [address] [id number] [place] [address]- 7709 Sep, [facility] [place] [facility] [address] [id number] [place] [address]- 1527 Aug, [facility] [place] [facility] [address] [id number] [place] [address]- 5667 Aug, [facility] [place] [facility] [address] [id number] [place] [address]- 1651 Aug, [facility] [place] [facility] [address] [id number] [place] [address]- 8631 Aug, [facility] [place] [facility] [address] [id number] [place] [address]- 9936 Aug, [facility] [place] [facility] [address] [id number] [place] [address]- 0269 Aug, [facility] [place] [facility] [address] [id number], [place] [address]- 8139 Aug, [facility] [place] [facility] [address] [id number] [place] [address]- 6033 Aug, [facility] [place] [facility] [address] [id number] [place] [address]- 6255 Aug, [facility] [place] [facility] [address] [id number] [place] [address]- 2294 Aug, [facility] [place] [facility] [address] [id number] [place] [address]- 4801 05 Aug, 2013 [facility] [address] [id number] [place] [address]- 5781 Aug, [facility] [address] [id number] [place] [address]- 1980 Jul, [facility] [address] [id number] [place] [address]- 9615 Jul, [facility] [address] [id number] [place] [address]- 1005 Jul, [facility] [address] [id number] [place] [address]- 7606 Jul, [facility] [address] [id number] [place] [address]- 9283 Mar, [facility] [address] [id number] [place] [address]- 3482 Mar, [facility] [address] [id number] [place] [address]- 1065 Jan, [facility] [address] [id number] [place] [address]- 3108 Sep, [facility] [address] [id number] [place] [address]- 3271 14 Aug, 2012 [facility] [place] [facility] [address] [id number] [place] [address]- 1903 12 Aug, 2012 [facility] [address] [id number] [place] [address]- 5715 08 Aug, 2012 [facility] [place] [facility] [address] [id number] [place] [address]- 2576 07 Aug, 2012 [facility] [place] [facility] [address] [id number] [place] [address]- 7096 05 Aug, 2012 [facility] [place] [facility] [address] [id number], [place] [address]- 2709 October, [facility] [place] [facility] [address] [id number] [place] [address]- 4961 October, [facility] [place] [facility] [address] [id number] [place] [address] Sep, [facility] [place] [facility] [address] [id number] [place] [address] Sep, [facility] [place] [facility] [address] [id number] [place] [address] Sep, [facility] [place] [facility] [address] [id number] [place] [address] Sep, [facility] [place] [facility] [address] [id number] [place] [address] Sep, [facility] [place] [facility] [address] [id number] [place] [address] Sep, [facility] [place] [facility] [address] [id number] [place] [address] Sep, [facility] [place] [facility] [address] [id number] [place] [address] Sep, [facility] [place] [facility] [address] [id number] [place] [address] Sep, [facility] [place] [facility] [address] [id number] [place] [address] Sep, [facility] [place] [facility] [address] [id number] [place] [address] Aug, [facility] [place] [facility] [address] [id number] [place] [address] 17 Aug, 2011 [facility] [place] [facility] [address] [id number] [place] [address] 13 Aug, 2011 [facility] [place] [facility] [address] [id number] [place] [address] 10 Aug, 2011 [facility] [place] [facility] [address] [id number] [address] Jul, [facility] [place] [address] [id number] [address] Jul, [facility] [place] [id number], [place] [address] Jul, [facility] [place] [id number], [place] [address] May, [facility] [place] [id number], [place] [address] May, [facility] [place] [id number], [place] [address] May, [facility] [place] [id number], [place] [address] Jan, [facility] [place] [id number], [place] [address] Dec, IMMUNIZATIONS No Known Immunizations SOCIAL HISTORY Never Assessed REASON FOR VISIT fibromyalgia follow up-Sean PLAN OF CARE Activity Details Follow Up 4 Weeks Reason:pain VITAL SIGNS Height 68 in 2017-10-15 Weight 334.2 lbs 2017-10-15 Temperature 97.9 degrees Fahrenheit 2017-10-15 Heart Rate 84 bpm 2017-10-15 Respiratory Rate 20 2017-10-15 BMI 50.81 kg/m2 2017-10-15 Blood pressure systolic 128 mmHg 2017-10-15 Blood pressure diastolic 74 mmHg 2017-10-15 MEDICATIONS Medication Instructions Dosage Frequency Start Date End Date Duration Status Wheelchair - xtra large Jul, Active Pilocarpine HCl 5 MG Orally Three times a day 1 tablet 8h Active Fluticasone Propionate 50 MCG/ACT Nasally Once a day 1 spray in each nostril 24h Active Amitriptyline HCl 10 mg Orally Once a day at hs 1 tablet Aug, 28 days Active Omeprazole 40 MG Orally Once a day 1 capsule 24h Active Cetirizine HCl 10 mg Orally Once a day 1 tablet 24h Active Hydrocodone-Acetaminophen 7.5-325 MG Orally daily prn 1/2-1 tablet Sep, Active Tizanidine HCl 4 MG Orally 2 times a day 1 tablet as needed 12h 27 Aug, 2017 Nov, 28 days Active RESULTS No Results PROCEDURES No [...]
--- OUTSIDE RECORDS SUMMARY | 2018-06-15 19:10 | XMS REPORT ---
Author Author MILIND CHU [facility] Address [address] [place] [address] Care Team Providers Care Marriage And Family Counselor Name Role Phone MILIND CHU Unavailable PROBLEMS Type Condition ICD9-CM Code GID18-AZ Code Onset Dates Condition Status SNOMED Code Problem Other chronic pain G89.29 Active 00342291 Problem Pre-diabetes R73.03 Active 930293493 Problem Arthritis of both knees M19.90 Active 809898006 Problem Paresthesia of skin R20.2 Active 49357820 Problem Morbid obesity E66.01 Active 882375479 Problem No diagnosis or condition on [place] I Z03.89 Active 9055220 Problem Insomnia due to medical condition G47.01 Active 689546304 Problem Idiopathic neuropathy G60.9 Active Problem Chronic seasonal allergic rhinitis, unspecified trigger J30.2 Active 896271642 Problem Abnormal x-ray of cervical spine R93.7 Active 741385844 Problem Vitamin D deficiency E55.9 Active 73225736 Problem Heartburn R12 Active 71550126 Problem Fibromyalgia M79.7 Active 23402756 Problem Long-term use of high-risk medication Z79.899 Active 709971450 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 94598762 Problem Depression F32.9 Active 67784607 ALLERGIES No Information ENCOUNTERS Encounter Location Date Diagnosis [place] [id number] [address] Dec, [place] [id number] [place] [address] 38211- 1947 Dec, Encounter for weight loss counseling Z71.3 ; Fibromyalgia M79.7 and BMI 50.0-59.9, adult Z68.43 [place] [id number] [place] [address] 13416- 1647 Nov, [place] [id number] [place] [address] 45738- 9003 Nov, Morbid obesity E66.01 ; Paresthesia of upper and lower extremities of both sides R20.2 ; Hair loss L65.9 ; Fibromyalgia M79.7 and BMI 50.0-59.9, adult Z68.43 [place] [id number] [place] [address] 54589- 3805 Nov, Vitamin D deficiency E55.9 [place] [id number] [place] [address] 34956- 8085 Nov, Arthritis of both knees M19.90 and Vitamin D deficiency E55.9 [place] [id number] [place] [address] 84468- 3395 Nov, Chronic seasonal allergic rhinitis, unspecified trigger J30.2 and Heartburn R12 [place] [id number] [place] [address] 12324- 5728 Nov, [place] [id number] [place] [address] 37735- 3958 Nov, Vitamin D deficiency E55.9 [place] [id number] [place] [address] 28417- 5937 October, Morbid obesity E66.01 ; Hemorrhoids, unspecified hemorrhoid type K64.9 ; Pre-diabetes R73.03 and BMI 50.0-59.9, adult Z68.43 [place] [id number] [place] [address] 02181- 9071 October, [place] [id number] [place] [address] 58156- 2031 October, [place] [id number] [place] [address] 10263- 4105 October, Left arm numbness R20.0 ; Paresthesia of skin R20.2 ; Anesthesia of skin R20.0 and BMI 50.0-59.9, adult Z68.43 [place] [address] 40208- 4267 Sep, BMI 50.0-59.9, adult Z68.43 ; Fibromyalgia M79.7 ; Idiopathic neuropathy G60.9 ; Vitamin D deficiency E55.9 ; Chronic seasonal allergic rhinitis, unspecified trigger J30.2 and Long-term use of high-risk medication Z79.899 [place] [address] 78943- 3092 Aug, Fibromyalgia M79.7 [place] [address] 74262- 2143 Aug, No diagnosis or condition on [place] I Z03.89 [place] [address] 29060- 9589 Aug, Chronic seasonal allergic rhinitis, unspecified trigger J30.2 ; Fibromyalgia M79.7 ; Heartburn R12 ; Pre-diabetes R73.03 ; Change of voice R49.9 and BMI 50.0-59.9, adult Z68.43 [place] [address] 05213- 3918 Aug, Fibromyalgia M79.7 [place] [address] 65174- 7586 May, Chronic seasonal allergic rhinitis, unspecified trigger J30.2 ; Vaginal itching L29.8 and Vaginal yeast infection B37.[address] 08779- 5576 May, Arthritis of both knees M19.90 [facility] [address] [place] [address] 59144 -6562 May, Herpes zoster without complication B02.9 and Vaginal penny B37.3 [place] [address] 05404- 5266 Mar, [place] [address] 96126- 7123 Mar, Arthritis of both knees M19.90 [place] [address], [place] [address] 2596 Mar, Arthritis of both knees M19.90 ; Elevated serum creatinine R79.89 ; Fibromyalgia M79.7 ; Idiopathic neuropathy G60.9 ; Vitamin D deficiency E55.9 ; Pre-diabetes R73.03 and Insomnia due to medical condition G47.01 [place] [id number] [place] [address] 11878- 9779 Mar, [place] [id number] [place] [address] 37179- 1099 Jan, [place] [id number] [place] [address] 86502- 6617 Jan, Pes planus of left foot M21.42 ; Plantar fasciitis of left foot M72.2 and Neuropathy G62.9 [place] [id number] [place] [address] 34689- 0496 Jan, Arthritis of both knees M19.90 ; Fibromyalgia M79.7 ; Idiopathic neuropathy G60.9 ; Vitamin D deficiency E55.9 ; Pre-diabetes R73.03 ; Insomnia due to medical condition G47.01 ; Bad odor of urine R82.90 and SI ( sacroiliac) pain M53.3 [place] [address] [address]- 0105 Jan, [place] [id number] [place] [address] 94801- 0314 Jan, Elevated serum creatinine R79.89 [place] [id number] [place] [address] 44933- 3834 Dec, [place] [id number] [place] [address] 92049- 8107 Dec, Arthritis of both knees M19.90 ; Fibromyalgia M79.7 ; Idiopathic neuropathy G60.9 ; Vitamin D deficiency E55.9 and Pre-diabetes R73.03 [place] [address] [address]- 0440 Dec, Arthritis of both knees M19.90 [facility] [id number] [place] [address] 34288- 9842 October, [facility] [place] [address] [address]- 5901 October, [facility] [place] [id number] [place] [address] 37262- 7611 October, Fibromyalgia M79.7 [place] [id number] [place] [address] 14863- 2399 October, Skin tag L91.8 ; Left foot pain M79.672 and Rash and nonspecific skin eruption R21 [place] [id number] [place] [address] 76561- 9884 Aug, [place] [id number] [place] [address] 73263- 3562 Aug, Arthritis of both knees M19.90 ; Fibromyalgia M79.7 ; Idiopathic neuropathy G60.9 ; Vitamin D deficiency E55.9 ; Morbid obesity due to excess calories E66.01 and History of prediabetes Z87.898 [facility] [address], [place] [address] Aug, Blood in ear canal, right H92.21 [facility] [place] [address] [address]- 6040 Jul, [place] [address] [place] [address] 35720- 2457 Jul, Arthritis of both knees M19.90 ; Fibromyalgia M79.7 ; Idiopathic neuropathy G60.9 and Vitamin D deficiency E55.9 [facility] [place] [address], [place] [address]- 9585 Jul, Fibromyalgia M79.7 [facility] [place] [id number] [place] [address] 26824- 8402 May, Fibromyalgia M79.7 ; Idiopathic neuropathy G60.9 ; Vitamin D deficiency E55.9 ; Memory change R41.3 ; Xerostomia K11.7 and Heartburn R12 [facility] [place] [id number] [place] [address] 87647- 3833 May, Fibromyalgia M79.7 ; Idiopathic neuropathy G60.9 ; Vitamin D deficiency E55.9 and Memory change R41.3 [place] [id number] [place] [address] 87042- 1235 May, [facility] [place] [id number] [place] [address] 05615- 7602 Mar, [place] [id number] [place] [address] 39234- 4370 Jan, [place] [id number] [place] [address] 24340- 5527 Jan, [facility] [place] [id number] [place] [address] 22504- 9510 Jan, Dermatitis L30.9 ; Pain in right shoulder M25.511 ; Fibromyalgia M79.7 and H/O right knee surgery Z98.89 [facility] [place] [id number] [place] [address] 24595- 1321 Dec, [place] [id number] [place] [address] 98801- 6886 Dec, Middle ear effusion, right H65.91 ; Fibromyalgia M79.7 and Heartburn R12 [facility] [id number] [place] [address] 36009 -6901 Dec, Otalgia of right ear H92.01 and Middle ear effusion, right H65.91 [facility] [place] [id number] [place] [address] 90366- 8904 Nov, Acute pain of right knee M25.561 [facility] [place] [address] 46235- 0701 Nov, [place] [address], [place] [address]- 9981 Nov, Acute pain of right knee M25.561 [facility] [place] [id number] [place] [address] 28694- 5121 October, Osteoarthritis of both knees, unspecified osteoarthritis type M17.0 [place] [id number] [place] [address] 15301- 7360 October, [place] [id number] [place] [address] 88434- 2112 Sep, [place] [id number] [place] [address] 00215- 2282 Sep, Fibromyalgia M79.7 ; Chronic fatigue R53.82 ; Sinusitis J32.9 ; Bronchiolitis J21.9 ; Weight gain R63.5 and Heartburn R12 [place] [id number] [place] [address] 21663- 4805 Sep, Mild hearing loss of right ear H91.91 and Tinnitus of right ear H93.11 [place] [id number] [place] [address] 98525- 6897 Aug, [place] [id number] [place] [address] 61446- 7241 Aug, [place] [id number] [place] [address] 23897- 3900 Aug, Fibromyalgia M79.7 and Depression F32.9 [place] [id number] [place] [address] 81248- 9313 Aug, [place] [id number] [place] [address] 05228- 3216 Jul, Fibromyalgia M79.7 ; 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 ; Vitamin D deficiency E55.9 ; Long-term use of high-risk medication Z79.899 ; Heartburn R12 ; Chronic fatigue, unspecified R53.82 and Tinnitus of right ear H93.11 [place] [id number] [place] [address] 42180- 4899 Mar, Fibromyalgia M79.7 ; 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 ; Vitamin D deficiency E55.9 ; Diarrhea R19.7 ; Long-term use of high- risk medication Z79.899 and Heartburn R12 [place] [address] 79285- 0547 Mar, Fibromyalgia 729.1 ; Unspecified hereditary and idiopathic peripheral neuropathy 356.9 ; Unspecified sleep disturbance 780.50 ; Left ankle pain 719.47 and Insomnia 780.52 [place] [address] 02899- 9010 Mar, Unspecified episodic mood disorder 296.90 and Anxiety state , unspecified 300.00 [place] [address] 26186- 4178 Mar, Chondromalacia of right knee 717.7 [place] [id number] [place] [address] 82765- 3244 Jan, [place] [address] 42009- 2076 Dec, Left foot pain 729.5 [place] [id number] [place] [address] 99002- 9237 Sep, [facility] [place] [id number] [place] [address] 83447- 9260 Sep, [facility] [place] [id number] [place] [address] 76429- 7095 Aug, [place] [address] 86348229- 5410 17 Aug, 2014 [facility] [place] [id number] [place] [address] 14589720- 1808 16 Aug, 2014 [place] [address] [place] [address]- 0626 16 Aug, 2014 [facility] [place] [facility] [address] [id number] [place] [address]- 1925 11 Aug, 2014 [facility] [place] [facility] [address] [id number] [place] [address]- 3987 Aug, [facility] [place] [facility] [address] [id number] [place] [address]- 9886 11 Aug, 2014 [facility] [place] [facility] [address] [id number] [place] [address]- 4849 11 Aug, 2014 [facility] [place] [facility] [address] [id number] [place] [address]- 9139 Aug, [facility] [place] [facility] [address] [id number] [place] [address]- 2925 Aug, [facility] [place] [facility] [address] [id number] [place] [address]- 5818 05 Aug, 2014 [facility] [place] [facility] [address] [id number] [place] [address]- 5126 Aug, [facility] [place] [facility] [address] [id number] [place] [address]- 3055 Aug, [facility] [place] [facility] [address] [facility] [id number] [place] [address]- 7144 Aug, [facility] [place] [facility] [address] [id number] [place] [address]- 3728 Aug, [facility] [place] [facility] [address] [id number] [place] [address]- 2218 Aug, [facility] [place] [facility] [address] [id number] [place] [address]- 0700 Jul, [facility] [place] [facility] [address] [id number] [place] [address]- 5586 Jul, [facility] [place] [facility] [address] [id number] [place] [address]- 8019 Jul, [facility] [place] [facility] [address] [id number] [place] [address]- 5679 Jul, [facility] [place] [facility] [address] [id number] [place] [address]- 7161 May, [facility] [place] [facility] [address] [id number] [place] 5861 May, [facility] [place] [facility] [address] [id number] [place] [address]- 7526 May, [facility] [place] [facility] [address] [id number] [place] [address]- 2675 Mar, [facility] [place] [facility] [address] [id number] [place] [address]- 0557 Mar, [facility] [place] [facility] [address] [id number] [place] [address]- 1100 Mar, [facility] [place] [facility] [address] [id number] [place] [address]- 3278 Mar, [facility] [place] [facility] [address] [id number] [place] [address]- 8643 Dec, [facility] [place] [facility] [address] [id number], [place] [address]- 2975 Dec, [facility] [place] [facility] [address] [id number], [place] [address]- 2177 Nov, [facility] [place] [facility] [address] [id number], [place] [address]- 2558 Nov, [facility] [place] [facility] [address] [id number] [place] [address]- 6816 Nov, [facility] [place] [facility] [address] [id number] [place] [address]- 9113 Nov, [facility] [place] [facility] [address] [id number], [place] [address]- 8846 Nov, [facility] [place] [facility] [address] [id number], [place] [address]- 5132 Nov, [facility] [address] [id number] [place] [address]- 7855 October, [facility] [place] [facility] [address] [id number] [place] [address]- 7019 October, [facility] [address] [id number] [place] [address]- 9962 October, [facility] [place] [facility] [address] [id number] [place] [address]- 7536 October, [facility] [place] [facility] [address] [id number] [place] [address]- 4086 October, [facility] [place] [facility] [address] [id number] [place] [address]- 1228 October, [facility] [address] [id number] [place] [address]- 4612 October, [facility] [place] [facility] [address] [id number] [place] [address]- 1448 October, [facility] [place] [facility] [address] [id number] [place] [address]- 3703 October, [facility] [place] [facility] [address] [id number] [place] [address]- 0169 October, [facility] [place] [facility] [address] [id number] [place] [address]- 3486 October, [facility] [place] [facility] [address] [id number] [place] [address]- 8792 October, [facility] [place] [facility] [address] [id number] [place] [address]- 1282 October, [facility] [place] [facility] [address] [id number] [place] [address]- 8572 Sep, [facility] [place] [facility] [address] [id number] [place] [address]- 3987 Sep, [facility] [place] [facility] [address] [id number] [place] [address]- 5122 Aug, [facility] [place] [facility] [address] [id number] [place] [address]- 9335 Aug, [facility] [place] [facility] [address] [id number] [place] [address]- 7679 Aug, [facility] [place] [facility] [address] [id number] [place] [address]- 5059 Aug, [facility] [place] [facility] [address] [id number] [place] [address]- 2304 Aug, [facility] [place] [facility] [address] [id number] [place] [address]- 1752 Aug, [facility] [place] [facility] [address] [id number] [place] [address]- 8818 Aug, [facility] [place] [facility] [address] [id number] [place] [address]- 8985 Aug, [facility] [place] [facility] [address] [id number] [place] [address]- 0502 Aug, [facility] [place] [facility] [address] [id number] [place] [address]- 9596 Aug, [facility] [place] [facility] [address] [id number] [place] [address]- 8411 Aug, [facility] [place] [facility] [address] [id number] [place] [address]- 5797 Aug, [facility] [place] [facility] [address] [id number] [place] [address]- 5618 Jul, [facility] [place] [facility] [address] [id number] [place] [address]- 1635 Jul, [facility] [place] [facility] [address] [id number] [place] [address]- 7011 Jul, [facility] [place] [facility] [address] [id number] [place] [address]- 2845 Jul, [facility] [address] [id number] [place] [address]- 1415 Mar, [facility] [address] [id number] [place] [address]- 2371 Mar, [facility] [address] [id number] [place] [address]- 4582 Jan, [facility] [address] [id number] [place] [address]- 7120 Sep, [facility] [address] [id number] [place] [address]- 6776 Aug, [facility] [address] [id number] [place] [address]- 3515 Aug, [facility] [address] [facility] [id number] [place] [address]- 6250 Aug, [facility] [address] [id number] [place] [address]- 1076 Aug, [facility] [address] [id number] [place] [address]- 1779 Aug, [facility] [address] [id number] [place] [address]- 1232 October, [facility] [address] [id number] [place] [address]- 0892 October, [facility] [address] [id number] [place] [address]- 9264 Sep, [facility] [address] [id number] [place] [address] Sep, [facility] [address] [id number] [place] [address] Sep, [facility] [address] [facility] [id number] [place] [address] Sep, [facility] [address] [id number] [place] [address] 18 Sep, 2011 [facility] [place] [facility] [address] [id number] [place] [address] 11 Sep, 2011 [facility] [place] [facility] [address] [id number] [place] [address] 10 Sep, 2011 [facility] [place] [facility] [address] [id number] [place] [address] 09 Sep, 2011 [facility] [place] [facility] [address] [id number] [place] [address] 07 Sep, 2011 [facility] [place] [facility] [address] [id number] [place] [address] Sep, [facility] [place] [facility] [address] [id number] [place] [address] Aug, [facility] [place] [facility] [address] [id number] [place] [address] 17 Aug, 2011 [facility] [place] [facility] [address] [id number] [place] [address] Aug, [facility] [place] [facility] [address] [id number] [place] [address] Aug, [facility] [place] [facility] [address] [id number] [place] [address] Jul, [facility] [place] [facility] [address] [id number] [place] [address] Jul, [facility] [place] [facility] [address] [id number] [place] [address] Jul, [facility] [place] [facility] [address] [id number] [place] [address] May, [facility] [place] [facility] [address] [id number] [place] [address] May, [facility] [place] [facility] [address] [id number] [place] [address] May, [facility] [place] [address] [facility] [id number] [place] [address] Jan, [facility] [place] [address] [facility] [id number] [place] [address] Dec, IMMUNIZATIONS No Known Immunizations SOCIAL HISTORY Never Assessed REASON FOR VISIT Controlled Med Refill PLAN OF CARE VITAL SIGNS MEDICATIONS Medication Instructions Dosage Frequency Start Date End Date Duration Status Hydrocodone-Acetaminophen 7.5-325 MG Orally daily prn 1/2-1 tablet Aug, Active RESULTS No Results PROCEDURES No Known [...]
--- OUTSIDE RECORDS SUMMARY | 2018-06-15 19:11 | XMS REPORT ---
Author Author RENETTA MANUEL [facility] Address [address] [place] [address] Care Team Providers Care Cremator Name Role Phone RENETTA MANUEL Unavailable PROBLEMS Type Condition ICD9-CM Code QAZ15-NX Code Onset Dates Condition Status SNOMED Code Problem Other chronic pain G89.29 Active 32429957 Problem Pre-diabetes R73.03 Active 847432673 Problem Arthritis of both knees M19.90 Active 569391666 Problem Paresthesia of skin R20.2 Active 26790505 Problem Morbid obesity E66.01 Active 027960243 Problem No diagnosis or condition on [place] I Z03.89 Active 7986807 Problem Insomnia due to medical condition G47.01 Active 257642093 Problem Idiopathic neuropathy G60.9 Active Problem Chronic seasonal allergic rhinitis, unspecified trigger J30.2 Active 064568712 Problem Abnormal x-ray of cervical spine R93.7 Active 523252980 Problem Vitamin D deficiency E55.9 Active 95807036 Problem Heartburn R12 Active 62082786 Problem Fibromyalgia M79.7 Active 52025722 Problem Long-term use of high-risk medication Z79.899 Active 289033067 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 43141167 Problem Depression F32.9 Active 49988477 ALLERGIES Substance Reaction Event Type Date Status Neurontin Unknown Drug Allergy Aug, Active Lyrica Nausea, diarrhea, headaches Drug Allergy Aug, Active Effexor Unknown Drug Allergy Aug, Active Demerol Unknown Drug Allergy Aug, Active Cymbalta 30 Mg Capsule, Delayed Release(e.c.) Unknown Non Drug Allergy Aug, Active ENCOUNTERS Encounter Location Date Diagnosis [facility] [address] [facility] [id number], [place] [address] Dec, [facility] [address] [facility] [id number], [place] [address] Dec, Encounter for weight loss counseling Z71.3 ; Fibromyalgia M79.7 and BMI 50.0-59.9, adult Z68.43 [place] [address] [address]- 3882 Nov, [place] [address] 20641- 4587 Nov, Morbid obesity E66.01 ; Paresthesia of upper and lower extremities of both sides R20.2 ; Hair loss L65.9 ; Fibromyalgia M79.7 and BMI 50.0-59.9, adult Z68.43 [place] [address] 53866- 6736 Nov, Vitamin D deficiency E55.9 [place] [address] 25643- 6649 Nov, Arthritis of both knees M19.90 and Vitamin D deficiency E55.9 [place] [address] 80645- 9381 Nov, Chronic seasonal allergic rhinitis, unspecified trigger J30.2 and Heartburn R12 [place] [address] 95032- 2140 Nov, [place] [address] 85463- 0259 Nov, Vitamin D deficiency E55.9 [place] [address] 61306- 8269 October, Morbid obesity E66.01 ; Hemorrhoids, unspecified hemorrhoid type K64.9 ; Pre-diabetes R73.03 and BMI 50.0-59.9, adult Z68.43 [place] [address] 31882- 9364 October, [place] [address] 50405- 5980 October, [place] [address] [place] [id number] [place] [address] 38680- 6393 October, Left arm numbness R20.0 ; Paresthesia of skin R20.2 ; Anesthesia of skin R20.0 and BMI 50.0-59.9, adult Z68.43 [place] [address] [place] [id number] [place] [address] 51854- 2936 Sep, BMI 50.0-59.9, adult Z68.43 ; Fibromyalgia M79.7 ; Idiopathic neuropathy G60.9 ; Vitamin D deficiency E55.9 ; Chronic seasonal allergic rhinitis, unspecified trigger J30.2 and Long-term use of high-risk medication Z79.899 [place] [address] 06624- 5271 Aug, Fibromyalgia M79.7 [place] [address] 56569- 7737 Aug, No diagnosis or condition on [place] I Z03.89 [place] [address] 79212- 4951 Aug, Chronic seasonal allergic rhinitis, unspecified trigger J30.2 ; Fibromyalgia M79.7 ; Heartburn R12 ; Pre-diabetes R73.03 ; Change of voice R49.9 and BMI 50.0-59.9, adult Z68.43 [place] [id number] [place] [address] 12775- 0822 Aug, Fibromyalgia M79.7 [place] [address] 62135- 5400 May, Chronic seasonal allergic rhinitis, unspecified trigger J30.2 ; Vaginal itching L29.8 and Vaginal yeast infection B37.3 [place] [id number] [place] [address] 13222- 7354 May, Arthritis of both knees M19.90 [facility] [address] [place] [id number] [place] [address] 07851 -1847 May, Herpes zoster without complication B02.9 and Vaginal penny B37.3 [place] [address] [place] [id number] [place] [address] 72123- 3466 Mar, [place] [address] 06897- 1537 Mar, Arthritis of both knees M19.90 [place] [address] 64224- 5243 Mar, Arthritis of both knees M19.90 ; Elevated serum creatinine R79.89 ; Fibromyalgia M79.7 ; Idiopathic neuropathy G60.9 ; Vitamin D deficiency E55.9 ; Pre-diabetes R73.03 and Insomnia due to medical condition G47.01 [place] [address] 23259- 5058 Mar, [place] [address] 22546- 5935 Jan, [place] [address] 12650- 0750 Jan, Pes planus of left foot M21.42 ; Plantar fasciitis of left foot M72.2 and Neuropathy G62.9 [place] [address] [place] [id number] [place] [address] 74912- 6313 Jan, Arthritis of both knees M19.90 ; Fibromyalgia M79.7 ; Idiopathic neuropathy G60.9 ; Vitamin D deficiency E55.9 ; Pre-diabetes R73.03 ; Insomnia due to medical condition G47.01 ; Bad odor of urine R82.90 and SI ( sacroiliac) pain M53.3 [place] [address] [place] [id number] [place] [address] 22023- 0794 Jan, [place] [address] 27427- 7932 Jan, Elevated serum creatinine R79.89 [place] [address] 25357- 9557 Dec, [facility] [address] [place] [id number] [place] [address] 46215- 5274 Dec, Arthritis of both knees M19.90 ; Fibromyalgia M79.7 ; Idiopathic neuropathy G60.9 ; Vitamin D deficiency E55.9 and Pre-diabetes R73.03 [facility] [address] [place] [id number] [place] [address] 10934- 1196 Dec, Arthritis of both knees M19.90 [place] [address] 74761- 7428 October, [place] [address] 66167- 2442 October, [place] [address] [place] [id number] [place] [address] 15213- 0348 October, Fibromyalgia M79.7 [place] [address] 80944- 8519 October, Skin tag L91.8 ; Left foot pain M79.672 and Rash and nonspecific skin eruption R21 [place] [address] [place] [id number] [place] [address] 41201- 2699 Aug, [place] [address] [place] [id number] [place] [address] 20876- 1995 Aug, Arthritis of both knees M19.90 ; Fibromyalgia M79.7 ; Idiopathic neuropathy G60.9 ; Vitamin D deficiency E55.9 ; Morbid obesity due to excess calories E66.01 and History of prediabetes Z87.898 [facility] [address] [place] [id number] [place] [address] 56188 -6263 Aug, Blood in ear canal, right H92.21 [facility] [address] [place] [id number] [place] [address] 66956- 6619 Jul, [facility] [address] [place] [id number] [place] [address] 08982- 6991 Jul, Arthritis of both knees M19.90 ; Fibromyalgia M79.7 ; Idiopathic neuropathy G60.9 and Vitamin D deficiency E55.9 [facility] [address] [place] [id number] [place] [address] 06379- 4587 Jul, Fibromyalgia M79.7 [facility] [address] [place] [id number] [place] [address] 55099- 1558 May, Fibromyalgia M79.7 ; Idiopathic neuropathy G60.9 ; Vitamin D deficiency E55.9 ; Memory change R41.3 ; Xerostomia K11.7 and Heartburn R12 [facility] [address] [place] [id number] [place] [address] 38087- 3028 May, Fibromyalgia M79.7 ; Idiopathic neuropathy G60.9 ; Vitamin D deficiency E55.9 and Memory change R41.3 [place] [address] [place] [id number] [place] [address] 09730- 9315 May, [facility] [address] 55478- 1116 Mar, [facility] [address] [place] [id number] [place] [address] 92289- 2397 Jan, [facility] [address] 99593- 2631 Jan, [facility] [address] [place] [id number] [place] [address] 10066- 3857 Jan, Dermatitis L30.9 ; Pain in right shoulder M25.511 ; Fibromyalgia M79.7 and H/O right knee surgery Z98.89 [facility] [address] [place] [id number] [place] [address] 27018- 9574 Dec, [facility] [address] 34541- 6590 Dec, Middle ear effusion, right H65.91 ; Fibromyalgia M79.7 and Heartburn R12 [facility] [address] [place] [id number] [place] [address] 71950 -2017 Dec, Otalgia of right ear H92.01 and Middle ear effusion, right H65.91 [facility] [address] [place] [id number] [place] [address] 77779- 4957 Nov, Acute pain of right knee M25.561 [facility] [address] [place] [id number] [place] [address] 54515- 3110 Nov, [place] [address] 39185- 7681 Nov, Acute pain of right knee M25.561 [facility] [address] [place] [id number] [place] [address] 90286- 6628 October, Osteoarthritis of both knees, unspecified osteoarthritis type M17.0 [place] [address] [place] [id number] [place] [address] 27483- 9934 October, [place] [address] [place] [id number] [place] [address] 62365- 9665 Sep, [place] [address] 58795- 6379 Sep, Fibromyalgia M79.7 ; Chronic fatigue R53.82 ; Sinusitis J32.9 ; Bronchiolitis J21.9 ; Weight gain R63.5 and Heartburn R12 [place] [address] [place] [id number] [place] [address] 84463- 9907 Sep, Mild hearing loss of right ear H91.91 and Tinnitus of right ear H93.11 [place] [address] [place] [id number] [place] [address] 11617- 1928 Aug, [place] [address] [place] [id number] [place] [address] 24106- 0191 Aug, [place] [address] 74490- 5795 Aug, Fibromyalgia M79.7 and Depression F32.9 [place] [address] [place] [id number] [place] [address] 75978- 1026 Aug, [place] [address] [place] [id number] [place] [address] 47321- 9992 Jul, Fibromyalgia M79.7 ; 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 ; Vitamin D deficiency E55.9 ; Long-term use of high-risk medication Z79.899 ; Heartburn R12 ; Chronic fatigue, unspecified R53.82 and Tinnitus of right ear H93.11 [place] [address] 89691- 4339 Mar, Fibromyalgia M79.7 ; 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 ; Vitamin D deficiency E55.9 ; Diarrhea R19.7 ; Long-term use of high- risk medication Z79.899 and Heartburn R12 [place] [address] [place] [id number] [place] [address] 50239- 2619 Mar, Fibromyalgia 729.1 ; Unspecified hereditary and idiopathic peripheral neuropathy 356.9 ; Unspecified sleep disturbance 780.50 ; Left ankle pain 719.47 and Insomnia 780.52 [place] [address] [place] [id number] [place] [address] 65694- 9179 Mar, Unspecified episodic mood disorder 296.90 and Anxiety state , unspecified 300.00 [place] [address] [place] [id number] [place] [address] 50363- 9257 Mar, Chondromalacia of right knee 717.7 [place] [address] [place] [id number] [place] [address] 93958- 4885 Jan, [place] [address] 40556- 0264 Dec, Left foot pain 729.5 [place] [address] 07889- 5732 Sep, [place] [address] 91047- 3102 Sep, [place] [address] [place] [id number] [place] [address] 57695- 4870 Aug, [facility] [place] [facility] [address] [id number] [place] [address]- 9080 17 Aug, 2014 [facility] [place] [facility] [address] [id number] [place] [address]- 8090 16 Aug, 2014 [facility] [place] [facility] [address] [id number] [place] [address]- 7929 16 Aug, 2014 [facility] [place] [facility] [address] [id number] [place] [address]- 7689 11 Aug, 2014 [facility] [place] [facility] [address] [id number] [place] [address]- 7419 11 Aug, 2014 [facility] [place] [facility] [address] [id number] [place] [address]- 1667 11 Aug, 2014 [facility] [place] [facility] [address] [id number] [place] [address]- 1827 11 Aug, 2014 [facility] [place] [facility] [address] [id number] [place] [address]- 6254 10 Aug, 2014 [facility] [place] [facility] [address] [id number] [place] [address]- 7401 10 Aug, 2014 [facility] [place] [facility] [address] [id number] [place] [address]- 9418 05 Aug, 2014 [facility] [place] [facility] [address] [id number] [place] [address]- 5243 05 Aug, 2014 [facility] [place] [facility] [address] [id number] [place] [address]- 6212 Aug, 2014 [facility] [place] [facility] [address] [id number] [place] [address]- 6798 Aug, 2014 [facility] [place] [facility] [address] [id number] [place] [address]- 0342 Aug, 2014 [facility] [place] [facility] [address] [id number] [place] 3983 Aug, 2014 [facility] [place] [facility] [address] [facility] [id number], [place] [address]- 6829 Jul, [facility] [place] [facility] [address] [id number] [place] [address]- 2811 Jul, [facility] [place] [facility] [address] [id number] [place] [address]- 5621 Jul, [facility] [place] [facility] [address] [id number] [place] [address]- 6438 Jul, [facility] [place] [facility] [address] [id number] [place] [address]- 3214 May, [facility] [place] [facility] [address] [id number] [place] [address]- 5871 May, [facility] [place] [facility] [address] [id number] [place] [address]- 7655 May, [facility] [place] [facility] [address] [id number] [place] [address]- 5685 Mar, [facility] [place] [facility] [address] [id number] [place] [address]- 9782 Mar, [facility] [place] [facility] [address] [id number] [place] [address]- 4491 Mar, [facility] [place] [facility] [address] [id number] [place] [address]- 8026 Mar, [facility] [place] [facility] [address] [id number], [place] [address]- 1487 Dec, [facility] [place] [facility] [address] [id number] [place] [address]- 5233 Dec, [facility] [place] [facility] [address] [id number] [place] [address]- 3829 Nov, [facility] [place] [facility] [address] [id number] [place] [address]- 6334 Nov, [facility] [place] [facility] [address] [id number] [place] [address]- 6734 Nov, [facility] [place] [facility] [address] [id number] [place] [address]- 2013 Nov, [facility] [address] [id number] [place] [address]- 2374 Nov, [facility] [place] [facility] [address] [id number] [place] [address]- 2646 Nov, [facility] [place] [facility] [address] [id number] [place] [address]- 4934 October, [facility] [place] [facility] [address] [id number] [place] [address]- 8603 October, [facility] [place] [facility] [address] [id number] [place] [address]- 1546 October, [facility] [place] [facility] [address] [id number] [place] [address]- 1052 October, [facility] [place] [facility] [address] [id number] [place] [address]- 0512 October, [facility] [address] [id number] [place] [address]- 6333 October, [facility] [place] [facility] [address] [id number] [place] [address]- 5522 October, [facility] [place] [facility] [address] [id number] [place] 9357 October, [facility] [place] [facility] [address] [id number] [place] [address]- 4059 October, [facility] [place] [facility] [address] [id number] [place] [address]- 7278 October, [facility] [place] [facility] [address] [id number] [place] [address]- 7978 October, [facility] [place] [facility] [address] [id number] [place] [address]- 2306 October, [facility] [place] [facility] [address] [id number] [place] [address]- 2420 October, [facility] [place] [facility] [address] [id number] [place] [address]- 6991 Sep, [facility] [place] [facility] [address] [id number] [place] 7485 Sep, [facility] [place] [facility] [address] [id number] [place] [address]- 0260 Aug, [facility] [place] [facility] [address] [id number] [place] [address]- 9639 Aug, [facility] [place] [facility] [address] [id number] [place] [address]- 0844 Aug, [facility] [place] [facility] [address] [id number] [place] [address]- 1928 Aug, [facility] [place] [facility] [address] [id number] [place] [address]- 0530 Aug, [facility] [place] [facility] [address] [id number] [place] [address]- 7161 Aug, [facility] [place] [facility] [address] [id number] [place] [address]- 2794 Aug, [facility] [place] [facility] [address] [id number] [place] [address]- 1886 Aug, [facility] [place] [facility] [address] [id number] [place] [address]- 2330 Aug, [facility] [place] [facility] [address] [id number], [place] [address]- 0617 Aug, [facility] [place] [facility] [address] [id number] [place] [address]- 6445 Aug, [facility] [place] [facility] [address] [id number] [place] [address]- 2010 Aug, [facility] [place] [facility] [address] [id number] [place] [address]- 5902 Jul, [facility] [place] [facility] [address] [id number] [place] [address]- 2910 Jul, [facility] [address] [id number] [place] [address]- 5104 Jul, [facility] [address] [id number] [place] [address]- 0735 Jul, [facility] [address] [id number] [place] [address]- 9141 Mar, [facility] [address] [id number] [place] [address]- 1451 Mar, [facility] [address] [id number] [place] [address]- 7102 Jan, [facility] [address] [id number] [place] [address]- 0124 Sep, [facility] [address] [id number] [place] [address]- 6124 Aug, [facility] [address] [id number] [place] [address]- 3371 Aug, [facility] [id number] [place] [address]- 1360 Aug, [facility] [address] [place] [id number] [place] [address]- 1762 Aug, [facility] [address] [facility] [id number] [place] [address]- 5498 Aug, [facility] [address] [id number] [place] [address]- 1723 October, [facility] [address] [id number] [place] [address]- 6756 October, [facility] [address] [facility] [id number] [place] [address]- 0248 Sep, [facility] [address] [id number] [place] [address]- 2470 Sep, [facility] [place] [facility] [address] [id number] [place] [address]- 5110 Sep, [facility] [place] [facility] [address] [id number] [place] [address]- 9249 Sep, [facility] [place] [facility] [address] [id number] [place] [address]- 4992 18 Sep, 2011 [facility] [place] [facility] [address] [id number] [place] [address]- 6557 Sep, [facility] [place] [facility] [address] [id number] [place] [address]- 0211 Sep, [facility] [place] [facility] [address] [id number] [place] [address]- 9036 Sep, [facility] [place] [facility] [address] [id number] [place] [address]- 4025 Sep, [facility] [place] [facility] [address] [id number] [place] [address]- 0671 Sep, [facility] [place] [facility] [address] [id number] [place] [address]- 3021 Aug, [facility] [place] [facility] [address] [id number] [place] [address]- 3208 17 Aug, 2011 [facility] [place] [facility] [address] [id number] [place] [address] 13 Aug, 2011 [facility] [place] [facility] [address] [id number], [place] [address] Aug, [facility] [place] [facility] [address] [id number] [place] [address] Jul, [facility] [place] [facility] [address] [id number] [place] [address] Jul, [facility] [place] [facility] [address] [id number] [place] [address] Jul, [facility] [place] [facility] [address] [facility] [id number] [place] [address] May, [facility] [address] [facility] [id number], [place] [address] May, [facility] [address] [facility] [id number], [place] [address] May, [facility] [address] [facility] [id number], [place] [address] Jan, [facility] [address] [facility] [id number], [place] [address] Dec, IMMUNIZATIONS No Known Immunizations SOCIAL HISTORY Never Assessed REASON FOR VISIT Bariatric Eval PLAN OF CARE Activity Details Follow Up prn Reason:BH F/U VITAL SIGNS MEDICATIONS Medication Instructions Dosage Frequency Start Date End Date Duration Status Fluticasone Propionate 50 MCG/ACT Nasally Once a day 1 spray in each nostril 24h Active Omeprazole 40 MG Orally Once a day 1 capsule 24h Active Hydrocodone-Acetaminophen 7.5-325 MG Orally daily prn 1/2-1 tablet May, Active Amitriptyline HCl 10 mg Orally Once a day at hs 1 tablet Aug, 28 days Active Cetirizine HCl 10 mg Orally Once a day 1 tablet 24h 30 Active Vitamin D3 5000 UNIT Orally Once a day 1 tablet 24h 30 day(s) Not- Taking Pilocarpine HCl 5 MG Orally Three times a day 1 tablet 8h Active Wheelchair - xtra large Jul, Active Tizanidine HCl 4 MG Orally 2 times a day 1 tablet as needed 12h Aug, Sep, 28 days Active RESULTS No Results PROCEDURES Procedure Date Ordered Result Body Site Psych diagnostic evaluation, established patient September 18, 2017 INSTRUCTIONS MEDICATIONS ADMINISTERED No Known Medications [...]
--- OUTSIDE RECORDS SUMMARY | 2018-06-15 19:12 | XMS REPORT ---
Author Author MILIND CHU Organization 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 Name Role Phone MILIND CHU Unavailable PROBLEMS Type Condition ICD9-CM Code [id number] Code Onset Dates Condition Status SNOMED Code Problem Chronic fatigue R53.82 Active 02233476 Problem Idiopathic neuropathy G60.9 Active 00264562 Problem Systemic involvement of connective tissue, unspecified M35.9 Active 516235862 Problem No diagnosis or condition on Line [place] I Z03.89 Active 3764215 Problem Chronic seasonal allergic rhinitis, unspecified trigger J30.2 Active 962374137 Problem Arthritis of both knees M19.90 Active 682657591 Problem Other chronic pain G89.29 Active 52732255 Problem Insomnia due to medical condition G47.01 Active 354025952 Problem Pre-diabetes R73.03 Active 482206932 Problem History of anemia Z86.2 Active 965742452 Problem Vitamin D deficiency E55.9 Active 24015562 Problem Long-term use of high-risk medication Z79.899 Active 120419798 Problem Fibromyalgia M79.7 Active 47446722 Problem Heartburn R12 Active 65134279 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 [address] [facility] [id number] [address] Sep, [facility] [address] [facility] [id number] [address] Aug, Fibromyalgia M79.7 [place] [id number] [place] [address] 38668- 9670 Aug, No diagnosis or condition on Line [place] I Z03.89 [place] [address] [address]- [address] Aug, Chronic seasonal allergic rhinitis, unspecified trigger J30.2 ; Fibromyalgia M79.7 ; Heartburn R12 ; Pre-diabetes R73.03 ; Change of voice R49.9 and BMI 50.0-59.9, adult Z68.43 [place] [address] [address]- [address]85 Aug, Fibromyalgia M79.7 [place] [address] 48376- 9445 May, Chronic seasonal allergic rhinitis, unspecified trigger J30.2 ; Vaginal itching L29.8 and Vaginal yeast infection B37.3 [place] [id number] [place] [address] 27048- 8903 May, Arthritis of both knees M19.90 [facility] [address] [address] May, Herpes zoster without complication B02.9 and Vaginal penny B37.3 [place] [id number] [place] [address] 96155- 9271 Mar, [facility] [address] [address]- 1382 Mar, Arthritis of both knees M19.90 [place] [id number] [place] [address] 59910- 3562 Mar, Arthritis of both knees M19.90 ; Elevated serum creatinine R79.89 ; Fibromyalgia M79.7 ; Idiopathic neuropathy G60.9 ; Vitamin D deficiency E55.9 ; Pre-diabetes R73.03 and Insomnia due to medical condition G47.01 [place] [address] 02871- 8412 Mar, [place] [id number] [place] [address] 41615- 2485 Jan, [place] [id number] [place] [address] 36799- 2592 Jan, Pes planus of left foot M21.42 ; Plantar fasciitis of left foot M72.2 and Neuropathy G62.9 [place] [id number] [place] [address] 40508- 6850 Jan, Arthritis of both knees M19.90 ; Fibromyalgia M79.7 ; Idiopathic neuropathy G60.9 ; Vitamin D deficiency E55.9 ; Pre-diabetes R73.03 ; Insomnia due to medical condition G47.01 ; Bad odor of urine R82.90 and SI ( sacroiliac) pain M53.3 [place] [id number] [place] [address] 03180- 5350 Jan, [place] [id number] [place] [address] 44051- 3846 Jan, Elevated serum creatinine R79.89 [place] [id number] [place] [address] 27549- 5882 Dec, [facility] [id number] [place] [address] 22689- 8013 Dec, Arthritis of both knees M19.90 ; Fibromyalgia M79.7 ; Idiopathic neuropathy G60.9 ; Vitamin D deficiency E55.9 and Pre-diabetes R73.03 [place] [id number] [place] [address] 23595- 9045 Dec, Arthritis of both knees M19.90 [place] [id number] [place] [address] 89216- 3274 October, [facility] [id number] [place] [address] 77914- 5810 October, [place] [id number] [place] [address] 50091- 8175 October, Fibromyalgia M79.7 [facility] [id number] [place] [address] 85724- 8380 October, Skin tag L91.8 ; Left foot pain M79.672 and Rash and nonspecific skin eruption R21 [facility] [id number] [place] [address] 99906- 1831 Aug, [place] [id number] [place] [address] 21278- 6017 Aug, Arthritis of both knees M19.90 ; Fibromyalgia M79.7 ; Idiopathic neuropathy G60.9 ; Vitamin D deficiency E55.9 ; Morbid obesity due to excess calories E66.01 and History of prediabetes Z87.898 [facility] [id number] [place] [address] 68299 -2979 Aug, Blood in ear canal, right H92.21 [place] [id number] [place] [address] 20317- 0636 Jul, [place] [id number] [place] [address] 56542- 1937 Jul, Arthritis of both knees M19.90 ; Fibromyalgia M79.7 ; Idiopathic neuropathy G60.9 and Vitamin D deficiency E55.9 [place] [id number] [place] [address] 23268- 3704 Jul, Fibromyalgia M79.7 [facility] [id number] [place] [address] 96615- 9193 May, Fibromyalgia M79.7 ; Idiopathic neuropathy G60.9 ; Vitamin D deficiency E55.9 ; Memory change R41.3 ; Xerostomia K11.7 and Heartburn R12 [place] [id number] [place] [address] 88141- 2094 May, Fibromyalgia M79.7 ; Idiopathic neuropathy G60.9 ; Vitamin D deficiency E55.9 and Memory change R41.3 [place] [id number] [place] [address] 35399- 5401 May, [facility] [id number] [place] [address] 80657- 8504 Mar, [facility] [id number] [place] [address] 32922- 7547 Jan, [facility] [id number] [place] [address] 93503- 3639 Jan, [facility] [id number] [place] [address] 11541- 8439 Jan, Dermatitis L30.9 ; Pain in right shoulder M25.511 ; Fibromyalgia M79.7 and H/O right knee surgery Z98.89 [facility] [id number] [place] [address] 48260- 9914 Dec, [facility] [id number] [place] [address] 80500- 4813 Dec, Middle ear effusion, right H65.91 ; Fibromyalgia M79.7 and Heartburn R12 [facility] [id number] [place] [address] 47217 -5183 Dec, Otalgia of right ear H92.01 and Middle ear effusion, right H65.91 [facility] [id number] [place] [address] 18418- 5291 Nov, Acute pain of right knee M25.561 [facility] [id number] [place] [address] 78262- 8380 Nov, [facility] [id number] [place] [address] 42465- 6691 Nov, Acute pain of right knee M25.561 [facility] [id number] [place] [address] 28041- 1468 October, Osteoarthritis of both knees, unspecified osteoarthritis type M17.0 [facility] [id number] [place] [address] 02093- 2079 October, [place] [id number] [place] [address] 60182- 8137 Sep, [place] [id number] [place] [address] 01784- 1801 Sep, Fibromyalgia M79.7 ; Chronic fatigue R53.82 ; Sinusitis J32.9 ; Bronchiolitis J21.9 ; Weight gain R63.5 and Heartburn R12 [place] [id number] [place] [address] 20549- 2859 Sep, Mild hearing loss of right ear H91.91 and Tinnitus of right ear H93.11 [place] [id number] [place] [address] 96234- 9321 Aug, [place] [address] 93978- 8168 Aug, [place] [id number] [place] [address] 94290- 5458 Aug, Fibromyalgia M79.7 and Depression F32.9 [place] [id number] [place] [address] 46271- 9970 Aug, [place] [id number] [place] [address] 18830- 4016 Jul, Fibromyalgia M79.7 ; 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 ; Vitamin D deficiency E55.9 ; Long-term use of high-risk medication Z79.899 ; Heartburn R12 ; Chronic fatigue, unspecified R53.82 and Tinnitus of right ear H93.11 [place] [address] [place] [address] 34809- 3056 Mar, Fibromyalgia M79.7 ; 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 [address] [place] [address] 685288- 3178 Mar, Unspecified episodic mood disorder 296.90 and Anxiety state , unspecified 300.00 [facility] [id number] [place] [address] 78048- 1737 Mar, Chondromalacia of right knee 717.7 [facility] [id number] [place] [address] 958841- 9905 Jan, [facility] [id number] [place] [address] 27815- 8631 Dec, Left foot pain 729.5 [facility] [id number] [place] [address] 75215- 8948 Sep, [facility] [id number] [place] [address] 64632- 6250 Sep, [facility] [id number] [place] [address] 46116- 2594 17 Aug, 2014 [facility] [id number] [place] [address] 85134- 8155 17 Aug, 2014 [facility] [id number] [place] [address] 57866- 1382 16 Aug, 2014 [facility] [id number] [place] [address] 42003- 5619 16 Aug, 2014 [facility] [id number] [place] [address] 395188- 6685 11 Aug, 2014 [facility] [id number] [place] [address] 960312- 1520 Aug, [facility] [id number] [place] [address] 960627- 0352 Aug, [facility] [place] [facility] [address] [id number] [place] [address]- 5530 Aug, [facility] [place] [facility] [address] [id number] [place] [address]- 1938 Aug, [facility] [place] [facility] [address] [id number] [place] [address]- 8709 Aug, [facility] [place] [facility] [address] [id number] [place] [address]- 8499 Aug, [facility] [place] [facility] [address] [id number] [place] [address]- 6577 Aug, [facility] [place] [facility] [address] [id number] [place] [address]- 4081 Aug, [facility] [place] [facility] [address] [id number] [place] [address]- 1425 Aug, [facility] [place] [facility] [address] [id number] [place] [address]- 8700 Aug, [facility] [place] [facility] [address] [id number] [place] [address]- 2461 Aug, [facility] [place] [facility] [address] [id number] [place] [address]- 4113 Jul, [facility] [place] [facility] [address] [id number] [place] [address]- 0089 Jul, [facility] [place] [facility] [address] [id number] [place] [address]- 8825 Jul, [facility] [place] [facility] [address] [id number] [place] [address]- 7387 Jul, [facility] [place] [facility] [address] [id number] [place] [address]- 1972 May, [facility] [place] [facility] [address] [id number] [place] [address]- 0909 May, [facility] [place] [facility] [address] [id number] [place] [address]- 9827 May, [facility] [place] [facility] [address] [id number] [place] [address]- 8553 Mar, [facility] [place] [facility] [address] [id number] [place] [address]- 5908 Mar, [facility] [place] [facility] [address] [id number] [place] [address]- 8090 Mar, [facility] [place] [facility] [address] [id number] [place] [address]- 5055 Mar, [facility] [place] [facility] [address] [id number] [place] [address]- 5570 Dec, [facility] [place] [facility] [address] [id number] [place] [address]- 8931 Dec, [facility] [place] [facility] [address] [id number] [place] [address]- 2313 Nov, [facility] [place] [facility] [address] [id number] [place] [address]- 9639 Nov, [facility] [place] [facility] [address] [id number] [place] [address]- 3240 Nov, [facility] [place] [facility] [address] [id number] [place] [address]- 6687 Nov, [facility] [place] [facility] [address] [id number] [place] [address]- 5529 Nov, [facility] [place] [facility] [address] [id number] [place] [address]- 6886 Nov, [facility] [place] [facility] [address] [id number] [place] [address]- 8731 October, [facility] [place] [facility] [address] [id number] [place] [address]- 1332 October, [facility] [place] [facility] [address] [id number] [place] [address]- 4090 October, [facility] [place] [facility] [address] [id number] [place] [address]- 9366 October, [facility] [address] [id number] [place] [address]- 1805 October, [facility] [address] [id number] [place] [address]- 2466 October, [facility] [address] [id number] [place] [address]- 8886 October, [facility] [address] [id number] [place] [address]- 6196 October, [facility] [address] [id number] [place] [address]- 5635 October, [facility] [address] [id number] [place] [address]- 9336 October, [facility] [address] [id number] [place] [address]- 4009 October, [facility] [address] [id number] [place] [address]- 8769 October, [facility] [address] [id number] [place] [address]- 5318 October, [facility] [address] [id number] [place] [address]- 0061 Sep, [facility] [place] [facility] [address] [id number] [place] [address]- 5382 Sep, [facility] [address] [id number] [place] [address]- 7487 Aug, [facility] [place] [facility] [address] [id number] [place] [address]- 9732 Aug, [facility] [address] [id number] [place] [address]- 9196 Aug, [facility] [place] [facility] [address] [id number] [place] [address]- 4356 Aug, [facility] [place] [facility] [address] [id number] [place] [address]- 5319 Aug, [facility] [place] [facility] [address] [id number] [place] [address]- 8530 Aug, [facility] [place] [facility] [address] [id number] [place] [address]- 4397 Aug, [facility] [place] [facility] [address] [id number] [place] [address]- 9120 Aug, [facility] [place] [facility] [address] [id number] [place] [address]- 6251 Aug, [facility] [place] [facility] [address] [id number] [place] [address]- 8177 Aug, [facility] [place] [facility] [address] [id number] [place] [address]- 9585 Aug, [facility] [place] [facility] [address] [id number] [place] [address]- 9250 Aug, [facility] [place] [facility] [address] [id number] [place] [address]- 3463 Jul, [facility] [place] [facility] [address] [id number] [place] [address]- 6967 Jul, [facility] [place] [facility] [address] [id number] [place] [address]- 7565 Jul, [facility] [place] [facility] [address] [id number] [place] [address]- 0077 Jul, [facility] [place] [facility] [address] [id number] [place] [address]- 5408 Mar, [facility] [place] [facility] [address] [id number] [place] [address]- 4561 Mar, [facility] [place] [facility] [address] [id number] [place] [address]- 0067 Jan, [facility] [place] [facility] [address] [id number] [place] [address]- 4578 03 Sep, 2012 [facility] [address] [id number] [place] [address]- 8746 14 Aug, 2012 [facility] [place] [facility] [address] [id number] [place] [address]- 2546 12 Aug, 2012 [facility] [address] [id number] [place] [address]- 0356 08 Aug, 2012 [facility] [address] [id number] [place] [address]- 6769 07 Aug, 2012 [facility] [address] [id number] [place] [address]- 5208 05 Aug, 2012 [facility] [address] [id number] [place] [address]- 2102 October, [facility] [address] [id number] [place] [address]- 6020 October, [facility] [address] [id number] [place] [address]- 3381 Sep, [facility] [address] [id number] [place] [address]- 5563 Sep, [facility] [address] [id number] [place] [address]- 3162 Sep, [facility] [address] [id number] [place] [address] 2540 Sep, [facility] [address] [id number] [place] [address] 2548 18 Sep, 2011 [facility] [place] [facility] [address] [id number] [place] [address] 2544 Sep, [facility] [place] [facility] [address] [id number] [place] [address]- 2546 10 Sep, 2011 [facility] [place] [facility] [address] [id number] [place] [address]- 2542 Sep, [facility] [address] [address]- 2786 Sep, [facility] [address] [facility] [id number] [address]- 2546 Sep, [facility] [address] [id number] [address]- 2546 Aug, [facility] [address] [id number] [address] Aug, [facility] [address] [facility] [id number] [place] [address] Aug, [facility] [id number] [address] Aug, [facility] [id number] [address] Jul, [facility] [id number] [address] Jul, [facility] [id number] [address] Jul, [facility] [id number] [address] May, [facility] [id number] [address] May, [facility] [id number] [address] May, [facility] [id number] [address] Jan, [facility] [id number] [address] Dec, IMMUNIZATIONS No Known Immunizations SOCIAL HISTORY Never Assessed REASON FOR VISIT Pain management (chronic)-please see last te, has a bump on the back of her head she would like looked at-Sean PLAN OF CARE Activity Details Follow Up 4 Weeks Reason:sleep VITAL SIGNS Height 68 in 2017-01-23 Weight 332.5 lbs 2017-01-23 Temperature 97.8 degrees Fahrenheit 2017-01-23 Heart Rate 84 bpm 2017-01-23 Respiratory Rate 18 2017-01-23 BMI 50.55 kg/m2 2017-01-23 Blood pressure systolic 108 mmHg 2017-01-23 Blood pressure diastolic 78 mmHg 2017-01-23 MEDICATIONS Medication Instructions Dosage Frequency Start Date End Date Duration Status Omeprazole 40 MG Orally Once a day 1 capsule 24h Active Fluticasone Propionate 50 MCG/ACT Nasally Once a day 1 spray in each nostril 24h Sep, Active Trazodone HCl 100 mg Orally Once a day 1/2-1 tablet at bedtime 24h Dec 28 days Active Cyclobenzaprine HCl 10 MG TAKE ONE TABLET BY MOUTH THREE TIMES DAILY 30 Active Vitamin D3 5000 UNIT Orally Once a day 1 tablet 24h Dec, Mar, 30 day(s) Active Cetirizine HCl 10 MG Orally Once a day 1 tablet 24h Active Cyclobenzaprine HCl 10 mg Orally Three times a day 1 tablet 8h 30 Active Carbamazepine 200 MG Orally Twice a day 1 tablet 12h Active Wheelchair - xtra large Jul, Active Hydrocodone-Acetaminophen 7.5-325 MG Orally 2 times a day prn 1/2-1 tablet Dec, Jan, Active RESULTS Name Result Date Reference Range VITAMIN B12 2017-01-23 Vitamin B12 [phone] MAGNESIUM, SERUM 2017-01-23 Magnesium, Serum 2.2 1.6-2.3 VITAMIN D, 25-H 2017-01-23 Vitamin D, 25-Hydroxy 27.8 30.0-100.0 CMP 2017-01-23 Glucose, Serum 118 65-99 BUN 13 6-20 Creatinine, Serum 1.05 0.57-1.00 eGFR If NonAfricn Am 69 >59 eGFR If Africn Am 80 >59 BUN/Creatinine Ratio 12 9-23 Sodium, Serum 141 134-144 Potassium, Serum 4.7 3.5-5.2 Chloride, Serum 102 96-106 Carbon Dioxide, Total 19 18-29 Calcium, Serum 9.4 8.7-10.2 Protein, Total, Serum 7.2 6.0-8.5 Albumin, Serum 4.2 3.5-5.5 Globulin, Total 3.0 1.5-4.5 A/G Ratio 1.4 1.2-2.2 Bilirubin, Total 0.3 0.0-1.2 Alkaline Phosphatase, S 76 39-117 AST (SGOT) 24 0-40 ALT (SGPT) 23 0-32 A1C (IN HOUSE) 2017-01-23 A1C IN HOUSE 5.9 4.3 - 5.6 % Previous A1c 5.9 Lot [id number] Exp date 09/2018 PROCEDURES Procedure Date Ordered Result Body Site GLYCATED HEMOGLOBIN TEST January 23, 2017 LAB NOT BILLED BY [facility] January 23, 2017 VENIPUNCT, ROUTINE* January 23, 2017 INSTRUCTIONS MEDICATIONS ADMINISTERED No Known Medications [...] moderate Medical History Quit Smoking August 2015 Surgical History tubal ligation 2004 Surgical History right knee surgery 01/18/2016 Surgical History tooth removal 06/16/17 Surgical History Biopsy of Uterus 06/19/17 Hospitalization History Surgeries only Hospitalization History ER chest pain 05/2017
--- OUTSIDE RECORDS SUMMARY | 2018-06-15 19:12 | XMS REPORT ---
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 49890590 Problem Vitamin D deficiency E55.9 Active 46313643 Problem Heartburn R12 Active 64439122 Problem Idiopathic neuropathy G60.9 Active 914957486 Problem Chronic seasonal allergic rhinitis, unspecified trigger J30.2 Active 331703655 Problem Pre-diabetes R73.03 Active 337036557 Problem Other chronic pain G89.29 Active 31689778 Problem No diagnosis or condition on Perris I Z03.89 Active 3803723 Problem Insomnia due to medical condition G47.01 Active 023676423 ALLERGIES Substance Reaction Event Type Date Status Neurontin Unknown Drug Allergy Jan, Active Lyrica Nausea, diarrhea, headaches Drug Allergy Jan, Active Effexor Unknown Drug Allergy Jan, Active Cymbalta 30 Mg Capsule, Delayed Release(e.c.) Unknown Non Drug Allergy Jan, Active ENCOUNTERS Encounter Location Date Diagnosis [facility] [address] [facility] [id number], [place] [address] October, [facility] [address] [facility] [id number], [place] [address] Sep, BMI 50.0-59.9, adult Z68.43 ; Fibromyalgia M79.7 ; Idiopathic neuropathy G60.9 ; Vitamin D deficiency E55.9 ; Chronic seasonal allergic rhinitis, unspecified trigger J30.2 and Long-term use of high-risk medication Z79.899 [facility] [id number] [place] [address] 52451- 8943 Aug, Fibromyalgia M79.7 [facility] [address] [address]- [address]113 Aug, No diagnosis or condition on Perris I Z03.89 [facility] [address] 10578- 9811 Aug, Chronic seasonal allergic rhinitis, unspecified trigger J30.2 ; Fibromyalgia M79.7 ; Heartburn R12 ; Pre-diabetes R73.03 ; Change of voice R49.9 and BMI 50.0-59.9, adult Z68.43 [facility] [address] [address]53- 7860 Aug, Fibromyalgia M79.7 [facility] [address] 95659- 5103 May, Chronic seasonal allergic rhinitis, unspecified trigger J30.2 ; Vaginal itching L29.8 and Vaginal yeast infection B37.3 [facility] [id number] [place] [address] 56173- 3262 May, Arthritis of both knees M19.90 [facility] [id number] [place] [address] 99263 -4873 May, Herpes zoster without complication B02.9 and Vaginal penny B37.3 [facility] [id number] [place] [address] 32523- 1285 Mar, [facility] [address] 89230- 6299 Mar, Arthritis of both knees M19.90 [facility] [id number] [place] [address] 04464- 9441 Mar, Arthritis of both knees M19.90 ; Elevated serum creatinine R79.89 ; Fibromyalgia M79.7 ; Idiopathic neuropathy G60.9 ; Vitamin D deficiency E55.9 ; Pre-diabetes R73.03 and Insomnia due to medical condition G47.01 [facility] [id number] [place] [address] 70372- 4962 Mar, [facility] [id number] [place] [address] 29554- 9434 Jan, [facility] [address] 57848- 0899 Jan, Pes planus of left foot M21.42 ; Plantar fasciitis of left foot M72.2 and Neuropathy G62.9 [facility] [id number] [place] [address] 84653- 0743 Jan, Arthritis of both knees M19.90 ; Fibromyalgia M79.7 ; Idiopathic neuropathy G60.9 ; Vitamin D deficiency E55.9 ; Pre-diabetes R73.03 ; Insomnia due to medical condition G47.01 ; Bad odor of urine R82.90 and SI ( sacroiliac) pain M53.3 [facility] [id number] [place] [address] 36866- 7349 Jan, [facility] [id number] [place] [address] 09582- 2058 Jan, Elevated serum creatinine R79.89 [facility] [id number] [place] [address] 88475- 5158 Dec, [facility] [id number] [place] [address] 95483- 7167 Dec, Arthritis of both knees M19.90 ; Fibromyalgia M79.7 ; Idiopathic neuropathy G60.9 ; Vitamin D deficiency E55.9 and Pre-diabetes R73.03 [facility] [id number] [place] [address] 43350- 8759 Dec, Arthritis of both knees M19.90 [facility] [id number] [place] [address] 23800- 7415 October, [facility] [id number] [place] [address] 75121- 2505 October, [facility] [id number] [place] [address] 35781- 1848 October, Fibromyalgia M79.7 [facility] [id number] [place] [address] 70282- 8249 October, Skin tag L91.8 ; Left foot pain M79.672 and Rash and nonspecific skin eruption R21 [facility] [id number] [place] [address] 33334- 2292 Aug, [facility] [address] 62068- 2380 Aug, Arthritis of both knees M19.90 ; Fibromyalgia M79.7 ; Idiopathic neuropathy G60.9 ; Vitamin D deficiency E55.9 ; Morbid obesity due to excess calories E66.01 and History of prediabetes Z87.898 [facility] [id number] [place] [address] 34458 -3806 Aug, Blood in ear canal, right H92.21 [facility] [id number] [place] [address] 57126- 9644 Jul, [facility] [id number] [place] [address] 11107- 4494 Jul, Arthritis of both knees M19.90 ; Fibromyalgia M79.7 ; Idiopathic neuropathy G60.9 and Vitamin D deficiency E55.9 [facility] [id number] [place] [address] 01899- 8227 Jul, Fibromyalgia M79.7 [facility] [id number] [place] [address] 77951- 0556 May, Fibromyalgia M79.7 ; Idiopathic neuropathy G60.9 ; Vitamin D deficiency E55.9 ; Memory change R41.3 ; Xerostomia K11.7 and Heartburn R12 [facility] [address] 94603- 3754 May, Fibromyalgia M79.7 ; Idiopathic neuropathy G60.9 ; Vitamin D deficiency E55.9 and Memory change R41.3 [facility] [id number] [place] [address] 62578- 3956 May, [facility] [id number] [place] [address] 87922- 4228 Mar, [facility] [id number] [place] [address] 57591- 0794 Jan, [facility] [id number] [place] [address] 07584- 1879 Jan, [facility] [id number] [place] [address] 49404- 3665 Jan, Dermatitis L30.9 ; Pain in right shoulder M25.511 ; Fibromyalgia M79.7 and H/O right knee surgery Z98.89 [facility] [id number] [place] [address] 24677- 4204 Dec, [facility] [id number] [place] [address] 68908- 0580 Dec, Middle ear effusion, right H65.91 ; Fibromyalgia M79.7 and Heartburn R12 [facility] [id number] [place] [address] 54001 -6635 Dec, Otalgia of right ear H92.01 and Middle ear effusion, right H65.91 [facility] [id number] [place] [address] 39246- 3920 Nov, Acute pain of right knee M25.561 [facility] [id number] [place] [address] 94873- 2018 Nov, [facility] [id number] [place] [address] 76163- 1342 07 Nov, 2015 Acute pain of right knee M25.561 [facility] [id number] [place] [address] 63860- 1808 October, Osteoarthritis of both knees, unspecified osteoarthritis type M17.0 [facility] [id number] [place] [address] 42220- 1140 October, [facility] [id number] [place] [address] 23606- 9220 Sep, [facility] [address] 92715- 6516 Sep, Fibromyalgia M79.7 ; Chronic fatigue R53.82 ; Sinusitis J32.9 ; Bronchiolitis J21.9 ; Weight gain R63.5 and Heartburn R12 [place] [id number] [place] [address] 95368- 7805 Sep, Mild hearing loss of right ear H91.91 and Tinnitus of right ear H93.11 [facility] [id number] [place] [address] 04391- 6489 Aug, [facility] [id number] [place] [address] 31273- 0847 Aug, [facility] [id number] [place] [address] 44336- 3305 Aug, Fibromyalgia M79.7 and Depression F32.9 [facility] [id number] [place] [address] 34919- 0513 Aug, [facility] [id number] [place] [address] 85579- 3184 Jul, Fibromyalgia M79.7 ; 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 ; Vitamin D deficiency E55.9 ; Long-term use of high-risk medication Z79.899 ; Heartburn R12 ; Chronic fatigue, unspecified R53.82 and Tinnitus of right ear H93.11 [facility] [id number] [place] [address] 16112- 2285 07 Mar, 2015 Fibromyalgia M79.7 ; 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 ; Vitamin D deficiency E55.9 ; Diarrhea R19.7 ; Long-term use of high- risk medication Z79.899 and Heartburn R12 [facility] [id number] [place] [address] 29830- 8730 Mar, Fibromyalgia 729.1 ; Unspecified hereditary and idiopathic peripheral neuropathy 356.9 ; Unspecified sleep disturbance 780.50 ; Left ankle pain 719.47 and Insomnia 780.52 [facility] [address] 76998- 0014 Mar, Unspecified episodic mood disorder 296.90 and Anxiety state , unspecified 300.00 [facility] [id number] [place] [address] 52834- 9436 Mar, Chondromalacia of right knee 717.7 [facility] [id number] [place] [address] 65850- 4626 Jan, [facility] [address] 10994- 6702 Dec, Left foot pain 729.5 [facility] [id number] [place] [address] 93486- 1426 Sep, [facility] [id number] [place] [address] 80503- 3352 Sep, [facility] [id number] [place] [address] 58640- 9489 Aug, [facility] [id number] [place] [address] 83756- 9550 17 Aug, 2014 [facility] [id number] [place] [address] 27456- 8674 Aug, [facility] [id number] [place] [address] [id number]- 8056 16 Aug, 2014 [facility] [id number] [place] [address] 788119- 3163 11 Aug, 2014 [facility] [id number] [place] [address] 20869- 7163 Aug, [facility] [place] [facility] [address] [id number] [place] [address]- 6068 Aug, [facility] [place] [facility] [address] [id number] [place] [address]- 5763 Aug, [facility] [place] [facility] [address] [facility] [id number] [place] [address]- 9833 Aug, [facility] [place] [facility] [address] [id number] [place] [address]- 9133 Aug, [facility] [place] [facility] [address] [id number] [place] [address]- 1831 Aug, [facility] [place] [facility] [address] [facility] [id number] [place] [address]- 6607 Aug, [facility] [place] [facility] [address] [facility] [id number] [place] [address]- 0039 Aug, [facility] [place] [facility] [address] [facility] [id number] [place] [address]- 6425 Aug, [facility] [place] [facility] [address] [facility] [id number] [place] [address]- 0401 Aug, [facility] [place] [facility] [address] [facility] [id number] [place] [address]- 5807 Aug, [facility] [place] [facility] [address] [facility] [id number] [place] [address]- 7611 Jul, [facility] [place] [facility] [address] [facility] [id number], [place] [address]- 5299 Jul, [facility] [place] [facility] [address] [facility] [id number], [place] [address]- 4940 Jul, [facility] [place] [facility] [address] [facility] [id number], [place] [address]- 4879 Jul, [facility] [place] [facility] [address] [facility] [id number], [place] [address]- 7680 May, [facility] [place] [facility] [address] [id number] [place] [address]- 7786 May, [facility] [place] [facility] [address] [id number] [place] [address]- 3819 May, [facility] [place] [facility] [address] [id number] [place] [address]- 7792 Mar, [facility] [place] [facility] [address] [id number] [place] [address]- 5753 Mar, [facility] [place] [facility] [address] [id number] [place] [address]- 2269 Mar, [facility] [place] [facility] [address] [id number] [place] [address]- 1477 Mar, [facility] [place] [facility] [address] [id number] [place] [address]- 1159 Dec, [facility] [place] [facility] [address] [id number] [place] [address]- 0503 Dec, [facility] [place] [facility] [address] [id number] [place] [address]- 6931 Nov, [facility] [place] [facility] [address] [id number] [place] [address]- 5885 Nov, [facility] [place] [facility] [address] [id number] [place] [address]- 5740 Nov, [facility] [place] [facility] [address] [id number] [place] [address]- 2102 Nov, [facility] [place] [facility] [address] [id number] [place] [address]- 5185 Nov, [facility] [place] [facility] [address] [id number] [place] [address]- 0523 Nov, [facility] [place] [facility] [address] [id number] [place] [address]- 8048 October, [facility] [place] [facility] [address] [id number] [place] [address]- 1934 October, [facility] [place] [facility] [address] [id number] [place] [address]- 4347 October, [facility] [place] [facility] [address] [id number] [place] [address]- 5346 October, [facility] [place] [facility] [address] [id number] [place] [address]- 3516 October, [facility] [place] [facility] [address] [id number] [place] [address]- 4175 October, [facility] [place] [facility] [address] [id number] [place] [address]- 8193 October, [facility] [place] [facility] [address] [id number] [place] [address]- 7071 October, [facility] [place] [facility] [address] [id number] [place] [address]- 8032 October, [facility] [place] [facility] [address] [id number] [place] [address]- 3254 October, [facility] [place] [facility] [address] [id number] [place] [address]- 6837 October, [facility] [place] [facility] [address] [id number] [place] [address]- 9598 October, [facility] [place] [facility] [address] [id number] [place] [address]- 7264 October, [facility] [place] [facility] [address] [id number] [place] [address]- 6039 Sep, [facility] [place] [facility] [address] [id number] [place] [address]- 1167 Sep, [facility] [place] [facility] [address] [id number] [place] [address]- 6022 Aug, [facility] [place] [facility] [address] [id number] [place] [address]- 3743 Aug, [facility] [place] [facility] [address] [id number] [place] [address]- 9999 Aug, [facility] [address] [id number] [place] 8787 Aug, [facility] [place] [facility] [address] [id number] [place] [address]- 2186 Aug, [facility] [place] [facility] [address] [id number] [place] [address]- 2518 Aug, [facility] [place] [facility] [address] [id number] [place] [address]- 5579 Aug, [facility] [place] [facility] [address] [id number] [place] [address]- 8537 Aug, [facility] [place] [facility] [address] [id number] [place] [address]- 8513 Aug, [facility] [place] [facility] [address] [id number] [place] [address]- 7416 Aug, [facility] [place] [facility] [address] [id number] [place] [address]- 8789 Aug, [facility] [place] [facility] [address] [id number] [place] [address]- 3834 Aug, [facility] [place] [place] [place] [facility] [address] [facility] [id number] [place] [address]- 3230 Jul, [facility] [place] [facility] [address] [id number] [place] [address]- 5628 Jul, [facility] [place] [facility] [address] [id number] [place] [address]- 0937 Jul, [facility] [place] [facility] [address] [id number] [place] [address]- 9709 Jul, [facility] [place] [facility] [address] [id number] [place] [address]- 1808 Mar, [facility] [place] [facility] [address] [id number] [place] [address]- 1497 Mar, [facility] [address] [id number] [place] [address]- 5167 Jan, [facility] [place] [facility] [address] [id number] [place] [address]- 9638 Sep, [facility] [place] [facility] [address] [id number] [place] [address]- 0337 14 Aug, 2012 [facility] [place] [facility] [address] [id number] [place] [address]- 7261 Aug, [facility] [place] [facility] [address] [id number] [place] [address]- 6582 Aug, [facility] [place] [facility] [address] [id number] [place] [address]- 6102 Aug, [facility] [place] [facility] [address] [id number] [place] [address]- 1734 Aug, [facility] [place] [facility] [address] [id number] [place] [address]- 0953 October, [facility] [place] [facility] [address] [id number] [place] [address]- 7660 October, [facility] [place] [facility] [address] [id number] [place] [address]- 6462 Sep, [facility] [place] [facility] [address] [id number] [place] [address]- 9674 Sep, [facility] [place] [facility] [address] [id number] [place] [address]- 4353 25 Sep, 2011 [facility] [place] [facility] [address] [id number] [place] [address]- 9418 19 Sep, 2011 [facility] [place] [facility] [address] [id number] [place] [address]- 2003 18 Sep, 2011 [facility] [place] [facility] [address] [id number] [place] [address]- 3109 Sep, [facility] [place] [facility] [address] [id number] [place] [address]- 7454 10 Sep, 2011 [facility] [address] [id number] [place] [address]- 8613 Sep, [facility] [place] [facility] [address] [id number] [place] [address] 2546 Sep, [facility] [address] [id number] [place] [address]- 0776 Sep, [facility] [address] [id number] [place] [address]- 6786 Aug, [facility] [address] [id number] [place] [address]- 2846 17 Aug, 2011 [facility] [address] [id number] [place] [address]- 1026 13 Aug, 2011 [facility] [address] [id number] [place] [address]- 2591 Aug, [facility] [address] [id number] [place] [address]- 1784 Jul, [facility] [address] [id number] [place] [address]- 2916 Jul, [facility] [address] [id number] [place] [address]- 5028 Jul, [facility] [address] [id number] [place] [address]- 3846 May, [facility] [address] [id number] [place] [address] 2541 May, [facility] [place] [facility] [address] [id number] [place] [address]- 5356 May, [facility] [place] [facility] [address] [id number] [place] [address]- 2546 Jan, [facility] [place] [facility] [address] [id number] [place] [address] Dec, IMMUNIZATIONS No Known Immunizations SOCIAL HISTORY Never Assessed REASON FOR VISIT Left Foot Pain-xray done PLAN OF CARE Activity Details Follow Up 3 Months Reason: VITAL SIGNS Height 68 in 2017-02-22 Blood pressure systolic 144 mmHg 2017-02-22 Blood pressure diastolic 74 mmHg 2017-02-22 MEDICATIONS Medication Instructions Dosage Frequency Start Date End Date Duration Status Omeprazole 40 MG Orally Once a day 1 capsule 24h Active Cetirizine HCl 10 MG Orally Once a day 1 tablet 24h Active Wheelchair - xtra large Jul, Active Vitamin D3 5000 UNIT Orally Once a day 1 tablet 24h 30 day(s) Active Cyclobenzaprine HCl 10 mg Orally Three times a day 1 tablet 8h 30 Active Carbamazepine 200 MG Orally Twice a day 1 tablet 12h Active Fluticasone Propionate 50 MCG/ACT Nasally Once a day 1 spray in each nostril 24h 28 Sep, 2015 Active Trazodone HCl 100 mg Orally Once a day 1/2-1 tablet at bedtime 24h 28 Active RESULTS No Results PROCEDURES Procedure Date Ordered Result Body Site INJ TENDON SHEATH/LIGAMENT Feb 22, 2017 DEPO MEDROL 80 MG/ML Feb 22, 2017 INSTRUCTIONS MEDICATIONS ADMINISTERED No Known Medications [...] History of anemia Surgical History tubal ligation 2005 Surgical History right knee surgery 01/18/2016 Surgical History tooth removal 06/16/17 Surgical History Biopsy of Uterus 06/19/17 Hospitalization History Surgeries only Hospitalization History ER chest pain 05/2017
--- OUTSIDE RECORDS SUMMARY | 2018-06-15 19:13 | XMS REPORT ---
Author Author MILIND CHU [facility] Address [address] [place] [address] Care Team Providers Care Service Department Manager Name Role Phone MILIND CHU Unavailable PROBLEMS Type Condition ICD9-CM Code FYA08-YR Code Onset Dates Condition Status SNOMED Code Problem Chronic fatigue R53.82 Active 61547691 Problem Idiopathic neuropathy G60.9 Active 11149948 Problem Systemic involvement of connective tissue, unspecified M35.9 Active 582352285 Problem No diagnosis or condition on [place] I Z03.89 Active 7462829 Problem Chronic seasonal allergic rhinitis, unspecified trigger J30.2 Active 128423293 Problem Arthritis of both knees M19.90 Active 186479847 Problem Other chronic pain G89.29 Active 97328241 Problem Insomnia due to medical condition G47.01 Active 060787819 Problem Pre-diabetes R73.03 Active 779138194 Problem History of anemia Z86.2 Active 497088488 Problem Vitamin D deficiency E55.9 Active 18172209 Problem Long-term use of high-risk medication Z79.899 Active 674439437 Problem Fibromyalgia M79.7 Active 51304048 Problem Heartburn R12 Active 40866434 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 31144530 Problem Depression F32.9 Active 29451299 ALLERGIES No Information ENCOUNTERS Encounter Location Date Diagnosis [facility] [id number] [address] Sep, [facility] [id number] [place] [address] 16401- 4914 Aug, Fibromyalgia M79.7 [facility] [address] [address] Aug, No diagnosis or condition on [place] I Z03.89 [facility] [address] [place] [address]- 8160 Aug, Chronic seasonal allergic rhinitis, unspecified trigger J30.2 ; Fibromyalgia M79.7 ; Heartburn R12 ; Pre-diabetes R73.03 ; Change of voice R49.9 and BMI 50.0-59.9, adult Z68.43 [place] [address] [address]- [address] Aug, Fibromyalgia M79.7 [place] [address] [address]- 3056 May, Chronic seasonal allergic rhinitis, unspecified trigger J30.2 ; Vaginal itching L29.8 and Vaginal yeast infection B37.3 [place] [address] 18487- 4308 May, Arthritis of both knees M19.90 [facility] [address] [address] May, Herpes zoster without complication B02.9 and Vaginal penny B37.3 [place] [address] [address]22- 9948 Mar, [place] [address] 28400- 4700 Mar, Arthritis of both knees M19.90 [place] [address] 52125- 1679 Mar, Arthritis of both knees M19.90 ; Elevated serum creatinine R79.89 ; Fibromyalgia M79.7 ; Idiopathic neuropathy G60.9 ; Vitamin D deficiency E55.9 ; Pre-diabetes R73.03 and Insomnia due to medical condition G47.01 [place] [address] 51600- 8377 Mar, [place] [address] 26261- 2611 Jan, [place] [address] 67349- 8855 Jan, Pes planus of left foot M21.42 ; Plantar fasciitis of left foot M72.2 and Neuropathy G62.9 [place] [id number] [place] [address] 03376- 9330 Jan, Arthritis of both knees M19.90 ; Fibromyalgia M79.7 ; Idiopathic neuropathy G60.9 ; Vitamin D deficiency E55.9 ; Pre-diabetes R73.03 ; Insomnia due to medical condition G47.01 ; Bad odor of urine R82.90 and SI ( sacroiliac) pain M53.3 [place] [id number] [place] [address] 71906- 0551 Jan, [place] [id number] [place] [address] 45539- 6275 Jan, Elevated serum creatinine R79.89 [place] [id number] [place] [address] 75296- 4668 Dec, [place] [id number] [place] [address] 86546- 1204 Dec, Arthritis of both knees M19.90 ; Fibromyalgia M79.7 ; Idiopathic neuropathy G60.9 ; Vitamin D deficiency E55.9 and Pre-diabetes R73.03 [place] [id number] [place] [address] 93188- 7935 Dec, Arthritis of both knees M19.90 [place] [id number] [place] [address] 42946- 8339 October, [place] [id number] [place] [address] 97284- 9020 October, [place] [id number] [place] [address] 25920- 4028 October, Fibromyalgia M79.7 [place] [id number] [place] [address] 23397- 8379 October, Skin tag L91.8 ; Left foot pain M79.672 and Rash and nonspecific skin eruption R21 [place] [id number] [place] [address] 79600- 6603 14 Aug, 2016 [place] [id number] [place] [address] 27096- 9253 09 Aug, 2016 Arthritis of both knees M19.90 ; Fibromyalgia M79.7 ; Idiopathic neuropathy G60.9 ; Vitamin D deficiency E55.9 ; Morbid obesity due to excess calories E66.01 and History of prediabetes Z87.898 [facility] [id number] [place] [address] 68761 -3631 Aug, Blood in ear canal, right H92.21 [place] [address] 76978- 3469 Jul, [place] [address] 24219- 2605 Jul, Arthritis of both knees M19.90 ; Fibromyalgia M79.7 ; Idiopathic neuropathy G60.9 and Vitamin D deficiency E55.9 [place] [id number] [place] [address] 99589- 8457 Jul, Fibromyalgia M79.7 [place] [id number] [place] [address] 41553- 4748 May, Fibromyalgia M79.7 ; Idiopathic neuropathy G60.9 ; Vitamin D deficiency E55.9 ; Memory change R41.3 ; Xerostomia K11.7 and Heartburn R12 [place] [id number] [place] [address] 54048- 0073 May, Fibromyalgia M79.7 ; Idiopathic neuropathy G60.9 ; Vitamin D deficiency E55.9 and Memory change R41.3 [place] [id number] [place] [address] 71433- 3812 May, [place] [id number] [place] [address] 66866- 0440 Mar, [place] [id number] [place] [address] 19562- 8938 Jan, [facility] [id number] [place] [address] 91928- 7715 Jan, [facility] [id number] [place] [address] 83826- 6227 Jan, Dermatitis L30.9 ; Pain in right shoulder M25.511 ; Fibromyalgia M79.7 and H/O right knee surgery Z98.89 [facility] [id number] [place] [address] 72207- 1942 Dec, [facility] [address] 52966- 1024 Dec, Middle ear effusion, right H65.91 ; Fibromyalgia M79.7 and Heartburn R12 [facility] [id number] [place] [address] 14859 -0266 Dec, Otalgia of right ear H92.01 and Middle ear effusion, right H65.91 [facility] [id number] [place] [address] 39015- 0574 Nov, Acute pain of right knee M25.561 [facility] [id number] [place] [address] 77530- 0293 Nov, [facility] [id number] [place] [address] 94087- 1003 Nov, Acute pain of right knee M25.561 [facility] [id number] [place] [address] 53282- 1684 October, Osteoarthritis of both knees, unspecified osteoarthritis type M17.0 [facility] [id number] [place] [address] 03651- 2979 October, [facility] [id number] [place] [address] 69987- 3037 Sep, [facility] [address] 97062- 9460 Sep, Fibromyalgia M79.7 ; Chronic fatigue R53.82 ; Sinusitis J32.9 ; Bronchiolitis J21.9 ; Weight gain R63.5 and Heartburn R12 [place] [id number] [place] [address] 88052- 7319 Sep, Mild hearing loss of right ear H91.91 and Tinnitus of right ear H93.11 [place] [id number] [place] [address] 51630- 7571 Aug, [place] [address] 97976- 6642 Aug, [address] 07213- 4360 Aug, Fibromyalgia M79.7 and Depression F32.[address] 32954- 2365 Aug, [place] [id number] [place] [address] 43332- 6327 Jul, Fibromyalgia M79.7 ; 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 ; Vitamin D deficiency E55.9 ; Long-term use of high-risk medication Z79.899 ; Heartburn R12 ; Chronic fatigue, unspecified R53.82 and Tinnitus of right ear H93.11 [place] [id number] [place] [address] 04273- 3527 Mar, Fibromyalgia M79.7 ; 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 ; Vitamin D deficiency E55.9 ; Diarrhea R19.7 ; Long-term use of high- risk medication Z79.899 and Heartburn R12 [place] [id number] [place] [address] 81646- 6579 Mar, Fibromyalgia 729.1 ; Unspecified hereditary and idiopathic peripheral neuropathy 356.9 ; Unspecified sleep disturbance 780.50 ; Left ankle pain 719.47 and Insomnia 780.[address] 86652- 1660 Mar, Unspecified episodic mood disorder 296.90 and Anxiety state , unspecified 300.00 [facility] [id number] [place] [address] 37767- 8032 Mar, Chondromalacia of right knee 717.7 [facility] [address] [address]- 1372 Jan, [facility] [id number] [place] [address] 90506- 6158 Dec, Left foot pain 729.5 [facility] [id number] [place] [address] 98255- 9585 Sep, [facility] [id number] [place] [address] 134794- 0966 Sep, [facility] [id number] [place] [address] 72578- 8269 17 Aug, 2014 [facility] [address] [address]- 4776 17 Aug, 2014 [facility] [address] [address]- 5810 16 Aug, 2014 [facility] [address] [address]- 8039 16 Aug, 2014 [facility] [address] [address]- 3612 11 Aug, 2014 [facility] [address] [address]- 7865 11 Aug, 2014 [facility] [address]- 2951 11 Aug, 2014 [facility] [address]- 8934 11 Aug, 2014 [facility] [address] [address]- 7752 10 Aug, 2014 [facility] [place] [facility] [address] [id number] [place] [address]- 3162 Aug, 2014 [facility] [place] [facility] [address] [id number] [place] [address]- 3300 Aug, 2014 [facility] [place] [facility] [address] [id number] [place] [address]- 2629 Aug, 2014 [facility] [place] [facility] [address] [id number] [place] [address]- 7802 Aug, 2014 [facility] [place] [facility] [address] [id number] [place] [address]- 8970 Aug, 2014 [facility] [place] [facility] [address] [id number] [place] [address]- 9203 Aug, [facility] [place] [facility] [address] [facility] [id number] [place] [address]- 3073 Aug, [facility] [place] [facility] [address] [facility] [id number] [place] [address]- 8262 Jul, [facility] [place] [facility] [address] [facility] [id number] [place] [address]- 0139 Jul, [facility] [place] [facility] [address] [facility] [id number] [place] [address]- 2138 Jul, [facility] [place] [facility] [address] [facility] [id number] [place] [address]- 2186 Jul, [facility] [place] [facility] [address] [id number] [place] [address]- 5324 May, [facility] [place] [facility] [address] [id number] [place] [address]- 3648 May, [facility] [place] [facility] [address] [id number] [place] [address]- 1268 May, [facility] [place] [facility] [address] [id number] [place] [address]- 2703 Mar, [facility] [place] [facility] [address] [id number] [place] [address]- 8550 Mar, [facility] [place] [facility] [address] [id number] [place] [address]- 6562 Mar, [facility] [place] [facility] [address] [id number] [place] 4303 Mar, [facility] [place] [facility] [address] [id number] [place] [address]- 5083 Dec, [facility] [place] [facility] [address] [id number] [place] [address]- 0042 Dec, [facility] [place] [facility] [address] [id number] [place] [address]- 4381 Nov, [facility] [place] [facility] [address] [id number] [place] [address]- 0227 Nov, [facility] [place] [facility] [address] [id number] [place] [address]- 6524 Nov, [facility] [place] [facility] [address] [id number] [place] [address]- 0635 Nov, [facility] [place] [facility] [address] [id number] [place] [address]- 5489 Nov, [facility] [place] [facility] [address] [id number] [place] [address]- 0448 Nov, [facility] [place] [facility] [address] [id number] [place] [address]- 6615 October, [facility] [place] [facility] [address] [id number] [place] [address]- 5051 October, [facility] [place] [facility] [address] [id number] [place] [address]- 9126 October, [facility] [place] [facility] [address] [id number] [place] [address]- 1458 October, [facility] [place] [facility] [address] [id number] [place] [address]- 9268 October, [facility] [place] [facility] [address] [id number] [place] [address]- 4906 October, [facility] [address] [id number] [place] [address]- 5405 October, [facility] [address] [id number] [place] [address]- 4836 October, [facility] [address] [id number] [place] [address]- 4186 October, [facility] [address] [id number] [place] [address]- 6794 October, [facility] [address] [id number] [place] [address]- 5963 October, [facility] [address] [id number] [place] [address]- 6343 October, [facility] [address] [id number] [place] [address]- 5133 October, [facility] [address] [id number] [place] [address]- 3288 Sep, [facility] [address] [id number] [place] [address]- 9912 Sep, [facility] [address] [id number] [place] [address]- 0330 Aug, [facility] [place] [facility] [address] [id number] [place] [address]- 6295 Aug, [facility] [place] [facility] [address] [id number] [place] [address]- 8894 Aug, [facility] [place] [facility] [address] [id number] [place] [address]- 1611 Aug, [facility] [place] [facility] [address] [id number] [place] [address]- 6176 Aug, [facility] [place] [facility] [address] [id number] [place] [address]- 6069 Aug, [facility] [address] [id number] [place] [address]- 5130 Aug, [facility] [place] [facility] [address] [id number] [place] [address]- 8052 Aug, [facility] [place] [facility] [address] [id number] [place] [address]- 5526 Aug, [facility] [place] [facility] [address] [id number] [place] [address]- 2356 Aug, [facility] [place] [facility] [address] [id number] [place] [address]- 9373 Aug, [facility] [place] [facility] [address] [id number] [place] [address]- 0371 Aug, [facility] [place] [facility] [address] [id number] [place] [address]- 6126 Jul, [facility] [place] [facility] [address] [id number] [place] [address]- 7830 Jul, [facility] [place] [facility] [address] [id number] [place] [address]- 1381 Jul, [facility] [place] [facility] [address] [id number] [place] [address]- 9350 Jul, [facility] [place] [facility] [address] [id number] [address]- 3450 Mar, [facility] [place] [facility] [address] [id number] [address]- 9906 Mar, [facility] [place] [facility] [address] [id number] [place] [address]- 5719 Jan, [facility] [place] [facility] [address] [id number] [place] [address]- 3263 Sep, [facility] [place] [facility] [address] [id number] [place] [address]- 1321 Aug, [facility] [place] [facility] [address] [id number] [place] [address]- 9846 12 Aug, 2012 [facility] [address] [id number] [place] [address]- 0456 08 Aug, 2012 [facility] [address] [id number] [place] [address] 2546 07 Aug, 2012 [facility] [address] [id number] [place] [address]- 9886 05 Aug, 2012 [facility] [address] [id number] [place] [address]- 1803 October, [facility] [address] [id number] [place] [address]- 0217 October, [facility] [address] [id number] [place] [address]- 9486 Sep, [facility] [address] [id number] [place] [address]- 8283 Sep, [facility] [address] [id number] [place] [address]- 9492 Sep, [facility] [address] [id number] [place] [address]- 0355 Sep, [facility] [address] [id number] [place] [address]- 6087 18 Sep, 2011 [facility] [address] [id number] [place] [address] 2542 11 Sep, 2011 [facility] [address] [id number] [place] [address]- 2544 10 Sep, 2011 [facility] [place] [facility] [address] [id number] [place] [address]- 2876 09 Sep, 2011 [facility] [address] [id number] [place] [address]- 2546 07 Sep, 2011 [facility] [address] [id number] [place] [address]- 5435 Sep, [facility] [id number] [address]- 8035 Aug, [facility] [address] [address]- 2216 Aug, [facility] [address] [address]- 8096 Aug, [facility] [address] [address]- 3196 Aug, [facility] [address] [address]- 8851 Jul, [facility] [address]- 2486 Jul, [facility] [address] [address]- 3467 Jul, [facility] [address] [address]- 6890 May, [facility] [address] 6644 May, [facility] [address] [address]- 8262 May, [facility] [id number] [address]- 0710 Jan, [facility] [id number] [address]- 0929 Dec, IMMUNIZATIONS No Known Immunizations SOCIAL HISTORY Never Assessed REASON FOR VISIT deferred lab PLAN OF CARE VITAL SIGNS MEDICATIONS Unknown [...]
--- OUTSIDE RECORDS SUMMARY | 2018-06-15 19:13 | XMS REPORT ---
Author Author MILIND CHU Organization 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 85627186 Problem Vitamin D deficiency E55.9 Active 47919302 Problem Heartburn R12 Active 69900120 Problem Idiopathic neuropathy G60.9 Active 122927526 Problem Chronic seasonal allergic rhinitis, unspecified trigger J30.2 Active 237049917 Problem Pre-diabetes R73.03 Active 438699716 Problem Other chronic pain G89.29 Active 95269763 Problem No diagnosis or condition on [place] I Z03.89 Active 1715944 Problem Insomnia due to medical condition G47.01 Active 626836648 ALLERGIES Substance Reaction Event Type Date Status Neurontin Unknown Drug Allergy Mar, Active Lyrica Nausea, diarrhea, headaches Drug Allergy Mar, Active Effexor Unknown Drug Allergy Mar, Active Demerol Unknown Drug Allergy Mar, Active Cymbalta 30 Mg Capsule, Delayed Release(e.c.) Unknown Non Drug Allergy Mar, Active ENCOUNTERS Encounter Location Date Diagnosis [facility] [address] [facility] [id number] [address] October, [facility] [address] [facility] [id number], [place] [address] Sep, BMI 50.0-59.9, adult Z68.43 ; Fibromyalgia M79.7 ; Idiopathic neuropathy G60.9 ; Vitamin D deficiency E55.9 ; Chronic seasonal allergic rhinitis, unspecified trigger J30.2 and Long-term use of high-risk medication Z79.899 [place] [address] [address] Aug, Fibromyalgia M79.7 [place] [address] 47518- 2804 Aug, No diagnosis or condition on [place] I Z03.89 [place] [address] 349123- 1490 Aug, Chronic seasonal allergic rhinitis, unspecified trigger J30.2 ; Fibromyalgia M79.7 ; Heartburn R12 ; Pre-diabetes R73.03 ; Change of voice R49.9 and BMI 50.0-59.9, adult Z68.43 [place] [address] [address]60- 1653 Aug, Fibromyalgia M79.7 [place] [address] 28027- 3147 May, Chronic seasonal allergic rhinitis, unspecified trigger J30.2 ; Vaginal itching L29.8 and Vaginal yeast infection B37.3 [place] [address] [place] [id number] [place] [address] 71749- 6773 May, Arthritis of both knees M19.90 [facility] [address] [place] [id number] [place] [address] 15206 -2654 May, Herpes zoster without complication B02.9 and Vaginal penny B37.3 [facility] [address] [place] [id number] [place] [address] 13600- 3353 Mar, [facility] [address] 9[address]- 6412 Mar, Arthritis of both knees M19.90 [facility] [address] [place] [id number] [place] [address] 48651- 2365 Mar, Arthritis of both knees M19.90 ; Elevated serum creatinine R79.89 ; Fibromyalgia M79.7 ; Idiopathic neuropathy G60.9 ; Vitamin D deficiency E55.9 ; Pre-diabetes R73.03 and Insomnia due to medical condition G47.01 [place] [address] [place] [id number] [place] [address] 30830- 8527 Mar, [place] [address] [place] [id number] [place] [address] 93265- 0416 Jan, [place] [address] 88761- 8474 Jan, Pes planus of left foot M21.42 ; Plantar fasciitis of left foot M72.2 and Neuropathy G62.9 [place] [address] [place] [id number] [place] [address] 10974- 9947 Jan, Arthritis of both knees M19.90 ; Fibromyalgia M79.7 ; Idiopathic neuropathy G60.9 ; Vitamin D deficiency E55.9 ; Pre-diabetes R73.03 ; Insomnia due to medical condition G47.01 ; Bad odor of urine R82.90 and SI ( sacroiliac) pain M53.3 [place] [address] 13811- 1039 Jan, [place] [address] [place] [id number] [place] [address] 47478- 2223 Jan, Elevated serum creatinine R79.89 [place] [address] [place] [id number] [place] [address] 03660- 6989 Dec, [place] [address] [place] [id number] [place] [address] 29097- 0065 Dec, Arthritis of both knees M19.90 ; Fibromyalgia M79.7 ; Idiopathic neuropathy G60.9 ; Vitamin D deficiency E55.9 and Pre-diabetes R73.03 [place] [address] [place] [id number] [place] [address] 19647- 4157 Dec, Arthritis of both knees M19.90 [place] [address] [place] [id number] [place] [address] 58843- 3229 October, [facility] [address] [place] [id number] [place] [address] 77870- 6342 October, [facility] [address] [place] [id number] [place] [address] 47430- 1083 October, Fibromyalgia M79.7 [place] [address] [place] [id number] [place] [address] 06249- 0231 October, Skin tag L91.8 ; Left foot pain M79.672 and Rash and nonspecific skin eruption R21 [place] [address] [place] [id number] [place] [address] 98700- 6281 Aug, [place] [address] [place] [id number] [place] [address] 01528- 5315 Aug, Arthritis of both knees M19.90 ; Fibromyalgia M79.7 ; Idiopathic neuropathy G60.9 ; Vitamin D deficiency E55.9 ; Morbid obesity due to excess calories E66.01 and History of prediabetes Z87.898 [facility] [address] [place] [id number] [place] [address] 85285 -4481 Aug, Blood in ear canal, right H92.21 [place] [address] [place] [id number] [place] [address] 33206- 0683 Jul, [place] [address] [place] [id number] [place] [address] 26078- 8792 Jul, Arthritis of both knees M19.90 ; Fibromyalgia M79.7 ; Idiopathic neuropathy G60.9 and Vitamin D deficiency E55.9 [place] [address] [place] [id number] [place] [address] 86598- 1376 Jul, Fibromyalgia M79.7 [place] [address] [place] [id number] [place] [address] 22091- 3080 May, Fibromyalgia M79.7 ; Idiopathic neuropathy G60.9 ; Vitamin D deficiency E55.9 ; Memory change R41.3 ; Xerostomia K11.7 and Heartburn R12 [place] [address] [place] [address] 06629- 5576 May, Fibromyalgia M79.7 ; Idiopathic neuropathy G60.9 ; Vitamin D deficiency E55.9 and Memory change R41.3 [facility] [address] [place] [id number] [place] [address] 05336- 2177 May, [facility] [address] [place] [id number] [place] [address] 99573- 9744 Mar, [facility] [address] [place] [id number] [place] [address] 18464- 2146 Jan, [facility] [address] [place] [id number] [place] [address] 49154- 1088 Jan, [facility] [address] [place] [id number] [place] [address] 49582- 2123 Jan, Dermatitis L30.9 ; Pain in right shoulder M25.511 ; Fibromyalgia M79.7 and H/O right knee surgery Z98.89 [facility] [address] [place] [id number] [place] [address] 83026- 9603 Dec, [facility] [address] [place] [id number] [place] [address] 03902- 7272 Dec, Middle ear effusion, right H65.91 ; Fibromyalgia M79.7 and Heartburn R12 [facility] [address] [place] [address] 30338 -1645 Dec, Otalgia of right ear H92.01 and Middle ear effusion, right H65.91 [facility] [address] [place] [address] 08544- 3619 Nov, Acute pain of right knee M25.561 [facility] [address] [place] [id number] [place] [address] 64836- 7951 Nov, [facility] [address] [place] [address] 11849- 0191 Nov, Acute pain of right knee M25.561 [place] [address] [place] [id number] [place] [address] 07767- 7492 October, Osteoarthritis of both knees, unspecified osteoarthritis type M17.0 [place] [address] [place] [id number] [place] [address] 81227- 0919 October, [place] [address] [place] [id number] [place] [address] 71312- 5330 Sep, [place] [id number] [place] [address] 38752- 2971 Sep, Fibromyalgia M79.7 ; Chronic fatigue R53.82 ; Sinusitis J32.9 ; Bronchiolitis J21.9 ; Weight gain R63.5 and Heartburn R12 [place] [id number] [place] [address] 18944- 0479 Sep, Mild hearing loss of right ear H91.91 and Tinnitus of right ear H93.11 [place] [id number] [place] [address] 37350- 5578 Aug, [place] [address] [place] [id number] [place] [address] 29087- 1616 Aug, [place] [id number] [place] [address] 67941- 5131 Aug, Fibromyalgia M79.7 and Depression F32.9 [place] [id number] [place] [address] 65606- 5214 Aug, [place] [id number] [place] [address] 47245- 2663 Jul, Fibromyalgia M79.7 ; 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 [address] [place] [id number] [place] [address] 86576- 1570 Mar, Fibromyalgia 729.1 ; Unspecified hereditary and idiopathic peripheral neuropathy 356.9 ; Unspecified sleep disturbance 780.50 ; Left ankle pain 719.[address] [facility] [address] 74095- 3019 Mar, Unspecified episodic mood disorder 296.90 and Anxiety state , unspecified 300.00 [facility] [address] 03107- 4259 Mar, Chondromalacia of right knee 717.7 [facility] [address] 51145- 9494 Jan, [facility] [address] 08353- 3700 Dec, Left foot pain 729.5 [facility] [address] 22836- 6219 Sep, [facility] [address] [place] [id number] [place] [address] 62793- 7968 Sep, [facility] [address] [place] [id number] [place] [address] 90668- 2442 17 Aug, 2014 [facility] [address] [place] [id number] [place] [address] 18497- 3564 17 Aug, 2014 [facility] [address] [place] [id number] [place] [address] 16266- 9111 16 Aug, 2014 [facility] [address] [place] [id number] [place] [address] [id number]- 9380 16 Aug, 2014 [facility] [address] [place] [id number] [place] [address] 07603- 7413 11 Aug, 2014 [facility] [place] [facility] [address] [id number] [place] [address]- 6942 Aug, [facility] [place] [facility] [address] [id number] [place] [address]- 9799 Aug, [facility] [place] [facility] [address] [id number] [place] [address]- 3929 Aug, [facility] [place] [facility] [address] [id number] [place] [address]- 6809 Aug, [facility] [place] [facility] [address] [id number] [place] [address]- 8620 Aug, [facility] [place] [facility] [address] [id number] [place] [address]- 2865 Aug, [facility] [place] [facility] [address] [id number] [place] [address]- 3412 Aug, [facility] [place] [facility] [address] [id number] [place] [address]- 9539 Aug, [facility] [place] [facility] [address] [id number] [place] [address]- 9488 Aug, [facility] [place] [facility] [address] [id number] [place] [address]- 8853 Aug, [facility] [place] [facility] [address] [id number] [place] [address]- 1858 Aug, [facility] [place] [facility] [address] [id number] [place] [address]- 9287 Jul, [facility] [place] [facility] [address] [id number] [place] [address]- 0523 Jul, [facility] [place] [facility] [address] [id number] [place] [address]- 7396 Jul, [facility] [place] [facility] [address] [id number] [place] [address]- 6434 Jul, [facility] [place] [facility] [address] [id number] [place] [address]- 8623 May, [facility] [place] [facility] [address] [id number] [place] [address]- 8331 May, [facility] [place] [facility] [address] [id number] [place] 5681 May, [facility] [place] [facility] [address] [id number] [place] [address]- 4292 Mar, [facility] [place] [facility] [address] [id number] [place] [address]- 0362 Mar, [facility] [place] [facility] [address] [id number] [place] [address]- 1188 Mar, [facility] [place] [facility] [address] [id number] [place] [address]- 0555 Mar, [facility] [place] [facility] [address] [id number] [place] [address]- 7885 Dec, [facility] [place] [facility] [address] [id number] [place] [address]- 9370 Dec, [facility] [place] [facility] [address] [id number] [place] [address]- 0142 Nov, [facility] [place] [facility] [address] [id number] [place] [address]- 0955 Nov, [facility] [place] [facility] [address] [id number] [place] [address]- 2484 Nov, [facility] [place] [facility] [address] [id number] [place] [address]- 5881 Nov, [facility] [place] [facility] [address] [id number] [place] [address]- 5143 Nov, [facility] [place] [facility] [address] [id number] [place] [address]- 1620 Nov, [facility] [place] [facility] [address] [id number] [place] [address]- 3443 October, [facility] [place] [facility] [address] [id number] [place] [address]- 5116 October, [facility] [address] [id number] [place] [address]- 4997 October, [facility] [address] [id number] [place] [address]- 6946 October, [facility] [address] [id number] [place] [address]- 4126 October, [facility] [address] [id number] [place] [address]- 8837 October, [facility] [address] [id number] [place] [address]- 1041 October, [facility] [address] [id number] [place] [address]- 0379 October, [facility] [address] [id number] [place] [address]- 2477 October, [facility] [address] [id number] [place] [address]- 8463 October, [facility] [address] [id number] [place] [address]- 6350 October, [facility] [address] [id number] [place] 6830 October, [facility] [address] [id number] [place] [address]- 4253 October, [facility] [address] [id number] [place] [address]- 5641 Sep, [facility] [place] [facility] [address] [id number] [place] [address]- 9481 Sep, [facility] [address] [id number] [place] [address]- 2936 Aug, [facility] [place] [facility] [address] [id number] [place] [address]- 0619 Aug, [facility] [place] [facility] [address] [id number] [place] [address]- 3305 Aug, [facility] [place] [facility] [address] [id number] [place] [address]- 4112 Aug, [facility] [place] [facility] [address] [id number] [place] [address]- 7114 Aug, [facility] [place] [facility] [address] [id number] [place] [address]- 5813 Aug, [facility] [place] [facility] [address] [id number] [place] [address]- 9352 Aug, [facility] [place] [facility] [address] [id number] [place] [address]- 1360 Aug, [facility] [place] [facility] [address] [id number] [place] [address]- 2534 Aug, [facility] [place] [facility] [address] [id number] [place] [address]- 3549 Aug, [facility] [place] [facility] [address] [id number] [place] [address]- 3498 Aug, [facility] [place] [facility] [address] [id number] [place] [address]- 4135 Aug, [facility] [place] [facility] [address] [id number] [place] [address]- 8837 Jul, [facility] [place] [facility] [address] [id number], [place] [address]- 3641 Jul, [facility] [place] [facility] [address] [id number] [place] [address]- 7604 Jul, [facility] [place] [facility] [address] [id number] [place] [address]- 7481 Jul, [facility] [place] [facility] [address] [id number] [place] [address]- 4928 Mar, [facility] [place] [facility] [address] [id number] [place] [address]- 7252 Mar, [facility] [address] [id number] [place] [address]- 3075 Jan, [facility] [address] [id number] [place] 7466 Sep, [facility] [address] [id number] [place] [address]- 2846 14 Aug, 2012 [facility] [address] [id number] [place] [address]- 9995 Aug, [facility] [address] [id number] [place] [address]- 6379 08 Aug, 2012 [facility] [address] [id number] [place] [address]- 1300 07 Aug, 2012 [facility] [address] [id number] [place] [address]- 1059 05 Aug, 2012 [facility] [address] [id number] [place] [address]- 6992 October, [facility] [address] [id number] [place] [address]- 5657 October, [facility] [address] [id number] [place] [address]- 0812 Sep, [facility] [address] [id number] [place] [address]- 3357 Sep, [facility] [address] [id number] [place] [address]- 2545 Sep, [facility] [place] [facility] [address] [id number] [place] [address]- 7690 Sep, [facility] [place] [facility] [address] [id number] [place] [address]- 2545 18 Sep, 2011 [facility] [place] [facility] [address] [id number] [place] [address]- 1359 Sep, [facility] [place] [facility] [address] [id number] [place] [address] 10 Sep, 2011 [facility] [place] [facility] [address] [id number] [place] [address] Sep, [facility] [place] [facility] [address] [id number] [place] [address] Sep, [facility] [place] [facility] [address] [id number] [place] [address] Sep, [facility] [place] [facility] [address] [id number] [place] [address] Aug, [facility] [place] [facility] [address] [id number] [place] [address] 17 Aug, 2011 [facility] [place] [facility] [address] [id number] [place] [address] 13 Aug, 2011 [facility] [place] [facility] [address] [id number] [place] [address] Aug, [facility] [place] [facility] [address] [id number] [place] [address] Jul, [facility] [place] [facility] [address] [id number] [place] [address] Jul, [facility] [place] [facility] [address] [id number] [place] [address] Jul, [facility] [place] [facility] [address] [id number] [place] [address] May, [facility] [place] [facility] [address] [id number] [place] [address] May, [facility] [place] [facility] [address] [id number] [place] [address] May, [facility] [place] [facility] [address] [id number] [place] [address] Jan, [facility] [place] [facility] [address] [facility] [id number] [place] [address] Dec, IMMUNIZATIONS No Known Immunizations SOCIAL HISTORY Never Assessed REASON FOR VISIT Insomnia f/u---DBennettRN PLAN OF CARE Activity Details Follow Up 2 Months Reason:Insomnia VITAL SIGNS Height 68 in 2017-03-26 Weight 330 lbs 2017-03-26 Temperature 98.4 degrees Fahrenheit 2017-03-26 Heart Rate 80 bpm 2017-03-26 Respiratory Rate 20 2017-03-26 BMI 50.17 kg/m2 2017-03-26 Blood pressure systolic 104 mmHg 2017-03-26 Blood pressure diastolic 70 mmHg 2017-03-26 MEDICATIONS Medication Instructions Dosage Frequency Start Date End Date Duration Status Cyclobenzaprine HCl 10 mg Orally Three times a day 1 tablet 8h 30 Active Vitamin D3 5000 UNIT Orally Once a day 1 tablet 24h 30 day(s) Active Hydrocodone-Acetaminophen 7.5-325 MG Orally 2 times a day prn 1/2-1 tablet Dec, Mar, 28 days Active Fluticasone Propionate 50 MCG/ACT Nasally Once a day 1 spray in each nostril 24h Sep, Active Wheelchair - xtra large Jul, Active Omeprazole 40 MG Orally Once a day 1 capsule 24h Active Cetirizine HCl 10 MG Orally Once a day 1 tablet 24h Active Carbamazepine 200 MG Orally Twice a day 1 tablet 12h Active RESULTS Name Result Date Reference Range [facility] 2017-03-26 Glucose, Serum 99 65-99 BUN 14 6-20 Creatinine, Serum 0.86 0.57-1.00 eGFR If NonAfricn Am 88 >59 eGFR If Africn Am 101 >59 BUN/Creatinine Ratio 16 9-23 Sodium, Serum 142 134-144 Potassium, Serum 4.4 3.5-5.2 Chloride, Serum 102 96-106 Carbon Dioxide, Total 25 18-29 Calcium, Serum 8.9 8.7-10.2 Protein, Total, Serum 6.7 6.0-8.5 Albumin, Serum 4.0 3.5-5.5 Globulin, Total 2.7 1.5-4.5 A/G Ratio 1.5 1.2-2.2 Bilirubin, Total <0.2 0.0-1.2 Alkaline Phosphatase, S 85 39-117 AST (SGOT) 15 0-40 ALT (SGPT) 16 0-32 PROCEDURES Procedure Date Ordered Result Body Site LAB NOT BILLED BY [facility] Mar 26, 2017 VENIPUNCT, ROUTINE* Mar 26, 2017 INSTRUCTIONS MEDICATIONS ADMINISTERED No Known Medications [...]
--- OUTSIDE RECORDS SUMMARY | 2018-06-15 19:14 | XMS REPORT ---
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 Role Phone MILIND CHU Unavailable PROBLEMS Type Condition ICD9-CM Code RXL29-DO Code Onset Dates Condition Status SNOMED Code Problem Other chronic pain G89.29 Active 78321022 Problem Pre-diabetes R73.03 Active 750967107 Problem Arthritis of both knees M19.90 Active 315408280 Problem Paresthesia of skin R20.2 Active 54422652 Problem Morbid obesity E66.01 Active 697973129 Problem No diagnosis or condition on [place] I Z03.89 Active 4363205 Problem Insomnia due to medical condition G47.01 Active 202428110 Problem Idiopathic neuropathy G60.9 Active 408582760 Problem Chronic seasonal allergic rhinitis, unspecified trigger J30.2 Active 864673145 Problem Abnormal x-ray of cervical spine R93.7 Active 850259593 Problem Vitamin D deficiency E55.9 Active 11761403 Problem Heartburn R12 Active 18701053 Problem Fibromyalgia M79.7 Active 50123114 Problem Long-term use of high-risk medication Z79.899 Active 698343797 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 [id number] [address] Nov, [facility] [address] [facility] [id number] [place] [address] 12125- 4477 Nov, Arthritis of both knees M19.90 and Vitamin D deficiency E55.9 [facility] [id number] [place] [address] 67110- 8628 Nov, Chronic seasonal allergic rhinitis, unspecified trigger J30.2 and Heartburn R12 [facility] [id number] [place] [address] 76165- 6878 Nov, [facility] [address] 70485- 1056 Nov, Vitamin D deficiency E55.9 [facility] [id number] [place] [address] 53984- 7317 October, Morbid obesity E66.01 ; Hemorrhoids, unspecified hemorrhoid type K64.9 ; Pre-diabetes R73.03 and BMI 50.0-59.9, adult Z68.43 [facility] [id number] [place] [address] 33812- 0948 October, [facility] [id number] [place] [address] 02890- 2102 October, [facility] [id number] [place] [address] 52486- 7468 October, Left arm numbness R20.0 ; Paresthesia of skin R20.2 ; Anesthesia of skin R20.0 and BMI 50.0-59.9, adult Z68.43 [facility] [id number] [place] [address] 05776- 7468 Sep, BMI 50.0-59.9, adult Z68.43 ; Fibromyalgia M79.7 ; Idiopathic neuropathy G60.9 ; Vitamin D deficiency E55.9 ; Chronic seasonal allergic rhinitis, unspecified trigger J30.2 and Long-term use of high-risk medication Z79.899 [facility] [id number] [place] [address] 88412- 4662 Aug, Fibromyalgia M79.7 [facility] [id number] [place] [address] 46837- 0989 Aug, No diagnosis or condition on [place] I Z03.89 [facility] [address] 67340- 7052 Aug, Chronic seasonal allergic rhinitis, unspecified trigger J30.2 ; Fibromyalgia M79.7 ; Heartburn R12 ; Pre-diabetes R73.03 ; Change of voice R49.9 and BMI 50.0-59.9, adult Z68.43 [facility] [address] 18520- 0530 Aug, Fibromyalgia M79.[address] 82737- 1910 May, Chronic seasonal allergic rhinitis, unspecified trigger J30.2 ; Vaginal itching L29.8 and Vaginal yeast infection B37.[address] 19959- 7819 May, Arthritis of both knees M19.90 [facility] [id number] [place] [address] 71409 -4759 May, Herpes zoster without complication B02.9 and Vaginal penny B37.3 [facility] [id number] [place] [address] 39130- 2567 Mar, [facility] [id number] [place] [address] 26389- 4986 Mar, Arthritis of both knees M19.90 [facility] [id number] [place] [address] 01756- 3429 Mar, Arthritis of both knees M19.90 ; Elevated serum creatinine R79.89 ; Fibromyalgia M79.7 ; Idiopathic neuropathy G60.9 ; Vitamin D deficiency E55.9 ; Pre-diabetes R73.03 and Insomnia due to medical condition G47.01 [facility] [id number] [place] [address] 57300- 4782 Mar, [facility] [id number] [place] [address] 92900- 4851 Jan, [facility] [id number] [place] [address] 12963- 3111 Jan, Pes planus of left foot M21.42 ; Plantar fasciitis of left foot M72.2 and Neuropathy G62.9 [facility] [address] 30342- 2409 Jan, Arthritis of both knees M19.90 ; Fibromyalgia M79.7 ; Idiopathic neuropathy G60.9 ; Vitamin D deficiency E55.9 ; Pre-diabetes R73.03 ; Insomnia due to medical condition G47.01 ; Bad odor of urine R82.90 and SI ( sacroiliac) pain M53.3 [facility] [id number] [place] [address] 41384- 0155 Jan, [facility] [id number] [place] [address] 20260- 4907 Jan, Elevated serum creatinine R79.89 [facility] [id number] [place] [address] 40735- 5827 Dec, [facility] [id number] [place] [address] 94648- 0674 Dec, Arthritis of both knees M19.90 ; Fibromyalgia M79.7 ; Idiopathic neuropathy G60.9 ; Vitamin D deficiency E55.9 and Pre-diabetes R73.03 [facility] [id number] [place] [address] 22188- 9134 Dec, Arthritis of both knees M19.90 [facility] [id number] [place] [address] 47156- 5886 October, [facility] [id number] [place] [address] 97220- 1573 October, [facility] [id number] [place] [address] 97508- 4808 09 May, 2017 Fibromyalgia M79.7 [facility] [id number] [place] [address] 67348- 8009 October, Skin tag L91.8 ; Left foot pain M79.672 and Rash and nonspecific skin eruption R21 [facility] [id number] [place] [address] 97194- 3025 Aug, [facility] [address] 72181- 7579 Aug, Arthritis of both knees M19.90 ; Fibromyalgia M79.7 ; Idiopathic neuropathy G60.9 ; Vitamin D deficiency E55.9 ; Morbid obesity due to excess calories E66.01 and History of prediabetes Z87.898 [facility] [id number] [place] [address] 34940 -4185 Aug, Blood in ear canal, right H92.21 [facility] [facility] [address] 05306- 9571 Jul, [facility] [address] 97954- 0613 Jul, Arthritis of both knees M19.90 ; Fibromyalgia M79.7 ; Idiopathic neuropathy G60.9 and Vitamin D deficiency E55.9 [facility] [id number] [place] [address] 41903- 1360 Jul, Fibromyalgia M79.7 [facility] [id number] [place] [address] 74289- 8270 May, Fibromyalgia M79.7 ; Idiopathic neuropathy G60.9 ; Vitamin D deficiency E55.9 ; Memory change R41.3 ; Xerostomia K11.7 and Heartburn R12 [place] [facility] [address] 72971- 6087 May, Fibromyalgia M79.7 ; Idiopathic neuropathy G60.9 ; Vitamin D deficiency E55.9 and Memory change R41.3 [place] [facility] [address] 82766- 5721 May, [facility] [id number] [place] [address] 64320- 3299 Mar, [facility] [id number] [place] [address] 93561- 9452 Jan, [facility] [id number] [place] [address] 12136- 4138 Jan, [facility] [id number] [place] [address] 60950- 9231 Jan, Dermatitis L30.9 ; Pain in right shoulder M25.511 ; Fibromyalgia M79.7 and H/O right knee surgery Z98.89 [facility] [id number] [place] [address] 29821- 5926 Dec, [facility] [id number] [place] [address] 54055- 7214 Dec, Middle ear effusion, right H65.91 ; Fibromyalgia M79.7 and Heartburn R12 [facility] [id number] [place] [address] 27546 -0137 Dec, Otalgia of right ear H92.01 and Middle ear effusion, right H65.91 [facility] [address] [address]- 0522 Nov, Acute pain of right knee M25.561 [facility] [id number] [place] [address] 93398- 2788 Nov, [facility] [id number] [place] [address] 92404- 3882 Nov, Acute pain of right knee M25.561 [facility] [id number] [place] [address] 53413- 6238 October, Osteoarthritis of both knees, unspecified osteoarthritis type M17.0 [facility] [id number] [place] [address] 23567- 0154 October, [facility] [id number] [place] [address] 59330- 5392 Sep, [facility] [id number] [place] [address] 46612- 2520 Sep, Fibromyalgia M79.7 ; Chronic fatigue R53.82 ; Sinusitis J32.9 ; Bronchiolitis J21.9 ; Weight gain R63.5 and Heartburn R12 [facility] [id number] [place] [address] 85757- 4513 Sep, Mild hearing loss of right ear H91.91 and Tinnitus of right ear H93.11 [facility] [id number] [place] [address] 88156- 5011 Aug, [facility] [id number] [place] [address] 10074- 7980 Aug, [facility] [address] 90237- 8228 Aug, Fibromyalgia M79.7 and Depression F32.9 [facility] [id number] [place] [address] 98977- 1034 Aug, [facility] [id number] [place] [address] 53811- 4371 Jul, Fibromyalgia M79.7 ; 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 ; Vitamin D deficiency E55.9 ; Long-term use of high-risk medication Z79.899 ; Heartburn R12 ; Chronic fatigue, unspecified R53.82 and Tinnitus of right ear H93.11 [facility] [address] [address]- 1880 Mar, Fibromyalgia M79.7 ; 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 ; Vitamin D deficiency E55.9 ; Diarrhea R19.7 ; Long-term use of high- risk medication Z79.899 and Heartburn R12 [facility] [id number] [place] [address] 92623- 4302 Mar, Fibromyalgia 729.1 ; Unspecified hereditary and idiopathic peripheral neuropathy 356.9 ; Unspecified sleep disturbance 780.50 ; Left ankle pain 719.47 and Insomnia 780.52 [facility] [id number] [place] [address] 146205- 4323 Mar, Unspecified episodic mood disorder 296.90 and Anxiety state , unspecified 300.00 [facility] [id number] [place] [address] 408145- 5910 Mar, Chondromalacia of right knee 717.7 [facility] [id number] [place] [address] 987087- 0249 Jan, [facility] [id number] [place] [address] 402158- 4449 Dec, Left foot pain 729.5 [facility] [id number] [place] [address] 99000- 7781 Sep, [facility] [id number] [place] [address] 71122- 4917 Sep, [facility] [id number] [place] [address] 91500- 6163 17 Aug, 2014 [facility] [id number] [place] [address] 15662- 9939 17 Aug, 2014 [facility] [id number] [place] [address] 24362- 9022 16 Aug, 2014 [facility] [id number] [place] [address] 76166- 9394 16 Aug, 2014 [facility] [address] [address]- 3904 11 Aug, 2014 [facility] [id number] [place] [address] 29634597- 3775 Aug, [facility] [id number] [place] [address] 831710- 8732 Aug, [facility] [id number] [place] [address] 62530- 9024 Aug, [facility] [place] [facility] [address] [id number] [place] [address]- 5616 Aug, [facility] [place] [facility] [address] [id number] [place] [address]- 7582 Aug, [facility] [place] [facility] [address] [facility] [id number] [place] [address]- 5005 Aug, [facility] [place] [facility] [address] [id number] [place] [address]- 7835 Aug, [facility] [place] [facility] [address] [id number] [place] [address]- 3940 Aug, [facility] [place] [facility] [address] [id number] [place] [address]- 6673 Aug, [facility] [place] [facility] [address] [facility] [id number] [place] [address]- 7078 Aug, [facility] [place] [facility] [address] [facility] [id number] [place] [address]- 8815 Aug, [facility] [place] [facility] [address] [facility] [id number] [place] [address]- 9313 Jul, [facility] [place] [facility] [address] [facility] [id number] [place] [address]- 4144 Jul, [facility] [place] [facility] [address] [facility] [id number] [place] [address]- 1273 Jul, [facility] [place] [facility] [address] [id number], [place] [address]- 8033 Jul, [facility] [place] [facility] [address] [id number] [place] [address]- 9742 May, [facility] [place] [facility] [address] [facility] [id number] [place] [address]- 3766 May, [facility] [place] [facility] [address] [facility] [id number] [place] [address]- 4818 May, [facility] [place] [facility] [address] [id number] [place] [address]- 3740 Mar, [facility] [place] [facility] [address] [id number] [place] [address]- 8266 Mar, [facility] [place] [facility] [address] [id number] [place] [address]- 3962 Mar, [facility] [place] [facility] [address] [id number] [place] [address]- 7934 Mar, [facility] [place] [facility] [address] [id number] [place] [address]- 7004 Dec, [facility] [place] [facility] [address] [id number] [place] [address]- 0136 Dec, [facility] [place] [facility] [address] [id number] [place] [address]- 4295 Nov, [facility] [place] [facility] [address] [id number] [place] [address]- 7679 Nov, [facility] [place] [facility] [address] [id number] [place] [address]- 2724 Nov, [facility] [place] [facility] [address] [id number] [place] [address]- 0017 Nov, [facility] [place] [facility] [address] [id number] [place] [address]- 7297 Nov, [facility] [place] [facility] [address] [id number] [place] [address]- 3755 Nov, [facility] [place] [facility] [address] [id number] [place] [address]- 4812 October, [facility] [place] [facility] [address] [id number] [place] [address]- 8078 October, [facility] [place] [facility] [address] [id number] [place] [address]- 3139 October, [facility] [place] [facility] [address] [id number] [place] [address]- 7618 October, [facility] [address] [id number] [place] [address]- 5813 October, [facility] [place] [facility] [address] [id number] [place] [address]- 8886 October, [facility] [place] [facility] [address] [id number] [place] [address]- 2674 October, [facility] [place] [facility] [address] [id number] [place] [address]- 1499 October, [facility] [place] [facility] [address] [id number] [place] [address]- 7857 October, [facility] [place] [facility] [address] [id number] [place] [address]- 5404 October, [facility] [place] [facility] [address] [id number] [place] [address]- 4628 October, [facility] [place] [facility] [address] [id number] [place] [address]- 6543 October, [facility] [place] [facility] [address] [id number] [place] [address]- 7195 October, [facility] [place] [facility] [address] [id number] [place] [address]- 0323 Sep, [facility] [place] [facility] [address] [id number] [place] [address]- 1733 Sep, [facility] [place] [facility] [address] [id number], [place] [address]- 4567 Aug, [facility] [place] [facility] [address] [id number] [place] [address]- 5031 Aug, [facility] [place] [facility] [address] [id number] [place] [address]- 7364 Aug, [facility] [place] [facility] [address] [id number] [place] [address]- 6725 Aug, [facility] [place] [facility] [address] [id number] [place] [address]- 9240 Aug, [facility] [place] [facility] [address] [id number] [place] [address]- 3425 Aug, [facility] [place] [facility] [address] [id number] [place] [address]- 0106 Aug, [facility] [place] [facility] [address] [id number] [place] [address]- 3750 Aug, [facility] [place] [facility] [address] [id number] [place] [address]- 1791 Aug, [facility] [place] [facility] [address] [id number] [place] [address]- 3393 Aug, [facility] [place] [facility] [address] [id number] [place] [address]- 3869 Aug, [facility] [place] [facility] [address] [id number] [place] [address]- 8258 Aug, [facility] [place] [facility] [address] [id number] [place] [address]- 8572 Jul, [facility] [place] [facility] [address] [id number] [place] [address]- 5933 Jul, [facility] [place] [facility] [address] [facility] [id number] [place] [address]- 0283 Jul, [facility] [place] [facility] [address] [id number] [place] [address]- 2163 Jul, [facility] [place] [facility] [address] [id number] [place] [address]- 2543 Mar, [facility] [place] [facility] [address] [id number] [place] [address]- 1729 Mar, [facility] [place] [facility] [address] [id number] [place] [address]- 1726 Jan, [facility] [place] [facility] [address] [id number] [place] [address]- 5541 Sep, [facility] [address] [id number] [place] [address]- 4777 14 Aug, 2012 [facility] [place] [facility] [address] [id number] [place] [address]- 5856 12 Aug, 2012 [facility] [place] [facility] [address] [id number] [place] [address]- 0350 08 Aug, 2012 [facility] [place] [facility] [address] [id number] [place] [address]- 7818 07 Aug, 2012 [facility] [place] [facility] [address] [id number] [place] [address]- 5634 Aug, [facility] [place] [facility] [address] [id number] [place] [address]- 5958 October, [facility] [place] [facility] [address] [id number] [place] [address]- 0074 October, [facility] [place] [facility] [address] [id number] [place] [address]- 4046 Sep, [facility] [place] [facility] [address] [id number] [place] [address]- 6123 Sep, [facility] [place] [facility] [address] [id number] [place] [address]- 3832 Sep, [facility] [place] [facility] [address] [id number] [place] [address]- 0793 Sep, [facility] [place] [facility] [address] [id number] [place] [address]- 0488 18 Sep, 2011 [facility] [place] [facility] [address] [id number] [place] [address]- 1026 11 Sep, 2011 [facility] [place] [facility] [address] [id number] [place] [address]- 6748 10 Sep, 2011 [facility] [place] [facility] [address] [id number] [place] [address]- 2683 09 Sep, 2011 [facility] [place] [facility] [address], [place] [address]- 2546 Sep, [facility] [address] [place] [address]- 2546 Sep, [facility] [address], [place] [address]- 2546 Aug, [facility] [address] [address]- 2546 17 Aug, 2011 [facility] [address], [place] [address]- 2546 Aug, [facility] [id number] [place] [address] 84422- 5996 Aug, [facility] [address] [place] [address]- 6376 Jul, [facility] [id number] [place] [address] 58193- 0046 Jul, [facility] [address], [place] [address]- 2426 Jul, [facility] [id number] [address] May, [facility] [id number] [place] [address] May, [facility] [id number] [place] [address] May, [facility] [id number] [address] Jan, [facility] [id number] [place] [address] Dec, IMMUNIZATIONS No Known Immunizations SOCIAL HISTORY Never Assessed REASON FOR VISIT Vaginal itching--CarleyleachMA, Refill on medication Cetirizine and fluonase PLAN OF CARE Activity Details Follow Up regular follow up Reason: VITAL SIGNS Height 68 in 2017-06-26 Weight 233.4 lbs 2017-06-26 Temperature 98.2 degrees Fahrenheit 2017-06-26 Heart Rate 90 bpm 2017-06-26 Respiratory Rate 20 2017-06-26 BMI 35.48 kg/m2 2017-06-26 Blood pressure systolic 130 mmHg 2017-06-26 Blood pressure diastolic 80 mmHg 2017-06-26 MEDICATIONS Medication Instructions Dosage Frequency Start Date End Date Duration Status Cyclobenzaprine HCl 10 mg Orally Three times a day 1 tablet 8h 30 Active Hydrocodone-Acetaminophen 7.5-325 MG Orally daily prn 1/2-1 tablet May, Jul, 28 days Active Wheelchair - xtra large Jul, Active Omeprazole 40 MG Orally Once a day 1 capsule 24h Active Tramadol HCl 50 mg Orally 2 times a day 1 tablet as needed 12h 28 days Unknown Carbamazepine 200 MG Orally Twice a day 1 tablet 12h Active Vitamin D3 5000 UNIT Orally Once a day 1 tablet 24h 30 day(s) Not- Taking Trazodone HCl 100 mg Orally Once a day 1/2-1 tablet at bedtime 24h 28 Unknown Fluticasone Propionate 50 MCG/ACT Nasally Once a day 1 spray in each nostril 24h Sep, Active Diflucan 100 mg Orally Once a day 1 tablet 24h May, Jul, 07 days Active Acyclovir 400 MG Orally Five times a day 1 tablet May, 7 days Not-Taking Cetirizine HCl 10 mg Orally Once a day 1 tablet 24h 30 Active RESULTS Name Result Date Reference Range UA LONG DIP (IN HOUSE) 2017-06-26 Lot # [id number] Exp date Clarity slightly cloudy Color geovanni Odor none GLU neg FLORENCE neg KET neg SG 1.025 BLO 3+ pH 7.0 Protein neg URO 0.2 NIT neg HUYEN neg Lot # Exp date PROCEDURES Procedure Date Ordered Result Body Site URINALYSIS, AUTO, W/O SCOPE Jun 26, 2017 INSTRUCTIONS MEDICATIONS ADMINISTERED No Known [...]
--- OUTSIDE RECORDS SUMMARY | 2018-06-15 19:14 | XMS REPORT ---
Author Author MILIND CHU [facility] Address [address] [place] [address] Care Team Providers Care Microcomputer Support Specialist Name Role Phone MILIND CHU Unavailable PROBLEMS Type Condition ICD9-CM Code YET01-WF Code Onset Dates Condition Status SNOMED Code Problem Other chronic pain G89.29 Active 78727714 Problem Pre-diabetes R73.03 Active 612355425 Problem Arthritis of both knees M19.90 Active 919679689 Problem Paresthesia of skin R20.2 Active 93109152 Problem Morbid obesity E66.01 Active 702466351 Problem No diagnosis or condition on [place] I Z03.89 Active 8742792 Problem Insomnia due to medical condition G47.01 Active 677652078 Problem Idiopathic neuropathy G60.9 Active 617674930 Problem Chronic seasonal allergic rhinitis, unspecified trigger J30.2 Active 003044734 Problem Abnormal x-ray of cervical spine R93.7 Active 112826914 Problem Vitamin D deficiency E55.9 Active 04553116 Problem Heartburn R12 Active 19405816 Problem Fibromyalgia M79.7 Active 99846850 Problem Long-term use of high-risk medication Z79.899 Active 638816091 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 83289777 Problem Depression F32.9 Active 69662236 ALLERGIES No Information ENCOUNTERS Encounter Location Date Diagnosis [facility] [address], [place] [address] Nov, [facility] [id number] [place] [address]- 9312 October, Morbid obesity E66.01 ; Hemorrhoids, unspecified hemorrhoid type K64.9 and Pre-diabetes R73.03 [facility] [id number], [place] [address] October, [place] [address] [address] October, [address] [address] October, Left arm numbness R20.0 ; Paresthesia of skin R20.2 ; Anesthesia of skin R20.0 and BMI 50.0-59.9, adult Z68.[address] [address]- [address] 17 Sep, 2017 BMI 50.0-59.9, adult Z68.43 ; Fibromyalgia M79.7 ; Idiopathic neuropathy G60.9 ; Vitamin D deficiency E55.9 ; Chronic seasonal allergic rhinitis, unspecified trigger J30.2 and Long-term use of high-risk medication Z79.[address] [address]- [address] Aug, Fibromyalgia M79.[address] [address]- 3507 Aug, No diagnosis or condition on [place] I Z03.[address] [address]- 1572 Aug, Chronic seasonal allergic rhinitis, unspecified trigger J30.2 ; Fibromyalgia M79.7 ; Heartburn R12 ; Pre-diabetes R73.03 ; Change of voice R49.9 and BMI 50.0-59.9, adult Z68.43 [place] [id number] [place] [address] 84934- 9600 Aug, Fibromyalgia M79.[address] [address]- [address] May, Chronic seasonal allergic rhinitis, unspecified trigger J30.2 ; Vaginal itching L29.8 and Vaginal yeast infection B37.[address] [address]- 1731 May, Arthritis of both knees M19.90 [facility] [id number] [place] [address] -[address]131 May, Herpes zoster without complication B02.9 and Vaginal penny B37.3 [place] [id number] [place] [address] 67659- 8737 Mar, [facility] [id number] [place] [address] 59416- 9399 Mar, Arthritis of both knees M19.90 [place] [id number] [place] [address] 93585- 4874 Mar, Arthritis of both knees M19.90 ; Elevated serum creatinine R79.89 ; Fibromyalgia M79.7 ; Idiopathic neuropathy G60.9 ; Vitamin D deficiency E55.9 ; Pre-diabetes R73.03 and Insomnia due to medical condition G47.01 [place] [id number] [place] [address]40- 8052 Mar, [place] [address] [address]- [address] Jan, [place] [address] [address]684- 4502 Jan, Pes planus of left foot M21.42 ; Plantar fasciitis of left foot M72.2 and Neuropathy G62.9 [place] [id number] [place] [address] 28857- 8905 Jan, Arthritis of both knees M19.90 ; Fibromyalgia M79.7 ; Idiopathic neuropathy G60.9 ; Vitamin D deficiency E55.9 ; Pre-diabetes R73.03 ; Insomnia due to medical condition G47.01 ; Bad odor of urine R82.90 and SI ( sacroiliac) pain M53.3 [place] [id number] [place] [address] 98669- 3871 Jan, [place] [id number] [place] [address] 36817- 1545 Jan, Elevated serum creatinine R79.89 [place] [id number] [place] [address] 46176- 9948 Dec, [place] [address] [address]14- 8412 Dec, Arthritis of both knees M19.90 ; Fibromyalgia M79.7 ; Idiopathic neuropathy G60.9 ; Vitamin D deficiency E55.9 and Pre-diabetes R73.03 [place] [address] 62418- 0360 Dec, Arthritis of both knees M19.90 [place] [id number] [place] [address] 18699- 0051 October, [place] [address] 80883- 0333 October, [place] [address] 91340- 8073 October, Fibromyalgia M79.7 [place] [id number] [place] [address] 67387- 6490 October, Skin tag L91.8 ; Left foot pain M79.672 and Rash and nonspecific skin eruption R21 [place] [id number] [place] [address] 98635- 5322 Aug, [place] [id number] [place] [address] 80369- 3739 Aug, Arthritis of both knees M19.90 ; Fibromyalgia M79.7 ; Idiopathic neuropathy G60.9 ; Vitamin D deficiency E55.9 ; Morbid obesity due to excess calories E66.01 and History of prediabetes Z87.898 [facility] [id number] [place] [address] 22174 -9147 Aug, Blood in ear canal, right H92.21 [place] [id number] [place] [address] 36961- 3972 Jul, [place] [address] [place] [address]- 9018 Jul, Arthritis of both knees M19.90 ; Fibromyalgia M79.7 ; Idiopathic neuropathy G60.9 and Vitamin D deficiency E55.9 [facility] [address] 19569- 1246 Jul, Fibromyalgia M79.7 [facility] [address] 22824- 8703 May, Fibromyalgia M79.7 ; Idiopathic neuropathy G60.9 ; Vitamin D deficiency E55.9 ; Memory change R41.3 ; Xerostomia K11.7 and Heartburn R12 [place] [address] 02464- 3593 May, Fibromyalgia M79.7 ; Idiopathic neuropathy G60.9 ; Vitamin D deficiency E55.9 and Memory change R41.3 [place] [address] 65366- 4991 May, [facility] [address] 18775- 5308 Mar, [facility] [address] 20539- 8538 Jan, [facility] [address] 02645- 6663 Jan, [facility] [address] 25892- 0863 Jan, Dermatitis L30.9 ; Pain in right shoulder M25.511 ; Fibromyalgia M79.7 and H/O right knee surgery Z98.89 [facility] [address] 92303- 5032 Dec, [facility] [address] 76171- 0286 Dec, Middle ear effusion, right H65.91 ; Fibromyalgia M79.7 and Heartburn R12 [facility] [address], [place] [address] Dec, Otalgia of right ear H92.01 and Middle ear effusion, right H65.91 [place] [id number] [place] [address] 23852- 2038 Nov, Acute pain of right knee M25.561 [place] [id number] [place] [address] 98814- 8293 Nov, [place] [id number] [place] [address] 42103- 0499 Nov, Acute pain of right knee M25.561 [place] [id number] [place] [address] 10046- 1668 October, Osteoarthritis of both knees, unspecified osteoarthritis type M17.0 [place] [id number] [place] [address] 45592- 8234 October, [place] [id number] [place] [address] 57879- 5334 Sep, [place] [id number] [place] [address] 51383- 5688 Sep, Fibromyalgia M79.7 ; Chronic fatigue R53.82 ; Sinusitis J32.9 ; Bronchiolitis J21.9 ; Weight gain R63.5 and Heartburn R12 [place] [id number] [place] [address] 46513- 4993 Sep, Mild hearing loss of right ear H91.91 and Tinnitus of right ear H93.11 [place] [id number] [place] [address] 38819- 7343 Aug, [place] [id number] [place] [address] 93618- 7441 Aug, [place] [id number] [place] [address] 69088- 2223 Aug, Fibromyalgia M79.7 and Depression F32.9 [place] [id number] [place] [address] 11454- 8985 Aug, [place] [address] 39761- 8576 Jul, Fibromyalgia M79.7 ; 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 ; Vitamin D deficiency E55.9 ; Long-term use of high-risk medication Z79.899 ; Heartburn R12 ; Chronic fatigue, unspecified R53.82 and Tinnitus of right ear H93.11 [place] [id number] [place] [address] 98264- 7957 Mar, Fibromyalgia M79.7 ; 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 ; Vitamin D deficiency E55.9 ; Diarrhea R19.7 ; Long-term use of high- risk medication Z79.899 and Heartburn R12 [place] [id number] [place] [address] 03866- 2609 Mar, Fibromyalgia 729.1 ; Unspecified hereditary and idiopathic peripheral neuropathy 356.9 ; Unspecified sleep disturbance 780.50 ; Left ankle pain 719.47 and Insomnia 780.52 [place] [id number] [place] [address] 11754- 3167 Mar, Unspecified episodic mood disorder 296.90 and Anxiety state , unspecified 300.00 [place] [id number] [place] [address] 25304- 7126 Mar, Chondromalacia of right knee 717.7 [place] [id number] [place] [address] 56077- 4287 Jan, [place] [id number] [place] [address] 03510- 5948 Dec, Left foot pain 729.5 [place] [id number] [place] [address] 00061- 7355 Sep, [place] [id number] [place] [address] 46813- 2233 Sep, [facility] [place] [facility] [address] [id number] [place] [address]- 6274 17 Aug, 2014 [facility] [place] [facility] [address] [id number] [place] [address]- 7984 17 Aug, 2014 [facility] [place] [facility] [address] [id number] [place] [address]- 3124 16 Aug, 2014 [facility] [place] [facility] [address] [id number] [place] [address]- 3939 16 Aug, 2014 [facility] [place] [facility] [address] [id number] [place] [address]- 2993 11 Aug, 2014 [facility] [place] [facility] [address] [id number] [place] [address]- 3538 11 Aug, 2014 [facility] [place] [facility] [address] [id number] [place] [address]- 4715 11 Aug, 2014 [facility] [place] [facility] [address] [id number] [place] [address]- 6874 11 Aug, 2014 [facility] [place] [facility] [address] [id number] [place] [address]- 7081 10 Aug, 2014 [facility] [place] [facility] [address] [id number] [place] [address]- 6082 10 Aug, 2014 [facility] [place] [facility] [address] [id number] [place] [address]- 4130 05 Aug, 2014 [facility] [place] [facility] [address] [id number] [place] [address]- 9412 05 Aug, 2014 [facility] [place] [facility] [address] [id number] [place] [address]- 3429 Aug, [facility] [place] [facility] [address] [id number] [place] [address]- 3745 Aug, [facility] [place] [facility] [address] [id number] [place] [address]- 8143 09 Aug, 2014 [facility] [place] [facility] [address] [id number], [place] [address]- 0092 Aug, [facility] [place] [facility] [address] [id number] [place] [address]- 0138 Jul, [facility] [place] [facility] [address] [id number] [place] [address]- 5798 Jul, [facility] [place] [facility] [address] [id number] [place] [address]- 4641 Jul, [facility] [place] [facility] [address] [id number] [place] [address]- 0493 Jul, [facility] [place] [facility] [address] [id number] [place] [address]- 5543 May, [facility] [place] [facility] [address] [id number] [place] [address]- 4490 May, [facility] [place] [facility] [address] [facility] [id number] [place] [address]- 2637 May, [facility] [place] [facility] [address] [id number] [place] [address]- 4265 Mar, [facility] [place] [facility] [address] [id number] [place] [address]- 7756 Mar, [facility] [place] [facility] [address] [facility] [id number] [place] [address]- 6382 Mar, [facility] [place] [facility] [address] [id number], [place] [address]- 5400 Mar, [facility] [place] [facility] [address] [id number], [place] [address]- 1816 Dec, [facility] [place] [facility] [address] [id number] [place] [address]- 1260 Dec, [facility] [place] [facility] [address] [id number] 3004 Nov, [facility] [place] [facility] [address] [id number] [place] 3996 Nov, [facility] [place] [facility] [address] [id number] [place] [address]- 7085 Nov, [facility] [place] [facility] [address] [id number] [place] [address]- 3509 Nov, [facility] [place] [facility] [address] [id number] [place] [address]- 7336 Nov, [facility] [place] [facility] [address] [id number] [place] [address]- 0513 Nov, [facility] [place] [facility] [address] [id number] [place] [address]- 6667 October, [facility] [place] [facility] [address] [id number] [place] [address]- 7694 October, [facility] [place] [facility] [address] [id number] [place] [address]- 0034 October, [facility] [place] [facility] [address] [id number] [place] [address]- 7191 October, [facility] [place] [facility] [address] [id number] [place] [address]- 4045 October, [facility] [place] [facility] [address] [id number] [place] [address]- 0005 October, [facility] [place] [facility] [address] [id number] [place] [address]- 6272 October, [facility] [place] [facility] [address] [id number] [place] [address]- 2420 October, [facility] [place] [facility] [address] [id number] [place] [address]- 4450 October, [facility] [place] [facility] [address] [id number] [place] [address]- 3367 October, [facility] [place] [facility] [address] [id number] [place] [address]- 8536 October, [facility] [place] [facility] [address] [id number] [place] [address]- 1236 October, [facility] [place] [facility] [address] [id number] [place] [address]- 8855 October, [facility] [place] [facility] [address] [id number] [place] [address]- 6476 Sep, [facility] [place] [facility] [address] [id number] [place] 6702 Sep, [facility] [place] [facility] [address] [id number] [place] [address]- 6502 Aug, [facility] [place] [facility] [address] [id number] [place] [address]- 0568 Aug, [facility] [place] [facility] [address] [id number] [place] [address]- 4103 Aug, [facility] [place] [facility] [address] [id number] [place] [address]- 9309 Aug, [facility] [place] [facility] [address] [id number] [place] [address]- 9737 Aug, [facility] [place] [facility] [address] [id number] [place] [address]- 9013 Aug, [facility] [place] [facility] [address] [id number] [place] [address]- 1736 Aug, [facility] [place] [facility] [address] [id number] [place] [address]- 0655 Aug, [facility] [place] [facility] [address] [id number] [place] [address]- 6819 Aug, [facility] [place] [facility] [address] [id number] [place] [address]- 3770 Aug, [facility] [place] [facility] [address] [id number] [place] [address]- 4277 Aug, [facility] [place] [facility] [address] [id number] [place] 1192 Aug, [facility] [place] [facility] [address] [id number] [place] [address]- 2024 Jul, [facility] [address] [id number] [place] [address]- 3710 Jul, [facility] [address] [id number] [place] [address]- 0755 Jul, [facility] [address] [id number] [place] [address]- 2215 Jul, [facility] [address] [id number] [place] [address]- 8464 Mar, [facility] [address] [id number] [place] [address]- 0752 Mar, [facility] [address] [id number] [place] [address]- 7061 Jan, [facility] [address] [id number] [place] [address]- 4125 Sep, [facility] [address] [id number] [place] [address]- 7206 Aug, [facility] [address] [id number] [place] [address]- 0506 Aug, [facility] [address] [facility] [id number] [place] [address]- 0389 Aug, [facility] [address] [id number] [place] [address]- 1206 Aug, [facility] [address] [id number] [place] [address]- 4799 Aug, [facility] [address] [id number] [place] [address]- 8236 October, [facility] [address] [id number] [place] [address]- 2546 October, [facility] [address] [id number] [place] [address]- 5239 Sep, [facility] [place] [facility] [address] [id number] [place] [address]- 7828 Sep, [facility] [place] [facility] [address] [id number] [place] [address]- 8945 Sep, [facility] [place] [facility] [address] [id number] [place] [address]- 0362 Sep, [facility] [place] [facility] [address] [id number] [place] [address]- 9746 18 Sep, 2011 [facility] [place] [facility] [address] [id number] [place] [address]- 1185 Sep, [facility] [place] [facility] [address] [id number] [place] [address]- 1675 Sep, [facility] [place] [facility] [address] [id number] [place] [address]- 9048 Sep, [facility] [place] [facility] [address] [id number] [place] [address]- 9759 Sep, [facility] [place] [facility] [address] [id number] [place] [address]- 1941 Sep, [facility] [place] [facility] [address] [id number] [place] [address]- 3198 Aug, [facility] [place] [facility] [address] [id number] [place] [address]- 5226 17 Aug, 2011 [facility] [place] [facility] [address] [id number] [place] [address]- 4344 Aug, [facility] [place] [facility] [address] [id number] [place] [address]- 8619 Aug, [facility] [place] [facility] [address] [id number] [place] [address]- 5788 Jul, [facility] [place] [facility] [address] [id number] [place] [address]- 7410 Jul, [facility] [place] [facility] [address] [facility] [id number] [place] [address]124 Jul, [facility] [address] [facility] [id number][place] 4973 May, [facility] [address] [facility] [id number][place]- 0613 May, [facility] [address] [facility] [id number], [place] [address]- 4707 May, [facility] [address] [facility] [id number], [place] [address]- 4560 Jan, [facility] [address] [facility] [id number], [place] [address]- 0389 Dec, IMMUNIZATIONS No Known Immunizations SOCIAL HISTORY [...]
[2018-06-15] MEDS ORDERED: NS IV 1000 ML 1,000 ML IV SCH ×2 (19:15→20:00)
--- OUTSIDE RECORDS SUMMARY | 2018-06-15 19:15 | XMS REPORT ---
Author Author MILIND CHU [facility] Address [address] [place] [address] Care Team Providers Care Business Process Manager Name Role Phone MILIND CHU Unavailable PROBLEMS Type Condition ICD9-CM Code LBV74-SY Code Onset Dates Condition Status SNOMED Code Problem Chronic fatigue R53.82 Active 09326599 Problem Idiopathic neuropathy G60.9 Active 88157202 Problem Systemic involvement of connective tissue, unspecified M35.9 Active 652908773 Problem No diagnosis or condition on Hundred I Z03.89 Active 0254889 Problem Chronic seasonal allergic rhinitis, unspecified trigger J30.2 Active 295635216 Problem Arthritis of both knees M19.90 Active 915969386 Problem Other chronic pain G89.29 Active 86143840 Problem Insomnia due to medical condition G47.01 Active 289408126 Problem Pre-diabetes R73.03 Active 067384408 Problem History of anemia Z86.2 Active 485701066 Problem Vitamin D deficiency E55.9 Active 55851111 Problem Long-term use of high-risk medication Z79.899 Active 213057789 Problem Fibromyalgia M79.7 Active 61370325 Problem Heartburn R12 Active 39734906 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 51214595 Problem Depression F32.9 Active 41089361 ALLERGIES No Information ENCOUNTERS Encounter Location Date Diagnosis [facility], [place] [id number] [address] Sep, [facility], [place] [id number] [place] [address] 87343- 4029 Aug, Fibromyalgia M79.7 [facility], [place] [address] [address] Aug, No diagnosis or condition on Hundred I Z03.89 [facility], [place] [address] [place] [address] 33397- 0042 Aug, Chronic seasonal allergic rhinitis, unspecified trigger J30.2 ; Fibromyalgia M79.7 ; Heartburn R12 ; Pre-diabetes R73.03 ; Change of voice R49.9 and BMI 50.0-59.9, adult Z68.43 [place] [address] [address]- 7074 Aug, Fibromyalgia M79.7 [place] [address] 97192- 2545 May, Chronic seasonal allergic rhinitis, unspecified trigger J30.2 ; Vaginal itching L29.8 and Vaginal yeast infection B37.3 [place] [address] 6[address]19- 8153 May, Arthritis of both knees M19.90 [facility] [address] [address] May, Herpes zoster without complication B02.9 and Vaginal penny B37.3 [place] [address] 7[address]04- 2353 Mar, [place] [address] 30904- 8783 Mar, Arthritis of both knees M19.90 [place] [address] 06154- 2421 Mar, Arthritis of both knees M19.90 ; Elevated serum creatinine R79.89 ; Fibromyalgia M79.7 ; Idiopathic neuropathy G60.9 ; Vitamin D deficiency E55.9 ; Pre-diabetes R73.03 and Insomnia due to medical condition G47.01 [place] [address] 30970- 8098 Mar, [place] [address] 33618- 1370 Jan, [place] [address] 56448- 2712 Jan, Pes planus of left foot M21.42 ; Plantar fasciitis of left foot M72.2 and Neuropathy G62.9 [place] [id number] [place] [address] 36967- 6698 Jan, Arthritis of both knees M19.90 ; Fibromyalgia M79.7 ; Idiopathic neuropathy G60.9 ; Vitamin D deficiency E55.9 ; Pre-diabetes R73.03 ; Insomnia due to medical condition G47.01 ; Bad odor of urine R82.90 and SI ( sacroiliac) pain M53.3 [place] [id number] [place] [address] 85237- 7859 Jan, [place] [id number] [place] [address] 65860- 4559 Jan, Elevated serum creatinine R79.89 [place] [id number] [place] [address] 10986- 6984 Dec, [place] [id number] [place] [address] 45155- 2435 Dec, Arthritis of both knees M19.90 ; Fibromyalgia M79.7 ; Idiopathic neuropathy G60.9 ; Vitamin D deficiency E55.9 and Pre-diabetes R73.03 [place] [id number] [place] [address] 17356- 3770 Dec, Arthritis of both knees M19.90 [place] [id number] [place] [address] 77594- 2228 October, [place] [id number] [place] [address] 11115- 6156 October, [place] [id number] [place] [address] 94639- 6920 October, Fibromyalgia M79.7 [place] [id number] [place] [address] 83314- 1869 October, Skin tag L91.8 ; Left foot pain M79.672 and Rash and nonspecific skin eruption R21 [place] [id number] [place] [address] 03923- 0232 14 Aug, 2016 [place] [id number] [place] [address] 78629- 3163 09 Aug, 2016 Arthritis of both knees M19.90 ; Fibromyalgia M79.7 ; Idiopathic neuropathy G60.9 ; Vitamin D deficiency E55.9 ; Morbid obesity due to excess calories E66.01 and History of prediabetes Z87.898 [facility] [id number] [place] [address] 82962 -1995 Aug, Blood in ear canal, right H92.21 [place] [address] 41596- 2535 Jul, [place] [address] 76727- 1246 Jul, Arthritis of both knees M19.90 ; Fibromyalgia M79.7 ; Idiopathic neuropathy G60.9 and Vitamin D deficiency E55.9 [place] [id number] [place] [address] 31925- 0949 Jul, Fibromyalgia M79.7 [place] [id number] [place] [address] 36064- 9474 May, Fibromyalgia M79.7 ; Idiopathic neuropathy G60.9 ; Vitamin D deficiency E55.9 ; Memory change R41.3 ; Xerostomia K11.7 and Heartburn R12 [place] [id number] [place] [address] 40993- 1513 May, Fibromyalgia M79.7 ; Idiopathic neuropathy G60.9 ; Vitamin D deficiency E55.9 and Memory change R41.3 [place] [id number] [place] [address] 13774- 8576 May, [place] [id number] [place] [address] 66330- 1986 Mar, [place] [id number] [place] [address] 54130- 6857 Jan, [facility], [place] [id number] [place] [address] 95280- 3666 Jan, [facility], [place] [id number] [place] [address] 59283- 4934 Jan, Dermatitis L30.9 ; Pain in right shoulder M25.511 ; Fibromyalgia M79.7 and H/O right knee surgery Z98.89 [facility], [place] [id number] [place] [address] 90202- 3027 Dec, [facility], [place] [address] 33504- 7561 Dec, Middle ear effusion, right H65.91 ; Fibromyalgia M79.7 and Heartburn R12 [facility] [id number] [place] [address] 71733 -4336 Dec, Otalgia of right ear H92.01 and Middle ear effusion, right H65.91 [facility] [place] [id number] [place] [address] 06987- 2342 Nov, Acute pain of right knee M25.561 [facility], [place] [id number] [place] [address] 51455- 5272 Nov, [facility] [place] [id number] [place] [address] 57034- 1523 Nov, Acute pain of right knee M25.561 [facility] [place] [id number] [place] [address] 74198- 4848 October, Osteoarthritis of both knees, unspecified osteoarthritis type M17.0 [facility], [place] [id number] [place] [address] 12895- 2294 October, [facility] [place] [id number] [place] [address] 11945- 5723 Sep, [facility], [place] [address] 82977- 5236 Sep, Fibromyalgia M79.7 ; Chronic fatigue R53.82 ; Sinusitis J32.9 ; Bronchiolitis J21.9 ; Weight gain R63.5 and Heartburn R12 [place] [id number] [place] [address] 48149- 1137 Sep, Mild hearing loss of right ear H91.91 and Tinnitus of right ear H93.11 [place] [id number] [place] [address] 77547- 9775 Aug, [place] [address] 90215- 9802 Aug, [address] 72413- 3194 Aug, Fibromyalgia M79.7 and Depression F32.[address] 35671- 8477 Aug, [place] [id number] [place] [address] 33483- 1035 Jul, Fibromyalgia M79.7 ; 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 ; Vitamin D deficiency E55.9 ; Long-term use of high-risk medication Z79.899 ; Heartburn R12 ; Chronic fatigue, unspecified R53.82 and Tinnitus of right ear H93.11 [place] [id number] [place] [address] 41903- 1728 Mar, Fibromyalgia M79.7 ; 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 ; Vitamin D deficiency E55.9 ; Diarrhea R19.7 ; Long-term use of high- risk medication Z79.899 and Heartburn R12 [address] [id number] [place] [address] 64605- 4078 Mar, Fibromyalgia 729.1 ; Unspecified hereditary and idiopathic peripheral neuropathy 356.9 ; Unspecified sleep disturbance 780.50 ; Left ankle pain 719.47 and Insomnia [address] 52766- 2492 Mar, Unspecified episodic mood disorder 296.90 and Anxiety state , unspecified 300.00 [facility], [place] [id number] [place] [address] 78549- 2691 Mar, Chondromalacia of right knee 717.7 [facility], [place] [address] [address]- 2610 Jan, [facility], [place] [id number] [place] [address] 38466- 8726 Dec, Left foot pain 729.5 [facility], [place] [id number] [place] [address] 96414- 8421 Sep, [facility], [place] [id number] [place] [address] 069689- 2722 Sep, [facility] [place] [id number] [place] [address] 89601- 4200 17 Aug, 2014 [facility], [place] [address] [address]- 7808 17 Aug, 2014 [facility], [place] [id number] [address]- 5950 16 Aug, 2014 [facility], [place] [address] [address]- 2129 16 Aug, 2014 [facility], [place] [address] [address]- 9324 11 Aug, 2014 [facility], [place] [address] [address]- 8018 11 Aug, 2014 [facility], [place] [address] 3631 11 Aug, 2014 [facility], [place] [address] [address]- 1007 11 Aug, 2014 [facility], [place] [address] [address]- 1485 10 Aug, 2014 [facility] [place] [facility] [address] [id number] [place] [address]- 1019 Aug, 2014 [facility] [place] [facility] [address] [id number] [place] [address]- 9253 Aug, 2014 [facility] [place] [facility] [address] [id number] [place] [address]- 7249 Aug, 2014 [facility] [place] [facility] [address] [id number] [place] [address]- 2917 Aug, 2014 [facility] [place] [facility] [address] [id number] [place] [address]- 2936 Aug, 2014 [facility] [place] [facility] [address] [id number] [place] [address]- 6646 Aug, [facility] [place] [facility] [address] [facility] [id number] [place] [address]- 8737 Aug, [facility] [place] [facility] [address] [facility] [place] [id number] [place] [address]- 8104 Jul, [facility] [place] [facility] [address] [facility] [place] [id number] [place] [address]- 9213 Jul, [facility] [place] [facility] [address] [facility] [place] [id number] [place] [address]- 0139 Jul, [facility] [place] [facility] [address] [facility] [place] [id number] [place] [address]- 2475 Jul, [facility] [place] [facility] [address] [id number] [place] [address]- 2856 May, [facility] [place] [facility] [address] [id number] [place] [address]- 9809 May, [facility] [place] [facility] [address] [id number] [place] [address]- 6957 May, [facility] [place] [facility] [address] [id number] [place] [address]- 9426 Mar, [facility] [place] [facility] [address] [id number] [place] [address]- 7297 Mar, [facility] [place] [facility] [address] [id number] [place] [address]- 9565 Mar, [facility] [place] [facility] [address] [id number] [place] 5781 Mar, [facility] [place] [facility] [address] [id number] [place] [address]- 7365 Dec, [facility] [place] [facility] [address] [id number] [place] [address]- 1250 Dec, [facility] [place] [facility] [address] [id number] [place] [address]- 7954 Nov, [facility] [place] [facility] [address] [id number] [place] [address]- 0400 Nov, [facility] [place] [facility] [address] [id number] [place] [address]- 0147 Nov, [facility] [place] [facility] [address] [id number] [place] [address]- 9130 Nov, [facility] [place] [facility] [address] [id number] [place] [address]- 8622 Nov, [facility] [place] [facility] [address] [id number] [place] [address]- 6265 Nov, [facility] [place] [facility] [address] [id number] [place] [address]- 2746 October, [facility] [place] [facility] [address] [id number] [place] [address]- 8322 October, [facility] [place] [facility] [address] [id number] [place] [address]- 6320 October, [facility] [place] [facility] [address] [id number] [place] [address]- 6026 October, [facility] [place] [facility] [address] [id number] [place] [address]- 2629 October, [facility] [place] [facility] [address] [id number] [place] [address]- 7439 October, [facility] [address] [id number] [place] [address]- 4091 October, [facility] [address] [id number] [place] [address]- 6156 October, [facility] [address] [id number] [place] [address]- 3146 October, [facility] [address] [id number] [place] [address]- 3404 October, [facility] [address] [id number] [place] [address]- 2201 October, [facility] [address] [id number] [place] [address]- 7460 October, [facility] [address] [id number] [place] [address]- 7876 October, [facility] [address] [id number] [place] [address]- 6062 Sep, [facility] [address] [id number] [place] [address]- 7228 Sep, [facility] [address] [id number] [place] [address]- 4179 Aug, [facility] [place] [facility] [address] [id number] [place] [address]- 1990 Aug, [facility] [place] [facility] [address] [id number] [place] [address]- 4172 Aug, [facility] [place] [facility] [address] [id number] [place] [address]- 6577 Aug, [facility] [place] [facility] [address] [id number] [place] [address]- 8966 Aug, [facility] [place] [facility] [address] [id number] [place] [address]- 2257 Aug, [facility] [address] [id number] [place] [address]- 1736 Aug, [facility] [place] [facility] [address] [id number] [place] [address]- 4110 Aug, [facility] [place] [facility] [address] [id number] [place] [address]- 9405 Aug, [facility] [place] [facility] [address] [id number] [place] [address]- 7047 Aug, [facility] [place] [facility] [address] [id number] [place] [address]- 9738 Aug, [facility] [place] [facility] [address] [id number] [place] [address]- 9454 Aug, [facility] [place] [facility] [address] [id number] [place] [address]- 5648 Jul, [facility] [place] [facility] [address] [id number] [place] [address]- 8927 Jul, [facility] [place] [facility] [address] [id number] [place] [address]- 8781 Jul, [facility] [place] [facility] [address] [id number] [place] [address]- 6947 Jul, [facility] [place] [facility] [address] [id number] [address]- 6916 Mar, [facility] [place] [facility] [address] [id number] [place] [address]- 6574 Mar, [facility] [place] [facility] [address] [id number] [place] [address]- 5823 Jan, [facility] [place] [facility] [address] [id number] [place] [address]- 7895 Sep, [facility] [place] [facility] [address] [id number] [place] [address]- 8680 Aug, [facility] [place] [facility] [address] [id number] [place] [address]- 4416 12 Aug, 2012 [facility] [address] [id number] [place] [address]- 6096 08 Aug, 2012 [facility] [address] [id number] [place] [address] 2546 07 Aug, 2012 [facility] [address] [id number] [place] [address]- 2566 05 Aug, 2012 [facility] [address] [id number] [place] [address]- 8688 October, [facility] [address] [id number] [place] [address]- 9781 October, [facility] [address] [id number] [place] [address]- 7996 Sep, [facility] [address] [id number] [place] [address]- 4536 Sep, [facility] [address] [id number] [place] [address]- 4394 Sep, [facility] [address] [id number] [place] [address]- 6219 Sep, [facility] [address] [id number] [place] [address]- 8459 18 Sep, 2011 [facility] [address] [id number] [place] [address] 2549 11 Sep, 2011 [facility] [address] [id number] [place] [address]- 2545 10 Sep, 2011 [facility] [place] [facility] [address] [id number] [place] [address]- 8550 09 Sep, 2011 [facility] [address] [id number] [place] [address]- 2546 07 Sep, 2011 [facility] [address] [id number] [place] [address]- 2540 Sep, [facility] [place] [id number] [address]- 1996 Aug, [facility] [place] [address] [address]- 2006 Aug, [facility] [place] [address] [address]- 0285 Aug, [facility] [place] [address] [address]- 6933 Aug, [facility] [place] [address] 4468 Jul, [facility] [place] [address] 2268 Jul, [facility] [place] [address] [address]- 4718 Jul, [facility], [place] [id number] [address] May, [facility], [place] [id number] [address] May, [facility], [place] [id number] [address] May, [facility], [place] [id number] [address] Jan, [facility], [place] [id number] [address] Dec, IMMUNIZATIONS No Known Immunizations SOCIAL HISTORY Never Assessed REASON FOR VISIT DM ed attempt PLAN OF CARE VITAL SIGNS MEDICATIONS Unknown [...]
--- OUTSIDE RECORDS SUMMARY | 2018-06-15 19:16 | XMS REPORT ---
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 61559990 Problem Vitamin D deficiency E55.9 Active 51819998 Problem Heartburn R12 Active 65933131 Problem Idiopathic neuropathy G60.9 Active 086335817 Problem Chronic seasonal allergic rhinitis, unspecified trigger J30.2 Active 902205095 Problem Pre-diabetes R73.03 Active 015242578 Problem Other chronic pain G89.29 Active 17570009 Problem No diagnosis or condition on [place] I Z03.89 Active 0443700 Problem Insomnia due to medical condition G47.01 Active 804245365 ALLERGIES No Information ENCOUNTERS Encounter Location Date Diagnosis [place] [id number] [place] [address] 73945- 1594 October, [place] [id number] [place] [id number] [place] [address] 76790- 6058 Sep, BMI 50.0-59.9, adult Z68.43 ; Fibromyalgia M79.7 ; Idiopathic neuropathy G60.9 ; Vitamin D deficiency E55.9 ; Chronic seasonal allergic rhinitis, unspecified trigger J30.2 and Long-term use of high-risk medication Z79.899 [place] [address] [place] [id number] [address] 4552 Aug, Fibromyalgia M79.7 [place] [address] [place] [id number] [place] [address] 36719- 8090 Aug, No diagnosis or condition on [place] I Z03.89 [place] [address] 53459- 1589 Aug, Chronic seasonal allergic rhinitis, unspecified trigger J30.2 ; Fibromyalgia M79.7 ; Heartburn R12 ; Pre-diabetes R73.03 ; Change of voice R49.9 and BMI 50.0-59.9, adult Z68.43 [place] [address] [place] [id number] [place] [address] 56775- 8992 Aug, Fibromyalgia M79.7 [place] [address] 30129- 0178 May, Chronic seasonal allergic rhinitis, unspecified trigger J30.2 ; Vaginal itching L29.8 and Vaginal yeast infection B37.3 [place] [address] [place] [id number] [place] [address] 86190- 7886 May, Arthritis of both knees M19.90 [facility] [address] [place] [id number] [place] [address] 84676 -4350 May, Herpes zoster without complication B02.9 and Vaginal penny B37.3 [place] [address] [place] [id number] [place] [address] 99482- 2868 Mar, [place] [address] [place] [id number] [place] [address] 79426- 8417 Mar, Arthritis of both knees M19.90 [place] [address] [id number] [place] [address] 98025- 4223 Mar, Arthritis of both knees M19.90 ; Elevated serum creatinine R79.89 ; Fibromyalgia M79.7 ; Idiopathic neuropathy G60.9 ; Vitamin D deficiency E55.9 ; Pre-diabetes R73.03 and Insomnia due to medical condition G47.01 [place] [address] 09884- 2369 Mar, [place] [address] [place] [id number] [place] [address] 62665- 9792 Jan, [place] [address] 74926- 6100 Jan, Pes planus of left foot M21.42 ; Plantar fasciitis of left foot M72.2 and Neuropathy G62.9 [place] [address] 71481- 0512 Jan, Arthritis of both knees M19.90 ; Fibromyalgia M79.7 ; Idiopathic neuropathy G60.9 ; Vitamin D deficiency E55.9 ; Pre-diabetes R73.03 ; Insomnia due to medical condition G47.01 ; Bad odor of urine R82.90 and SI ( sacroiliac) pain M53.3 [place] [address] [place] [id number] [place] [address] 05474- 0304 Jan, [place] [address] [id number] [place] [address] 36423- 5785 Jan, Elevated serum creatinine R79.89 [place] [address] [place] [id number] [place] [address] 63120- 3578 Dec, [place] [address] [place] [id number] [place] [address] 32923- 2946 Dec, Arthritis of both knees M19.90 ; Fibromyalgia M79.7 ; Idiopathic neuropathy G60.9 ; Vitamin D deficiency E55.9 and Pre-diabetes R73.03 [place] [address] [place] [id number] [place] [address] 00579- 7323 Dec, Arthritis of both knees M19.90 [place] [address] [place] [id number] [place] [address] 05888- 2943 October, [place] [id number] [place] [address] 28428- 4698 October, [place] [address] [id number] [place] [address] 15498- 9559 October, Fibromyalgia M79.7 [facility] [id number] [place] [address] 95801- 1609 October, Skin tag L91.8 ; Left foot pain M79.672 and Rash and nonspecific skin eruption R21 [place] [address] [id number] [place] [address] 43173- 1681 Aug, [facility] [address] 73655- 7202 Aug, Arthritis of both knees M19.90 ; Fibromyalgia M79.7 ; Idiopathic neuropathy G60.9 ; Vitamin D deficiency E55.9 ; Morbid obesity due to excess calories E66.01 and History of prediabetes Z87.898 [facility] [id number] [place] [address] 35272 -4503 Aug, Blood in ear canal, right H92.21 [place] [address] 81535- 2239 Jul, [place] [address] 41641- 5062 Jul, Arthritis of both knees M19.90 ; Fibromyalgia M79.7 ; Idiopathic neuropathy G60.9 and Vitamin D deficiency E55.9 [place] [address] [place] [id number] [place] [address] 68739- 7420 Jul, Fibromyalgia M79.7 [place] [address] [place] [id number] [place] [address] 58309- 4031 May, Fibromyalgia M79.7 ; Idiopathic neuropathy G60.9 ; Vitamin D deficiency E55.9 ; Memory change R41.3 ; Xerostomia K11.7 and Heartburn R12 [place] [address] 71245- 2169 May, Fibromyalgia M79.7 ; Idiopathic neuropathy G60.9 ; Vitamin D deficiency E55.9 and Memory change R41.3 [place] [address] [place] [id number] [place] [address] 67701- 4818 May, [facility] [address], [place] [address]- 6575 Mar, [facility] [address] [id number] [place] [address] 39442- 7253 Jan, [facility] [id number] [place] [address] 33647- 3715 Jan, [facility] [id number] [place] [address] 88872- 7291 Jan, Dermatitis L30.9 ; Pain in right shoulder M25.511 ; Fibromyalgia M79.7 and H/O right knee surgery Z98.89 [facility] [id number] [place] [address] 09845- 3705 Dec, [facility] [address] [place] [id number] [place] [address] 63194- 4975 Dec, Middle ear effusion, right H65.91 ; Fibromyalgia M79.7 and Heartburn R12 [facility] [address] [place] [address] 85224 -7365 Dec, Otalgia of right ear H92.01 and Middle ear effusion, right H65.91 [facility] [address] [place] [address] 84765- 4772 Nov, Acute pain of right knee M25.561 [facility] [address] [place] [address] 57125- 9541 Nov, [facility] [address] [id number] [place] [address] 83107- 5000 Nov, Acute pain of right knee M25.561 [facility] [id number] [place] [address] 88251- 2709 October, Osteoarthritis of both knees, unspecified osteoarthritis type M17.0 [facility] [address] [place] [address] 50616- 7591 October, [place] [address] [place] [id number] [place] [address] 87246- 9658 Sep, [place] [address] [place] [id number] [place] [address] 94586- 3321 Sep, Fibromyalgia M79.7 ; Chronic fatigue R53.82 ; Sinusitis J32.9 ; Bronchiolitis J21.9 ; Weight gain R63.5 and Heartburn R12 [place] [address] 21891- 6150 Sep, Mild hearing loss of right ear H91.91 and Tinnitus of right ear H93.11 [place] [address] 75601- 8512 Aug, [place] [address] 11354- 0989 Aug, [place] [address] 02792- 7496 Aug, Fibromyalgia M79.7 and Depression F32.9 [place] [address] [place] [id number] [place] [address] 17526- 0055 Aug, [place] [address] [place] [id number] [place] [address] 01183- 3544 Jul, Fibromyalgia M79.7 ; 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 ; Vitamin D deficiency E55.9 ; Long-term use of high-risk medication Z79.899 ; Heartburn R12 ; Chronic fatigue, unspecified R53.82 and Tinnitus of right ear H93.11 [place] [address] [place] [address] 26317- 8198 Mar, Fibromyalgia M79.7 ; 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 ; Vitamin D deficiency E55.9 ; Diarrhea R19.7 ; Long-term use of high- risk medication Z79.899 and Heartburn R12 [place] [address] [place] [id number] [place] [address] 70561- 5079 Mar, Fibromyalgia 729.1 ; Unspecified hereditary and idiopathic peripheral neuropathy 356.9 ; Unspecified sleep disturbance 780.50 ; Left ankle pain 719.47 and Insomnia 780.52 [facility] [id number] [place] [address] 659147- 8143 22 Mar, 2015 Unspecified episodic mood disorder 296.90 and Anxiety state , unspecified 300.00 [facility] [id number] [place] [address] 05637- 2997 Mar, Chondromalacia of right knee 717.7 [facility] [id number] [place] [address] 86717- 3652 Jan, [facility] [id number] [place] [address] 97936- 1554 Dec, Left foot pain 729.5 [facility] [address] [id number] [place] [address] 97061- 7318 14 Sep, 2014 [facility] [address] [id number] [place] [address] 11962- 2701 Sep, [facility] [id number] [place] [address] 96887- 1074 17 Aug, 2014 [facility] [id number] [place] [address] 52408- 4083 17 Aug, 2014 [facility] [address] [address]- 8219 16 Aug, 2014 [facility] [id number] [place] [address] 12395- 2027 16 Aug, 2014 [facility] [address] [id number] [address]- 9280 11 Aug, 2014 [facility] [id number] [place] [address] 63397174- 6845 Aug, [facility] [address] 1181 Aug, [facility] [address] [place] [id number] [place] [address] [place] [address]- 8752 Aug, [facility] [place] [facility] [address] [id number] [place] [address]- 9759 Aug, [facility] [place] [facility] [address] [id number] [place] [address]- 6594 10 Aug, 2014 [facility] [place] [facility] [address] [id number] [place] [address]- 6648 05 Aug, 2014 [facility] [place] [facility] [address] [id number] [place] [address]- 9623 05 Aug, 2014 [facility] [place] [facility] [address] [id number] [place] [address]- 5175 Aug, [facility] [place] [facility] [address] [id number] [place] [address]- 1783 Aug, [facility] [place] [facility] [address] [id number] [place] [address]- 8651 Aug, [facility] [place] [facility] [address] [id number] [place] [address]- 4592 Aug, [facility] [place] [facility] [address] [id number] [place] [address]- 2074 Jul, [facility] [place] [facility] [address] [facility] [id number] [place] [address]- 5006 Jul, [facility] [place] [facility] [address] [id number] [place] [address]- 4335 Jul, [facility] [place] [facility] [address] [id number] [address]- 4056 Jul, [facility] [place] [facility] [address] [id number] [place] [address]- 1187 May, [facility] [place] [facility] [address] [id number] [place] [address]- 9141 May, [facility] [place] [facility] [address] [id number] [place] [address]- 5535 May, [facility] [place] [facility] [address] [id number] [place] [address]- 1872 Mar, [facility] [place] [facility] [address] [id number] [place] [address]- 6856 Mar, [facility] [place] [facility] [address] [id number] [place] [address]- 3548 Mar, [facility] [place] [facility] [address] [id number] [place] [address]- 2378 Mar, [facility] [place] [facility] [address] [id number] [place] [address]- 9454 Dec, [facility] [place] [facility] [address] [id number] [place] [address]- 8553 Dec, [facility] [place] [facility] [address] [id number] [place] [address]- 8122 Nov, [facility] [place] [facility] [address] [id number] [place] [address]- 6144 Nov, [facility] [place] [facility] [address] [id number] [place] [address]- 6692 Nov, [facility] [place] [facility] [address] [id number] [place] [address]- 2251 Nov, [facility] [place] [facility] [address] [id number] [place] [address]- 5012 Nov, [facility] [place] [facility] [address] [id number] [place] [address]- 5302 Nov, [facility] [place] [facility] [address] [id number] [place] [address]- 7863 October, [facility] [place] [facility] [address] [id number] [place] [address]- 7207 October, [facility] [place] [facility] [address] [id number] [place] [address]- 2419 October, [facility] [place] [facility] [address] [id number] [place] [address]- 8438 October, [facility] [place] [facility] [address] [id number] [place] [address]- 2051 October, [facility] [place] [facility] [address] [id number] [place] [address]- 4298 October, [facility] [place] [facility] [address] [id number] [place] [address]- 9568 October, [facility] [place] [facility] [address] [id number] [place] [address]- 2324 October, [facility] [place] [facility] [address] [id number] [place] [address]- 9896 October, [facility] [place] [facility] [address] [id number] [place] [address]- 1083 October, [facility] [place] [facility] [address] [id number] [place] [address]- 1546 October, [facility] [place] [facility] [address] [id number] [place] [address]- 9599 October, [facility] [place] [facility] [address] [id number] [place] [address]- 6197 October, [facility] [place] [facility] [address] [id number] [place] [address]- 4690 Sep, [facility] [place] [facility] [address] [id number] [place] [address]- 2964 Sep, [facility] [place] [facility] [address] [id number] [place] [address]- 3686 Aug, [facility] [place] [facility] [address] [id number] [place] [address]- 1524 Aug, [facility] [place] [facility] [address] [id number] [place] [address]- 2606 Aug, [facility] [place] [facility] [address] [id number] [place] [address]- 2340 Aug, [facility] [place] [facility] [address] [id number] [place] [address]- 8082 Aug, [facility] [place] [facility] [address] [id number] [place] [address]- 9793 Aug, [facility] [place] [facility] [address] [id number] [place] [address]- 7830 Aug, [facility] [place] [facility] [address] [id number] [place] [address]- 1537 Aug, [facility] [place] [facility] [address] [id number] [place] [address]- 4744 Aug, [facility] [place] [facility] [address] [id number] [place] [address]- 5890 Aug, [facility] [place] [facility] [address] [id number] [place] [address]- 6351 Aug, [facility] [place] [facility] [address] [id number] [place] [address]- 2988 Aug, [facility] [place] [facility] [address] [id number] [place] [address]- 9252 Jul, [facility] [place] [facility] [address] [id number] [place] [address]- 4238 Jul, [facility] [place] [facility] [address] [facility] [id number] [place] [address]- 1077 Jul, [facility] [place] [facility] [address] [id number] [place] [address]- 9571 Jul, [facility] [place] [facility] [address] [id number] [place] [address]- 4086 Mar, [facility] [place] [facility] [address] [id number] [place] [address]- 0639 Mar, [facility] [place] [facility] [address] [id number] [place] [address]- 3175 Jan, [facility] [place] [facility] [address] [id number] [place] [address]- 7921 Sep, [facility] [address] [id number] [place] [address]- 9444 14 Aug, 2012 [facility] [address] [id number] [place] [address]- 2506 12 Aug, 2012 [facility] [address] [id number] [place] [address]- 3496 08 Aug, 2012 [facility] [address] [id number] [place] [address]- 6633 07 Aug, 2012 [facility] [address] [id number] [place] [address]- 8222 05 Aug, 2012 [facility] [address] [id number] [place] [address]- 0532 October, [facility] [address] [id number] [place] [address]- 7226 October, [facility] [address] [id number] [place] [address]- 6688 27 Sep, 2011 [facility] [address] [id number] [place] [address]- 9995 Sep, [facility] [place] [facility] [address] [id number] [place] [address]- 7154 25 Sep, 2011 [facility] [address] [id number] [place] [address]- 0243 19 Sep, 2011 [facility] [place] [facility] [address] [id number] [place] [address]- 4467 18 Sep, 2011 [facility] [place] [facility] [address] [id number] [place] [address]- 3519 11 Sep, 2011 [facility] [place] [facility] [address] [id number] [place] [address]- 1779 10 Sep, 2011 [facility] [place] [facility] [address] [id number] [place] [address]- 8034 09 Sep, 2011 [facility] [place] [facility] [address], [place] [address]- 5376 Sep, [facility] [address], [place] [address]- 5336 Sep, [facility] [address] [place] [address] 2546 Aug, [facility] [address], [place] [address]- 0536 17 Aug, 2011 [facility] [address] [place] [address]- 1316 Aug, [facility] [id number] [place] [address] 88606- 6196 Aug, [facility] [address], [place] [address]- 0706 Jul, [facility] [id number] [place] [address] 56389- 7024 Jul, [facility] [address], [place] [address]- 4313 Jul, [facility] [address], [place] [address] May, [facility] [id number] [place] [address] May, [facility] [id number] [place] [address] May, [facility] [id number] [place] [address] Jan, [facility] [id number] [place] [address] Dec, IMMUNIZATIONS No Known Immunizations SOCIAL HISTORY [...]
--- OUTSIDE RECORDS SUMMARY | 2018-06-15 19:16 | XMS REPORT ---
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 19798197 Problem Vitamin D deficiency E55.9 Active 13920033 Problem Heartburn R12 Active 34601566 Problem Idiopathic neuropathy G60.9 Active 027906667 Problem Chronic seasonal allergic rhinitis, unspecified trigger J30.2 Active 774082639 Problem Pre-diabetes R73.03 Active 704437469 Problem Other chronic pain G89.29 Active 43929931 Problem No diagnosis or condition on Salome I Z03.89 Active 5709155 Problem Insomnia due to medical condition G47.01 Active 142408401 ALLERGIES Substance Reaction Event Type Date Status Neurontin Unknown Drug Allergy Jan, Active Lyrica Nausea, diarrhea, headaches Drug Allergy Jan, Active Effexor Unknown Drug Allergy Jan, Active Cymbalta 30 Mg Capsule, Delayed Release(e.c.) Unknown Non Drug Allergy Jan, Active ENCOUNTERS Encounter Location Date Diagnosis [facility] [address] [facility] [id number] [address] October, [facility] [address] [facility] [id number], [place] [address] Sep, BMI 50.0-59.9, adult Z68.43 ; Fibromyalgia M79.7 ; Idiopathic neuropathy G60.9 ; Vitamin D deficiency E55.9 ; Chronic seasonal allergic rhinitis, unspecified trigger J30.2 and Long-term use of high-risk medication Z79.899 [place] [address] [address] Aug, Fibromyalgia M79.7 [place] [address] 9[address]- 5123 Aug, No diagnosis or condition on Salome I Z03.89 [place] [address] 0[address]- 1461 Aug, Chronic seasonal allergic rhinitis, unspecified trigger J30.2 ; Fibromyalgia M79.7 ; Heartburn R12 ; Pre-diabetes R73.03 ; Change of voice R49.9 and BMI 50.0-59.9, adult Z68.43 [place] [address] [address]- 6[address] Aug, Fibromyalgia M79.7 [place] [address] 26[address]- 8323 May, Chronic seasonal allergic rhinitis, unspecified trigger J30.2 ; Vaginal itching L29.8 and Vaginal yeast infection B37.3 [place] [address] [address]66- 7448 May, Arthritis of both knees M19.90 [facility] [address] [place] [id number] [place] [address] -[address]192 May, Herpes zoster without complication B02.9 and Vaginal penny B37.3 [facility] [address] [address]- 79[address] Mar, [place] [address] [address]- 385[address] Mar, Arthritis of both knees M19.90 [place] [address] [address]- 1916 Mar, Arthritis of both knees M19.90 ; Elevated serum creatinine R79.89 ; Fibromyalgia M79.7 ; Idiopathic neuropathy G60.9 ; Vitamin D deficiency E55.9 ; Pre-diabetes R73.03 and Insomnia due to medical condition G47.01 [place] [address] [place] [id number] [place] [address] 84913- 8085 Mar, [place] [address] [place] [id number] [place] [address] 14775- 5617 Jan, [place] [address] [address]199- 6988 Jan, Pes planus of left foot M21.42 ; Plantar fasciitis of left foot M72.2 and Neuropathy G62.9 [place] [address] 20586- 2624 Jan, Arthritis of both knees M19.90 ; Fibromyalgia M79.7 ; Idiopathic neuropathy G60.9 ; Vitamin D deficiency E55.9 ; Pre-diabetes R73.03 ; Insomnia due to medical condition G47.01 ; Bad odor of urine R82.90 and SI ( sacroiliac) pain M53.3 [place] [address] [place] [id number] [place] [address] 84478- 9879 Jan, [place] [address] [place] [id number] [place] [address] 15814- 3248 Jan, Elevated serum creatinine R79.89 [place] [address] [place] [id number] [place] [address] 86797- 0853 Dec, [place] [address] [place] [id number] [place] [address] 58801- 8239 Dec, Arthritis of both knees M19.90 ; Fibromyalgia M79.7 ; Idiopathic neuropathy G60.9 ; Vitamin D deficiency E55.9 and Pre-diabetes R73.03 [place] [address] [place] [id number] [place] [address] 44270- 8269 Dec, Arthritis of both knees M19.90 [place] [address] [place] [id number] [place] [address] 10579- 1487 October, [place] [address] [place] [id number] [place] [address] 34134- 3142 October, [facility] [address] [address]- 97[address] October, Fibromyalgia M79.7 [place] [address] 55345- 1054 October, Skin tag L91.8 ; Left foot pain M79.672 and Rash and nonspecific skin eruption R21 [place] [address] [place] [id number] [place] [address] 21114- 2374 Aug, [place] [address] 11044- 6265 Aug, Arthritis of both knees M19.90 ; Fibromyalgia M79.7 ; Idiopathic neuropathy G60.9 ; Vitamin D deficiency E55.9 ; Morbid obesity due to excess calories E66.01 and History of prediabetes Z87.898 [facility] [address] [place] [id number] [place] [address]28 -7327 Aug, Blood in ear canal, right H92.21 [place] [address] [place] [id number] [place] [address] 80049- 2565 Jul, [place] [address] [place] [id number] [place] [address] 06992- 8757 Jul, Arthritis of both knees M19.90 ; Fibromyalgia M79.7 ; Idiopathic neuropathy G60.9 and Vitamin D deficiency E55.9 [place] [address] [place] [id number] [place] [address] 82579- 3995 Jul, Fibromyalgia M79.7 [place] [address] 90682- 1328 May, Fibromyalgia M79.7 ; Idiopathic neuropathy G60.9 ; Vitamin D deficiency E55.9 ; Memory change R41.3 ; Xerostomia K11.7 and Heartburn R12 [address] [place] [address] 6679 May, Fibromyalgia M79.7 ; Idiopathic neuropathy G60.9 ; Vitamin D deficiency E55.9 and Memory change R41.3 [facility] [address] [place] [id number] [place] [address] 73155- 1548 May, [facility] [address] 79376- 6071 Mar, [facility] [address] 56627- 8789 Jan, [facility] [address] [address]164- 1978 Jan, [place] [address] 6[address]80- 4934 Jan, Dermatitis L30.9 ; Pain in right shoulder M25.511 ; Fibromyalgia M79.7 and H/O right knee surgery Z98.89 [facility] [address] 96400- 1265 Dec, [facility] [address] 28649- 2178 Dec, Middle ear effusion, right H65.91 ; Fibromyalgia M79.7 and Heartburn R12 [facility] [address] [place] [id number] [place] [address] 12939 -8637 Dec, Otalgia of right ear H92.01 and Middle ear effusion, right H65.91 [facility] [address] [place] [id number] [place] [address] 74693- 8008 Nov, Acute pain of right knee M25.561 [facility] [address] 25337- 5804 Nov, [facility] [address] [place] [id number] [place] [address] 75269- 1060 07 Nov, 2015 Acute pain of right knee M25.561 [facility] [address] [place] [address]- 3636 October, Osteoarthritis of both knees, unspecified osteoarthritis type M17.0 [place] [address] 22793- 1196 October, [place] [address] [place] [id number] [place] [address] 50864- 5449 Sep, [place] [address] 77626- 1359 Sep, Fibromyalgia M79.7 ; Chronic fatigue R53.82 ; Sinusitis J32.9 ; Bronchiolitis J21.9 ; Weight gain R63.5 and Heartburn R12 [place] [id number] [place] [address] 94261- 1874 Sep, Mild hearing loss of right ear H91.91 and Tinnitus of right ear H93.11 [place] [address] [place] [id number] [place] [address] 20756- 1457 Aug, [place] [address] [place] [id number] [place] [address] 22756- 3486 Aug, [place] [address] [place] [id number] [place] [address] 50976- 5085 Aug, Fibromyalgia M79.7 and Depression F32.9 [place] [address] [place] [id number] [place] [address] 02842- 1516 Aug, [place] [address] [place] [id number] [place] [address] 10686- 2249 Jul, Fibromyalgia M79.7 ; 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 ; Vitamin D deficiency E55.9 ; Long-term use of high-risk medication Z79.899 ; Heartburn R12 ; Chronic fatigue, unspecified R53.82 and Tinnitus of right ear H93.11 [place] [address] [place] [id number] [place] [address] 22413- 7063 Mar, Fibromyalgia M79.7 ; 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 ; Vitamin D deficiency E55.9 ; Diarrhea R19.7 ; Long-term use of high- risk medication Z79.899 and Heartburn R12 [facility] [address] [place] [id number] [place] [address] 10183- 4706 Mar, Fibromyalgia 729.1 ; Unspecified hereditary and idiopathic peripheral neuropathy 356.9 ; Unspecified sleep disturbance 780.50 ; Left ankle pain 719.47 and Insomnia 780.52 [facility] [address] 68615- 0309 Mar, Unspecified episodic mood disorder 296.90 and Anxiety state , unspecified 300.00 [facility] [address] 65803- 1700 Mar, Chondromalacia of right knee 717.7 [facility] [address] 05788- 9825 Jan, [facility] [address] 66906- 8836 Dec, Left foot pain 729.5 [facility] [address] [place] [id number] [place] [address] 78620- 2097 Sep, [facility] [address] [place] [id number] [place] [address] 29502- 1527 Sep, [facility] [address] [place] [id number] [place] [address] 42976- 9840 Aug, [facility] [address] [place] [id number] [place] [address] 41343- 0853 17 Aug, 2014 [facility] [address] [place] [id number] [place] [address] 85851- 1783 16 Aug, 2014 [facility] [address] [id number]- 0147 16 Aug, 2014 [facility] [address] [place] [id number] [place] [address] 04930076- 0451 Aug, [facility] [address] [place] [address]- 3636 11 Aug, 2014 [facility] [place] [facility] [address] [id number] [place] [address]- 4109 Aug, [facility] [place] [facility] [address] [id number] [place] [address]- 4464 Aug, [facility] [place] [facility] [address] [id number] [place] [address]- 2714 Aug, [facility] [place] [facility] [address] [id number] [place] [address]- 9886 Aug, [facility] [place] [facility] [address] [id number] [place] [address]- 2829 Aug, [facility] [place] [facility] [address] [id number] [place] [address]- 8698 Aug, [facility] [place] [facility] [address] [id number] [place] [address]- 2762 Aug, [facility] [place] [facility] [address] [id number] [place] [address]- 9401 Aug, [facility] [place] [facility] [address] [id number] [place] [address]- 3624 Aug, [facility] [place] [facility] [address] [facility] [id number] [place] [address]- 7143 Aug, [facility] [place] [facility] [address] [facility] [id number] [place] [address]- 5827 Jul, [facility] [place] [facility] [address] [id number] [place] [address]- 0608 Jul, [facility] [place] [facility] [address] [id number] [place] [address]- 1112 Jul, [facility] [place] [facility] [address] [facility] [id number] [place] [address]- 0009 Jul, [facility] [place] [facility] [address] [facility] [id number] [place] [address]- 6869 May, [facility] [place] [facility] [address] [id number] [place] 8133 May, [facility] [place] [facility] [address] [id number] [place] [address]- 1341 May, [facility] [place] [facility] [address] [id number] [place] [address]- 4039 Mar, [facility] [place] [facility] [address] [id number] [place] [address]- 5532 Mar, [facility] [place] [facility] [address] [id number] [place] [address]- 3572 Mar, [facility] [place] [facility] [address] [id number] [place] [address]- 5968 Mar, [facility] [place] [facility] [address] [id number] [place] [address]- 4019 Dec, [facility] [place] [facility] [address] [id number] [place] [address]- 2869 Dec, [facility] [place] [facility] [address] [id number] [place] [address]- 5458 Nov, [facility] [place] [facility] [address] [id number] [place] [address]- 6504 Nov, [facility] [place] [facility] [address] [id number] [place] [address]- 4762 Nov, [facility] [place] [facility] [address] [id number], [place] [address]- 1249 Nov, [facility] [place] [facility] [address] [id number] [place] [address]- 8432 Nov, [facility] [place] [facility] [address] [id number] [place] 1136 Nov, [facility] [place] [facility] [address] [id number] [place] [address]- 0510 October, [facility] [place] [facility] [address] [id number] [place] [address]- 8337 October, [facility] [address] [id number] [place] [address]- 1387 October, [facility] [place] [facility] [address] [id number] [place] [address]- 0001 October, [facility] [place] [facility] [address] [id number] [place] [address]- 1219 October, [facility] [place] [facility] [address] [id number] [place] [address]- 7775 October, [facility] [place] [facility] [address] [id number] [place] [address]- 4384 October, [facility] [place] [facility] [address] [id number] [place] [address]- 3216 October, [facility] [place] [facility] [address] [id number] [place] [address]- 1375 October, [facility] [place] [facility] [address] [id number] [place] [address]- 2620 October, [facility] [place] [facility] [address] [id number] [place] [address]- 4821 October, [facility] [place] [facility] [address] [id number] [place] [address]- 8582 October, [facility] [place] [facility] [address] [id number] [place] [address]- 6682 October, [facility] [place] [facility] [address] [id number] [place] [address]- 7970 Sep, [facility] [place] [facility] [address] [id number] [place] [address]- 8321 Sep, [facility] [place] [facility] [address] [id number] [place] [address]- 4062 Aug, [facility] [place] [facility] [address] [id number] [place] 2188 Aug, [facility] [place] [facility] [address] [id number] [place] [address]- 4775 Aug, [facility] [place] [facility] [address] [id number] [place] [address]- 5178 Aug, [facility] [place] [facility] [address] [id number] [place] [address]- 0635 Aug, [facility] [place] [facility] [address] [id number] [place] [address]- 0787 Aug, [facility] [place] [facility] [address] [id number] [place] [address]- 6307 Aug, [facility] [place] [facility] [address] [id number] [place] [address]- 4315 Aug, [facility] [place] [facility] [address] [id number] [place] [address]- 0153 Aug, [facility] [place] [facility] [address] [id number] [place] [address]- 1665 Aug, [facility] [place] [facility] [address] [id number] [place] [address]- 9503 Aug, [facility] [place] [facility] [address] [id number] [place] [address]- 3003 Aug, [facility] [place] [facility] [address] [id number] [place] [address]- 6009 Jul, [facility] [place] [facility] [address] [id number] [place] [address]- 5653 Jul, [facility] [place] [facility] [address] [id number] [place] [address]- 8124 Jul, [facility] [place] [facility] [address] [id number] [place] [address]- 7538 Jul, [facility] [place] [facility] [address] [id number] [place] [address]- 5455 Mar, [facility] [place] [facility] [address] [id number] [place] [address]- 4945 Mar, [facility] [address] [id number] [place] [address]- 0174 Jan, [facility] [address] [id number] [place] [address]- 4844 Sep, [facility] [address] [id number] [place] [address]- 5556 14 Aug, 2012 [facility] [place] [facility] [address] [id number] [place] [address]- 9551 Aug, [facility] [address] [id number] [place] [address]- 8800 08 Aug, 2012 [facility] [address] [id number] [place] [address]- 3459 Aug, [facility] [address] [facility] [id number] [place] [address]- 9384 Aug, [facility] [facility] [address] [id number] [place] [address]- 0910 October, [facility] [address] [facility] [id number] [place] [address]- 9051 October, [facility] [address] [facility] [id number] [place] [address]- 4483 27 Sep, 2011 [facility] [address] [id number] [place] [address]- 9833 26 Sep, 2011 [facility] [place] [facility] [address] [id number] [place] [address]- 1478 25 Sep, 2011 [facility] [place] [facility] [address] [id number] [place] [address]- 2651 19 Sep, 2011 [facility] [place] [facility] [address] [facility] [id number] [place] [address]- 6806 18 Sep, 2011 [facility] [place] [facility] [address] [facility] [id number] [place] [address]- 4433 11 Sep, 2011 [facility] [place] [facility] [address] [id number] [place] [address]- 6202 10 Sep, 2011 [facility] [place] [facility] [address] [id number] [place] [address]- 1162 09 Sep, 2011 [facility] [place] [facility] [address] [id number] [place] [address]- 1616 07 Sep, 2011 [facility] [place] [facility] [address] [id number] [place] [address]- 6733 06 Sep, 2011 [facility] [place] [facility] [address] [id number] [place] [address]- 6108 Aug, [facility] [place] [facility] [address] [id number] [place] [address]- 3007 17 Aug, 2011 [facility] [place] [facility] [address] [id number] [place] [address]- 7893 13 Aug, 2011 [facility] [place] [facility] [address] [id number] [place] [address]- 7776 Aug, [facility] [place] [facility] [address] [id number] [place] [address]- 2972 Jul, [facility] [place] [facility] [address] [id number] [place] [address]- 7594 Jul, [facility] [place] [facility] [address] [id number] [place] [address]- 8843 Jul, [facility] [place] [facility] [address] [id number] [place] [address]- 8166 May, [facility] [place] [facility] [address] [id number] [place] [address]- 5815 May, [facility] [place] [facility] [address] [id number] [place] [address]- 4463 May, [facility] [place] [facility] [address] [id number] [place] [address]- 7416 Jan, [facility] [place] [facility] [address] [id number] [place] [address]- 1577 Dec, IMMUNIZATIONS No Known Immunizations SOCIAL HISTORY Never Assessed REASON FOR VISIT Pain management (chronic)---DBennettRN, concerns about kidneys, weight loss surgery PLAN OF CARE Activity Details Follow Up 4 weeks Reason:insomnia VITAL SIGNS Height 68 in 2017-02-20 Weight 330 lbs 2017-02-20 Temperature 98.2 degrees Fahrenheit 2017-02-20 Heart Rate 90 bpm 2017-02-20 Respiratory Rate 20 2017-02-20 BMI 50.17 kg/m2 2017-02-20 Blood pressure systolic 112 mmHg 2017-02-20 Blood pressure diastolic 80 mmHg 2017-02-20 MEDICATIONS Medication Instructions Dosage Frequency Start Date End Date Duration Status Cetirizine HCl 10 MG Orally Once a day 1 tablet 24h Active Omeprazole 40 MG Orally Once a day 1 capsule 24h Active Fluticasone Propionate 50 MCG/ACT Nasally Once a day 1 spray in each nostril 24h Sep, Active Trazodone HCl 100 mg Orally Once a day 1/2-1 tablet at bedtime 24h Dec Active Carbamazepine 200 MG Orally Twice a day 1 tablet 12h Active Wheelchair - xtra large Jul, Active Hydrocodone-Acetaminophen 7.5-325 MG Orally 2 times a day prn 1/2-1 tablet Dec, Jan, Active Cyclobenzaprine HCl 10 mg Orally Three times a day 1 tablet 8h 30 Active Vitamin D3 5000 UNIT Orally Once a day 1 tablet 24h 30 day(s) Active RESULTS Name Result Date Reference Range CULTURE, URINE 2017-02-20 Urine Culture, Routine Final report Result 1 No growth Xray : SI Joints 2017-03-25 PROCEDURES Procedure Date Ordered Result Body Site LAB NOT BILLED BY [facility] Feb 20, 2017 INSTRUCTIONS MEDICATIONS ADMINISTERED No Known [...]
--- OUTSIDE RECORDS SUMMARY | 2018-06-15 19:17 | XMS REPORT ---
Author Author MILIND CHU [facility] Address [address] [place] [address] Care Team Providers Care Part Time Receptionist Name Role Phone MILIND CHU Unavailable PROBLEMS Type Condition ICD9-CM Code BTA73-LE Code Onset Dates Condition Status SNOMED Code Problem Chronic fatigue R53.82 Active 67369250 Problem Idiopathic neuropathy G60.9 Active 10506743 Problem Systemic involvement of connective tissue, unspecified M35.9 Active 320772266 Problem No diagnosis or condition on [place] I Z03.89 Active 1974201 Problem Chronic seasonal allergic rhinitis, unspecified trigger J30.2 Active 845607739 Problem Arthritis of both knees M19.90 Active 092387222 Problem Other chronic pain G89.29 Active 63614084 Problem Insomnia due to medical condition G47.01 Active 962904026 Problem Pre-diabetes R73.03 Active 432548794 Problem History of anemia Z86.2 Active 414770324 Problem Vitamin D deficiency E55.9 Active 01222171 Problem Long-term use of high-risk medication Z79.899 Active 355715756 Problem Fibromyalgia M79.7 Active 53093846 Problem Heartburn R12 Active 74387682 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 81650013 Problem Depression F32.9 Active 97038139 ALLERGIES No Information ENCOUNTERS Encounter Location Date Diagnosis [facility] [id number] [address] Sep, [facility] [id number] [place] [address] 60482- 4877 Aug, Fibromyalgia M79.7 [facility] [address] [address] Aug, No diagnosis or condition on [place] I Z03.89 [facility] [address] [place] [address]- 8834 Aug, Chronic seasonal allergic rhinitis, unspecified trigger J30.2 ; Fibromyalgia M79.7 ; Heartburn R12 ; Pre-diabetes R73.03 ; Change of voice R49.9 and BMI 50.0-59.9, adult Z68.43 [place] [address] [address] Aug, Fibromyalgia M79.7 [place] [address] 9[address]85- 7193 May, Chronic seasonal allergic rhinitis, unspecified trigger J30.2 ; Vaginal itching L29.8 and Vaginal yeast infection B37.3 [place] [address] 9[address]- 6309 May, Arthritis of both knees M19.90 [facility] [address] [address] May, Herpes zoster without complication B02.9 and Vaginal penny B37.3 [place] [address] 9[address]- 7736 Mar, [place] [address] 61291- 6566 Mar, Arthritis of both knees M19.90 [place] [address] 99441- 8800 Mar, Arthritis of both knees M19.90 ; Elevated serum creatinine R79.89 ; Fibromyalgia M79.7 ; Idiopathic neuropathy G60.9 ; Vitamin D deficiency E55.9 ; Pre-diabetes R73.03 and Insomnia due to medical condition G47.01 [place] [address] 94138- 9053 Mar, [place] [address] 02571- 2538 Jan, [place] [address] 29254- 4618 Jan, Pes planus of left foot M21.42 ; Plantar fasciitis of left foot M72.2 and Neuropathy G62.9 [place] [id number] [place] [address] 94627- 2031 Jan, Arthritis of both knees M19.90 ; Fibromyalgia M79.7 ; Idiopathic neuropathy G60.9 ; Vitamin D deficiency E55.9 ; Pre-diabetes R73.03 ; Insomnia due to medical condition G47.01 ; Bad odor of urine R82.90 and SI ( sacroiliac) pain M53.3 [place] [id number] [place] [address] 92683- 2343 Jan, [place] [id number] [place] [address] 36152- 3297 Jan, Elevated serum creatinine R79.89 [place] [id number] [place] [address] 29016- 4456 Dec, [place] [id number] [place] [address] 01176- 7275 Dec, Arthritis of both knees M19.90 ; Fibromyalgia M79.7 ; Idiopathic neuropathy G60.9 ; Vitamin D deficiency E55.9 and Pre-diabetes R73.03 [place] [id number] [place] [address] 57076- 3142 Dec, Arthritis of both knees M19.90 [place] [id number] [place] [address] 04523- 9743 October, [place] [id number] [place] [address] 19428- 8779 October, [place] [id number] [place] [address] 87326- 8420 October, Fibromyalgia M79.7 [place] [id number] [place] [address] 80190- 1292 October, Skin tag L91.8 ; Left foot pain M79.672 and Rash and nonspecific skin eruption R21 [place] [id number] [place] [address] 20870- 2472 14 Aug, 2016 [place] [id number] [place] [address] 52971- 2732 09 Aug, 2016 Arthritis of both knees M19.90 ; Fibromyalgia M79.7 ; Idiopathic neuropathy G60.9 ; Vitamin D deficiency E55.9 ; Morbid obesity due to excess calories E66.01 and History of prediabetes Z87.898 [facility] [id number] [place] [address] 76155 -2237 Aug, Blood in ear canal, right H92.21 [place] [address] 57571- 4199 Jul, [place] [address] 25966- 2322 Jul, Arthritis of both knees M19.90 ; Fibromyalgia M79.7 ; Idiopathic neuropathy G60.9 and Vitamin D deficiency E55.9 [place] [id number] [place] [address] 86576- 3507 Jul, Fibromyalgia M79.7 [place] [id number] [place] [address] 59403- 7387 May, Fibromyalgia M79.7 ; Idiopathic neuropathy G60.9 ; Vitamin D deficiency E55.9 ; Memory change R41.3 ; Xerostomia K11.7 and Heartburn R12 [place] [id number] [place] [address] 17316- 4583 May, Fibromyalgia M79.7 ; Idiopathic neuropathy G60.9 ; Vitamin D deficiency E55.9 and Memory change R41.3 [place] [id number] [place] [address] 11095- 1934 May, [place] [id number] [place] [address] 41893- 5505 Mar, [place] [id number] [place] [address] 81374- 1776 Jan, [facility] [id number] [place] [address] 31939- 5300 Jan, [facility] [id number] [place] [address] 60103- 9721 Jan, Dermatitis L30.9 ; Pain in right shoulder M25.511 ; Fibromyalgia M79.7 and H/O right knee surgery Z98.89 [facility] [id number] [place] [address] 58335- 3283 Dec, [facility] [address] 55142- 6041 Dec, Middle ear effusion, right H65.91 ; Fibromyalgia M79.7 and Heartburn R12 [facility] [id number] [place] [address] 75809 -1558 Dec, Otalgia of right ear H92.01 and Middle ear effusion, right H65.91 [facility] [id number] [place] [address] 95915- 0582 Nov, Acute pain of right knee M25.561 [facility] [id number] [place] [address] 81533- 9695 Nov, [facility] [id number] [place] [address] 01001- 2258 Nov, Acute pain of right knee M25.561 [facility] [id number] [place] [address] 90119- 4401 October, Osteoarthritis of both knees, unspecified osteoarthritis type M17.0 [facility] [id number] [place] [address] 73222- 1476 October, [facility] [id number] [place] [address] 12176- 1574 Sep, [facility] [address] 12698- 6995 Sep, Fibromyalgia M79.7 ; Chronic fatigue R53.82 ; Sinusitis J32.9 ; Bronchiolitis J21.9 ; Weight gain R63.5 and Heartburn R12 [place] [id number] [place] [address] 94377- 5358 Sep, Mild hearing loss of right ear H91.91 and Tinnitus of right ear H93.11 [place] [id number] [place] [address] 12877- 7595 Aug, [place] [address] 77109- 7797 Aug, [address] 389[address]- 5675 Aug, Fibromyalgia M79.7 and Depression F32.[address] 05833- 2785 Aug, [place] [id number] [place] [address] 11507- 0784 Jul, Fibromyalgia M79.7 ; 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 ; Vitamin D deficiency E55.9 ; Long-term use of high-risk medication Z79.899 ; Heartburn R12 ; Chronic fatigue, unspecified R53.82 and Tinnitus of right ear H93.11 [address] [id number] [place] [address] 77014- 9796 Mar, Fibromyalgia M79.7 ; 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 ; Vitamin D deficiency E55.9 ; Diarrhea R19.7 ; Long-term use of high- risk medication Z79.899 and Heartburn R12 [place] [id number] [place] [address] 90010- 7940 Mar, Fibromyalgia 729.1 ; Unspecified hereditary and idiopathic peripheral neuropathy 356.9 ; Unspecified sleep disturbance 780.50 ; Left ankle pain 719.47 and Insomnia 780.[address] 74574- 4006 Mar, Unspecified episodic mood disorder 296.90 and Anxiety state , unspecified 300.00 [facility] [id number] [place] [address] 84542- 6165 Mar, Chondromalacia of right knee 717.7 [facility] [address], [place] [address]- 6442 Jan, [facility] [id number] [place] [address] 08842- 7483 Dec, Left foot pain 729.5 [facility] [id number] [place] [address] 54465- 5472 Sep, [facility] [id number] [place] [address] 820897- 0852 Sep, [facility] [id number] [place] [address] 75955- 4272 17 Aug, 2014 [facility] [address], [place] [address]- 3393 17 Aug, 2014 [facility] [id number] [address]- 1298 16 Aug, 2014 [facility] [address], [place] [address]- 2759 16 Aug, 2014 [facility] [address], [place] [address]- 8147 11 Aug, 2014 [facility] [address] [address]- 5048 11 Aug, 2014 [facility] [address] 2235 11 Aug, 2014 [facility] [address] 8585 11 Aug, 2014 [facility] [address] [address]- 1393 10 Aug, 2014 [facility] [place] [facility] [address] [id number] [place] [address]- 6495 Aug, 2014 [facility] [place] [facility] [address] [id number] [place] [address]- 1345 Aug, 2014 [facility] [place] [facility] [address] [id number] [place] [address]- 0308 Aug, 2014 [facility] [place] [facility] [address] [id number] [place] [address]- 3170 Aug, 2014 [facility] [place] [facility] [address] [id number] [place] [address]- 4143 Aug, 2014 [facility] [place] [facility] [address] [id number] [place] [address]- 0136 Aug, [facility] [place] [facility] [address] [facility] [id number] [place] [address]- 4299 Aug, [facility] [place] [facility] [address] [facility] [id number] [place] [address]- 6649 Jul, [facility] [place] [facility] [address] [facility] [id number] [place] [address]- 5806 Jul, [facility] [place] [facility] [address] [facility] [id number] [place] [address]- 2395 Jul, [facility] [place] [facility] [address] [facility] [id number] [place] [address]- 6554 Jul, [facility] [place] [facility] [address] [id number] [place] [address]- 6005 May, [facility] [place] [facility] [address] [id number] [place] [address]- 4472 May, [facility] [place] [facility] [address] [id number] [place] [address]- 2889 May, [facility] [place] [facility] [address] [id number] [place] [address]- 7162 Mar, [facility] [place] [facility] [address] [id number] [place] [address]- 8534 Mar, [facility] [place] [facility] [address] [id number] [place] [address]- 0473 Mar, [facility] [place] [facility] [address] [id number] [place] 1341 Mar, [facility] [place] [facility] [address] [id number] [place] [address]- 7172 Dec, [facility] [place] [facility] [address] [id number] [place] [address]- 9674 Dec, [facility] [place] [facility] [address] [id number] [place] [address]- 9446 Nov, [facility] [place] [facility] [address] [id number] [place] [address]- 4638 Nov, [facility] [place] [facility] [address] [id number] [place] [address]- 9326 Nov, [facility] [place] [facility] [address] [id number] [place] [address]- 4837 Nov, [facility] [place] [facility] [address] [id number] [place] [address]- 4044 Nov, [facility] [place] [facility] [address] [id number] [place] [address]- 3508 Nov, [facility] [place] [facility] [address] [id number] [place] [address]- 4847 October, [facility] [place] [facility] [address] [id number] [place] [address]- 2375 October, [facility] [place] [facility] [address] [id number] [place] [address]- 6157 October, [facility] [place] [facility] [address] [id number] [place] [address]- 4714 October, [facility] [place] [facility] [address] [id number] [place] [address]- 3737 October, [facility] [place] [facility] [address] [id number] [place] [address]- 6801 October, [facility] [address] [id number] [place] [address]- 4548 October, [facility] [address] [id number] [place] [address]- 2526 October, [facility] [address] [id number] [place] [address]- 8176 October, [facility] [address] [id number] [place] [address]- 5017 October, [facility] [address] [id number] [place] [address]- 0017 October, [facility] [address] [id number] [place] [address]- 1458 October, [facility] [address] [id number] [place] [address]- 6284 October, [facility] [address] [id number] [place] [address]- 1748 Sep, [facility] [address] [id number] [place] [address]- 0474 Sep, [facility] [address] [id number] [place] [address]- 0242 Aug, [facility] [place] [facility] [address] [id number] [place] [address]- 4708 Aug, [facility] [place] [facility] [address] [id number] [place] [address]- 1406 Aug, [facility] [place] [facility] [address] [id number] [place] [address]- 8556 Aug, [facility] [place] [facility] [address] [id number] [place] [address]- 2436 Aug, [facility] [place] [facility] [address] [id number] [place] [address]- 8088 Aug, [facility] [address] [id number] [place] [address]- 7780 Aug, [facility] [place] [facility] [address] [id number] [place] [address]- 6360 Aug, [facility] [place] [facility] [address] [id number] [place] [address]- 9287 Aug, [facility] [place] [facility] [address] [id number] [place] [address]- 4876 Aug, [facility] [place] [facility] [address] [id number] [place] [address]- 2893 Aug, [facility] [place] [facility] [address] [id number] [place] [address]- 1048 Aug, [facility] [place] [facility] [address] [id number] [place] [address]- 3771 Jul, [facility] [place] [facility] [address] [id number] [place] [address]- 9332 Jul, [facility] [place] [facility] [address] [id number] [place] [address]- 3022 Jul, [facility] [place] [facility] [address] [id number] [place] [address]- 1791 Jul, [facility] [place] [facility] [address] [id number] [address]- 7072 Mar, [facility] [place] [facility] [address] [id number], [place] [address]- 7759 Mar, [facility] [place] [facility] [address] [id number] [place] [address]- 0421 Jan, [facility] [place] [facility] [address] [id number] [place] [address]- 9226 Sep, [facility] [place] [facility] [address] [id number] [place] [address]- 3658 Aug, [facility] [place] [facility] [address] [id number] [place] [address]- 3036 12 Aug, 2012 [facility] [address] [id number] [place] [address]- 8506 08 Aug, 2012 [facility] [address] [id number] [place] [address] 2546 07 Aug, 2012 [facility] [address] [id number] [place] [address]- 7746 05 Aug, 2012 [facility] [address] [id number] [place] [address]- 7011 October, [facility] [address] [id number] [place] [address]- 2341 October, [facility] [address] [id number] [place] [address]- 9333 Sep, [facility] [address] [id number] [place] [address]- 2526 Sep, [facility] [address] [id number] [place] [address]- 7517 Sep, [facility] [address] [id number] [place] [address]- 1463 Sep, [facility] [address] [id number] [place] [address]- 1591 18 Sep, 2011 [facility] [address] [id number] [place] [address] 2548 11 Sep, 2011 [facility] [address] [id number] [place] [address]- 2545 10 Sep, 2011 [facility] [place] [facility] [address] [id number] [place] [address]- 6474 09 Sep, 2011 [facility] [address] [id number] [place] [address]- 2546 07 Sep, 2011 [facility] [address] [id number] [place] [address]- 2549 Sep, [facility] [id number] [address]- 9366 Aug, [facility] [address] [place] [address]- 8826 Aug, [facility] [address], [place] [address]- 9936 Aug, [facility] [id number] [address]- 3856 Aug, [facility] [address], [place] [address]- 1954 Jul, [facility] [address], [place] [address]- 8856 Jul, [facility] [address], [place] [address]- 6106 Jul, [facility] [address], [place] [address]- 5734 May, [facility] [address], [place] [address]- 0896 May, [facility] [address], [place] [address]- 3898 May, [facility] [address], [place] [address]- 2536 Jan, [facility] [id number], [place] [address]- 4427 Dec, IMMUNIZATIONS No Known Immunizations SOCIAL HISTORY Never Assessed REASON FOR VISIT Triage PLAN OF CARE VITAL SIGNS MEDICATIONS Medication Instructions Dosage Frequency Start Date End Date Duration Status Hydrocodone-Acetaminophen 7.5-325 MG Orally 2 times a day prn 1/2-1 tablet Dec, Jan, 28 days Active RESULTS No Results PROCEDURES [...]
--- OUTSIDE RECORDS SUMMARY | 2018-06-15 19:18 | XMS REPORT ---
Author Author MILIND CHU Organization [facility] Address [address] [place] [address] Care Team Providers Care It Security Consultant Name Role Phone MILIND CHU Unavailable PROBLEMS Type Condition ICD9-CM Code RPO49-IF Code Onset Dates Condition Status SNOMED Code Problem Other chronic pain G89.29 Active 76956738 Problem Pre-diabetes R73.03 Active 278758754 Problem Arthritis of both knees M19.90 Active 017115803 Problem Paresthesia of skin R20.2 Active 68315209 Problem Morbid obesity E66.01 Active 379378318 Problem No diagnosis or condition on [place] I Z03.89 Active 1335414 Problem Insomnia due to medical condition G47.01 Active 888056859 Problem Idiopathic neuropathy G60.9 Active 081265889 Problem Chronic seasonal allergic rhinitis, unspecified trigger J30.2 Active 505615207 Problem Abnormal x-ray of cervical spine R93.7 Active 084327503 Problem Vitamin D deficiency E55.9 Active 56014968 Problem Heartburn R12 Active 71568911 Problem Fibromyalgia M79.7 Active 04055188 Problem Long-term use of high-risk medication Z79.899 Active 044549967 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 44849617 Problem Depression F32.9 Active 58230990 ALLERGIES No Information ENCOUNTERS Encounter Location Date Diagnosis [facility] [id number] [address] Nov, [facility] [address], [place] [address] Nov, Vitamin D deficiency E55.9 [facility] [id number] [address] October, Morbid obesity E66.01 ; Hemorrhoids, unspecified hemorrhoid type K64.9 ; Pre-diabetes R73.03 and BMI 50.0-59.9, adult Z68.43 [place] [id number] [place] [address]50- 7157 October, [place] [address] [address]- [address] October, [place] [address] [address]- [address] October, Left arm numbness R20.0 ; Paresthesia of skin R20.2 ; Anesthesia of skin R20.0 and BMI 50.0-59.9, adult Z68.43 [place] [address] [address]- [address] Sep, BMI 50.0-59.9, adult Z68.43 ; Fibromyalgia M79.7 ; Idiopathic neuropathy G60.9 ; Vitamin D deficiency E55.9 ; Chronic seasonal allergic rhinitis, unspecified trigger J30.2 and Long-term use of high-risk medication Z79.899 [place] [address] [address]- 4971 Aug, Fibromyalgia M79.7 [place] [address] 18201- 1908 Aug, No diagnosis or condition on [place] I Z03.89 [place] [address] [address]- 3149 Aug, Chronic seasonal allergic rhinitis, unspecified trigger J30.2 ; Fibromyalgia M79.7 ; Heartburn R12 ; Pre-diabetes R73.03 ; Change of voice R49.9 and BMI 50.0-59.9, adult Z68.43 [place] [address] [address]60- 2268 Aug, Fibromyalgia M79.7 [place] [address] 15497- 6660 May, Chronic seasonal allergic rhinitis, unspecified trigger J30.2 ; Vaginal itching L29.8 and Vaginal yeast infection B37.3 [facility] [address] [address] May, Arthritis of both knees M19.90 [facility] [address] [place] [address] 6[address]77 -0328 May, Herpes zoster without complication B02.9 and Vaginal penny B37.3 [facility] [id number] [place] [address] 84662- 0544 Mar, [facility] [id number] [place] [address] 71134- 9198 Mar, Arthritis of both knees M19.90 [facility] [id number] [place] [address] 84722- 6321 Mar, Arthritis of both knees M19.90 ; Elevated serum creatinine R79.89 ; Fibromyalgia M79.7 ; Idiopathic neuropathy G60.9 ; Vitamin D deficiency E55.9 ; Pre-diabetes R73.03 and Insomnia due to medical condition G47.01 [facility] [id number] [place] [address] 00909- 6806 Mar, [facility] [facility] [id number] [place] [address] 61481- 2164 Jan, [facility] [id number] [place] [address] 41839- 1065 Jan, Pes planus of left foot M21.42 ; Plantar fasciitis of left foot M72.2 and Neuropathy G62.9 [facility] [address] [place] [address] 50338- 6746 Jan, Arthritis of both knees M19.90 ; Fibromyalgia M79.7 ; Idiopathic neuropathy G60.9 ; Vitamin D deficiency E55.9 ; Pre-diabetes R73.03 ; Insomnia due to medical condition G47.01 ; Bad odor of urine R82.90 and SI ( sacroiliac) pain M53.3 [facility] [id number] [place] [address] 22057- 9647 Jan, [facility] [id number] [place] [address] 57303- 7223 Jan, Elevated serum creatinine R79.89 [facility] [id number] [place] [address] 69387- 5374 Dec, [place] [id number] [place] [address] 67763- 6052 Dec, Arthritis of both knees M19.90 ; Fibromyalgia M79.7 ; Idiopathic neuropathy G60.9 ; Vitamin D deficiency E55.9 and Pre-diabetes R73.03 [facility] [id number] [place] [address] 87672- 1337 Dec, Arthritis of both knees M19.90 [facility] [id number] [place] [address] 48104- 7324 October, [facility] [id number] [place] [address] 47421- 4640 October, [facility] [id number] [place] [address] 22306- 8332 October, Fibromyalgia M79.7 [facility] [id number] [place] [address] 10655- 6356 October, Skin tag L91.8 ; Left foot pain M79.672 and Rash and nonspecific skin eruption R21 [facility] [address] [place] [address] 46793- 7925 Aug, [facility] [address] [place] [address] 59549- 5379 Aug, Arthritis of both knees M19.90 ; Fibromyalgia M79.7 ; Idiopathic neuropathy G60.9 ; Vitamin D deficiency E55.9 ; Morbid obesity due to excess calories E66.01 and History of prediabetes Z87.898 [facility] [address] [place] [address] 29944 -4239 Aug, Blood in ear canal, right H92.21 [facility] [id number] [place] [address] 84679- 3098 Jul, [place] [address] 72163- 7844 Jul, Arthritis of both knees M19.90 ; Fibromyalgia M79.7 ; Idiopathic neuropathy G60.9 and Vitamin D deficiency E55.9 [place] [address] 19229- 6358 Jul, Fibromyalgia M79.7 [place] [address] 25887- 6937 May, Fibromyalgia M79.7 ; Idiopathic neuropathy G60.9 ; Vitamin D deficiency E55.9 ; Memory change R41.3 ; Xerostomia K11.7 and Heartburn R12 [place] [address] 30088- 8025 May, Fibromyalgia M79.7 ; Idiopathic neuropathy G60.9 ; Vitamin D deficiency E55.9 and Memory change R41.3 [place] [address] 89575- 8842 May, [place] [address] 47825- 4108 Mar, [place] [address] 79055- 8144 Jan, [place] [address] 68929- 6327 Jan, [place] [address] 35265- 1975 Jan, Dermatitis L30.9 ; Pain in right shoulder M25.511 ; Fibromyalgia M79.7 and H/O right knee surgery Z98.89 [place] [address] 12722- 1294 Dec, [place] [address] [address]- 8587 Dec, Middle ear effusion, right H65.91 ; Fibromyalgia M79.7 and Heartburn R12 [facility] [address] [place] [address] 47248 -4113 Dec, Otalgia of right ear H92.01 and Middle ear effusion, right H65.91 [facility] [id number] [place] [address] 94062- 2343 Nov, Acute pain of right knee M25.561 [facility] [id number] [place] [address] 16601- 3293 Nov, [place] [id number] [place] [address] 49383- 0175 Nov, Acute pain of right knee M25.561 [facility] [id number] [place] [address] 62535- 5069 October, Osteoarthritis of both knees, unspecified osteoarthritis type M17.0 [facility] [id number] [place] [address] 89628- 1812 October, [facility] [place] [id number] [place] [address] 09200- 9191 Sep, [facility] [id number] [place] [address] 33298- 2637 Sep, Fibromyalgia M79.7 ; Chronic fatigue R53.82 ; Sinusitis J32.9 ; Bronchiolitis J21.9 ; Weight gain R63.5 and Heartburn R12 [facility] [address] [address]- 0016 Sep, Mild hearing loss of right ear H91.91 and Tinnitus of right ear H93.11 [place] [id number] [place] [address] 47214- 3134 Aug, [facility] [id number] [place] [address] 91018- 0219 Aug, [place] [id number] [place] [address] 56885- 6241 Aug, Fibromyalgia M79.7 and Depression F32.9 [place] [id number] [place] [address] 99189- 9850 Aug, [place] [id number] [place] [address] 97263- 3161 Jul, Fibromyalgia M79.7 ; 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 ; Vitamin D deficiency E55.9 ; Long-term use of high-risk medication Z79.899 ; Heartburn R12 ; Chronic fatigue, unspecified R53.82 and Tinnitus of right ear H93.11 [place] [id number] [place] [address] 87342- 7996 Mar, Fibromyalgia M79.7 ; 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 ; Vitamin D deficiency E55.9 ; Diarrhea R19.7 ; Long-term use of high- risk medication Z79.899 and Heartburn R12 [place] [id number] [place] [address] 08500- 4841 Mar, Fibromyalgia 729.1 ; Unspecified hereditary and idiopathic peripheral neuropathy 356.9 ; Unspecified sleep disturbance 780.50 ; Left ankle pain 719.47 and Insomnia 780.52 [place] [id number] [place] [address] 57277- 7987 Mar, Unspecified episodic mood disorder 296.90 and Anxiety state , unspecified 300.00 [place] [id number] [place] [address] 55535- 9768 Mar, Chondromalacia of right knee 717.7 [place] [id number] [place] [address] 02665- 5263 Jan, [place] [id number] [place] [address] 90961- 9734 Dec, Left foot pain 729.5 [place] [address] [place] [address]- 3610 14 Sep, 2014 [facility] [place] [facility] [address] [id number] [place] [address]- 7222 13 Sep, 2014 [facility] [place] [facility] [address] [id number] [place] [address]- 3826 17 Aug, 2014 [facility] [place] [facility] [address] [id number] [place] [address]- 9722 17 Aug, 2014 [facility] [place] [facility] [address] [id number] [place] [address]- 4587 16 Aug, 2014 [facility] [place] [facility] [address] [id number] [place] [address]25 16 Aug, 2014 [facility] [place] [facility] [address] [id number] [place] [address]- 2192 11 Aug, 2014 [facility] [place] [facility] [address] [id number] [place] [address]- 3018 11 Aug, 2014 [facility] [place] [facility] [address] [id number] [place] [address]- 0630 11 Aug, 2014 [facility] [place] [facility] [address] [id number] [place] [address]- 2763 11 Aug, 2014 [facility] [place] [facility] [address] [id number] [place] [address]- 3056 10 Aug, 2014 [facility] [place] [facility] [address] [id number] [place] [address]- 9218 10 Aug, 2014 [facility] [place] [facility] [address] [id number] [place] [address]- 3164 05 Aug, 2014 [facility] [place] [facility] [address] [id number] [place] 2907 05 Aug, 2014 [facility] [place] [facility] [address] [id number] [place] [address]- 6527 12 Aug, 2014 [facility] [place] [facility] [address] [id number] [place] [address]- 9396 12 Aug, 2014 [facility] [place] [facility] [address] [id number] [place] [address]- 5591 Aug, [facility] [place] [facility] [address] [id number] [place] [address]- 7905 Aug, [facility] [place] [facility] [address] [id number] [place] [address]- 7822 Jul, [facility] [place] [facility] [address] [id number] [place] [address]- 0718 Jul, [facility] [place] [facility] [address] [id number] [place] [address]- 9900 Jul, [facility] [place] [facility] [address] [id number] [place] [address]- 9328 Jul, [facility] [place] [facility] [address] [id number] [place] [address]- 5616 May, [facility] [place] [facility] [address] [id number] [address]- 6405 May, [facility] [place] [facility] [address] [id number] [place] [address]- 8139 May, [facility] [place] [facility] [address] [id number] [address]- 5573 Mar, [facility] [place] [facility] [address] [id number], [place] [address]- 8048 Mar, [facility] [place] [facility] [address] [id number] [address]- 6449 Mar, [facility] [place] [facility] [address] [id number] [place] [address]- 2782 Mar, [facility] [place] [facility] [address] [id number], [place] [address]- 5549 Dec, [facility] [place] [facility] [address] [id number][place] [address]- 3106 Dec, [facility] [place] [facility] [address] [id number], [place] [address]- 7967 Nov, [facility] [place] [facility] [address] [id number] [place] [address]- 5728 Nov, [facility] [place] [facility] [address] [id number] [place] [address]- 9496 Nov, [facility] [place] [facility] [address] [id number] [place] [address]- 9198 Nov, [facility] [place] [facility] [address] [id number] [place] [address]- 3100 Nov, [facility] [place] [facility] [address] [id number] [place] [address]- 6872 Nov, [facility] [place] [facility] [address] [id number] [place] [address]- 1802 October, [facility] [place] [facility] [address] [id number] [place] [address]- 3095 October, [facility] [place] [facility] [address] [id number] [place] [address]- 1335 October, [facility] [place] [facility] [address] [id number] [place] [address]- 5458 October, [facility] [place] [facility] [address] [id number] [place] [address]- 1080 October, [facility] [place] [facility] [address] [id number] [place] [address]- 6063 October, [facility] [place] [facility] [address] [id number] [place] [address]- 3999 October, [facility] [place] [facility] [address] [id number] [place] [address]- 5471 October, [facility] [place] [facility] [address] [id number] [place] [address]- 5526 October, [facility] [place] [facility] [address] [id number] [place] [address]- 4729 October, [facility] [place] [facility] [address] [id number] [place] [address]- 9485 October, [facility] [place] [facility] [address] [id number] [place] [address]- 0439 October, [facility] [place] [facility] [address] [id number] [place] [address]- 7856 October, [facility] [place] [facility] [address] [id number] [place] [address]- 2072 Sep, [facility] [place] [facility] [address] [id number] [place] [address]- 0224 Sep, [facility] [place] [facility] [address] [id number] [place] [address]- 0248 Aug, [facility] [place] [facility] [address] [id number] [place] [address]- 4832 Aug, [facility] [place] [facility] [address] [id number] [place] [address]- 4162 Aug, [facility] [place] [facility] [address] [id number] [place] [address]- 7612 Aug, [facility] [place] [facility] [address] [id number] [place] [address]- 5411 Aug, [facility] [place] [facility] [address] [id number] [place] [address]- 6376 Aug, [facility] [place] [facility] [address] [id number] [place] [address]- 1601 Aug, [facility] [place] [facility] [address] [id number] [place] [address]- 0628 Aug, [facility] [place] [facility] [address] [id number] [place] [address]- 6073 Aug, [facility] [place] [facility] [address] [id number] [place] [address]- 8634 Aug, [facility] [place] [facility] [address] [id number] [place] [address]- 1680 Aug, [facility] [address] [id number] [place] [address]- 1453 Aug, [facility] [address] [id number] [place] [address]- 8721 Jul, [facility] [address] [id number] [place] [address]- 3254 Jul, [facility] [address] [id number] [place] [address]- 0487 Jul, [facility] [address] [id number] [place] [address]- 8928 Jul, [facility] [address] [id number] [place] [address]- 6865 Mar, [facility] [address] [id number] [place] [address]- 4622 Mar, [facility] [address] [id number], [place] [address]- 2156 Jan, [facility] [address] [id number] [place] [address]- 6355 Sep, [facility] [address] [id number][place] [address]- 1127 Aug, [facility] [address] [id number], [place] [address]- 4022 Aug, [facility] [place] [facility] [address] [id number], [place] [address]- 9328 Aug, [facility] [place] [facility] [address] [id number] [place] [address]- 5304 Aug, [facility] [place] [facility] [address] [id number], [place] [address]- 5733 Aug, [facility] [place] [facility] [address] [id number], [place] [address]- 9195 October, [facility] [place] [facility] [address] [id number] [place] [address]- 8344 October, [facility] [place] [facility] [address] [id number] [place] [address]- 2132 Sep, [facility] [place] [facility] [address] [id number] [place] [address]- 9726 Sep, [facility] [place] [facility] [address] [id number] [place] [address]- 0118 Sep, [facility] [place] [facility] [address] [id number] [place] [address]- 8724 Sep, [facility] [place] [facility] [address] [id number] [place] [address]- 3942 Sep, [facility] [place] [facility] [address] [id number] [place] [address]- 9913 Sep, [facility] [place] [facility] [address] [id number] [place] [address]- 9274 Sep, [facility] [place] [facility] [address] [id number] [place] [address]- 8406 Sep, [facility] [place] [facility] [address] [id number] [place] [address]- 2077 Sep, [facility] [place] [facility] [address] [id number] [place] [address]- 6209 Sep, [facility] [place] [facility] [address] [id number] [place] [address]- 1983 Aug, [facility] [place] [facility] [address] [id number] [place] [address]- 4032 17 Aug, 2011 [facility] [place] [facility] [address] [id number] [place] [address]- 0628 13 Aug, 2011 [facility] [place] [facility] [address] [id number] [place] [address]- 8405 10 Aug, 2011 [facility] [place] [facility] [address] [id number], [place] [address]- 2546 Jul, [facility] [address] [facility] [id number], [place] [address]- 6596 Jul, [facility] [id number] [address]- 1616 Jul, [facility] [id number] [address]- 4586 May, [facility] [id number] [address]- 7156 May, [facility] [address] [facility] [id number], [place] [address]- 6931 May, [facility] [id number] [address]- 8136 Jan, [facility] [id number] [address]- 1316 Dec, IMMUNIZATIONS No Known Immunizations SOCIAL HISTORY Never Assessed REASON FOR VISIT Controlled Med Refill PLAN OF CARE VITAL SIGNS MEDICATIONS Medication Instructions Dosage Frequency Start Date End Date Duration Status Hydrocodone-Acetaminophen 7.5-325 MG Orally daily prn 1/2-1 tablet May, Jul, 28 days Active RESULTS No Results PROCEDURES [...]
[2018-06-15 19:19] LABS: BASOPHILS % (AUTO) 0 % (0-10); EOSINOPHILS # (AUTO) 0.3 10^3/uL (0.0-0.3); EOSINOPHILS % (AUTO) 3 % (0-10); HEMATOCRIT 31 % (35-52); HEMOGLOBIN 9.9 G/DL (11.5-16.0); LYMPHOCYTES # (AUTO) 2.2 X 10^3 (1.0-4.0); LYMPHOCYTES % (AUTO) 27 % (12-44); MEAN CORPUSCULAR HEMOGLOBIN 24 PG (25-34); MEAN CORPUSCULAR HGB CONC 32 G/DL (32-36); MEAN CORPUSCULAR VOLUME 74 FL (80-99); MEAN PLATELET VOLUME 10.6 FL (7.4-10.4); MONOCYTES # (AUTO) 0.7 X 10^3 (0.0-1.0); MONOCYTES % (AUTO) 8 % (0-12); NEUTROPHILS # (AUTO) 5.1 X 10^3 (1.8-7.8); NEUTROPHILS % (AUTO) 62 % (42-75); PLATELET COUNT 328 10^3/uL (130-400); RED BLOOD COUNT 4.19 10^6/uL (4.35-5.85); RED CELL DISTRIBUTION WIDTH 16.2 % (10.0-14.5); WHITE BLOOD COUNT 8.2 10^3/uL (4.3-11.0)
--- OUTSIDE RECORDS SUMMARY | 2018-06-15 19:20 | XMS REPORT ---
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 48721134 Problem Vitamin D deficiency E55.9 Active 36887274 Problem Heartburn R12 Active 74211597 Problem Idiopathic neuropathy G60.9 Active 048420368 Problem Chronic seasonal allergic rhinitis, unspecified trigger J30.2 Active 701633556 Problem Pre-diabetes R73.03 Active 857400986 Problem Other chronic pain G89.29 Active 01265646 Problem No diagnosis or condition on [place] I Z03.89 Active 5678206 Problem Insomnia due to medical condition G47.01 Active 194966537 ALLERGIES No Information ENCOUNTERS Encounter Location Date Diagnosis [place] [id number] [place] [address] 63157- 0434 October, [place] [id number] [place] [id number] [place] [address] 28439- 8701 Sep, BMI 50.0-59.9, adult Z68.43 ; Fibromyalgia M79.7 ; Idiopathic neuropathy G60.9 ; Vitamin D deficiency E55.9 ; Chronic seasonal allergic rhinitis, unspecified trigger J30.2 and Long-term use of high-risk medication Z79.899 [place] [address] [place] [address] [id number] [address] 1580 Aug, Fibromyalgia M79.7 [place] [address] [place] [id number] [place] [address] 03830- 2249 Aug, No diagnosis or condition on [place] I Z03.89 [place] [address] 7[address]- 7932 Aug, Chronic seasonal allergic rhinitis, unspecified trigger J30.2 ; Fibromyalgia M79.7 ; Heartburn R12 ; Pre-diabetes R73.03 ; Change of voice R49.9 and BMI 50.0-59.9, adult Z68.43 [place] [address] [place] [id number] [place] [address] 76663- 7420 Aug, Fibromyalgia M79.7 [place] [address] 75049- 2736 May, Chronic seasonal allergic rhinitis, unspecified trigger J30.2 ; Vaginal itching L29.8 and Vaginal yeast infection B37.3 [place] [address] [place] [id number] [place] [address] 62803- 0506 May, Arthritis of both knees M19.90 [facility] [address] [place] [address] [id number] [place] [address] 76484 -7765 May, Herpes zoster without complication B02.9 and Vaginal penny B37.3 [place] [address] [place] [id number] [place] [address] 86728- 4261 Mar, [place] [address] [place] [id number] [place] [address] 18717- 4782 Mar, Arthritis of both knees M19.90 [place] [address] [place] [id number] [place] [address] 01110- 5219 Mar, Arthritis of both knees M19.90 ; Elevated serum creatinine R79.89 ; Fibromyalgia M79.7 ; Idiopathic neuropathy G60.9 ; Vitamin D deficiency E55.9 ; Pre-diabetes R73.03 and Insomnia due to medical condition G47.01 [place] [address] 40830- 7861 Mar, [place] [address] [place] [id number] [place] [address] 56314- 2038 Jan, [place] [address] 42281- 9769 Jan, Pes planus of left foot M21.42 ; Plantar fasciitis of left foot M72.2 and Neuropathy G62.9 [place] [address] 46340- 6621 Jan, Arthritis of both knees M19.90 ; Fibromyalgia M79.7 ; Idiopathic neuropathy G60.9 ; Vitamin D deficiency E55.9 ; Pre-diabetes R73.03 ; Insomnia due to medical condition G47.01 ; Bad odor of urine R82.90 and SI ( sacroiliac) pain M53.3 [place] [address] [place] [id number] [place] [address] 13865- 9987 Jan, [place] [address] [place] [id number] [place] [address] 10253- 4599 Jan, Elevated serum creatinine R79.89 [place] [address] [place] [id number] [place] [address] 15524- 0572 Dec, [place] [address] [place] [id number] [place] [address] 69738- 0264 Dec, Arthritis of both knees M19.90 ; Fibromyalgia M79.7 ; Idiopathic neuropathy G60.9 ; Vitamin D deficiency E55.9 and Pre-diabetes R73.03 [place] [address] [place] [id number] [place] [address] 50844- 0920 Dec, Arthritis of both knees M19.90 [place] [address] [place] [id number] [place] [address] 37329- 8893 October, [place] [address] [place] [id number] [place] [address] 02657- 5074 October, [place] [address] [place] [id number] [place] [address] 42812- 6739 October, Fibromyalgia M79.7 [facility] [address] [place] [address] [id number] [place] [address] 77544- 6198 October, Skin tag L91.8 ; Left foot pain M79.672 and Rash and nonspecific skin eruption R21 [place] [address] [place] [id number] [place] [address] 37012- 7700 Aug, [facility] [address] 94860- 0242 Aug, Arthritis of both knees M19.90 ; Fibromyalgia M79.7 ; Idiopathic neuropathy G60.9 ; Vitamin D deficiency E55.9 ; Morbid obesity due to excess calories E66.01 and History of prediabetes Z87.898 [facility] [address] [place] [address] [id number] [place] [address] 23437 -5676 Aug, Blood in ear canal, right H92.21 [place] [address] 68894- 7998 Jul, [place] [address] 76775- 7693 Jul, Arthritis of both knees M19.90 ; Fibromyalgia M79.7 ; Idiopathic neuropathy G60.9 and Vitamin D deficiency E55.9 [place] [address] [place] [id number] [place] [address] 18010- 2523 Jul, Fibromyalgia M79.7 [place] [address] [place] [id number] [place] [address] 48964- 1657 May, Fibromyalgia M79.7 ; Idiopathic neuropathy G60.9 ; Vitamin D deficiency E55.9 ; Memory change R41.3 ; Xerostomia K11.7 and Heartburn R12 [place] [address] 00586- 8812 May, Fibromyalgia M79.7 ; Idiopathic neuropathy G60.9 ; Vitamin D deficiency E55.9 and Memory change R41.3 [place] [address] [place] [id number] [place] [address] 74786- 7300 May, [facility] [address] [address]- 1593 Mar, [facility] [address] [place] [id number] [place] [address] 50488- 7984 Jan, [facility] [address] [place] [address] [id number] [place] [address] 10742- 1960 Jan, [facility] [address] [place] [id number] [place] [address] 32414- 6142 Jan, Dermatitis L30.9 ; Pain in right shoulder M25.511 ; Fibromyalgia M79.7 and H/O right knee surgery Z98.89 [facility] [address] [place] [address] [id number] [place] [address] 44558- 2132 Dec, [facility] [address] [place] [id number] [place] [address] 25562- 9129 Dec, Middle ear effusion, right H65.91 ; Fibromyalgia M79.7 and Heartburn R12 [facility] [address] [place] [address] 48225 -5773 Dec, Otalgia of right ear H92.01 and Middle ear effusion, right H65.91 [facility] [address] [place] [address] 45336- 3634 Nov, Acute pain of right knee M25.561 [facility] [address] [place] [address] 19317- 9513 Nov, [facility] [address] [place] [id number] [place] [address] 99539- 3310 Nov, Acute pain of right knee M25.561 [facility] [address] [place] [id number] [place] [address] 65021- 6262 October, Osteoarthritis of both knees, unspecified osteoarthritis type M17.0 [facility] [address] [place] [address] 71254- 1817 October, [place] [address] [place] [id number] [place] [address] 19688- 7741 Sep, [place] [address] [place] [id number] [place] [address] 81722- 2685 Sep, Fibromyalgia M79.7 ; Chronic fatigue R53.82 ; Sinusitis J32.9 ; Bronchiolitis J21.9 ; Weight gain R63.5 and Heartburn R12 [place] [address] 85327- 0641 Sep, Mild hearing loss of right ear H91.91 and Tinnitus of right ear H93.11 [place] [address] 85296- 4024 Aug, [place] [address] 78955- 5687 Aug, [place] [address] 76046- 9076 Aug, Fibromyalgia M79.7 and Depression F32.9 [place] [address] [place] [id number] [place] [address] 65240- 9884 Aug, [place] [address] [place] [id number] [place] [address] 28726- 5579 Jul, Fibromyalgia M79.7 ; 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 ; Vitamin D deficiency E55.9 ; Long-term use of high-risk medication Z79.899 ; Heartburn R12 ; Chronic fatigue, unspecified R53.82 and Tinnitus of right ear H93.11 [place] [address] [place] [address] 57717- 7691 Mar, Fibromyalgia M79.7 ; 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 ; Vitamin D deficiency E55.9 ; Diarrhea R19.7 ; Long-term use of high- risk medication Z79.899 and Heartburn R12 [place] [address] [place] [id number] [place] [address] 75117- 9685 Mar, Fibromyalgia 729.1 ; Unspecified hereditary and idiopathic peripheral neuropathy 356.9 ; Unspecified sleep disturbance 780.50 ; Left ankle pain 719.47 and Insomnia 780.52 [facility] [address] [place] [address] [id number] [place] [address] 483303- 9720 22 Mar, 2015 Unspecified episodic mood disorder 296.90 and Anxiety state , unspecified 300.00 [facility] [address] [place] [address] [id number] [place] [address] 68195- 2670 Mar, Chondromalacia of right knee 717.7 [facility] [address] [place] [id number] [place] [address] 90579- 8696 Jan, [facility] [address] [place] [address] [id number] [place] [address] 46729- 7429 Dec, Left foot pain 729.5 [facility] [address] [place] [id number] [place] [address] 24778- 3137 14 Sep, 2014 [facility] [address] [place] [address] [id number] [place] [address] 37492- 1917 Sep, [facility] [address] [place] [address] [id number] [place] [address] 83410- 8504 17 Aug, 2014 [facility] [address] [place] [address] [id number] [place] [address] 97845- 9329 17 Aug, 2014 [facility] [address] [address]- 9854 16 Aug, 2014 [facility] [address] [place] [id number] [place] [address] 36688- 4505 16 Aug, 2014 [facility] [id number] [address]- 0862 11 Aug, 2014 [facility] [address] [place] [address] [id number] [place] [address] [id number]- 0114 Aug, [facility] [address]- 2100 Aug, [facility] [address] [place] [address] [id number] [place] [address] [place] [address]- 9144 Aug, [facility] [place] [facility] [address] [id number] [place] [address]- 5305 Aug, [facility] [place] [facility] [address] [id number] [place] [address]- 0146 10 Aug, 2014 [facility] [place] [facility] [address] [id number] [place] [address]- 8152 05 Aug, 2014 [facility] [place] [facility] [address] [id number] [place] [address]- 8933 05 Aug, 2014 [facility] [place] [facility] [address] [id number] [place] [address]- 1800 Aug, [facility] [place] [facility] [address] [id number] [place] [address]- 8821 Aug, [facility] [place] [facility] [address] [id number] [place] [address]- 8026 Aug, [facility] [place] [facility] [address] [id number] [place] [address]- 3644 Aug, [facility] [place] [facility] [address] [id number] [place] [address]- 6808 Jul, [facility] [place] [facility] [address] [facility] [id number] [place] [address]- 5050 Jul, [facility] [place] [facility] [address] [id number] [place] [address]- 1981 Jul, [facility] [place] [facility] [address] [id number] [address]- 8286 Jul, [facility] [place] [facility] [address] [id number] [place] [address]- 9892 May, [facility] [place] [facility] [address] [id number] [place] [address]- 3247 May, [facility] [place] [facility] [address] [id number] [place] [address]- 7115 May, [facility] [place] [facility] [address] [id number] [place] [address]- 0702 Mar, [facility] [place] [facility] [address] [id number] [place] [address]- 2387 Mar, [facility] [place] [facility] [address] [id number] [place] [address]- 1052 Mar, [facility] [place] [facility] [address] [id number] [place] [address]- 0980 Mar, [facility] [place] [facility] [address] [id number] [place] [address]- 0731 Dec, [facility] [place] [facility] [address] [id number] [place] [address]- 1319 Dec, [facility] [place] [facility] [address] [id number] [place] [address]- 5733 Nov, [facility] [place] [facility] [address] [id number] [place] [address]- 9886 Nov, [facility] [place] [facility] [address] [id number] [place] [address]- 7031 Nov, [facility] [place] [facility] [address] [id number] [place] [address]- 8662 Nov, [facility] [place] [facility] [address] [id number] [place] [address]- 1503 Nov, [facility] [place] [facility] [address] [id number] [place] [address]- 4304 Nov, [facility] [place] [facility] [address] [id number] [place] [address]- 2102 October, [facility] [place] [facility] [address] [id number] [place] [address]- 7905 October, [facility] [place] [facility] [address] [id number] [place] [address]- 9509 October, [facility] [place] [facility] [address] [id number] [place] [address]- 4325 October, [facility] [place] [facility] [address] [id number] [place] [address]- 0790 October, [facility] [place] [facility] [address] [id number] [place] [address]- 4908 October, [facility] [place] [facility] [address] [id number] [place] [address]- 2169 October, [facility] [place] [facility] [address] [id number] [place] [address]- 8476 October, [facility] [place] [facility] [address] [id number] [place] [address]- 1747 October, [facility] [place] [facility] [address] [id number] [place] [address]- 7461 October, [facility] [place] [facility] [address] [id number] [place] [address]- 6865 October, [facility] [place] [facility] [address] [id number] [place] [address]- 1730 October, [facility] [place] [facility] [address] [id number] [place] [address]- 7697 October, [facility] [place] [facility] [address] [id number] [place] [address]- 4618 Sep, [facility] [place] [facility] [address] [id number] [place] [address]- 5004 Sep, [facility] [place] [facility] [address] [id number] [place] [address]- 2391 Aug, [facility] [place] [facility] [address] [id number] [place] [address]- 5616 Aug, [facility] [place] [facility] [address] [id number] [place] [address]- 0365 Aug, [facility] [place] [facility] [address] [id number] [place] [address]- 4444 Aug, [facility] [place] [facility] [address] [id number] [place] [address]- 2810 Aug, [facility] [place] [facility] [address] [id number] [place] [address]- 9983 Aug, [facility] [place] [facility] [address] [id number] [place] [address]- 2709 Aug, [facility] [place] [facility] [address] [id number] [place] [address]- 5689 Aug, [facility] [place] [facility] [address] [id number] [place] [address]- 9869 Aug, [facility] [place] [facility] [address] [id number] [place] [address]- 2871 Aug, [facility] [place] [facility] [address] [id number] [place] [address]- 3389 Aug, [facility] [place] [facility] [address] [id number] [place] [address]- 6428 Aug, [facility] [place] [facility] [address] [id number] [place] [address]- 9997 Jul, [facility] [place] [facility] [address] [id number] [place] [address]- 7698 Jul, [facility] [place] [facility] [address] [facility] [id number] [place] [address]- 2387 Jul, [facility] [place] [facility] [address] [id number] [place] [address]- 3020 Jul, [facility] [place] [facility] [address] [id number] [place] [address]- 6753 Mar, [facility] [place] [facility] [address] [id number] [place] [address]- 1019 Mar, [facility] [place] [facility] [address] [id number] [place] [address]- 8715 Jan, [facility] [place] [facility] [address] [id number] [place] [address]- 4762 Sep, [facility] [address] [id number] [place] [address]- 4607 14 Aug, 2012 [facility] [address] [id number] [place] [address]- 3256 12 Aug, 2012 [facility] [address] [id number] [place] [address]- 1326 08 Aug, 2012 [facility] [address] [id number] [place] [address]- 3531 07 Aug, 2012 [facility] [address] [id number] [place] [address]- 7256 05 Aug, 2012 [facility] [address] [id number] [place] [address]- 2797 October, [facility] [address] [id number] [place] [address]- 4435 October, [facility] [address] [id number] [place] [address]- 9173 27 Sep, 2011 [facility] [address] [id number] [place] [address]- 3542 Sep, [facility] [place] [facility] [address] [id number] [place] [address]- 2026 25 Sep, 2011 [facility] [address] [id number] [place] [address]- 4839 19 Sep, 2011 [facility] [place] [facility] [address] [id number] [place] [address]- 8439 18 Sep, 2011 [facility] [place] [facility] [address] [id number] [place] [address]- 8346 11 Sep, 2011 [facility] [place] [facility] [address] [id number] [place] [address]- 2066 10 Sep, 2011 [facility] [place] [facility] [address] [id number] [place] [address]- 1649 09 Sep, 2011 [facility] [place] [facility] [address], [place] [address]- 5566 Sep, [facility] [address] [address]- 9846 Sep, [facility] [address], [place] [address] 2546 Aug, [facility] [address] [address]- 6976 17 Aug, 2011 [facility] [address] [address]- 8306 Aug, [facility] [id number] [place] [address] 51554- 0106 Aug, [facility] [address], [place] [address]- 1086 Jul, [facility] [id number] [address]- 5880 Jul, [facility] [address] [place] [address]- 5737 Jul, [facility] [address], [place] [address]- 0476 May, [facility] [address] [address]- 8996 May, [facility] [address] [address]- 2858 May, [facility] [address] [address]- 3787 Jan, [facility] [address] [place] [address]- 6108 Dec, IMMUNIZATIONS No Known Immunizations SOCIAL HISTORY [...]
--- OUTSIDE RECORDS SUMMARY | 2018-06-15 19:22 | XMS REPORT | Continuity of Care Document ---
Author Author [facility] Address Unknown Phone Unavailable Allergies Active Description Code Type Severity Reaction Onset Reported/Identified Relationship to Patient Clinical Status Yes CYMBALTA MODERATE OTHER Yes DEMEROL MODERATE OTHER Yes EFFEXOR XR MODERATE OTHER Yes LYRICA MODERATE GI PROBLEMS - VOMITI Yes NAPROXEN MODERATE GI PROBLEMS - VOMITI Yes NEURONTIN MODERATE OTHER Yes NO KNOWN DRUG ALLERGIES UNKNOWN NO KNOWN DRUG ALLERG Yes meperidine [id number] Drug Allergy Mild SWELLING 12/12/2009 Yes Demerol Drug Allergy N/A N/A 12/24/2009 Yes Demerol Drug Allergy 12/24/2009 Yes naproxen Drug Allergy N/A N/A 01/04/2010 Yes naproxen Drug Allergy 01/04/2010 Yes Cymbalta 30 mg Capsule, Delayed Release(E.C.) Drug Allergy N/A N/A 2012 Yes Cymbalta 30 mg Capsule, Delayed Release(E.C.) Drug Allergy 2012 Yes Effexor Drug Allergy N/A N/A 07/09/2013 Yes Neurontin Drug Allergy N/A N/A 07/09/2013 Yes gabapentin [id number] Drug Allergy Unknown N/A 11/24/2015 Yes NAPROXYN NAPROXYN Unknown ABD PAIN AND VO 11/24/2015 Yes pregabalin [id number] Drug Allergy Unknown N/A 11/24/2015 Yes venlafaxine [id number] Drug Allergy Unknown N/A 11/24/2015 Yes naproxen [id number] Drug Allergy Unknown NAUSEA 01/12/2016 Medications Medication Packaging Start Date Stop Date Route Dosage Sig LACTATED RINGERS 1000CC IV BAG INJ ml 05/14/2018 05/21/2018 CONTINUOUSEVERY 0 Hour Scopolamine TD patch 3 day (TransDerm- Scop patch) PATCH 06/10/2018 06/10/2018 ONCE&0700 NORMAL SALINE 1000CC IV BAG INJ 0.9 % (NS 1000CC IV BAG) ml 06/10/2018 06/25/2018 CONTINUOUSEVERY 0 Hour MORPHINE TYPE COPYIST SYRINGE INJ 30 MG/30CC (MORPHINE TYPE COPYIST SYRINGE) MG 06/10/2018 06/13/2018 CONTINUOUSEVERY 0 Hour D5 LAC RINGERS 1000CC IV BAG INJ ml 06/10/2018 06/17/2018 CONTINUOUSEVERY 0 Hour ALBUTEROL SVN 2.5MG/3CC LIQ 2.5 MG (PROVENTIL DEO 2.5MG/3CC) MG 06/10/2018 06/20/2018 QID&0600,1100,1600,2100 PROMETHAZINE VIAL INJ 25 MG/CC (PHENERGAN VIAL) MG 06/10/2018 06/20/2018 PRN QID METOCLOPRAMIDE VIAL INJ 10 MG/2CC (REGLAN 2CC VIAL) MG 06/10/2018 06/20/2018 PRN Q6H ENALAPRIL VIAL INJ 1.25 MG/CC (VASOTEC VIAL) MG 06/10/2018 06/13/2018 PRN Q6H Hydromorphone inj 2mg/cc vial (Dilaudid) MG 06/10/2018 06/10/2018 ONCE&1228 ONDANSETRON VIAL INJ 4 MG/2CC (ZOFRAN 2CC VIAL) MG 06/10/2018 06/17/2018 PRN Q4H CEFAZOLIN PREMIX IV BAG IV 1 GM/50CC (ANCEF PREMIX IV BAG) GM 06/10/2018 06/11/2018 Q8H&0600,2200 Hydromorphone inj 2mg/cc vial (Dilaudid) MG 06/10/2018 06/17/2018 PRN Q3H PANTOPRAZOLE VIAL INJ 40 MG (PROTONIX IV) MG 06/11/2018 06/20/2018 Daily&0900 HYDROCODONE/APAP 7.5/325 ELIX LIQ 15 CC (LORTAB ELIX 7.5/325) ML 06/11/2018 06/21/2018 PRN Q4H PANTOPRAZOLE VIAL INJ 40 MG (PROTONIX IV) MG 06/11/2018 06/11/2018 ONCE&2035 Hydromorphone inj 2mg/cc vial (Dilaudid) MG 06/11/2018 06/11/2018 PRN ONCE Hydromorphone inj 2mg/cc vial (Dilaudid) MG 06/14/2018 06/14/2018 ONCE&1641 NORMAL SALINE 1000CC IV BAG INJ 0.9 % (NS 1000CC IV BAG) ml 06/14/2018 06/14/2018 ONCE&1641 POTASSIUM CL 20MEQ VIAL INJ 20 MEQ/10CC (KCL VIAL) MEQ 06/14/2018 06/14/2018 ONCE&1739 NORMAL SALINE 500CC IV BAG INJ 0.9 % (NS 500CC IV BAG) ml 06/14/2018 06/14/2018 ONCE&1739 Problems Date Dx Coded Attending Type Code Diagnosis Diagnosed By 05/30/1207 ALEX HUTCHINSON APRN Ot G60.3 IDIOPATHIC PROGRESSIVE NEUROPATHY 05/30/1207 ALEX HUTCHINSON APRN Ot M54.12 RADICULOPATHY, CERVICAL REGION 12/12/2009 Ot 131.01 12/12/2009 Ot 614.9 12/12/2009 Ot 625.9 12/24/2009 GUZMAN FORD DO K 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 12/24/2009 GUZMAN FORD DO K 625.3 DYSMENORRHEA 12/24/2009 GUZMAN FORD DO K 789.00 ABDOMINAL PAIN UNSPECIFIED SITE 12/24/2009 NOEMÍ MCCLURE MD, KIARA A 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 12/24/2009 NOEMÍ MCCLURE MD, KIARA A 625.3 DYSMENORRHEA 12/24/2009 NOEMÍ MCCLURE MD, KIARA A 789.00 ABDOMINAL PAIN UNSPECIFIED SITE 12/24/2009 ROXANE DURANT APRNNDA S 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 12/24/2009 CARLEEN LEE KASSY S 625.3 DYSMENORRHEA 12/24/2009 ROXANE DURANT APRNNDA S 789.00 ABDOMINAL PAIN UNSPECIFIED SITE 12/24/2009 ROXANE DURANT APRNNDA S 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 12/24/2009 ROXANE DURANT APRNNDA S 625.3 DYSMENORRHEA 12/24/2009 CARLEEN 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, KASSY S 789.00 ABDOMINAL PAIN UNSPECIFIED SITE 12/24/2009 FORD DO, GUZMAN K 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 12/24/2009 FORD DO, GUZMAN K 625.3 DYSMENORRHEA 12/24/2009 FORD DO, GUZMAN K 789.00 ABDOMINAL PAIN UNSPECIFIED SITE 12/24/2009 RACIEL LEE EVANS R 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 12/24/2009 RACIEL LEE EVANS R 625.3 DYSMENORRHEA 12/24/2009 RACIEL LEE, EVANS R 789.00 ABDOMINAL PAIN UNSPECIFIED SITE 12/24/2009 RODRIGUEZ CASHALVAREZ 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, ALICE N 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 12/24/2009 RODRIGUEZ CRISTY 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, ALICE N 625.3 DYSMENORRHEA 12/24/2009 RODRIGUEZ CASHALVAREZ 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, ALICE N 789.00 ABDOMINAL PAIN UNSPECIFIED SITE 12/24/2009 FORD DO, GUZMAN K 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 12/24/2009 FORD DO, GUZMAN K 625.3 DYSMENORRHEA 12/24/2009 FORD DO, GUZMAN K 789.00 ABDOMINAL PAIN UNSPECIFIED SITE 12/24/2009 CARLEENESDRAS LEE KASSY S 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 12/24/2009 CARLEEN LEE, KASSY S 625.3 DYSMENORRHEA 12/24/2009 CARLEENKATHY LEE, KASSY S 789.00 ABDOMINAL PAIN UNSPECIFIED SITE 12/24/2009 MICHAEL MUNIZ APRN, ALICE N 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 12/24/2009 RODRIGUEZ CASHERO 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, ALICE N 625.3 DYSMENORRHEA 12/24/2009 RODRIGUEZ CASHERO 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, ALICE N 789.00 ABDOMINAL PAIN UNSPECIFIED SITE 12/24/2009 RACIEL LEE EVANS R 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 12/24/2009 RACIEL SARMIENTON, EVANS R 625.3 DYSMENORRHEA 12/24/2009 RACIEL 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, EVANS R 789.00 ABDOMINAL PAIN UNSPECIFIED SITE 12/24/2009 FORD DO GUZMAN K 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 12/24/2009 FORD DO, GUZMAN K 625.3 DYSMENORRHEA 12/24/2009 FORD DO, GUZMAN K 789.00 ABDOMINAL PAIN UNSPECIFIED SITE 12/24/2009 RAJOTTE 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, ORLY A 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 12/24/2009 RAJOTTE 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, ORLY A 625.3 DYSMENORRHEA 12/24/2009 RAJOTTE 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, ORLY A 789.00 ABDOMINAL PAIN UNSPECIFIED SITE 12/24/2009 RACIEL 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, EVANS R 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 12/24/2009 RACIEL 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, EVANS R 625.3 DYSMENORRHEA 12/24/2009 RACIEL 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, EVANS R 789.00 ABDOMINAL PAIN UNSPECIFIED SITE 12/24/2009 MONTRELL MUNROE APRN 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 12/24/2009 MONTRELL MUNROE APRN 625.3 DYSMENORRHEA 12/24/2009 MONTRELL MUNROE APRN 789.00 ABDOMINAL PAIN UNSPECIFIED SITE 12/24/2009 DEANNE AICHAMF, KENYETTA W 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 12/24/2009 DEANNE LCMF, KENYETTA W 625.3 DYSMENORRHEA 12/24/2009 DEANNE LCMF, KENYETTA W 789.00 ABDOMINAL PAIN UNSPECIFIED SITE 12/24/2009 MADL 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, MILIND L 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 12/24/2009 MADL 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, MILIND L 625.3 DYSMENORRHEA 12/24/2009 MADL 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, MILIND L 789.00 ABDOMINAL PAIN UNSPECIFIED SITE 12/24/2009 DEANNE LCMF, KENYETTA W 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 12/24/2009 DEANNE LCMF, KENYETTA W 625.3 DYSMENORRHEA 12/24/2009 DEANNE LCMF, KENYETTA W 789.00 ABDOMINAL PAIN UNSPECIFIED SITE 12/24/2009 DIANE ANGELA 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 12/24/2009 DIANE ANGELA 625.3 DYSMENORRHEA 12/24/2009 DIANE ANGELA 789.00 ABDOMINAL PAIN UNSPECIFIED SITE 01/04/2010 FORD DO, GUZMAN K V72.31 ENVIRONMENTAL REMEDIATION SPECIALIST EXAM, ROUTINE 01/04/2010 NOEMÍ MCCLURE MD, KIARA Rebolledo V72.31 ENVIRONMENTAL REMEDIATION SPECIALIST EXAM, ROUTINE 01/04/2010 CARLEEN 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, KASSY S V72.31 ENVIRONMENTAL REMEDIATION SPECIALIST EXAM, ROUTINE 01/04/2010 CARLEEN 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, KASSY S V72.31 ENVIRONMENTAL REMEDIATION SPECIALIST EXAM, ROUTINE 01/04/2010 FORD DO, GUZMAN K V72.31 ENVIRONMENTAL REMEDIATION SPECIALIST EXAM, ROUTINE 01/04/2010 RACIEL 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, EVANS R V72.31 ENVIRONMENTAL REMEDIATION SPECIALIST EXAM, ROUTINE 01/04/2010 MICHAEL MUNIZ 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, ALICE N V72.31 ENVIRONMENTAL REMEDIATION SPECIALIST EXAM, ROUTINE 01/04/2010 FORD DO, GUZMAN K V72.31 ENVIRONMENTAL REMEDIATION SPECIALIST EXAM, ROUTINE 01/04/2010 CARLEEN 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, KASSY S V72.31 ENVIRONMENTAL REMEDIATION SPECIALIST EXAM, ROUTINE 01/04/2010 MICHAEL MUNIZ 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, ALICE N V72.31 ENVIRONMENTAL REMEDIATION SPECIALIST EXAM, ROUTINE 01/04/2010 RACIEL 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, EVANS R V72.31 ENVIRONMENTAL REMEDIATION SPECIALIST EXAM, ROUTINE 01/04/2010 FORD DO, GUZMAN K V72.31 ENVIRONMENTAL REMEDIATION SPECIALIST EXAM, ROUTINE 01/04/2010 AR 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, ORLY A V72.31 ENVIRONMENTAL REMEDIATION SPECIALIST EXAM, ROUTINE 01/04/2010 RACIEL 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, EVANS R V72.31 ENVIRONMENTAL REMEDIATION SPECIALIST EXAM, ROUTINE 01/04/2010 LUDWIG 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MONTRELL Bill V72.31 ENVIRONMENTAL REMEDIATION SPECIALIST EXAM, ROUTINE 01/04/2010 DEANNE HOLCOMBMF, KENYETTA W V72.31 ENVIRONMENTAL REMEDIATION SPECIALIST EXAM, ROUTINE 01/04/2010 MILIND CHU APRN V72.31 ENVIRONMENTAL REMEDIATION SPECIALIST EXAM, ROUTINE 01/04/2010 DEANNE LCMF, KENYETTA W V72.31 ENVIRONMENTAL REMEDIATION SPECIALIST EXAM, ROUTINE 01/04/2010 DIANE ANGELA V72.31 ENVIRONMENTAL REMEDIATION SPECIALIST EXAM, ROUTINE 01/09/2010 FORD DO, GUZMAN K 278.00 OBESITY, UNSPECIFIED 01/09/2010 FORD DO, GUZMAN K 782.3 Edema 01/09/2010 FORD DO, GUZMAN K 783.5 POLYDIPSIA 01/09/2010 FORD DO, GUZMAN K 788.42 POLYURIA 01/09/2010 NOEMÍ MCCLURE MD, KIARA Rebolledo 278.00 OBESITY, UNSPECIFIED 01/09/2010 NOEMÍ MCCLURE MD, KIARA A 782.3 Edema 01/09/2010 NOEMÍ MCCLURE MD, KIARA A 783.5 POLYDIPSIA 01/09/2010 NOEMÍ MCCLURE MD, KIARA A 788.42 POLYURIA 01/09/2010 CARLEEN 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, KASSY S 278.00 OBESITY, UNSPECIFIED 01/09/2010 CARLEEN 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, KASSY S 782.3 Edema 01/09/2010 CARLEEN 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, KASSY S 783.5 POLYDIPSIA 01/09/2010 CARLEEN 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, KASSY S 788.42 POLYURIA 01/09/2010 CARLEEN 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, KASSY S 278.00 OBESITY, UNSPECIFIED 01/09/2010 CARLEEN 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, KASSY S 782.3 Edema 01/09/2010 CARLEEN 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, KASSY S 783.5 POLYDIPSIA 01/09/2010 CARLEEN 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, KASSY S 788.42 POLYURIA 01/09/2010 FORD DO, GUZMAN K 278.00 OBESITY, UNSPECIFIED 01/09/2010 FORD DO, GUZMAN K 782.3 Edema 01/09/2010 FORD DO, GUZMAN K 783.5 POLYDIPSIA 01/09/2010 FORD DO, GUZMAN K 788.42 POLYURIA 01/09/2010 RACIEL 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, EVANS R 278.00 OBESITY, UNSPECIFIED 01/09/2010 RACIEL 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, EVANS R 782.3 Edema 01/09/2010 RACIEL LEE EVANS R 783.5 POLYDIPSIA 01/09/2010 RACIEL LEE, EVANS R 788.42 POLYURIA 01/09/2010 RODRIGUEZ CASHALVAREZ 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, ALICE N 278.00 OBESITY, UNSPECIFIED 01/09/2010 RODRIGUEZ CASHERO 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, ALICE N 782.3 Edema 01/09/2010 RODRIGUEZ CASHERO 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, ALICE N 783.5 POLYDIPSIA 01/09/2010 RODRIGUEZ CASHERO 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, ALICE N 788.42 POLYURIA 01/09/2010 FORD DO, GUZMAN K 278.00 OBESITY, UNSPECIFIED 01/09/2010 FORD DO, GUZMAN K 782.3 Edema 01/09/2010 FORD DO, GUZMAN K 783.5 POLYDIPSIA 01/09/2010 FORD DO, GUZMAN K 788.42 POLYURIA 01/09/2010 CARLEEN 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, KASSY S 278.00 OBESITY, UNSPECIFIED 01/09/2010 CARLEEN 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, KASSY S 782.3 Edema 01/09/2010 CARLEEN 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, KASSY S 783.5 POLYDIPSIA 01/09/2010 CARLEEN 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, KASSY S 788.42 POLYURIA 01/09/2010 RODRIGUEZ CASHERO 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, ALICE N 278.00 OBESITY, UNSPECIFIED 01/09/2010 RODRIGUEZ CASHERO 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, ALICE N 782.3 Edema 01/09/2010 RODRIGUEZ CASHERO 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, ALICE N 783.5 POLYDIPSIA 01/09/2010 RODRIGUEZ CASHERO 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, ALICE N 788.42 POLYURIA 01/09/2010 RACIEL 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, EVANS R 278.00 OBESITY, UNSPECIFIED 01/09/2010 RACIEL SARMIENTON, EVANS R 782.3 Edema 01/09/2010 RACIEL 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, EVANS R 783.5 POLYDIPSIA 01/09/2010 RACIEL 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, EVANS R 788.42 POLYURIA 01/09/2010 FORD DO, GUZMAN K 278.00 OBESITY, UNSPECIFIED 01/09/2010 FORD DO, GUZMAN K 782.3 Edema 01/09/2010 FORD DO, GUZMAN K 783.5 POLYDIPSIA 01/09/2010 FORD DO, GUZMAN K 788.42 POLYURIA 01/09/2010 KATHYE 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, ORLY A 278.00 OBESITY, UNSPECIFIED 01/09/2010 RAJELAINEE 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, ORLY A 782.3 Edema 01/09/2010 RAJOTTE 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, ORLY A 783.5 POLYDIPSIA 01/09/2010 RAJOTTE 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, ORLY A 788.42 POLYURIA 01/09/2010 RACIEL 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, EVANS R 278.00 OBESITY, UNSPECIFIED 01/09/2010 RACIEL 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, EVANS R 782.3 Edema 01/09/2010 RACIEL 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, EVANS R 783.5 POLYDIPSIA 01/09/2010 RACIEL 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, EVANS R 788.42 POLYURIA 01/09/2010 MUNROE 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, MONTRELL D 278.00 OBESITY, UNSPECIFIED 01/09/2010 MUNROE 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, MONTRELL D 782.3 Edema 01/09/2010 MUNROE 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, MONTRELL D 783.5 POLYDIPSIA 01/09/2010 MUNROE 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, MONTRELL D 788.42 POLYURIA 01/09/2010 DEANNE LCMF, KENYETTA W 278.00 OBESITY, UNSPECIFIED 01/09/2010 DEANNE LCMF, KENYETTA W 782.3 Edema 01/09/2010 DEANNE LCMF, KENYETTA W 783.5 POLYDIPSIA 01/09/2010 DEANNE LCMF, KENYETTA W 788.42 POLYURIA 01/09/2010 MADL 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, MILIND L 278.00 OBESITY, UNSPECIFIED 01/09/2010 MADL 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, MILIND L 782.3 Edema 01/09/2010 MADL 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, MILIND L 783.5 POLYDIPSIA 01/09/2010 MADL 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, MILIND L 788.42 POLYURIA 01/09/2010 DEANNE LCMF, KENYETTA W 278.00 OBESITY, UNSPECIFIED 01/09/2010 DEANNE LCMF, KENYETTA W 782.3 Edema 01/09/2010 DEANNE LCMF, KENYETTA W 783.5 POLYDIPSIA 01/09/2010 DEANNE LCMF, KENYETTA W 788.42 POLYURIA 01/09/2010 CINTHIA SAMPLE TAKER OPERATOR, DIANE M 278.00 OBESITY, UNSPECIFIED 01/09/2010 CINTHIA SAMPLE TAKER OPERATOR, DIANE M 782.3 Edema 01/09/2010 CINTHIA SAMPLE TAKER OPERATOR, DIANE M 783.5 POLYDIPSIA 01/09/2010 CINTHIA SAMPLE TAKER OPERATOR, DIANE M 788.42 POLYURIA 01/12/2010 FORD DO, GUZMAN K 268.9 VITAMIN D DEFICIENCY 01/12/2010 FORD DO, GUZMAN K 285.9 ANEMIA UNSPECIFIED 01/12/2010 NOEMÍ MCCLURE MD, KIARA Rebolledo 268.9 VITAMIN D DEFICIENCY 01/12/2010 NOEMÍ MCCLURE MD, KIARA Rebolledo 285.9 ANEMIA UNSPECIFIED 01/12/2010 KASSY DURANT APRN S 268.9 VITAMIN D DEFICIENCY 01/12/2010 CARLEEN 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, KASSY S 285.9 ANEMIA UNSPECIFIED 01/12/2010 CARLEEN 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, KASSY S 268.9 VITAMIN D DEFICIENCY 01/12/2010 CARLEEN 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, KASSY S 285.9 ANEMIA UNSPECIFIED 01/12/2010 FORD DO, GUZMAN K 268.9 VITAMIN D DEFICIENCY 01/12/2010 FORD DO, GUZMAN K 285.9 ANEMIA UNSPECIFIED 01/12/2010 RACIEL SARMIENTON, EVANS R 268.9 VITAMIN D DEFICIENCY 01/12/2010 RACIEL 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, EVANS R 285.9 ANEMIA UNSPECIFIED 01/12/2010 RODRIGUEZ CASHERO 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, ALICE N 268.9 VITAMIN D DEFICIENCY 01/12/2010 RODRIGUEZ CASHERO 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, ALICE N 285.9 ANEMIA UNSPECIFIED 01/12/2010 FORD DO, GUZMAN K 268.9 VITAMIN D DEFICIENCY 01/12/2010 FORD DO, GUZMAN K 285.9 ANEMIA UNSPECIFIED 01/12/2010 CARLEEN 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, KASSY S 268.9 VITAMIN D DEFICIENCY 01/12/2010 CARLEEN 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, KASSY S 285.9 ANEMIA UNSPECIFIED 01/12/2010 RODRIGUEZ CASHERO 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, ALICE N 268.9 VITAMIN D DEFICIENCY 01/12/2010 RODRIGUEZ CASHERO 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, ALICE N 285.9 ANEMIA UNSPECIFIED 01/12/2010 RACIEL 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, EVANS R 268.9 VITAMIN D DEFICIENCY 01/12/2010 RACIEL 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, EVANS R 285.9 ANEMIA UNSPECIFIED 01/12/2010 FORD DO, GUZMAN K 268.9 VITAMIN D DEFICIENCY 01/12/2010 FORD DO, GUZMAN K 285.9 ANEMIA UNSPECIFIED 01/12/2010 KATHYE 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, ORLY A 268.9 VITAMIN D DEFICIENCY 01/12/2010 KATHYE 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, ORLY A 285.9 ANEMIA UNSPECIFIED 01/12/2010 RACIEL 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, EVANS R 268.9 VITAMIN D DEFICIENCY 01/12/2010 RACIEL 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, EVANS R 285.9 ANEMIA UNSPECIFIED 01/12/2010 LUDWIG 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, MONTRELL D 268.9 VITAMIN D DEFICIENCY 01/12/2010 LUDWIG SARMIENTON, MONTRELL D 285.9 ANEMIA UNSPECIFIED 01/12/2010 DEANNE AVILAF, KENYETTA W 268.9 VITAMIN D DEFICIENCY 01/12/2010 DEANNE LCMF, KENYETTA W 285.9 ANEMIA UNSPECIFIED 01/12/2010 MADL 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, MILIND L 268.9 VITAMIN D DEFICIENCY 01/12/2010 MADL 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, MILIND L 285.9 ANEMIA UNSPECIFIED 01/12/2010 DEANNE LCMF, KENYETTA W 268.9 VITAMIN D DEFICIENCY 01/12/2010 DEANNE LCMF, KENYETTA W 285.9 ANEMIA UNSPECIFIED 01/12/2010 CINTHIA SAMPLE TAKER OPERATOR, DIANE M 268.9 VITAMIN D DEFICIENCY 01/12/2010 CINTHIA SAMPLE TAKER OPERATOR, DIANE M 285.9 ANEMIA UNSPECIFIED 01/31/2010 FORD DO, GUZMAN K 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 01/31/2010 FORD DO, GUZMAN K 626.4 IRREGULAR MENSTRUAL CYCLE 01/31/2010 FORD DO, GUZMAN K 780.8 GENERALIZED HYPERHIDROSIS 01/31/2010 KIARA WILLAMS MD 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 01/31/2010 KIARA WILLAMS MD A 626.4 IRREGULAR MENSTRUAL CYCLE 01/31/2010 KIARA WILLAMS MD A 780.8 GENERALIZED HYPERHIDROSIS 01/31/2010 CARLEEN SARMIENTON, KASSY S 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 01/31/2010 CARLEEN LEE, KASSY S 626.4 IRREGULAR MENSTRUAL CYCLE 01/31/2010 CARLEEN 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, KASSY S 780.8 GENERALIZED HYPERHIDROSIS 01/31/2010 CARLEEN 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, KASSY S 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 01/31/2010 CARLEEN LEE, KASSY S 626.4 IRREGULAR MENSTRUAL CYCLE 01/31/2010 CARLEEN 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, KASSY S 780.8 GENERALIZED HYPERHIDROSIS 01/31/2010 FORD DO, GUZMAN K 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 01/31/2010 FORD DO, GUZMAN K 626.4 IRREGULAR MENSTRUAL CYCLE 01/31/2010 FORD DO, GUZMAN K 780.8 GENERALIZED HYPERHIDROSIS 01/31/2010 RACIEL 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, EVANS R 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 01/31/2010 RACIEL 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, EVANS R 626.4 IRREGULAR MENSTRUAL CYCLE 01/31/2010 RACIEL 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, EVANS R 780.8 GENERALIZED HYPERHIDROSIS 01/31/2010 MICHAEL MUNIZ ALICE LEE N 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 01/31/2010 RODRIGUZEKARTIK LOPEZALVAREZ 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OMKAR BillCY N 626.4 IRREGULAR MENSTRUAL CYCLE 01/31/2010 MICHAEL MUNIZ APRN, ALICE N 780.8 GENERALIZED HYPERHIDROSIS 01/31/2010 FORD DO, GUZMAN K 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 01/31/2010 FORD DO, GUZMAN K 626.4 IRREGULAR MENSTRUAL CYCLE 01/31/2010 FORD DO, GUZMAN K 780.8 GENERALIZED HYPERHIDROSIS 01/31/2010 CARLEEN 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, KASSY S 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 01/31/2010 CARLEEN 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, KASSY S 626.4 IRREGULAR MENSTRUAL CYCLE 01/31/2010 CARLEEN 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, KASSY S 780.8 GENERALIZED HYPERHIDROSIS 01/31/2010 RODRIGUEZKARTIK LOPEZOMKAR PINO APRNCY N 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 01/31/2010 RODRIGUEZ JESSICAOMKAR PINO APRNCY N 626.4 IRREGULAR MENSTRUAL CYCLE 01/31/2010 RODRIGUEZKARTIK MUNIZ APRN, ALICE N 780.8 GENERALIZED HYPERHIDROSIS 01/31/2010 RACIEL 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, EVANS R 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 01/31/2010 RACIEL 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, EVANS R 626.4 IRREGULAR MENSTRUAL CYCLE 01/31/2010 RACIEL 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, EVANS R 780.8 GENERALIZED HYPERHIDROSIS 01/31/2010 FORD DO, GUZMAN K 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 01/31/2010 FORD DO, GUZMAN K 626.4 IRREGULAR MENSTRUAL CYCLE 01/31/2010 FORD DO, GUZMAN K 780.8 GENERALIZED HYPERHIDROSIS 01/31/2010 RAJOTTE 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, ORLY A 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 01/31/2010 RAJOTTE 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, ORLY A 626.4 IRREGULAR MENSTRUAL CYCLE 01/31/2010 RAJOTTE 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, ORLY A 780.8 GENERALIZED HYPERHIDROSIS 01/31/2010 RACIEL 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, EVANS R 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 01/31/2010 RACIEL 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, EVANS R 626.4 IRREGULAR MENSTRUAL CYCLE 01/31/2010 RACIEL 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, EVANS R 780.8 GENERALIZED HYPERHIDROSIS 01/31/2010 MONTRELL MUNROE APRN 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 01/31/2010 MONTRELL MUNROE APRN 626.4 IRREGULAR MENSTRUAL CYCLE 01/31/2010 MONTRELL MUNROE APRN 780.8 GENERALIZED HYPERHIDROSIS 01/31/2010 DEANNE LCMF, KENYETTA W 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 01/31/2010 DEANNE LCMF, KENYETTA W 626.4 IRREGULAR MENSTRUAL CYCLE 01/31/2010 DEANNE LCMF, KENYETTA W 780.8 GENERALIZED HYPERHIDROSIS 01/31/2010 MADL 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, MILIND L 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 01/31/2010 MADL 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, MILIND L 626.4 IRREGULAR MENSTRUAL CYCLE 01/31/2010 MADL 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, MILIND L 780.8 GENERALIZED HYPERHIDROSIS 01/31/2010 DEANNE LCMF, KENYETTA W 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 01/31/2010 DEANNE LCMF, KENYETTA W 626.4 IRREGULAR MENSTRUAL CYCLE 01/31/2010 DEANNE LCMF, KENYETTA W 780.8 GENERALIZED HYPERHIDROSIS 01/31/2010 DIANE ANGELA 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 01/31/2010 DIANE ANGELA 626.4 IRREGULAR MENSTRUAL CYCLE 01/31/2010 DIANE ANGELA 780.8 GENERALIZED HYPERHIDROSIS 02/08/2010 GUZMAN FORD DO 780.79 MALAISE AND FATIGUE 02/08/2010 GUZMAN FORD DO 787.02 NAUSEA ALONE 02/08/2010 NOEMÍ MCCLURE MD, KIARA Rebolledo 780.79 MALAISE AND FATIGUE 02/08/2010 NOEMÍ MCCLURE MD, KIARA Rebolledo 787.02 NAUSEA ALONE 02/08/2010 CARLEEN APRN, KASSY S 780.79 MALAISE AND FATIGUE 02/08/2010 CARLEEN LEE, KASSY S 787.02 NAUSEA ALONE 02/08/2010 CARLEEN LEE, KASSY S 780.79 MALAISE AND FATIGUE 02/08/2010 CARLEEN LEE, KASSY S 787.02 NAUSEA ALONE 02/08/2010 ADAM FORD DOA K 780.79 MALAISE AND FATIGUE 02/08/2010 FORD DO, GUZMAN K 787.02 NAUSEA ALONE 02/08/2010 RACIEL LEE, EVANS R 780.79 MALAISE AND FATIGUE 02/08/2010 RACIEL LEE, EVANS R 787.02 NAUSEA ALONE 02/08/2010 MICHAEL MUNIZ APRN, ALICE N 780.79 MALAISE AND FATIGUE 02/08/2010 MICHAEL MUNIZ APRN, ALICE N 787.02 NAUSEA ALONE 02/08/2010 FORD DO, GUZMAN K 780.79 MALAISE AND FATIGUE 02/08/2010 FORD DO, GUZMAN K 787.02 NAUSEA ALONE 02/08/2010 CARLEEN LEE, KASSY S 780.79 MALAISE AND FATIGUE 02/08/2010 CARLEEN LEE KASSY S 787.02 NAUSEA ALONE 02/08/2010 RODRIGUEZKARTIK MUNIZ APRN, ALICE N 780.79 MALAISE AND FATIGUE 02/08/2010 RODRIGUEZKARTIK MUNIZ APRN, ALICE N 787.02 NAUSEA ALONE 02/08/2010 RACIEL LEE, EVANS R 780.79 MALAISE AND FATIGUE 02/08/2010 RACIEL LEE EVANS R 787.02 NAUSEA ALONE 02/08/2010 FORD DO, GUZMAN K 780.79 MALAISE AND FATIGUE 02/08/2010 FORD DO, GUZMAN K 787.02 NAUSEA ALONE 02/08/2010 AR LEE, ORLY A 780.79 MALAISE AND FATIGUE 02/08/2010 AR LEE, ORLY A 787.02 NAUSEA ALONE 02/08/2010 RACIEL LEE, EVANS R 780.79 MALAISE AND FATIGUE 02/08/2010 RACIEL LEE EVANS R 787.02 NAUSEA ALONE 02/08/2010 MONTRELL MUNROE APRN 780.79 MALAISE AND FATIGUE 02/08/2010 MONTRELL MUNROE APRN 787.02 NAUSEA ALONE 02/08/2010 KENYETTA NORRIS 780.79 MALAISE AND FATIGUE 02/08/2010 KENYETTA NORRIS 787.02 NAUSEA ALONE 02/08/2010 MILIND CHU APRN 780.79 MALAISE AND FATIGUE 02/08/2010 MADL 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, MILIND L 787.02 NAUSEA ALONE 02/08/2010 DEANNE HOLCOMBMF, KENYETTA W 780.79 MALAISE AND FATIGUE 02/08/2010 DEANNE AICHAMF, KENYETTA W 787.02 NAUSEA ALONE 02/08/2010 CINTHIA HOLT, DIANE M 780.79 MALAISE AND FATIGUE 02/08/2010 CINTHIA SAMPLE TAKER OPERATOR, DIANE M 787.02 NAUSEA ALONE 05/21/2010 Ot 614.9 05/21/2010 Ot 625.9 05/21/2010 Ot 626.8 10/27/2010 FORD DO, GUZMAN K 466.0 ACUTE BRONCHITIS 10/27/2010 NOEMÍ MCCLURE MD, KIARA A 466.0 ACUTE BRONCHITIS 10/27/2010 CARLEEN 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, KASSY S 466.0 ACUTE BRONCHITIS 10/27/2010 CARLEEN 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, KASSY S 466.0 ACUTE BRONCHITIS 10/27/2010 FORD DO, GUZMAN K 466.0 ACUTE BRONCHITIS 10/27/2010 RACIEL 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, EVANS R 466.0 ACUTE BRONCHITIS 10/27/2010 RODRIGUEZ CASHERO 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, ALICE N 466.0 ACUTE BRONCHITIS 10/27/2010 FORD DO, GUZMAN K 466.0 ACUTE BRONCHITIS 10/27/2010 CARLEEN 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, KASSY S 466.0 ACUTE BRONCHITIS 10/27/2010 RODRIGUEZ CASHERO 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, ALICE N 466.0 ACUTE BRONCHITIS 10/27/2010 RACIEL 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, EVANS R 466.0 ACUTE BRONCHITIS 10/27/2010 FORD DO, GUZMAN K 466.0 ACUTE BRONCHITIS 10/27/2010 AR SARMIENTON, ORLY A 466.0 ACUTE BRONCHITIS 10/27/2010 RACIEL 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, EVANS R 466.0 ACUTE BRONCHITIS 10/27/2010 MONTRELL MUNROE APRN 466.0 ACUTE BRONCHITIS 10/27/2010 DEANNE HOLCOMBMF, KENYETTA W 466.0 ACUTE BRONCHITIS 10/27/2010 VLAD LEE, MILIND L 466.0 ACUTE BRONCHITIS 10/27/2010 DEANNE LCMF, KENYETTA W 466.0 ACUTE BRONCHITIS 10/27/2010 DIANE ANGELA M 466.0 ACUTE BRONCHITIS 12/01/2010 FORD DO, GUZMAN K 625.9 PELVIC PAIN 12/01/2010 FODR DO, GUZMAN K 784.0 HEADACHE 12/01/2010 NOEMÍ MCCLURE MD, KIARA A 625.9 PELVIC PAIN 12/01/2010 [facility] KAMI VILLANUEVA, KIARA A 784.0 HEADACHE 12/01/2010 CARLEEN 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, KASSY S 625.9 PELVIC PAIN 12/01/2010 CARLEEN 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, KASSY S 784.0 HEADACHE 12/01/2010 CARLEEN 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, KASSY S 625.9 PELVIC PAIN 12/01/2010 CARLEEN 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, KASSY S 784.0 HEADACHE 12/01/2010 FORD DO, GUZMAN K 625.9 PELVIC PAIN 12/01/2010 FORD DO, GUZMAN K 784.0 HEADACHE 12/01/2010 RACIEL 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, EVANS R 625.9 PELVIC PAIN 12/01/2010 RACIEL 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, EVANS R 784.0 HEADACHE 12/01/2010 RODRIGUEZ CASHERO 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, ALICE N 625.9 PELVIC PAIN 12/01/2010 RODRIGUEZ CASHERO 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, ALICE N 784.0 HEADACHE 12/01/2010 FORD DO, GUZMAN K 625.9 PELVIC PAIN 12/01/2010 FROD DO, GUZMAN K 784.0 HEADACHE 12/01/2010 CARLEEN 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, KASSY S 625.9 PELVIC PAIN 12/01/2010 CARLEEN 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, KASSY S 784.0 HEADACHE 12/01/2010 RODRIGUEZ CASHERO 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, ALICE N 625.9 PELVIC PAIN 12/01/2010 RODRIGUEZ CASHERO 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, ALICE N 784.0 HEADACHE 12/01/2010 RACIEL 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, EVANS R 625.9 PELVIC PAIN 12/01/2010 RACIEL 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, EVANS R 784.0 HEADACHE 12/01/2010 FORD DO, GUZMAN K 625.9 PELVIC PAIN 12/01/2010 FORD DO, GUZMAN K 784.0 HEADACHE 12/01/2010 RAJOTTE 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, ORLY A 625.9 PELVIC PAIN 12/01/2010 RAJOTTE 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, ORLY A 784.0 HEADACHE 12/01/2010 RACIEL 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, EVANS R 625.9 PELVIC PAIN 12/01/2010 RACIEL 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, EVANS R 784.0 HEADACHE 12/01/2010 MONTRELL MUNROE APRN D 625.9 PELVIC PAIN 12/01/2010 MUNROE 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, MONTRELL D 784.0 HEADACHE 12/01/2010 DEANNE LCMF, KENYETTA W 625.9 PELVIC PAIN 12/01/2010 DEANNE LCMF, KENYETTA W 784.0 HEADACHE 12/01/2010 MADL 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, MILIND L 625.9 PELVIC PAIN 12/01/2010 MADL 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, MILIND L 784.0 HEADACHE 12/01/2010 DEANNE LCMF, KENYETTA W 625.9 PELVIC PAIN 12/01/2010 DEANNE LCMF, KENYETTA W 784.0 HEADACHE 12/01/2010 CINTHIA SAMPLE TAKER OPERATOR, DIANE M 625.9 PELVIC PAIN 12/01/2010 CINTHIA SAMPLE TAKER OPERATOR, DIANE M 784.0 HEADACHE 01/30/2011 FORD DO, GUZMAN K 788.63 URINARY URGENCY 01/30/2011 FORD DO, GUZMAN K V74.5 STD SCREEN 01/30/2011 NOEMÍ MCCLURE MD, KIARA A 788.63 URINARY URGENCY 01/30/2011 NOEMÍ MCCLURE MD, KIARA A V74.5 STD SCREEN 01/30/2011 CARLEEN 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, KASSY S 788.63 URINARY URGENCY 01/30/2011 CARLEEN 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, KASSY S V74.5 STD SCREEN 01/30/2011 CARLEEN 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, KASSY S 788.63 URINARY URGENCY 01/30/2011 CARLEEN 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, KASSY S V74.5 STD SCREEN 01/30/2011 FORD DO, GUZMAN K 788.63 URINARY URGENCY 01/30/2011 FORD DO, GUZMAN K V74.5 STD SCREEN 01/30/2011 RACIEL 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, EVANS R 788.63 URINARY URGENCY 01/30/2011 RACIEL 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, EVANS R V74.5 STD SCREEN 01/30/2011 RODRIGUEZ CASHERO 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, ALICE N 788.63 URINARY URGENCY 01/30/2011 RODRIGUEZ CASHERO 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, ALICE N V74.5 STD SCREEN 01/30/2011 FORD DO, GUZMAN K 788.63 URINARY URGENCY 01/30/2011 FORD DO, GUZMAN K V74.5 STD SCREEN 01/30/2011 CARLEEN 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, KASSY S 788.63 URINARY URGENCY 01/30/2011 CARLEEN 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, KASSY S V74.5 STD SCREEN 01/30/2011 RODRIGUEZ CASHERO 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, ALICE N 788.63 URINARY URGENCY 01/30/2011 RODRIGUEZ JESSICAERO 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, ALICE N V74.5 STD SCREEN 01/30/2011 RACIEL 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, EVANS R 788.63 URINARY URGENCY 01/30/2011 RACIEL 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, EVANS R V74.5 STD SCREEN 01/30/2011 FORD DO, GUZMAN K 788.63 URINARY URGENCY 01/30/2011 FORD DO, GUZMAN K V74.5 STD SCREEN 01/30/2011 RAJOTTE 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, ORLY A 788.63 URINARY URGENCY 01/30/2011 RAJOTTE 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, ORLY A V74.5 STD SCREEN 01/30/2011 RACIEL 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, EVANS R 788.63 URINARY URGENCY 01/30/2011 RACIEL 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, EVANS R V74.5 STD SCREEN 01/30/2011 MUNROE 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MONTRELL Bill 788.63 URINARY URGENCY 01/30/2011 LUDWIG 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MONTRELL Bill V74.5 STD SCREEN 01/30/2011 DEANNE LCMF, KENYETTA Hernandez 788.63 URINARY URGENCY 01/30/2011 DEANNE LCMF, KENYETTA Hernandez V74.5 STD SCREEN 01/30/2011 MADJes 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, MILIND L 788.63 URINARY URGENCY 01/30/2011 MADL 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, MILIND L V74.5 STD SCREEN 01/30/2011 DEANNE LCMF, KENYETTA W 788.63 URINARY URGENCY 01/30/2011 DEANNE LCMF, KENYETTA Hernandez V74.5 STD SCREEN 01/30/2011 DIANE ANGELA 788.63 URINARY URGENCY 01/30/2011 DIANE ANGELA V74.5 STD SCREEN 05/26/2011 Ot 787.03 05/26/2011 Ot 789.06 05/26/2011 Ot 790.5 06/12/2011 Ot 599.0 06/12/2011 Ot 729.1 06/12/2011 Ot 787.02 06/19/2011 FORD DO GUZMAN K 535.00 ACUTE GASTRITIS (WITHOUT HEMORRHAGE) 06/19/2011 FORD DO GUMZAN K 729.1 FIBROMYALGIA 06/19/2011 FORD DO, GUZMAN K 788.1 DYSURIA 06/19/2011 NOEMÍ MCCLURE MD, KIARA A 535.00 ACUTE GASTRITIS (WITHOUT HEMORRHAGE) 06/19/2011 NOEMÍ MCCLURE MD, KIARA A 729.1 FIBROMYALGIA 06/19/2011 NOEMÍ MCCLURE MD, KIARA A 788.1 DYSURIA 06/19/2011 CARLEEN 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, KASSY S 535.00 ACUTE GASTRITIS (WITHOUT HEMORRHAGE) 06/19/2011 CARLEEN 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, KASSY S 729.1 FIBROMYALGIA 06/19/2011 CARLEEN 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, KASSY S 788.1 DYSURIA 06/19/2011 CARLEEN 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, KASSY S 535.00 ACUTE GASTRITIS (WITHOUT HEMORRHAGE) 06/19/2011 CARLEEN 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, KASSY S 729.1 FIBROMYALGIA 06/19/2011 CARLEEN 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, KASSY S 788.1 DYSURIA 06/19/2011 FORD DO, GUZMAN K 535.00 ACUTE GASTRITIS (WITHOUT HEMORRHAGE) 06/19/2011 FORD DO, GUZMAN K 729.1 FIBROMYALGIA 06/19/2011 FORD DO, GUZMAN K 788.1 DYSURIA 06/19/2011 RACIEL 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, EVANS R 535.00 ACUTE GASTRITIS (WITHOUT HEMORRHAGE) 06/19/2011 RACIEL 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, EVANS R 729.1 FIBROMYALGIA 06/19/2011 RACIEL 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, EVANS R 788.1 DYSURIA 06/19/2011 MICHAEL MUNIZ 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, ALICE N 535.00 ACUTE GASTRITIS (WITHOUT HEMORRHAGE) 06/19/2011 RODRIGUEZ CASHERO 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, ALICE N 729.1 FIBROMYALGIA 06/19/2011 RODRIGUEZ CASHERO 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, ALICE N 788.1 DYSURIA 06/19/2011 FORD DO, GUZMAN K 535.00 ACUTE GASTRITIS (WITHOUT HEMORRHAGE) 06/19/2011 FORD DO, GUZMAN K 729.1 FIBROMYALGIA 06/19/2011 FORD DO, GUZMAN K 788.1 DYSURIA 06/19/2011 CARLEEN 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, KASSY S 535.00 ACUTE GASTRITIS (WITHOUT HEMORRHAGE) 06/19/2011 CARLEEN 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, KASSY S 729.1 FIBROMYALGIA 06/19/2011 CARLEEN 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, KASSY S 788.1 DYSURIA 06/19/2011 RODRIGUEZ CASHALVAREZ 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, ALICE N 535.00 ACUTE GASTRITIS (WITHOUT HEMORRHAGE) 06/19/2011 RODRIGUEZ CRISTY 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, ALICE N 729.1 FIBROMYALGIA 06/19/2011 RODRIGUEZ CRISTY 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, ALICE N 788.1 DYSURIA 06/19/2011 RACIEL LEE, EVANS R 535.00 ACUTE GASTRITIS (WITHOUT HEMORRHAGE) 06/19/2011 RACIEL LEE, EVANS R 729.1 FIBROMYALGIA 06/19/2011 RACIEL LEE, EVANS R 788.1 DYSURIA 06/19/2011 FORD DO, GUZMAN K 535.00 ACUTE GASTRITIS (WITHOUT HEMORRHAGE) 06/19/2011 FORD DO, GUZMAN K 729.1 FIBROMYALGIA 06/19/2011 FORD DO, GUZMAN K 788.1 DYSURIA 06/19/2011 AR LEE ORLY A 535.00 ACUTE GASTRITIS (WITHOUT HEMORRHAGE) 06/19/2011 AR LEE ORLY A 729.1 FIBROMYALGIA 06/19/2011 AR LEE ORLY A 788.1 DYSURIA 06/19/2011 RACIEL LEE EVANS R 535.00 ACUTE GASTRITIS (WITHOUT HEMORRHAGE) 06/19/2011 RACIEL LEE EVANS R 729.1 FIBROMYALGIA 06/19/2011 RACIEL LEE EVANS R 788.1 DYSURIA 06/19/2011 MONTRELL MUNROE APRN 535.00 ACUTE GASTRITIS (WITHOUT HEMORRHAGE) 06/19/2011 MONTRELL MUNROE APRN 729.1 FIBROMYALGIA 06/19/2011 MONTRELL MUNROE APRN 788.1 DYSURIA 06/19/2011 KENYETTA NORRIS 535.00 ACUTE GASTRITIS (WITHOUT HEMORRHAGE) 06/19/2011 KENYETTA NORRIS 729.1 FIBROMYALGIA 06/19/2011 KENYETTA NORRIS 788.1 DYSURIA 06/19/2011 MILIND CHU APRN L 535.00 ACUTE GASTRITIS (WITHOUT HEMORRHAGE) 06/19/2011 ANN-MARIE CHU APRNA L 729.1 FIBROMYALGIA 06/19/2011 ANN-MARIE CHU APRNA L 788.1 DYSURIA 06/19/2011 KENYETTA NORRIS 535.00 ACUTE GASTRITIS (WITHOUT HEMORRHAGE) 06/19/2011 KENYETTA NORRIS 729.1 FIBROMYALGIA 06/19/2011 DEANNE BUCKNER, KENYETTA Hernandez 788.1 DYSURIA 06/19/2011 DIANE ANGELA M 535.00 ACUTE GASTRITIS (WITHOUT HEMORRHAGE) 06/19/2011 DIANE ANGELA 729.1 FIBROMYALGIA 06/19/2011 DIANE ANGELA 788.1 DYSURIA 07/19/2011 FORD DO, GUZMAN K 780.52 insomnia 07/19/2011 KIARA WILLAMS MD A 780.52 insomnia 07/19/2011 CARLEEN LEE KASSY S 780.52 insomnia 07/19/2011 CARLEEN LEE, KASSY S 780.52 insomnia 07/19/2011 FORD DO, GUZMAN K 780.52 insomnia 07/19/2011 RACIEL LEE, EVANS R 780.52 insomnia 07/19/2011 MICHAEL MUNIZ APRN ALICE N 780.52 insomnia 07/19/2011 FORD DO GUZMAN K 780.52 insomnia 07/19/2011 CARLEEN LEE KASSY S 780.52 insomnia 07/19/2011 MICHAEL MUNIZ APRN ALICE N 780.52 insomnia 07/19/2011 RACIEL LEE, EVANS R 780.52 insomnia 07/19/2011 FORD DO, GUZMAN K 780.52 insomnia 07/19/2011 AR LEE ORLY A 780.52 insomnia 07/19/2011 RACIEL LEE, EVANS R 780.52 insomnia 07/19/2011 MONTRELL MUNROE APRN 780.52 insomnia 07/19/2011 KENYETTA NORRIS 780.52 insomnia 07/19/2011 MILIND CHU APRN 780.52 insomnia 07/19/2011 DEANNE BUCKNER, KENYETTA Hernandez 780.52 insomnia 07/19/2011 DIANE ANGELA 780.52 insomnia 08/12/2011 Ot 729.1 08/13/2011 FORD DOADAMA K 724.1 PAIN IN THORACIC SPINE 08/13/2011 FORD DO GUZMAN K 729.5 PAIN IN LIMB 08/13/2011 KIARA WILLAMS MD 724.1 PAIN IN THORACIC SPINE 08/13/2011 KIARA WILLAMS MD 729.5 PAIN IN LIMB 08/13/2011 CARLEEN LEE, KASSY S 724.1 PAIN IN THORACIC SPINE 08/13/2011 CARLEENKATHY LEE KASSY S 729.5 PAIN IN LIMB 08/13/2011 CARLEENKATHY LEE KASSY S 724.1 PAIN IN THORACIC SPINE 08/13/2011 CARLEEN LEE KASSY S 729.5 PAIN IN LIMB 08/13/2011 FORD DO, GUZMAN K 724.1 PAIN IN THORACIC SPINE 08/13/2011 FORD DO, GUZMAN K 729.5 PAIN IN LIMB 08/13/2011 RACIEL LEE EVANS R 724.1 PAIN IN THORACIC SPINE 08/13/2011 RACIEL LEE EVANS R 729.5 PAIN IN LIMB 08/13/2011 MICHAEL MUNIZ APRN ALICE N 724.1 PAIN IN THORACIC SPINE 08/13/2011 MICHAEL MUNIZ APRN ALICE N 729.5 PAIN IN LIMB 08/13/2011 FORD DO, GUZMAN K 724.1 PAIN IN THORACIC SPINE 08/13/2011 FORD DO, GUZMAN K 729.5 PAIN IN LIMB 08/13/2011 CARLEEN LEE KASSY S 724.1 PAIN IN THORACIC SPINE 08/13/2011 ROXANE DURANT APRNNDA S 729.5 PAIN IN LIMB 08/13/2011 MICHAEL MUNIZ APRN ALICE N 724.1 PAIN IN THORACIC SPINE 08/13/2011 MICHAEL MUNIZ APRN ALICE N 729.5 PAIN IN LIMB 08/13/2011 RACIEL LEE EVANS R 724.1 PAIN IN THORACIC SPINE 08/13/2011 RACIEL LEE EVANS R 729.5 PAIN IN LIMB 08/13/2011 FORD DO, GUZMAN K 724.1 PAIN IN THORACIC SPINE 08/13/2011 FORD DO, GUZMAN K 729.5 PAIN IN LIMB 08/13/2011 RAJOTTE JESUS ORLY A 724.1 PAIN IN THORACIC SPINE 08/13/2011 RAJOTTE 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, ORLY A 729.5 PAIN IN LIMB 08/13/2011 RACIEL LEE EVANS R 724.1 PAIN IN THORACIC SPINE 08/13/2011 RACIEL LEE EVANS R 729.5 PAIN IN LIMB 08/13/2011 MNOTRELL MUNROE APRN 724.1 PAIN IN THORACIC SPINE 08/13/2011 MONTRELL MUNROE APRN 729.5 PAIN IN LIMB 08/13/2011 DEANNE LCMF, KENYETTA W 724.1 PAIN IN THORACIC SPINE 08/13/2011 DEANNE LCMF, KENYETTA W 729.5 PAIN IN LIMB 08/13/2011 MADL 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, MILIND L 724.1 PAIN IN THORACIC SPINE 08/13/2011 MADL 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, MILIND L 729.5 PAIN IN LIMB 08/13/2011 DEANNE LCMF, KENYETTA W 724.1 PAIN IN THORACIC SPINE 08/13/2011 DEANNE LCMF, KENYETTA W 729.5 PAIN IN LIMB 08/13/2011 DIANE ANGELA 724.1 PAIN IN THORACIC SPINE 08/13/2011 DIANE ANGELA 729.5 PAIN IN LIMB 10/05/2011 FORD DO, GUZMAN K 296.90 MOOD DISORDER 10/05/2011 LOGAN DO GUZMAN K 300.00 ANXIETY UNSPEC 10/05/2011 LOGAN DOADAMA K 719.40 ARTHRAIGIA UNSPEC 10/05/2011 FORD DO GUZMAN K 780.50 SLEEP DISTURBANCE, UNSPECIFIED 10/05/2011 KIARA WILLAMS MD A 296.90 MOOD DISORDER 10/05/2011 KIARA WILLAMS MD A 300.00 ANXIETY UNSPEC 10/05/2011 KIARA WILLAMS MD A 719.40 ARTHRAIGIA UNSPEC 10/05/2011 KIARA WILLAMS MD A 780.50 SLEEP DISTURBANCE, UNSPECIFIED 10/05/2011 CARLEEN LEE KASSY S 296.90 MOOD DISORDER 10/05/2011 CARLEEN 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, KASSY S 300.00 ANXIETY UNSPEC 10/05/2011 CARLEEN LEE, KASSY S 719.40 ARTHRAIGIA UNSPEC 10/05/2011 CARLEEN 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, KASSY S 780.50 SLEEP DISTURBANCE, UNSPECIFIED 10/05/2011 CARLEEN LEE KASSY S 296.90 MOOD DISORDER 10/05/2011 ROXANE DURANT APRNNDA S 300.00 ANXIETY UNSPEC 10/05/2011 CARLEEN 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, KASSY S 719.40 ARTHRAIGIA UNSPEC 10/05/2011 CARLEEN SARMIENTON, KASSY S 780.50 SLEEP DISTURBANCE, UNSPECIFIED 10/05/2011 FORD DO, GUZMAN K 296.90 MOOD DISORDER 10/05/2011 FODR DO, GUZMAN K 300.00 ANXIETY UNSPEC 10/05/2011 FORD DO, GUZMAN K 719.40 ARTHRAIGIA UNSPEC 10/05/2011 FORD DO, GUZMAN K 780.50 SLEEP DISTURBANCE, UNSPECIFIED 10/05/2011 RACIEL 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, EVANS R 296.90 MOOD DISORDER 10/05/2011 RACIEL 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, EVANS R 300.00 ANXIETY UNSPEC 10/05/2011 RACIEL 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, EVANS R 719.40 ARTHRAIGIA UNSPEC 10/05/2011 RACIEL 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, EVANS R 780.50 SLEEP DISTURBANCE, UNSPECIFIED 10/05/2011 RODRIGUEZ CASHALVAREZ LEE, ALICE N 296.90 MOOD DISORDER 10/05/2011 RODRIGUEZ CASHERO 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, ALICE N 300.00 ANXIETY UNSPEC 10/05/2011 RODRIGUEZ CASHERO 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, ALICE N 719.40 ARTHRAIGIA UNSPEC 10/05/2011 RODRIGUEZ CASHERO 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, ALICE N 780.50 SLEEP DISTURBANCE, UNSPECIFIED 10/05/2011 FORD DO, GUZMAN K 296.90 MOOD DISORDER 10/05/2011 FORD DO, GUZMAN K 300.00 ANXIETY UNSPEC 10/05/2011 FORD DO, GUZMAN K 719.40 ARTHRAIGIA UNSPEC 10/05/2011 FORD DO, GUZMAN K 780.50 SLEEP DISTURBANCE, UNSPECIFIED 10/05/2011 ROXANE DURANT APRNNDA S 296.90 MOOD DISORDER 10/05/2011 ROXANE DURANT APRNNDA S 300.00 ANXIETY UNSPEC 10/05/2011 CARLEEN LEE, KASSY S 719.40 ARTHRAIGIA UNSPEC 10/05/2011 CARLEEN LEE KASSY S 780.50 SLEEP DISTURBANCE, UNSPECIFIED 10/05/2011 RODRIGUEZ CASHERO 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, ALICE N 296.90 MOOD DISORDER 10/05/2011 RODRIGUEZ CASHERO 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, ALICE N 300.00 ANXIETY UNSPEC 10/05/2011 RODRIGUEZ CASHERO 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, ALICE N 719.40 ARTHRAIGIA UNSPEC 10/05/2011 RODRIGUEZ CASHERO 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, ALICE Fly 780.50 SLEEP DISTURBANCE, UNSPECIFIED 10/05/2011 RACIEL 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, EVANS R 296.90 MOOD DISORDER 10/05/2011 RACIEL 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, EVANS R 300.00 ANXIETY UNSPEC 10/05/2011 RACIEL 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, EVANS R 719.40 ARTHRAIGIA UNSPEC 10/05/2011 RACIEL 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, EVANS R 780.50 SLEEP DISTURBANCE, UNSPECIFIED 10/05/2011 FORD DO, GUZMAN K 296.90 MOOD DISORDER 10/05/2011 FORD DO, GUZMAN K 300.00 ANXIETY UNSPEC 10/05/2011 FORD DO, GUZMAN K 719.40 ARTHRAIGIA UNSPEC 10/05/2011 FORD DO, GUZMAN K 780.50 SLEEP DISTURBANCE, UNSPECIFIED 10/05/2011 AR LEE, ORLY A 296.90 MOOD DISORDER 10/05/2011 AR LEE ORLY A 300.00 ANXIETY UNSPEC 10/05/2011 AR LEE ORLY A 719.40 ARTHRAIGIA UNSPEC 10/05/2011 AR 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, ORLY A 780.50 SLEEP DISTURBANCE, UNSPECIFIED 10/05/2011 RACIEL SARMIENTON, EVANS R 296.90 MOOD DISORDER 10/05/2011 RACIEL SARMIENTON, EVANS R 300.00 ANXIETY UNSPEC 10/05/2011 RACIEL SARMIENTON, EVANS R 719.40 ARTHRAIGIA UNSPEC 10/05/2011 RACIEL LEE, EVANS R 780.50 SLEEP DISTURBANCE, UNSPECIFIED 10/05/2011 MONTRELL MUNROE APRN 296.90 MOOD DISORDER 10/05/2011 MONTRELL MUNROE APRN 300.00 ANXIETY UNSPEC 10/05/2011 MONTRELL MUNROE APRN 719.40 ARTHRAIGIA UNSPEC 10/05/2011 MONTRELL MUNROE APRN 780.50 SLEEP DISTURBANCE, UNSPECIFIED 10/05/2011 DEANNE BUCKNER, KENYETTA Hernandez 296.90 MOOD DISORDER 10/05/2011 DEANNE BUCKNER, KENYETTA Hernandez 300.00 ANXIETY UNSPEC 10/05/2011 DEANNE BUCKNER, KENYETTA Hernandez 719.40 ARTHRAIGIA UNSPEC 10/05/2011 DEANNE BUCKNER, KENYETTA Hernandez 780.50 SLEEP DISTURBANCE, UNSPECIFIED 10/05/2011 MADL FINISHER TAILOR APPRENTICE, MILIND L 296.90 MOOD DISORDER 10/05/2011 MADL FINISHER TAILOR APPRENTICE, MILIND L 300.00 ANXIETY UNSPEC 10/05/2011 MADL FINISHER TAILOR APPRENTICE, MILIND L 719.40 ARTHRAIGIA UNSPEC 10/05/2011 MADL FINISHER TAILOR APPRENTICE, MILIND L 780.50 SLEEP DISTURBANCE, UNSPECIFIED 10/05/2011 DEANNE LCMF, KENYETTA W 296.90 MOOD DISORDER 10/05/2011 DEANNE LCMF, KENYETTA W 300.00 ANXIETY UNSPEC 10/05/2011 DEANNE LCMF, KENYETTA W 719.40 ARTHRAIGIA UNSPEC 10/05/2011 DEANNE LCMF, KENYETTA W 780.50 SLEEP DISTURBANCE, UNSPECIFIED 10/05/2011 CINTHIA SAMPLE TAKER OPERATOR, DIANE M 296.90 MOOD DISORDER 10/05/2011 CINTHIA SAMPLE TAKER OPERATOR, DIANE M 300.00 ANXIETY UNSPEC 10/05/2011 CINTHIA SAMPLE TAKER OPERATOR, DIANE M 719.40 ARTHRAIGIA UNSPEC 10/05/2011 CINTHIA SAMPLE TAKER OPERATOR, DIANE M 780.50 SLEEP DISTURBANCE, UNSPECIFIED 10/14/2011 Ot 780.96 10/24/2011 FORD DO, GUZMAN K 782.0 SENSORY DISTURBANCE SKIN 10/24/2011 FORD DO, GUZMAN K 787.01 NAUSEA WITH VOMITING 10/24/2011 NOEMÍ MCCLURE MD, KIARA A 782.0 SENSORY DISTURBANCE SKIN 10/24/2011 NOEMÍ MCCLURE MD, KIARA A 787.01 NAUSEA WITH VOMITING 10/24/2011 CARLEEN SARMIENTON, KASSY S 782.0 SENSORY DISTURBANCE SKIN 10/24/2011 CARLEEN SARMIENTON, KASSY S 787.01 NAUSEA WITH VOMITING 10/24/2011 CARLEEN FINISHER TAILOR APPRENTICE, KASSY S 782.0 SENSORY DISTURBANCE SKIN 10/24/2011 CARLEEN FINISHER TAILOR APPRENTICE, KASSY S 787.01 NAUSEA WITH VOMITING 10/24/2011 FORD DO, GUZMAN K 782.0 SENSORY DISTURBANCE SKIN 10/24/2011 FORD DO, GUZMAN K 787.01 NAUSEA WITH VOMITING 10/24/2011 RACIEL SARMIENTON, EVANS R 782.0 SENSORY DISTURBANCE SKIN 10/24/2011 RACIEL SARMIENTON, EVANS R 787.01 NAUSEA WITH VOMITING 10/24/2011 RODRIGUEZ CASHERO FINISHER TAILOR APPRENTICE, ALICE N 782.0 SENSORY DISTURBANCE SKIN 10/24/2011 MICHAEL MUNIZ FINISHER TAILOR APPRENTICE, ALICE N 787.01 NAUSEA WITH VOMITING 10/24/2011 FORD DO, GUZMAN K 782.0 SENSORY DISTURBANCE SKIN 10/24/2011 FORD DO, GUZMAN K 787.01 NAUSEA WITH VOMITING 10/24/2011 CARLEEN FINISHER TAILOR APPRENTICE, KASSY S 782.0 SENSORY DISTURBANCE SKIN 10/24/2011 CARLEEN FINISHER TAILOR APPRENTICE, KASSY S 787.01 NAUSEA WITH VOMITING 10/24/2011 RODRIGUEZKARTIK MUNIZ FINISHER TAILOR APPRENTICE, ALICE N 782.0 SENSORY DISTURBANCE SKIN 10/24/2011 RODRIGUEZ CRISTY FINISHER TAILOR APPRENTICE, ALICE N 787.01 NAUSEA WITH VOMITING 10/24/2011 RACIEL LEE, EVANS R 782.0 SENSORY DISTURBANCE SKIN 10/24/2011 RACIEL FINISHER TAILOR APPRENTICE, EVANS R 787.01 NAUSEA WITH VOMITING 10/24/2011 FORD DO, GUZMAN K 782.0 SENSORY DISTURBANCE SKIN 10/24/2011 FORD DO, GUZMAN K 787.01 NAUSEA WITH VOMITING 10/24/2011 AR LEE, ORLY A 782.0 SENSORY DISTURBANCE SKIN 10/24/2011 AR LEE, ORLY A 787.01 NAUSEA WITH VOMITING 10/24/2011 RACIEL LEE, EVANS R 782.0 SENSORY DISTURBANCE SKIN 10/24/2011 RACIEL LEE, EVANS R 787.01 NAUSEA WITH VOMITING 10/24/2011 MONTRELL MUNROE APRN D 782.0 SENSORY DISTURBANCE SKIN 10/24/2011 MONTRELL MUNROE APRN D 787.01 NAUSEA WITH VOMITING 10/24/2011 DEANNE AVILAF, KENYETTA W 782.0 SENSORY DISTURBANCE SKIN 10/24/2011 DEANNE HOLCOMBMF, KENYETTA W 787.01 NAUSEA WITH VOMITING 10/24/2011 MADJes LEE, MILIND L 782.0 SENSORY DISTURBANCE SKIN 10/24/2011 MADJes LEE, MILIND L 787.01 NAUSEA WITH VOMITING 10/24/2011 DEANNE AICHAMF, KENYETTA W 782.0 SENSORY DISTURBANCE SKIN 10/24/2011 DEANNESALVATORE AVILAF, KENYETTA W 787.01 NAUSEA WITH VOMITING 10/24/2011 DIANE ANGELA 782.0 SENSORY DISTURBANCE SKIN 10/24/2011 DIANE ANGELA 787.01 NAUSEA WITH VOMITING 08/05/2012 FORD DO GUZMAN K 626.2 EXCESSIVE OR FREQUENT MENSTRUATION 08/05/2012 FODR DO GUZMAN K V76.2 CERVICAL CANCER SCREENING (PAP SMEAR) 08/05/2012 KIARA WILLAMS MD 626.2 EXCESSIVE OR FREQUENT MENSTRUATION 08/05/2012 KIARA WILLAMS MD V76.2 CERVICAL CANCER SCREENING (PAP SMEAR) 08/05/2012 CARLEEN FINISHER TAILOR APPRENTICE, KASSY S 626.2 EXCESSIVE OR FREQUENT MENSTRUATION 08/05/2012 CARLEEN FINISHER TAILOR APPRENTICE, KASSY S V76.2 CERVICAL CANCER SCREENING (PAP SMEAR) 08/05/2012 CARLEEN FINISHER TAILOR APPRENTICE, KASSY S 626.2 EXCESSIVE OR FREQUENT MENSTRUATION 08/05/2012 CARLEEN FINISHER TAILOR APPRENTICE, KASSY S V76.2 CERVICAL CANCER SCREENING (PAP SMEAR) 08/05/2012 FORD DO GUZMAN K 626.2 EXCESSIVE OR FREQUENT MENSTRUATION 08/05/2012 LOGAN MCKEON GUZMAN K V76.2 CERVICAL CANCER SCREENING (PAP SMEAR) 08/05/2012 RACIEL FINISHER TAILOR APPRENTICE, EVANS R 626.2 EXCESSIVE OR FREQUENT MENSTRUATION 08/05/2012 RACIEL FINISHER TAILOR APPRENTICE, EVANS R V76.2 CERVICAL CANCER SCREENING (PAP SMEAR) 08/05/2012 MICHAEL LOPEZERO FINISHER TAILOR APPRENTICE, ALICE N 626.2 EXCESSIVE OR FREQUENT MENSTRUATION 08/05/2012 RODRIGUEZ CASHERO FINISHER TAILOR APPRENTICE, ALICE N V76.2 CERVICAL CANCER SCREENING (PAP SMEAR) 08/05/2012 LOGAN MCKEON GUZMAN K 626.2 EXCESSIVE OR FREQUENT MENSTRUATION 08/05/2012 FORD DO GUZMAN K V76.2 CERVICAL CANCER SCREENING (PAP SMEAR) 08/05/2012 CARLEEN FINISHER TAILOR APPRENTICE, KASSY S 626.2 EXCESSIVE OR FREQUENT MENSTRUATION 08/05/2012 CARLEEN FINISHER TAILOR APPRENTICE, KASSY S V76.2 CERVICAL CANCER SCREENING (PAP SMEAR) 08/05/2012 RODRIGUEZ CASHERO FINISHER TAILOR APPRENTICE, ALICE N 626.2 EXCESSIVE OR FREQUENT MENSTRUATION 08/05/2012 RODRIGUEZ CASHERO FINISHER TAILOR APPRENTICE, ALICE N V76.2 CERVICAL CANCER SCREENING (PAP SMEAR) 08/05/2012 RACIEL FINISHER TAILOR APPRENTICE, EVANS R 626.2 EXCESSIVE OR FREQUENT MENSTRUATION 08/05/2012 RACIEL LEE, EVANS R V76.2 CERVICAL CANCER SCREENING (PAP SMEAR) 08/05/2012 FORD DOADAMA K 626.2 EXCESSIVE OR FREQUENT MENSTRUATION 08/05/2012 FORD DOGUZMAN K V76.2 CERVICAL CANCER SCREENING (PAP SMEAR) 08/05/2012 AR FINISHER TAILOR APPRENTICE, ORLY A 626.2 EXCESSIVE OR FREQUENT MENSTRUATION 08/05/2012 KATHYE FINISHER TAILOR APPRENTICE, ORLY A V76.2 CERVICAL CANCER SCREENING (PAP SMEAR) 08/05/2012 RACIEL LEE, EVANS R 626.2 EXCESSIVE OR FREQUENT MENSTRUATION 08/05/2012 RACIEL LEE, EVANS R V76.2 CERVICAL CANCER SCREENING (PAP SMEAR) 08/05/2012 MONTRELL MUNROE APRN 626.2 EXCESSIVE OR FREQUENT MENSTRUATION 08/05/2012 MONTRELL MUNROE APRN V76.2 CERVICAL CANCER SCREENING (PAP SMEAR) 08/05/2012 DEANNE BUCKNER, KENYETTA Hernandez 626.2 EXCESSIVE OR FREQUENT MENSTRUATION 08/05/2012 DEANNE BUCKNER, KENYETTA Hernandez V76.2 CERVICAL CANCER SCREENING (PAP SMEAR) 08/05/2012 MILIND CHU APRN 626.2 EXCESSIVE OR FREQUENT MENSTRUATION 08/05/2012 MILIND CHU APRN L V76.2 CERVICAL CANCER SCREENING (PAP SMEAR) 08/05/2012 DEANNE BUCKNER, KENYETTA Hernandez 626.2 EXCESSIVE OR FREQUENT MENSTRUATION 08/05/2012 KENYETTA NORRIS V76.2 CERVICAL CANCER SCREENING (PAP SMEAR) 08/05/2012 DIANE ANGELA 626.2 EXCESSIVE OR FREQUENT MENSTRUATION 08/05/2012 DIANE ANGELA V76.2 CERVICAL CANCER SCREENING (PAP SMEAR) 07/09/2013 CARLEEN LEE, KASSY S 704.00 ALOPECIA UNSPECIFIED 07/09/2013 CARLEEN LEE, KASSY S V70.0 EXAM - ROUTINE H&P 07/09/2013 CARLEEN LEE, KASSY S 704.00 ALOPECIA UNSPECIFIED 07/09/2013 CARLEEN LEE, KASSY S V70.0 EXAM - ROUTINE H&P 07/09/2013 FORD DO, GUZMAN K 704.00 ALOPECIA UNSPECIFIED 07/09/2013 FORD DO, GUZMAN K V70.0 EXAM - ROUTINE H&P 07/09/2013 RACIEL LEE, EVANS R 704.00 ALOPECIA UNSPECIFIED 07/09/2013 RACIEL SARMIENTON, EVANS R V70.0 EXAM - ROUTINE H&P 07/09/2013 RODRIGUEZ JESSICAALVAREZ FINISHER TAILOR APPRENTICE, ALICE N 704.00 ALOPECIA UNSPECIFIED 07/09/2013 RODRIGUEZ JESSICAALVAREZ FINISHER TAILOR APPRENTICE, ALICE N V70.0 EXAM - ROUTINE H&P 07/09/2013 FORD DO, GUZMAN K 704.00 ALOPECIA UNSPECIFIED 07/09/2013 FORD DO, GUZMAN K V70.0 EXAM - ROUTINE H&P 07/09/2013 CARLEEN LEE, KASSY S 704.00 ALOPECIA UNSPECIFIED 07/09/2013 CARLEEN LEE KASSY S V70.0 EXAM - ROUTINE H&P 07/09/2013 MICHAEL JESSICAALVAREZ LEE, ALICE N 704.00 ALOPECIA UNSPECIFIED 07/09/2013 RODRIGUEZ JESSICAALVAREZ LEE, ALICE N V70.0 EXAM - ROUTINE H&P 07/09/2013 RACIEL LEE, EVANS R 704.00 ALOPECIA UNSPECIFIED 07/09/2013 RACIEL LEE, EVANS R V70.0 EXAM - ROUTINE H&P 07/09/2013 FORD DO, GUZMAN K 704.00 ALOPECIA UNSPECIFIED 07/09/2013 FORD DO, GUZMAN K V70.0 EXAM - ROUTINE H&P 07/09/2013 AR LEE ORLY A 704.00 ALOPECIA UNSPECIFIED 07/09/2013 AR LEE ORLY A V70.0 EXAM - ROUTINE H&P 07/09/2013 RACIEL LEE, EVANS R 704.00 ALOPECIA UNSPECIFIED 07/09/2013 RACIEL LEE EVANS R V70.0 EXAM - ROUTINE H&P 07/09/2013 MONTRELL MUNROE APRN 704.00 ALOPECIA UNSPECIFIED 07/09/2013 MONTERLL MUNROE APRN V70.0 EXAM - ROUTINE H&P 07/09/2013 KENYETTA NORRIS 704.00 ALOPECIA UNSPECIFIED 07/09/2013 KENYETTA NORRIS V70.0 EXAM - ROUTINE H&P 07/09/2013 VLAD FINISHER TAILOR APPRENTICE, MILIND L 704.00 ALOPECIA UNSPECIFIED 07/09/2013 VLAD FINISHER TAILOR APPRENTICE, MILIND L V70.0 EXAM - ROUTINE H&P 07/09/2013 DEANNE HOLCOMBMF, KENYETTA W 704.00 ALOPECIA UNSPECIFIED 07/09/2013 DEANNE HOLCOMBF, KENYETTA Hernandez V70.0 EXAM - ROUTINE H&P 07/09/2013 CINTHIA SAMPLE TAKER OPERATOR, DIANE M 704.00 ALOPECIA UNSPECIFIED 07/09/2013 CINTHIA SAMPLE TAKER OPERATOR, DIANE M V70.0 EXAM - ROUTINE H&P 09/01/2013 CARLEEN LEE, KASSY S 354.0 CARPAL TUNNEL SYNDROME 09/01/2013 LOGAN MCKEON GUZMAN K 354.0 CARPAL TUNNEL SYNDROME 09/01/2013 RACIEL LEE, EVANS R 354.0 CARPAL TUNNEL SYNDROME 09/01/2013 MICHAEL MUNIZ APRN, ALICE N 354.0 CARPAL TUNNEL SYNDROME 09/01/2013 LOGAN MCKEON GUZMAN K 354.0 CARPAL TUNNEL SYNDROME 09/01/2013 CARLEEN LEE, KASSY S 354.0 CARPAL TUNNEL SYNDROME 09/01/2013 MICHAEL MUNIZ APRN, ALICE N 354.0 CARPAL TUNNEL SYNDROME 09/01/2013 RACIEL LEE, EVANS R 354.0 CARPAL TUNNEL SYNDROME 09/01/2013 FORD DO, GUZMAN K 354.0 CARPAL TUNNEL SYNDROME 09/01/2013 ORLY JOYNER APRN 354.0 CARPAL TUNNEL SYNDROME 09/01/2013 RACIEL LEE, EVANS R 354.0 CARPAL TUNNEL SYNDROME 09/01/2013 MONTRELL MUNROE APRN 354.0 CARPAL TUNNEL SYNDROME 09/01/2013 DEANNE HOLCOMBF, KENYETTA W 354.0 CARPAL TUNNEL SYNDROME 09/01/2013 VLAD LEE, MILIND L 354.0 CARPAL TUNNEL SYNDROME 09/01/2013 DEANNE HOLCOMBF, KENYETTA W 354.0 CARPAL TUNNEL SYNDROME 09/01/2013 CINTHIA HOLT, DIANE M 354.0 CARPAL TUNNEL SYNDROME 09/03/2013 LOGAN MCKEON GUZMAN K 733.92 CHONDROMALACIA 09/03/2013 RACIEL LEE EVANS R 733.92 CHONDROMALACIA 09/03/2013 RODRIGUEZ CASHERO FINISHER TAILOR APPRENTICE, ALICE N 733.92 CHONDROMALACIA 09/03/2013 FORD DO, GUZMAN K 733.92 CHONDROMALACIA 09/03/2013 CARLEEN LEE, KASSY S 733.92 CHONDROMALACIA 09/03/2013 MICHAEL MUNIZ FINISHER TAILOR APPRENTICE, ALICE N 733.92 CHONDROMALACIA 09/03/2013 RACIEL LEE, EVANS R 733.92 CHONDROMALACIA 09/03/2013 FORD DO, GUZMAN K 733.92 CHONDROMALACIA 09/03/2013 AR LEE, ORLY A 733.92 CHONDROMALACIA 09/03/2013 RACIEL LEE, EVANS R 733.92 CHONDROMALACIA 09/03/2013 MONTRELL MUNROE APRN 733.92 CHONDROMALACIA 09/03/2013 DEANNE LCMF, KENYETTA W 733.92 CHONDROMALACIA 09/03/2013 MILIND CHU APRN L 733.92 CHONDROMALACIA 09/03/2013 DEANNE LCMF, KENYETTA W 733.92 CHONDROMALACIA 09/03/2013 CINTHIA HOLT, DIANE M 733.92 CHONDROMALACIA 09/15/2013 RACIEL LEE, EVANS R 462 ACUTE PHARYNGITIS 09/15/2013 RACIEL LEE EVANS R 786.2 COUGH 09/15/2013 MICHAEL MUNIZ APRN, ALICE N 462 ACUTE PHARYNGITIS 09/15/2013 MICHAEL MUNIZ APRN, ALICE N 786.2 COUGH 09/15/2013 FORD DO, GUZMAN K 462 ACUTE PHARYNGITIS 09/15/2013 FORD DO, GUZMAN K 786.2 COUGH 09/15/2013 CARLEEN FINISHER TAILOR APPRENTICE, KASSY S 462 ACUTE PHARYNGITIS 09/15/2013 CARLEENKATHY LEE, KASSY S 786.2 COUGH 09/15/2013 RODRIGUEZ CASHALVAREZ FINISHER TAILOR APPRENTICE, ALICE N 462 ACUTE PHARYNGITIS 09/15/2013 RODRIGUEZ CASHALVAREZ FINISHER TAILOR APPRENTICE, ALICE N 786.2 COUGH 09/15/2013 RACIEL LEE, EVANS R 462 ACUTE PHARYNGITIS 09/15/2013 RACIEL LEE, EVANS R 786.2 COUGH 09/15/2013 FORD DO, GUZMAN K 462 ACUTE PHARYNGITIS 09/15/2013 FORD DO, GUZMAN K 786.2 COUGH 09/15/2013 RAJOTTE FINISHER TAILOR APPRENTICE, ORLY A 462 ACUTE PHARYNGITIS 09/15/2013 RAJOTTE FINISHER TAILOR APPRENTICE, ORLY A 786.2 COUGH 09/15/2013 RACIEL FINISHER TAILOR APPRENTICE, EVANS R 462 ACUTE PHARYNGITIS 09/15/2013 RACIEL FINISHER TAILOR APPRENTICE, EVANS R 786.2 COUGH 09/15/2013 MUNROE FINISHER TAILOR APPRENTICE, MONTRELL D 462 ACUTE PHARYNGITIS 09/15/2013 MUNROE FINISHER TAILOR APPRENTICE, MONTRELL D 786.2 COUGH 09/15/2013 DEANNE LCMF, KENYETTA W 462 ACUTE PHARYNGITIS 09/15/2013 DEANNE LCMF, KENYETTA W 786.2 COUGH 09/15/2013 MADL FINISHER TAILOR APPRENTICE, MILIND L 462 ACUTE PHARYNGITIS 09/15/2013 MADL FINISHER TAILOR APPRENTICE, MILIND L 786.2 COUGH 09/15/2013 DEANNE LCMF, KENYETTA W 462 ACUTE PHARYNGITIS 09/15/2013 DEANNE LCMF, KENYETTA W 786.2 COUGH 09/15/2013 CINTHIA HOLT, DIANE M 462 ACUTE PHARYNGITIS 09/15/2013 CINTHIA HOLT, DIANE M 786.2 COUGH 09/29/2013 MICHAEL MUNIZ FINISHER TAILOR APPRENTICE, ALICE N 477.9 ALLERGIC RHINITIS CAUSE UNSPECIFIED 09/29/2013 MICHAEL MUNIZ FINISHER TAILOR APPRENTICE, ALICE N 478.19 OTHER DISEASES OF NASAL CAVITY AND SINUSES 09/29/2013 FORD DO, GUZMAN K 477.9 ALLERGIC RHINITIS CAUSE UNSPECIFIED 09/29/2013 FORD DO, GUZMAN K 478.19 OTHER DISEASES OF NASAL CAVITY AND SINUSES 09/29/2013 CARLEEN FINISHER TAILOR APPRENTICE, KASSY S 477.9 ALLERGIC RHINITIS CAUSE UNSPECIFIED 09/29/2013 CARLEEN FINISHER TAILOR APPRENTICE, KASSY S 478.19 OTHER DISEASES OF NASAL CAVITY AND SINUSES 09/29/2013 RODRIGUEZ CASHERO FINISHER TAILOR APPRENTICE, ALICE N 477.9 ALLERGIC RHINITIS CAUSE UNSPECIFIED 09/29/2013 RODRIGUEZ CASHERO FINISHER TAILOR APPRENTICE, ALICE N 478.19 OTHER DISEASES OF NASAL CAVITY AND SINUSES 09/29/2013 RACIEL FINISHER TAILOR APPRENTICE, EVANS R 477.9 ALLERGIC RHINITIS CAUSE UNSPECIFIED 09/29/2013 RACIEL FINISHER TAILOR APPRENTICE, EVANS R 478.19 OTHER DISEASES OF NASAL CAVITY AND SINUSES 09/29/2013 FORD DO, GUZMAN K 477.9 ALLERGIC RHINITIS CAUSE UNSPECIFIED 09/29/2013 FORD DO, GUZMAN K 478.19 OTHER DISEASES OF NASAL CAVITY AND SINUSES 09/29/2013 RAJOTTE FINISHER TAILOR APPRENTICE, ORLY A 477.9 ALLERGIC RHINITIS CAUSE UNSPECIFIED 09/29/2013 RAJOTTE FINISHER TAILOR APPRENTICE, ORLY A 478.19 OTHER DISEASES OF NASAL CAVITY AND SINUSES 09/29/2013 RACIEL FINISHER TAILOR APPRENTICE, EVANS R 477.9 ALLERGIC RHINITIS CAUSE UNSPECIFIED 09/29/2013 RACIEL FINISHER TAILOR APPRENTICE, EVANS R 478.19 OTHER DISEASES OF NASAL CAVITY AND SINUSES 09/29/2013 MUNROE MONTRELL LEE 477.9 ALLERGIC RHINITIS CAUSE UNSPECIFIED 09/29/2013 MONTRELL MUNROE APRN 478.19 OTHER DISEASES OF NASAL CAVITY AND SINUSES 09/29/2013 KENYETTA NORRIS 477.9 ALLERGIC RHINITIS CAUSE UNSPECIFIED 09/29/2013 DEANNE AVILAF, KENYETTA W 478.19 OTHER DISEASES OF NASAL CAVITY AND SINUSES 09/29/2013 BONNYL ANN-MARIE LEEA L 477.9 ALLERGIC RHINITIS CAUSE UNSPECIFIED 09/29/2013 MADL FINISHER TAILOR APPRENTICE, MILIND L 478.19 OTHER DISEASES OF NASAL CAVITY AND SINUSES 09/29/2013 DEANNE AVILAF, KENYETTA W 477.9 ALLERGIC RHINITIS CAUSE UNSPECIFIED 09/29/2013 DEANNE AVILAF, KENYETTA W 478.19 OTHER DISEASES OF NASAL CAVITY AND SINUSES 09/29/2013 DIANE ANGELA 477.9 ALLERGIC RHINITIS CAUSE UNSPECIFIED 09/29/2013 DIANE ANGELA 478.19 OTHER DISEASES OF NASAL CAVITY AND SINUSES 11/02/2013 FORD DO, GUZMAN K 719.46 PAIN IN JOINT INVOLVING LOWER LEG 11/02/2013 KASSY DURANT APRN 719.46 PAIN IN JOINT INVOLVING LOWER LEG 11/02/2013 ALICE MARTINS APRN 719.46 PAIN IN JOINT INVOLVING LOWER LEG 11/02/2013 RACIEL SARMIENTON, EVANS R 719.46 PAIN IN JOINT INVOLVING LOWER LEG 11/02/2013 FORD DO, GUZMNA K 719.46 PAIN IN JOINT INVOLVING LOWER LEG 11/02/2013 MU JOYNER APRNYL A 719.46 PAIN IN JOINT INVOLVING LOWER LEG 11/02/2013 RACIEL LEE EVANS R 719.46 PAIN IN JOINT INVOLVING LOWER LEG 11/02/2013 MONTRELL MUNROE APRN 719.46 PAIN IN JOINT INVOLVING LOWER LEG 11/02/2013 KENYETTA NORRIS 719.46 PAIN IN JOINT INVOLVING LOWER LEG 11/02/2013 MILIND CHU APRN 719.46 PAIN IN JOINT INVOLVING LOWER LEG 11/02/2013 KENYETTA NORRIS 719.46 PAIN IN JOINT INVOLVING LOWER LEG 11/02/2013 DIANE ANGELA 719.46 PAIN IN JOINT INVOLVING LOWER LEG 12/01/2013 MICHAEL MUNIZ APRN, ALICE N 691.8 OTHER ATOPIC DERMATITIS AND RELATED CONDITIONS 12/01/2013 OMKAR MARTINS APRNCY N 698.9 UNSPECIFIED PRURITIC DISORDER 12/01/2013 RACIEL LEE, EVANS R 691.8 OTHER ATOPIC DERMATITIS AND RELATED CONDITIONS 12/01/2013 RACIEL LEE, EVANS R 698.9 UNSPECIFIED PRURITIC DISORDER 12/01/2013 FORD DO, GUZMAN K 691.8 OTHER ATOPIC DERMATITIS AND RELATED CONDITIONS 12/01/2013 FORD DO, GUZMAN K 698.9 UNSPECIFIED PRURITIC DISORDER 12/01/2013 AR LEE, ORLY A 691.8 OTHER ATOPIC DERMATITIS AND RELATED CONDITIONS 12/01/2013 AR LEE ORLY A 698.9 UNSPECIFIED PRURITIC DISORDER 12/01/2013 RACIEL LEE, EVANS R 691.8 OTHER ATOPIC DERMATITIS AND RELATED CONDITIONS 12/01/2013 RACIEL LEE EVANS R 698.9 UNSPECIFIED PRURITIC DISORDER 12/01/2013 MONTRELL MUNROE APRN 691.8 OTHER ATOPIC DERMATITIS AND RELATED CONDITIONS 12/01/2013 MONTRELL MUNROE APRN 698.9 UNSPECIFIED PRURITIC DISORDER 12/01/2013 KENYETTA NORRIS 691.8 OTHER ATOPIC DERMATITIS AND RELATED CONDITIONS 12/01/2013 KENYETTA NORRIS 698.9 UNSPECIFIED PRURITIC DISORDER 12/01/2013 BONNYL FINISHER TAILOR APPRENTICE, MILIND L 691.8 OTHER ATOPIC DERMATITIS AND RELATED CONDITIONS 12/01/2013 BONNYL FINISHER TAILOR APPRENTICE, MILIND L 698.9 UNSPECIFIED PRURITIC DISORDER 12/01/2013 DEANNE HOLCOMBIrish, KENYETTA W 691.8 OTHER ATOPIC DERMATITIS AND RELATED CONDITIONS 12/01/2013 DEANNE HOLCOMBKENYETTA Coburn 698.9 UNSPECIFIED PRURITIC DISORDER 12/01/2013 DIANE ANGELA 691.8 OTHER ATOPIC DERMATITIS AND RELATED CONDITIONS 12/01/2013 DIANE ANGELA 698.9 UNSPECIFIED PRURITIC DISORDER 12/17/2013 RACIEL FINISHER TAILOR APPRENTICE, EVANS R 112.3 CANDIDIASIS OF SKIN AND NAILS 12/17/2013 RACIEL LEE, EVANS R 388.30 TINNITUS UNSPECIFIED 12/17/2013 ADAM FORD DOA K 112.3 CANDIDIASIS OF SKIN AND NAILS 12/17/2013 ADAM FORD DOA K 388.30 TINNITUS UNSPECIFIED 12/17/2013 AR LEE ORLY A 112.3 CANDIDIASIS OF SKIN AND NAILS 12/17/2013 AR LEE, ORLY A 388.30 TINNITUS UNSPECIFIED 12/17/2013 RACIEL LEE, EVANS R 112.3 CANDIDIASIS OF SKIN AND NAILS 12/17/2013 RACIEL LEE, EVANS R 388.30 TINNITUS UNSPECIFIED 12/17/2013 MONTRELL MUNROE APRN 112.3 CANDIDIASIS OF SKIN AND NAILS 12/17/2013 MONTRELL MUNROE APRN 388.30 TINNITUS UNSPECIFIED 12/17/2013 DEANNE HOLCOMBKENYETTA Coburn 112.3 CANDIDIASIS OF SKIN AND NAILS 12/17/2013 DEANNE HOLCOMBKENYETTA Coburn W 388.30 TINNITUS UNSPECIFIED 12/17/2013 CLEMENTINA CHU APRNWNYA L 112.3 CANDIDIASIS OF SKIN AND NAILS 12/17/2013 VLAD LEE MILIND L 388.30 TINNITUS UNSPECIFIED 12/17/2013 KENYETTA NORRIS 112.3 CANDIDIASIS OF SKIN AND NAILS 12/17/2013 DEANNE HOLCOMBKENYETTA Coburn 388.30 TINNITUS UNSPECIFIED 12/17/2013 DIANE ANGEAL 112.3 CANDIDIASIS OF SKIN AND NAILS 12/17/2013 DIANE ANGELA M 388.30 TINNITUS UNSPECIFIED 12/23/2013 KASSY DURANT JAVA GROOVY DEVELOPER Ot 719.40 12/23/2013 KASSY DURANT JAVA GROOVY DEVELOPER Ot 733.92 12/23/2013 KASSY DURANT JAVA GROOVY DEVELOPER Ot V57.1 04/12/2014 RAJOTTE FINISHER TAILOR APPRENTICE, ORLY A 356.9 NEUROPATHY 04/12/2014 RAJOTTE FINISHER TAILOR APPRENTICE, ORLY A 369.9 UNSPECIFIED VISUAL LOSS 04/12/2014 RAJOTTE FINISHER TAILOR APPRENTICE, ORLY A 783.0 ANOREXIA 04/12/2014 RACIEL FINISHER TAILOR APPRENTICE, EVANS R 356.9 NEUROPATHY 04/12/2014 RACIEL FINISHER TAILOR APPRENTICE, EVANS R 369.9 UNSPECIFIED VISUAL LOSS 04/12/2014 RACIEL FINISHER TAILOR APPRENTICE, EVANS R 783.0 ANOREXIA 04/12/2014 MONTRELL MUNROE APRN D 356.9 NEUROPATHY 04/12/2014 MONTRELL MUNROE APRN D 369.9 UNSPECIFIED VISUAL LOSS 04/12/2014 MONTRELL MUNROE APRN D 783.0 ANOREXIA 04/12/2014 DEANNE LCMF, KENYETTA W 356.9 NEUROPATHY 04/12/2014 DEANNE LCMF, KENYETTA W 369.9 UNSPECIFIED VISUAL LOSS 04/12/2014 DEANNE LCMF, KENYETTA W 783.0 ANOREXIA 04/12/2014 MADL FINISHER TAILOR APPRENTICE, MILIND L 356.9 NEUROPATHY 04/12/2014 MADL FINISHER TAILOR APPRENTICE, MILIND L 369.9 UNSPECIFIED VISUAL LOSS 04/12/2014 MADL FINISHER TAILOR APPRENTICE, MILIND L 783.0 ANOREXIA 04/12/2014 DEANNE LCMF, KENYETTA W 356.9 NEUROPATHY 04/12/2014 DEANNE LCMF, KENYETTA W 369.9 UNSPECIFIED VISUAL LOSS 04/12/2014 DEANNE LCMF, KENYETTA W 783.0 ANOREXIA 04/12/2014 CINTHIA SAMPLE TAKER OPERATORDIANE M 356.9 NEUROPATHY 04/12/2014 CINTHIA SAMPLE TAKER OPERATORDIANE M 369.9 UNSPECIFIED VISUAL LOSS 04/12/2014 CINTHIA SAMPLE TAKER OPERATOR, DIANE M 783.0 ANOREXIA 04/26/2014 RAJOTTE FINISHER TAILOR APPRENTICE, ORLY A 381.81 EUSTACHIAN TUBE DYSFUNCTION 04/26/2014 RACIEL SARMIENTON, EVANS R 381.81 EUSTACHIAN TUBE DYSFUNCTION 04/26/2014 MONTRELL MUNROE APRN 381.81 EUSTACHIAN TUBE DYSFUNCTION 04/26/2014 DEANNE AICHAMF, KENYETTA W 381.81 EUSTACHIAN TUBE DYSFUNCTION 04/26/2014 VLAD FINISHER TAILOR APPRENTICE, MILIND L 381.81 EUSTACHIAN TUBE DYSFUNCTION 04/26/2014 DEANNE AICHAMF, KENYETTA W 381.81 EUSTACHIAN TUBE DYSFUNCTION 04/26/2014 DIANE ANGELA 381.81 EUSTACHIAN TUBE DYSFUNCTION 07/06/2014 RACIEL LEE, EVANS R 692.9 CONTACT DERMATITIS AND OTHER ECZEMA UNSPECIFIED CAUSE 07/06/2014 MONTRELL MUNROE APRN 692.9 CONTACT DERMATITIS AND OTHER ECZEMA UNSPECIFIED CAUSE 07/06/2014 DEANNE LCMF, KENYETTA W 692.9 CONTACT DERMATITIS AND OTHER ECZEMA UNSPECIFIED CAUSE 07/06/2014 MILIND CHU APRN L 692.9 CONTACT DERMATITIS AND OTHER ECZEMA UNSPECIFIED CAUSE 07/06/2014 DEANNE AICHAMF, KENYETTA W 692.9 CONTACT DERMATITIS AND OTHER ECZEMA UNSPECIFIED CAUSE 07/06/2014 DIANE ANGELA 692.9 CONTACT DERMATITIS AND OTHER ECZEMA UNSPECIFIED CAUSE 08/09/2014 DEANNE AVILAF, KENYETTA W 296.42 MO BIPOLAR I MANIC MODERATE 08/09/2014 MILIND CHU APRN L 296.42 MO BIPOLAR I MANIC MODERATE 08/09/2014 DEANNE AVILAF, KENYETTA W 296.42 MO BIPOLAR I MANIC MODERATE 08/09/2014 DIANE ANGELA 296.42 MO BIPOLAR I MANIC MODERATE 08/12/2014 BONNYL ANN-MARIE LEEA L 311 DEPRESSIVE DISORDER NOT ELSEWHERE CLASSIFIED 08/12/2014 DEANNE AVILAFKENYETTA 311 DEPRESSIVE DISORDER NOT ELSEWHERE CLASSIFIED 08/12/2014 DIANE ANGELA 311 DEPRESSIVE DISORDER NOT ELSEWHERE CLASSIFIED 09/07/2014 DEANNE AVILAF, KENYETTA Hernandez 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 I MIXED MODERATE 09/07/2014 DIANE ANGELA 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 I MIXED MODERATE 09/08/2014 DEANNE LCMF, KENYETTA W 296.89 MO BIPOLAR II 09/08/2014 CINTHIA HOLTDIANE M 296.89 MO BIPOLAR II 12/03/2014 Ot 368.9 12/03/2014 Ot 729.5 12/03/2014 Ot 781.2 12/03/2014 YESSENIA MILLARD FINISHER TAILOR APPRENTICE Ot 719.47 12/03/2014 YESSENIA MILLARD FINISHER TAILOR APPRENTICE Ot 845.00 12/03/2014 YESSENIA MILLARD FINISHER TAILOR APPRENTICE Ot E000.8 12/03/2014 YESSENIA MILLARD FINISHER TAILOR APPRENTICE Ot E888.9 03/15/2015 Ot 368.9 03/15/2015 Ot 729.5 03/15/2015 Ot 781.2 03/15/2015 Ot 368.9 03/15/2015 Ot 729.5 03/15/2015 Ot 781.2 11/24/2015 YESSENIA MILLARD FINISHER TAILOR APPRENTICE Ot E66.9 OBESITY, UNSPECIFIED 11/24/2015 YESSENIA MILLARD FINISHER TAILOR APPRENTICE Ot M23.91 UNSPECIFIED INTERNAL DERANGEMENT OF RIGH 11/24/2015 YESSENIA MILLARD FINISHER TAILOR APPRENTICE Ot M79.7 FIBROMYALGIA 11/24/2015 YESSENIA MILLARD FINISHER TAILOR APPRENTICE Ot R53.82 CHRONIC FATIGUE, UNSPECIFIED 11/25/2015 YESSENIA MILLARD FINISHER TAILOR APPRENTICE Ot E66.9 OBESITY, UNSPECIFIED 11/25/2015 YESSENIA MILLARD FINISHER TAILOR APPRENTICE Ot M23.91 UNSPECIFIED INTERNAL DERANGEMENT OF RIGH 11/25/2015 YESSENIA MILLARD FINISHER TAILOR APPRENTICE Ot M79.7 FIBROMYALGIA 11/25/2015 YESSENIA MILLARD FINISHER TAILOR APPRENTICE Ot R53.82 CHRONIC FATIGUE, UNSPECIFIED 12/20/2015 MADL, MILIND L JAVA GROOVY DEVELOPER Ot M17.11 UNILATERAL PRIMARY OSTEOARTHRITIS, RIGHT 12/20/2015 MADL, MILIND L JAVA GROOVY DEVELOPER Ot M25.461 EFFUSION, RIGHT KNEE 12/20/2015 MADL, MILIND L JAVA GROOVY DEVELOPER Ot M25.561 PAIN IN RIGHT KNEE 12/23/2015 MADL, MILIND L JAVA GROOVY DEVELOPER Ot M17.11 UNILATERAL PRIMARY OSTEOARTHRITIS, RIGHT 12/23/2015 MADL, MILIND L JAVA GROOVY DEVELOPER Ot M25.461 EFFUSION, RIGHT KNEE 12/23/2015 MADL, MILIND L JAVA GROOVY DEVELOPER Ot M25.561 PAIN IN RIGHT KNEE 12/26/2015 MADL, MILIND L JAVA GROOVY DEVELOPER Ot M17.11 UNILATERAL PRIMARY OSTEOARTHRITIS, RIGHT 12/26/2015 MADL, MILIND L JAVA GROOVY DEVELOPER Ot M25.461 EFFUSION, RIGHT KNEE 12/26/2015 MADL, MILIND L JAVA GROOVY DEVELOPER Ot M25.561 PAIN IN RIGHT KNEE 12/27/2015 CAESAR DAVIES MD Ot H93.19 TINNITUS, UNSPECIFIED EAR 12/30/2015 CAESAR DAVIES MD Ot H93.19 TINNITUS, UNSPECIFIED EAR 01/06/2016 KEKE VILLANUEVA, CAESAR Brock Ot H93.19 TINNITUS, UNSPECIFIED EAR 01/08/2016 YESSENIA MILLARD APRN Ot H92.01 OTALGIA, RIGHT EAR 01/08/2016 MADL, MILIND L JAVA GROOVY DEVELOPER Ot M17.11 UNILATERAL PRIMARY OSTEOARTHRITIS, RIGHT 01/08/2016 MADL, MILIND L JAVA GROOVY DEVELOPER Ot M25.461 EFFUSION, RIGHT KNEE 01/08/2016 MADL, MILIND L JAVA GROOVY DEVELOPER Ot M25.561 PAIN IN RIGHT KNEE 01/08/2016 CAESAR DAVIES MD Ot H93.19 TINNITUS, UNSPECIFIED EAR 01/10/2016 YESSENIA MILLARD APRN Ot H92.01 OTALGIA, RIGHT EAR 01/12/2016 CAESAR MAGAÑA MD Ot M23.200 DERANG OF UNSP LAT MENSC DUE TO OLD TEAR 01/12/2016 CAESAR MAGAÑA MD Ot Z01.818 ENCOUNTER FOR OTHER PREPROCEDURAL EXAMIN 01/12/2016 CAESAR MAGAÑA MD Ot Z11.2 ENCOUNTER FOR [...] DERANG OF POST HORN OF MEDIAL MENSC D/T 01/19/2016 CAESAR MAGAÑA MD Ot M22.41 CHONDROMALACIA PATELLAE, RIGHT KNEE 01/19/2016 ARCHANA VILLANUEVA, CAESAR Brock Ot M23.221 DERANG OF POST HORN OF MEDIAL MENSC D/T 04/12/2017 RESHMA WETZEL DO Ot D64.9 ANEMIA, [...] 04/16/2017 RESHMA WETZEL DO Ot Z79.899 OTHER WIRELESS WATCHER (CURRENT) DRUG THERAPY 04/25/2017 RESHMA WETZEL DO Ot D50.9 IRON DEFICIENCY ANEMIA, UNSPECIFIED 04/25/2017 RESHMA WETZEL DO Ot E66.01 MORBID (SEVERE) OBESITY DUE TO EXCESS CA 04/25/2017 RESHMA WETZEL DO Ot F17.210 NICOTINE DEPENDENCE, CIGARETTES, UNCOMPL 04/25/2017 RESHMA WETZEL DO Ot F31.9 BIPOLAR DISORDER, UNSPECIFIED 04/25/2017 RESHMA WETZEL DO Ot F43.10 POST-TRAUMATIC STRESS DISORDER, UNSPECIF 04/25/2017 DAMARI MCKEON RESHMA D Ot J45.909 UNSPECIFIED ASTHMA, UNCOMPLICATED 04/25/2017 RESHMA WETZEL DO Nabila Ot K21.9 GASTRO-ESOPHAGEAL REFLUX DISEASE WITHOUT 04/25/2017 DAMARI MCKEON RESHMA Nabila Ot M79.7 FIBROMYALGIA 04/25/2017 DAMARI MCKEONRESHMA Ot Z68.43 BODY MASS INDEX (BMI) 50-59.9 , ADULT 04/25/2017 DAMARI MCKEON RESHMA D Ot Z79.899 OTHER [facility] (CURRENT) DRUG THERAPY 05/10/2017 YESSENIA MILLARD APRN [...] APRN Ot R07.81 PLEURODYNIA 05/13/2017 YESSENIA MILLARD FINISHER TAILOR APPRENTICE Ot R07.89 OTHER CHEST PAIN 05/13/2017 YESSENIA MILLARD FINISHER TAILOR APPRENTICE Ot Z87.891 PERSONAL HISTORY OF NICOTINE DEPENDENCE 05/13/2017 YESSENIA MILLARD FINISHER TAILOR APPRENTICE Ot Z98.51 TUBAL LIGATION STATUS 06/09/2017 TODD VAZQUEZ Ot F31.9 BIPOLAR DISORDER, UNSPECIFIED 06/09/2017 TODD VAZQUEZ Ot F41.9 ANXIETY DISORDER, UNSPECIFIED 06/09/2017 TODD VAZQUEZ Ot F43.10 POST-TRAUMATIC STRESS DISORDER, UNSPECIF 06/09/2017 TODD VAZQUEZ Ot G62.9 POLYNEUROPATHY, UNSPECIFIED 06/09/2017 TODD VAZQUEZ Ot J45.909 UNSPECIFIED ASTHMA, UNCOMPLICATED 06/09/2017 TODD VAZQUEZ Ot K08.89 OTHER SPECIFIED DISORDERS OF TEETH AND S 06/09/2017 TODD VAZQUEZ Ot K21.9 GASTRO-ESOPHAGEAL REFLUX DISEASE WITHOUT 06/09/2017 TODD VAZQUEZ Ot M19.90 UNSPECIFIED OSTEOARTHRITIS, UNSPECIFIED 06/09/2017 TODD VAZQUEZ Ot R11.0 NAUSEA 06/09/2017 TODD VZAQUEZ Ot Z87.891 PERSONAL HISTORY OF NICOTINE DEPENDENCE 06/09/2017 TODD VAZQUEZ Ot Z98.51 TUBAL LIGATION STATUS 06/09/2017 TODD VAZQUEZ Ot Z98.818 OTHER DENTAL PROCEDURE STATUS 06/10/2017 TODD VAZQUEZ Ot F31.9 BIPOLAR DISORDER, UNSPECIFIED 06/10/2017 TODD VAZQUEZ Ot F41.9 ANXIETY DISORDER, UNSPECIFIED 06/10/2017 TODD VAZQUEZ Ot F43.10 POST-TRAUMATIC STRESS DISORDER, UNSPECIF 06/10/2017 TODD VAZQUEZ Ot G62.9 POLYNEUROPATHY, UNSPECIFIED 06/10/2017 TODD VAZQUEZ Ot J45.909 UNSPECIFIED ASTHMA, UNCOMPLICATED 06/10/2017 TODD VAZQUEZ Ot K08.89 OTHER SPECIFIED DISORDERS OF TEETH AND S 06/10/2017 TODD VAZQUEZ Ot K21.9 GASTRO-ESOPHAGEAL REFLUX DISEASE WITHOUT 06/10/2017 TODD VAZQUEZ Ot M19.90 UNSPECIFIED OSTEOARTHRITIS, UNSPECIFIED 06/10/2017 TODD VAZQUEZ Ot R11.0 NAUSEA 06/10/2017 TODD VAZQUEZ Ot Z87.891 PERSONAL HISTORY OF NICOTINE DEPENDENCE 06/10/2017 TODD VAZQUEZ Ot Z98.51 TUBAL LIGATION STATUS 06/10/2017 TODD VAZQUEZ Ot Z98.818 OTHER DENTAL PROCEDURE STATUS 07/09/2017 MARCO ANTONIO HINES MD Ot N92.1 EXCESSIVE AND FREQUENT MENSTRUATION WITH 07/09/2017 MARCO ANTONIO HINES MD Ot R68.2 DRY MOUTH, UNSPECIFIED 07/09/2017 MARCO ANTONIO HINES MD Ot R76.8 OTHER SPECIFIED ABNORMAL IMMUNOLOGICAL F 08/22/2017 ANJELICA PERDUE MD Ot N93.9 ABNORMAL UTERINE AND VAGINAL BLEEDING, U 08/22/2017 ANJELICA PERDUE MD Ot N94.6 DYSMENORRHEA, UNSPECIFIED 08/22/2017 ANJELICA PERDUE MD Ot N93.9 ABNORMAL UTERINE AND VAGINAL BLEEDING, U 08/22/2017 ANJELICA PERDUE MD Ot N94.6 DYSMENORRHEA, UNSPECIFIED 02/24/2018 ALEX HUTCHINSON FINISHER TAILOR APPRENTICE Ot G60.3 IDIOPATHIC PROGRESSIVE NEUROPATHY 02/24/2018 ALEX HUTCHINSON APRN Ot M54.12 RADICULOPATHY, CERVICAL REGION 03/06/2018 ALEX HUTCHINSON FINISHER TAILOR APPRENTICE Ot G60.3 IDIOPATHIC PROGRESSIVE NEUROPATHY 03/06/2018 ALEX HUTCHINSON FINISHER TAILOR APPRENTICE Ot M54.12 RADICULOPATHY, CERVICAL REGION 03/07/2018 ROSHAN WEBBER DO Ot F39 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] DISORDER 03/07/2018 ROSHAN WEBBER DO Ot G47.10 HYPERSOMNIA, UNSPECIFIED 03/10/2018 ROSHAN WEBBER DO Ot F39 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] DISORDER 03/10/2018 ROSHAN WEBBER DO Ot G47.10 HYPERSOMNIA, UNSPECIFIED 03/10/2018 ROSHAN EWBBER DO Ot F39 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] DISORDER 03/10/2018 ROSHAN WEBBER DO Ot G47.10 HYPERSOMNIA, UNSPECIFIED Procedures Code Description [place] [address] ROUTINE VENIPUNCTURE 08/05/2012 18793 [facility] 08/05/2012 96741 HIV ANTIBODIES (RML) 08/05/2012 69617 CULTURE UROGENITAL 08/05/2012 23184 GC/[facility]LAM PROBE ([facility]) 08/05/2012 01680 TRICHOMONAS (IN-HOUSE) 08/05/2012 12565 PAP SMEAR 08/05/2012 Q0091 PAP SMEAR OBTAIN SMEAR 08/05/2012 63252 ROUTINE VENIPUNCTURE 07/09/2013 84542 XRAY KNEE RIGHT 3 VIEWS 07/09/2013 Orthopedi Montrell Munroe 07/09/2013 04467 A1C (IN-HOUSE) 07/09/2013 98655 CBC 07/09/2013 3880863 GFR CALC (RESULT ONLY) 07/09/2013 87670 CMP 07/09/2013 11075 LIPID PANEL 07/09/2013 95472 TSH 07/09/2013 55829 JOINT INJECTION- LARGE JOINT (SPECIFY MEDCIN DESCRIPTION) 09/03/2013 J1040 DEPO MEDROL 80 MG INJ 09/29/2013 36532 THERAPUTIC INJ SQ/IM 09/29/2013 81078 THERAPUTIC INJ SQ/IM 12/01/2013 J1040 DEPO MEDROL 80 MG INJ 12/01/2013 47748 JOINT INJECTION- LARGE JOINT (SPECIFY MEDCIN DESCRIPTION) 01/07/2014 26318 CERUMEN REMOVAL 04/30/2014 79055 PSYCH DIAGNOSTIC EVALUATION 08/09/2014 03570 A1C (IN-HOUSE) 08/12/2014 75149 PSYTX PT&/FAMILY 45 MINUTES 09/28/2014 66611 PSYCH DIAGNOSTIC EVALUATION 10/01/2014 Results Test Result Range Comp. Metabolic Panel (14) - 07/19/16 13:19 Glucose, Serum 94 mg/dL 65-99 BUN 9 mg/dL 6-20 Creatinine, Serum 0.82 mg/dL 0.57-1.00 eGFR If NonAfricn Am 93 mL/min/1.73 >59 eGFR If Africn Am 107 mL/min/1.73 >59 BUN/Creatinine Ratio 11 8-20 Sodium, Serum 139 mmol/L 134-144 Potassium, Serum 4.6 mmol/L 3.5-5.2 Chloride, Serum 100 mmol/L 96-106 Carbon Dioxide, Total 24 mmol/L 18-29 Calcium, Serum 9.0 mg/dL 8.7-10.2 Protein, Total, Serum 6.9 g/dL 6.0-8.5 Albumin, Serum 4.0 g/dL 3.5-5.5 Globulin, Total 2.9 g/dL 1.5-4.5 A/G Ratio 1.4 1.1-2.5 Bilirubin, Total 0.2 mg/dL 0.0-1.2 Alkaline Phosphatase, S 90 IU/L 39-117 AST (SGOT) 28 IU/L 0-40 ALT (SGPT) 35 IU/L 0-32 TSH - 07/19/16 13:19 TSH 2.610 uIU/mL 0.450-4.500 Vitamin D, 25-Hydroxy - 07/19/16 13:19 Vitamin D, 25-Hydroxy 13.0 ng/mL 30.0-100.0 Comp. Metabolic Panel () - 01/23/17 14:28 Glucose, Serum 118 mg/dL 65-99 BUN 13 mg/dL 6-20 Creatinine, Serum 1.05 mg/dL 0.57-1.00 eGFR If NonAfricn Am 69 mL/min/1.73 >59 eGFR If Africn Am 80 mL/min/1.73 >59 BUN/Creatinine Ratio 12 9-23 Sodium, Serum 141 mmol/L 134-144 Potassium, Serum 4.7 mmol/L 3.5-5.2 Chloride, Serum 102 mmol/L 96-106 Carbon Dioxide, Total 19 mmol/L 18-29 Calcium, Serum 9.4 mg/dL 8.7-10.2 Protein, Total, Serum 7.2 g/dL 6.0-8.5 Albumin, Serum 4.2 g/dL 3.5-5.5 Globulin, Total 3.0 g/dL 1.5-4.5 A/G Ratio 1.4 1.2-2.2 Bilirubin, Total 0.3 mg/dL 0.0-1.2 Alkaline Phosphatase, S 76 IU/L 39-117 AST (SGOT) 24 IU/L 0-40 ALT (SGPT) 23 IU/L 0-32 Vitamin D, 25-Hydroxy - 01/23/17 14:28 Vitamin D, 25-Hydroxy 27.8 ng/mL 30.0-100.0 Vitamin B12 - 01/23/17 14:28 Vitamin B12 538 pg/mL 211-946 Magnesium, Serum - 01/23/17 14:28 Magnesium, Serum 2.2 mg/dL 1.6-2.3 Urine Culture, Routine - 02/20/17 16:28 Urine Culture, Routine Note CULTURE, URINE - 02/20/17 16:28 Urine Culture, Routine Final report NRG Result 1 No growth NRG CMP - 03/26/17 11:13 Glucose, Serum 99 mg/dL 65-99 BUN 14 mg/dL 6-20 Creatinine, Serum 0.86 mg/dL 0.57-1.00 eGFR If NonAfricn Am 88 mL/min/1.73 >59 eGFR If Africn Am 101 mL/min/1.73 >59 BUN/Creatinine Ratio 16 9-23 Sodium, Serum 142 mmol/L 134-144 Potassium, Serum 4.4 mmol/L 3.5-5.2 Chloride, Serum 102 mmol/L 96-106 Carbon Dioxide, Total 25 mmol/L 18-29 Calcium, Serum 8.9 mg/dL 8.7-10.2 Protein, Total, Serum 6.7 g/dL 6.0-8.5 Albumin, Serum 4.0 g/dL 3.5-5.5 Globulin, Total 2.7 g/dL 1.5-4.5 A/G Ratio 1.5 1.2-2.2 Bilirubin, Total <0.2 mg/dL 0.0-1.2 Alkaline Phosphatase, S 85 IU/L 39-117 AST (SGOT) 15 IU/L 0-40 ALT (SGPT) 16 IU/L 0-32 Comp. Metabolic Panel (14) - 03/26/17 11:13 Glucose, Serum 99 mg/dL 65-99 BUN 14 mg/dL 6-20 Creatinine, Serum 0.86 mg/dL 0.57-1.00 eGFR If NonAfricn Am 88 mL/min/1.73 >59 eGFR If Africn Am 101 mL/min/1.73 >59 BUN/Creatinine Ratio 16 9-23 Sodium, Serum 142 mmol/L 134-144 Potassium, Serum 4.4 mmol/L 3.5-5.2 Chloride, Serum 102 mmol/L 96-106 Carbon Dioxide, Total 25 mmol/L 18-29 Calcium, Serum 8.9 mg/dL 8.7-10.2 Protein, Total, Serum 6.7 g/dL 6.0-8.5 Albumin, Serum 4.0 g/dL 3.5-5.5 Globulin, Total 2.7 g/dL 1.5-4.5 A/G Ratio 1.5 1.2-2.2 Bilirubin, Total <0.2 mg/dL 0.0-1.2 Alkaline Phosphatase, S 85 IU/L 39-117 AST (SGOT) 15 IU/L 0-40 ALT (SGPT) 16 IU/L 0-32 CMP - 11/28/17 13:59 GLUCOSE 92 mg/dL 65-99 UREA NITROGEN (BUN) 8 mg/dL 7-25 CREATININE 0.83 mg/dL 0.50-1.10 eGFR NON-AFR. SLOVENIAN 91 mL/min/1.73m2 > OR=60 eGFR 105 mL/min/1.73m2 > OR=60 BUN/CREATININE RATIO NOT APPLICABLE (calc) 6-22 SODIUM 140 mmol/L 135-146 POTASSIUM 4.0 mmol/L 3.5-5.3 CHLORIDE 108 mmol/L 98-110 CARBON DIOXIDE 24 mmol/L 20-31 CALCIUM 9.2 mg/dL 8.6-10.2 PROTEIN, TOTAL 6.9 g/dL 6.1-8.1 ALBUMIN 4.0 g/dL 3.6-5.1 GLOBULIN 2.9 g/dL (calc) 1.9-3.7 ALBUMIN/GLOBULIN RATIO 1.4 (calc) 1.0-2.5 BILIRUBIN, TOTAL 0.5 mg/dL 0.2-1.2 ALKALINE PHOSPHATASE 76 U/L 33-115 AST 11 U/L 10-30 ALT 10 U/L 6-29 A1C - 11/28/17 13:59 HEMOGLOBIN A1c 5.6 % of total Hgb <5.7 VITAMIN D, 1,25 DIHYDROXY LC/MS/MS - 11/28/17 13:59 VITAMIN D, 1,25 (OH)2, TOTAL TNP NRG VITAMIN D, 25-H - 12/05/17 12:28 VITAMIN D,25-OH,TOTAL,IA 19 ng/mL 30-100 TSH - 12/20/17 12:37 TSH 1.38 mIU/L NRG VITAMIN D, 25-H - 04/21/18 14:27 VITAMIN D,25-OH,TOTAL,IA 13 ng/mL 30-100 Protime - 05/09/18 13:08 INR 1.1 1.0-4.0 Protime 12.3 Sec 9.9-12.8 Test-Serum - 05/14/18 07:20 Preg Test-S Negative Negative Surgical Pathology - 05/14/18 08:10 Surg Path Sent to [facility] Vitamin B7 - 06/02/18 12:59 Vitamin B7 0.07 ng/mL 0.05-0.83 Ferritin - 06/02/18 12:59 Ferritin 7.34 ng/mL 4.63-204.00 VIT B-12 - 06/02/18 12:59 Vitamin B12 274.00 pg/mL 213.00-816.00 MRSA Screen - 06/02/18 12:59 FINAL CULTURE RESULTS MRSA Negative Nasal Culture MEDIA PLATED Setup at 13:21 on 06/02/2018 Selenium, Serum or Plasma - 06/02/18 12:59 SELENIUM, SERUM/PLASMA 115 UG/L 91-198 Vitamin B7 (Biotin) - 06/02/18 12:59 VITAMIN B7 0.07 NG/ML 0.05-0.83 Vitamin B3 (Niacin) - 06/02/18 12:59 NICOTINAMIDE 8.8 NG/ML 5.2-72.1 NICOTINIC ACID <5.0 NG/ML 0.0-5.0 Vitamin B3 (Niacin+Metabolite) - 06/02/18 12:59 Nicotinamide 8.8 ng/mL 5.2-72.1 Nicotinic Acid <5.0 ng/mL 0.0-5.0 Vitamin B1 (Thiamine), Blood - 06/02/18 12:59 Vit. B1, Whole Blood 86.8 nmol/L 66.5-200.0 TYPE/SCREEN - 06/10/18 07:33 ABO/RH O POSITIVE ANTIBODY SCREEN NEGATIVE Urinalysis - 06/10/18 09:01 Icotest N/A Negative Urine Volume Urine Volume Insufficient (<10mL) May Affect Microscopic Exam Urine-Appearance Clear Clear Urine-Bacteria Negative Urine-Bilirubin Negative Negative Urine-Blood Trace-intact Negative Urine-Color Yellow Colorless-Lt. Yellow Urine-Epithelial Cells 0-5/HPF Urine-Glucose Negative Negative Urine-Ketones Negative Negative Urine-Leukocytes Negative Negative Urine-Nitrite Negative Negative Urine-Other Culture to follow Urine-pH 6.0 5-8.5 Urine-Protein Negative Negative Urine-RBC Rare/HPF Urine-Specific [place] 1.025 1.000-1.030 Urine-WBC Negative Urobilinogen 0.2 E.U./dL 0.2-1.0 Urine Culture - 06/10/18 09:01 PRELIM CULTURE RESULTS No Growth 24 hours CULTURE SOURCE cath Urine Culture - 06/10/18 09:01 PRELIM CULTURE RESULTS No Growth 24 hours FINAL CULTURE RESULTS No Growth 48 hours CULTURE SOURCE cath [facility] - 06/10/18 17:35 Anion Gap 15 6-14 BUN 8 mg/dL 5-25 Calcium 8.3 mg/dL 8.3-10.4 Chloride 108 mmol/L 95-114 CO2 17 mEq/L 22-33 Creat 0.86 mg/dL 0.50-1.50 eGFR 74 mL/min/1.73m2 >59 Glucose 132 mg/dL 70-110 Osmo 281 280-295 Potassium 4.2 mmol/L 3.5-5.3 Sodium 136 mmol/L 134-148 [facility] - 06/11/18 06:42 Anion Gap 12 6-14 BUN 5 mg/dL 5-25 Calcium 8.5 mg/dL 8.3-10.4 Chloride 108 mmol/L 95-114 CO2 23 mEq/L 22-33 Creat 0.84 mg/dL 0.50-1.50 eGFR 76 mL/min/1.73m2 >59 Glucose 122 mg/dL 70-110 Osmo 286 280-295 Potassium 3.7 mmol/L 3.5-5.3 Sodium 139 mmol/L 134-148 [facility] - 06/14/18 16:41 Anion Gap 14 6-14 BUN 7 mg/dL 5-25 Calcium 9.1 mg/dL 8.3-10.4 Chloride 103 mmol/L 95-114 CO2 25 mEq/L 22-33 Creat 0.83 mg/dL 0.50-1.50 eGFR 77 mL/min/1.73m2 >59 Glucose 82 mg/dL 70-110 Osmo 284 280-295 Potassium 3.4 mmol/L 3.5-5.3 Sodium 139 mmol/L 134-148 Encounters ACCT No. Visit Date/Time Discharge Status Pt. Type Provider Facility Loc./Unit Complaint [id number] 09/28/2014 11:03:00 09/28/2014 23:59:59 CLS Outpatient DEANNE LCMF, KENYETTA Hernandez [id number] 09/08/2014 10:00:00 09/08/2014 23:59:59 CLS Outpatient DIANE ANGELA [id number] 08/12/2014 14:01:00 08/12/2014 23:59:59 CLS Outpatient MILIND CHU APRN [id number] 08/09/2014 13:05:00 08/09/2014 23:59:59 CLS Outpatient DEANNE LCMKENYETTA Coburn [id number] 07/08/2014 13:35:00 07/08/2014 23:59:59 CLS Outpatient LUDWIG LEE MONTRELL Dahl [id number] 07/06/2014 16:39:00 07/06/2014 23:59:59 CLS Outpatient EVANS SCHRADER APRN [id number] 04/26/2014 14:30:00 04/26/2014 23:59:59 CLS Outpatient ORLY JOYNER APRN [id number] 01/07/2014 13:53:00 01/07/2014 23:59:59 CLS Outpatient GUZMAN FORD DO [id number] 12/17/2013 09:35:00 12/17/2013 23:59:59 CLS Outpatient EVANS SCHRADER APRN [id number] 12/01/2013 08:04:00 12/01/2013 23:59:59 CLS Outpatient RODRIGUEZ CRISTY SARMIENTOFly ALICE N [id number] 11/10/2013 15:47:00 11/10/2013 23:59:59 CLS Outpatient KASSY DURANT APRN [id number] 11/05/2013 12:30:00 11/05/2013 23:59:59 CLS Outpatient GUZMAN FORD DO [id number] 09/29/2013 10:30:00 09/29/2013 23:59:59 CLS Outpatient RODRIGUEZ CRISTY SARMIENTOFly ALICE N [id number] 09/15/2013 15:51:00 09/15/2013 23:59:59 CLS Outpatient EVANS SCHRADER APRN [id number] 09/03/2013 15:05:00 09/03/2013 23:59:59 CLS Outpatient GUZMAN FORD DO [id number] 09/01/2013 13:44:00 09/01/2013 23:59:59 CLS Outpatient CARLEENKATHY LEE KASSY Marvin [id number] 07/09/2013 12:12:00 07/09/2013 23:59:59 CLS Outpatient CARLEEN LEE KASSY Wong [id number] 10/01/2012 07:56:00 10/01/2012 23:59:59 CLS Outpatient KIARA WILLAMS MD [id number] 08/05/2012 10:40:00 08/05/2012 23:59:59 CLS Outpatient LOGAN GUZMAN Araceli [id number] 07/20/2016 13:05:00 Document Registration [id number] 01/24/2017 09:09:00 Document Registration [id number] 02/21/2017 22:07:00 Document Registration [id number] 06/06/2018 14:18:00 Document Registration [id number] 06/14/2018 15:58:00 06/14/2018 20:25:00 [id number]/10/2018 06:57:00 06/11/2018 20:35:00 DIS Inpatient Lawanda, [facility] ICU [id number] 06/02/2018 12:37:00 06/02/2018 23:59:00 DIS Outpatient Roshan Webber [id number] 05/14/2018 06:55:00 05/14/2018 08:50:00 DIS Outpatient Roshan Webber [id number] 05/09/2018 12:37:00 05/09/2018 23:59:00 DIS Outpatient Roshan Webber [id number] 04/10/2018 10:43:00 04/10/2018 23:59:00 DIS Outpatient Roshan Webber [id number] 05/13/2018 09:10:35 Document Registration [id number] 03/07/2018 08:50:00 03/07/2018 09:20:00 DIS Outpatient ROSHAN WEBBER DO [facility] SLEEP EDS, AM HEADACHE , MOOD DISORDER [id number] 03/06/2018 11:15:00 03/06/2018 12:08:00 DIS Outpatient ALEX HUTCHINSON APRN [facility] REHAB NEUROPATHY; BACK PAIN [id number] 08/06/2017 12:28:00 08/06/2017 23:59:59 CLS Outpatient ANJELICA PERDUE MD [facility] RAD ABN UTERINE BLEEDING [id number] 06/25/2017 12:22:00 06/25/2017 23:59:59 CLS Outpatient MARCO ANTONIO HINES MD [facility] RAD R76.8 POSITIVE JOSE [id number] 06/08/2017 20:02:00 06/09/2017 00:50:00 DIS Emergency TODD VAZQUEZ [facility] ER TOOTH INFECTION,NAUSEA , STOMACH PAIN [id number] 05/10/2017 13:13:00 05/10/2017 13:59:00 DIS Emergency YESSENIA MILLARD APRN [facility] ER LT RIB PAIN [id number] 04/16/2017 10:14:00 04/16/2017 13:00:00 DIS Outpatient RESHMA WETZEL DO [facility] ENDO HX OF ANEMIA [id number] 04/12/2017 05:30:00 04/12/2017 11:33:00 DIS Outpatient RESHMA WETZEL DO [facility] PREOP HX OF ANEMIA [id number] 01/18/2016 11:38:00 01/18/2016 16:00:00 DIS Outpatient CAESAR MAAGÑA MD [facility] SDC RIGHT TORN MENISCUS [id number] 01/12/2016 14:19:00 01/12/2016 15:00:00 DIS Outpatient CAESAR MAGAÑA MD [facility] PREOP RIGHT TORN MENISCUS [id number] 01/08/2016 10:33:00 01/08/2016 10:54:00 DIS Emergency YESSENIA MILLARD APRN [facility] ER [id number] 12/26/2015 09:03:00 12/26/2015 23:59:59 CLS Outpatient CAESAR DAVIES MD [facility] RAD [id number] 12/09/2015 17:10:00 12/09/2015 23:59:59 CLS Outpatient MILIND CHU [facility] RAD [id number] 11/24/2015 21:52:00 11/24/2015 23:13:00 DIS Emergency FREEMAN YESSENIA Hong 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 [facility] ER [id number] 12/03/2014 11:06:00 12/03/2014 13:32:00 DIS Emergency FREEMAN YESSENIA Hong 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 APPRENTICE [facility] ER [id number] 12/03/2013 08:00:00 12/23/2013 16:46:00 DIS Outpatient KASSY DURANT JAVA GROOVY DEVELOPER [facility] REHAB [id number] 02/09/2013 08:55:00 02/09/2013 23:59:59 CLS Outpatient [id number] 12/03/2014 11:04:00 Document Registration [id number] 12/03/2014 11:04:00 Document Registration [id number] 10/15/2011 12:24:00 Document Registration [id number] 10/14/2011 18:07:00 Document Registration [id number] 08/12/2011 17:18:00 Document Registration [id number] 05/26/2011 18:09:00 Document Registration [id number] 12/12/2009 14:32:00 Document Registration [id number] 05/19/2018 14:00:00 05/19/2018 23:59:59 CLS Outpatient ALEX HUTCHINSON [facility] [id number] 04/21/2018 13:20:00 Document Registration [id number] 12/20/2017 11:40:00 Document Registration [id number] 12/05/2017 12:40:00 Document Registration [id number] 11/28/2017 13:20:00 Document Registration [id number] 03/26/2017 10:00:00 Document Registration [id number] 02/20/2017 14:00:00 Document Registration [id number] 03/27/2017 08:44:00 Document Registration [id number] 06/10/2018 06:57:00 Document Registration [id number] 06/06/2018 14:18:00 Document Registration
--- NOTE | 2018-06-15 19:28 | ED Syncope ---
General Chief Complaint: Dizziness/Syncope Stated Complaint: DIZZY Nursing Triage Note: weakness after gastric bypass sx. Source of Information: Patient Exam Limitations: No Limitations History of Present Illness Date Seen by Provider: Jun 15, 2018 Time Seen by Provider: 18:55 Allergies and Home Medications Allergies Coded Allergies: meperidine (Unverified Allergy, Mild, SWELLING, 12/12/09) gabapentin (Verified Allergy, Unknown, 11/24/15) naproxen (Verified Allergy, Unknown, NAUSEA, 01/12/16) pregabalin (Verified Allergy, Unknown, 11/24/15) venlafaxine (Verified Allergy, Unknown, 11/24/15) Past Zugytwc-Ejsbnr-Wzsluw Hx Patient Social History Alcohol Use: Denies Use Number of Drinks Today: Alcohol Beverage of Choice: Wine Recreational Drug Use: No Smoking Status: Former Smoker Type Used: Cigarettes Former Smoker, Quit: Apr 29, 2015 2nd Hand Smoke Exposure: No Recent Foreign Travel: No Contact w/Someone Who Travel: No Recent Infectious Disease Expo: No Recent Hopitalizations: Yes Immunizations Up To Date Tetanus Booster (TDap): Unknown Date of Influenza Vaccine: Aug 10, 2011 Seasonal Allergies Seasonal Allergies: Yes Past Medical History Surgeries: Yes (leep procedure, R knee scope, EGD, COLONOSCOPY, gastric bypass) Gallbladder, Tubal Ligation Respiratory: Yes (excercised induced asthma) Asthma Currently Using CPAP: No Currently Using BIPAP: No Cardiac: No Neurological: Yes Neuropathy : No 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 Disorders: No Female 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 Disorders: Denies 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 Sexually Transmitted Disease: No Genitourinary: No Gastrointestinal: Yes Gastroesophageal Reflux Musculoskeletal: Yes (osteoarthritis, chronic fatique syndrome) Arthritis, Fibromyalgia, Chronic Back Pain Endocrine: No Tinnitis Hearing Impairment: Deaf Cancer: No Psychosocial: Yes (mood disorder) Anxiety, PTSD, Bipolar, Depression Integumentary: Yes Eczema, Pruritis Blood Disorders: No Physical Exam Vital Signs Vital Signs - First Documented 06/15/18 18:54 Temp 97.1 Pulse 73 Resp 16 B/P (MAP) 126/76 (93) Pulse Ox 100 O2 Delivery Room Air Capillary Refill : Less Than 3 Seconds Height, Weight, BMI Height: 5'6.50" Weight: 345lbs. 0.0oz. 156.485306xf; 53.3 BMI Method:Stated Progress/Results/Core Measures Results/Orders Lab Results Laboratory Tests Test 12/16/18 19:10 06/15/18 20:32 Range/Units White Blood Count 8.2 4.3-11.0 10^3/uL Red Blood Count 4.19 L 4.35-5.85 10^6/uL Hemoglobin 9.9 L 11.5-16.0 G/DL Hematocrit 31 L 35-52 % Mean Corpuscular Volume 74 L 80-99 FL Mean Corpuscular Hemoglobin 24 L 25-34 PG Mean Corpuscular Hemoglobin Concent 32 32-36 G/DL Red Cell Distribution Width 16.2 H 10.0-14.5 % Platelet Count 328 130-400 10^3/uL Mean Platelet Volume 10.6 H 7.4-10.4 FL Neutrophils (%) (Auto) 62 42-75 % Lymphocytes (%) (Auto) 27 12-44 % Monocytes (%) (Auto) 8 0-12 % Eosinophils (%) (Auto) 3 0-10 % Basophils (%) (Auto) 0 0-10 % Neutrophils # (Auto) 5.1 1.8-7.8 X 10^3 Lymphocytes # (Auto) 2.2 1.0-4.0 X 10^3 Monocytes # (Auto) 0.7 0.0-1.0 X 10^3 Eosinophils # (Auto) 0.3 0.0-0.3 10^3/uL Basophils # (Auto) 0.0 0.0-0.1 10^3/uL Sodium Level 139 135-145 MMOL/L Potassium Level 3.5 L 3.6-5.0 MMOL/L Chloride Level 105 98-107 MMOL/L Carbon Dioxide Level 23 21-32 MMOL/L Anion Gap 11 5-14 MMOL/L Blood Urea Nitrogen 6 L 7-18 MG/DL Creatinine 0.83 0.60-1.30 MG/DL Estimat Glomerular Filtration Rate > 60 BUN/Creatinine Ratio 7 Glucose Level 90 70-105 MG/DL Calcium Level 9.2 8.5-10.1 MG/DL Corrected Calcium 9.5 8.5-10.1 MG/DL Total Bilirubin 0.3 0.1-1.0 MG/DL Aspartate Amino Transf (AST/SGOT) 19 5-34 U/L Alanine Aminotransferase (ALT/SGPT) 36 0-55 U/L Alkaline Phosphatase 70 40-136 U/L Total Protein 6.7 6.4-8.2 GM/DL Albumin 3.6 3.2-4.5 GM/DL Urine Color STRAW Urine Clarity CLEAR Urine pH 6.5 5-9 Urine Specific [place] 1.005 L 1.016-1.022 Urine Protein 1+ H NEGATIVE Urine Glucose (UA) NEGATIVE NEGATIVE Urine Ketones 2+ H NEGATIVE Urine Nitrite NEGATIVE NEGATIVE Urine Bilirubin NEGATIVE NEGATIVE Urine Urobilinogen NORMAL NORMAL MG/DL Urine Leukocyte Esterase 2+ H NEGATIVE Urine RBC (Auto) 5+ H NEGATIVE Urine RBC 50-100 H /HPF Urine WBC 10-25 H /HPF Urine Squamous Epithelial Cells 2-5 /HPF Urine Renal Epithelial Cells NONE /HPF Urine Crystals NONE /LPF Urine Bacteria FEW H /HPF Urine Casts NONE /LPF Urine Mucus NEGATIVE /LPF Urine Culture Indicated YES My Orders Orders - ADDIS LATHAM Comprehensive Metabolic Panel (06/15/18 19:04) Ua Culture If Indicated (06/15/18 19:04) Saline Lock/Iv-Start (06/15/18 19:04) Cbc With Automated Diff (06/15/18 19:04) Ns Iv 1000 Ml (Sodium Chloride 0.9%) (06/15/18 19:15) Ekg Tracing (06/15/18 19:04) Ns Iv 1000 Ml (Sodium Chloride 0.9%) (06/15/18 20:00) Urine Culture (06/15/18 20:32) Vital Signs/I&O 06/15/18 06/15/18 18:54 21:04 Temp 97.1 97.0 Pulse 73 70 Resp 16 16 B/P (MAP) 126/76 (93) 134/76 (95) Pulse Ox 100 97 O2 Delivery Room Air Room Air Blood Pressure Mean: 93 Departure Impression Primary Impression: Vertigo Disposition: 01 HOME, SELF-CARE Condition: Stable/Unchanged Departure-Patient Inst. Decision time for Depature: 20:03 Referrals: ALEX HUTCHINSON APRN (PCP) Primary Care Physician [facility] (Family) Primary Care Physician Patient Instructions: Vertigo (a Type of Dizziness) (DC) Add. Discharge Instructions: You may use meclizine [id number] as directed the bottle. Follow-up with Dr. Webber first thing tomorrow morning by calling for an appointment time. Return back to the emergency room for any worsening symptoms or concerns as needed. All discharge instructions reviewed with patient and/or family. Voiced understanding. ADDIS LATHAM Jun 15, 2018 19:28
[2018-06-15 19:36] LABS: ALANINE AMINOTRANSFERASE 36 U/L (0-55); ALBUMIN 3.6 GM/DL (3.2-4.5); ALKALINE PHOSPHATASE 70 U/L (40-136); BILIRUBIN,TOTAL 0.3 MG/DL (0.1-1.0); BUN/CREATININE RATIO 7; CALCIUM 9.2 MG/DL (8.5-10.1); CARBON DIOXIDE 23 MMOL/L (21-32); CHLORIDE 105 MMOL/L (98-107); CREATININE SERUM 0.83 MG/DL (0.60-1.30); GFR ESTIMATED > 60; GLUCOSE 90 MG/DL (70-105); POTASSIUM 3.5 MMOL/L (3.6-5.0); SODIUM 139 MMOL/L (135-145); TOTAL PROTEIN 6.7 GM/DL (6.4-8.2)
[2018-06-15 20:47] LABS: BILIRUBIN,URINE NEGATIVE (NEGATIVE); CLARITY,URINE CLEAR; GLUCOSE, URINE (UA) NEGATIVE (NEGATIVE); KETONES,URINE 2+ (NEGATIVE); LEUKOCYTE ESTERASE ,URINE 2+ (NEGATIVE); NITRITE,URINE NEGATIVE (NEGATIVE); PH,URINE 6.5 (5-9); PROTEIN,URINE 1+ (NEGATIVE); UROBILINOGEN,URINE NORMAL (NORMAL)
[2018-06-15 21:02] LABS: BACTERIA,URINE FEW /HPF; COLOR,URINE STRAW; RBC,URINE 50-100 /HPF
[2018-06-15 21:04] VITALS: BP 134/76
== END 2018-06-15 21:04 | disposition home or self-care (01) ==
LOC: EDUNIT# 18:53 → ER 18:53
DX: R42 Dizziness and giddiness (principal); J45.909 Unspecified asthma, uncomplicated; K21.9 Gastro-esophageal reflux disease without esophagitis; F41.9 Anxiety disorder, unspecified; F43.10 Post-traumatic stress disorder, unspecified; F31.9 Bipolar disorder, unspecified; Z88.8 Allergy status to other drugs, medicaments and biological substances; Z87.891 Personal history of nicotine dependence; Z98.51 Tubal ligation status; Z98.890 Other specified postprocedural states; Z98.84 Bariatric surgery status
CPT/HCPCS: 36415; 80053; 81000; 85025; 87088; 93005

== ENCOUNTER 2019-03-20 13:03 | Emergency (ER) | payer MEDICAID | END 2019-03-20 15:09 | disposition home or self-care (01) | LOC: ER 13:03 ==

== ENCOUNTER 2019-09-13 20:28 | Emergency (ER) | payer MEDICAID ==
[~2019-09-13] VITALS: Ht 169 cm; Wt 111.0 kg
[~2019-09-13 20:28] MED LIST changes: +ACHD5005; +AMIT25TA9; +CETI-265; +ERGO50006; +HYDR15SO6; +OMEP40CA27; +OMEP40CA27 PO; -OMEP40CA36 PO; +ONDA4SOL11; +ROPI0.5T4; +TIZA4TAB4; -TRAM50TA2 PO; +TRM50T PO
[2019-09-13 20:32] VITALS: BP 144/93
[2019-09-13] MEDS ORDERED: LIDOCAINE 1% INJ 20 ML 20 ML VIAL INJ ONE (20:45)
--- NOTE | 2019-09-13 20:48 | ED Upper Extremity ---
General Chief Complaint: Laceration Stated Complaint: HAND LAC History of Present Illness Date Seen by Provider: Sep 13, 2019 Time Seen by Provider: 20:30 Initial Comments 39-year-old -Polish female presents for a laceration to her left hand s econd finger. She cut it earlier today at approximately 1400 with a knife, while cutting vegetables. She went to [facility] where it was irrigated and then wound adhesive was used. She went to work and the wound dehisced. She was given a tetanus vaccine at [facility]. Wound adhesive no longer present. Onset: this afternoon Pain/Injury Location: left 2nd finger Method of Injury: incised Allergies and Home Medications Allergies Coded Allergies: meperidine (Unverified Allergy, Mild, SWELLING, 12/12/09) gabapentin (Verified Allergy, Unknown, 11/24/15) naproxen (Verified Allergy, Unknown, NAUSEA, 01/12/16) pregabalin (Verified Allergy, Unknown, 11/24/15) venlafaxine (Verified Allergy, Unknown, 11/24/15) Home Medications Cephalexin 500 Mg Tablet, 500 MG PO TID Prescribed by: CAMRON HOWELL on 09/13/192109 Patient Home Medication List Home Medication List Reviewed: Yes Review of Systems Constitutional: no symptoms reported, see HPI Skin: see HPI, other (laceration left second finger) All Other Systems Reviewed Negative Unless Noted: Yes Past Zgoixlk-Nogkhu-Ghekgs Hx Past Med/Social Hx: Reviewed Nursing Past Med/Soc Hx Patient Social History Alcohol Beverage of Choice: Wine Type Used: Cigarettes Former Smoker, Quit: Apr 29, 2015 2nd Hand Smoke Exposure: No Recent Foreign Travel: No Contact w/Someone Who Travel: No Recent Hopitalizations: Yes (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) Immunizations Up To Date Tetanus Booster (TDap): Unknown Date of Influenza Vaccine: Aug 10, 2011 Seasonal Allergies Seasonal Allergies: Yes Past Medical History Surgeries: Yes (leep procedure, R knee scope, EGD, COLONOSCOPY, gastric bypass) Gallbladder, Tubal Ligation Respiratory: Yes (excercised induced asthma) Asthma Currently Using CPAP: No Currently Using BIPAP: No Cardiac: No Neurological: Yes Neuropathy 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 Disorders: No Female 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 Disorders: 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 Sexually Transmitted Disease: No Genitourinary: No Gastrointestinal: Yes Gastroesophageal Reflux Musculoskeletal: Yes (osteoarthritis, chronic fatique syndrome) Arthritis, Fibromyalgia, Chronic Back Pain Endocrine: No Tinnitis Hearing Impairment: Deaf Cancer: No Psychosocial: Yes (mood disorder) Anxiety, PTSD, Bipolar, Depression Integumentary: Yes Eczema, Pruritis Blood Disorders: No Physical Exam Vital Signs Vital Signs - First Documented 09/13/19 20:32 Temp 36.6 Pulse 108 Resp 16 B/P (MAP) 144/93 (110) Pulse Ox 99 O2 Delivery Room Air Capillary Refill : Height, Weight, BMI Height: 5'6.50" Weight: 345lbs. 0.0oz. 156.811664qy; 46.00 BMI Method:Stated General Appearance: WD/WN, no apparent distress Cardiovascular: normal peripheral pulses, regular rate, rhythm Respiratory: chest non-tender, lungs clear, normal breath sounds Hand: Left, laceration (2 cm over DIP joint, dorsum ) Neurologic/Psychiatric: no motor/sensory deficits, alert, normal mood/affect, oriented x 3 Skin: normal color, warm/dry Procedures/Interventions Wound Location: Upper Extremities (left index finger) Wound Length (cm): 2 Wound's Depth, Shape: superficial Wound Explored: clean Irrigated w/ Saline (ccs): 500 Betadine Prep?: Yes Anesthesia: 1% Lidocaine Volume Anesthetic (ccs): 3 Suture: Ethlion Suture Size: 4-0 Number of Sutures: 3 Sterile Dressing Applied?: Yes Progress Wound well approximated, bulky sterile dressing applied. Patient tolerated procedure well. Progress/Results/Core Measures Results/Orders My Orders Orders - CAMRON HOWELL Lidocaine 1% Inj 20 Ml (Xylocaine 1% Inj (09/13/19 20:45) Cephalexin Capsule (Keflex Capsule) (09/13/19 21:13) Medications Given in ED Current Medications Medications Dose Ordered Sig/Colleen Route Start Time Stop Time Status Last Admin Dose Admin Lidocaine HCl 20 ml ONCE ONCE INJ 09/13/19 20:45 09/13/19 20:46 DC 09/13/19 21:03 20 ML Vital Signs/I&O 09/13/19 20:32 Temp 36.6 Pulse 108 Resp 16 B/P (MAP) 144/93 (110) Pulse Ox 99 O2 Delivery Room Air Departure Impression Primary Impression: Laceration of finger of left hand Qualified Codes: S61.211A - Laceration without foreign body of left index finger without damage to nail, initial encounter Disposition: 01 HOME, SELF-CARE Condition: Improved Departure-Patient Inst. Decision time for Depature: 21:05 Referrals: GUZMAN FORD DO (PCP) Primary Care Physician ALEX HUTCHINSON APRN (Family) Primary Care Physician Patient Instructions: Laceration Repair With Stitches (DC) Add. Discharge Instructions: Keep left index finger clean and dry, leave the current dressing on until Saturday. You may shower on and get the finger wet, but don't aim water directly at it. Do not submerge the left index finger in standing water (sink, bathtub, hot tub, pool, etc.) Return to the emergency department or [facility] in 7-10 days to have her sutures removed. Take antibiotics, as prescribed. Ice and elevate left index finger for 20 minutes if you have swelling or throbbing pain. You may alternate between Tylenol 650 mg and ibuprofen 600 mg every 4 hours for pain or discomfort. Keep the wound covered with a Band-Aid when out of your home, he may leave it open to air when at home. Return to the emergency department for discolored drainage, increased pain, increased redness, or other signs of infection. All discharge instructions reviewed with patient and/or family. Voiced understanding. Scripts Cephalexin (Cephalexin) 500 Mg Tablet 500 MG PO TID, #15 TAB 0 Refills Prov: CAMRON HOWELL 09/13/19 Copy Copies To 1: GUZMAN FODR AMY ARNP Sep 13, 2019 20:48
[2019-09-13] MEDS ORDERED: CEPH500T PO (21:10)
[2019-09-13] MEDS ORDERED: CEPHALEXIN 250 MG (KEFLEX) CAP PO STA (21:13)
== END 2019-09-13 21:22 | disposition home or self-care (01) ==
LOC: EDUNIT# 20:28 → ER 20:29
DX: S61.211A Laceration without foreign body of left index finger without damage to nail, initial encounter (principal); Z87.891 Personal history of nicotine dependence; Z88.5 Allergy status to narcotic agent; Z88.6 Allergy status to analgesic agent; Z88.8 Allergy status to other drugs, medicaments and biological substances; W26.0XXA Contact with knife, initial encounter
CPT/HCPCS: 12001

== ENCOUNTER 2019-10-30 11:43 | Emergency (ER) | payer MEDICAID ==
[~2019-10-30] VITALS: Ht 172.7 cm; Wt 104.3 kg
[~2019-10-30 11:43] MED LIST changes: +CEPH500T PO
[2019-10-30] MEDS ORDERED: PRD20T PO (12:01)
--- NOTE | 2019-10-30 12:02 | ED General ---
General Chief Complaint: General Problems/Pain Stated Complaint: R HAND AND BILAT KNEE PAIN Source of Information: Patient Exam Limitations: No Limitations History of Present Illness Date Seen by Provider: October 30, 2019 Time Seen by Provider: 11:58 Initial Comments To ER with bilateral knee and right wrist pain. Recently developed Insidious onset of swelling right wrist. No known injury. The right knee pain is attributed to osteoarthritis she states as she used to be very overweight. 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 No fever no chills. Timing/Duration: 1-2 Days Severity: Moderate Allergies and Home Medications Allergies Coded Allergies: meperidine (Unverified Allergy, Mild, SWELLING, 12/12/09) gabapentin (Verified Allergy, Unknown, 11/24/15) naproxen (Verified Allergy, Unknown, NAUSEA, 01/12/16) pregabalin (Verified Allergy, Unknown, 11/24/15) venlafaxine (Verified Allergy, Unknown, 11/24/15) Home Medications Cephalexin 500 Mg Tablet, 500 MG PO TID Prescribed by: CAMRON HOWELL on 09/13/192109 Patient Home Medication List Home Medication List Reviewed: Yes Review of Systems Review of Systems Constitutional: see HPI EENTM: see HPI Respiratory: no symptoms reported Cardiovascular: no symptoms reported Genitourinary: no symptoms reported Musculoskeletal: see HPI, joint pain Skin: no symptoms reported Psychiatric/Neurological: No Symptoms Reported Hematologic/Lymphatic: No Symptoms Reported Past Bjlospb-Snptrs-Hrwduc Hx Patient Social History Alcohol Beverage of Choice: Wine Type Used: Cigars Former Smoker, Quit: Apr 29, 2015 2nd Hand Smoke Exposure: Yes Recent Foreign Travel: No Contact w/Someone Who Travel: No Recent Hopitalizations: Yes (OUT 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 SURG) Immunizations Up To Date Tetanus Booster (TDap): Less than 5yrs Date of Influenza Vaccine: Aug 10, 2011 Seasonal Allergies Seasonal Allergies: Yes Past Medical History Surgeries: Yes (leep procedure, R knee scope, EGD, COLONOSCOPY, gastric bypass) Gallbladder, Tubal Ligation Respiratory: Yes (excercised induced asthma) Asthma Currently Using CPAP: No Currently Using BIPAP: No Cardiac: No Neurological: Yes Neuropathy 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 Disorders: No Female 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 Disorders: Denies 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 0.0oz. [phone]; 38.00 BMI Method:Stated General Appearance: No Apparent Distress, WD/WN Eyes: Bilateral Eye Normal Inspection, Bilateral Eye PERRL, Bilateral Eye EOMI HEENT: PERRL/EOMI, TMs Normal Neck: Full Range of Motion, Normal Inspection Respiratory: No Accessory Muscle Use, No Respiratory Distress Cardiovascular: Regular Rate, Rhythm, Normal Peripheral Pulses Gastrointestinal: Non Tender, Soft Extremity: Normal Capillary Refill, Normal Inspection Neurologic/Psychiatric: Alert, Oriented x3 Skin: Normal Color, Warm/Dry Procedures/Interventions Suture Size: 4-0 Progress/Results/Core Measures Suspected Sepsis SIRS Temperature: Pulse: Respiratory Rate: Blood Pressure / Mean: Results/Orders My Orders Orders - YESSENIA MILLARD APRN Knee, 3 Views, Bilateral (10/30/19 11:53) Vital Signs/I&O Capillary Refill : Departure Impression Primary Impression: Osteoarthritis Qualified Codes: M19.90 - Unspecified osteoarthritis, unspecified site Disposition: HOME, SELF-CARE Condition: Stable Departure-Patient Inst. Decision time for Depature: 12:00 Referrals: [facility] (PCP/Family) Primary Care Physician Patient Instructions: Osteoarthritis Add. Discharge Instructions: 1. Steroids as directed 2. Return to ER for any concerns 3. Follow-up with your doctor next week All discharge instructions reviewed with patient and/or family. Voiced understanding. Scripts Prednisone (Prednisone) 20 Mg Tab 40 MG PO DAILY, #8 TAB 0 Refills Prov: YESSENIA MILLARD APRN 10/30/19 Work/School Note: Work Release Form Date Seen in the Emergency Department: October 30, 2019 Return to Work: November 01, 2019 YESSENIA MILLARD APRN October 30, 2019 12:01
[2019-10-30 12:19] VITALS: BP 132/88
--- NOTE | 2019-10-30 12:22 | Diagnostic Imaging Report ---
INDICATION: Bilateral knee pain, worse on the left side. TIME OF EXAM: 12:12 p.m. TECHNIQUE: Three views of each knee were obtained. FINDINGS: Both knees demonstrate moderate medial compartmental degenerative change with joint space narrowing and marginal spurring. Lateral compartments are well maintained. There is mild patellofemoral joint degenerative change bilaterally. No fracture or dislocation is seen. No definite joint effusion is identified. IMPRESSION: Bilateral degenerative changes. No acute bony abnormality is detected. Dictated by: Dictated on workstation # [id number]
== END 2019-10-30 12:19 | disposition home or self-care (01) ==
LOC: EDUNIT# 11:43 → ER 11:45
DX: M17.0 Bilateral primary osteoarthritis of knee (principal); M19.031 Primary osteoarthritis, right wrist; Z88.5 Allergy status to narcotic agent; Z88.6 Allergy status to analgesic agent; Z88.8 Allergy status to other drugs, medicaments and biological substances; Z87.891 Personal history of nicotine dependence

== ENCOUNTER 2021-03-07 11:06 | Emergency (ER) | payer MEDICAID ==
[~2021-03-07] VITALS: Ht 172 cm; Wt 127.0 kg
[~2021-03-07 11:06] MED LIST changes: -ACYC400T PO; +ACYC400T21 PO; -OMEP40CA27; -OMEP40CA27 PO; +OMEP40CA6; +OMEP40CA6 PO; +PRD20T PO
[2021-03-07] MEDS ORDERED: METH4TAB10 PO (12:02)
--- NOTE | 2021-03-07 12:02 | ED Integumentary General ---
General Chief Complaint: Allergic Reaction Stated Complaint: RASH Nursing Triage Note: ARRIVED VIA AMB TO [facility] WITH COMPLAINTS OF A RASH. 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 Source: patient Exam Limitations: no limitations History of Present Illness Date Seen by Provider: Mar 07, 2021 Time Seen by Provider: 11:25 Initial Comments 40-year-old female with past medical history of being JOSE positive and this chronic intermittent rash coming in due to worsening of the rash. She says it has been going on for quite some time and she follows with an retail greeting card merchandiser as well as coin purse assembler. She has an appointment with her retail greeting card merchandiser in 2 days. She has appointment with a concessionist coming up because they want to do a biopsy of the rash. She has had 2 rounds of steroids in the past couple months and every time she is on the steroids it does go away. She otherwise has been very consistent with allergens and has been avoiding anything that could potentially make this flare. Denies any mucosal involvement, genital involvement, hand/feet involvement, fever, vomiting, abdominal pain, chest pain, shortness of breath, or any other concerns. Allergies and Home Medications Allergies Coded Allergies: meperidine (Unverified Allergy, Mild, SWELLING, 12/12/09) gabapentin (Verified Allergy, Unknown, 11/24/15) naproxen (Verified Allergy, Unknown, NAUSEA, 01/12/16) pregabalin (Verified Allergy, Unknown, 11/24/15) venlafaxine (Verified Allergy, Unknown, 11/24/15) Patient Home Medication List Home Medication List Reviewed: Yes Amitriptyline HCl (Amitriptyline HCl) 25 Mg Tablet, (Reported) Entered as Reported by: JONI WELLINGTON on 06/15/181901 Cephalexin (Cephalexin) 500 Mg Tablet, 500 MG PO TID Prescribed by: CAMRON HOWELL on 09/13/192109 Hydrocodone Bit/Acetaminophen (Lortab 7.5-325 Mg/15 Ml Udc) 118 Ml Solution, (Reported) Entered as Reported by: JONI WELLINGTON on 06/15/181901 Hydrocodone Bit/Acetaminophen (Lortab 5 Mg Tablet) 1 Each Tablet, (Reported) Entered as Reported by: NICK LATHAM on 03/20/19 1337 Omeprazole (Omeprazole) 40 Mg Capsule., (Reported) Entered as Reported by: NICK LATHAM on 03/20/19 1337 Ondansetron HCl (Ondansetron HCl) 4 Mg/5 Ml Solution, (Reported) Entered as Reported by: JONI WELLINGTON on 06/15/18 190 Prednisone (Prednisone) 20 Mg Tab, 40 MG PO DAILY Prescribed by: YESSENIA MILLARD on 10/30/19 1201 Ropinirole HCl (Ropinirole HCl) 0.5 Mg Tablet, (Reported) Entered as Reported by: NICK LATHAM on 03/20/19 1337 Tizanidine HCl (Tizanidine HCl) 4 Mg Tablet, (Reported) Entered as Reported by: NICK LATHAM on 03/20/19 1337 Review of Systems Review of Systems Constitutional: No chills, No fever EENTM: No blurred vision Respiratory: No cough, No short of breath Cardiovascular: No chest pain Gastrointestinal: No abdominal pain, No nausea, No vomiting Genitourinary: No dysuria Musculoskeletal: No back pain Skin: rash Psychiatric/Neurological: No Symptoms Reported Endocrine: No Symptoms Reported Hematologic/Lymphatic: No Symptoms Reported All Other Systems Reviewed Negative Unless Noted: Yes Past Estzbew-Bdnogq-Cmyuzk Hx Patient Social History Smoking Status: Current Everyday Smoker Substance use?: No Alcohol Use?: No Immunizations Up To Date Tetanus Booster (TDap): Less than 5yrs First/Initial COVID19 Vaccinat: 02/15/21 COVID19 Vaccine [facility] Seasonal Allergies Seasonal Allergies: Yes Past Medical History Surgeries: Yes (leep procedure, R knee scope, EGD, COLONOSCOPY, gastric bypass) Gallbladder, Tubal Ligation Respiratory: Yes (excercised induced asthma) Asthma Currently Using CPAP: No Currently Using BIPAP: No Cardiac: No Neurological: Yes Neuropathy 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 Disorders: No 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 Sexually Transmitted Disease: No Genitourinary: No Gastrointestinal: Yes Gastroesophageal Reflux Musculoskeletal: Yes (osteoarthritis, chronic fatique syndrome) Arthritis, Fibromyalgia, Chronic Back Pain Endocrine: No Tinnitis Hearing Impairment: Deaf Cancer: No Psychosocial: Yes (mood disorder) Anxiety, PTSD, Bipolar, Depression Integumentary: Yes Eczema, Pruritis Blood Disorders: No Physical Exam Vital Signs Vital Signs - First Documented 03/07/21 11:25 Temp 36.3 Pulse 80 Resp 16 B/P (MAP) 135/80 (98) Pulse Ox 100 O2 Delivery Room Air Capillary Refill : Less Than 3 Seconds General Appearance: WD/WN, no apparent distress HEENT: PERRL/EOMI, normal ENT inspection, pharynx normal Neck: non-tender, full range of motion, supple, normal inspection Cardiovascular: regular rate, rhythm, no edema, no murmur Respiratory: chest non-tender, lungs clear, normal breath sounds, no respiratory distress, no accessory muscle use Gastrointestinal: normal bowel sounds, non tender, soft; No distended, No guard ing, No rebound Back: normal inspection, no CVA tenderness, no vertebral tenderness Extremities: normal range of motion, non-tender, normal inspection, no pedal edema, no calf tenderness, normal capillary refill Neurologic/Psychiatric: no motor/sensory deficits, alert, normal mood/affect Skin: normal color, warm/dry Skin Problem Location: other (Papular blanching rash. There are areas mostly along the arms, neck, behind ears, no mucosal involvement, Nikolsky negative) Lymphatic: no adenopathy Procedures/Interventions Suture Size: 4-0 Progress/Results/Core Measures Results/Orders Vital Signs/I&O 03/07/21 11:25 Temp 36.3 Pulse 80 Resp 16 B/P (MAP) 135/80 (98) Pulse Ox 100 O2 Delivery Room Air Blood Pressure Mean: 98 Progress Progress Note : Progress Note 40-year-old female with above history coming in due to rash. ABCs were intact and vitals were stable on presentation. She does not have any red flags with this rash such as no fever, mucosal involvement, Nikolsky negative, no hand or foot involvement, and otherwise she is well-appearing. This has been a chronic rash has been going on for months and she sees multiple specialist for. Steroids have helped in the past, and we will send a Medrol Dosepak. It does not appear superinfected over the rash. She has follow-up with her specialist in 2 days. She was discharged home in stable condition with strict return precautions. Departure Impression Primary Impression: Rash Disposition: 01 HOME, SELF-CARE Condition: Stable Departure-Patient Inst. Decision time for Depature: 12:01 Referrals: [facility] (PCP/Family) Primary Care Physician Patient Instructions: Skin Rash Add. Discharge Instructions: You are seen in the emergency department for rash. This is not have any red flags as any rash that is life-threatening. This likely is related to allergies versus a rheumatologic cause. Please continue follow-up with your retail greeting card merchandiser, coin purse assembler, and concessionist. You likely will need a biopsy of this rash. If you have any fever, your skin started sloughing off with light pressure, or you have any involvement of the rash with your eyes or lips, then please come to the emergency department. All discharge instructions reviewed with patient and/or family. Voiced understanding. Scripts Methylprednisolone (Methylprednisolone Dose Pack) 4 Mg Tab.ds.pk 4 MG PO UD for 6 Days, #21 PKG PER DOSE PACK INSTRUCTIONS Prov: ANGELINE RENDON MD 03/07/21 ANGELINE RENDON MD Mar 07, 2021 12:01
[2021-03-07 12:29] VITALS: BP 135/80
== END 2021-03-07 12:29 | disposition home or self-care (01) ==
LOC: EDUNIT# 11:06 → ER 11:08
DX: R21 Rash and other nonspecific skin eruption (principal); F41.9 Anxiety disorder, unspecified; F31.9 Bipolar disorder, unspecified; M79.7 Fibromyalgia; K21.9 Gastro-esophageal reflux disease without esophagitis; J45.909 Unspecified asthma, uncomplicated; F17.200 Nicotine dependence, unspecified, uncomplicated; Z79.52 Long term (current) use of systemic steroids; Z79.899 Other long term (current) drug therapy
CPT/HCPCS: 99281

== ENCOUNTER 2021-12-16 08:27 | Emergency (ER) | payer MEDICAID ==
[~2021-12-16] VITALS: Ht 172 cm; Wt 129.0 kg
[~2021-12-16 08:27] MED LIST changes: +CYCL10TA25 PO; +METH4TAB10 PO; +TIZA-186; -TIZA4TAB4
[2021-12-16 08:53] VITALS: BP 126/85
--- NOTE | 2021-12-16 09:18 | ED General ---
General Chief Complaint: Cough/Cold/Flu Symptoms Stated Complaint: SORE THROAT- CHILLS- CONGESTION Source of Information: Patient Exam Limitations: No Limitations History of Present Illness Date Seen by Provider: Dec 16, 2021 Time Seen by Provider: 08:58 Initial Comments Patient is a 41-year-old female who presents to the emergency department today with a chief complaint of body aches, 1 episode of nausea and vomiting, reported temperature of "90" degrees at home (taken seceral times and she reports it was consistent). Mild sore throat. She states symptoms have been coming on for 4 d ays. She states she just does not feel "right". She states possibly a little bit of shortness of breath and cough. 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 She is COVID vaccinated. She states that she has a history of immunocompromise status and takes a monthly shot for an autoimmune syndrome. She states she has been hot and cold and sweating. No runny nose. No chest pain, no further nausea or vomiting. No urinary complaints or abnormal vaginal discharge. She does have a little diarrhea. She insists her temperature was 89/90 degrees by thermometer at home and then subsequently tested on the same thermometer at 97 today and feels like she has a fever as she is "very hot". All other review of systems reviewed and negative except as stated. Timing/Duration: 3-4 Days Severity: Mild Associated Systoms: Fever/Chills, Malaise, Nausea/Vomiting, Shortness of Air Allergies and Home Medications Allergies Coded Allergies: meperidine (Unverified Allergy, Mild, SWELLING, 12/12/09) gabapentin (Verified Allergy, Unknown, 11/24/15) naproxen (Verified Allergy, Unknown, NAUSEA, 01/12/16) pregabalin (Verified Allergy, Unknown, 11/24/15) venlafaxine (Verified Allergy, Unknown, 11/24/15) Patient Home Medication List Home Medication List Reviewed: Yes Amitriptyline HCl (Amitriptyline HCl) 25 Mg Tablet, (Reported) Entered as Reported by: JONI WELLINGTON on 06/15/181901 Cephalexin (Cephalexin) 500 Mg Tablet, 500 MG PO TID Prescribed by: CAMRON HOWELL on 09/13/192109 Hydrocodone Bit/Acetaminophen (Lortab 7.5-325 Mg/15 Ml Udc) 118 Ml Solution, (Reported) Entered as Reported by: JONI WELLINGTON on 06/15/181901 Hydrocodone Bit/Acetaminophen (Lortab 5 Mg Tablet) 1 Each Tablet, (Reported) Entered as Reported by: NICK LATHAM on 03/20/19 1337 Methylprednisolone (Methylprednisolone Dose Pack) 4 Mg Tab.ds.pk, 4 MG PO UD Prescribed by: ANGELINE RENDON on 03/07/21 1202 Omeprazole (Omeprazole) 40 Mg Capsule.dr, (Reported) Entered as Reported by: NICK LATHAM on 03/20/19 133 Ondansetron HCl (Ondansetron HCl) 4 Mg/5 Ml Solution, (Reported) Entered as Reported by: JONI WELLINGTON on 06/15/181901 Prednisone (Prednisone) 20 Mg Tab, 40 MG PO DAILY Prescribed by: YESSENIA MILLARD on 10/30/19 1201 Ropinirole HCl (Ropinirole HCl) 0.5 Mg Tablet, (Reported) Entered as Reported by: NICK LATHAM on 03/20/19 133 Tizanidine HCl (Tizanidine HCl) 4 Mg Tablet, (Reported) Entered as Reported by: NICK LATHAM on 03/20/19 133 Review of Systems Review of Systems Constitutional: see HPI, chills, fever, malaise EENTM: throat pain Respiratory: cough, short of breath Cardiovascular: no symptoms reported Gastrointestinal: no symptoms reported Genitourinary: no symptoms reported Musculoskeletal: muscle cramps Skin: no symptoms reported All Other Systems Reviewed Negative Unless Noted: Yes Past Nqvgnuy-Kmyajx-Tgdbnt Hx Patient Social History Tobacco Use?: Yes Tobacco type used: Cigarettes Smoking Status: Current Everyday Smoker Use of E-Cig and/or Vaping dev: No Substance use?: No Alcohol Use?: No Pt feels they are or have been: No Immunizations Up To Date Tetanus Booster (TDap): Less than 5yrs First/Initial COVID19 Vaccinat: 02/15/21 Seasonal Allergies Seasonal Allergies: Yes Past Medical History Surgeries: Yes (leep procedure, R knee scope, EGD, COLONOSCOPY, gastric bypass) Gallbladder, Tubal Ligation Respiratory: Yes (excercised induced asthma) Asthma Currently Using CPAP: No Currently Using BIPAP: No Cardiac: No Neurological: Yes Neuropathy 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 Disorders: No Female 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 Disorders: 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 Sexually Transmitted Disease: No Genitourinary: No Gastrointestinal: Yes Gastroesophageal Reflux Musculoskeletal: Yes (osteoarthritis, chronic fatique syndrome) Arthritis, Fibromyalgia, Chronic Back Pain Endocrine: No Tinnitis Hearing Impairment: Deaf Cancer: No Psychosocial: Yes (mood disorder) Anxiety, PTSD, Bipolar, Depression Integumentary: Yes Eczema, Pruritis Blood Disorders: No Physical Exam Vital Signs Vital Signs - First Documented 12/16/21 08:53 Temp 36.8 Pulse 90 Resp 18 B/P (MAP) 126/85 (99) Pulse Ox 100 O2 Delivery Room Air Capillary Refill : Height, Weight, BMI Height: 5'6.50" Weight: 345lbs. 0.0oz. 156.459075lm; 42.00 BMI Method:Stated General Appearance: No Apparent Distress, WD/WN Eyes: Bilateral Eye Normal Inspection, Bilateral Eye PERRL, Bilateral Eye EOMI HEENT: PERRL/EOMI, TMs Normal, Normal ENT Inspection, Pharynx Normal Neck: Normal Inspection, Non Tender Respiratory: Lungs Clear, Normal Breath Sounds, No Accessory Muscle Use, No Respiratory Distress Cardiovascular: Regular Rate, Rhythm, Normal Peripheral Pulses Gastrointestinal: Non Tender Extremity: Normal Inspection, Normal Range of Motion Neurologic/Psychiatric: Alert, Oriented x3, No Motor/Sensory Deficits, Normal Mood/Affect Skin: Normal Color, Warm/Dry, Other (normal temperature today) Procedures/Interventions Suture Size: 4-0 Progress/Results/Core Measures Suspected Sepsis SIRS Temperature: Pulse: Respiratory Rate: Blood Pressure / Mean: Results/Orders Lab Results Laboratory Tests Test 12/16/21 09:05 Range/Units SARS-CoV-2 RNA (RT-PCR) Not Detected Not Detecte My Orders Orders - PAOLA LOCKHART MD Covid 19 Inhouse Test (12/16/21 09:05) Isolation Central Supply Req (12/16/21 09:05) Vital Signs/I&O 12/16/21 12/16/21 08:53 08:53 Temp 36.8 Pulse 90 Resp 18 B/P (MAP) 126/85 (99) Pulse Ox 100 O2 Delivery Room Air Room Air Capillary Refill : Progress Note : Time: 10:03 Progress Note Patient's COVID test was negative. She is questioning the need for blood work however I have reassured her that her pulse, blood pressure, oxygenation and temperature are normal and she has no other complaints that would necessitate further work-up such as imaging or blood work. She does relate that she has a history of anemia and her conjunctive are little pale however she is not tachycardic or exhibiting any other signs suggestive of significant anemia. I recommended that she monitor her symptoms and should they change, especially due to her history of "immunocompromise status" she should come back to the emergency room for reevaluation. She is comfortable with the plan of care. All questions are sought and answered. Departure Impression Primary Impression: Viral syndrome Disposition: HOME, SELF-CARE Condition: Stable Departure-Patient Inst. Decision time for Depature: 10:05 Referrals: [facility] [place] (PCP/Family) Primary Care Physician Patient Instructions: Viral Syndrome (DC) Add. Discharge Instructions: Drink plenty of fluids to stay well-hydrated. Continue your routine daily medications. Monitor your symptoms for any changes. If you develop shortness of breath, cough, vomiting, rash or temperature above 101, please come back to the emergency department for reevaluation. Please call and follow-up with your primary care doctor next week. Work/School Note: Work Release Form Date Seen in the Emergency Department: Dec 16, 2021 Return to Work: Dec 16, 2021 Restrictions: No Restrictions Copy Copies To 1: GUZMAN FORD KATHRYN M MD Dec 16, 2021 09:18
== END 2021-12-16 10:10 | disposition home or self-care (01) ==
LOC: EDUNIT# 08:27 → ER 08:28
DX: B34.9 Viral infection, unspecified (principal); F17.210 Nicotine dependence, cigarettes, uncomplicated; Z20.822 Contact with and (suspected) exposure to COVID-19; Z28.311 Partially vaccinated for COVID-19
CPT/HCPCS: 87636; 99283

== ENCOUNTER → 2021-12-26 | Outpatient (CLI) | payer MEDICAID ==
[2021-12-26 12:55] LABS: ABSOLUTE RETIC # 38 10e9/uL (24-90); BASOPHILS % (AUTO) 1 % (0-10); EOSINOPHILS # (AUTO) 0.1 10^3/uL (0.0-0.3); EOSINOPHILS % (AUTO) 2 % (0-10); HEMATOCRIT 29 % (35-52); HEMOGLOBIN 8.7 g/dL (11.5-16.0); LYMPHOCYTES # (AUTO) 2.8 10^3/uL (1.0-4.0); LYMPHOCYTES % (AUTO) 43 % (12-44); MEAN CORPUSCULAR HEMOGLOBIN 21 pg (25-34); MEAN CORPUSCULAR HGB CONC 30 g/dL (32-36); MEAN CORPUSCULAR VOLUME 71 fL (80-99); MEAN PLATELET VOLUME 10.3 fL (9.0-12.2); MONOCYTES # (AUTO) 0.3 10^3/uL (0.0-1.0); MONOCYTES % (AUTO) 5 % (0-12); NEUTROPHILS # (AUTO) 3.2 10^3/uL (1.8-7.8); NEUTROPHILS % (AUTO) 50 % (42-75); PLATELET COUNT 296 10^3/uL (130-400); RETICULOCYTE % 0.93 % (0.50-2.40); WHITE BLOOD COUNT 6.4 10^3/uL (4.3-11.0)
[2021-12-26 14:04] LABS: EOSINOPHILS % (MANUAL) 1 %; LYMPHOCYTES % (MANUAL) 44 %; MONOCYTES % (MANUAL) 4 %; NEUTROPHILS % (MANUAL) 51 %
[2021-12-26 14:05] LABS: ACANTHOCYTES SLIGHT; ELLIPT/OVALOCYTES SLIGHT; HYPOCHROMASIA SLIGHT; MICROCYTOSIS SLIGHT; POIKILOCYTOSIS SLIGHT
== END ==
LOC: LAB 12:21
PROVIDERS: ATTEND Internal Medicine Rheumatology
DX: D50.9 Iron deficiency anemia, unspecified (principal)
CPT/HCPCS: 36415; 85007; 85027; 85045; 85055

== ENCOUNTER 2022-03-10 07:33 | Emergency (ER) | payer MEDICAID ==
[~2022-03-10] VITALS: Ht 173 cm; Wt 129.0 kg
[2022-03-10] MEDS ORDERED: LACTATED RINGERS 1,000 ML IV ONE (07:45)
[2022-03-10] MEDS ORDERED: ONDANSETRON 4 MG/2 ML (SDV) Z0FRAN IVP ONE (07:45)
--- NOTE | 2022-03-10 08:24 | Diagnostic Imaging Report ---
INDICATION: Chest pain COMPARISON: 03/20/2019 FINDINGS: The lungs are clear. No failure, effusion or pneumothorax. IMPRESSION: No acute appearing abnormality. Dictated by: Dictated on workstation # [id number]
[2022-03-10 08:46] LABS: BASOPHILS % (AUTO) 0 % (0-10); EOSINOPHILS % (AUTO) 0 % (0-10); HEMATOCRIT 30 % (35-52); HEMOGLOBIN 8.7 g/dL (11.5-16.0); LYMPHOCYTES # (AUTO) 1.7 10^3/uL (1.0-4.0); LYMPHOCYTES % (AUTO) 7 % (12-44); MEAN CORPUSCULAR HEMOGLOBIN 20 pg (25-34); MEAN CORPUSCULAR HGB CONC 29 g/dL (32-36); MEAN CORPUSCULAR VOLUME 69 fL (80-99); MONOCYTES # (AUTO) 0.8 10^3/uL (0.0-1.0); MONOCYTES % (AUTO) 4 % (0-12); NEUTROPHILS # (AUTO) 20.3 10^3/uL (1.8-7.8); NEUTROPHILS % (AUTO) 88 % (42-75); PLATELET COUNT 328 10^3/uL (130-400)
[2022-03-10 09:00] LABS: PROTHROMBIN TIME PATIENT 13.5 SEC (12.2-14.7)
[2022-03-10 09:03] LABS: ALBUMIN 3.7 GM/DL (3.2-4.5); CHLORIDE 104 MMOL/L (98-107); POTASSIUM 4.4 MMOL/L (3.6-5.0); SODIUM 137 MMOL/L (135-145)
[2022-03-10 09:04] LABS: CALCIUM 9.3 MG/DL (8.5-10.1)
[2022-03-10 09:05] LABS: GLUCOSE 107 MG/DL (70-105)
[2022-03-10 09:06] LABS: TOTAL PROTEIN 7.1 GM/DL (6.4-8.2)
[2022-03-10 09:07] LABS: BILIRUBIN,TOTAL 0.2 MG/DL (0.1-1.0); CARBON DIOXIDE 23 MMOL/L (21-32)
[2022-03-10 09:09] LABS: ALKALINE PHOSPHATASE 68 U/L (40-136); CREATININE SERUM 0.77 MG/DL (0.60-1.30); GFR ESTIMATED 100
[2022-03-10 09:10] LABS: BUN/CREATININE RATIO 14
[2022-03-10 09:12] LABS: ALANINE AMINOTRANSFERASE 12 U/L (0-55)
--- NOTE | 2022-03-10 09:14 | ED Chest Pain ---
General Chief Complaint: Chest Pain Stated Complaint: VOMITING Nursing Triage Note: PT STATES VOMITING ABOUT 0400, STATES LT CHEST PAIN AND SOB, 100% ON ROOM AIR AT TRIAGE. Source: patient Exam Limitations: no limitations History of Present Illness Date Seen by Provider: Mar 10, 2022 Time Seen by Provider: 07:40 Initial Comments This 41-year-old woman presents to the emergency room initially complaining of nausea and left side pain. She presents with an emesis basin with some liquidy emesis in it. Upon further interview, the pain is in her chest and started ar ound 0400. She has no known cardiac history. She has Compazine that she takes for headaches. She took it this morning without relief of her nausea. She denies abdominal pain or tenderness. She has had some body aches. She has iron deficiency anemia for which she had an iron infusion yesterday. She has some associated shortness of breath. Allergies and Home Medications Allergies Coded Allergies: meperidine (Unverified Allergy, Mild, SWELLING, 12/12/09) duloxetine (Verified Allergy, Unknown, 03/10/22) gabapentin (Verified Allergy, Unknown, 11/24/15) naproxen (Verified Allergy, Unknown, NAUSEA, 01/12/16) pregabalin (Verified Allergy, Unknown, 11/24/15) venlafaxine (Verified Allergy, Unknown, 11/24/15) Uncoded Allergies: Surgical Glue (Allergy, Mild, Rash, 03/10/22) Patient Home Medication List Home Medication List Reviewed: Yes Amitriptyline HCl (Amitriptyline HCl) 25 Mg Tablet, (Reported) Entered as Reported by: JONI WELLINGTON on 06/15/181901 Cephalexin (Cephalexin) 500 Mg Tablet, 500 MG PO TID Prescribed by: CAMRON HOWELL on 09/13/192109 Hydrocodone Bit/Acetaminophen (Lortab 7.5-325 Mg/15 Ml Udc) 118 Ml Solution, (Reported) Entered as Reported by: JONI WELLINGTON on 06/15/181901 Hydrocodone Bit/Acetaminophen (Lortab 5 Mg Tablet) 1 Each Tablet, (Reported) Entered as Reported by: NICK LATHAM on 03/20/19 1337 Methylprednisolone (Methylprednisolone Dose Pack) 4 Mg Tab.ds.pk, 4 MG PO UD Prescribed by: ANGELINE RENDON on 03/07/21 1202 Omeprazole (Omeprazole) 40 Mg Capsule., (Reported) Entered as Reported by: NICK LATHAM on 03/20/19 1337 Omeprazole (Omeprazole) 20 Mg Capsule.dr, 20 MG PO BID Prescribed by: VANESA PARRISH on 03/10/22 1227 Ondansetron (Ondansetron Odt) 4 Mg Tab.rapdis, 4 MG SL Q4H Prescribed by: VANESA PARRISH on 03/10/22 1227 Ondansetron HCl (Ondansetron HCl) 4 Mg/5 Ml Solution, (Reported) Entered as Reported by: JONI WELLINGTON on 06/15/18 1902 Prednisone (Prednisone) 20 Mg Tab, 40 MG PO DAILY Prescribed by: YESSENIA MILLARD on 10/30/19 1201 Ropinirole HCl (Ropinirole HCl) 0.5 Mg Tablet, (Reported) Entered as Reported by: NICK LATHAM on 03/20/19 1337 Sucralfate (Carafate) 1 Gram Tablet, 1 GM PO QID Prescribed by: VANESA PARRISH on 03/10/22 1228 Tizanidine HCl (Tizanidine HCl) 4 Mg Tablet, (Reported) Entered as Reported by: NICK LATHAM on 03/20/19 1337 Review of Systems Review of Systems Constitutional: see HPI EENTM: No Symptoms Reported Respiratory: See HPI Cardiovascular: See HPI Gastrointestinal: See HPI Genitourinary: No Symptoms Reported Musculoskeletal: see HPI Skin: no symptoms reported Psychiatric/Neurological: No Symptoms Reported Endocrine: No Symptoms Reported Hematologic/Lymphatic: No Symptoms Reported Past Hzknhot-Vewwxg-Tvfdst Hx Patient Social History Tobacco Use?: Yes Tobacco type used: Cigarettes Smokeless Tobacco Frequency: Current Someday User Use of E-Cig and/or Vaping dev: Yes E-Cig or Vaping type used: Nicotine Substance use?: No Alcohol Use?: Yes Alcohol type: Wine Alcohol Frequency: Rarely Immunizations Up To Date Tetanus Booster (TDap): Less than 5yrs First/Initial COVID19 Vaccinat: 02/15/21 Second COVID19 Vaccination Philip: 02/15/21 Third COVID19 Vaccination Date: 02/15/21 Seasonal Allergies Seasonal Allergies: Yes Past Medical History Surgery/Hospitalization HX: SPINAL STENOSIS, FIBROMYALGIA, DEGENERATIVE DISK, GETS IRON INFUSIONS FOR ANEMIA, TUBAL LIGATION, BI LAT KNEE SCOPES, GASTRIC BYPASS, CARPEL TUNNEL RT WRIST, EGD'S, COLONOSCOPIES, Surgeries: Yes (leep procedure, R knee scope, EGD, COLONOSCOPY, gastric bypass) Abdominal, Gallbladder, Orthopedic (Carpal tunnel, knee), Tubal Ligation Respiratory: Yes (excercised induced asthma) Asthma Currently Using CPAP: No Currently Using BIPAP: No Cardiac: Yes Hypertension Neurological: Yes Headaches /Migraines, Neuropathy 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 Disorders: Yes Female 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 Disorders: Denies, Endometriosis [employer] History: Tubal Ligation Sexually Transmitted Disease: No Genitourinary: No Gastrointestinal: Yes Gastroesophageal Reflux Musculoskeletal: Yes (osteoarthritis, chronic fatique syndrome, spinal stenosis) Arthritis, Fibromyalgia, Chronic Back Pain Endocrine: Yes (Vitamin D deficiency) Tinnitis Hearing Impairment: Deaf Cancer: No Psychosocial: Yes (mood disorder) Anxiety, PTSD, Bipolar, Depression Integumentary: Yes Eczema, Pruritis Blood Disorders: No Physical Exam Vital Signs Vital Signs - First Documented 03/10/22 07:54 Temp 36.7 Pulse 54 Resp 18 B/P (MAP) 135/91 (106) Pulse Ox 100 O2 Delivery Room Air Capillary Refill : Less Than 3 Seconds Height, Weight, BMI Height: 5'6.50" Weight: 345lbs. 0.0oz. [id number]; 43.00 BMI Method:Stated General Appearance: No Apparent Distress, WD/WN, Obese HEENT: PERRL/EOMI, Normal ENT Inspection Neck: Normal Inspection Respiratory: Lungs Clear, Normal Breath Sounds, No Accessory Muscle Use, No Respiratory Distress, Other (Left upper anterior chest mildly tender to palpation) Cardiovascular: Regular Rate, Rhythm, No Edema, No Murmur Gastrointestinal: Normal Bowel Sounds, Non Tender, Soft; No Distended; Other (Obese abdomen) Extremity: Normal Inspection, No Pedal Edema Neurologic/Psychiatric: Alert, Oriented x3, No Motor/Sensory Deficits, Normal Mood/Affect Skin: Normal Color, Warm/Dry Procedures/Interventions Suture Size: 4-0 Progress/Results/Core Measures Results/Orders Lab Results Laboratory Tests Test 03/10/22 08:30 03/10/22 08:35 03/10/22 09:30 03/10/22 10:45 Range/Units White Blood Count 23.0 H 4.3-11.0 10^3/uL Red Blood Count 4.31 3.80-5.11 10^6/uL Hemoglobin 8.7 L 11.5-16.0 g/dL Hematocrit 30 L 35-52 % Mean Corpuscular Volume 69 L 80-99 fL Mean Corpuscular Hemoglobin 20 L 25-34 pg Mean Corpuscular Hemoglobin Concent 29 L 32-36 g/dL Red Cell Distribution Width 18.7 H 10.0-14.5 % Platelet Count 328 130-400 10^3/uL Mean Platelet Volume 11.0 9.0-12.2 fL Immature Granulocyte % (Auto) 1 % Neutrophils (%) (Auto) 88 H 42-75 % Lymphocytes (%) (Auto) 7 L 12-44 % Monocytes (%) (Auto) 4 0-12 % Eosinophils (%) (Auto) 0 0-10 % Basophils (%) (Auto) 0 0-10 % Neutrophils # (Auto) 20.3 H 1.8-7.8 10^3/uL Lymphocytes # (Auto) 1.7 1.0-4.0 10^3/uL Monocytes # (Auto) 0.8 0.0-1.0 10^3/uL Eosinophils # (Auto) 0.0 0.0-0.3 10^3/uL Basophils # (Auto) 0.0 0.0-0.1 10^3/uL Immature Granulocyte # (Auto) 0.2 H 0.0-0.1 10^3/uL Neutrophils % (Manual) 88 % Lymphocytes % (Manual) 6 % Monocytes % (Manual) 6 % Polychromasia SLIGHT Hypochromasia MARKED Elliptocytes SLIGHT Prothrombin Time 13.5 12.2-14.7 SEC INR Comment 1.0 0.8-1.4 Activated Partial Thromboplast Time 24 24-35 SEC Sodium Level 137 135-145 MMOL/L Potassium Level 4.4 3.6-5.0 MMOL/L Chloride Level 104 98-107 MMOL/L Carbon Dioxide Level 23 21-32 MMOL/L Anion Gap 10 5-14 MMOL/L Blood Urea Nitrogen 11 7-18 MG/DL Creatinine 0.77 0.60-1.30 MG/DL Estimat Glomerular Filtration Rate 100 BUN/Creatinine Ratio 14 Glucose Level 107 H 70-105 MG/DL Calcium Level 9.3 8.5-10.1 MG/DL Corrected Calcium 9.5 8.5-10.1 MG/DL Magnesium Level 2.0 1.6-2.4 MG/DL Total Bilirubin 0.2 0.1-1.0 MG/DL Aspartate Amino Transf (AST/SGOT) 16 5-34 U/L Alanine Aminotransferase (ALT/SGPT) 12 0-55 U/L Alkaline Phosphatase 68 40-136 U/L Myoglobin 18.6 10.0-92.0 NG/ML Troponin I < 0.028 < 0.028 <0.028 NG/ML C-Reactive Protein High Sensitivity 0.67 H 0.00-0.50 MG/DL Total Protein 7.1 6.4-8.2 GM/DL Albumin 3.7 3.2-4.5 GM/DL Lipase 102 H 8-78 U/L Influenza Type A (RT-PCR) Not Detected Not Detecte Influenza Type B (RT-PCR) Not Detected Not Detecte SARS-CoV-2 RNA (RT-PCR) Not Detected Not Detecte Urine Color YELLOW Urine Clarity CLEAR Urine pH 6.0 5-9 Urine Specific [place] 1.025 H 1.016-1.022 Urine Protein NEGATIVE NEGATIVE Urine Glucose (UA) NEGATIVE NEGATIVE Urine Ketones NEGATIVE NEGATIVE Urine Nitrite NEGATIVE NEGATIVE Urine Bilirubin NEGATIVE NEGATIVE Urine Urobilinogen 0.2 < = 1.0 MG/DL Urine Leukocyte Esterase NEGATIVE NEGATIVE Urine RBC (Auto) NEGATIVE NEGATIVE Urine RBC NONE /HPF Urine WBC NONE /HPF Urine Squamous Epithelial Cells 0-2 /HPF Urine Crystals NONE /LPF Urine Bacteria TRACE /HPF Urine Casts NONE /LPF Urine Mucus NEGATIVE /LPF Urine Culture Indicated NO My Orders Orders - VANESA GOODMAN MD Cbc With Automated Diff (03/10/22 07:40) Comprehensive Metabolic Panel (03/10/22 07:40) Lactated Ringers (Lr 1000 Ml Iv Solution (03/10/22 07:45) Ondansetron Injection (Zofran Injectio (03/10/22 07:45) Ekg Tracing (03/10/22 07:52) Magnesium (03/10/22 07:56) Chest 1 View, Ap/Pa Only (03/10/22 07:56) Myoglobin Serum (03/10/22 07:56) Protime With Inr (03/10/22 07:56) Partial Thromboplastin Time (03/10/22 07:56) O2 (03/10/22 07:56) Monitor-Rhythm Ecg Trace Only (03/10/22 07:56) Ed Iv/Invasive Line Start (03/10/22 07:56) Troponin I Chambers (03/10/22 07:56) Covid 19 Inhouse Test (03/10/22 07:56) Influenza A And B By Pcr (03/10/22 07:56) Manual Differential (03/10/22 08:30) Hs C Reactive Protein (03/10/22 09:19) Lipase (03/10/22 09:19) Ua Culture If Indicated (03/10/22 09:32) Lidocaine 2% Viscous 15 Ml (Xylocaine Vi (03/10/22 10:30) Antacid Suspension (Mylanta Suspension (03/10/22 10:30) Troponin I Enma (03/10/22 10:45) Medications Given in ED Current Medications Medications Dose Ordered Sig/Colleen Route Start Time Stop Time Status Last Admin Dose Admin Al Hydrox/Mg Hydrox/Simethicone 30 ml ONCE ONCE PO 03/10/22 10:30 03/10/22 10:31 DC 03/10/22 10:27 30 ML Lactated Ringer's 1,000 ml @ 0 mls/hr Q0M ONCE IV 03/10/22 07:45 03/10/22 07:46 DC 03/10/22 08:35 1,000 MLS/HR Lidocaine HCl 15 ml ONCE ONCE PO 03/10/22 10:30 03/10/22 10:31 DC 03/10/22 10:27 15 ML Ondansetron HCl 8 mg ONCE ONCE IVP 03/10/22 07:45 03/10/22 07:46 DC 03/10/22 08:35 8 MG Vital Signs/I&O 03/10/22 03/10/22 07:54 13:03 Temp 36.7 36.7 Pulse 54 54 Resp 18 18 B/P (MAP) 135/91 (106) 131/80 Pulse Ox 100 100 O2 Delivery Room Air Room Air Blood Pressure Mean: 106 Progress Progress Note : Progress Note Initial work-up was unremarkable except for leukocytosis which is likely secondary to steroids she received during her iron infusion yesterday. Repeat troponin was negative. GI cocktail improved pain from 7/10 down to 2/10. Initial ECG Impression Date: Mar 10, 2022 Initial ECG Impression Time: 08:05 Initial ECG Rate: 46 Initial ECG Rhythm: S.Arash Initial ECG Intervals: Normal Initial ECG Impression: Sinus Bradycardia Comment Sinus bradycardia with no ST elevation or depression. No abnormal intervals or axis deviation. Diagnostic Imaging Diagonstic Imaging: Xray Plain Films/CT/US/NM/MRI: chest Comments Chest x-ray viewed by me and report reviewed. See report below: NAME: GLEN RIVERA [facility] REC#: [id number] PT STATUS: REG ER : 1980 PHYSICIAN: VANESA GOODMAN MD ADMIT DATE: 03/10/22/ER Signed Date of Exam:03/10/22 CHEST 1 VIEW, AP/PA ONLY INDICATION: Chest pain COMPARISON: 03/20/2019 FINDINGS: The lungs are clear. No failure, effusion or pneumothorax. IMPRESSION: No acute appearing abnormality. Dictated by: Dictated on workstation # [id number] Dict: 03/10/22820 Trans: 03/10/2239 [facility] [id number] Interpreted by: MARIELA HERNANDEZ Electronically signed by: MARIELA HERNANDEZ 03/10/22838 Departure Impression Primary Impression: Left upper quadrant pain Additional Impressions: Left-sided chest pain Nausea & vomiting Qualified Codes: R11.2 - Nausea with vomiting, unspecified Disposition: 01 HOME, SELF-CARE Condition: Improved Departure-Patient Inst. Decision time for Depature: 12:23 Referrals: [facility]/K (PCP/Family) Primary Care Physician Patient Instructions: Chest Pain That Is Not Caused by the Heart (DC), Esophagitis, Gastritis ED Add. Discharge Instructions: Your pain is likely due, at least in part, by inflammation of the stomach and/or esophagus known as gastritis or esophagitis. You can treat this by using an acid medication such as omeprazole. Use omeprazole twice daily for the next 2 weeks. Also use Carafate (sucralfate) as prescribed. You may crush and mix with a small amount of water or dissolve in a small amount of water. Then drink as a slurry 30 minutes before meals and before bedtime. Start with a noncarbonated clear liquid diet for the remainder of today. Then gradually advance her diet with small quantities of bland food as tolerated. Follow-up with your primary care provider soon as possible. You may treat nausea with Zofran as prescribed. Return to the ER if you have worsening symptoms despite following these instructions. All discharge instructions reviewed with patient and/or family. Voiced understanding. Scripts Sucralfate (Carafate) 1 Gram Tablet 1 GM PO QID, #60 TAB Crush/mix or dissolve into 5-10 mL water to make a slurry. Take 30 minutes before meals and bedtime. Prov: VANESA GOODMAN MD 03/10/22 Ondansetron (Ondansetron Odt) 4 Mg Tab.rapdis 4 MG SL Q4H, #10 TAB Prov: VANESA GOODMAN MD 03/10/22 Omeprazole (Omeprazole) 20 Mg Capsule. 20 MG PO BID, #30 CAP Prov: VANESA GOODMAN MD 03/10/22 Copy Copies To 1: [facility]/VANESA HIDALGO MD Mar 10, 2022 09:14
[2022-03-10 09:43] LABS: BILIRUBIN,URINE NEGATIVE (NEGATIVE); CLARITY,URINE CLEAR; COLOR,URINE YELLOW; GLUCOSE, URINE (UA) NEGATIVE (NEGATIVE); KETONES,URINE NEGATIVE (NEGATIVE); LEUKOCYTE ESTERASE ,URINE NEGATIVE (NEGATIVE); NITRITE,URINE NEGATIVE (NEGATIVE); PROTEIN,URINE NEGATIVE (NEGATIVE)
[2022-03-10 09:50] LABS: ELLIPT/OVALOCYTES SLIGHT; HYPOCHROMASIA MARKED; LYMPHOCYTES % (MANUAL) 6 %; MONOCYTES % (MANUAL) 6 %; NEUTROPHILS % (MANUAL) 88 %; POLYCHROMASIA SLIGHT
[2022-03-10 09:54] LABS: BACTERIA,URINE TRACE /HPF; SQUAMOUS EPITHELIAL CELL,UR 0-2 /HPF
[2022-03-10] MEDS ORDERED: ANTACID SUSP 30 ML UDC (MYLANTA) PO ONE (10:30)
[2022-03-10] MEDS ORDERED: LIDOCAINE 2% VISCOUS 15 ML UDC PO ONE (10:30)
[2022-03-10] MEDS ORDERED: OMEP20CA18 PO (12:27)
[2022-03-10] MEDS ORDERED: ONDA4TAB11 SL (12:27)
[2022-03-10] MEDS ORDERED: SUCR1TAB36 PO (12:28)
[2022-03-10 13:03] VITALS: BP 131/80
== END 2022-03-10 13:03 | disposition home or self-care (01) ==
LOC: EDUNIT# 07:33 → ER 07:36
DX: R10.12 Left upper quadrant pain (principal); R07.89 Other chest pain; R11.2 Nausea with vomiting, unspecified; E66.9 Obesity, unspecified; F17.210 Nicotine dependence, cigarettes, uncomplicated; Z90.49 Acquired absence of other specified parts of digestive tract; Z68.41 Body mass index [BMI] 40.0-44.9, adult; Z98.84 Bariatric surgery status; Z20.822 Contact with and (suspected) exposure to COVID-19
CPT/HCPCS: 36415; 71045; 80053; 81000; 83690; 83735; 83874; 84484; 85007; 85027; 85610; 85730; 86141; 87636; 93005; 93041

== ENCOUNTER 2022-03-17 13:49 | Emergency (ER) | payer MEDICAID ==
[~2022-03-17] VITALS: Ht 172 cm; Wt 132.0 kg
[~2022-03-17 13:49] MED LIST changes: +OMEP20CA18 PO; +ONDA4TAB11 SL; +SUCR1TAB36 PO
--- NOTE | 2022-03-17 14:21 | ED Abdominal Pain ---
General Chief Complaint: Abdominal/GI Problems Stated Complaint: ABD PAIN Source of Information: Patient Exam Limitations: No Limitations History of Present Illness Date Seen by Provider: Mar 17, 2022 Time Seen by Provider: 14:08 Initial Comments Patient is a 41-year-old female who presents to the emergency room with a chief complaint of "my stomach locked up". Patient was at home and just prior to arrival had spontaneous onset of severe pain that is epigastric and left upper quadrant. She states the pain hit her and she had acute onset of nausea and vomiting x1. She has had a history of gastric bypass surgery by Dr. Pruitt in [place] in 2018. She is also had prior cholecystectomy as well as what sounds like a Flaca fundoplication. History of anemia with iron infusions. She states vomiting hurts "a lot". She had a muffin and a couple coffee this morning and 2 cigarettes and that is about it. She states she vomited all of that up. She did have a normal bowel movement today, nonblack nonbloody. No dysuria, urgency or frequency. She is having no vaginal issues. No recent fevers or chills. She does have a child at home that had a "cold". She denies headache, URI symptoms. No sore throat. No chest pain or shortness of breath. Her nausea is gone and now she just feels like she has been "kicked". All other review of systems reviewed and negative except as stated. Timing/Duration: 1 Hour Severity/Quality: Severe, Aching, Cramping Location: LUQ, Epigastric Radiation: No Radiation Activities at Onset: Activity (normal household activities) Modifying Factors: Worsens With Coughing; Improves With Lying down (on right side makse symptoms better); Worsens With Movement Associated Symptoms: Nausea/Vomiting (resolved now) Allergies and Home Medications Allergies Coded Allergies: meperidine (Unverified Allergy, Mild, SWELLING, 12/12/09) duloxetine (Verified Allergy, Unknown, 03/10/22) gabapentin (Verified Allergy, Unknown, 11/24/15) naproxen (Verified Allergy, Unknown, NAUSEA, 01/12/16) pregabalin (Verified Allergy, Unknown, 11/24/15) venlafaxine (Verified Allergy, Unknown, 11/24/15) Uncoded Allergies: Surgical Glue (Allergy, Mild, Rash, 03/10/22) Patient Home Medication List Home Medication List Reviewed: Yes Amitriptyline HCl (Amitriptyline HCl) 25 Mg Tablet, (Reported) Entered as Reported by: JONI WELLINGTON on 06/15/181901 Cephalexin (Cephalexin) 500 Mg Tablet, 500 MG PO TID Prescribed by: CAMRON HOWELL on 09/13/192109 Hydrocodone Bit/Acetaminophen (Lortab 7.5-325 Mg/15 Ml Udc) 118 Ml Solution, (Reported) Entered as Reported by: JONI WELLINGTON on 06/15/181901 Hydrocodone Bit/Acetaminophen (Lortab 5 Mg Tablet) 1 Each Tablet, (Reported) Entered as Reported by: NICK LATHAM on 03/20/19 133 Methylprednisolone (Methylprednisolone Dose Pack) 4 Mg Tab.ds.pk, 4 MG PO UD Prescribed by: ANGELINE RENDON on 03/07/21 1202 Omeprazole (Omeprazole) 40 Mg Capsule.dr, (Reported) Entered as Reported by: NICK LATHAM on 03/20/19 1337 Omeprazole (Omeprazole) 20 Mg Capsule.dr, 20 MG PO BID Prescribed by: VANESA PARRISH on 03/10/22 1227 Ondansetron (Ondansetron Odt) 4 Mg Tab.rapdis, 4 MG SL Q4H Prescribed by: VANESA PARRISH on 03/10/22 1227 Ondansetron HCl (Ondansetron HCl) 4 Mg/5 Ml Solution, (Reported) Entered as Reported by: JONI WELLINGTON on 06/15/181901 Prednisone (Prednisone) 20 Mg Tab, 40 MG PO DAILY Prescribed by: YESSENIA MILLARD on 10/30/19 1201 Ropinirole HCl (Ropinirole HCl) 0.5 Mg Tablet, (Reported) Entered as Reported by: NICK LATHAM on 03/20/19 1337 Sucralfate (Carafate) 1 Gram Tablet, 1 GM PO QID Prescribed by: VANESA PARRISH on 03/10/22 1228 Tizanidine HCl (Tizanidine HCl) 4 Mg Tablet, (Reported) Entered as Reported by: NICK LATHAM on 03/20/19 133 Review of Systems Review of Systems Constitutional: see HPI EENTM: No Symptoms Reported Respiratory: No Symptoms Reported Cardiovascular: No Symptoms Reported Gastrointestinal: Abdominal Pain, Nausea, Vomiting Genitourinary: No Symptoms Reported Musculoskeletal: no symptoms reported Skin: no symptoms reported Psychiatric/Neurological: No Symptoms Reported All Other Systems Reviewed Negative Unless Noted: Yes Past Whokgmf-Mrtyde-Ykblhp Hx Immunizations Up To Date Tetanus Booster (TDap): Less than 5yrs First/Initial COVID19 Vaccinat: 02/15/21 Second COVID19 Vaccination Philip: 02/15/21 Third COVID19 Vaccination Date: 02/15/21 Seasonal Allergies Seasonal Allergies: Yes Past Medical History Surgery/Hospitalization HX: SPINAL STENOSIS, FIBROMYALGIA, DEGENERATIVE DISK, GETS IRON INFUSIONS FOR ANEMIA, TUBAL LIGATION, BI LAT KNEE SCOPES, GASTRIC BYPASS, CARPEL TUNNEL RT WRIST, EGD'S, COLONOSCOPIES, Surgeries: Yes (leep procedure, R knee scope, EGD, COLONOSCOPY, gastric bypass) Abdominal, Gallbladder, Orthopedic, Tubal Ligation Respiratory: Yes (excercised induced asthma) Asthma Currently Using CPAP: No Currently Using BIPAP: No Cardiac: Yes Hypertension Neurological: Yes Headaches /Migraines, Neuropathy 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 Disorders: Yes Female 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 Disorders: Denies, Endometriosis 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 Sexually Transmitted Disease: No Genitourinary: No Gastrointestinal: Yes Gastroesophageal Reflux Musculoskeletal: Yes (osteoarthritis, chronic fatique syndrome, spinal stenosis) Arthritis, Fibromyalgia, Chronic Back Pain Endocrine: Yes (Vitamin D deficiency) Tinnitis Hearing Impairment: Deaf Cancer: No Psychosocial: Yes (mood disorder) Anxiety, PTSD, Bipolar, Depression Integumentary: Yes Eczema, Pruritis Blood Disorders: No Physical Exam Vital Signs Vital Signs - First Documented 03/17/22 13:49 Temp 37.0 Pulse 97 Resp 16 B/P (MAP) 115/76 (89) Pulse Ox 99 O2 Delivery Room Air Capillary Refill : Height/Weight/BMI Height: 5'6.50" Weight: 345lbs. 0.0oz. 156.250688tw; 43.00 BMI Method:Stated General Appearance: WD/WN, mild distress (grimacing, lying on right side), obese Neck: normal inspection Respiratory: lungs clear, normal breath sounds, no respiratory distress, no accessory muscle use Cardiovascular: regular rate, rhythm (90) Gastrointestinal: soft, tenderness (LUQ just on top of the lowest ribs and inferior to. mild epigastric tenderness. hypoactive BS. morbid obesity.) Extremities: normal range of motion Neurologic/Psychiatric: alert, normal mood/affect, oriented x 3 Skin: normal color, warm/dry Procedures/Interventions Suture Size: 4-0 Progress/Results/Core Measures Results/Orders Lab Results Laboratory Tests Test 03/17/22 14:00 03/17/22 15:28 Range/Units White Blood Count 8.7 4.3-11.0 10^3/uL Red Blood Count 4.75 3.80-5.11 10^6/uL Hemoglobin 10.0 L 11.5-16.0 g/dL Hematocrit 34 L 35-52 % Mean Corpuscular Volume 71 L 80-99 fL Mean Corpuscular Hemoglobin 21 L 25-34 pg Mean Corpuscular Hemoglobin Concent 30 L 32-36 g/dL Red Cell Distribution Width 21.6 H 10.0-14.5 % Platelet Count 374 130-400 10^3/uL Mean Platelet Volume 10.5 9.0-12.2 fL Immature Granulocyte % (Auto) 1 % Neutrophils (%) (Auto) 68 42-75 % Lymphocytes (%) (Auto) 23 12-44 % Monocytes (%) (Auto) 6 0-12 % Eosinophils (%) (Auto) 1 0-10 % Basophils (%) (Auto) 0 0-10 % Neutrophils # (Auto) 5.9 1.8-7.8 10^3/uL Lymphocytes # (Auto) 2.0 1.0-4.0 10^3/uL Monocytes # (Auto) 0.5 0.0-1.0 10^3/uL Eosinophils # (Auto) 0.1 0.0-0.3 10^3/uL Basophils # (Auto) 0.0 0.0-0.1 10^3/uL Immature Granulocyte # (Auto) 0.1 0.0-0.1 10^3/uL Sodium Level 141 135-145 MMOL/L Potassium Level 4.4 3.6-5.0 MMOL/L Chloride Level 102 98-107 MMOL/L Carbon Dioxide Level 20 L 21-32 MMOL/L Anion Gap 19 H 5-14 MMOL/L Blood Urea Nitrogen 18 7-18 MG/DL Creatinine 1.57 H 0.60-1.30 MG/DL Estimat Glomerular Filtration Rate 43 BUN/Creatinine Ratio 11 Glucose Level 91 70-105 MG/DL Calcium Level 9.6 8.5-10.1 MG/DL Corrected Calcium 9.4 8.5-10.1 MG/DL Total Bilirubin 0.4 0.1-1.0 MG/DL Aspartate Amino Transf (AST/SGOT) 15 5-34 U/L Alanine Aminotransferase (ALT/SGPT) 11 0-55 U/L Alkaline Phosphatase 74 40-136 U/L Total Protein 7.8 6.4-8.2 GM/DL Albumin 4.2 3.2-4.5 GM/DL Lipase 18 8-78 U/L Urine Color YELLOW Urine Clarity SL CLOUDY Urine pH 7.0 5-9 Urine Specific Marks 1.025 H 1.016-1.022 Urine Protein NEGATIVE NEGATIVE Urine Glucose (UA) NEGATIVE NEGATIVE Urine Ketones 1+ H NEGATIVE Urine Nitrite NEGATIVE NEGATIVE Urine Bilirubin NEGATIVE NEGATIVE Urine Urobilinogen 0.2 < = 1.0 MG/DL Urine Leukocyte Esterase TRACE H NEGATIVE Urine RBC (Auto) NEGATIVE NEGATIVE Urine RBC NONE /HPF Urine WBC 2-5 /HPF Urine Squamous Epithelial Cells 25-50 H /HPF Urine Crystals NONE /LPF Urine Bacteria MODERATE H /HPF Urine Casts PRESENT /LPF Urine Hyaline Casts 5-10 H /LPF Urine Mucus MODERATE H /LPF Urine Culture Indicated YES My Orders Orders - PAOLA LOCKHART MD Ed Iv/Invasive Line Start (03/17/22 14:23) Cbc With Automated Diff (03/17/22 14:23) Comprehensive Metabolic Panel (03/17/22 14:23) Lipase (03/17/22 14:23) Hyoscyamine Sl Tablet (Levsin Sl Tablet) (03/17/22 14:30) Ua Culture If Indicated (03/17/22 14:58) Ct Abd/Pelvis Wo(Kidney Stone) (03/17/22 14:58) Ns Iv 1000 Ml (Sodium Chloride 0.9%) (03/17/22 15:45) Urine Culture (03/17/22 15:28) Medications Given in ED Current Medications Medications Dose Ordered Sig/Colleen Route Start Time Stop Time Status Last Admin Dose Admin Hyoscyamine Sulfate 0.125 mg ONCE ONCE PO 03/17/22 14:30 03/17/22 14:31 DC 03/17/22 14:36 0.125 MG Vital Signs/I&O 03/17/22 13:49 Temp 37.0 Pulse 97 Resp 16 B/P (MAP) 115/76 (89) Pulse Ox 99 O2 Delivery Room Air Progress Progress Note #1: Time: 16:34 Progress Note Patient treated with some Levsin. She had relief of her abdominal pain. SHe looks MUCH better, sitting up in bed, eating ice chips. It is noted that the patient has a slight RAMBO. CT renal stone protocol shows no obstructing uropathy, no hydronephrosis or any other acute pathology. She does have a complex ovarian cyst of about 3.5 cm. She has actually remembered that she did not, infact, eat anything today - so "it's been 20hr since I had food". Will recommend follow-up with her primary care physician on Saturday of next week. She has had 2 L of normal saline here in the emergency department. I have encouraged her to drink lots of fluids to stay well-hydrated. She will need to contact her primary care doctor on Saturday for a follow-up appointment next week. She will need repeat renal function panel to further assess her kidney func tion. CBC is normal, she has chronic anemia. Vital signs have been stable. No clinical or objective findings to warrant further studies from the emergency department. At this time I do not believe she needs inpatient treatment. Return precautions provided. Progress Note #2: Time: 17:01 Progress Note Patient is declining her second bag of IVF. She is asking for medication for pain. Will send a prescription for the levsin as it seemed to have helped treme ndously. REturn precautions again provided. Departure Impression Primary Impression: Abdominal pain Qualified Codes: R10.84 - Generalized abdominal pain Additional Impression: Acute kidney injury Disposition: HOME, SELF-CARE Condition: Improved (ERASED) Departure-Patient Inst. Decision time for Depature: 16:44 Referrals: [facility] (PCP) Primary Care Physician LULU COOPER APRN (Family) Primary Care Physician Patient Instructions: Abdominal Pain, Adult ED Add. Discharge Instructions: Drink plenty of fluids to stay well-hydrated. Eat a good meal for dinner. If you develop a return of abdominal pain especially with nausea, vomiting or fever develops or any other emergent concerning symptoms please come back to the emergency room for reevaluation. You will need to call your primary care doctor's office on Saturday for a follow- up appointment next week. You do need a kidney function panel blood test redone next week. Continue your daily medications as prescribed. Scripts Hyoscyamine Sulfate (Levsin) 0.125 Mg Tablet 0.125 MG PO Q4H PRN for abdominal spasms, #30 TAB Prov: PAOLA LOCKHART MD 03/17/22 Copy Copies To 1: GUZMAN FORD KATHRYN M MD Mar 17, 2022 14:21
[2022-03-17 14:29] LABS: BASOPHILS % (AUTO) 0 % (0-10); EOSINOPHILS # (AUTO) 0.1 10^3/uL (0.0-0.3); EOSINOPHILS % (AUTO) 1 % (0-10); HEMATOCRIT 34 % (35-52); LYMPHOCYTES % (AUTO) 23 % (12-44); MEAN CORPUSCULAR HEMOGLOBIN 21 pg (25-34); MEAN CORPUSCULAR HGB CONC 30 g/dL (32-36); MEAN CORPUSCULAR VOLUME 71 fL (80-99); MEAN PLATELET VOLUME 10.5 fL (9.0-12.2); MONOCYTES # (AUTO) 0.5 10^3/uL (0.0-1.0); MONOCYTES % (AUTO) 6 % (0-12); NEUTROPHILS # (AUTO) 5.9 10^3/uL (1.8-7.8); NEUTROPHILS % (AUTO) 68 % (42-75); PLATELET COUNT 374 10^3/uL (130-400); WHITE BLOOD COUNT 8.7 10^3/uL (4.3-11.0)
[2022-03-17] MEDS ORDERED: HYOSCYAMINE 0.125 MG (LEVSIN) TAB PO ONE (14:30)
[2022-03-17 14:34] LABS: ALBUMIN 4.2 GM/DL (3.2-4.5); POTASSIUM 4.4 MMOL/L (3.6-5.0)
[2022-03-17 14:35] LABS: CALCIUM 9.6 MG/DL (8.5-10.1)
[2022-03-17 14:36] LABS: TOTAL PROTEIN 7.8 GM/DL (6.4-8.2)
[2022-03-17 14:38] LABS: BILIRUBIN,TOTAL 0.4 MG/DL (0.1-1.0)
[2022-03-17 14:40] LABS: CREATININE SERUM 1.57 MG/DL (0.60-1.30)
--- NOTE | 2022-03-17 15:34 | Diagnostic Imaging Report ---
PROCEDURE: CT urinary tract, rule out kidney stone. TECHNIQUE: Multiple contiguous axial images were obtained through the abdomen and pelvis without the use of intravenous contrast. Auto Exposure Controls were utilized during the CT exam to meet ALARA standards for radiation dose reduction. INDICATION: Flank pain. COMPARISON: None. FINDINGS: Cholecystectomy. Postoperative changes in the stomach. No renal stones. No hydronephrosis. The lung bases are clear. The liver, pancreas, spleen, adrenals and bladder are unremarkable. Normal appendix. Nonspecific low-attenuation mass in the left adnexa measuring up to 3.9 cm. No free intraperitoneal air or fluid. No lymphadenopathy. No evidence of bowel obstruction. No acute osseous findings IMPRESSION: 1. No acute findings of the abdomen or pelvis. No renal stones or hydronephrosis. 2. Nonspecific low-attenuation mass in the left adnexa measuring up to 3.9 cm. This may represent the ovary or complex ovarian cyst. There is no free fluid in the pelvis. Pelvic ultrasound may be helpful for further evaluation. Dictated by: Dictated on workstation # [id number]
[2022-03-17 15:41] LABS: BILIRUBIN,URINE NEGATIVE (NEGATIVE); CLARITY,URINE SL CLOUDY; COLOR,URINE YELLOW; GLUCOSE, URINE (UA) NEGATIVE (NEGATIVE); KETONES,URINE 1+ (NEGATIVE); LEUKOCYTE ESTERASE ,URINE TRACE (NEGATIVE); NITRITE,URINE NEGATIVE (NEGATIVE); PROTEIN,URINE NEGATIVE (NEGATIVE)
[2022-03-17] MEDS ORDERED: NS IV 1000 ML 1,000 ML IV SCH (15:45)
[2022-03-17 16:24] LABS: BACTERIA,URINE MODERATE /HPF
[2022-03-17 16:25] LABS: SQUAMOUS EPITHELIAL CELL,UR 25-50 /HPF
[2022-03-17] MEDS ORDERED: HYOS0.1281 PO (17:04)
[2022-03-17 17:13] VITALS: BP 126/75
== END 2022-03-17 17:13 | disposition home or self-care (01) ==
LOC: EDUNIT# 13:49 → ER 13:51
DX: N17.9 Acute kidney failure, unspecified (principal); Z28.310 Unvaccinated for COVID-19
CPT/HCPCS: 36415; 74176; 80053; 81000; 83690; 85025; 87088

== ENCOUNTER 2022-05-03 13:52 | Emergency (ER) | payer MEDICAID ==
[~2022-05-03] VITALS: Ht 172.7 cm; Wt 136.7 kg
[~2022-05-03 13:52] MED LIST changes: +HYOS0.1281 PO
[2022-05-03 13:56] VITALS: BP 120/84
--- NOTE | 2022-05-03 14:44 | ED Integumentary General ---
General Chief Complaint: Laceration Stated Complaint: LACERATED FINGER Nursing Triage Note: PT AMB TO ED BY POV WITH C/O LAC ON L THUMB. PT REPORTS SHE WAS CUTTING FOOD AND GOT HER L THUMB WITH THE KNIFE. PT UTD ON TETANUS. Source: patient Exam Limitations: no limitations History of Present Illness Date Seen by Provider: May 03, 2022 Time Seen by Provider: 14:40 Initial Comments Patient is a 42-year-old female who presents to the emergency department with a chief complaint of laceration to the tip of the left thumb. She was making her son a sandwich and the knife slipped and came down over the tip of her thumb into her fingernail. She had immediate bleeding. She states tetanus is up-to- date. She is right-handed. Timing/Duration: just prior to arrival Possible Cause: other (laceration) Associated Symptoms: denies symptoms Allergies and Home Medications Allergies Coded Allergies: meperidine (Unverified Allergy, Mild, SWELLING, 12/12/09) duloxetine (Verified Allergy, Unknown, 03/10/22) gabapentin (Verified Allergy, Unknown, 11/24/15) naproxen (Verified Allergy, Unknown, NAUSEA, 01/12/16) pregabalin (Verified Allergy, Unknown, 11/24/15) venlafaxine (Verified Allergy, Unknown, 11/24/15) Uncoded Allergies: Surgical Glue (Allergy, Mild, Rash, 03/10/22) Patient Home Medication List Home Medication List Reviewed: Yes Amitriptyline HCl (Amitriptyline HCl) 25 Mg Tablet, (Reported) Entered as Reported by: JONI WELLINGTON on 06/15/181901 Cephalexin (Cephalexin) 500 Mg Tablet, 500 MG PO TID Prescribed by: CAMRON HOWELL on 09/13/19 211 Hydrocodone Bit/Acetaminophen (Lortab 7.5-325 Mg/15 Ml Udc) 118 Ml Solution, (Reported) Entered as Reported by: JONI WELLINGTON on 06/15/181901 Hydrocodone Bit/Acetaminophen (Lortab 5 Mg Tablet) 1 Each Tablet, (Reported) Entered as Reported by: NICK LATHAM on 03/20/19 1337 Hyoscyamine Sulfate (Levsin) 0.125 Mg Tablet, 0.125 MG PO Q4H PRN for abdominal spasms Prescribed by: PAOLA LOCKHART on 03/17/22 1704 Methylprednisolone (Methylprednisolone Dose Pack) 4 Mg Tab.ds.pk, 4 MG PO UD Prescribed by: ANGELINE RENDON on 03/07/21 1202 Omeprazole (Omeprazole) 40 Mg Capsule., (Reported) Entered as Reported by: NICK LATHAM on 03/20/19 1337 Omeprazole (Omeprazole) 20 Mg Capsule.dr, 20 MG PO BID Prescribed by: VANESA PARRISH on 03/10/22 1227 Ondansetron (Ondansetron Odt) 4 Mg Tab.rapdis, 4 MG SL Q4H Prescribed by: VANESA PARRISH on 03/10/22 1227 Ondansetron HCl (Ondansetron HCl) 4 Mg/5 Ml Solution, (Reported) Entered as Reported by: JONI WELLINGTON on 06/15/18 1902 Prednisone (Prednisone) 20 Mg Tab, 40 MG PO DAILY Prescribed by: YESSENIA MILLARD on 10/30/19 1201 Ropinirole HCl (Ropinirole HCl) 0.5 Mg Tablet, (Reported) Entered as Reported by: NICK LATHAM on 03/20/19 1337 Sucralfate (Carafate) 1 Gram Tablet, 1 GM PO QID Prescribed by: VANESA PARRISH on 03/10/22 1228 Tizanidine HCl (Tizanidine HCl) 4 Mg Tablet, (Reported) Entered as Reported by: NICK LATHAM on 03/20/19 1337 Review of Systems Review of Systems Constitutional: see HPI Skin: other (laceration) All Other Systems Reviewed Negative Unless Noted: Yes Past Awtavsf-Zsnqhz-Nsgdlt Hx Patient Social History Tobacco Use?: Yes Tobacco type used: Cigarettes Smoking Status: Current Someday Smoker Use of E-Cig and/or Vaping dev: Yes E-Cig or Vaping type used: Nicotine Use of E-Cig and/or Vaping Calvin: Current Everyday User Substance use?: No Alcohol Use?: No Pt feels they are or have been: No Immunizations Up To Date Tetanus Booster (TDap): Less than 5yrs Influenza Vaccine Up-to-Date: No; Not Current First/Initial COVID19 Vaccinat: 2020 Second COVID19 Vaccination Philip: 2020 Third COVID19 Vaccination Date: 02/15/21 COVID19 Vaccine 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 Seasonal Allergies Seasonal Allergies: Yes Past Medical History Surgery/Hospitalization HX: FIBROMYALGIA, NEUROPATHY, SPINAL STENOSIS, ANEMIA Surgeries: Yes (leep procedure, R knee scope, EGD, COLONOSCOPY, gastric bypass) Abdominal, Gallbladder, Orthopedic, Tubal Ligation Respiratory: Yes (excercised induced asthma) Asthma Currently Using CPAP: No Currently Using BIPAP: No Cardiac: Yes Hypertension Neurological: Yes Headaches /Migraines, Neuropathy 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 Disorders: Yes Female 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 Disorders: Denies, 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 Sexually Transmitted Disease: No Genitourinary: No Gastrointestinal: Yes Gastroesophageal Reflux Musculoskeletal: Yes (osteoarthritis, chronic fatique syndrome, spinal stenosis) Arthritis, Fibromyalgia, Chronic Back Pain Endocrine: Yes (Vitamin D deficiency) Tinnitis Hearing Impairment: Deaf Cancer: No Psychosocial: Yes (mood disorder) Anxiety, PTSD, Bipolar, Depression Integumentary: Yes Eczema, Pruritis Blood Disorders: No Physical Exam Vital Signs Vital Signs - First Documented 05/03/22 13:56 Temp 37.2 Pulse 107 Resp 18 B/P (MAP) 120/84 (96) Pulse Ox 99 O2 Delivery Room Air Capillary Refill : Less Than 3 Seconds General Appearance: WD/WN, no apparent distress Respiratory: no respiratory distress, no accessory muscle use Extremities: normal range of motion, normal inspection Neurologic/Psychiatric: alert, normal mood/affect Skin: normal color, warm/dry Skin Problem Location: other (2 cm laceration at the distal medial thumb. Involves the nailbed and wraps medially around to the volar surface of the thumb. No active bleeding. Flap-like. Seems to involve the nailbed. ) Procedures/Interventions Suture Size: 4-0 Progress/Results/Core Measures Results/Orders My Orders Orders - PAOLA LOCKHART MD Lidocaine 1% Inj 20 Ml (Xylocaine 1% Inj (05/03/22 14:45) Medications Given in ED Current Medications Medications Dose Ordered Sig/Colleen Route Start Time Stop Time Status Last Admin Dose Admin Lidocaine HCl 20 ml ONCE ONCE INJ 05/03/22 14:45 05/03/22 14:46 DC 05/03/22 14:58 20 ML Vital Signs/I&O 05/03/22 13:56 Temp 37.2 Pulse 107 Resp 18 B/P (MAP) 120/84 (96) Pulse Ox 99 O2 Delivery Room Air Blood Pressure Mean: 96 Progress Progress Note #1: Time: 15:38 Progress Note Patient initially declined suture repair however when offered partial digital block she consented. Medial aspect of the thumb was blocked with 1% lidocaine, 2.5 cc. After appropriate anesthesia was obtained, 5-0 Prolene was used to place 2 sutures in the laceration. 1 through the nailbed 1 through the skin. Hemostasis was achieved. Wound care precautions were provided. Return p recautions are also provided. Again patient's tetanus is up-to-date, 3 years Progress Note #2: Time: 16:26 Progress Note Multiple attempts at digital block with 1% lidocaine. about 4cc. I was unable to get adequate anesthesia. She was extremely apprehensive. The patient ultimately declined further attempts at sutures. She also stated she was allergic to glue. We applied steri strips and a tegaderm. The patient states she will buy a "finger condom" and keep it covered and clean. Return precautions provided. Departure Impression Primary Impression: Laceration of thumb with damage to nail Qualified Codes: S61.112A - Laceration without foreign body of left thumb with damage to nail, initial encounter Disposition: 01 HOME, SELF-CARE Condition: Stable Departure-Patient Inst. Decision time for Depature: 15:40 Referrals: [facility] (PCP) Primary Care Physician LULU COOPER APRN (Family) Primary Care Physician Patient Instructions: Laceration Repair With Stitches ED Add. Discharge Instructions: Keep the wound clean dry and covered for the next 2 to 3 days. Do not put your hand in dishwater or submerge in a bathtub. You can wash it briefly with soap and water to keep it clean. Monitor the wound for redness, swelling and drainage. The stitches will need to be clipped out in 10 days to 2 weeks. You can come back to the emergency department for suture removal as it is part of this visit. Follow-up with your primary care for any other concerns. 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
[2022-05-03] MEDS ORDERED: LIDOCAINE 1% INJ 20 ML VIAL INJ ONE (14:45)
== END 2022-05-03 16:35 | disposition home or self-care (01) ==
LOC: EDUNIT# 13:52 → ER 13:55
DX: S61.112A Laceration without foreign body of left thumb with damage to nail, initial encounter (principal); F17.210 Nicotine dependence, cigarettes, uncomplicated; W26.0XXA Contact with knife, initial encounter

== ENCOUNTER 2022-07-31 18:32 | Emergency (ER) | payer MEDICAID ==
--- NOTE | 2022-07-31 19:36 | ED Upper Extremity ---
General Chief Complaint: Upper Extremity Stated Complaint: EXTREME PAIN IN RIGHT SHOULDER Nursing Triage Note: TO ED VIA POV AND AMBULATORY TO [facility] WITH C/O RIGHT SIDE ARM AND NECK PAIN. STATES HAD "KNOT" IN SHOULDER YESTERDAY. HAS TAKEN PAIN MEDS AND MUSCLE RELAXERS WITHOUT RELIEF. Source: patient Exam Limitations: no limitations History of Present Illness Date Seen by Provider: Jul 31, 2022 Time Seen by Provider: 19:25 Initial Comments 42-year-old female presents with pain starting in her upper back/right scapula radiating around down her right arm, and up into her right neck. States she has had similar pain before, likely due to her spinal stenosis and fibromyalgia. She also has connective tissue disease and progressive idiopathic neuropathy. States her fingers feel little numb, states this is normal for her with this pain. States her symptoms started upon awakening this morning. States that she was sent home from work early due to inability to work, states she took a muscle relaxer, tizanidine, which usually helps this pain but it did not today. States she also tried a heating pad with no relief. Denies trauma. States she sleeps on her side. Denies nausea/vomiting, fevers, chest pain, shortness of air, abdominal pain. Onset: this morning Allergies and Home Medications Allergies Coded Allergies: meperidine (Unverified Allergy, Mild, SWELLING, 12/12/09) duloxetine (Verified Allergy, Unknown, 03/10/22) gabapentin (Verified Allergy, Unknown, 11/24/15) naproxen (Verified Allergy, Unknown, NAUSEA, 01/12/16) pregabalin (Verified Allergy, Unknown, 11/24/15) venlafaxine (Verified Allergy, Unknown, 11/24/15) Uncoded Allergies: Surgical Glue (Allergy, Mild, Rash, 03/10/22) Patient Home Medication List Home Medication List Reviewed: Yes Amitriptyline HCl (Amitriptyline HCl) 25 Mg Tablet, (Reported) Entered as Reported by: JONI WELLINGTON on 06/15/181901 Cephalexin (Cephalexin) 500 Mg Tablet, 500 MG PO TID Prescribed by: CAMRON HOWELL on 09/13/192109 Hydrocodone Bit/Acetaminophen (Lortab 7.5-325 Mg/15 Ml Udc) 118 Ml Solution, (Reported) Entered as Reported by: JONI WELLINGTON on 12/16/18 1902 Hydrocodone Bit/Acetaminophen (Lortab 5 Mg Tablet) 1 Each Tablet, (Reported) Entered as Reported by: NICK LATHAM on 03/20/19 1337 Hyoscyamine Sulfate (Levsin) 0.125 Mg Tablet, 0.125 MG PO Q4H PRN for abdominal spasms Prescribed by: PAOLA LOCKHART on 03/17/22 1704 Methylprednisolone (Methylprednisolone Dose Pack) 4 Mg Tab.ds.pk, 4 MG PO UD Prescribed by: ANGELINE RENDON on 03/07/21 1202 Methylprednisolone (Methylprednisolone Dose Pack) 4 Mg Tab.ds.pk, 4 MG PO UD Prescribed by: Gloria Wang on 07/31/22 210 Omeprazole (Omeprazole) 40 Mg Capsule., (Reported) Entered as Reported by: NICK LATHAM on 03/20/19 1337 Omeprazole (Omeprazole) 20 Mg Capsule.dr, 20 MG PO BID Prescribed by: VANESA PARRISH on 03/10/22 1227 Ondansetron (Ondansetron Odt) 4 Mg Tab.rapdis, 4 MG SL Q4H Prescribed by: VANESA PARRISH on 03/10/22 1227 Ondansetron HCl (Ondansetron HCl) 4 Mg/5 Ml Solution, (Reported) Entered as Reported by: JONI WELLINGTON on 06/15/18 190 Prednisone (Prednisone) 20 Mg Tab, 40 MG PO DAILY Prescribed by: YESSENIA MILLARD on 10/30/19 1201 Ropinirole HCl (Ropinirole HCl) 0.5 Mg Tablet, (Reported) Entered as Reported by: NICK LATHAM on 03/20/19 1337 Sucralfate (Carafate) 1 Gram Tablet, 1 GM PO QID Prescribed by: VANESA PARRISH on 03/10/22 1228 Tizanidine HCl (Tizanidine HCl) 4 Mg Tablet, (Reported) Entered as Reported by: NICK LATHAM on 03/20/19 133 Review of Systems Constitutional: see HPI Past Nrleujn-Uiocvs-Sqzaaf Hx Patient Social History Tobacco Use?: Yes Use of E-Cig and/or Vaping dev: Yes E-Cig or Vaping type used: Nicotine Alcohol Use?: Yes Alcohol Frequency: Rarely Immunizations Up To Date Tetanus Booster (TDap): Less than 5yrs Influenza Vaccine Up-to-Date: No; Not Current First/Initial COVID19 Vaccinat: 2020 Second COVID19 Vaccination Philip: 2020 Third COVID19 Vaccination Date: 2020 Seasonal Allergies Seasonal Allergies: Yes Past Medical History Surgery/Hospitalization HX: FIBROMYALGIA, NEUROPATHY, SPINAL STENOSIS, ANEMIA Surgeries: Yes (leep procedure, R knee scope, EGD, COLONOSCOPY, gastric bypass) Abdominal, Gallbladder, Orthopedic, Tubal Ligation Respiratory: Yes (excercised induced asthma) Asthma Currently Using CPAP: No Currently Using BIPAP: No Cardiac: Yes Hypertension Neurological: Yes Headaches /Migraines, Neuropathy 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 Disorders: Yes Female 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 Disorders: Denies, 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 Sexually Transmitted Disease: No Genitourinary: No Gastrointestinal: Yes Gastroesophageal Reflux Musculoskeletal: Yes (osteoarthritis, chronic fatique syndrome, spinal stenosis) Arthritis, Fibromyalgia, Chronic Back Pain Endocrine: Yes (Vitamin D deficiency) Tinnitis Hearing Impairment: Deaf Cancer: No Psychosocial: Yes (mood disorder) Anxiety, PTSD, Bipolar, Depression Integumentary: Yes Eczema, Pruritis Blood Disorders: No Physical Exam Vital Signs Vital Signs - First Documented 07/31/22 19:11 Temp 36.1 Pulse 82 Resp 16 B/P (MAP) 131/90 (104) Pulse Ox 100 O2 Delivery Room Air Capillary Refill : Less Than 3 Seconds Height, Weight, BMI Height: 5'6.50" Weight: 345lbs. 0.0oz. 156.796341rd; 45.00 BMI Method:Stated General Appearance: WD/WN, mild distress Neck: normal inspection, limited range of motion; No tender lateral, No tender midline Cardiovascular: regular rate, rhythm, no edema, no gallop, no JVD, no murmur Respiratory: lungs clear, normal breath sounds, no respiratory distress, no accessory muscle use Back: normal inspection, no vertebral tenderness, muscle spasm Shoulder: normal inspection, no evidence of injury, limited ROM, pain, soft tissue tenderness Neurologic/Psychiatric: alert, normal mood/affect, oriented x 3 Skin: normal color, warm/dry Procedures/Interventions Suture Size: 4-0 Progress/Results/Core Measures Results/Orders My Orders Medications Given in ED Vital Signs/I&O Blood Pressure Mean: 104 Progress Progress Note #1: Time: 20:00 Progress Note Patient seen and evaluated, sitting on bed, mild distress. Concern for muscle spasms and radiculopathy. Toradol, norflex, and decadron ordered. Progress Note #2: Time: 20:57 Progress Note Patient reassessed at this time. Patient states she is no better. States the medications took the edge off, but she is still in a lot of pain. While talking with patient, she is moving her the lower half of her right arm around and does not seem to be having any issues, she did not move this part of her arm during initial assessment. Offered to give her a shot of morphine and to be discharged with a Medrol Dosepak and to continue taking her home muscle relaxers. She states she already has an appointment scheduled with Dr. Berrios on Saturday. Patient agreed to this plan. Progress Note #3: Time: 21:47 Progress Note Attempted to discharge patient, patient told nurse she is uncomfortable with going home due to still having pain. This provider to bedside to speak with patient. When this provider arrived, patient was moving her arm well and using it on her phone. Patient states she still does not feel any better. Discussed options with patient, offered to do imaging of her spine, but patient did not have pain to palpation of her spine previously. This provider again palpated the spine, and patient jumped saying that it hurt. Will order CT of her spine. Progress Note #4: Time: 23:[address] results reviewed. Reversal of cervical lordosis, degenerative changes in cervical, thoracic, and lumbar spine. Results discussed with patient. Patient agreeable to discharge at this time. Again instructed to take steroid and home muscle relaxer and to use heat or ice for pain. Instructed to follow-up with Dr. Berrios and her neurologist. Return precautions provided. Departure Impression Primary Impression: Cervical radiculopathy Disposition: HOME, SELF-CARE Condition: Stable Departure-Patient Inst. Referrals: LULU BERRIOS APRN (PCP/Family) Primary Care Physician Patient Instructions: Radiculopathy (DC) Add. Discharge Instructions: Take Medrol Dosepak as prescribed. Continue taking your on muscle relaxers. Follow-up with Dr. Berrios on Saturday. Return for worsening pain, inability to move arm, numbness tingling that does not go away, or any other new, concerning, or worsening symptoms. All discharge instructions reviewed with patient and/or family. Voiced understanding. Scripts Methylprednisolone (Methylprednisolone Dose Pack) 4 Mg Tab.ds.pk 4 MG PO UD for 6 Days, #21 PKG 0 Refills PER DOSE PACK INSTRUCTIONS Prov: GLORIA WANG APRN 07/31/22 Work/School Note: Work Release Form Date Seen in the Emergency Department: Jul 31, 2022 Return to Work: Aug 03, 2022 GLORIA WANG APRN Jul 31, 2022 19:36
[2022-07-31] MEDS ORDERED: KETOROLAC 30 MG/ML VIAL IM ONE (19:45)
[2022-07-31] MEDS ORDERED: ORPHENADRINE 60 MG/2 ML (NORFLEX) AMP (ED ONLY) IM ONE (19:45)
[2022-07-31] MEDS ORDERED: morphine INJ 4 MG/ML 1 ML (VIAL/SYRINGE) IM ONE (21:00)
[2022-07-31] MEDS ORDERED: METH4TAB10 PO (21:06)
[2022-07-31] MEDS ORDERED: morphine INJ 10 MG/ML 1ML (SYR OR VIAL) ONE (21:09)
[2022-07-31 23:23] VITALS: BP 127/86
--- NOTE | 2022-08-01 07:15 | Diagnostic Imaging Report ---
CT CERV/THORACIC/LUMBAR WO INDICATION: Arm and back pain. COMPARISON: None available. TECHNIQUE: CT imaging of the cervical, thoracic and lumbar spine without contrast. Automatic exposure controls were utilized to keep dose as low as reasonably achievable. FINDINGS: Cervical spine: Slight kyphotic curvature with apex at C5-C6. No spondylolisthesis. No fracture or concerning focal osseous lesion. No high-grade spinal canal stenosis. Additionally, there are no sites of high-grade osseous neural foraminal narrowing. Airway is widely patent. No cervical lymphadenopathy. Thyroid is normal. Lung apices are clear. Thoracic spine: Normal kyphosis of the thoracic spine. No spondylolisthesis. No fracture or concerning focal osseous lesion. There are a few areas of posterior endplate ridging and ossification of posterior longitudinal ligament that cause no more than mild spinal canal stenosis. No paravertebral mass or abnormal stranding. Visible lungs are clear. No pleural effusion. Lumbar spine: Normal alignment lumbar spine. No fracture. No high-grade spinal canal stenosis. Additionally, there is no high-grade neuroforaminal stenosis. No concerning abnormality in the visualized retroperitoneum. Sacrum is normal in appearance. No ankylosis of the SI joints. Degenerative sclerosis is present along the inferior aspect of the right SI joint. IMPRESSION: 1. No sites of high-grade spinal canal stenosis within the cervical, thoracic or lumbar spine. 2. No acute osseous abnormality. 3. Findings are in agreement with the preliminary report. Dictated by: Dictated on workstation # [id number]
== END 2022-07-31 23:23 | disposition home or self-care (01) ==
LOC: EDUNIT# 18:32 → ER 18:34
DX: M54.12 Radiculopathy, cervical region (principal); F17.290 Nicotine dependence, other tobacco product, uncomplicated
CPT/HCPCS: 72125; 72128; 72131

== ENCOUNTER 2023-01-25 06:12 | Emergency (ER) | payer MEDICAID ==
[~2023-01-25] VITALS: Ht 172.7 cm; Wt 177.0 kg
--- NOTE | 2023-01-25 06:27 | ED EENT ---
History of Present Illness General Stated Complaint: DENTAL PAIN Source: patient Exam Limitations: no limitations History of Present Illness Date Seen by Provider: Jan 25, 2023 Time Seen by Provider: 06:50 Initial Comments Patient is a 42yo female who presents with a chief complaint of dental pain. SHe states that she has had issues with this tooth "for about 5 months". SHe states that she calls every morning at 0730 and when they answer at 0734 they tell her all the appointments have been filled. She took 2 tylenol for the pain at 0130. SHe states naproxen makes her nauseated. She states she hasnt been able to eat "for about 2 days". She states "I started to get hot" earlier than normal at work this morning and had some chills. No other complaints of illness or injury. Timing/Duration: gradual Severity: moderate (dental pain) Prearrival Treatment: over the counter meds Associated Symptoms: tooth pain Allergies and Home Medications Allergies Coded Allergies: meperidine (Unverified Allergy, Mild, SWELLING, 12/12/09) duloxetine (Verified Allergy, Unknown, 03/10/22) gabapentin (Verified Allergy, Unknown, 11/24/15) naproxen (Verified Allergy, Unknown, NAUSEA, 01/12/16) pregabalin (Verified Allergy, Unknown, 11/24/15) venlafaxine (Verified Allergy, Unknown, 11/24/15) Uncoded Allergies: Surgical Glue (Allergy, Mild, Rash, 03/10/22) Patient Home Medication List Home Medication List Reviewed: Yes Amitriptyline HCl (Amitriptyline HCl) 25 Mg Tablet, (Reported) Entered as Reported by: JONI WELLINGTON on 06/15/181901 Cephalexin (Cephalexin) 500 Mg Tablet, 500 MG PO TID Prescribed by: CAMRON HOWELL on 09/13/192109 Hydrocodone Bit/Acetaminophen (Lortab 7.5-325 Mg/15 Ml Udc) 118 Ml Solution, (Re ported) Entered as Reported by: JONI WELLINGTON on 06/15/181901 Hydrocodone Bit/Acetaminophen (Lortab 5 Mg Tablet) 1 Each Tablet, (Reported) Entered as Reported by: NICK LATHAM on 03/20/19 1337 Hyoscyamine Sulfate (Levsin) 0.125 Mg Tablet, 0.125 MG PO Q4H PRN for abdominal spasms Prescribed by: PAOLA LOCKHART on 03/17/22 1704 Methylprednisolone (Methylprednisolone Dose Pack) 4 Mg Tab.ds.pk, 4 MG PO UD Prescribed by: ANGELINE RENDON on 03/07/21 1202 Methylprednisolone (Methylprednisolone Dose Pack) 4 Mg Tab.ds.pk, 4 MG PO UD Prescribed by: Gloria Ho on 07/31/22 210 Omeprazole (Omeprazole) 40 Mg Capsule.dr, (Reported) Entered as Reported by: NICK LATHAM on 03/20/19 1337 Omeprazole (Omeprazole) 20 Mg Capsule.dr, 20 MG PO BID Prescribed by: VANESA PARRISH on 03/10/22 1227 Ondansetron (Ondansetron Odt) 4 Mg Tab.rapdis, 4 MG SL Q4H Prescribed by: VANESA PARRISH on 03/10/22 1227 Ondansetron HCl (Ondansetron HCl) 4 Mg/5 Ml Solution, (Reported) Entered as Reported by: JONI WELLINGTON on 06/15/18 1902 Prednisone (Prednisone) 20 Mg Tab, 40 MG PO DAILY Prescribed by: YESSENIA MILLARD on 10/30/19 1201 Ropinirole HCl (Ropinirole HCl) 0.5 Mg Tablet, (Reported) Entered as Reported by: NICK LATHAM on 03/20/19 1337 Sucralfate (Carafate) 1 Gram Tablet, 1 GM PO QID Prescribed by: VANESA PARRISH on 03/10/22 1228 Tizanidine HCl (Tizanidine HCl) 4 Mg Tablet, (Reported) Entered as Reported by: NICK LATHAM on 03/20/19 1337 Review of Systems Review of Systems Constitutional: see HPI Mouth: pain (dental) Throat: no symptoms reported Respiratory: no symptoms reported Cardiovascular: no symptoms reported Gastrointestinal: no symptoms reported Musculoskeletal: no symptoms reported All Other Systems Reviewed Negative Unless Noted: Yes Past Zfuquan-Ivcfcc-Avshhf Hx Immunizations Up To Date Tetanus Booster (TDap): Less than 5yrs First/Initial COVID19 Vaccinat: 2020 Second COVID19 Vaccination Philip: 2020 Third COVID19 Vaccination Date: 2020 Seasonal Allergies Seasonal Allergies: Yes Past Medical History Surgery/Hospitalization HX: FIBROMYALGIA, NEUROPATHY, SPINAL STENOSIS, ANEMIA Surgeries: Yes (leep procedure, R knee scope, EGD, COLONOSCOPY, gastric bypass) Abdominal, Gallbladder, Orthopedic, Tubal Ligation Respiratory: Yes (excercised induced asthma) Asthma Currently Using CPAP: No Currently Using BIPAP: No Cardiac: Yes Hypertension Neurological: Yes Headaches /Migraines, Neuropathy 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 Disorders: Yes Female 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 Disorders: Denies, 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 0.0oz. 156.359852kt; 45.00 BMI Method:Stated General Appearance: WD/WN, no apparent distress, obese Eyes: bilateral eye normal inspection Mouth/Throat: normal mouth inspection, other (fractured tooth #7 with minimal erythema to the surrounding gingiva. Patient has obvious food particles in the teeth at the posterior parts of the mouth) Respiratory: no respiratory distress, no accessory muscle use Neurologic/Psychiatric: alert, normal mood/affect, oriented x 3 Skin: normal color, warm/dry Procedures/Interventions Suture Size: 4-0 Progress/Results/Core Measures Progress Progress Note : Time: 07:15 Progress Note I called and spoke with [facility] and got the patient an appointment at 12pm today for a pain appointment. Patient is sent out with a prescription for Pen VK as well as chlorhexadine oral rinse and Diclofenac. VSS no evidence of aggressive infection to the tooth or gingiva. Departure Impression Primary Impression: Pain, dental Disposition: 01 HOME, SELF-CARE Condition: Stable Departure-Patient Inst. Decision time for Depature: 07:11 Referrals: LULU COOPER APRN (PCP/Family) Primary Care Physician Patient Instructions: Dental Pain Add. Discharge Instructions: I have written prescriptions for you for Diclofenac, pain medication. 1 tablet every 8 hours WITH FOOD for pain. Chlorhexadine oral rinse - rinse 15ml in the mouth for 30 seconds and spit twice a day. Antibiotics 4 times a day for 10 days. YOU HAVE AN APPOINTMENT AT NOON TODAY FOR THE TOOTH AT THE [facility]. PLEASE KEEP THIS APPOINTMENT. Return to the Emergency Department for any new, concerning or emergent compla ints. Scripts Chlorhexidine Gluconate (Chlorhexidine Gluconate) 0.12 % Mouthwash 15 ML MM BID, #473 ML swish 30 seconds and spit twice a day Prov: PAOLA LOCKHART MD 01/25/23 Diclofenac Sodium (Diclofenac Sodium) 50 Mg Tablet.dr 50 MG PO Q8H PRN for PAIN, #15 TAB always take this medication with food Prov: PAOLA LOCKHART MD 01/25/23 Penicillin V Potassium (Penicillin V Potassium) 500 Mg Tablet 500 MG PO QID for 10 Days, #40 TAB Prov: PAOLA LOCKHART MD 01/25/23 Work/School Note: Work Release Form Date Seen in the Emergency Department: Jan 25, 2023 Return to Work: Jan 26, 2023 Images Mouth/Nose 1 - Fracture Tooth, Tenderness PAOLA LOCKHART MD Jan 25, 2023 06:27
[2023-01-25] MEDS ORDERED: PENI500T PO (07:10)
[2023-01-25] MEDS ORDERED: DICL50TA6 PO (07:10)
[2023-01-25] MEDS ORDERED: NFCHLORHGL MM (07:10)
[2023-01-25 07:25] VITALS: BP 117/78
== END 2023-01-25 07:25 | disposition home or self-care (01) ==
LOC: EDUNIT# 06:12 → ER 06:16
DX: K08.89 Other specified disorders of teeth and supporting structures (principal); E66.9 Obesity, unspecified; Z68.42 Body mass index [BMI] 45.0-49.9, adult
CPT/HCPCS: 99282